=== PATIENT | male | born 1940 | race Caucasian/White ===

== ENCOUNTER → 2019-10-11 10:20 | Outpatient (BNVA) | payer MEDICARE, MEDICAID, SELFPAY | PROVIDERS: Family Provider Nurse Practitioner Family; PCP Nurse Practitioner Family; Visit Provider Nurse Practitioner Family | DX: J01.10 Acute frontal sinusitis, unspecified (principal); E11.8 Type 2 diabetes mellitus with unspecified complications; E78.2 Mixed hyperlipidemia | CPT/HCPCS: 80061; 82044; 83036; 84460 ==

== ENCOUNTER 2019-10-26 10:52 | Outpatient (CLI) | payer MEDICARE, MEDICAID, SELFPAY ==
--- NOTE | 2019-10-26 11:01 | XRR_ITS ---
PROCEDURE INFORMATION: Exam: XR Chest, 2 Views Exam date and time: 10/26/2019 11:32 AM Age: 79 years old Clinical indication: Cough; Prior surgery; Surgery type: Cardiac TECHNIQUE: Imaging protocol: XR of the chest Views: 2 views. COMPARISON: [place] Chest 1 [place] [id number] 04/27/2018 4:15 PM FINDINGS: Lungs: Hyperinflation compatible with COPD. No CHF or focal consolidation. Pleural space: Unremarkable. No pleural effusion. No pneumothorax. Heart/Mediastinum: CABG. No cardiomegaly. Bones/joints: Sternotomy. XR/XR chest 2V* [id number] IMPRESSION: No acute findings.
== END 2019-10-26 10:53 | disposition home or self-care (01) ==
LOC: RAD 10:59
PROVIDERS: Family Provider Nurse Practitioner Family; PCP Nurse Practitioner Family; Visit Provider Nurse Practitioner Family
DX: J06.9 Acute upper respiratory infection, unspecified (principal); R05 Cough
CPT/HCPCS: 71046; 87804

== ENCOUNTER 2019-11-16 11:18 | Outpatient (CLI) | payer MEDICARE, MEDICAID, SELFPAY ==
--- NOTE | 2019-11-16 11:23 | XR_ITS ---
WS: [id number] XR chest 2V* [id number] REASON FOR EXAM: pneumonia follow up FINDINGS: Hyper aerated lungs are seen with flattening's of the hemidiaphragm and increase in retrost ernal clear space consistent with advanced chronic obstructive pulmonary disease. There is previous sternotomy changes noted. The heart is small there is arteriosclerotic changes seen. The overall appearance of the chest is similar to October 26, 2019. XR/XR chest 2V* [id number] IMPRESSION: Chronic obstructive pulmonary disease advanced.
== END 2019-11-16 11:19 | disposition home or self-care (01) ==
LOC: RAD 11:21
PROVIDERS: Family Provider Nurse Practitioner Family; PCP Nurse Practitioner Family; Visit Provider Nurse Practitioner Family
DX: J44.9 Chronic obstructive pulmonary disease, unspecified (principal); J18.9 Pneumonia, unspecified organism
CPT/HCPCS: 71046

== ENCOUNTER 2019-12-14 12:45 | Outpatient (CLI) | payer MEDICARE, MEDICAID, SELFPAY ==
--- NOTE | 2019-12-14 14:15 | USR_ITS ---
PROCEDURE INFORMATION: Exam: US Bilateral Noninvasive Physiologic Study of the Lower Extremity Arteries, Limited Exam date and time: 12/14/2019 12:52 PM Age: 79 years old Clinical indication: Pain; Leg, lower and foot; Left; Additional info: Deminished pedal pulse TECHNIQUE: Imaging protocol: Left Limited noninvasive physiologic studies of lower extremity arteries. Images were documented and archived. Exam is limited. COMPARISON: No relevant prior studies available. FINDINGS: Left femoral arteries: Waveforms are unremarkable. Left infrapopliteal arteries: Waveforms are unremarkable. Left Ankle-Brachial Index: 0.51 this finding is consistent with moderate disease [facility] [id number] IMPRESSION: Left side ZEB 0.51 consistent with moderate disease
== END 2019-12-14 12:46 | disposition home or self-care (01) ==
LOC: US 12:51
PROVIDERS: Family Provider Nurse Practitioner Family; PCP Nurse Practitioner Family; Visit Provider Podiatrist Foot & Ankle Surgery
DX: R09.89 Other specified symptoms and signs involving the circulatory and respiratory systems (principal)
CPT/HCPCS: 93923

== ENCOUNTER 2020-02-07 07:57 | Outpatient (CLI) | payer MEDICARE, MEDICAID, SELFPAY ==
[2020-02-07 08:44] LABS: Blood Urea Nitrogen 12 mg/dL (8-23)
[2020-02-07] MEDS: iodixanol 320 mg/mL 100mL Btl IV (08:59)
--- NOTE | 2020-02-07 09:00 | CT_ITS ---
WS: [id number] CTA ABDOMINAL AORTA WITH RUNOFF TECHNIQUE: Contrast enhanced CTA of the abdominal aorta with bilateral lower extremity runoff. Multip lanar reformatted images were obtained. MIP reformats were also reviewed. CLINICAL INFORMATION: Lifestyle limiting claudication with severely depressed ZEB COMPARISON: None. DLP: 1550.[address] [facility] at [facility] use at least one of these dose optimization techniques: automat ed exposure control; mA and/or kV adjustment per patient size (includes targeted exams where dose is matched to clinical indication); or iterative reconstruction. FINDINGS: RIGHT: Right common iliac artery is patent. Moderate calcified atheromatous disease. Internal and ext ernal iliac arteries are patent. Right external iliac stent is patent. Mid and distal external iliac artery stents are patent with mild segmental narrowing. Right common femoral artery is patent. SUPERF ICIAL FEMORAL ARTERY IS OCCLUDED AT THE ORIGIN WITH OCCLUDED BYPASS GRAFT. Deep femoral artery is pat ent. Superficial femoral artery remains occluded to the to the popliteal fossa. Popliteal artery is o ccluded. Trifurcation is occluded. No significant runoff. Right BKA. LEFT: Left common iliac artery is patent. External iliac artery stent is patent. Internal iliac arter y is patent. Moderate calcified atheromatous disease. External iliac artery stents distally are paten t. Deep femoral artery is patent. SUPERFICIAL FEMORAL ARTERY IS OCCLUDED AT THE ORIGIN. SFA remains o ccluded to the popliteal fossa. POPLITEAL ARTERY IS OCCLUDED. Some reconstitution at the trifurcation with segmental three-vessel runoff to the ankle. Anterior tibial runoff is dominant. Sternotomy. Subsegmental atelectasis the lung bases. Emphysematous changes in the lung bases. Several spiculated nodules in the right middle lobe and right lower lobe laterally measuring 7 to 8 mm. Rony tional similar-appearing fibrotic spiculated nodule in the lingula measuring 7 mm. Normal liver. Cholelithiasis. Normal spleen. Small esophageal hiatal hernia. Normal pancreas. IVC [address]. Thickening of the left adrenal gland likely due to adrenal hyperplasia. Adrenal glands normal. Normal renal parenchymal enhancement. No hydronephrosis. Mild renal cortical a trophy. Normal caliber abdominal aorta. Celiac and SMA are patent at the origin with moderate calcifi ed atheromatous disease. Moderate calcification of the renal artery origins bilaterally. Markedly enlarged calcified prostate measuring 6.6 x 4.8 cm. Recommend correlation PSA. Bladder outle t obstruction with diffuse bladder wall thickening. Sigmoid diverticulosis. No evidence of acute dive rticulitis. Disc space narrowing worse L4-5. Lumbar scoliosis. CT/CT angio abd aorta runof [id number] IMPRESSION: 1. Enlarged calcified prostate with bladder outlet obstruction. Correlation PS A. 2. No evidence of abdominal aortic aneurysm. 3. Cholelithiasis. 4. IVC filter. 5. 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 Popliteal artery is occluded. No significant runoff. 6. Left superficial femoral artery is occluded at the origin. This remains occ luded to the popliteal. Popliteal artery is occluded to the trifurcation with d iminutive poor three-vessel runoff to the ankle. 7. Several lobulated nodules in the lung bases measuring 78 mm. Recommend furt her evaluation with chest CT.
== END 2020-02-07 07:58 | disposition home or self-care (01) ==
LOC: RADWPI 08:02
PROVIDERS: Family Provider Nurse Practitioner Family; PCP Nurse Practitioner Family; Visit Provider Internal Medicine Cardiovascular Disease
DX: I73.9 Peripheral vascular disease, unspecified (principal); N40.0 Benign prostatic hyperplasia without lower urinary tract symptoms; K80.20 Calculus of gallbladder without cholecystitis without obstruction; R91.8 Other nonspecific abnormal finding of lung field
CPT/HCPCS: 75635; 82565; 84520; Q9967

== ENCOUNTER → 2020-02-28 11:14 | Outpatient (BNVA) | payer MEDICARE, MEDICAID, SELFPAY | PROVIDERS: Family Provider Nurse Practitioner Family; PCP Nurse Practitioner Family; Visit Provider Internal Medicine Cardiovascular Disease | DX: I73.9 Peripheral vascular disease, unspecified (principal) | CPT/HCPCS: 80048; 85025; 87635 ==

== ENCOUNTER 2020-03-04 13:09 | Observation (INO) | payer MEDICARE, MEDICAID, SELFPAY ==
--- NOTE | 2020-03-04 07:30 | XACV_ITS ---
Wt: 70 kg BSA: 1.87 m2 Any Known Allergies: No known allergies Gender: Male : 1940 Exam Type: Invasive Peripheral Vascular Procedure(s): Procedure Description: Peripheral Cath Diagnostic Procedure Procedure Description: Lower extremities' angiography Procedure Description: Peripheral vascular Intervention Procedure Description: PV Balloon Procedure Description: Lower Extremity Graft Angiography Exam Priority: Routine Conclusions Peripheral Procedure Description: Critical limb ischemia of the left leg and foot , Pitkin grade V :Lelia stage IV. Procedure #1 Abdominal aorta: Luminal irregularities#2 Right renal artery has luminal irregularities. Left renal artery has renal irregularity#3 Right common iliac artery has luminal irregularity with patent previously placed stent#4 Left common iliac artery has luminal irregularity #5 Left internal artery has luminal irregularity#7 Right internal artery is chronically occluded#8 Left common femoral artery is 100% chronically occluded#9 Left profunda femoral artery has luminal irregularity#10 Right SFA has 100% chronically occluded #11 Right profundofemoral artery is chronically occluded#12 left popliteal, tibioperoneal and below the knee arteries appear to be occluded however fills with faint collaterals Intervention: Through right common femoral approach and with the help of seeker and Glidewire we were able to cross the left SFA into the tibioperoneal trunk despite of multiple balloon angioplasties we were not able to restore the flow. Selective injections in the tibioperoneal trunk showed faint collaterals supplying anterior tibial at the end of the procedure. Overall procedure remain unsuccessful without any complication. Recommendations Usual post-cath care, referred to vascular surgery for possible bypass. Hemodynamic Data Phase:Rest AO : / ( 0.0 mmHg ) @ 4:38:00 AM / ( 0.0 mmHg ) @ 4:58:00 AM / ( 0.0 mmHg ) @ 5:00:00 AM 69.0 mmHg / 69.0 mmHg ( 56.0 mmHg ) @ 5:17:00 AM 119.0 mmHg / 41.0 mmHg ( 73.0 mmHg ) @ 7:27:00 AM Access Site Site: Left Popliteal Sheath Size: 4 Fr Hemost... Method: TR Band Hemost... Success: Successful Site: Left Popliteal Sheath Size: 6 Fr Hemost... Method: TR Band Hemost... Success: Successful Site: Right Femoral artery Sheath Size: 6 Fr Hemost... Method: Mechanical Compression Hemost... Success: Successful Procedure Details Findings Procedure Consent Obtained. Pre-Procedure Time Out. Identified patient by full name and date of as verbalized by the patient/guarantor. Does the consent match the physician's order: Yes. Accurate & Complete Informed Consent: Yes. Inpatient/Outpatient History & Physical on Chart: Yes. If H&P is completed, is and addenduem needed: N/A; If yes, is the addendum complete: N/A. Visualize and Verify Site with Patient/Guarantor: N/A. Relevant Radiology Images available: Yes. Pre-op teaching completed and patient verbalized understanding. The risks, benefits, and alternatives of sedation and/or procedure were discussed by physician. The patient agrees to continue. Procedure started. PERRLA. Strong, equal hand lute packer or applier bilaterally. Lungs clear x 5 lobes. IV Site on Arrival: 20 gauge in the right forearm. IV Fluids: 0.9% NaCl at KVO. 0 mL infused prior to label maker. Pre Procedural Pulses: left dorsalis pedis was Doppled. Pre Procedural Pulses: left posterior tibial was Doppled. Pre Procedural Pulses: bilateral radial was 2+. Right BKA. Oxygen started at 2liters/min via nasal canula. bilateral groins was prepped with chloroprep then draped in the usual sterile fashion. Physician notified. Equipment: 6F - Femoral. Cardiac Cath Pack. ACIST Manifold Kit Model BT 2000. Heparinized Saline (2 units/mL), 1000 mL bag. Kit, Micropuncture. Baseline sample Acquired. HR: 65 BPM. Family () updated by Juana Rebolledo. left popliteal and posterior tibial, DP and bitalerial groins was prepped with chloroprep then draped in the usual sterile fashion. Physician arrived. Physician scrubbed in. Time out performed with cath team. Immediate Pre-Procedure Time Out. Correct Patient: Yes; Correct Procedure: Yes; Correct Site: Yes; Correct Patient Position: Yes; Correct Supplies: Yes; Dried Flammable Prep: Yes; Blood Products Available: No;. Precious (ultrasound) to assist. updated. Lidocaine 1% infiltrated to the left posterior tibial. Arterial access obtained. Wire inserted and removed. sheath out. Lidocaine 1% infiltrated to the left DP. Wire inserted. seeker inserted over glide wire. wire out. hand injection. wire inserted. glide wire removed. seeker removed. Ped sheath KVO. Lidocaine 1% infiltrated to the right groin. Arterial access obtained with micropuncture set. venous access. wire and needle out. pressure held. Ultrasound called. Garcia from us arrived. Glidewire inserted into DP sheath. wire and catheter out. glidewire and seeker inserted. Glidewire and seeker out. DP sheath KVO. Garcia from US helping with access. A 5FrFr UF catheter in over wire. Side port of DP sheath attached to Normal Saline flush at KVO to maintain patency. Abdominal aortogram performed in AP @ 10 mL/sec for a total of 30 mL. glidewire inserted. catheter out. 6 fr short sheath exchanged for a 6fr long sheath. Brenda breaking out Mat for lunch. Left leg runoff performed 10ml for total of 30ml. [place] wire inserted and Seeker inserted over the glide. Attempting to advance Seeker and wire down left SFA. wire out hand injection performed. wire reinserted and attempted to advance down left SFA. wire out hand injection performed x 2. glidewire and seeker out. glidewire inserted into anterior tibial sheath. seeker inserted over glidewire. Side port of femoral sheath attached to Normal Saline flush at KVO to maintain patency. Glu check 95. Inflation number : 1 A AB ARMADA 35 OTW [id number] was prepped and advanced across the Superficial Femoral, Left , then inflated to 3 CORNELIO for 0:38 seconds. Inflation number: 2 The AB ARMADA 35 OTW [id number] was reinflated across the Superficial Femoral, Left, to 4 CORNELIO for 0:50 seconds. Inflation number: 3 The AB ARMADA 35 OTW [id number] was reinflated across the Superficial Femoral, Left, to 8 CORNELIO for 1:02 seconds. Inflation number: 4 The AB ARMADA 35 OTW [id number] was reinflated across the Superficial Femoral, Left, to 8 CORNELIO for 0:44 seconds. Inflation number: 5 The AB ARMADA 35 OTW [id number] was reinflated across the Superficial Femoral, Left, to 8 CORNELIO for 1:04 seconds. Inflation number: 6 The AB ARMADA 35 OTW [id number] was reinflated across the Superficial Femoral, Left, to 8 CORNELIO for 0:30 seconds. Inflation number: 7 The AB ARMADA 35 OTW [id number] was reinflated across the Superficial Femoral, Left, to 8 CORNELIO for 0:18 seconds. balloon out. hand injection (through upper sheath)10ml/sec for a total of 30ml. 6 fr long sheath exchanged for a 6fr short sheath. A TR Band was successful obtaining hemostatsis at the Left Popliteal insertion site. hand injection through femoral sheath. A Mechanical Compression was successful obtaining hemostatsis at the Right Femoral artery insertion site. TR band placed. Hemostasis obtained. Sheath(s) removed and manual pressure held until hemostasis was achieved. Sterile 4x4 and Op-site applied to the puncture site. No oozing or hematoma noted. Post sheath removal instructions were given and the patient verbalized understanding. Post Procedure: Pulses reassessed and unchanged. PERRLA. Strong, equal hand lute packer or applier bilaterally. No VTE prophylaxis required. Medication's Wasted: Lidocaine 1% = 4 mL. Medication's Wasted: Heparin = 2000 units. Total IV fluids: 250 mL. Fluoro: 70:07. Contrast type used: Visipaque 320 mgI/mL, 500 mL bottle. [id number]. Complications: none. Estimated blood loss: 5mL-10mL. Procedure completed. Patient transferred by bed to 1st floor. Post-op diagnosis: severe PAD. Occluded Left SFA. TR band removed. Vital chart was stopped. Procedure Medications Start: 9:28 AM Stop: 9:28 AM Medication: Versed Amount: 1 mg Route: I.V. Start: 9:28 AM Stop: 9:28 AM Medication: Fentanyl Amount: 50 mcg Route: I.V. Start: 10:19 AM Stop: 10:19 AM Medication: Versed Amount: 1 mg Route: I.V. Start: 10:19 AM Stop: 10:19 AM Medication: Fentanyl Amount: 50 mcg Route: I.V. Start: 11:13 AM Stop: 11:13 AM Medication: Versed Amount: 1 mg Route: I.V. Start: 11:13 AM Stop: 11:13 AM Medication: Fentanyl Amount: 50 mcg Route: I.V. Start: 12:06 PM Stop: 12:06 PM Medication: Versed Amount: 1 mg Route: I.V. Start: 12:21 PM Stop: 12:21 PM Medication: Fentanyl Amount: 50 mcg Route: I.V. I, the attending physician, have reviewed and verified all procedure medications. Yes, all medications given per verbal order History/Risk Factors Hypertension: Yes Dyslipidemia: Yes Diabetic Therapy: Oral Peripheral Arterial Disease (PAD): Yes Myocardial Infarction (WA): No Obesity: No Renal Disease: No Tobacco Use: Former Prior Interventions PCI: No CABG: Yes Valve Surgery: No Report Signatures Finalized by:Chasidy Hall MD on 03/17/2020 3:46:32 PM
[2020-03-04 08:12] VITALS: BP 134/83; PULSE 58; RESP 16; TEMP 37.1; O2SAT 97; BMI 21.6
--- NOTE | 2020-03-04 08:17 | USCV_ITS ---
Mauro Espino Age: 79 Gender: M : 1940 Exam Date: 03/04/2020 09:35 Ordering Phys: Chasidy Hall MD ([email or web address]) Technologist: Tahmina Mock Exam Location: [facility] [place] Indication: Findings Guidance provided in construction craft laborer for left DPA access. The dorsalis pedis artery appears to be patent. Only B-mode imaging is available. Conclusions Dorsalis pedis artery is identified and appears to be patent Dr Jeffery Wilkes MD FAC (Electronically Signed) Final Date: 05 March 2020 08:14 S
--- NOTE | 2020-03-04 09:06 | P.HP_ITS ---
Providers/Chief Complaint Admitting Physician: Chasidy Hall MD Primary Care Provider: ANNE MARIE Beverly Chief Complaint: life style limiting claudication of left leg History of Present Illness Details: Reason for : Lifestyle limiting claudication with severely depressed ZEB history of PAD history of vascular surgery and amputation of the right leg. 79-year-old male past medical history significant for severe PAD, continuous tobacco abuse hypertension hyperlipidemia diabetes mellitus who has been referred to us from Dr. Nascimento for worsening of lifestyle limiting claudication of left leg. Patient has ruborous foot. He has to sit down after few feet for few minutes to get over his cramping pain in the leg and claudication. He denies of pain at rest at this moment. He has history of vascular surgery with bypass graft and stents. 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 CTA was performed which showed severe left SFA proximal to distal occlusion, popli teal arterial disease extend into trifurcation and a monophasic flow. Today patient is here for peripheral angiogram and percutaneous intervention if indicated. Patient has been explained all risk benefit and alternative for the procedure. Patient has been explained warning regarding drug-coated balloon release by FDA as it increase mortality and subset. Patient would like to proceed with it and has given me permission to use drug-coated balloon if needed. Review of Systems Skin/Breast: Denies: surgical incision Medications/Allergies Home Medications Medication Instructions Recorded Confirmed Last Taken Type aspirin 81 mg tablet,delayed 81 mg PO DAILY tab 09/08/19 03/04/20 03/04/20 05:00 History release gabapentin 300 mg capsule 300 mg PO TID 09/08/19 03/04/20 03/04/20 05:00 History ramipril 2.5 mg capsule 2.5 mg PO DAILY cap 09/08/19 03/04/20 03/04/20 05:00 History lancets 30 gauge #25 each 09/27/19 02/14/20 Unknown Rx Diabetic Shoes #1 ea 11/21/19 02/14/20 Unknown Rx glipizide 5 mg tablet 2.5 mg PO DAILY #45 tab 12/26/19 02/14/20 03/03/20 05:00 Rx alendronate 70 mg tablet 70 mg PO .Q 7 DAYS #12 tab 01/29/20 03/04/20 03/03/20 06:00 Rx simvastatin 40 mg tablet 40 mg PO DAILY #90 tab 02/12/20 03/04/20 03/03/20 17:00 Rx tamsulosin 0.4 mg capsule 0.4 mg PO DAILY #90 cap 02/16/20 03/04/20 03/04/20 05:00 Rx omeprazole 20 mg PO BID 03/04/20 03/04/20 03/04/20 05:00 History Allergies Allergy/AdvReac Type Severity Reaction Status Date / Time No Known Allergies Allergy Verified 02/13/20 10:17 PFSH Acute PFSH: Medical History Amputation below knee Enrolled in chronic care management GERD (gastroesophageal reflux disease) Hx pulmonary embolism Hyperlipemia, mixed Type 2 diabetes mellitus with complication, without long-term current use of insulin Surgical History H/O cataract extraction RIGHT Hx of CABG Family History Mother Diabetes Hypertension Other CAD (coronary artery disease) Myocardial infarction Social History Smoking and tobacco status: former smoker Second hand smoke exposure: No Smoking risk assessment/counseling performed?: No Alcohol intake: never Desire information about alcohol rehabilitation?: No Counseling given: No Desire information about substance/drug rehabilitation?: No Counseling given: No Lives independently: Yes Household members: spouse Marital status: Current occupational status: retired History of recent travel: No Current gender identity: Male Vitals/I&O/Wt Last Vital Signs Temp 98.7 F 03/04/20 08:12 Pulse 58 L 03/04/20 08:12 Resp 16 03/04/20 08:12 BP 134/83 03/04/20 08:12 Pulse Ox 97 03/04/20 08:12 Weight last 48 hrs Weight 155 lb Physical Exam Narrative: EXAM NARRATIVE: GENERAL: Patient is alert, awake and oriented x3. NECK: No jugular vein distension. HEENT: No cyanosis. No icterus. No pallor. HEART: Regular S1 and S2. No murmur, rub or gallop. LUNGS: Clear to auscultate bilaterally. ABDOMEN: Soft, nontender and nondistended. Positive bowel sounds. No guarding, rebound or tenderness. CENTRAL NERVOUS SYSTEM: Grossly nonfocal. EXTREMITIES: Lower extremities with right below the knee amputation, no anterior and posterior tibial pulse on the left foot which appear to be ruborous Data Other Labs: CTA 1. Enlarged calcified prostate with bladder outlet obstruction. Correlation PSA. 2. No evidence of abdominal aortic aneurysm. 3. Cholelithiasis. 4. IVC filter. 5. 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 Popliteal artery is occluded. No significant runoff. 6. Left superficial femoral artery is occluded at the origin. This remains occluded to the popliteal. Popliteal artery is occluded to the trifurcation with diminutive poor three-vessel runoff to the ankle. 7. Several lobulated nodules in the lung bases measuring 78 mm. Recommend further evaluation with chest CT. Dictated By:Ricardo Duarte MD Signed By:Ricardo Duarteigned Date/Time:02/07/20 0931 A&P Assessment and plan (1) Peripheral arterial disease: Patient has lifestyle limiting claudication. Patient has severe peripheral vascular disease with chronic occlusion of left SFA all the way to popliteal artery. Today he is here for peripheral angiogram and percutaneous angioplasty/CSI atherectomy/balloon angioplasty if indicated. We will proceed with the procedure. Further plan will be advised after that Status: Acute (2) Type 2 diabetes mellitus with complication, without long-term current use of insulin: We will monitor with sliding scale Status: Acute Attestations Medical Necessity Statement*: I am not expecting his stay to cross more than 1 midnight Coding Level of Care Code New Pt Acute Treasury Specialist for Chg Fwd Patient Type New Medical Decision Making Moderate Complexity Diagnoses Peripheral arterial disease I73.9 Type 2 diabetes mellitus with complication, without long-term current use of insulin E11.8
--- NOTE | 2020-03-04 13:05 | PC.NURSE ---
Patient in room 112-2 at this time received from paint laboratory technician PCI; patient is alert and oriented; all monitoring equipment placed and patient educated on o2 safety as well as oriented to room. Patient verbalizes understanding.
[2020-03-04 13:06] LABS: Glucose Point of Care 95 mg/dL (70-110)
[2020-03-04] MEDS: nitroglycerin 1 gm/inch oint Pkt 1 INCH TOPICAL ×2 (13:51→19:21)
--- NOTE | 2020-03-04 14:10 | PC.NURSE ---
Called Dr stringer to clarify instructions for nitro paste and Kpab placement. Instructions to apply Nitro to LLE q6h as well as k pad.
[2020-03-04] MEDS: gabapentin 300 mg Capsule PO ×2 (15:38→20:47)
[2020-03-04] MEDS: pantoprazole DR 40 mg Tablet PO (18:22)
--- NOTE | 2020-03-04 19:15 | PC.NURSE ---
spoke with Dr stringer about patient being diabetic with no check or coverage instructions for accu checks and a low dose SS novolog given
[2020-03-04 19:21] VITALS: BP 127/71; PULSE 65; RESP 18; O2SAT 93
--- NOTE | 2020-03-04 19:30 | PC.NURSE ---
Received report from CHUY Catalan. Pt appears to be resting comfortably in bed with no needs at this time.
[2020-03-04 20:09] LABS: Glucose Point of Care 214 mg/dL (70-110)
[2020-03-04 23:21] VITALS: BP 118/62; PULSE 62; RESP 14; TEMP 36.7; O2SAT 90
[2020-03-05] MEDS: nitroglycerin 1 gm/inch oint Pkt 1 INCH TOPICAL ×2 (01:36→08:07)
[2020-03-05 03:00] VITALS: BP 119/57; PULSE 72; RESP 22; TEMP 37.2; O2SAT 91
[2020-03-05 06:04] LABS: Glucose Point of Care 112 mg/dL (70-110)
[2020-03-05 07:47] VITALS: BP 123/78; PULSE 76; RESP 21
[2020-03-05] MEDS: tamsulosin 0.4 mg Capsule PO (08:07)
[2020-03-05] MEDS: gabapentin 300 mg Capsule PO (08:07)
[2020-03-05] MEDS: aspirin 81 mg EC Tablet PO (08:07)
[2020-03-05] MEDS: atorvastatin 40 mg Tablet 20 MG PO (08:08)
[2020-03-05] MEDS: pantoprazole DR 40 mg Tablet PO (08:08)
[2020-03-05] MEDS: lisinopril 10 mg Tablet PO (08:08)
--- NOTE | 2020-03-05 08:50 | PM.DCS ---
Discharge Providers Date of Admission: 03/04/20 13:09 Date of Discharge: March 05, 2020 Attending Provider at Admission: Chasidy Hall MD Attending Provider at Discharge: Chasidy Hall MD Primary Care Provider: ANNE MARIE Beverly Diagnoses at Discharge Discharge Diagnosis (1) Peripheral arterial disease: Status: Acute (2) Type 2 diabetes mellitus with complication, without long-term current use of insulin: Status: Acute Reason for Visit Reason for Visit: life style limiting claudication of left leg Hospital Course Discharge Summary: 79-year-old male past medical history significant for severe PAD, continuous tobacco abuse hypertension hyperlipidemia diabetes mellitus who has been referred to us from Dr. Nascimento for worsening of lifestyle limiting claudication of left leg. Patient has ruborous foot. He has to sit down after few feet for few minutes to get over his cramping pain in the leg and claudication. He denies of pain at rest at this moment. He has history of vascular surgery with bypass graft and stents. 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 Patient underwent peripheral angiogram which showed severe left SFA proximal to distal occlusion, popliteal arterial disease extend into trifurcation and a monophasic flow. Despite of crossing the lesion and multiple balloon angioplasty were not able to establish flow. He will be referred to vascular surgery for possible bypass. There was no overnight event currently stable his foot is warm and he is not in pain at rest. I will refer him to Dr. Malcom Hernandez as an outpatient in [facility]. Patient agrees to it. Physical Exam Narrative: EXAM NARRATIVE: GENERAL: Patient is alert, awake and oriented x3. NECK: No jugular vein distension. HEENT: No cyanosis. No icterus. No pallor. HEART: Regular S1 and S2. No murmur, rub or gallop. LUNGS: Clear to auscultate bilaterally. ABDOMEN: Soft, nontender and nondistended. Positive bowel sounds. No guarding, rebound or tenderness. CENTRAL NERVOUS SYSTEM: Grossly nonfocal. EXTREMITIES: Lower extremities with right below the knee amputation, no anterior and posterior tibial pulse on the left foot which appear to be ruborous Discharge Data Data Completed and Pending: Completed Studies During Hospitalization Category Date Time Status CV guide vascular access [id number] Rout ine Ultrasound 03/04/20 08:17 Completed Pending at discharge Category Date Time Status DEVELOPMENT WRITER request for service Routin e Exams 03/04/20 07:30 Taken CV guide vascular access [id number] Rout ine Ultrasound 03/04/20 10:50 Taken Labs from last 24 hours 03/05/20 03/04/20 03/04/20 06:00 20:00 12:02 POC Glucose 112 214 95 Vitals: Last Vital Signs Temp 98.9 F 03/05/20 03:00 Pulse 76 03/05/20 07:47 Resp 21 H 03/05/20 07:47 BP 123/78 03/05/20 07:47 Pulse Ox 91 03/05/20 03:00 Discharge Plan Discharge Patient Disposition: Home, Self-Care Condition: Stable Prescriptions: Continued ramipril 2.5 mg capsule 2.5 mg PO DAILY RF: 0 aspirin 81 mg tablet,delayed release (DR/EC) 81 mg PO DAILY RF: 0 gabapentin 300 mg capsule 300 mg PO TID RF: 0 (DME) Diabetic Shoes Qty: 1 RF: 0 alendronate [Fosamax] 70 mg tablet 70 mg PO .Q 7 DAYS Qty: 12 RF: 1 simvastatin 40 mg tablet 40 mg PO DAILY Qty: 90 RF: 0 tamsulosin [Flomax] 0.4 mg capsule 0.4 mg PO DAILY Qty: 90 RF: 0 omeprazole 20 mg capsule,delayed release(DR/EC) 20 mg PO BID RF: 0 No Action glipizide 5 mg tablet See Rx Instructions .ROUTE .COMPLEX Qty: 45 RF: 0 lancets [OneTouch Delica Plus Lancet] 30 gauge misc See Rx Instructions .ROUTE .COMPLEX Qty: 100 RF: 0 Discharge Orders: Discharge Order (Routine); Ordered 03/05/20 Ordered By: Chasidy Hall Referrals: Chasidy Hall MD [Physician] - (You will be referred to Dr. Malcom Hernandez at [facility] for possible bypass of the left leg. Dr. Hernandez's office will contact you. If you do not hear from Dr. Hernandez's office over next [address] Liu office. He noticed any bleeding from the right groin please call Dr. Hall's office.) Discharge Diet: Cardiac Discharge Activity: Increase activity as tolerated Patient Instructions: Peripheral Artery Disease (DC), Peripheral Vascular Angioplasty (DC), Post Angiogram Home Care Instructions Activity Restrictions/Additional Instructions: You will be referred to Dr. Malcom Hernandez at [facility] for possible bypass of the left leg. Dr. Hernandez's office will contact you. If you do not hear from Dr. Hernandez's office over next [address] Liu office. He noticed any bleeding from the right groin please call Dr. Hall's office. Discharge Date/Time: 03/05/20 10:57 Discharge Attestations Time Spent in Discharge Care*: less than 30 min Quality Metrics Clinical Quality Measures During this hospital stay, did patient experience: None Coding Level of Care Code Established Pt Acute Supervisor Policy Change Clerks for Chg Fwd Patient Type Established History Expanded Problem Focused Exam Expanded Problem Focused Medical Decision Making Moderate Complexity Diagnoses Peripheral arterial disease I73.9 Type 2 diabetes mellitus with complication, without long-term current use of insulin E11.8
[2020-03-05 10:25] VITALS: PULSE 77
[2020-03-05 10:40] VITALS: BP 123/78; PULSE 77; RESP 19; O2SAT 96
== END 2020-03-05 10:57 | disposition home or self-care (01) ==
LOC: CSU 13:10
PROVIDERS: Admitting Provider Internal Medicine Cardiovascular Disease; PCP Nurse Practitioner Family; Visit Provider Internal Medicine Cardiovascular Disease
DX: I70.92 Chronic total occlusion of artery of the extremities (principal); I73.9 Peripheral vascular disease, unspecified; Z95.1 Presence of aortocoronary bypass graft; Z87.891 Personal history of nicotine dependence; I10 Essential (primary) hypertension; E78.5 Hyperlipidemia, unspecified; E11.8 Type 2 diabetes mellitus with unspecified complications; Z79.82 Long term (current) use of aspirin
CPT/HCPCS: 12345; 36415; 36416; 37224; 75625; 75710; 76937; 82962; 96372; A4216; C1725; C1769; C1887; C1894; G0378; J1644; J1815; J2001; J2250; J3010; J7030; Q0163; Q9967

== ENCOUNTER → 2020-03-07 11:06 | Outpatient (BNVA) | payer MEDICARE, MEDICAID, SELFPAY | PROVIDERS: PCP Nurse Practitioner Family; Visit Provider Nurse Practitioner Family | DX: N40.0 Benign prostatic hyperplasia without lower urinary tract symptoms (principal); R93.89 Abnormal findings on diagnostic imaging of other specified body structures; R91.1 Solitary pulmonary nodule | CPT/HCPCS: 84153 ==

== ENCOUNTER → 2020-05-10 11:29 | Outpatient (BNVA) | payer MEDICARE, MEDICAID, SELFPAY | PROVIDERS: PCP Nurse Practitioner Family; Visit Provider Nurse Practitioner Family | DX: E11.8 Type 2 diabetes mellitus with unspecified complications (principal); E78.2 Mixed hyperlipidemia; Z79.899 Other long term (current) drug therapy | CPT/HCPCS: 80053; 80061; 82043; 83036 ==

== ENCOUNTER → 2020-06-06 11:29 | Outpatient (BNVA) | payer MEDICARE, MEDICAID, SELFPAY | PROVIDERS: PCP Nurse Practitioner Family; Visit Provider Nurse Practitioner Family | DX: R05 Cough (principal); Z20.828 Contact with and (suspected) exposure to other viral communicable diseases | CPT/HCPCS: 87635 ==

== ENCOUNTER 2020-06-07 17:44 | Emergency (ER) | payer MEDICARE, MEDICAID, SELFPAY ==
[2020-06-07 18:00] VITALS: BP 135/71; PULSE 81; RESP 30; TEMP 37.5; O2SAT 96; BMI 22.4
--- NOTE | 2020-06-07 18:39 | XRR_ITS ---
PROCEDURE INFORMATION: Exam: XR Chest, 1 View Exam date and time: 06/07/2020 6:50 PM Age: 80 years old Clinical indication: Shortness of breath; Patient HX: Cough, SOB TECHNIQUE: Imaging protocol: XR of the chest Views: 1 view. COMPARISON: CR XR chest 2V* [id number] 11/16/2019 11:30 AM FINDINGS: Lungs: Linear atelectasis or scarring in the lung bases. Changes of emphysema. No focal consolidation. Pleural space: Unremarkable. No pleural effusion. No pneumothorax. Heart/Mediastinum: Unremarkable. No cardiomegaly. Bones/joints: Sternotomy wires. Right rotator cuff arthropathy. XR/XR chest 1V [id number] IMPRESSION: No acute findings.
[2020-06-07 18:49] VITALS: BP 135/71; PULSE 78; RESP 18; O2SAT 95
[2020-06-07 18:58] VITALS: O2SAT 93
[2020-06-07 19:04] VITALS: O2SAT 97
[2020-06-07] MEDS: dexamethasone 4 mg/mL INJ 6 MG IVP (19:39)
[2020-06-07 19:41] VITALS: BP 134/70; PULSE 88; RESP 20; O2SAT 94
[2020-06-07 19:55] VITALS: BP 134/70; PULSE 88; RESP 20; O2SAT 94
--- NOTE | 2020-06-07 19:55 | PC.NURSE ---
PATIENT GIVEN ALBUTEROL NEB PRIOR TO DC
--- NOTE | 2020-06-08 18:20 | ED_ITS ---
HPI - SOB/Dyspnea General: Chief Complaint: Shortness of Breath/Dyspnea Stated Complaint: SOB/ COVID POSITIVE Time Seen by Provider: 06/07/20 18:38 History of Present Illness: HPI Narrative: 80-year-old male presents after testing positive for COVID-19, and being told by office staff at his primary care physician's office to come to the hospital. He essentially has no complaints at this point. I am told he had a couple of loose stools earlier. He had tested positive a couple of days ago. He had a fever then, not now. He says that he was short of breath, but currently is not. He is breathing room air. MD elicited complaint: shortness of breath Onset (ago): day(s) Context: recent illness Timing: intermittent Severity: moderate Exacerbating factors: nothing Relieving factors: nothing Associated symptoms: Reports cough and fever(s); Deny chest pain, nausea, palpitations or vomiting Review of Systems Const: Reports: fever(s) Eyes: Denies: change in vision or blurry vision ENMT: Denies: change in hearing, post nasal drip or sinus pain Card: Denies: chest pain, palpitations or irregular heart rhythm Resp: Reports: dyspnea and non-productive cough; Denies: productive cough or wheezing GI: Reports: diarrhea; Denies: nausea or vomiting : Denies: difficulty urinating or hematuria Musc: Denies: neck pain or joint redness Skin/Breast: Denies: rash or erythema Neuro: Denies: headache(s) or seizure-like activity Psych: Denies: anxiety PFS ED PFSH: Medical History (Updated 06/07/20 @ 19:14 by Papo Falk DO) Amputation below knee Enrolled in chronic care management GERD (gastroesophageal reflux disease) Hx pulmonary embolism Hyperlipemia, mixed Type 2 diabetes mellitus with complication, without long-term current use of insulin Surgical History H/O cataract extraction RIGHT Hx of CABG Family History Mother Diabetes Hypertension Other CAD (coronary artery disease) Myocardial infarction Social History Smoking and tobacco status: former smoker Second hand smoke exposure: No Smoking risk assessment/counseling performed?: No Alcohol intake: never Desire information about alcohol rehabilitation?: No Counseling given: No Desire information about substance/drug rehabilitation?: No Counseling given: No Lives independently: Yes Household members: spouse Marital status: Current occupational status: retired History of recent travel: No Current gender identity: Male Physical Exam Const: GENERAL APPEARANCE: well developed ORIENTATION/CONSCIOUSNESS: Yes oriented to person and Yes oriented to place; not oriented to time HENMT: COMMON NORMALS: normocephalic HEAD & SCALP: normocephalic; no scalp tenderness FACE & SINUS: normal facial exam NOSE: No nasal discharge present Eye: COMMON NORMALS: Equal, round and reactive pupils present, EOMs intact bilaterally and conjunctivae normal EYELID: eyelids normal CONJUNCTIVA: Yes conjunctivae normal PUPIL: Yes Equal, round and reactive pupils present Neck/C-Spine: GENERAL: No tracheal deviation Chest: COMMONS NORMALS: normal inspection of the chest CHEST: No tenderness Resp: COMMON NORMALS: clear to auscultation bilaterally EFFORT & INSPECTION: No tachypneic, No respiratory distress, No retractions, No uses accessory muscles and No tracheal deviation AUSCULTATION: clear to auscultation bilaterally, no rhonchi, no wheezes and lung sounds not diminished Cardio: COMMON NORMALS: regular rate and regular rhythm RATE: regular rate RHYTHM: regular rhythm HEART SOUNDS: no murmurs PERIPHERAL PULSES: radial pulses present GI: INSPECTION: No abdominal distension AUSCULTATION: No Hyperactive bowel sounds present and No Hypoactive bowel sounds present PALPATION: No Guarding due to palpation present (GI) and No Rigid due to palpation PERCUSSION: no dullness to percussion and no tympanic to percussion Neuro: SENSORIUM/ORIENTATION: Yes oriented to person, Yes oriented to place and No oriented to time Skin: COMMON NORMALS: no rashes or lesions noted GENERAL SKIN EXAM: no rashes or lesions noted Course Vital Signs: Vital signs: Vital Signs Temperature 99.5 F 06/07/20 18:00 Pulse Rate 88 06/07/20 19:55 Respiratory Rate 20 H 06/07/20 19:55 Blood Pressure 134/70 06/07/20 19:55 Pulse Oximetry 94 06/07/20 19:55 MDM - SOB/Dyspnea MDM Narrative: Medical decision making narrative: 80-year-old male who is COVID positive. He is not requiring oxygen at this point. His x-ray does show some peripheral infiltrates suggestive of COVID-19 pneumonia. His vitals however are good. He is awake and talking. In this case, hospitalization is not likely required. He will be discharged Discharge Plan Discharge Patient Disposition: Home Clinical Impression: COVID-19, Pneumonia due to COVID-19 virus Condition: Stable Prescriptions: New dexamethasone 6 mg tablet 6 mg PO DAILY Qty: 5 RF: 0 No Action ramipril 2.5 mg capsule 2.5 mg PO DAILY RF: 0 aspirin 81 mg tablet,delayed release (DR/EC) 81 mg PO DAILY RF: 0 (DME) Diabetic Shoes Qty: 1 RF: 0 alendronate [Fosamax] 70 mg tablet 70 mg PO .Q 7 DAYS Qty: 12 RF: 1 tamsulosin [Flomax] 0.4 mg capsule 0.4 mg PO DAILY Qty: 90 RF: 0 glipizide 5 mg tablet See Rx Instructions .ROUTE .COMPLEX Qty: 45 RF: 0 lancets [OneTouch Delica Plus Lancet] 30 gauge misc See Rx Instructions .ROUTE .COMPLEX Qty: 100 RF: 0 (DME) Blood Glucose Test Strip See Rx Instructions .ROUTE .MEDSUPPLY Qty: 10 RF: 0 omeprazole 20 mg capsule,delayed release(DR/EC) See Rx Instructions .ROUTE .COMPLEX Qty: 60 RF: 0 gabapentin 300 mg capsule 300 mg PO TID Qty: 270 RF: 0 simvastatin 40 mg tablet See Rx Instructions .ROUTE .COMPLEX Qty: 90 RF: 0 Discharge Orders: Discharge Order (Routine); Ordered 06/07/20 Ordered By: Papo Falk Referrals: Dulce Maria Alonzo FNP [Primary Care Provider] - 4-7 days Discharge Diet: Advance as tolerated Discharge Activity: Limit activity as instructed Patient Instructions: Viral Pneumonia (ED) Activity Restrictions/Additional Instructions: Medications as directed. Use your inhaler given to you in the ER, 2 puffs every 4 hours for the next 48 hours, then as needed. Watch your blood sugars closely, as they may increase on the dexamethasone. Return for worsening shortness of breath despite treatment, mental status changes, worsening diarrhea, other concerning symptoms. You should isolate your self from other [id number] positive people for at least 2 weeks. Discharge Date/Time: 06/07/20 19:56 Coding Level of Care Code ED [employer] for [employer]
== END 2020-06-07 19:56 | disposition home or self-care (01) ==
PROVIDERS: Emergency Provider Emergency Medicine; PCP Nurse Practitioner Family
DX: U07.1 COVID-19 (principal); J12.89 Other viral pneumonia; Z79.82 Long term (current) use of aspirin; Z89.519 Acquired absence of unspecified leg below knee; E78.2 Mixed hyperlipidemia; E11.9 Type 2 diabetes mellitus without complications; Z95.1 Presence of aortocoronary bypass graft; Z87.891 Personal history of nicotine dependence
CPT/HCPCS: 12345; 71045; 99283; J1100; J3535

== ENCOUNTER 2020-06-14 12:05 | Inpatient (IN) | payer MEDICARE, MEDICAID, SELFPAY ==
[2020-06-14] VITALS (28 sets, daily range): BP systolic 90–122; BP diastolic 44–84; PULSE 51–108; RESP 11–34; TEMP 36.8; O2SAT 91–99; BMI 24.4
--- NOTE | 2020-06-14 12:08 | XR_ITS ---
WS: [id number] Portable AP upright chest, 06/14/2020 Clinical Data: sob Comparison: Portable chest, 06/07/2020. Findings: There are patchy bilateral opacities which could represent minimal pneumonia. No nodules, m asses or effusions are seen. The heart is normal. The pulmonary vascularity is not increased. No pneu mothorax is seen. The diaphragms are flattened. Midline sternotomy sutures are present. The aortic ar ch and descending aorta show tortuosity and calcification. XR/XR chest 1V portable [id number] Impression: 1. Patchy bilateral opacities which could represent pneumonia recommend repeat chest x-ray in one to 2 days. 2. Atherosclerosis and hyperinflation.
--- NOTE | 2020-06-14 12:08 | ECG_ITS ---
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 Measurements Intervals [place] Rate: 74 P: 140 MD: 153 QRS: -16 QRSD: 120 T: 152 QT: 370 QTc: 412 Interpretive Statements ELECTRONIC VENTRICULAR PACEMAKER ABNORMAL RHYTHM ECG Compared to ECG 04/27/2018 20:05:44 Sinus rhythm no longer present Ventricular premature complex(es) no longer present Left-axis deviation no longer present Myocardial infarct finding no longer present Electronically Signed On 06-14-2020 20:37:51 CDT by Chasidy Hall M.D. [id number]
[2020-06-14 12:21] LABS: ABG PCO2 26.7 mmHg (35-45); ABG PH Result 7.48 (7.35-7.45); Arterial Blood Gas Hematocrit 50.1 % (42-52); Blood Gas Allen Test Pos; Blood Gas Operator Identificat MONRO; Blood Gas Sample Site Radial, left; Blood Gas Sample Type Arterial; HCO3 ABG 19.8 mmol/L (22-26); Oxygen Device ROOM AIR; PO2 ABG 50.1 mmHg (80.0-100.0)
[2020-06-14 12:50] LABS: Basophils % 0.2 %; Hematocrit 47.4 % (42.0-52.0); Hemoglobin 15.9 g/dL (11.7-16.6); Lymphocytes # 0.5 10^3/uL (0.8-4.8); Lymphocytes % 8.3 %; Mean Corpuscular HGB Conc 33.5 g/dL (30.0-36.0); Mean Corpuscular Hemoglobin 29.4 pg (28.0-34.0); Mean Corpuscular Volume 87.6 fL (80-94); Mean Platelet Volume 9.7 fL (7.4-10.4); Monocytes # 0.6 10^3/uL (0.2-0.9); Monocytes % 8.9 %; Neutrophils # 5.18 10^3/uL (1.8-7.7); Neutrophils % 82.1 %; Nucleated Red Blood Cells % 0 %; Platelet Count 243 10^3/cmm (130-400); Red Blood Count 5.41 10^6/uL (4.1-5.3); Red Cell Distribution Width 14.3 % (12.1-15.1); White Blood Count 6.3 10^3/uL (4.0-10.0)
[2020-06-14 13:07] LABS: Lactic Sepsis W/Reflex 1.8 mmol/L (0.5-2.2)
[2020-06-14 13:08] LABS: Alanine Aminotransferase 16 U/L (0-41); Albumin Level 3.8 g/dL (3.5-5.2); Alkaline Phosphatase 64 IU/L (40-130); Anion Gap 17.2 (5-19); Aspartate Amino Transferase 26 U/L (0-40); Blood Urea Nitrogen 24 mg/dL (8-23); C Reactive Protein 43.9 mg/L (0.0-4.9); Calcium 8.5 mg/dL (8.5-10.5); Carbon Dioxide 23 mmol/L (22-29); Chloride 92 mmol/L (98-107); Ferritin 671 ng/mL (30-400); Globulin 3.3 g/dL (1.3-4.6); Glucose 157 mg/dL (65-115); Lactate Dehydrogenase 282 U/L (135-225); Osmolality Calculated 273 mOsm/kg (285-295); Potassium 4.2 mmol/L (3.5-5.1); Sodium 128 mmol/L (136-145); Total Bilirubin 0.6 mg/dL (0.15-1.2); Total Protein 7.1 g/dL (6.6-8.7)
[2020-06-14 13:12] LABS: Fibrinogen 489 mg/dL (174-498)
[2020-06-14 13:13] LABS: D Dimer 0.92 ug/mIFEU (0-0.59)
--- NOTE | 2020-06-14 13:23 | ED_ITS ---
Documented by User: Jany Quinonesmino 06/14/20 16:42 HPI - SOB/Dyspnea General: Chief Complaint: Shortness of Breath/Dyspnea Stated Complaint: COVID POSITIVE, SOB, COUGH,TEMP Time Seen by Provider: 06/14/20 12:08 Source: patient Mode of arrival: ambulatory Limitations: no limitations History of Present Illness: HPI Narrative: 80 yo male patient presents to ER stating he tested positive for covid and over the last few days has progressively become more SOB and weakness. Pt denies chest pain, abd pain, n/v/d. Pt states he is unsure if he has been running a fever. Pt states he has not eaten or drank much last few days. Pt has PMH CABG, COPD MD elicited complaint: shortness of breath, cough and pain with inspiration Pertinent past history: COPD Onset (ago): day(s) (3) Context: other (Covid-19) Timing: progressively worsening Severity: moderate Exacerbating factors: exertion Relieving factors: nothing Known history of: COPD Associated symptoms: Reports chest congestion and cough; Deny abdominal pain, chest pain, dizziness, fever(s), lightheadedness, nausea, palpitations, syncope or vomiting Treatment prior to arrival: none Related Data: Home oxygen amount: none Review of Systems General: Reports: 10 or more systems reviewed and unremarkable except in HPI and below Const: Reports: body aches, change in appetite, fatigue and malaise; Denies: fever(s) or chills Eyes: Denies: change in vision ENMT: Denies: throat pain, odynophagia, mouth pain or dental pain Card: Reports: dyspnea on exertion; Denies: chest pain, palpitations, irregular heart rhythm, swelling of feet/ankles, lightheadedness or syncope Resp: Reports: dyspnea, productive cough, wheezing and chest congestion GI: Denies: abdominal pain, nausea, vomiting or diarrhea : Denies: flank pain, difficulty urinating, dysuria, urinary frequency or urinary urgency Musc: Denies: neck pain or back pain Neuro: Denies: headache(s), numbness in extremities, weakness in extremities, sensory changes, lack of coordination, difficulty walking, frequent falls, dizziness, vertigo, confusion or behavioral changes Psych: Denies: suicidal ideation or homicidal ideation PFS ED PFSH: Medical History Amputation below knee Enrolled in chronic care management GERD (gastroesophageal reflux disease) History of GI bleed Hx pulmonary embolism Hyperlipemia, mixed Type 2 diabetes mellitus with complication, without long-term current use of insulin Surgical History H/O cataract extraction RIGHT Hx of CABG Family History Mother Diabetes Hypertension Other CAD (coronary artery disease) Myocardial infarction Social History Smoking and tobacco status: former smoker Second hand smoke exposure: No Smoking risk assessment/counseling performed?: No Alcohol intake: never Desire information about alcohol rehabilitation?: No Counseling given: No Desire information about substance/drug rehabilitation?: No Counseling given: No Lives independently: Yes Household members: spouse Marital status: Current occupational status: retired History of recent travel: No Current gender identity: Male Course ED course: CT PE protool is negative for PE There are no Covid beds here at [facility], I ramez try [facility] for COVID transfer Vital Signs: Vital signs: Vital Signs Temperature 98.2 F 06/14/20 12:19 Pulse Rate 58 L 06/14/20 20:57 Respiratory Rate 18 06/14/20 20:57 Blood Pressure 104/47 06/14/20 20:30 Pulse Oximetry 93 06/14/20 20:57 MDM - SOB/Dyspnea Lab Data: Labs: Lab Results 06/14/20 06/14/20 06/14/20 Range/Units 12:08 12:43 12:43 WBC (4.0-10.0) 10^3/ uL RBC (4.1-5.3) 10^6/u L Hgb (11.7-16.6) g/dL Hct (42.0-52.0) % MCV (80-94) fL MCH (28.0-34.0) pg MCHC (30.0-36.0) g/dL RDW (12.1-15.1) % Plt Count (130-400) 10^3/c mm MPV (7.4-10.4) fL Neut % (Auto) % Lymph % (Auto) % [place] % (Auto) % Eos % (Auto) % Baso % (Auto) % Neut # (Auto) (1.8-7.7) 10^3/u L Lymph # (Auto) (0.8-4.8) 10^3/u L [place] # (Auto) (0.2-0.9) 10^3/u L Eos # (Auto) (0.0-0.8) 10^3/u L Baso # (Auto) (0.0-0.1) 10^3/u L Nucleated RBC % (a uto) % Nucleated RBCs # /100WBC Fibrinogen 489 (174-498) mg/dL D-Dimer 0.92 H (0-0.59) ug/mIFE U Specimen Type Arterial Sample Site Radial, left ABG pH 7.48 H (7.35-7.45) ABG pCO2 26.7 L (35-45) mmHg ABG pO2 50.1 L (80.0-100.0) mmH g ABG HCO3 19.8 L (22-26) mmol/L ABG Base Excess -2.0 (-2.0-2.0) mmol/ L Erlin Test Pos Hematocrit 50.1 (42-52) % O2 Delivery Device Room air FiO2 21.0 % Research Professional ID Monro Sodium 128 L (136-145) mmol/L Potassium 4.2 (3.5-5.1) mmol/L Chloride 92 L (98-107) mmol/L Carbon Dioxide 23 (22-29) mmol/L Anion Gap 17.2 (5-19) BUN 24 H (8-23) mg/dL Creatinine 0.9 (0.7-1.2) mg/dL GFR Calculation Not Reportable Glucose 157 H (65-115) mg/dL Calculated Osmolal ity 273 L (285-295) mOsm/k g Lactic Acid (0.5-2.2) mmol/L Calcium 8.5 (8.5-10.5) mg/dL Iron (59-158) ug/dL TIBC mcg/dl % Saturation (20-50) % Unsat Iron Binding (112-347) ug/dL Ferritin 671 H (30-400) ng/mL Total Bilirubin 0.6 (0.15-1.2) mg/dL AST 26 (0-40) U/L ALT 16 (0-41) U/L Alkaline Phosphata se 64 (40-130) IU/L Lactate Dehydrogen ase 282 H (135-225) U/L C-Reactive Protein 43.9 H (0.0-4.9) mg/L NT-Pro-B Natriuret Pep (0-450) pg/mL Total Protein 7.1 (6.6-8.7) g/dL Albumin 3.8 (3.5-5.2) g/dL Globulin 3.3 (1.3-4.6) g/dL Procalcitonin (0-0.5) ng/mL TSH (0.27-4.20) uIU/ mL 06/14/20 06/14/20 06/14/20 Range/Units 12:43 12:43 12:45 WBC 6.3 (4.0-10.0) 10^3/ uL RBC 5.41 H (4.1-5.3) 10^6/u L Hgb 15.9 (11.7-16.6) g/dL Hct 47.4 (42.0-52.0) % MCV 87.6 (80-94) fL MCH 29.4 (28.0-34.0) pg MCHC 33.5 (30.0-36.0) g/dL RDW 14.3 (12.1-15.1) % Plt Count 243 (130-400) 10^3/c mm MPV 9.7 (7.4-10.4) fL Neut % (Auto) 82.1 % Lymph % (Auto) 8.3 % [place] % (Auto) 8.9 % Eos % (Auto) 0.0 % Baso % (Auto) 0.2 % Neut # (Auto) 5.18 (1.8-7.7) 10^3/u L Lymph # (Auto) 0.5 L (0.8-4.8) 10^3/u L [place] # (Auto) 0.6 (0.2-0.9) 10^3/u L Eos # (Auto) 0.0 (0.0-0.8) 10^3/u L Baso # (Auto) 0.0 (0.0-0.1) 10^3/u L Nucleated RBC % (a uto) 0 % Nucleated RBCs # 0.0 /100WBC Fibrinogen (174-498) mg/dL D-Dimer (0-0.59) ug/mIFE U Specimen Type Sample Site ABG pH (7.35-7.45) ABG pCO2 (35-45) mmHg ABG pO2 (80.0-100.0) mmH g ABG HCO3 (22-26) mmol/L ABG Base Excess (-2.0-2.0) mmol/ L Erlin Test Hematocrit (42-52) % O2 Delivery Device FiO2 % Research Professional ID Sodium (136-145) mmol/L Potassium (3.5-5.1) mmol/L Chloride (98-107) mmol/L Carbon Dioxide (22-29) mmol/L Anion Gap (5-19) BUN (8-23) mg/dL Creatinine (0.7-1.2) mg/dL GFR Calculation Glucose (65-115) mg/dL Calculated Osmolal ity (285-295) mOsm/k g Lactic Acid 1.8 (0.5-2.2) mmol/L Calcium (8.5-10.5) mg/dL Iron 19 L (59-158) ug/dL TIBC 238 mcg/dl % Saturation 7.9 L (20-50) % Unsat Iron Binding 219 (112-347) ug/dL Ferritin (30-400) ng/mL Total Bilirubin (0.15-1.2) mg/dL AST (0-40) U/L ALT (0-41) U/L Alkaline Phosphata se (40-130) IU/L Lactate Dehydrogen ase (135-225) U/L C-Reactive Protein (0.0-4.9) mg/L NT-Pro-B Natriuret Pep 1717 H (0-450) pg/mL Total Protein (6.6-8.7) g/dL Albumin (3.5-5.2) g/dL Globulin (1.3-4.6) g/dL Procalcitonin 0.09 (0-0.5) ng/mL TSH (0.27-4.20) uIU/ mL 06/14/20 Range/Units 12:45 WBC (4.0-10.0) 10^3/ uL RBC (4.1-5.3) 10^6/u L Hgb (11.7-16.6) g/dL Hct (42.0-52.0) % MCV (80-94) fL MCH (28.0-34.0) pg MCHC (30.0-36.0) g/dL RDW (12.1-15.1) % Plt Count (130-400) 10^3/c mm MPV (7.4-10.4) fL Neut % (Auto) % Lymph % (Auto) % [place] % (Auto) % Eos % (Auto) % Baso % (Auto) % Neut # (Auto) (1.8-7.7) 10^3/u L Lymph # (Auto) (0.8-4.8) 10^3/u L [place] # (Auto) (0.2-0.9) 10^3/u L Eos # (Auto) (0.0-0.8) 10^3/u L Baso # (Auto) (0.0-0.1) 10^3/u L Nucleated RBC % (a uto) % Nucleated RBCs # /100WBC Fibrinogen (174-498) mg/dL D-Dimer (0-0.59) ug/mIFE U Specimen Type Sample Site ABG pH (7.35-7.45) ABG pCO2 (35-45) mmHg ABG pO2 (80.0-100.0) mmH g ABG HCO3 (22-26) mmol/L ABG Base Excess (-2.0-2.0) mmol/ L Erlin Test Hematocrit (42-52) % O2 Delivery Device FiO2 % Research Professional ID Sodium (136-145) mmol/L Potassium (3.5-5.1) mmol/L Chloride (98-107) mmol/L Carbon Dioxide (22-29) mmol/L Anion Gap (5-19) BUN (8-23) mg/dL Creatinine (0.7-1.2) mg/dL GFR Calculation Glucose (65-115) mg/dL Calculated Osmolal ity (285-295) mOsm/k g Lactic Acid (0.5-2.2) mmol/L Calcium (8.5-10.5) mg/dL Iron (59-158) ug/dL TIBC mcg/dl % Saturation (20-50) % Unsat Iron Binding (112-347) ug/dL Ferritin (30-400) ng/mL Total Bilirubin (0.15-1.2) mg/dL AST (0-40) U/L ALT (0-41) U/L Alkaline Phosphata se (40-130) IU/L Lactate Dehydrogen ase (135-225) U/L C-Reactive Protein (0.0-4.9) mg/L NT-Pro-B Natriuret Pep (0-450) pg/mL Total Protein (6.6-8.7) g/dL Albumin (3.5-5.2) g/dL Globulin (1.3-4.6) g/dL Procalcitonin (0-0.5) ng/mL TSH 10.79 H (0.27-4.20) uIU/ mL Discharge Plan Discharge Patient Disposition: Admitted As Inpatient Admit Provider: John Joya Condition: Stable Referrals: Dulce Maria Alonzo FNP [Primary Care Provider] - Discharge Date/Time: 06/14/20 18:26 Sign Out Sign Out Data: Patient Sign Out occurred on 06/14/20 at 17:18. Patient's care was discussed, and care was transferred from to YENIFER Woods. Coding Level of Care Code ED [facility] for Abdulazizg Laith Documented by User: YENIFER Woods 06/14/20 23:16 HPI - SOB/Dyspnea General: Chief Complaint: Shortness of Breath/Dyspnea Stated Complaint: COVID POSITIVE, SOB, COUGH,TEMP Time Seen by Provider: 06/14/20 12:08 [facility] ED 2 PFSH: Medical History Amputation below knee Enrolled in chronic care management GERD (gastroesophageal reflux disease) History of GI bleed Hx pulmonary embolism Hyperlipemia, mixed Type 2 diabetes mellitus with complication, without long-term current use of insulin Surgical History H/O cataract extraction RIGHT Hx of CABG Family History Mother Diabetes Hypertension Other CAD (coronary artery disease) Myocardial infarction Social History Smoking and tobacco status: former smoker Second hand smoke exposure: No Smoking risk assessment/counseling performed?: No Alcohol intake: never Desire information about alcohol rehabilitation?: No Counseling given: No Desire information about substance/drug rehabilitation?: No Counseling given: No Lives independently: Yes Household members: spouse Marital status: Current occupational status: retired History of recent travel: No Current gender identity: Male Course Vital Signs: Vital signs: Vital Signs Temperature 98.2 F 06/14/20 12:19 Pulse Rate 58 L 06/14/20 20:57 Respiratory Rate 18 06/14/20 20:57 Blood Pressure 104/47 06/14/20 20:30 Pulse Oximetry 93 06/14/20 20:57 MDM - SOB/Dyspnea MDM Narrative: Medical decision making narrative: Patient care was signed out to me, but patient was admitted and Jany Nguyễn contacted hospitalist and talked to them about patient case. Patient was admitted into the hospital right as I came on shift. I had no involvement in patient care or plan of care. Lab Data: Attestation: I reviewed the patient's lab results. Labs: Lab Results 06/14/20 06/14/20 06/14/20 Range/Units 12:08 12:43 12:43 WBC (4.0-10.0) 10^3/ uL RBC (4.1-5.3) 10^6/u L Hgb (11.7-16.6) g/dL Hct (42.0-52.0) % MCV (80-94) fL MCH (28.0-34.0) pg MCHC (30.0-36.0) g/dL RDW (12.1-15.1) % Plt Count (130-400) 10^3/c mm MPV (7.4-10.4) fL Neut % (Auto) % Lymph % (Auto) % [place] % (Auto) % Eos % (Auto) % Baso % (Auto) % Neut # (Auto) (1.8-7.7) 10^3/u L Lymph # (Auto) (0.8-4.8) 10^3/u L [place] # (Auto) (0.2-0.9) 10^3/u L Eos # (Auto) (0.0-0.8) 10^3/u L Baso # (Auto) (0.0-0.1) 10^3/u L Nucleated RBC % (a uto) % Nucleated RBCs # /100WBC Fibrinogen 489 (174-498) mg/dL D-Dimer 0.92 H (0-0.59) ug/mIFE U Specimen Type Arterial Sample Site Radial, left ABG pH 7.48 H (7.35-7.45) ABG pCO2 26.7 L (35-45) mmHg ABG pO2 50.1 L (80.0-100.0) mmH g ABG HCO3 19.8 L (22-26) mmol/L ABG Base Excess -2.0 (-2.0-2.0) mmol/ L Erlin Test Pos Hematocrit 50.1 (42-52) % O2 Delivery Device Room air FiO2 21.0 % Research Professional ID Monro Sodium 128 L (136-145) mmol/L Potassium 4.2 (3.5-5.1) mmol/L Chloride 92 L (98-107) mmol/L Carbon Dioxide 23 (22-29) mmol/L Anion Gap 17.2 (5-19) BUN 24 H (8-23) mg/dL Creatinine 0.9 (0.7-1.2) mg/dL GFR Calculation Not Reportable Glucose 157 H (65-115) mg/dL Calculated Osmolal ity 273 L (285-295) mOsm/k g Lactic Acid (0.5-2.2) mmol/L Calcium 8.5 (8.5-10.5) mg/dL Iron (59-158) ug/dL TIBC mcg/dl % Saturation (20-50) % Unsat Iron Binding (112-347) ug/dL Ferritin 671 H (30-400) ng/mL Total Bilirubin 0.6 (0.15-1.2) mg/dL AST 26 (0-40) U/L ALT 16 (0-41) U/L Alkaline Phosphata se 64 (40-130) IU/L Lactate Dehydrogen ase 282 H (135-225) U/L C-Reactive Protein 43.9 H (0.0-4.9) mg/L NT-Pro-B Natriuret Pep (0-450) pg/mL Total Protein 7.1 (6.6-8.7) g/dL Albumin 3.8 (3.5-5.2) g/dL Globulin 3.3 (1.3-4.6) g/dL Procalcitonin (0-0.5) ng/mL TSH (0.27-4.20) uIU/ mL 06/14/20 06/14/20 06/14/20 Range/Units 12:43 12:43 12:45 WBC 6.3 (4.0-10.0) 10^3/ uL RBC 5.41 H (4.1-5.3) 10^6/u L Hgb 15.9 (11.7-16.6) g/dL Hct 47.4 (42.0-52.0) % MCV 87.6 (80-94) fL MCH 29.4 (28.0-34.0) pg MCHC 33.5 (30.0-36.0) g/dL RDW 14.3 (12.1-15.1) % Plt Count 243 (130-400) 10^3/c mm MPV 9.7 (7.4-10.4) fL Neut % (Auto) 82.1 % Lymph % (Auto) 8.3 % [place] % (Auto) 8.9 % Eos % (Auto) 0.0 % Baso % (Auto) 0.2 % Neut # (Auto) 5.18 (1.8-7.7) 10^3/u L Lymph # (Auto) 0.5 L (0.8-4.8) 10^3/u L [place] # (Auto) 0.6 (0.2-0.9) 10^3/u L Eos # (Auto) 0.0 (0.0-0.8) 10^3/u L Baso # (Auto) 0.0 (0.0-0.1) 10^3/u L Nucleated RBC % (a uto) 0 % Nucleated RBCs # 0.0 /100WBC Fibrinogen (174-498) mg/dL D-Dimer (0-0.59) ug/mIFE U Specimen Type Sample Site ABG pH (7.35-7.45) ABG pCO2 (35-45) mmHg ABG pO2 (80.0-100.0) mmH g ABG HCO3 (22-26) mmol/L ABG Base Excess (-2.0-2.0) mmol/ L Erlin Test Hematocrit (42-52) % O2 Delivery Device FiO2 % Research Professional ID Sodium (136-145) mmol/L Potassium (3.5-5.1) mmol/L Chloride (98-107) mmol/L Carbon Dioxide (22-29) mmol/L Anion Gap (5-19) BUN (8-23) mg/dL Creatinine (0.7-1.2) mg/dL GFR Calculation Glucose (65-115) mg/dL Calculated Osmolal ity (285-295) mOsm/k g Lactic Acid 1.8 (0.5-2.2) mmol/L Calcium (8.5-10.5) mg/dL Iron 19 L (59-158) ug/dL TIBC 238 mcg/dl % Saturation 7.9 L (20-50) % Unsat Iron Binding 219 (112-347) ug/dL Ferritin (30-400) ng/mL Total Bilirubin (0.15-1.2) mg/dL AST (0-40) U/L ALT (0-41) U/L Alkaline Phosphata se (40-130) IU/L Lactate Dehydrogen ase (135-225) U/L C-Reactive Protein (0.0-4.9) mg/L NT-Pro-B Natriuret Pep 1717 H (0-450) pg/mL Total Protein (6.6-8.7) g/dL Albumin (3.5-5.2) g/dL Globulin (1.3-4.6) g/dL Procalcitonin 0.09 (0-0.5) ng/mL TSH (0.27-4.20) uIU/ mL 06/14/20 Range/Units 12:45 WBC (4.0-10.0) 10^3/ uL RBC (4.1-5.3) 10^6/u L Hgb (11.7-16.6) g/dL Hct (42.0-52.0) % MCV (80-94) fL MCH (28.0-34.0) pg MCHC (30.0-36.0) g/dL RDW (12.1-15.1) % Plt Count (130-400) 10^3/c mm MPV (7.4-10.4) fL Neut % (Auto) % Lymph % (Auto) % [place] % (Auto) % Eos % (Auto) % Baso % (Auto) % Neut # (Auto) (1.8-7.7) 10^3/u L Lymph # (Auto) (0.8-4.8) 10^3/u L [place] # (Auto) (0.2-0.9) 10^3/u L Eos # (Auto) (0.0-0.8) 10^3/u L Baso # (Auto) (0.0-0.1) 10^3/u L Nucleated RBC % (a uto) % Nucleated RBCs # /100WBC Fibrinogen (174-498) mg/dL D-Dimer (0-0.59) ug/mIFE U Specimen Type Sample Site ABG pH (7.35-7.45) ABG pCO2 (35-45) mmHg ABG pO2 (80.0-100.0) mmH g ABG HCO3 (22-26) mmol/L ABG Base Excess (-2.0-2.0) mmol/ L Erlin Test Hematocrit (42-52) % O2 Delivery Device FiO2 % Research Professional ID Sodium (136-145) mmol/L Potassium (3.5-5.1) mmol/L Chloride (98-107) mmol/L Carbon Dioxide (22-29) mmol/L Anion Gap (5-19) BUN (8-23) mg/dL Creatinine (0.7-1.2) mg/dL GFR Calculation Glucose (65-115) mg/dL Calculated Osmolal ity (285-295) mOsm/k g Lactic Acid (0.5-2.2) mmol/L Calcium (8.5-10.5) mg/dL Iron (59-158) ug/dL TIBC mcg/dl % Saturation (20-50) % Unsat Iron Binding (112-347) ug/dL Ferritin (30-400) ng/mL Total Bilirubin (0.15-1.2) mg/dL AST (0-40) U/L ALT (0-41) U/L Alkaline Phosphata se (40-130) IU/L Lactate Dehydrogen ase (135-225) U/L C-Reactive Protein (0.0-4.9) mg/L NT-Pro-B Natriuret Pep (0-450) pg/mL Total Protein (6.6-8.7) g/dL Albumin (3.5-5.2) g/dL Globulin (1.3-4.6) g/dL Procalcitonin (0-0.5) ng/mL TSH 10.79 H (0.27-4.20) uIU/ mL Discharge Plan Discharge Patient Disposition: Admitted As Inpatient Admit Provider: John Joya Condition: Stable Referrals: Dulce Maria Alonzo FNP [Primary Care Provider] - Discharge Date/Time: 06/14/20 18:26 Sign Out Sign Out Data: Patient Sign Out occurred on 06/14/20 at 17:18. Patient's care was discussed, and care was transferred from to YENIFER Woods. Coding Level of Care Code ED [facility] Guide for Oniel Ozuna
--- NOTE | 2020-06-14 13:27 | CTR_ITS ---
PROCEDURE INFORMATION: Exam: CT Angiography Chest With Contrast Exam date and time: 06/14/2020 3:18 PM Age: 80 years old Clinical indication: Other: Covid; Prior surgery; Surgery date: 6+ months; Surgery type: Heart; Additional info: Elevated d dimer HX pe SOB covid + TECHNIQUE: Imaging protocol: Computed tomographic angiography of the chest with intravenous contrast. 3D rendering (Not supervised by radiologist): MIP and/or 3D reconstructed images were created by the technologist. Radiation optimization: All CT scans at this facility use at least one of these dose optimization techniques: automated exposure control; mA and/or kV adjustment per patient size (includes targeted exams where dose is matched to clinical indication); or iterative reconstruction. Contrast material: OMNI 350; Contrast volume: 90 ml; Contrast route: INTRAVENOUS (IV); COMPARISON: CTA Chest-Pulmonary Emb [id number] 04/27/2018 6:14 PM RADIATION DOSE METRICS: Total DLP (mGy-cm): 596.1 FINDINGS: Pulmonary arteries: Normal. No pulmonary emboli. Aorta: Calcification of the abdominal aorta and/or iliac arteries consistent with atherosclerotic vessel disease. Great vessels off aortic arch: Calcification of the thoracic aorta and/or great vessels consistent with atherosclerotic vessel disease. Lungs: Stable moderate COPD . Continued moderate bibasilar pulmonary opacities suggesting residual or recurrent pneumonia versus pulmonary fibrosis. Pleural space: Unremarkable. No pneumothorax. No pleural effusion. Heart: Stable CABG procedure. Lymph nodes: Unremarkable. No enlarged lymph nodes. Gallbladder and bile ducts: Stable multiple tiny calcified gallstones. Adrenals: Stable left adrenal hyperplasia. Bones/joints: Mild thoracic spondylosis. Soft tissues: Unremarkable. Other findings: Examination is limited secondary to motion artifact. CT/CT angio chest PE protcl [id number] IMPRESSION: 1. Stable CABG procedure. 2. Stable moderate COPD . 3. Continued moderate bibasilar pulmonary opacities suggesting residual or recurrent pneumonia versus pulmonary fibrosis. 4. No pulmonary embolus or aortic dissection. Radiation Dose CTDIVOL = (mGy): DLP = 596.1 (mGy-cm)
[2020-06-14] MEDS: acetaminophen 500 mg Tablet 1000 MG PO (13:40)
[2020-06-14] MEDS: sodium chloride 0.9% 500 ML IV (14:55)
--- NOTE | 2020-06-14 15:22 | PC.NURSE ---
pt resting in bed. pt began to desaturate on RA to 88%. pt is asleep. pt repositioned in bed and placed on 3L O2 NC with SpO2 improving to 95%. Provider notified.
[2020-06-14] MEDS: iohexol 350 mg/mL 100 mL Btl IV (15:52)
[2020-06-14] MEDS: cefTRIAXone 1,000 MG in sodium chloride 0.9% (plus) 50 ML 100 MG IV (17:33)
--- NOTE | 2020-06-14 17:48 | PC.NURSE ---
pt report called to Kashmir RN in SBAR format.
--- NOTE | 2020-06-14 18:04 | PM.HP ---
Providers/Chief Complaint Admitting Physician: John Joya MD Primary Care Provider: ANNE MARIE Beverly Chief Complaint: COVID POSITIVE, SOB, COUGH,TEMP History of Present Illness Mauro Espino is a 80 year old male with past medical history of hypertension, hyperlipidemia, type 2 diabetes mellitus, right below-knee amputation, COPD not on home oxygen, chronic smoker, severe peripheral arterial disease, chronic tobacco abuse with recurrent claudication with recent peripheral angiogram showing severe left SFA occlusion proximal to distal, popliteal artery disease for which he was recently referred to [place] vascular surgeon for possible bypass surgery, history of CABG, valve replacement. Unfortunately no medical records available regarding the details of valve replacement. As per patient's and patient he was exposed to COVID-19 around 11 to 12 days ago and was tested positive a week ago. He has been eating more more tired with occasional episodes of diarrhea, more and more difficulty in breathing with cough and expectoration bringing up yellowish colored phlegm becoming more more unsteady on his feet because of which he was brought to the ER. X-ray in the ER was found to have a saturation down to mid 80s on room air for which he required 3 L nasal cannula to bring a saturation of 92%. Blood work in the ER showed a white, 6.3, hemoglobin of 15.9, d-dimer of 0.92, ABG showing PO2 of 50.7 on room air, sodium of 128, chloride of 92, creatinine of 0.9, lactic acid of 1.8, ferritin of 671, LDH of 282, CRP of 43.9. CTA chest was done which showed stable CABG, moderate COPD, moderate bibasilar pulmonary opacities. Review of Systems General: Reports: 10 or more systems reviewed and unremarkable except in HPI and below Const: Denies: fever(s), chills, body aches, change in appetite, change in weight, malaise, night sweats, diaphoresis, change in sleep pattern, daytime sleepiness or snoring Eyes: Denies: change in vision, blurry vision, photophobia, eye discomfort or eye discharge ENMT: Denies: throat pain, enlarged tonsils, hoarseness, mouth pain, oral sores, dry mouth, tinnitus, nasal congestion or post nasal drip Card: Denies: chest pain, palpitations, irregular heart rhythm, edema, swelling of feet/ankles, lightheadedness, syncope, pre-syncope, dyspnea on exertion, orthopnea, leg pain with exertion or acrocyanosis Resp: Denies: dyspnea, productive cough, non-productive cough, wheezing, stridor, pain on inspiration, change in phlegm color, hemoptysis or chest congestion GI: Denies: abdominal pain, nausea, vomiting, hematemesis, coffee ground emesis, dysphagia, heartburn, diarrhea, constipation, bloating, GI cramping, change in bowel habits, pain on defecation, hematochezia or melena : Denies: flank pain, difficulty urinating, dysuria, urinary frequency, urinary urgency, urinary hesitancy, urinary dribbling, difficulty starting urination, change in urine stream, nocturia or hematuria Musc: Denies: neck pain, back pain, extremity pain, joint pain, joint swelling, joint redness, joint stiffness or limited range of motion Neuro: Denies: headache(s), numbness in extremities, weakness in extremities, sensory changes, lack of coordination, difficulty walking, frequent falls, dizziness, vertigo, confusion, Slurred speech present, difficulty communicating thoughts or seizure-like activity Psych: Denies: anxiety, depression, mood swings, panic attacks, hopelessness or irritability Endo: Denies: polyuria, polydipsia, tired all the time, cold intolerance, excessive sweating, flushing or heat intolerance Jeff/Lymph: Denies: easy bruising or easy bleeding All/Imm: Denies: tongue swelling, facial swelling or acute wheezing Medications/Allergies Home Medications Medication Instructions Recorded Confirmed Last Taken Type aspirin 81 mg tablet,delayed 81 mg PO DAILY tab 09/08/19 06/14/20 06/14/20 History release ramipril 2.5 mg capsule 2.5 mg PO DAILY cap 09/08/19 06/14/20 06/14/20 History Diabetic Shoes #1 ea 11/21/19 06/14/20 Unknown Rx alendronate 70 mg tablet 70 mg PO .Q 7 DAYS #12 tab 01/29/20 06/14/20 03/03/20 06:00 Rx tamsulosin 0.4 mg capsule 0.4 mg PO DAILY #90 cap 02/16/20 06/14/20 06/14/20 Rx glipizide 5 mg tablet See Rx Instructions .ROUTE 03/21/20 06/14/20 06/14/20 Rx .COMPLEX #45 tab lancets 30 gauge See Rx Instructions .ROUTE 03/21/20 06/14/20 Unknown Rx .COMPLEX #100 each blood sugar diagnostic #10 each 03/25/20 06/14/20 Unknown History gabapentin 300 mg capsule 300 mg PO TID #270 cap 04/01/20 06/14/20 06/14/20 Rx dexamethasone 6 mg PO DAILY #5 tab 06/07/20 06/14/20 06/14/20 Rx omeprazole 20 mg PO BID 06/14/20 06/14/20 06/14/20 History simvastatin 40 mg PO DAILY 06/14/20 06/14/20 06/14/20 History Allergies Allergy/AdvReac Type Severity Reaction Status Date / Time No Known Allergies Allergy Verified 06/14/20 13:46 PFSH Acute PFSH: Medical History (Updated 06/14/20 @ 18:14 by John Joya MD) Amputation below knee Enrolled in chronic care management GERD (gastroesophageal reflux disease) History of GI bleed Hx pulmonary embolism Hyperlipemia, mixed Type 2 diabetes mellitus with complication, without long-term current use of insulin Surgical History (Updated 06/14/20 @ 18:09 by John Joya MD) H/O cataract extraction RIGHT Hx of CABG Family History Mother Diabetes Hypertension Other CAD (coronary artery disease) Myocardial infarction Social History Smoking and tobacco status: former smoker Second hand smoke exposure: No Smoking risk assessment/counseling performed?: No Alcohol intake: never Desire information about alcohol rehabilitation?: No Counseling given: No Desire information about substance/drug rehabilitation?: No Counseling given: No Lives independently: Yes Household members: spouse Marital status: Current occupational status: retired History of recent travel: No Current gender identity: Male Vitals/I&O/Wt Last Vital Signs Temp 98.2 F 06/14/20 12:19 Pulse 68 06/14/20 17:40 Resp 18 06/14/20 17:40 BP 117/68 06/14/20 17:40 Pulse Ox 93 06/14/20 17:40 Weight last 48 hrs Weight 81.647 kg Physical Exam Narrative: EXAM NARRATIVE: General: No acute distress, AO x3, dehydrated, on 3 L nasal cannula HEENT: PERRLA, pupils bilaterally equal and reactive Chest: Bilateral bronchial breath sounds, rhonchi all over the lung bassett, coarse crackles in right middle zone CVS: S1-S2 regular, no murmurs, no tachycardia, no gallops, no rubs Abdomen: Soft, nontender, no organomegaly, bowel sounds present Neuro: No focal deficits, no facial deformity, AO x3, power 5/5 in all limbs Extremities: Below the knee right amputation Data : 06/14/20 12:43 06/14/20 12:43 A&P Assessment and plan (1) Hypoxia: Status: Acute (2) Pneumonia due to COVID-19 virus: Status: Acute (3) Peripheral arterial disease: Status: Acute (4) Type 2 diabetes mellitus with complication, without long-term current use of insulin: Status: Acute (5) Hx pulmonary embolism: Status: Acute (6) Hx of CABG: Status: Acute (7) History of GI bleed: Status: Acute Additional A&P Information Hypoxia due to COVID-19 pneumonia: At least moderate disease at requiring 3 L of oxygen supplementation to keep saturation over 90%. Start patient on antiviral treatment withremdesevir. 5-day course. Dexamethasone 6 mg IV daily. Advair, Spiriva. Vitamin C, zinc, Tessalon Perles. Oxygen supplementation keeping saturation over 90%. Patient's d-dimer is elevated but CTA negative for pulmonary embolism. Patient has a history of GI bleed for which he is not on anticoagulation at present even though he has a history of pulmonary embolism. For now we will continue to monitor d-dimer. If patient's d-dimer is getting elevated and patient is requiring more oxygen supplementation will start him on anticoagulation at that time. Check procalcitonin, proBNP, bacterial antigen, urine Legionella, sputum culture, blood culture, MRSA swab. For now start patient on azithromycin 500 mg oral daily. History of CABG/history of pulmonary embolism/history of peripheral arterial disease: Check echocardiogram Continue home dose of aspirin, statin. Check A1c, lipid panel. Hyponatremia: Could be the cause of weakness as well along with viral prodrome. Patient looking dehydrated for now. We will check urine lites. Normal saline at 75 cc/h. History of GI bleed: Hemoglobin stable for now. We will check iron panel. Protonix for PUD prophylaxis. Continue to monitor hemoglobin daily. Hypertension: Goal blood pressure less than 140/90 mmhg. C/w home dose of ramipril. We will continue to monitor blood pressures. Type 2 diabetes mellitus: Insulin sliding scale at moderate dose. Carb consistent cardiac diet. We will continue to monitor. Full code. Protonix for PUD prophylaxis. Lovenox for DVT prophylaxis. Attestations Medical Necessity Statement*: More than 2 midnights for hypoxia due to COVID-19 pneumonia, hyponatremia, history of pulmonary embolism, type 2 diabetes mellitus. Admit to viral ICU. Time Spent in Patient Care: Greater than 35 minutes (>than 50% of time spent in counselling and/or direct pt care on unit). Coding Level of Care Code Acute [employer] [facility] Diagnoses Hypoxia R09.02 Pneumonia due to COVID-19 virus U07.1; J12.89 Peripheral arterial disease I73.9 Type 2 diabetes mellitus with complication, without long-term current use of insulin E11.8 Hx pulmonary embolism Z86.711 Hx of CABG Z95.1 History of GI bleed Z87.19
[2020-06-14 18:35] LABS: Add Urine Culture? No; Bacteria Urine TRACE /hpf; Bilirubin Urine Neg (Negative); Blood Urine Neg (Negative); Glucose Urine UA Norm (Normal); Ketones Urine Negative (Negative); Leukocyte Esterase Urine Negative (Negative); Nitrate Urine Negative (Negative); Protein Urine 2+ (Negative); Renal Epithelial Cells Urine N /hpf; Specific Gravity, Urine 1.005 (1.005-1.030); Urine Appearance Clear (CLEAR); Urine Color Yellow (Yellow); Urobilinogen Urine 4 mg/dL (Negative); pH Urine 5 (5-7)
[2020-06-14 18:55] LABS: NT Pro B Type Natriuretic Pept 1717 pg/mL (0-450); Procalcitonin 0.09 ng/mL (0-0.5)
[2020-06-14 18:56] LABS: Thyroid Stimulating Hormone 10.79 uIU/mL (0.27-4.20)
[2020-06-14 19:06] LABS: Glucose Point of Care 81 mg/dL (70-110)
[2020-06-14 19:06] LABS: Iron 19 ug/dL (59-158); Percent Saturation 7.9 % (20-50); Total Iron Binding Capacity 238 mcg/dl; Unsaturated Iron Binding 219 ug/dL (112-347)
--- NOTE | 2020-06-14 19:14 | PC.NURSE ---
RECEIVED FROM ER. PUT IN BED, LABS DRAWN. ORIENTED TO UNIT
[2020-06-14 19:17] LABS: Potassium, Radom Urine 28 mmol/L; Urine Random Chloride 24 mmol/L; Urine Random Sodium 43 mmol/L
[2020-06-14] MEDS: sodium chloride 0.9% 1,000 ML 75 ML IV (20:05)
[2020-06-14 20:19] LABS: Influenza A by IFA Negative (Negative); Influenza B by IFA Negative (Negative)
[2020-06-14] MEDS: azithromycin 500 MG in sodium chloride 0.9% 250 ML 250 MG IV (21:02)
[2020-06-14] MEDS: dexamethasone 10 mg/mL INJ IVP (21:02)
[2020-06-14 21:37] LABS: Glucose Point of Care 118 mg/dL (70-110)
[2020-06-14] MEDS: gabapentin 300 mg Capsule PO (21:58)
[2020-06-14] MEDS: benzonatate 100 mg Capsule PO (21:58)
[2020-06-15] VITALS (49 sets, daily range): BP systolic 94–152; BP diastolic 43–70; PULSE 55–81; RESP 12–32; TEMP 36.7–36.8; O2SAT 89–98
[2020-06-15 04:27] LABS: Hematocrit 43.8 % (42.0-52.0); Hemoglobin 14.5 g/dL (11.7-16.6); Lymphocytes # 0.4 10^3/uL (0.8-4.8); Mean Corpuscular HGB Conc 33.1 g/dL (30.0-36.0); Mean Corpuscular Hemoglobin 29.9 pg (28.0-34.0); Mean Corpuscular Volume 90.3 fL (80-94); Mean Platelet Volume 9.6 fL (7.4-10.4); Monocytes # 0.4 10^3/uL (0.2-0.9); Neutrophils # 3.58 10^3/uL (1.8-7.7); Neutrophils % 81.3 %; Nucleated Red Blood Cells % 0 %; Platelet Count 220 10^3/cmm (130-400); Red Blood Count 4.85 10^6/uL (4.1-5.3); Red Cell Distribution Width 14.5 % (12.1-15.1); White Blood Count 4.4 10^3/uL (4.0-10.0)
[2020-06-15 04:57] LABS: Alanine Aminotransferase 12 U/L (0-41); Albumin Level 3.4 g/dL (3.5-5.2); Alkaline Phosphatase 61 IU/L (40-130); Blood Urea Nitrogen 21 mg/dL (8-23); Calcium 7.7 mg/dL (8.5-10.5); Carbon Dioxide 19 mmol/L (22-29); Chloride 99 mmol/L (98-107); Creatinine Clr Calc Pharmacy 85.2702; Globulin 2.4 g/dL (1.3-4.6); Glucose 111 mg/dL (65-115); Osmolality Calculated 272 mOsm/kg (285-295); Sodium 129 mmol/L (136-145); Total Bilirubin 0.5 mg/dL (0.15-1.2); Total Protein 5.8 g/dL (6.6-8.7)
[2020-06-15 04:58] LABS: Anion Gap 15.9 (5-19); Aspartate Amino Transferase 25 U/L (0-40); Potassium 4.9 mmol/L (3.5-5.1)
[2020-06-15 05:13] LABS: D Dimer 0.82 ug/mIFEU (0-0.59)
[2020-06-15 05:20] LABS: Fibrinogen 420 mg/dL (174-498)
[2020-06-15 05:28] LABS: Estmated Average Glucose 131; Hemoglobin A1C 6.2 % (4.0-6.0)
[2020-06-15 05:51] LABS: Magnesium 2.3 mg/dL (1.7-2.3); Phosphorus 3.4 mg/dL (2.5-4.5)
[2020-06-15 05:58] LABS: C Reactive Protein 75.3 mg/L (0.0-4.9); Chol HDL Ratio 3.54 mg/dL (1.0-5.00); Cholesterol 138 mg/dL (0-200); Creatine Phosphokinase 69 U/L (39-308); Ferritin 621 ng/mL (30-400); HDL Cholesterol 39 mg/dL (60-100); LDL Cholesterol Calculated 81 mg/dL (50-129); Lactate Dehydrogenase 282 U/L (135-225); NT Pro B Type Natriuretic Pept 1426 pg/mL (0-450); Triglycerides 88 mg/dL (0-150); VLDL Cholestrol Calculation 18 mg/dL (0-30)
--- NOTE | 2020-06-15 06:00 | XRR_ITS ---
PROCEDURE INFORMATION: Exam: XR Chest, 1 View Exam date and time: 06/15/2020 6:37 AM Age: 80 years old Clinical indication: Shortness of breath; Additional info: Covid TECHNIQUE: Imaging protocol: XR of the chest Views: 1 view. COMPARISON: CTA chest June 14, 2020. CR XR chest 1V portable [id number] 06/14/2020 12:39 PM FINDINGS: Lungs: Hyperinflated emphysematous lungs. No significant change increased interstitial markings with ground-glass opacity left along the left diaphragm and lower thorax. No lobar consolidation. Pleural space: Unremarkable. No evidence of pleural effusion or pneumothorax. Heart/Mediastinum: No cardiomegaly. Evidence of CABG. Bones/joints: Median sternotomy wires. XR/XR chest 1V portable [id number] IMPRESSION: No significant interval change. Advanced emphysema with unchanged nonspecific interstitial thickening and mild ground-glass opacities left lung base. No lobar consolidation.
[2020-06-15 07:33] LABS: Glucose Point of Care 91 mg/dL (70-110)
--- NOTE | 2020-06-15 07:49 | PC.NURSE ---
Report given to CHUY Leung in SBAR format
[2020-06-15] MEDS: zinc gluconate 50 mg Tablet PO (09:20)
[2020-06-15] MEDS: sodium chloride 0.9% 1,000 ML 75 ML IV (09:20)
[2020-06-15] MEDS: gabapentin 300 mg Capsule PO ×3 (09:20→21:00)
[2020-06-15] MEDS: benzonatate 100 mg Capsule PO ×3 (09:20→21:00)
[2020-06-15] MEDS: aspirin 81 mg EC Tablet PO (09:21)
[2020-06-15] MEDS: ascorbic acid 500 mg Tablet PO (09:21)
[2020-06-15] MEDS: lisinopril 10 mg Tablet PO (09:21)
[2020-06-15] MEDS: pantoprazole DR 40 mg Tablet PO (09:21)
[2020-06-15] MEDS: atorvastatin 40 mg Tablet 20 MG PO (09:21)
[2020-06-15] MEDS: ferrous gluconate 324 mg Tablet PO ×2 (09:21→15:57)
[2020-06-15] MEDS: tamsulosin 0.4 mg Capsule PO (09:21)
[2020-06-15] MEDS: dexamethasone 4 mg/mL INJ 6 MG IVP (09:21)
--- NOTE | 2020-06-15 09:41 | ECG_ITS ---
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 Measurements Intervals [place] Rate: 57 P: 57 RI: 157 QRS: -60 QRSD: 124 T: -48 QT: 386 QTc: 376 Interpretive Statements SINUS BRADYCARDIA MARKED LEFT AXIS DEVIATION [QRS AXIS < -30] POSSIBLE RIGHT VENTRICULAR CONDUCTION DELAY [RSR (QR) IN V1/V2] SEPTAL MYOCARDIAL INFARCTION [40+ ms Q WAVE IN V1/V2], PROBABLY OLD Compared to ECG 06/14/2020 12:30:22 Left-axis deviation now present Myocardial infarct finding now present Ventricular-paced complex(es) or rhythm no longer present Electronically Signed On 06-22-2020 18:13:04 CDT by Yareli Pollard M.D. [email or web address]
--- NOTE | 2020-06-15 09:54 | PC.NURSE ---
, Pat, called and updated on patient's condition (doing better). No further questions.
[2020-06-15 10:38] LABS: Free T4 Free Thyroxine 0.91 ng/dL (0.82-1.77); T3 Free 1.5 PG/ML (2.0-4.4)
--- NOTE | 2020-06-15 11:20 | PC.NURSE ---
Report and handoff to CHUY Garcia.
[2020-06-15 11:48] LABS: Glucose Point of Care 233 mg/dL (70-110)
--- NOTE | 2020-06-15 14:31 | PM.PN ---
Subjective Subjective: Interval history: No acute events overnight. He has remained stable. On examination lying comfortably in bed. Saturating more than 90% on 2 to 3 L oxygen supplementation. Hemodynamically has remained stable. Has had an episode with heart rate going into high 50s overnight on telemetry. Afebrile. He continues to work well with incentive spirometry and flutter valve. Discussed in detail regarding prone and semiprone positioning today. Vitals/I&O/Wt Last Vital Signs Temp 98.0 F 06/15/20 09:45 Pulse 64 06/15/20 11:50 Resp 17 06/15/20 11:50 BP 112/60 06/15/20 11:50 Pulse Ox 93 06/15/20 11:50 06/14/20 06/15/20 06/15/20 22:59 06:59 14:59 Intake Total 300 / 300 250 / 550 993.75 / 993.75 Output Total 620 / 620 Balance 300 / 300 -370 / -70 993.75 / 993.75 Weight last 48 hrs Weight 62.369 kg Weight 81.647 kg Physical Exam Narrative: EXAM NARRATIVE: General: No acute distress, AO x3, dehydrated, on 3 L nasal cannula HEENT: PERRLA, pupils bilaterally equal and reactive Chest: Bilateral bronchial breath sounds, rhonchi all over the lung bassett, coarse crackles in right middle zone CVS: S1-S2 regular, soft ejection systolic murmur present at the aortic area, no tachycardia, no gallops, no rubs Abdomen: Soft, nontender, no organomegaly, bowel sounds present Neuro: No focal deficits, no facial deformity, AO x3, power 5/5 in all limbs Extremities: Below the knee right amputation Data : 06/15/20 04:00 06/15/20 04:00 Micro: Microbiology 06/14/20 18:50 MRSA Culture - Final Nose 06/14/20 18:50 Blood Culture - Preliminary Blood SPECIMEN COLLECTED 06/14/20 18:50 Blood Culture - Preliminary Blood SPECIMEN COLLECTED 06/14/20 17:45 Bacterial Antigens - Final Urine Kidney 06/14/20 17:45 Legionella Urinary Antigen - Final Urine,Voided A&P Assessment and plan (1) Hypoxia: Status: Acute (2) Pneumonia due to COVID-19 virus: Status: Acute (3) Peripheral arterial disease: Status: Acute (4) Type 2 diabetes mellitus with complication, without long-term current use of insulin: Status: Acute (5) Hx pulmonary embolism: Status: Acute (6) Hx of CABG: Status: Acute (7) History of GI bleed: Status: Acute (8) Hypothyroidism: Status: Acute Additional A&P Information Hypoxia due to COVID-19 pneumonia: At least moderate disease at requiring 3 L of oxygen supplementation to keep saturation over 90%. Continue antiviral treatment with remdesevir. Day 2/5 Dexamethasone 6 mg IV daily. Advair, Spiriva. Vitamin C, zinc, Tessalon Perles. Will get EKG to monitor QTC because of bradycardia. Oxygen supplementation keeping saturation over 90%. Patient's d-dimer is elevated but CTA negative for pulmonary embolism. Patient has a history of GI bleed for which he is not on anticoagulation at present even though he has a history of pulmonary embolism. D-dimer mildly elevated today. Patient is not requiring more oxygen than yesterday so for now we will continue to monitor. Chances of bacterial pneumonia are low. Procalcitonin negative, MRSA and Legionella negative along with bacterial antigen. For now continue with azithromycin 500 mg daily. Day 2 today. History of CABG/history of pulmonary embolism/history of peripheral arterial disease: Echocardiogram results appreciated with EF of 35 to 40% with global LV hypokinesia, mild pulmonary hypertension with RVSP of 25 mmHg. Continue home dose of aspirin, statin. A1c 6.2, lipid panel results appreciated. Hypothyroidism: New diagnosis. TSH more than 10. We will check free T3, free T4. As patient has cardiac history we will start him on levothyroxine 25 mcg for now. We will change the dosage as per Free T3-T4's evaluations. Hyponatremia: Could be the cause of weakness as well along with viral prodrome. Urine sodium 43. Stop IV fluids because of low EF. Start patient on oral salt tablets. We will continue to monitor. History of GI bleed: Hemoglobin stable for now. We will check iron panel. Protonix for PUD prophylaxis. Continue to monitor hemoglobin daily. Hypertension: Goal blood pressure less than 140/90 mmhg. C/w home dose of ramipril. We will continue to monitor blood pressures. Type 2 diabetes mellitus: Insulin sliding scale at moderate dose. Carb consistent cardiac diet. We will continue to monitor. Full code. Protonix for PUD prophylaxis. Lovenox for DVT prophylaxis. Attestations Medical Necessity Statement*: Acute hypoxia because of COVID-19 pneumonia Time Spent in Patient Care: Greater than 35 minutes (>than 50% of time spent in counselling and/or direct pt care on unit). Coding Level of Care Code Acute [employer] Fwd Diagnoses Hypoxia R09.02 Pneumonia due to COVID-19 virus U07.1; J12.89 Peripheral arterial disease I73.9 Type 2 diabetes mellitus with complication, without long-term current use of insulin E11.8 Hx pulmonary embolism Z86.711 Hx of CABG Z95.1 History of GI bleed Z87.19 Hypothyroidism E03.9
[2020-06-15] MEDS: sodium chloride 1 gm Tablet PO ×2 (15:58→17:52)
[2020-06-15 16:52] LABS: Glucose Point of Care 91 mg/dL (70-110)
--- NOTE | 2020-06-15 17:35 | USCV_ITS ---
Mauro Espino Age: 80 Gender: M : 1940 Exam Date: 06/15/2020 10:36 Ordering Phys: John Joya MD Technologist: Coni Beard Exam Location: [facility] [place] Indication: History of pulmonary hypertension and diastolic dysfunction BP: 115 / 70 HR: 64 Rhythm: Atrial fibrillation Technical Quality: Technically difficult study MEASUREMENTS (Male / Female) Normal Values 2D ECHO LV Diastolic Diameter PLAX 5.4 cm 4.2 - 5.9 / 3.9 - 5.3 cm LV Systolic Diameter PLAX 4.3 cm LV Chamber Size 3.9 cm IVS Diastolic Thickness 0.7 cm 0.6 - 1.0 / 0.6 - 0.9 cm IVS Systolic Thickness 0.9 cm LVPW Diastolic Thickness 0.6 cm 0.6 - 1.0 / 0.6 - 0.9 cm LVPW Systolic Thickness 0.9 cm RV Chamber Size 3.8 cm LVOT Diameter 2.2 cm LV Ejection Fraction 2D Teich 42.1 % LV Ejection Fraction MOD 2C 64.8 % LV Ejection Fraction 2C AL 65.4 % LA Diameter 2.9 cm LA Width 3.3 cm LA Height 4.4 cm RA Width 3.3 cm RA Height 4.0 cm Aorta at Sinotubular Diameter 3.0 cm M-MODE LV Diastolic Diameter MM 6.7 cm 4.2 - 5.9 / 3.9 - 5.3 cm LV Systolic Diameter MM 5.1 cm LV Ejection Fraction MM Teich 46.3 % IVS Diastolic Thickness MM 1.0 cm 0.6 - 1.0 / 0.6 - 0.9 cm IVS Systolic Thickness MM 1.1 cm LVPW Diastolic Thickness MM 1.1 cm 0.6 - 1.0 / 0.6 - 0.9 cm LVPW Systolic Thickness MM 1.2 cm RV Diastolic Diameter MM 1.3 cm Aortic Annulus Diameter 3.9 cm LA Ao Ratio MM 0.8 MV E Point Septal Separation 3.2 cm DOPPLER AV Peak Velocity 136.0 cm/s LVOT Peak Velocity 86.0 cm/s AV Area Cont Eq vti 2.3 cm squared AV Area Cont Eq pk 2.4 cm squared MV Area PHT 4.8 cm squared MV E' Velocity 29.5 cm/s Mitral E to MV E' Ratio 6.5 Mitral E to LV E' Lateral Ratio 5.1 Mitral E to LV E' Septal Ratio 9.0 TR Peak Velocity 196.0 cm/s TR Peak Gradient 15.4 mmHg TV Peak E Velocity 36.0 cm/s Right Atrial Pressure 3.0 mmHg Pulmonary Artery Systolic Pressu 18.4 mmHg PV Peak Velocity 75.0 cm/s RV Acceleration Time 0.1 s RV Ejection Time 0.3 s RV AcT/ET 0.4 FINDINGS Left Ventricle Normal left ventricular size and wall thickness. LV systolic function is moderately reduced with EF of 35 to 40%. Moderate global hypokinesis is present. Septal motion is consistent with prior cardiac surgery. Diastolic function is abnormal. Right Ventricle The right ventricle is normal in size and function. Right Atrium The right atrium is normal in size. Left Atrium The left atrium is normal in size. Mitral Valve Structurally normal mitral valve without significant stenosis or prolapse. There is trace mitral regurgitation. Aortic Valve Not well visualized however no significant stenosis. There is no aortic regurgitation. Tricuspid Valve Structurally normal tricuspid valve without significant stenosis. Trace tricuspid regurgitation.. RVSP is 20 to 25 mmHg. No pulmonary hypertension is noted. Pulmonic Valve Structurally normal pulmonic valve without significant stenosis. There is no pulmonic regurgitation. Pericardium Normal pericardium without effusion. Aorta Normal ascending aorta dimension. CONCLUSIONS LV systolic function is moderately reduced with EF of 35 to 40%. Diastolic function is abnormal. No pulmonary hypertension is noted. No comparison studies available. Lyle Lovell MD (Electronically Signed) Final Date: 15 June 2020 12:47 S
[2020-06-15 20:30] LABS: Glucose Point of Care 106 mg/dL (70-110)
[2020-06-16] VITALS (12 sets, daily range): BP systolic 89–122; BP diastolic 30–65; PULSE 63–78; RESP 16–28; O2SAT 91–99
[2020-06-16 06:22] LABS: Eosinophils % 0.4 %; Hematocrit 44.4 % (42.0-52.0); Hemoglobin 14.6 g/dL (11.7-16.6); Lymphocytes # 0.6 10^3/uL (0.8-4.8); Lymphocytes % 12.2 %; Mean Corpuscular HGB Conc 32.9 g/dL (30.0-36.0); Mean Corpuscular Hemoglobin 29.6 pg (28.0-34.0); Mean Corpuscular Volume 90.1 fL (80-94); Mean Platelet Volume 10.4 fL (7.4-10.4); Monocytes # 0.5 10^3/uL (0.2-0.9); Monocytes % 9.5 %; Neutrophils # 4.07 10^3/uL (1.8-7.7); Neutrophils % 77.3 %; Nucleated Red Blood Cells % 0 %; Platelet Count 226 10^3/cmm (130-400); Red Blood Count 4.93 10^6/uL (4.1-5.3); Red Cell Distribution Width 14.5 % (12.1-15.1); White Blood Count 5.3 10^3/uL (4.0-10.0)
[2020-06-16 07:01] LABS: Fibrinogen 500 mg/dL (174-498)
[2020-06-16 07:04] LABS: D Dimer 0.88 ug/mIFEU (0-0.59)
[2020-06-16 07:09] LABS: Alanine Aminotransferase 13 U/L (0-41); Albumin Level 3.5 g/dL (3.5-5.2); Alkaline Phosphatase 62 IU/L (40-130); Aspartate Amino Transferase 25 U/L (0-40); Blood Urea Nitrogen 21 mg/dL (8-23); Calcium 7.9 mg/dL (8.5-10.5); Carbon Dioxide 21 mmol/L (22-29); Chloride 98 mmol/L (98-107); Globulin 2.2 g/dL (1.3-4.6); Glucose 80 mg/dL (65-115); Osmolality Calculated 276 mOsm/kg (285-295); Sodium 132 mmol/L (136-145); Total Bilirubin 0.4 mg/dL (0.15-1.2); Total Protein 5.7 g/dL (6.6-8.7)
[2020-06-16 07:10] LABS: C Reactive Protein 63.3 mg/L (0.0-4.9); Creatine Phosphokinase 56 U/L (39-308); Ferritin 697 ng/mL (30-400); Lactate Dehydrogenase 317 U/L (135-225); NT Pro B Type Natriuretic Pept 1484 pg/mL (0-450)
[2020-06-16 07:15] LABS: Anion Gap 17.4 (5-19); Potassium 4.4 mmol/L (3.5-5.1)
[2020-06-16 08:06] LABS: Glucose Point of Care 92 mg/dL (70-110)
[2020-06-16] MEDS: sodium chloride 1 gm Tablet PO ×2 (09:23→17:50)
[2020-06-16] MEDS: levothyroxine 50 mcg Tablet PO (09:23)
[2020-06-16] MEDS: ascorbic acid 500 mg Tablet PO (09:26)
[2020-06-16] MEDS: atorvastatin 40 mg Tablet 20 MG PO (09:26)
[2020-06-16] MEDS: aspirin 81 mg EC Tablet PO (09:27)
[2020-06-16] MEDS: pantoprazole DR 40 mg Tablet PO (09:27)
[2020-06-16] MEDS: ferrous gluconate 324 mg Tablet PO ×2 (09:27→17:52)
[2020-06-16] MEDS: lisinopril 10 mg Tablet PO (09:27)
[2020-06-16] MEDS: zinc gluconate 50 mg Tablet PO (09:27)
[2020-06-16] MEDS: dexamethasone 4 mg/mL INJ 6 MG IVP (09:27)
[2020-06-16] MEDS: tamsulosin 0.4 mg Capsule PO (09:27)
[2020-06-16] MEDS: benzonatate 100 mg Capsule PO ×3 (09:27→21:06)
[2020-06-16] MEDS: gabapentin 300 mg Capsule PO ×3 (09:27→21:06)
[2020-06-16 11:51] LABS: Glucose Point of Care 198 mg/dL (70-110)
[2020-06-16 12:30] LABS: Alanine Aminotransferase 11 U/L (0-41); Albumin Level 3.4 g/dL (3.5-5.2); Alkaline Phosphatase 63 IU/L (40-130); Aspartate Amino Transferase 21 U/L (0-40); Blood Urea Nitrogen 21 mg/dL (8-23); Calcium 8.1 mg/dL (8.5-10.5); Carbon Dioxide 22 mmol/L (22-29); Chloride 97 mmol/L (98-107); Globulin 2.8 g/dL (1.3-4.6); Glucose 173 mg/dL (65-115); Osmolality Calculated 277 mOsm/kg (285-295); Sodium 130 mmol/L (136-145); Total Bilirubin 0.4 mg/dL (0.15-1.2); Total Protein 6.2 g/dL (6.6-8.7)
--- NOTE | 2020-06-16 13:06 | P.PN_ITS ---
Subjective Subjective: Interval history: No acute events overnight. On examination lying comfortably in bed. Saturating more than 90% on 4 L oxygen supplementation. Hemodynamically has remained stable. Hemodynamic stable. Afebrile. He continues to work well with incentive spirometry and flutter valve. Discussed in detail regarding prone and semiprone positioning today. Vitals/I&O/Wt Last Vital Signs Temp 98.3 F 06/15/20 19:53 Pulse 78 06/16/20 10:02 Resp 20 H 06/16/20 10:02 BP 91/30 06/16/20 10:02 Pulse Ox 94 06/16/20 10:02 06/15/20 06/16/20 06/16/20 22:59 06:59 14:59 Intake Total 540 / 1773.75 360 / 360 Output Total 650 / 650 200 / 200 Balance 540 / 1773.75 -650 / 1123.75 160 / 160 Weight last 48 hrs Weight 66.82 kg Weight 62.369 kg Physical Exam Narrative: EXAM NARRATIVE: General: No acute distress, AO x3, dehydrated, on 3 L nasal cannula HEENT: PERRLA, pupils bilaterally equal and reactive Chest: Bilateral bronchial breath sounds, rhonchi all over the lung bassett, coarse crackles in right middle zone CVS: S1-S2 regular, soft ejection systolic murmur present at the aortic area, no tachycardia, no gallops, no rubs Abdomen: Soft, nontender, no organomegaly, bowel sounds present Neuro: No focal deficits, no facial deformity, AO x3, power 5/5 in all limbs Extremities: Below the knee right amputation Data : 06/16/20 03:20 06/16/20 10:50 Micro: Microbiology 06/14/20 18:50 Blood Culture - Preliminary Blood NEGATIVE TO DATE 06/14/20 18:50 Blood Culture - Preliminary Blood NEGATIVE TO DATE 06/14/20 18:50 MRSA Culture - Final Nose A&P Assessment and plan (1) Hypoxia: Status: Acute (2) Pneumonia due to COVID-19 virus: Status: Acute (3) Peripheral arterial disease: Status: Acute (4) Type 2 diabetes mellitus with complication, without long-term current use of insulin: Status: Acute (5) Hx pulmonary embolism: Status: Acute (6) Hx of CABG: Status: Acute (7) History of GI bleed: Status: Acute (8) Hypothyroidism: Status: Acute Additional A&P Information Hypoxia due to COVID-19 pneumonia: At least moderate disease at requiring 3 L of oxygen supplementation to keep saturation over 90%. Continue antiviral treatment with remdesevir. Day 3/5. Will most likely finish a 5-day course and monitor for day afterwards. Dexamethasone 6 mg IV daily. Advair, Spiriva. Vitamin C, zinc, Tessalon Perles. QTC within normal limits. No more bradycardia. Patient is not on any rate limiting drug at home. Oxygen supplementation keeping saturation over 90%. Patient's d-dimer is elevated but CTA negative for pulmonary embolism. Patient has a history of GI bleed for which he is not on anticoagulation at present even though he has a history of pulmonary embolism. D-dimer trending down. Patient is not requiring more oxygen than yesterday so for now we will continue to monitor. Chances of bacterial pneumonia are low. Procalcitonin negative, MRSA and Legionella negative along with bacterial antigen. For now continue with azithromycin 500 mg daily. Day 3 today. History of CABG/history of pulmonary embolism/history of peripheral arterial disease: Echocardiogram results appreciated with EF of 35 to 40% with global LV hypokinesia, mild pulmonary hypertension with RVSP of 25 mmHg. Continue home dose of aspirin, statin. A1c 6.2, lipid panel results appreciated. Patient is euvolemic at present. Hypothyroidism: New diagnosis. TSH more than 10. Continue levothyroxine 50 mcg daily. Hyponatremia: Improving. Could be the cause of weakness as well along with viral prodrome. Urine sodium 43. Continue oral salt tablets. Continue to monitor BMP daily. History of GI bleed: Hemoglobin stable for now. We will check iron panel. Protonix for PUD prophylaxis. Continue to monitor hemoglobin daily. Hypertension: Goal blood pressure less than 140/90 mmhg. We will decrease the dose of lisinopril to 5 mg daily. Blood pressures mildly soft today. We will continue to monitor blood pressures. Type 2 diabetes mellitus: Insulin sliding scale at moderate dose. Carb consistent cardiac diet. We will continue to monitor. Full code. Protonix for PUD prophylaxis. Lovenox for DVT prophylaxis. Discharge planning: Most likely patient will require 5-day full course of antiviral treatment. Will monitor for 1 day afterwards on oral steroid and then can plan to discharge home. Will need home O2 evaluation prior to discharge. Attestations Medical Necessity Statement*: Acute hypoxia because of COVID-19 pneumonia, hyponatremia Time Spent in Patient Care: Greater than 35 minutes (>than 50% of time spent in counselling and/or direct pt care on unit) . Coding Level of Care Code Acute Installer Interior [employer]semblies for g Fwd Diagnoses Hypoxia R09.02 Pneumonia due to COVID-19 virus U07.1; J12.89 Peripheral arterial disease I73.9 Type 2 diabetes mellitus with complication, without long-term current use of insulin E11.8 Hx pulmonary embolism Z86.711 Hx of CABG Z95.1 History of GI bleed Z87.19 Hypothyroidism E03.9
[2020-06-16 17:09] LABS: Glucose Point of Care 251 mg/dL (70-110)
[2020-06-16 21:22] LABS: Glucose Point of Care 179 mg/dL (70-110)
[2020-06-16 21:22] LABS: Glucose Point of Care 211 mg/dL (70-110)
[2020-06-17] VITALS (20 sets, daily range): BP systolic 90–135; BP diastolic 42–75; PULSE 53–84; RESP 16–32; TEMP 36.5–36.9; O2SAT 86–97
[2020-06-17 05:15] LABS: Hematocrit 40.1 % (42.0-52.0); Hemoglobin 13.5 g/dL (11.7-16.6); Lymphocytes # 0.4 10^3/uL (0.8-4.8); Lymphocytes % 9.6 %; Mean Corpuscular HGB Conc 33.7 g/dL (30.0-36.0); Mean Corpuscular Hemoglobin 29.6 pg (28.0-34.0); Mean Corpuscular Volume 87.9 fL (80-94); Monocytes # 0.4 10^3/uL (0.2-0.9); Monocytes % 9.6 %; Neutrophils # 3.17 10^3/uL (1.8-7.7); Neutrophils % 80.5 %; Nucleated Red Blood Cells % 0 %; Platelet Count 262 10^3/cmm (130-400); Red Blood Count 4.56 10^6/uL (4.1-5.3); Red Cell Distribution Width 14.3 % (12.1-15.1); White Blood Count 3.9 10^3/uL (4.0-10.0)
[2020-06-17 05:41] LABS: D Dimer 0.77 ug/mIFEU (0-0.59)
[2020-06-17 05:48] LABS: Alanine Aminotransferase 14 U/L (0-41); Albumin Level 3.4 g/dL (3.5-5.2); Alkaline Phosphatase 66 IU/L (40-130); Anion Gap 15.5 (5-19); Aspartate Amino Transferase 25 U/L (0-40); Blood Urea Nitrogen 22 mg/dL (8-23); Calcium 8.4 mg/dL (8.5-10.5); Carbon Dioxide 21 mmol/L (22-29); Chloride 98 mmol/L (98-107); Globulin 2.2 g/dL (1.3-4.6); Glucose 139 mg/dL (65-115); Osmolality Calculated 276 mOsm/kg (285-295); Potassium 4.5 mmol/L (3.5-5.1); Sodium 130 mmol/L (136-145); Total Bilirubin 0.4 mg/dL (0.15-1.2); Total Protein 5.6 g/dL (6.6-8.7)
[2020-06-17 05:53] LABS: C Reactive Protein 61.1 mg/L (0.0-4.9); Creatine Phosphokinase 34 U/L (39-308); Ferritin 570 ng/mL (30-400); Lactate Dehydrogenase 227 U/L (135-225); NT Pro B Type Natriuretic Pept 787 pg/mL (0-450)
--- NOTE | 2020-06-17 06:00 | XR_ITS ---
WS: [id number] XR chest 1V portable [id number] REASON FOR EXAM: covid FINDINGS: Comparison examination 06/15/2020 Again are noted the poststernotomy and coronary artery bypass steph and wire suture. The lungs are hyperexpanded with increased interstitial bronchovascular markings centrally in the mid lungs and in the lower lung bassett. These findings were noted on the previous examination and are un changed. XR/XR chest 1V portable [id number] IMPRESSION: Stable postsurgical, emphysematous chest. No acute abnormality.
[2020-06-17 07:29] LABS: Fibrinogen 524 mg/dL (174-498)
[2020-06-17 07:44] LABS: Glucose Point of Care 140 mg/dL (70-110)
--- NOTE | 2020-06-17 08:19 | PC.RESP ---
PULMONARY REHAB INFORMATION SENT TO PATIENT.
[2020-06-17] MEDS: atorvastatin 40 mg Tablet 20 MG PO (08:37)
[2020-06-17] MEDS: dexamethasone 4 mg/mL INJ 6 MG IVP (08:38)
[2020-06-17] MEDS: tamsulosin 0.4 mg Capsule PO (08:38)
[2020-06-17] MEDS: sodium chloride 1 gm Tablet PO ×2 (08:38→17:29)
[2020-06-17] MEDS: lisinopril 5 mg Tablet PO (08:38)
[2020-06-17] MEDS: ascorbic acid 500 mg Tablet PO (08:38)
[2020-06-17] MEDS: levothyroxine 50 mcg Tablet PO (08:38)
[2020-06-17] MEDS: benzonatate 100 mg Capsule PO ×3 (08:38→21:17)
[2020-06-17] MEDS: aspirin 81 mg EC Tablet PO (08:38)
[2020-06-17] MEDS: gabapentin 300 mg Capsule PO ×3 (08:38→21:17)
[2020-06-17] MEDS: pantoprazole DR 40 mg Tablet PO (08:38)
[2020-06-17] MEDS: zinc gluconate 50 mg Tablet PO (08:38)
[2020-06-17] MEDS: ferrous gluconate 324 mg Tablet PO ×2 (08:38→17:27)
[2020-06-17 12:01] LABS: Glucose Point of Care 226 mg/dL (70-110)
--- NOTE | 2020-06-17 15:05 | PM.PN ---
Subjective Subjective: Interval history: Continued increased oxygen requirement, now requiring 7 L high flow nasal cannula, intermittent bradycardia, otherwise hemodynamically stable, afebrile. Noted overall downward trend in inflammatory markers. On day 4 of Remdesevir. Resting quietly in bed, seems quite flat and withdrawn during my encounter, reports persistent dry cough. Declines offer to contact family. Medications: Reviewed: Yes Medication Review Details: Active Medications Generic Name Dose Route Start Last Admin Trade Name Freq PRN Reason Stop Dose Admin Acetaminophen 650 mg 06/14/20 18:35 Tylenol PO Q6H PRN Mild/Mod Pain Or Temp >/= 101 Albuterol Sulfate 2 puff 06/15/20 07:05 Ventolin INHALATION Q4H.RESPIRATORY P RN SHORTNESS OF MAN TH Ascorbic Acid 500 mg 06/15/20 09:00 06/17/20 08:38 Vitamin C PO 500 mg DAILY DINA Administration Aspirin 81 mg 06/15/20 09:00 06/17/20 08:38 Aspirin Ec PO 81 mg DAILY DINA Administration Atorvastatin Calci um 20 mg 06/15/20 09:00 06/17/20 08:37 Lipitor PO 20 mg DAILY DINA Administration Benzonatate 100 mg 06/14/20 21:00 06/17/20 15:03 Tessalon Pearls PO 100 mg TID DINA Administration Bisacodyl 10 mg 06/14/20 18:35 Dulcolax PO DAILY PRN CONSTIPATION Dexamethasone 6 mg 06/15/20 09:00 06/17/20 08:38 Decadron IVP 6 mg Q24H DINA Administration Dextrose 25 ml 06/14/20 17:44 D50w IVP ONCE PRN hypoglycemia prot ocol Protocol Dextrose 50 ml 06/14/20 17:44 D50w IVP PRN PRN hypoglycemia prot ocol Protocol Ferrous Gluconate 324 mg 06/14/20 18:00 06/17/20 08:38 Ferrous Gluconat e PO 324 mg BIDWM DINA Administration Gabapentin 300 mg 06/14/20 21:00 06/17/20 15:03 Neurontin PO 300 mg TID DINA Administration Glucagon 1 mg 06/14/20 17:44 Glucagen IM ONCE PRN Adult Acute Hypog lycemia Prot. Protocol remdesivir (EUA) 1 00 mg/ 100 mls @ 100 mls /hr 06/15/20 17:30 06/17/20 15:00 Sodium Chloride IV 06/18/20 18:29 Infused Q24H DINA Infusion Dextrose 500 mls @ 100 mls /hr 06/14/20 17:44 D5w IV ONCE PRN Adult Acute Hypog lycemia Prot Protocol Insulin Aspart 0 unit 06/14/20 18:00 06/17/20 12:50 Novolog SUBCUT 8 unit WM&BEDTIME DINA Administration Protocol Lactulose 10 gm 06/14/20 18:35 Constulose PO DAILY PRN CONSTIPA Levothyroxine Sodi um 50 mcg 06/16/20 09:00 06/17/20 08:38 Synthroid PO 50 mcg DAILY DINA Administration Lisinopril 5 mg 06/17/20 09:00 06/17/20 08:38 Prinivil PO 5 mg DAILY DINA Administration Ondansetron HCl 4 mg 06/14/20 18:35 Zofran IVP Q8H PRN vomiting, or N/V if npo Pantoprazole Sodiu m 40 mg 06/15/20 09:00 06/17/20 08:38 Protonix PO 40 mg DAILY DINA Administration Fluticasone/Salmet cherry 1 puff 06/14/20 20:00 06/17/20 08:45 Advair Diskus 25 0-50 INHALATION 1 puff BID.RESPIRATORY S CH Administration Sodium Chloride 1 gm 06/15/20 14:40 06/17/20 08:38 Salt Tab PO 1 gm BID DINA Administration Tamsulosin HCl 0.4 mg 06/15/20 09:00 06/17/20 08:38 Flomax PO 0.4 mg DAILY DINA Administration Tiotropium [place] 18 mcg 06/15/20 08:00 06/17/20 08:45 Spiriva INHALATION 1 puff DAILY.RESPIRATORY DINA Administration Zinc Gluconate 50 mg 06/15/20 09:00 06/17/20 08:38 Zinc Gluconate PO 50 mg DAILY DINA Administration No Known Allergies Allergy (Verified 06/14/20 13:46) Vitals/I&O/Wt Last Vital Signs Temp 98.0 F 06/17/20 08:00 Pulse 84 06/17/20 15:01 Resp 16 06/17/20 15:01 BP 119/67 06/17/20 12:00 Pulse Ox 93 06/17/20 15:01 06/17/20 06/17/2006/17/20 06:59 14:59 22:59 Intake Total 660 / 660 100 / 760 Output Total 475 / 1075 850 / 850 Balance -475 / -40 -190 / -190 100 / -90 Weight last 48 hrs Weight 66.82 kg Weight 66.82 kg Physical Exam Const: COMMON NORMALS: no acute distress, patient oriented x3 and alert GENERAL APPEARANCE: cooperative, comfortable and appears older than stated age NUTRITIONAL APPEARANCE: thin ORIENTATION/CONSCIOUSNESS: Yes awake HENMT: COMMON NORMALS: normocephalic, atraumatic, hearing grossly normal bilaterally and moist oral mucous membranes HEAD & SCALP: normocephalic and atraumatic Eye: COMMON NORMALS: Equal, round and reactive pupils present, EOMs intact bilaterally and conjunctivae normal CONJUNCTIVA: Yes conjunctivae normal PUPIL: Yes Equal, round and reactive pupils present Neck/C-Spine: COMMON NORMALS: full ROM GENERAL: Yes normal visual inspection and Yes trachea midline Resp: COMMON NORMALS: normal respiratory effort, No retractions and No use of accessory muscles EFFORT & INSPECTION: Yes able to speak in complete sentences, Yes symmetric chest movement and Yes tachypneic AUSCULTATION: rales and diminished lung sounds OTHER: -on 7 L high flow NC Cardio: COMMON NORMALS: regular rate, regular rhythm, S1 normal heart sound present, S2 normal heart sound present and No murmurs present (Cardio) RATE: regular rate RHYTHM: regular rhythm HEART SOUNDS: S1 normal heart sound present and S2 normal heart sound present GI: COMMON NORMALS: Normal to inspection, nondistended, normoactive bowel sounds present, Soft to palpation and non-tender PALPATION: Yes Soft to palpation Extremity: COMMON NORMALS: normal to inspection, full ROM and no clubbing, cyanosis or edema; negative for no pedal edema Neuro: COMMON NORMALS: patient oriented x3, moves all extremities, no focal motor deficits, no sensory deficits noted and gait normal SENSORIUM/ORIENTATION: Yes alert Psych: COMMON NORMALS: mental status grossly normal, Normal thought process present, cooperative and speech normal SPEECH: Yes normal speech MOOD & AFFECT: Yes Flat affect present THOUGHT PROCESS: Normal thought process present Skin: COMMON NORMALS: no rashes or lesions noted, no jaundice, no petechiae and no mottling GENERAL SKIN EXAM: no rashes or lesions noted Data : 06/17/20 04:00 06/17/20 04:00 A&P Assessment and plan (1) COVID-19: -Noted to be COVID-19 positive, associated hypoxia with noted increased oxygen requirement, now up to 7 L high flow nasal cannula -On day 4/5 of Remdesevir -Continue supportive treatment with zinc, vitamin C, dexamethasone, inhaler treatments, antitussives -Close monitoring of respiratory status -Wean oxygen requirement as tolerated, home oxygen evaluation prior to discharge if appropriate -Telemetry monitoring -Noted overall downward trend in inflammatory markers, continue to monitor -Imaging noted -Negative MRSA, Legionella, bacterial antigens -blood cx: prelim negative -Received 3 days of azithromycin -Pulmonary toilet, incentive spirometry Status: Acute (2) Hypoxia: -Secondary to acute COVID-19 infection as noted above Status: Acute (3) Pneumonia due to COVID-19 virus: -As noted above Status: Acute (4) Hyponatremia: -Continue to trend sodium levels -Continue supplementation p.o. Status: Acute (5) PVD (peripheral vascular disease): Status: Chronic (6) Hyperlipemia, mixed: -on statin Status: Chronic (7) Type 2 diabetes mellitus with complication, without long-term current use of insulin: -A1c at goal-6.2 -Accuchecks, ISS, hypoglycemia precautions -consistent carb diet as tolerated Status: Chronic (8) GERD (gastroesophageal reflux disease): -on PPI Status: Chronic Qualifiers: Esophagitis presence: without esophagitis Qualified Code(s): K21.9 - Gastro-esophageal reflux disease without esophagitis (9) Hypothyroidism: -Noted elevated TSH, normal free T4 -Continue levothyroxine Status: Acute Qualifiers: Hypothyroidism type: unspecified Qualified Code(s): E03.9 - Hypothyroidism, unspecified Additional A&P Information -hx of CAD s/p CABG: Echo-EF=35-40%, moderate global hypokinesis, trace MR, no evidence of pulmonary HTN. Continue ASA, statin -hx of PE; no AC due to hx of GI bleed -hx of cardiomyopathy, systolic CHF; no acute exacerbation -hx of HTN; continue to monitor vital signs, continue oral antihypertensives -BPH; on tamsulosin -GI ppx with PPI -DVT ppx with lovenox -Dispo: home -Code status: FULL code -declined offer to contact family for updates Attestations Medical Necessity Statement*: Patient requires hospitalization for continued management of COVID-19 infection with increasing oxygen requirement, remains on antiviral treatment and supportive care, needs continued close monitoring of respiratory status. Time Spent in Patient Care: Greater than 35 minutes (>than 50% of time spent in counselling and/or direct pt care on unit). Coding Level of Care Code Acute Advertising Account Manager for g Fwd Exam Comprehensive Diagnoses COVID-19 U07.1 Hypoxia R09.02 Pneumonia due to COVID-19 virus U07.1; J12.89 Hyponatremia E87.1 PVD (peripheral vascular disease) I73.9 Hyperlipemia, mixed E78.2 Type 2 diabetes mellitus with complication, without long-term current use of insulin E11.8 GERD (gastroesophageal reflux disease) K21.9 Esophagitis presence: without esophagitis Hypothyroidism E03.9 Hypothyroidism type: unspecified
--- NOTE | 2020-06-17 15:22 | DCPLANNER ---
Pg 2 of IM explained to ; Samreen Espino [phone]. No questions, she appreciates the call.
[2020-06-17 16:54] LABS: Glucose Point of Care 204 mg/dL (70-110)
[2020-06-17 19:42] LABS: Glucose Point of Care 182 mg/dL (70-110)
[2020-06-17 19:42] LABS: Glucose Point of Care 201 mg/dL (70-110)
[2020-06-17 21:32] LABS: Glucose Point of Care 175 mg/dL (70-110)
[2020-06-18] VITALS (15 sets, daily range): BP systolic 88–119; BP diastolic 40–68; PULSE 60–97; RESP 16–38; TEMP 36.6–38.3; O2SAT 79–97
[2020-06-18 06:05] LABS: Basophils % 0.1 %; Eosinophils % 0.1 %; Hematocrit 41.7 % (42.0-52.0); Hemoglobin 13.8 g/dL (11.7-16.6); Lymphocytes # 0.5 10^3/uL (0.8-4.8); Lymphocytes % 6.3 %; Mean Corpuscular HGB Conc 33.1 g/dL (30.0-36.0); Mean Corpuscular Hemoglobin 29.6 pg (28.0-34.0); Mean Corpuscular Volume 89.3 fL (80-94); Monocytes # 0.6 10^3/uL (0.2-0.9); Monocytes % 6.5 %; Neutrophils # 7.45 10^3/uL (1.8-7.7); Neutrophils % 86.2 %; Nucleated Red Blood Cells % 0 %; Platelet Count 259 10^3/cmm (130-400); Red Blood Count 4.67 10^6/uL (4.1-5.3); Red Cell Distribution Width 14.4 % (12.1-15.1); White Blood Count 8.6 10^3/uL (4.0-10.0)
[2020-06-18 06:29] LABS: Ferritin 534 ng/mL (30-400)
[2020-06-18 06:33] LABS: Alanine Aminotransferase 39 U/L (0-41); Albumin Level 3.3 g/dL (3.5-5.2); Alkaline Phosphatase 66 IU/L (40-130); Anion Gap 14.3 (5-19); Aspartate Amino Transferase 54 U/L (0-40); Blood Urea Nitrogen 21 mg/dL (8-23); C Reactive Protein 34.1 mg/L (0.0-4.9); Calcium 8.6 mg/dL (8.5-10.5); Carbon Dioxide 23 mmol/L (22-29); Chloride 97 mmol/L (98-107); Globulin 2.8 g/dL (1.3-4.6); Glucose 117 mg/dL (65-115); Osmolality Calculated 274 mOsm/kg (285-295); Potassium 4.3 mmol/L (3.5-5.1); Sodium 130 mmol/L (136-145); Total Bilirubin 0.3 mg/dL (0.15-1.2); Total Protein 6.1 g/dL (6.6-8.7)
[2020-06-18 06:37] LABS: Fibrinogen 329 mg/dL (174-498)
[2020-06-18 06:40] LABS: D Dimer 0.63 ug/mIFEU (0-0.59)
[2020-06-18 07:54] LABS: Glucose Point of Care 97 mg/dL (70-110)
[2020-06-18] MEDS: pantoprazole DR 40 mg Tablet PO (08:24)
[2020-06-18] MEDS: ascorbic acid 500 mg Tablet PO (08:24)
[2020-06-18] MEDS: levothyroxine 50 mcg Tablet PO (08:24)
[2020-06-18] MEDS: aspirin 81 mg EC Tablet PO (08:24)
[2020-06-18] MEDS: atorvastatin 40 mg Tablet 20 MG PO (08:24)
[2020-06-18] MEDS: dexamethasone 4 mg/mL INJ 6 MG IVP (08:24)
[2020-06-18] MEDS: benzonatate 100 mg Capsule PO ×3 (08:24→20:22)
[2020-06-18] MEDS: lisinopril 5 mg Tablet PO (08:25)
[2020-06-18] MEDS: gabapentin 300 mg Capsule PO ×3 (08:25→20:22)
[2020-06-18] MEDS: tamsulosin 0.4 mg Capsule PO (08:25)
[2020-06-18] MEDS: zinc gluconate 50 mg Tablet PO (08:25)
[2020-06-18] MEDS: ferrous gluconate 324 mg Tablet PO ×2 (08:25→17:35)
[2020-06-18] MEDS: sodium chloride 1 gm Tablet PO ×3 (08:25→20:22)
--- NOTE | 2020-06-18 10:48 | PC.NURSE ---
attempted to assist pt with a bath, pt agreed. returned from getting supplies, and pt denied saying I am tired and want to rest. repositioned pt and placed call light within reach.
[2020-06-18 11:28] LABS: Glucose Point of Care 252 mg/dL (70-110)
--- NOTE | 2020-06-18 12:06 | PM.PN ---
Subjective Subjective: Interval history: Had 1200 mL urine output overnight, hemodynamically stable, afebrile. On day 5 of Remdesevir. Inflammatory markers continue to trend down. On 6 L nasal cannula. Appears to be quite fatigued, minimal appetite today. Medications: Reviewed: Yes Medication Review Details: Active Medications Generic Name Dose Route Start Last Admin Trade Name Freq PRN Reason Stop Dose Admin Acetaminophen 650 mg 06/14/20 18:35 Tylenol PO Q6H PRN Mild/Mod Pain Or Temp >/= 101 Albuterol Sulfate 2 puff 06/15/20 07:05 Ventolin INHALATION Q4H.RESPIRATORY P RN SHORTNESS OF MAN TH Ascorbic Acid 500 mg 06/15/20 09:00 06/18/20 08:24 Vitamin C PO 500 mg DAILY DINA Administration Aspirin 81 mg 06/15/20 09:00 06/18/20 08:24 Aspirin Ec PO 81 mg DAILY DINA Administration Atorvastatin Calci um 20 mg 06/15/20 09:00 06/18/20 08:24 Lipitor PO 20 mg DAILY DINA Administration Benzonatate 100 mg 06/14/20 21:00 06/18/20 08:24 Tessalon Pearls PO 100 mg TID DINA Administration Bisacodyl 10 mg 06/14/20 18:35 Dulcolax PO DAILY PRN CONSTIPATION Dexamethasone 6 mg 06/15/20 09:00 06/18/20 08:24 Decadron IVP 6 mg Q24H DINA Administration Dextrose 25 ml 06/14/20 17:44 D50w IVP ONCE PRN hypoglycemia prot ocol Protocol Dextrose 50 ml 06/14/20 17:44 D50w IVP PRN PRN hypoglycemia prot ocol Protocol Ferrous Gluconate 324 mg 06/14/20 18:00 06/18/20 08:25 Ferrous Gluconat e PO 324 mg BIDWM DINA Administration Gabapentin 300 mg 06/14/20 21:00 06/18/20 08:25 Neurontin PO 300 mg TID DNIA Administration Glucagon 1 mg 06/14/20 17:44 Glucagen IM ONCE PRN Adult Acute Hypog lycemia Prot. Protocol remdesivir (EUA) 1 00 mg/ 100 mls @ 100 mls /hr 06/15/20 17:30 06/18/20 07:40 Sodium Chloride IV 06/18/20 18:29 Infused Q24H DINA Infusion Dextrose 500 mls @ 100 mls /hr 06/14/20 17:44 D5w IV ONCE PRN Adult Acute Hypog lycemia Prot Protocol Insulin Aspart 0 unit 06/14/20 18:00 06/18/20 11:39 Novolog SUBCUT 8 unit WM&BEDTIME DINA Administration Protocol Lactulose 10 gm 06/14/20 18:35 Constulose PO DAILY PRN CONSTIPA Levothyroxine Sodi um 50 mcg 06/16/20 09:00 06/18/20 08:24 Synthroid PO 50 mcg DAILY DINA Administration Lisinopril 5 mg 06/17/20 09:00 06/18/20 08:25 Prinivil PO 5 mg DAILY DINA Administration Ondansetron HCl 4 mg 06/14/20 18:35 Zofran IVP Q8H PRN vomiting, or N/V if npo Pantoprazole Sodiu m 40 mg 06/15/20 09:00 06/18/20 08:24 Protonix PO 40 mg DAILY DINA Administration Fluticasone/Salmet cherry 1 puff 06/14/20 20:00 06/18/20 10:16 Advair Diskus 25 0-50 INHALATION 1 puff BID.RESPIRATORY S CH Administration Sodium Chloride 1 gm 06/15/20 14:40 06/18/20 08:25 Salt Tab PO 1 gm BID DINA Administration Tamsulosin HCl 0.4 mg 06/15/20 09:00 06/18/20 08:25 Flomax PO 0.4 mg DAILY DINA Administration Tiotropium [place] 18 mcg 06/15/20 08:00 06/18/20 10:16 Spiriva INHALATION 1 puff DAILY.RESPIRATORY DINA Administration Zinc Gluconate 50 mg 06/15/20 09:00 06/18/20 08:25 Zinc Gluconate PO 50 mg DAILY DINA Administration No Known Allergies Allergy (Verified 06/14/20 13:46) Vitals/I&O/Wt Last Vital Signs Temp 98.0 F 06/18/20 08:00 Pulse 86 06/18/20 09:30 Resp 16 06/18/20 09:30 BP 116/63 06/18/20 08:00 Pulse Ox 92 06/18/20 09:30 06/17/20 06/18/20 06/18/20 22:59 06:59 14:59 Intake Total 350 / 1010 350 / 350 Output Total 200 / 1050 1200 / 2250 Balance 150 / -40 -1200 / -1240 350 / 350 Weight last 48 hrs Weight 66.82 kg Weight 66.82 kg Physical Exam Const: COMMON NORMALS: no acute distress, patient oriented x3 and alert GENERAL APPEARANCE: cooperative, comfortable and appears older than stated age NUTRITIONAL APPEARANCE: thin ORIENTATION/CONSCIOUSNESS: Yes awake OTHER: -appears fatigued HENMT: COMMON NORMALS: normocephalic, atraumatic, hearing grossly normal bilaterally and moist oral mucous membranes HEAD & SCALP: normocephalic and atraumatic Eye: COMMON NORMALS: Equal, round and reactive pupils present, EOMs intact bilaterally and conjunctivae normal CONJUNCTIVA: Yes conjunctivae normal PUPIL: Yes Equal, round and reactive pupils present Neck/C-Spine: COMMON NORMALS: full ROM GENERAL: Yes normal visual inspection and Yes trachea midline Resp: COMMON NORMALS: normal respiratory effort, No retractions and No use of accessory muscles EFFORT & INSPECTION: Yes able to speak in complete sentences, Yes symmetric chest movement and Yes tachypneic AUSCULTATION: rales and diminished lung sounds OTHER: -on 7 L high flow NC Cardio: COMMON NORMALS: regular rate, regular rhythm, S1 normal heart sound present, S2 normal heart sound present and No murmurs present (Cardio) RATE: regular rate RHYTHM: regular rhythm HEART SOUNDS: S1 normal heart sound present and S2 normal heart sound present GI: COMMON NORMALS: Normal to inspection, nondistended, normoactive bowel sounds present, Soft to palpation and non-tender PALPATION: Yes Soft to palpation Extremity: COMMON NORMALS: no clubbing, cyanosis or edema and no pedal edema GENERAL: Yes amputation (s/p R BKA) Neuro: COMMON NORMALS: patient oriented x3, moves all extremities, no focal motor deficits and no sensory deficits noted SENSORIUM/ORIENTATION: Yes alert Psych: COMMON NORMALS: mental status grossly normal, Normal thought process present, cooperative and speech normal SPEECH: Yes normal speech MOOD & AFFECT: Yes Flat affect present THOUGHT PROCESS: Normal thought process present Skin: COMMON NORMALS: no rashes or lesions noted, no jaundice, no petechiae and no mottling GENERAL SKIN EXAM: no rashes or lesions noted Data : 06/18/20 04:00 06/18/20 04:00 A&P Assessment and plan (1) COVID-19: -Noted to be COVID-19 positive, associated hypoxia with noted increased oxygen requirement, now up to 7 L high flow nasal cannula -On day 5/5 of Remdesevir -Continue supportive treatment with zinc, vitamin C, dexamethasone, inhaler treatments, antitussives -Close monitoring of respiratory status -Wean oxygen requirement as tolerated, home oxygen evaluation prior to discharge if appropriate -Telemetry monitoring -Noted overall downward trend in inflammatory markers, continue to monitor -Imaging noted -Negative MRSA, Legionella, bacterial antigens -blood cx: prelim negative -Received 3 days of azithromycin -Pulmonary toilet, incentive spirometry Status: Acute (2) Hypoxia: -Secondary to acute COVID-19 infection as noted above Status: Acute (3) Pneumonia due to COVID-19 virus: -As noted above Status: Acute (4) Hyponatremia: -Continue to trend sodium levels -Continue supplementation p.o. Status: Acute (5) PVD (peripheral vascular disease): Status: Chronic (6) Hyperlipemia, mixed: -on statin Status: Chronic (7) Type 2 diabetes mellitus with complication, without long-term current use of insulin: -A1c at goal-6.2 -Accuchecks, ISS, hypoglycemia precautions -consistent carb diet as tolerated Status: Chronic (8) GERD (gastroesophageal reflux disease): -on PPI Status: Chronic Qualifiers: Esophagitis presence: without esophagitis Qualified Code(s): K21.9 - Gastro-esophageal reflux disease without esophagitis (9) Hypothyroidism: -Noted elevated TSH, normal free T4 -Continue levothyroxine Status: Acute Qualifiers: Hypothyroidism type: unspecified Qualified Code(s): E03.9 - Hypothyroidism, unspecified Additional A&P Information -hx of CAD s/p CABG: Echo-EF=35-40%, moderate global hypokinesis, trace MR, no evidence of pulmonary HTN. Continue ASA, statin -hx of PE; no AC due to hx of GI bleed -hx of cardiomyopathy, systolic CHF; no acute exacerbation -hx of HTN; continue to monitor vital signs, continue oral antihypertensives -BPH; on tamsulosin -GI ppx with PPI -DVT ppx with lovenox -Dispo: home -Code status: FULL code -declined offer to contact family for updates Attestations Medical Necessity Statement*: Patient requires hospitalization for continued treatment of COVID-19 infection, completing antiviral treatment today, continues to have high oxygen requirement. Time Spent in Patient Care: 16 - 35 minutes (>than 50% of time spent in counselling and/or direct pt care on unit). Coding Level of Care Code Acute Pack Out Operator for g Fwd Exam Comprehensive Diagnoses COVID-19 U07.1 Hypoxia R09.02 Pneumonia due to COVID-19 virus U07.1; J12.89 Hyponatremia E87.1 PVD (peripheral vascular disease) I73.9 Hyperlipemia, mixed E78.2 Type 2 diabetes mellitus with complication, without long-term current use of insulin E11.8 GERD (gastroesophageal reflux disease) K21.9 Esophagitis presence: without esophagitis Hypothyroidism E03.9 Hypothyroidism type: unspecified
[2020-06-18 17:18] LABS: Glucose Point of Care 87 mg/dL (70-110)
--- NOTE | 2020-06-18 18:32 | PC.NURSE ---
END OF SHIFT SUMMARY pt is very pleasant. pt A/Ox4. pt has had good urine output. pt able to take morning and evening po meds well. pt has been able to rest well today. iv patent. pt currently resting in bed. pt stated no other concerns at this time. call light within reach.
[2020-06-18 20:20] LABS: Glucose Point of Care 107 mg/dL (70-110)
[2020-06-18] MEDS: acetaminophen 325 mg Tablet 650 MG PO (20:21)
[2020-06-19] VITALS (25 sets, daily range): BP systolic 71–129; BP diastolic 42–82; PULSE 57–110; RESP 15–31; TEMP 36.4–37.2; O2SAT 86–99
--- NOTE | 2020-06-19 06:00 | XR_ITS ---
WS: [id number] XR chest 1V portable [id number] REASON FOR EXAM: covid FINDINGS: Compared to a previous chest x-ray of 06/17/2020 the patient appears to be developing infiltrative den sity in the axillary aspect of the left mid lung field. There does not appear to be significant inter rodney change in the right lung field. No other interval change. XR/XR chest 1V portable [id number] IMPRESSION: There appears to be a developing infiltrative process in the axillary aspect of the left mid lung field.
[2020-06-19 06:57] LABS: Ferritin 463 ng/mL (30-400); Lactate Dehydrogenase 286 U/L (135-225)
[2020-06-19 06:58] LABS: Alanine Aminotransferase 37 U/L (0-41); Albumin Level 3.3 g/dL (3.5-5.2); Alkaline Phosphatase 67 IU/L (40-130); Anion Gap 15.8 (5-19); Aspartate Amino Transferase 36 U/L (0-40); Blood Urea Nitrogen 19 mg/dL (8-23); C Reactive Protein 60.3 mg/L (0.0-4.9); Calcium 8.6 mg/dL (8.5-10.5); Carbon Dioxide 24 mmol/L (22-29); Chloride 96 mmol/L (98-107); Globulin 2.9 g/dL (1.3-4.6); Glucose 87 mg/dL (65-115); Osmolality Calculated 274 mOsm/kg (285-295); Potassium 4.8 mmol/L (3.5-5.1); Sodium 131 mmol/L (136-145); Total Bilirubin 0.6 mg/dL (0.15-1.2); Total Protein 6.2 g/dL (6.6-8.7)
--- NOTE | 2020-06-19 07:08 | PC.NURSE ---
Shift Events: Patient rested quietly throughout night. Patient did have increased oxygen demands and is currently on high flow nasal cannula on 8 liters. No c/o pain. Good urine output. All other VSS.
[2020-06-19 07:30] LABS: Glucose Point of Care 95 mg/dL (70-110)
[2020-06-19 09:03] LABS: Fibrinogen 375 mg/dL (174-498)
[2020-06-19] MEDS: sodium chloride 1 gm Tablet PO ×3 (09:08→20:11)
[2020-06-19] MEDS: levothyroxine 50 mcg Tablet PO (09:08)
[2020-06-19] MEDS: lisinopril 5 mg Tablet PO (09:08)
[2020-06-19] MEDS: pantoprazole DR 40 mg Tablet PO (09:13)
[2020-06-19] MEDS: ferrous gluconate 324 mg Tablet PO ×2 (09:13→17:06)
[2020-06-19] MEDS: zinc gluconate 50 mg Tablet PO (09:13)
[2020-06-19] MEDS: aspirin 81 mg EC Tablet PO (09:13)
[2020-06-19] MEDS: gabapentin 300 mg Capsule PO ×3 (09:13→20:10)
[2020-06-19] MEDS: ascorbic acid 500 mg Tablet PO (09:13)
[2020-06-19] MEDS: tamsulosin 0.4 mg Capsule PO (09:13)
[2020-06-19] MEDS: dexamethasone 4 mg/mL INJ 6 MG IVP (09:14)
[2020-06-19] MEDS: atorvastatin 40 mg Tablet 20 MG PO (09:14)
[2020-06-19] MEDS: benzonatate 100 mg Capsule PO ×3 (09:17→20:10)
[2020-06-19 11:03] LABS: Glucose Point of Care 165 mg/dL (70-110)
[2020-06-19 16:23] LABS: Glucose Point of Care 236 mg/dL (70-110)
--- NOTE | 2020-06-19 17:11 | PM.PN ---
Subjective Subjective: Interval history: Has now completed 5-day course of remdesevir, on 8 L HFNC. Intermittent hypotension, had a temperature of 100.9 F yesterday evening, afebrile since. Noted repeat CXR findings. Stable inflammatory markers. Medications: Reviewed: Yes Medication Review Details: Active Medications Generic Name Dose Route Start Last Admin Trade Name Freq PRN Reason Stop Dose Admin Acetaminophen 650 mg 06/14/20 18:35 06/18/20 20:21 Tylenol PO 650 mg Q6H PRN Administration Mild/Mod Pain Or Temp >/= 101 Albuterol Sulfate 2 puff 06/15/20 07:05 Ventolin INHALATION Q4H.RESPIRATORY P RN SHORTNESS OF MAN TH Ascorbic Acid 500 mg 06/15/20 09:00 06/19/20 09:13 Vitamin C PO 500 mg DAILY DINA Administration Aspirin 81 mg 06/15/20 09:00 06/19/20 09:13 Aspirin Ec PO 81 mg DAILY DINA Administration Atorvastatin Calci um 20 mg 06/15/20 09:00 06/19/20 09:14 Lipitor PO 20 mg DAILY DINA Administration Azithromycin 500 mg 06/19/20 17:15 Zithromax PO DAILY DINA Protocol Benzonatate 100 mg 06/14/20 21:00 06/19/20 15:07 Tessalon Pearls PO 100 mg TID DINA Administration Bisacodyl 10 mg 06/14/20 18:35 Dulcolax PO DAILY PRN CONSTIPATION Dexamethasone 6 mg 06/15/20 09:00 06/19/20 09:14 Decadron IVP 6 mg Q24H DINA Administration Dextrose 25 ml 06/14/20 17:44 D50w IVP ONCE PRN hypoglycemia prot ocol Protocol Dextrose 50 ml 06/14/20 17:44 D50w IVP PRN PRN hypoglycemia prot ocol Protocol Ferrous Gluconate 324 mg 06/14/20 18:00 06/19/20 17:06 Ferrous Gluconat e PO 324 mg BIDWM DINA Administration Gabapentin 300 mg 06/14/20 21:00 06/19/20 15:07 Neurontin PO 300 mg TID DINA Administration Glucagon 1 mg 06/14/20 17:44 Glucagen IM ONCE PRN Adult Acute Hypog lycemia Prot. Protocol Dextrose 500 mls @ 100 mls /hr 06/14/20 17:44 D5w IV ONCE PRN Adult Acute Hypog lycemia Prot Protocol Insulin Aspart 0 unit 06/14/20 18:00 06/19/20 16:28 Novolog SUBCUT 8 unit WM&BEDTIME DINA Administration Protocol Lactulose 10 gm 06/14/20 18:35 Constulose PO DAILY PRN CONSTIPA Levothyroxine Sodi um 50 mcg 06/16/20 09:00 06/19/20 09:08 Synthroid PO 50 mcg DAILY DINA Administration Lisinopril 5 mg 06/17/20 09:00 06/19/20 09:08 Prinivil PO 5 mg DAILY DINA Administration Ondansetron HCl 4 mg 06/14/20 18:35 Zofran IVP Q8H PRN vomiting, or N/V if npo Pantoprazole Sodiu m 40 mg 06/15/20 09:00 06/19/20 09:13 Protonix PO 40 mg DAILY DINA Administration Fluticasone/Salmet cherry 1 puff 06/14/20 20:00 06/19/20 11:05 Advair Diskus 25 0-50 INHALATION 1 puff BID.RESPIRATORY S CH Administration Sodium Chloride 1 gm 06/18/20 15:00 06/19/20 15:05 Salt Tab PO 1 gm TID DINA Administration Tamsulosin HCl 0.4 mg 06/15/20 09:00 06/19/20 09:13 Flomax PO 0.4 mg DAILY DINA Administration Tiotropium [place] 18 mcg 06/15/20 08:00 06/19/20 11:06 Spiriva INHALATION 1 puff DAILY.RESPIRATORY DINA Administration Zinc Gluconate 50 mg 06/15/20 09:00 06/19/20 09:13 Zinc Gluconate PO 50 mg DAILY DINA Administration No Known Allergies Allergy (Verified 06/14/20 13:46) Vitals/I&O/Wt Last Vital Signs Temp 98.5 F 06/19/20 16:00 Pulse 64 06/19/20 16:00 Resp 18 06/19/20 16:00 BP 112/69 06/19/20 16:00 Pulse Ox 93 06/19/20 16:00 06/19/20 06/19/20 06/19/20 06:59 14:59 22:59 Intake Total 400 / 1386 940 / 940 480 / 1420 Output Total 200 / 1520 500 / 500 500 / 1000 Balance 200 / -134 440 / 440 -20 / 420 Weight last 48 hrs Weight 66.814 kg Weight 66.82 kg Physical Exam Const: COMMON NORMALS: no acute distress, patient oriented x3 and alert GENERAL APPEARANCE: cooperative, comfortable and appears older than stated age NUTRITIONAL APPEARANCE: thin ORIENTATION/CONSCIOUSNESS: Yes awake OTHER: -appears fatigued though less so today HENMT: COMMON NORMALS: normocephalic, atraumatic, hearing grossly normal bilaterally and moist oral mucous membranes HEAD & SCALP: normocephalic and atraumatic Eye: COMMON NORMALS: Equal, round and reactive pupils present, EOMs intact bilaterally and conjunctivae normal CONJUNCTIVA: Yes conjunctivae normal PUPIL: Yes Equal, round and reactive pupils present Neck/C-Spine: COMMON NORMALS: full ROM GENERAL: Yes normal visual inspection and Yes trachea midline Resp: COMMON NORMALS: normal respiratory effort, No retractions and No use of accessory muscles EFFORT & INSPECTION: Yes able to speak in complete sentences, Yes symmetric chest movement and Yes tachypneic AUSCULTATION: rales and diminished lung sounds OTHER: -on 8 L high flow NC Cardio: COMMON NORMALS: regular rate, regular rhythm, S1 normal heart sound present, S2 normal heart sound present and No murmurs present (Cardio) RATE: regular rate RHYTHM: regular rhythm HEART SOUNDS: S1 normal heart sound present and S2 normal heart sound present GI: COMMON NORMALS: Normal to inspection, nondistended, normoactive bowel sounds present, Soft to palpation and non-tender PALPATION: Yes Soft to palpation Extremity: COMMON NORMALS: no clubbing, cyanosis or edema and no pedal edema GENERAL: Yes amputation (s/p R BKA) Neuro: COMMON NORMALS: patient oriented x3, moves all extremities, no focal motor deficits and no sensory deficits noted SENSORIUM/ORIENTATION: Yes alert Psych: COMMON NORMALS: mental status grossly normal, Normal thought process present, cooperative and speech normal SPEECH: Yes normal speech MOOD & AFFECT: Yes Flat affect present THOUGHT PROCESS: Normal thought process present Skin: COMMON NORMALS: no rashes or lesions noted, no jaundice, no petechiae and no mottling GENERAL SKIN EXAM: no rashes or lesions noted Data : 06/18/20 04:00 06/19/20 04:20 A&P Assessment and plan (1) COVID-19: -Noted to be COVID-19 positive, associated hypoxia with noted increased oxygen requirement, now up to 8 L high flow nasal cannula -s/p 5-day course of Remdesevir -Continue supportive treatment with zinc, vitamin C, dexamethasone, inhaler treatments, antitussives -Close monitoring of respiratory status -Wean oxygen requirement as tolerated, home oxygen evaluation prior to discharge if appropriate -Telemetry monitoring -Noted overall downward trend in inflammatory markers, continue to monitor -Imaging noted -Negative MRSA, Legionella, bacterial antigens -blood cx: prelim negative -restart azithromycin in light of CXR findings, low grade temp, continued high oxygen requirement -Pulmonary toilet, incentive spirometry Status: Acute (2) Hypoxia: -Secondary to acute COVID-19 infection as noted above Status: Acute (3) Pneumonia due to COVID-19 virus: -As noted above Status: Acute (4) Hyponatremia: -Continue to trend sodium levels -Continue supplementation p.o. Status: Acute (5) PVD (peripheral vascular disease): Status: Chronic (6) Hyperlipemia, mixed: -on statin Status: Chronic (7) Type 2 diabetes mellitus with complication, without long-term current use of insulin: -A1c at goal-6.2 -Accuchecks, ISS, hypoglycemia precautions -consistent carb diet as tolerated Status: Chronic (8) GERD (gastroesophageal reflux disease): -on PPI Status: Chronic Qualifiers: Esophagitis presence: without esophagitis Qualified Code(s): K21.9 - Gastro-esophageal reflux disease without esophagitis (9) Hypothyroidism: -Noted elevated TSH, normal free T4 -Continue levothyroxine Status: Acute Qualifiers: Hypothyroidism type: unspecified Qualified Code(s): E03.9 - Hypothyroidism, unspecified Additional A&P Information -hx of CAD s/p CABG: Echo-EF=35-40%, moderate global hypokinesis, trace MR, no evidence of pulmonary HTN. Continue ASA, statin -hx of PE; no AC due to hx of GI bleed -hx of cardiomyopathy, systolic CHF; no acute exacerbation -hx of HTN; continue to monitor vital signs, hold ACEi due to intermittent hypotension -BPH; on tamsulosin -GI ppx with PPI -DVT ppx with lovenox -Dispo: home, lives with -Code status: FULL code Attestations Medical Necessity Statement*: Patient requires hospitalization for continued treatment of COVID-19 infection, pneumonia, with continued high oxygen requirement. Time Spent in Patient Care: 16 - 35 minutes (>than 50% of time spent in counselling and/or direct pt care on unit). Coding Level of Care Code Acute Manager Account Management for Chg Fwd Diagnoses COVID-19 U07.1 Hypoxia R09.02 Pneumonia due to COVID-19 virus U07.1; J12.89 Hyponatremia E87.1 PVD (peripheral vascular disease) I73.9 Hyperlipemia, mixed E78.2 Type 2 diabetes mellitus with complication, without long-term current use of insulin E11.8 GERD (gastroesophageal reflux disease) K21.9 Esophagitis presence: without esophagitis Hypothyroidism E03.9 Hypothyroidism type: unspecified
--- NOTE | 2020-06-19 17:18 | DCPLANNER ---
Pg 2 of IM updated and reviewed with Pt's Spouse; Pat via the phone. No questions. She appreciates the call.
[2020-06-19] MEDS: azithromycin 250 mg Tablet 500 MG PO (17:30)
[2020-06-19 20:37] LABS: Glucose Point of Care 116 mg/dL (70-110)
[2020-06-20] VITALS (26 sets, daily range): BP systolic 94–131; BP diastolic 48–75; PULSE 59–89; RESP 14–34; TEMP 36.5–37.2; O2SAT 88–99
[2020-06-20 05:21] LABS: Hematocrit 41.6 % (42.0-52.0); Hemoglobin 13.8 g/dL (11.7-16.6); Lymphocytes # 0.4 10^3/uL (0.8-4.8); Lymphocytes % 6.5 %; Mean Corpuscular HGB Conc 33.2 g/dL (30.0-36.0); Mean Corpuscular Hemoglobin 29.5 pg (28.0-34.0); Mean Corpuscular Volume 88.9 fL (80-94); Mean Platelet Volume 11.2 fL (7.4-10.4); Monocytes # 0.4 10^3/uL (0.2-0.9); Monocytes % 6.7 %; Neutrophils # 5.67 10^3/uL (1.8-7.7); Nucleated Red Blood Cells % 0 %; Platelet Count 263 10^3/cmm (130-400); Red Blood Count 4.68 10^6/uL (4.1-5.3); Red Cell Distribution Width 14.3 % (12.1-15.1); White Blood Count 6.6 10^3/uL (4.0-10.0)
[2020-06-20 05:50] LABS: Alanine Aminotransferase 30 U/L (0-41); Albumin Level 3.2 g/dL (3.5-5.2); Alkaline Phosphatase 66 IU/L (40-130); Anion Gap 15.3 (5-19); Aspartate Amino Transferase 24 U/L (0-40); Blood Urea Nitrogen 20 mg/dL (8-23); C Reactive Protein 81.7 mg/L (0.0-4.9); Calcium 8.3 mg/dL (8.5-10.5); Carbon Dioxide 22 mmol/L (22-29); Chloride 99 mmol/L (98-107); Ferritin 573 ng/mL (30-400); Globulin 2.9 g/dL (1.3-4.6); Glucose 146 mg/dL (65-115); Osmolality Calculated 279 mOsm/kg (285-295); Potassium 4.3 mmol/L (3.5-5.1); Sodium 132 mmol/L (136-145); Total Bilirubin 0.4 mg/dL (0.15-1.2); Total Protein 6.1 g/dL (6.6-8.7)
[2020-06-20 06:36] LABS: Lactate Dehydrogenase 222 U/L (135-225)
--- NOTE | 2020-06-20 07:06 | PC.NURSE ---
Shift Summary: Patient was able to rest well overnight. 900 u/o 8L NC No major events overnight. No needs at this time. Report given to Talib VERA.
[2020-06-20 07:35] LABS: Glucose Point of Care 128 mg/dL (70-110)
[2020-06-20] MEDS: sodium chloride 1 gm Tablet PO ×3 (07:54→21:36)
[2020-06-20] MEDS: levothyroxine 50 mcg Tablet PO (07:54)
[2020-06-20] MEDS: ferrous gluconate 324 mg Tablet PO ×2 (08:01→18:12)
[2020-06-20] MEDS: tamsulosin 0.4 mg Capsule PO (08:01)
[2020-06-20] MEDS: gabapentin 300 mg Capsule PO ×3 (08:01→21:36)
[2020-06-20] MEDS: zinc gluconate 50 mg Tablet PO (08:02)
[2020-06-20] MEDS: dexamethasone 4 mg/mL INJ 6 MG IVP (08:02)
[2020-06-20] MEDS: ascorbic acid 500 mg Tablet PO (08:02)
[2020-06-20] MEDS: benzonatate 100 mg Capsule PO ×3 (08:02→21:36)
[2020-06-20] MEDS: pantoprazole DR 40 mg Tablet PO (08:02)
[2020-06-20] MEDS: aspirin 81 mg EC Tablet PO (08:02)
[2020-06-20] MEDS: atorvastatin 40 mg Tablet 20 MG PO (08:02)
[2020-06-20 08:09] LABS: D Dimer 2.83 ug/mIFEU (0-0.59)
[2020-06-20 10:55] LABS: Fibrinogen 239 mg/dL (174-498)
[2020-06-20 11:23] LABS: Glucose Point of Care 301 mg/dL (70-110)
--- NOTE | 2020-06-20 14:14 | P.PN_ITS ---
Subjective Subjective: Interval history: Patient sitting in a chair by bedside, seems to be in good spirits, did well with physical therapy, oxygen requirement down to 3 L HFNC. Had 900 mL urine output overnight. Hoping he gets to go home tomorrow. Medications: Reviewed: Yes Medication Review Details: Active Medications Generic Name Dose Route Start Last Admin Trade Name Freq PRN Reason Stop Dose Admin Acetaminophen 650 mg 06/14/20 18:35 06/18/20 20:21 Tylenol PO 650 mg Q6H PRN Administration Mild/Mod Pain Or Temp >/= 101 Albuterol Sulfate 2 puff 06/15/20 07:05 Ventolin INHALATION Q4H.RESPIRATORY P RN SHORTNESS OF MAN TH Ascorbic Acid 500 mg 06/15/20 09:00 06/20/20 08:02 Vitamin C PO 500 mg DAILY DINA Administration Aspirin 81 mg 06/15/20 09:00 06/20/20 08:02 Aspirin Ec PO 81 mg DAILY DINA Administration Atorvastatin Calci um 20 mg 06/15/20 09:00 06/20/20 08:02 Lipitor PO 20 mg DAILY DINA Administration Azithromycin 500 mg 06/19/20 18:00 06/19/20 17:30 Zithromax PO 500 mg Q24H DINA Administration Protocol Benzonatate 100 mg 06/14/20 21:00 06/20/20 08:02 Tessalon Pearls PO 100 mg TID DINA Administration Bisacodyl 10 mg 06/14/20 18:35 Dulcolax PO DAILY PRN CONSTIPATION Dexamethasone 6 mg 06/15/20 09:00 06/20/20 08:02 Decadron IVP 6 mg Q24H DINA Administration Dextrose 25 ml 06/14/20 17:44 D50w IVP ONCE PRN hypoglycemia prot ocol Protocol Dextrose 50 ml 06/14/20 17:44 D50w IVP PRN PRN hypoglycemia prot ocol Protocol Ferrous Gluconate 324 mg 06/14/20 18:00 06/20/20 08:01 Ferrous Gluconat e PO 324 mg BIDWM DINA Administration Gabapentin 300 mg 06/14/20 21:00 06/20/20 08:01 Neurontin PO 300 mg TID DINA Administration Glucagon 1 mg 06/14/20 17:44 Glucagen IM ONCE PRN Adult Acute Hypog lycemia Prot. Protocol Dextrose 500 mls @ 100 mls /hr 06/14/20 17:44 D5w IV ONCE PRN Adult Acute Hypog lycemia Prot Protocol Insulin Aspart 0 unit 06/14/20 18:00 06/20/20 11:28 Novolog SUBCUT 12 unit WM&BEDTIME DINA Administration Protocol Lactulose 10 gm 06/14/20 18:35 Constulose PO DAILY PRN CONSTIPA Levothyroxine Sodi um 50 mcg 06/16/20 09:00 06/20/20 07:54 Synthroid PO 50 mcg DAILY DINA Administration Lisinopril 5 mg 06/17/20 09:00 06/19/20 09:08 Prinivil PO 5 mg DAILY DINA Administration Ondansetron HCl 4 mg 06/14/20 18:35 Zofran IVP Q8H PRN vomiting, or N/V if npo Pantoprazole Sodiu m 40 mg 06/15/20 09:00 06/20/20 08:02 Protonix PO 40 mg DAILY DINA Administration Fluticasone/Salmet cherry 1 puff 06/14/20 20:00 06/20/20 08:59 Advair Diskus 25 0-50 INHALATION 1 puff BID.RESPIRATORY S CH Administration Sodium Chloride 1 gm 06/18/20 15:00 06/20/20 07:54 Salt Tab PO 1 gm TID DINA Administration Tamsulosin HCl 0.4 mg 06/15/20 09:00 06/20/20 08:01 Flomax PO 0.4 mg DAILY DINA Administration Tiotropium [place] 18 mcg 06/15/20 08:00 06/20/20 08:59 Spiriva INHALATION 1 puff DAILY.RESPIRATORY DINA Administration Zinc Gluconate 50 mg 06/15/20 09:00 06/20/20 08:02 Zinc Gluconate PO 50 mg DAILY DINA Administration No Known Allergies Allergy (Verified 06/14/20 13:46) Vitals/I&O/Wt Last Vital Signs Temp 98.4 F 06/20/20 11:38 Pulse 79 06/20/20 12:57 Resp 20 H 06/20/20 12:57 BP 122/65 06/20/20 12:00 Pulse Ox 94 06/20/20 12:57 06/19/20 06/20/20 06/20/20 22:59 06:59 14:59 Intake Total 920 / 1860 500 / 2360 840 / 840 Output Total 1000 / 1500 575 / 2075 575 / 575 Balance -80 / 360 -75 / 285 265 / 265 Weight last 48 hrs Weight 66.735 kg Weight 66.814 kg Physical Exam Const: COMMON NORMALS: no acute distress, patient oriented x3 and alert GENERAL APPEARANCE: cooperative, comfortable and appears older than stated age NUTRITIONAL APPEARANCE: thin ORIENTATION/CONSCIOUSNESS: Yes awake OTHER: -in good spirits HENMT: COMMON NORMALS: normocephalic, atraumatic, hearing grossly normal bilaterally and moist oral mucous membranes HEAD & SCALP: normocephalic and atraumatic Eye: COMMON NORMALS: Equal, round and reactive pupils present, EOMs intact bilaterally and conjunctivae normal CONJUNCTIVA: Yes conjunctivae normal PUPIL: Yes Equal, round and reactive pupils present Neck/C-Spine: COMMON NORMALS: full ROM GENERAL: Yes normal visual inspection and Yes trachea midline Resp: COMMON NORMALS: normal respiratory effort, No retractions and No use of accessory muscles EFFORT & INSPECTION: Yes able to speak in complete sentences, Yes symmetric chest movement and Yes tachypneic AUSCULTATION: rales and diminished lung sounds OTHER: -on 3 L high flow NC Cardio: COMMON NORMALS: regular rate, regular rhythm, S1 normal heart sound present, S2 normal heart sound present and No murmurs present (Cardio) RATE: regular rate RHYTHM: regular rhythm HEART SOUNDS: S1 normal heart sound present and S2 normal heart sound present GI: COMMON NORMALS: Normal to inspection, nondistended, normoactive bowel sounds present, Soft to palpation and non-tender PALPATION: Yes Soft to palpation Extremity: COMMON NORMALS: no clubbing, cyanosis or edema and no pedal edema GENERAL: Yes amputation (s/p R BKA) Neuro: COMMON NORMALS: patient oriented x3, moves all extremities, no focal motor deficits and no sensory deficits noted SENSORIUM/ORIENTATION: Yes alert Psych: COMMON NORMALS: mental status grossly normal, Normal thought process present, cooperative and speech normal SPEECH: Yes normal speech MOOD & AFFECT: Yes Flat affect present THOUGHT PROCESS: Normal thought process present Skin: COMMON NORMALS: no rashes or lesions noted, no jaundice, no petechiae and no mottling GENERAL SKIN EXAM: no rashes or lesions noted Data : 06/20/20 04:30 06/20/20 04:30 Micro: Microbiology 06/14/20 18:50 Blood Culture - Final Blood NO GROWTH AFTER 5 DAYS 06/14/20 18:50 Blood Culture - Final Blood NO GROWTH AFTER 5 DAYS A&P Assessment and plan (1) COVID-19: -Noted to be COVID-19 positive, associated hypoxia with noted increased oxygen requirement, now down to 3L high flow nasal cannula -s/p 5-day course of Remdesevir -Continue supportive treatment with zinc, vitamin C, dexamethasone, inhaler treatments, antitussives -Close monitoring of respiratory status -Wean oxygen requirement as tolerated, home oxygen evaluation prior to discharge if appropriate -Telemetry monitoring -Noted overall downward trend in inflammatory markers, continue to monitor -Imaging noted -Negative MRSA, Legionella, bacterial antigens -blood cx: prelim negative -restarted azithromycin in light of CXR findings, low grade temp, high oxygen requirement -Pulmonary toilet, incentive spirometry Status: Acute (2) Hypoxia: -Secondary to acute COVID-19 infection as noted above Status: Acute (3) Pneumonia due to COVID-19 virus: -As noted above Status: Acute (4) Hyponatremia: -Continue to trend sodium levels -Continue supplementation p.o. Status: Acute (5) PVD (peripheral vascular disease): Status: Chronic (6) Hyperlipemia, mixed: -on statin Status: Chronic (7) Type 2 diabetes mellitus with complication, without long-term current use of insulin: -A1c at goal-6.2 -Accuchecks, ISS, hypoglycemia precautions -consistent carb diet as tolerated Status: Chronic (8) GERD (gastroesophageal reflux disease): -on PPI Status: Chronic Qualifiers: Esophagitis presence: without esophagitis Qualified Code(s): K21.9 - Gastro-esophageal reflux disease without esophagitis (9) Hypothyroidism: -Noted elevated TSH, normal free T4 -Continue levothyroxine Status: Acute Qualifiers: Hypothyroidism type: unspecified Qualified Code(s): E03.9 - Hypothyroidism, unspecified Additional A&P Information -hx of CAD s/p CABG: Echo-EF=35-40%, moderate global hypokinesis, trace MR, no evidence of pulmonary HTN. Continue ASA, statin -hx of PE; no AC due to hx of GI bleed -hx of cardiomyopathy, systolic CHF; no acute exacerbation -hx of HTN; continue to monitor vital signs, hold ACEi due to intermittent hypotension -BPH; on tamsulosin -GI ppx with PPI -DVT ppx with lovenox -PT evaluation appreciated -Dispo: home, lives with -Code status: FULL code -anticipate discharge tomorrow if continued improvement. Spoke with Milka Espino ([phone]) per patient's request and updated her on his progress, treatment plan and possibility of discharge home tomorrow. She ind icates her excitement at having him home. Attestations Medical Necessity Statement*: Patient requires hospitalization for continued management of COVID-19 infection, clinically improving with decreasing oxygen requirement. Time Spent in Patient Care: 16 - 35 minutes (>than 50% of time spent in counselling and/or direct pt care on unit) . Coding Level of Care Code Acute Process Owner for Chg Fwd Diagnoses COVID-19 U07.1 Hypoxia R09.02 Pneumonia due to COVID-19 virus U07.1; J12.89 Hyponatremia E87.1 PVD (peripheral vascular disease) I73.9 Hyperlipemia, mixed E78.2 Type 2 diabetes mellitus with complication, without long-term current use of insulin E11.8 GERD (gastroesophageal reflux disease) K21.9 Esophagitis presence: without esophagitis Hypothyroidism E03.9 Hypothyroidism type: unspecified
[2020-06-20 15:59] LABS: Glucose Point of Care 394 mg/dL (70-110)
[2020-06-20] MEDS: azithromycin 250 mg Tablet 500 MG PO (18:12)
[2020-06-20 20:48] LABS: Glucose Point of Care 206 mg/dL (70-110)
[2020-06-21] VITALS (15 sets, daily range): BP systolic 102–142; BP diastolic 43–71; PULSE 53–84; RESP 15–28; TEMP 36.6–37.4; O2SAT 83–95
[2020-06-21 07:36] LABS: Glucose Point of Care 97 mg/dL (70-110)
[2020-06-21] MEDS: sodium chloride 1 gm Tablet PO (08:55)
[2020-06-21] MEDS: levothyroxine 50 mcg Tablet PO (08:55)
[2020-06-21] MEDS: pantoprazole DR 40 mg Tablet PO (08:57)
[2020-06-21] MEDS: benzonatate 100 mg Capsule PO (08:57)
[2020-06-21] MEDS: aspirin 81 mg EC Tablet PO (08:57)
[2020-06-21] MEDS: atorvastatin 40 mg Tablet 20 MG PO (08:57)
[2020-06-21] MEDS: zinc gluconate 50 mg Tablet PO (08:57)
[2020-06-21] MEDS: tamsulosin 0.4 mg Capsule PO (08:57)
[2020-06-21] MEDS: ferrous gluconate 324 mg Tablet PO (08:57)
[2020-06-21] MEDS: gabapentin 300 mg Capsule PO (08:57)
[2020-06-21] MEDS: dexamethasone 4 mg/mL INJ 6 MG IVP (08:57)
[2020-06-21] MEDS: ascorbic acid 500 mg Tablet PO (08:57)
--- NOTE | 2020-06-21 10:17 | P.DS_ITS ---
Discharge Providers Date of Admission: 06/14/20 17:11 Date of Discharge: June 21, 2020 Attending Provider at Admission: John Joya MD Attending Provider at Discharge: Jennifer Kaur MD Consults: None Primary Care Provider: ANNE MARIE Beverly Diagnoses at Discharge Discharge Diagnosis (1) COVID-19: Status: Acute Problem details: -Noted to be COVID-19 positive, associated hypoxia with noted increased oxygen requirement, now down to 3L high flow nasal cannula -s/p 5-day course of Remdesevir -Continue supportive treatment with zinc, vitamin C, dexamethasone, inhaler treatments, antitussives -Close monitoring of respiratory status -Wean oxygen requirement as tolerated, home oxygen evaluation prior to discharge -Telemetry monitoring -Noted overall downward trend in inflammatory markers, continue to monitor -Imaging noted -Negative MRSA, Legionella, bacterial antigens -blood cx: prelim negative -restarted azithromycin in light of CXR findings, low grade temp, high oxygen requirement -Pulmonary toilet, incentive spirometry (2) Hypoxia: Status: Acute Problem details: -Secondary to acute COVID-19 infection as noted above (3) Pneumonia due to COVID-19 virus: Status: Acute (4) Hyponatremia: Status: Acute (5) PVD (peripheral vascular disease): Status: Chronic (6) Hyperlipemia, mixed: Status: Chronic (7) Type 2 diabetes mellitus with complication, without long-term current use of insulin: Status: Chronic Problem details: -A1c at goal-6.2 -Accuchecks, ISS, hypoglycemia precautions -consistent carb diet as tolerated (8) GERD (gastroesophageal reflux disease): Status: Chronic Qualifiers: Esophagitis presence: without esophagitis Qualified Code(s): K21.9 - Gastro-esophageal reflux disease without esophagitis (9) Hypothyroidism: Status: Acute Problem details: -Noted elevated TSH, normal free T4 -Continue levothyroxine Qualifiers: Hypothyroidism type: unspecified Qualified Code(s): E03.9 - Hypothyroidism, unspecified Other Information Additional DC diagnoses/information: -hx of CAD s/p CABG: Echo-EF=35-40%, moderate global hypokinesis, trace MR, no evidence of pulmonary HTN. Continue ASA, statin -hx of PE; no AC due to hx of GI bleed -hx of cardiomyopathy, systolic CHF; no acute exacerbation -hx of HTN; continue to monitor vital signs, hold ACEi due to intermittent hy potension -BPH; on tamsulosin Reason for Visit Reason for Visit: COVID POSITIVE, SOB, COUGH,TEMP Hospital Course Hospital Course: Patient was admitted to the viral ICU secondary to having been found positive for COVID-19 infection. Due to associated hypoxia and high oxygen requirement he was started on treatment with remdesevir of which he has completed a 5-day course; in addition to supportive care including IV steroids, zinc, vitamin C, breathing treatments as needed. Blood cultures have been negative, and inflammatory markers have gradually been trending down. He was noted to have findings associated with pneumonia and was covered empirically with azithromycin. With continued treatment oxygen requirement has decreased and he is currently stable on 2 to 3 L nasal cannula. He is not oxygen dependent at baseline so home oxygen evaluation has been done prior to discharge and appropriately arranged. Symptomatically he feels much better and feels ready to go home today. He will need follow-up with his primary care provider. We have discussed need to continue to monitor his symptoms particularly in terms of cough, shortness of breath in addition to oxygen levels, heart rate and blood pressure if possible. He is to continue frequent handwashing, social distancing and mask wearing, as well as continued self isolation precautions. I have reviewed all of this with his as well. He was quite weak on initial admission but has gradually become stronger and has worked well with physical therapy. Physical Exam Const: COMMON NORMALS: no acute distress, patient oriented x3 and alert GENERAL APPEARANCE: cooperative, comfortable and appears older than stated age NUTRITIONAL APPEARANCE: thin ORIENTATION/CONSCIOUSNESS: Yes awake OTHER: -in good spirits HENMT: COMMON NORMALS: normocephalic, atraumatic, hearing grossly normal bilaterally and moist oral mucous membranes HEAD & SCALP: normocephalic and atraumatic Eye: COMMON NORMALS: Equal, round and reactive pupils present, EOMs intact bilaterally and conjunctivae normal CONJUNCTIVA: Yes conjunctivae normal PUPIL: Yes Equal, round and reactive pupils present Neck/C-Spine: COMMON NORMALS: full ROM GENERAL: Yes normal visual inspection and Yes trachea midline Resp: COMMON NORMALS: normal respiratory effort, No retractions and No use of accessory muscles EFFORT & INSPECTION: Yes able to speak in complete sentences, Yes symmetric chest movement and Yes tachypneic AUSCULTATION: rales and diminished lung sounds OTHER: -on 3 L NC Cardio: COMMON NORMALS: regular rate, regular rhythm, S1 normal heart sound present, S2 normal heart sound present and No murmurs present (Cardio) RATE: regular rate RHYTHM: regular rhythm HEART SOUNDS: S1 normal heart sound present and S2 normal heart sound present GI: COMMON NORMALS: Normal to inspection, nondistended, normoactive bowel sounds present, Soft to palpation and non-tender PALPATION: Yes Soft to palpation Extremity: COMMON NORMALS: no clubbing, cyanosis or edema and no pedal edema GENERAL: Yes amputation (s/p R BKA) Neuro: COMMON NORMALS: patient oriented x3, moves all extremities, no focal motor deficits and no sensory deficits noted SENSORIUM/ORIENTATION: Yes alert Psych: COMMON NORMALS: mental status grossly normal, Normal thought process present, cooperative and speech normal SPEECH: Yes normal speech MOOD & AFFECT: Yes Flat affect present THOUGHT PROCESS: Normal thought process present Skin: COMMON NORMALS: no rashes or lesions noted, no jaundice, no petechiae and no mottling GENERAL SKIN EXAM: no rashes or lesions noted Discharge Data Data Completed and Pending: Completed Studies During Hospitalization Category Date Time Status CT angio chest PE protcl 29058 Urge nt Cat Scan 06/14/20 13:27 Completed XR chest 1V carolee ble 90717 Q48H Exams 06/15/20 06:00 Completed XR chest 1V carolee ble 12628 Q48H Exams 06/17/20 06:00 Completed XR chest 1V carolee ble 61110 Q48H Exams 06/19/20 06:00 Completed XR chest 1V carolee ble 81090 Stat Exams 06/14/20 12:08 Completed CV echo complete* 33413 Routine Ultrasound 06/15/20 17:35 Completed Labs from last 24 hours 06/21/20 06/20/20 06/20/20 07:24 20:28 15:44 Fibrinogen POC Glucose 97 206 394 06/20/20 06/20/20 11:13 04:30 Fibrinogen 239 POC Glucose 301 Vitals: Last Vital Signs Temp 97.8 F 06/21/20 08:00 Pulse 60 06/21/20 04:00 Resp 18 06/21/20 04:00 BP 142/67 06/21/20 04:00 Pulse Ox 94 06/21/20 04:00 Discharge Plan Discharge Patient Disposition: Home Condition: Stable Prescriptions: New Advair Diskus 250-50 mcg/dose Blister With Device 1 puff inhalation BID.RESPIRATORY Qty: 1 RF: 0 azithromycin 250 mg Tablet 500 mg PO Q24H 5 Days Qty: 10 RF: 0 sodium chloride 1 gram Tablet 1 g PO TID 30 Days Qty: 90 RF: 0 Vitamin C 500 mg Tablet 500 mg PO DAILY Qty: 30 RF: 0 levothyroxine 50 mcg Tablet 50 mcg PO DAILY 30 Days Qty: 30 RF: 0 zinc gluconate 50 mg Tablet 50 mg PO DAILY Qty: 30 RF: 0 Spiriva with HandiHaler 18 mcg Capsule, W/Inhalation Device 18 mcg inhalation DAILY.RESPIRATORY Qty: 1 RF: 0 ferrous gluconate 324 mg (37.5 mg iron) Tablet 324 mg PO BIDWM 30 Days Qty: 60 RF: 0 Ventolin HFA 90 mcg/actuation Hfa Aerosol Inhaler 2 puff inhalation Q4H.RESPIRATORY PRN (Reason: Shortness Of Breath) Qty: 18 RF: 0 prednisone 10 mg tablet See Rx Instructions .ROUTE .COMPLEX 12 Days Qty: 30 RF: 0 Continued ramipril 2.5 mg capsule 2.5 mg PO DAILY RF: 0 aspirin 81 mg tablet,delayed release (DR/EC) 81 mg PO DAILY RF: 0 (DME) Diabetic Shoes Qty: 1 RF: 0 alendronate [Fosamax] 70 mg tablet 70 mg PO .Q 7 DAYS Qty: 12 RF: 1 tamsulosin [Flomax] 0.4 mg capsule 0.4 mg PO DAILY Qty: 90 RF: 0 glipizide 5 mg tablet See Rx Instructions .ROUTE .COMPLEX Qty: 45 RF: 0 lancets [OneTouch Delica Plus Lancet] 30 gauge misc See Rx Instructions .ROUTE .COMPLEX Qty: 100 RF: 0 (DME) Blood Glucose Test Strip See Rx Instructions .ROUTE .MEDSUPPLY Qty: 10 RF: 0 gabapentin 300 mg capsule 300 mg PO TID Qty: 270 RF: 0 simvastatin 40 mg tablet 40 mg PO DAILY RF: 0 omeprazole 20 mg capsule,delayed release(DR/EC) 20 mg PO BID RF: 0 Discontinued dexamethasone 6 mg tablet 6 mg PO DAILY Qty: 5 RF: 0 Discharge Orders: Discharge Order (Routine); Ordered 06/21/20 Ordered By: Jennifer Kaur Other Ambulatory Orders: DME: Oxygen (Order) Location: None Selected Ordered By: Jennifer Kaur DME: Oxygen (Order) Location: None Selected Ordered By: Jennifer Kaur Referrals: Dulce Maria Alonzo FNP [Primary Care Provider] - 4-7 days (Post-hospital discharge follow up. Treated for COVID-19 pneumonia. ) Discharge Diet: Cardiac Discharge Activity: Increase activity as tolerated and Oxygen as instructed Patient Instructions: Viral Pneumonia (DC) Activity Restrictions/Additional Instructions: -Due to being positive for COVID-19, you will need to continue self isolation precautions, frequent handwashing, maintaining social distancing and wearing a mask -Please continue to monitor your symptoms at home particularly in terms of s hortness of breath, cough, fever -Please continue to monitor your oxygen levels, temperature. Should you develop persistently low levels of oxygen, fever, or otherwise worsening symptoms; please seek medical attention immediately -Please note that you have been provided with additional material on continued care, treatment and information on donating convalescent plasma. Discharge Attestations Time Spent in Discharge Care*: greater than 30 min Specific Discharge Activities: Specific discharge activities: educating patient, educating and/or supporting family/caregiver, discussing with disease case manager rn/social workers/dc planners, documenting/other paperwork and evaluating patient/reviewing data Status at Discharge: Cognitive status at discharge: cognitively intact , Behavioral status at discharge: cooperative and independent in ADL's , Functional status at discharge: other assisted ambulation (has prosthetic secondary to R BKA) Overall status at discharge: patient is progressing back to baseline Quality Metrics Clinical Quality Measures During this hospital stay, did patient experience: None Coding Level of Care Code Acute Enterprise Cloud Architect for [facility] Fwd Exam Comprehensive Diagnoses COVID-19 U07.1 Hypoxia R09.02 Pneumonia due to COVID-19 virus U07.1; J12.89 Hyponatremia E87.1 PVD (peripheral vascular disease) I73.9 Hyperlipemia, mixed E78.2 Type 2 diabetes mellitus with complication, without long-term current use of insulin E11.8 GERD (gastroesophageal reflux disease) K21.9 Esophagitis presence: without esophagitis Hypothyroidism E03.9 Hypothyroidism type: unspecified
[2020-06-21 10:47] LABS: Glucose Point of Care 203 mg/dL (70-110)
--- NOTE | 2020-06-21 12:44 | PC.SOCIAL ---
IMM Update Pg. 2 of IMM updated and reviewed with patient's over the phone. Verbalized understanding.
--- NOTE | 2020-06-26 15:39 | PC.SOCIAL ---
Spoke with since she indicates patient would have difficulty hearing. indicates patient is overall doing well. He does get short of breath on occasion and wears O2 when that occurs. He did get all of the medications per wifes report and is taking them. We discussed rinsing mouth out after inhaler use. We dicussed good hand hygiene and disinfecting home regularly is important. We discussed to wear a mask if he does have to go out but advise to stay home as long as symptomatic. verbalized understanding. We discussed importance of obtaining flu vaccine yearly and do so this year once able to leave home and to get PNA vaccine every 5 years. agreed and they are current with PNA and he will get flu shot soon. Did have a follow up appt by phone with PCP indicates that went well. She understands he will be weaker than normal and could be for extended period of time. indicates PCP also verbalized this information. Was encouraged to reach out to PCP should symptoms worsen or with any concerns. We discussed to take all medications prescribed. We discussed plasma donation in detail but does not think patient would want to do so. All questions answered and no concerns voiced.
== END 2020-06-21 13:53 | disposition home or self-care (01) | DRG 177 ==
LOC: ER 17:18 → ICU 17:33
PROVIDERS: Emergency Medicine; Admitting Provider Student in an Organized Health Care Education/Training Program; PCP Nurse Practitioner Family; Visit Provider Family Medicine
DX: U07.1 COVID-19 (principal); J12.89 Other viral pneumonia; E87.1 Hypo-osmolality and hyponatremia; I50.22 Chronic systolic (congestive) heart failure; I42.9 Cardiomyopathy, unspecified; E11.51 Type 2 diabetes mellitus with diabetic peripheral angiopathy without gangrene; K21.9 Gastro-esophageal reflux disease without esophagitis; Z86.711 Personal history of pulmonary embolism; N40.0 Benign prostatic hyperplasia without lower urinary tract symptoms; I11.0 Hypertensive heart disease with heart failure; Z95.1 Presence of aortocoronary bypass graft; I25.10 Atherosclerotic heart disease of native coronary artery without angina pectoris; E03.9 Hypothyroidism, unspecified; R09.02 Hypoxemia; Z79.82 Long term (current) use of aspirin; I95.9 Hypotension, unspecified; Z89.511 Acquired absence of right leg below knee; J44.9 Chronic obstructive pulmonary disease, unspecified; Z99.81 Dependence on supplemental oxygen; Z95.3 Presence of xenogenic heart valve; E78.2 Mixed hyperlipidemia; Z87.891 Personal history of nicotine dependence
CPT/HCPCS: 12345; 36415; 36416; 36600; 71045; 71275; 80053; 80061; 81001; 82436; 82550; 82728; 82803; 82962; 83036; 83540; 83550; 83605; 83615; 83735; 83880; 84100; 84133; 84145; 84300; 84439; 84443; 84481; 85025; 85378; 85384; 86140; 86403; 87040; 87449; 87641; 87804; 93005; 93306; 94640; 94664; 96372; 96375; 97110; 97161; 99283; J0456; J0696; J1100; J1815; J7030; J7040; J7050; Q0144; Q9967

== ENCOUNTER 2020-07-04 13:21 | Outpatient (CLI) | payer MEDICARE, MEDICAID, SELFPAY | END 2020-07-04 13:22 | disposition home or self-care (01) | LOC: WOUND 13:25 | PROVIDERS: PCP Nurse Practitioner Family; Visit Provider Thoracic Surgery (Cardiothoracic Vascular Surgery) | DX: E11.621 Type 2 diabetes mellitus with foot ulcer (principal); L97.528 Non-pressure chronic ulcer of other part of left foot with other specified severity | CPT/HCPCS: G0463; L3260 ==

== ENCOUNTER 2020-07-18 13:31 | Outpatient (CLI) | payer MEDICARE, MEDICAID, SELFPAY | END 2020-07-18 13:32 | disposition home or self-care (01) | LOC: WOUND 13:31 | PROVIDERS: PCP Nurse Practitioner Family; Visit Provider Thoracic Surgery (Cardiothoracic Vascular Surgery) | DX: E11.621 Type 2 diabetes mellitus with foot ulcer (principal); L97.521 Non-pressure chronic ulcer of other part of left foot limited to breakdown of skin | CPT/HCPCS: 11042 ==

== ENCOUNTER 2020-07-25 13:43 | Outpatient (CLI) | payer MEDICARE, MEDICAID, SELFPAY | END 2020-07-25 13:44 | disposition home or self-care (01) | LOC: WOUND 13:44 | PROVIDERS: PCP Nurse Practitioner Family; Visit Provider Thoracic Surgery (Cardiothoracic Vascular Surgery) | DX: E11.621 Type 2 diabetes mellitus with foot ulcer (principal); L97.521 Non-pressure chronic ulcer of other part of left foot limited to breakdown of skin | CPT/HCPCS: 11042 ==

== ENCOUNTER 2020-07-31 14:13 | Outpatient (CLI) | payer MEDICARE, SELFPAY | END 2020-07-31 14:14 | disposition home or self-care (01) | LOC: WOUND 14:15 | PROVIDERS: PCP Nurse Practitioner Family; Visit Provider Nurse Practitioner Family | DX: E11.621 Type 2 diabetes mellitus with foot ulcer (principal); L97.521 Non-pressure chronic ulcer of other part of left foot limited to breakdown of skin | CPT/HCPCS: 11042 ==

== ENCOUNTER 2020-08-14 13:43 | Outpatient (CLI) | payer MEDICARE, MEDICAID, SELFPAY ==
--- NOTE | 2020-08-14 | XR_ITS ---
WS: [id number] Left foot, 3 views, 08/14/2020 Clinical Data: PAIN REDNESS NON HEALING ULCER Comparison: None. Findings: No fractures or dislocations are seen. No bone destruction or erosion is noted. The joint spaces and soft tissues are normal. There is no evidence of osteomyelitis. There are calcifications in the bentley of small arteries which can indicate diabetes. XR/XR foot LT min 3V* [id number] Impression: Negative left foot.
== END 2020-08-14 13:44 | disposition home or self-care (01) ==
PROVIDERS: PCP Nurse Practitioner Family; Visit Provider Thoracic Surgery (Cardiothoracic Vascular Surgery)
DX: E11.621 Type 2 diabetes mellitus with foot ulcer (principal); M79.672 Pain in left foot; L97.521 Non-pressure chronic ulcer of other part of left foot limited to breakdown of skin
CPT/HCPCS: 73630; G0463

== ENCOUNTER 2020-08-22 13:05 | Outpatient (CLI) | payer MEDICARE, MEDICAID, SELFPAY | END 2020-08-22 13:06 | disposition home or self-care (01) | LOC: WOUND 13:05 | PROVIDERS: PCP Nurse Practitioner Family; Visit Provider Nurse Practitioner Family | DX: E11.621 Type 2 diabetes mellitus with foot ulcer (principal); L97.521 Non-pressure chronic ulcer of other part of left foot limited to breakdown of skin; E11.622 Type 2 diabetes mellitus with other skin ulcer; L98.492 Non-pressure chronic ulcer of skin of other sites with fat layer exposed | CPT/HCPCS: G0463 ==

== ENCOUNTER 2020-08-29 12:59 | Outpatient (CLI) | payer MEDICARE, MEDICAID, SELFPAY ==
--- NOTE | 2020-08-29 15:05 | PM.HP ---
Providers/Chief Complaint Primary Care Provider: ANNE MARIE Beverly History of Present Illness 80 year old male with past medical history of hypertension, hyperlipidemia, type 2 diabetes mellitus, right below-knee amputation( 2007 ) ,recent COVID PNA, COPD not on home oxygen, chronic smoker, severe peripheral arterial disease, chronic tobacco abuse with recurrent claudication with recent peripheral angiogram showing severe left SFA occlusion proximal to distal, popliteal artery disease for which he was recently referred to [place] vascular surgeon for possible bypass surgery, history of CABG, valve replacement.came is as a direct admit from wound care clinic for worsening lt 2nd toe gangrene. He was recently following Dr. Malcom Hernandez as an outpatient in [facility] and likely received several failed interventions for his severe lt L/E PVD.Records of which is not presently available. Based on wound care clinic note patient likely had some type of femoral distal bypass below the trifurcation, though not certain whether it was in situ's saphenous venous or prosthetic graft. Recent Doppler studies reveal biphasic signal distal to his most inferior incision, biphasic at the dorsalis pediss, and likely biphasic at the posterior tibial. Patient was being managed at the wound care clinic conservatively with poly MeM Ag , dry gauge and betadine. Today upon his arrival to the wound care clinic his second left toe has worsened and remained necrotic. Patient was sent to the hospital for possible amputation. Relevant prior imaging studies: CV guide vascular access: ( 03/02) Dorsalis pedis artery is identified and appears to be patent. CT angio abd aorta runof: 02/06 : Right BKA with occluded SFA to popliteal bypass graft. Popliteal artery is occluded. No significant runoff. Left superficial femoral artery is occluded at the origin.This remains occluded to the popliteal. Popliteal artery is occluded to the trifurcation with diminutive poor three-vessel runoff to the ankle. Labs have been ordered. Vitals reviewed. Review of Systems Const: Denies: fever(s), chills, body aches, change in appetite or diaphoresis Card: Denies: palpitations Resp: Denies: productive cough, wheezing or pain on inspiration GI: Denies: abdominal pain, nausea, vomiting, diarrhea or constipation : Denies: flank pain or difficulty urinating Musc: Denies: back pain Neuro: Denies: headache(s) or confusion Medications/Allergies Home Medications Medication Instructions Recorded Confirmed Last Taken Type aspirin 81 mg tablet,delayed 81 mg PO DAILY tab 09/08/19 08/27/20 06/14/20 History release ramipril 2.5 mg capsule 2.5 mg PO DAILY cap 09/08/19 08/27/20 06/14/20 History Diabetic Shoes #1 ea 11/21/19 08/27/20 Unknown Rx blood sugar diagnostic #10 each 03/25/20 08/27/20 Unknown History gabapentin 300 mg capsule 300 mg PO TID #270 cap 04/01/20 08/27/20 06/14/20 Rx omeprazole 20 mg PO BID 06/14/20 08/27/20 06/14/20 History albuterol sulfate [Ventolin HFA] 2 puff INHALATION Q4H.RESPIRATORY 06/20/20 08/27/20 Unknown Rx PRN #18 g ascorbic acid (vitamin C) [Vitamin 500 mg PO DAILY #30 tab 06/20/20 08/27/20 Unknown Rx C] fluticasone propion-salmeterol 1 puff INHALATION BID.RESPIRATORY 06/20/20 08/27/20 Unknown Rx [Advair Diskus] #1 ea tiotropium bromide [Spiriva with 18 mcg INHALATION 06/20/20 08/27/20 Unknown Rx HandiHaler] DAILY.RESPIRATORY #1 unit zinc gluconate 50 mg PO DAILY #30 tab 06/20/20 08/27/20 Unknown Rx lancets 30 gauge See Rx Instructions .ROUTE 07/17/20 08/27/20 Unknown Rx .COMPLEX #100 each tamsulosin 0.4 mg capsule See Rx Instructions .ROUTE 07/25/20 08/27/20 Unknown Rx .COMPLEX #90 cap glipizide 5 mg tablet See Rx Instructions .ROUTE 08/06/20 08/27/20 Unknown Rx .COMPLEX #45 tab simvastatin 40 mg tablet 40 mg PO DAILY #90 tab 08/12/20 08/27/20 Unknown Rx alendronate 70 mg tablet See Rx Instructions .ROUTE 08/22/20 08/27/20 Unknown Rx .COMPLEX #12 tab clopidogrel 75 mg tablet 75 mg PO DAILY 08/27/20 08/27/20 Unknown History docusate sodium 100 mg capsule 100 mg PO DAILY 08/27/20 08/27/20 Unknown History ibuprofen 600 mg tablet 600 mg PO Q8H PRN 08/27/20 08/27/20 Unknown History rivaroxaban 2.5 mg tablet 2.5 mg PO DAILY tab 08/27/20 08/27/20 Unknown History Allergies Allergy/AdvReac Type Severity Reaction Status Date / Time No Known Allergies Allergy Verified 08/27/20 14:45 PFSH Acute PFSH: Medical History (Updated 08/29/20 @ 16:01 by Asa Dominguez MD) Amputation below knee Emphysema/COPD Enrolled in chronic care management GERD (gastroesophageal reflux disease) History of GI bleed Hx pulmonary embolism Hyperlipemia, mixed Hypothyroidism -Noted elevated TSH, normal free T4 -Continue levothyroxine Peripheral arterial disease PVD (peripheral vascular disease) Type 2 diabetes mellitus with complication, without long-term current use of insulin -A1c at goal-6.2 -Accuchecks, ISS, hypoglycemia precautions -consistent carb diet as tolerated Surgical History H/O cataract extraction RIGHT Hx of CABG Family History Mother Diabetes Hypertension Other CAD (coronary artery disease) Myocardial infarction Social History Smoking and tobacco status: former smoker Second hand smoke exposure: No Smoking risk assessment/counseling performed?: No Alcohol intake: never Desire information about alcohol rehabilitation?: No Counseling given: No Desire information about substance/drug rehabilitation?: No Counseling given: No Lives independently: Yes Household members: spouse Marital status: Current occupational status: retired History of recent travel: No Current gender identity: Male Physical Exam Const: COMMON NORMALS: patient oriented x3 HENMT: COMMON NORMALS: normocephalic and atraumatic HEAD & SCALP: normocephalic and atraumatic Eye: COMMON NORMALS: no scleral icterus Chest: COMMONS NORMALS: normal inspection of the chest CHEST: Yes Symmetrical chest wall rise Resp: COMMON NORMALS: normal respiratory effort and clear to auscultation bilaterally EFFORT & INSPECTION: Yes symmetric chest movement AUSCULTATION: clear to auscultation bilaterally Cardio: COMMON NORMALS: regular rate, regular rhythm, S1 normal heart sound present, S2 normal heart sound present, No gallops present (Cardio), No murmurs present (Cardio), No rub (Cardio) and Peripheral pulses 2+ throughout RATE: regular rate RHYTHM: regular rhythm HEART SOUNDS: S1 normal heart sound present and S2 normal heart sound present GI: COMMON NORMALS: Normal to inspection, nondistended, normoactive bowel sounds present, Soft to palpation and non-tender AUSCULTATION: Yes normoactive bowel sounds PALPATION: Yes Soft to palpation and Yes No hepatosplenomegaly present RECTAL EXAM: Yes deferred Extremity: OTHER: Rt BKA , LT 2nd toe significant necrosis. 2nd toe left foot noted dark in color. NO DPA Palpated, no ALUMNI RELATIONS OFFICER Plapated, Neuro: COMMON NORMALS: patient oriented x3 A&P Assessment and plan (1) Gangrene associated with type 2 diabetes mellitus: Will start him on Vancomycin and Zosyn. ESR , CRP, Consult Surgery for possible amputation. Status: Acute (2) Claudication of left lower extremity: 2/2 TO Severe PAD Status: Acute (3) History of below-knee amputation of right lower extremity: Status: Acute (4) Diabetes: LDSSI FSG Status: Acute (5) COPD (chronic obstructive pulmonary disease): Currently saturating well on R.A.No whezzing, ronchii. Continue with home inhalers ( Spirivia, adavair,ventolin ) Status: Acute (6) COVID-19: Status: Acute (7) Pulmonary embolism: On Xaralto 2.5 mg oral daily. Will continue o hold for now. Status: Acute Additional A&P Information DVT PPX: Lovenox Code Status : Full code Disposition :Home Attestations Medical Necessity Statement*: Patient needs be in hospital for the management lt 2 nd toe gangrene and possible amputation. Anticipated length of stay greater then 2 midnights. Coding Level of Care Code Acute Mental Health Practitioner for g Fwd Diagnoses Gangrene associated with type 2 diabetes mellitus E11.52 Claudication of left lower extremity I73.9 History of below-knee amputation of right lower extremity Z89.511 Diabetes E11.9 COPD (chronic obstructive pulmonary disease) J44.9 COVID-19 U07.1 Pulmonary embolism I26.99
[2020-08-30 05:42] LABS: Basophils % 0.4 %; Eosinophils # 0.2 10^3/uL (0.0-0.8); Eosinophils % 1.9 %; Hematocrit 35.5 % (42.0-52.0); Hemoglobin 10.7 g/dL (11.7-16.6); Lymphocytes # 0.7 10^3/uL (0.8-4.8); Lymphocytes % 7.6 %; Mean Corpuscular HGB Conc 30.1 g/dL (30.0-36.0); Mean Corpuscular Hemoglobin 29.7 pg (28.0-34.0); Mean Corpuscular Volume 98.6 fL (80-94); Monocytes # 0.8 10^3/uL (0.2-0.9); Monocytes % 7.7 %; Neutrophils # 8.01 10^3/uL (1.8-7.7); Neutrophils % 81.8 %; Nucleated Red Blood Cells % 0 %; Platelet Count 364 10^3/cmm (130-400); Red Cell Distribution Width 15.2 % (12.1-15.1); White Blood Count 9.8 10^3/uL (4.0-10.0)
[2020-08-30 06:05] LABS: Alanine Aminotransferase 8 U/L (0-41); Albumin Level 3.3 g/dL (3.5-5.2); Alkaline Phosphatase 74 IU/L (40-130); Anion Gap 16.3 (5-19); Aspartate Amino Transferase 12 U/L (0-40); Blood Urea Nitrogen 8 mg/dL (8-23); Calcium 8.3 mg/dL (8.5-10.5); Carbon Dioxide 20 mmol/L (22-29); Chloride 102 mmol/L (98-107); Globulin 2.7 g/dL (1.3-4.6); Glucose 102 mg/dL (65-115); Osmolality Calculated 277 mOsm/kg (285-295); Potassium 4.3 mmol/L (3.5-5.1); Sodium 134 mmol/L (136-145)
[2020-08-30 08:49] LABS: INR 1.14 (0.8-1.2)
[2020-08-30 09:40] LABS: Erythrocyte Sedimentation Rate 47 mm/hr (0-10)
[2020-08-31 05:36] LABS: Basophils % 0.4 %; Eosinophils # 0.2 10^3/uL (0.0-0.8); Eosinophils % 1.8 %; Hematocrit 32.3 % (42.0-52.0); Hemoglobin 10.4 g/dL (11.7-16.6); Lymphocytes % 8.5 %; Mean Corpuscular HGB Conc 32.2 g/dL (30.0-36.0); Mean Corpuscular Hemoglobin 29.5 pg (28.0-34.0); Mean Corpuscular Volume 91.8 fL (80-94); Mean Platelet Volume 9.4 fL (7.4-10.4); Monocytes # 0.9 10^3/uL (0.2-0.9); Monocytes % 7.7 %; Neutrophils # 9.22 10^3/uL (1.8-7.7); Neutrophils % 81.2 %; Nucleated Red Blood Cells % 0 %; Platelet Count 376 10^3/cmm (130-400); Red Blood Count 3.52 10^6/uL (4.1-5.3); Red Cell Distribution Width 14.9 % (12.1-15.1); White Blood Count 11.4 10^3/uL (4.0-10.0)
[2020-08-31 06:02] LABS: Alanine Aminotransferase 7 U/L (0-41); Albumin Level 3.4 g/dL (3.5-5.2); Alkaline Phosphatase 72 IU/L (40-130); Anion Gap 15.1 (5-19); Aspartate Amino Transferase 10 U/L (0-40); Blood Urea Nitrogen 12 mg/dL (8-23); Calcium 8.5 mg/dL (8.5-10.5); Carbon Dioxide 20 mmol/L (22-29); Chloride 101 mmol/L (98-107); Globulin 2.5 g/dL (1.3-4.6); Glucose 109 mg/dL (65-115); Osmolality Calculated 274 mOsm/kg (285-295); Potassium 4.1 mmol/L (3.5-5.1); Sodium 132 mmol/L (136-145); Total Bilirubin 0.9 mg/dL (0.15-1.2); Total Protein 5.9 g/dL (6.6-8.7)
[2020-09-01 05:34] LABS: Alanine Aminotransferase 7 U/L (0-41); Albumin Level 3.6 g/dL (3.5-5.2); Alkaline Phosphatase 69 IU/L (40-130); Anion Gap 14.2 (5-19); Aspartate Amino Transferase 10 U/L (0-40); Blood Urea Nitrogen 11 mg/dL (8-23); Calcium 8.9 mg/dL (8.5-10.5); Carbon Dioxide 23 mmol/L (22-29); Chloride 99 mmol/L (98-107); Globulin 2.8 g/dL (1.3-4.6); Glucose 118 mg/dL (65-115); Osmolality Calculated 274 mOsm/kg (285-295); Potassium 4.2 mmol/L (3.5-5.1); Sodium 132 mmol/L (136-145); Total Bilirubin 0.8 mg/dL (0.15-1.2); Total Protein 6.4 g/dL (6.6-8.7)
== END 2020-08-29 13:00 | disposition home or self-care (01) ==
LOC: WOUND 13:00
PROVIDERS: Internal Medicine; PCP Nurse Practitioner Family; Visit Provider Thoracic Surgery (Cardiothoracic Vascular Surgery)
DX: E11.621 Type 2 diabetes mellitus with foot ulcer (principal); L97.529 Non-pressure chronic ulcer of other part of left foot with unspecified severity
CPT/HCPCS: 12345; 99212

== ENCOUNTER 2020-08-29 14:55 | Inpatient (IN) | payer MEDICARE, MEDICAID, SELFPAY ==
[2020-08-29 15:01] VITALS: BMI 21.4
[2020-08-29 15:26] VITALS: BP 102/50; PULSE 82; RESP 16; TEMP 36.7; O2SAT 96
[2020-08-29] MEDS: piperacillin-tazobactam 3.375 GM in sodium chloride 0.9% (plus) 50 ML IV ×2 (16:50→23:29)
[2020-08-29 17:30] VITALS: RESP 16; O2SAT 96
[2020-08-29] MEDS: oxyCODONE-APAP 5-325 mg Tablet 1 TAB PO (17:30)
[2020-08-29 19:26] VITALS: BP 108/55; PULSE 94; RESP 18; TEMP 37.1; O2SAT 94
[2020-08-29 19:49] VITALS: PULSE 71; RESP 18; O2SAT 95
[2020-08-29 20:24] VITALS: BP 103/51; PULSE 54; RESP 22; TEMP 36.6; O2SAT 93
[2020-08-29] MEDS: vancomycin 1,500 MG/300 ML PIGGYBACK 200 MG IV (20:34)
[2020-08-29] MEDS: gabapentin 300 mg Capsule PO (20:39)
[2020-08-29 21:05] LABS: Anion Gap 14.2 (5-19); Blood Urea Nitrogen 10 mg/dL (8-23); Calcium 8.2 mg/dL (8.5-10.5); Carbon Dioxide 20 mmol/L (22-29); Chloride 102 mmol/L (98-107); Glucose 116 mg/dL (65-115); Osmolality Calculated 274 mOsm/kg (285-295); Potassium 4.2 mmol/L (3.5-5.1); Sodium 132 mmol/L (136-145)
--- NOTE | 2020-08-29 22:58 | PC.PHAR ---
Pharmacokinetic dosing service Date: 08/29/20 Time: 2199 Objective: Patient: Mauro Espino Floor: 250-1 Age: 80 yo Serum creatinine: 0.7 mg/dL Height: 72.0 Inches Weight (kg): 71.809 Diagnosis: Relevant medical/social history: Cultures and sensitivities: Other labs: Assessment: IBW (kg): 77.60 Dosing wt(kg): 71.809 Estimated Creatinine clearance (ml/min): 88.3 CRCL method: Cockcroft and Gault using ibw(default). Drug selected: Vancomycin Loading dose (mg): 0 Vd (liters): 64.6 (factor used: 0.9 L/kg) Dionicio (hr-1): 0.078 Half life (hrs): 8.89 Recommended dose: 1500 mg Interval: 12 hrs Infusion time (hrs): 1.5 Predicted peak (mcg/mL): 36.1 Predicted trough (mcg/mL): 15.92 Total body weight is being used for vancomycin dosing. Renal function is stable [ ] /unstable [ ] Recommendations: Give Vancomycin 1500 mg q 12 hrs with an expected Cpeak of 36.1 mcg/ml and an expected Ctrough of 15.92 mcg/ml Renal dosing of other antibiotics (review renal dosing of other medications and list guidelines here): Thank you for the consult, will continue to follow. Signature: Renae Minaya [facility]
[2020-08-30] VITALS (10 sets, daily range): BP systolic 90–134; BP diastolic 43–79; PULSE 42–77; RESP 15–18; TEMP 36.6–37.2; O2SAT 94–98
--- NOTE | 2020-08-30 08:30 | CT_ITS ---
WS: [id number] CT LEFT FOOT, NONCONTRAST. HISTORY: Rule out osteomyelitis. Technique: All CT scans at [facility] use at least one of these dose optimization techniq ues: automated exposure control; mA and/or kV adjustment per patient size (includes targeted exams wh ere dose is matched to clinical indication); or iterative reconstruction. DLP: 126.39 mGy.cm COMPARISON: 08/14/2020 LEFT foot radiograph. LEFT foot CT examination was performed without IV contrast. No acute fractures or dislocations. Hammertoe deformities are present. There is a small amount of air in the middle phalanx of the second toe. There may be a small break in the cortex at the PIP joint. No additional areas of thinning of the cortex or bone destruction. There is a moderate amount of soft tissue edema along the plantar surface of the first and second metatarsal heads and toes. Greatest a round the first toe. No foreign bodies are present. CT/CT foot LT wo con* [id number] IMPRESSION: 1. No definite osteomyelitis is identified. The study is limited without IV co ntrast. 2. There is air within the medial phalanx of the second toe which could repres ent infectious process. 3. Moderate soft tissue edema at the first and second metatarsal heads and pro ximal phalanges.
[2020-08-30] MEDS: vancomycin 1,500 MG/300 ML PIGGYBACK 200 MG IV ×2 (08:45→21:24)
[2020-08-30] MEDS: ascorbic acid 500 mg Tablet PO (09:35)
[2020-08-30] MEDS: tamsulosin 0.4 mg Capsule PO (09:35)
[2020-08-30] MEDS: docusate sodium 100 mg Capsule PO (09:35)
[2020-08-30] MEDS: atorvastatin 40 mg Tablet 20 MG PO (09:35)
[2020-08-30] MEDS: aspirin 81 mg EC Tablet PO (09:35)
[2020-08-30] MEDS: gabapentin 300 mg Capsule PO ×3 (09:35→20:47)
[2020-08-30] MEDS: pantoprazole DR 40 mg Tablet PO (09:35)
[2020-08-30] MEDS: lisinopril 10 mg Tablet PO (09:35)
--- NOTE | 2020-08-30 09:39 | P.PN_ITS ---
Subjective Subjective: Interval history: No acute events overnight. patient is afebrile.Other vitals and labs have been reviewed. Patient was seen by Dr. Nascimento, and had an extensive discussion with him, he wants to proceed with left BKA. Medications: Reviewed: Yes Vitals/I&O/Wt Last Vital Signs Temp 98.1 F 08/30/20 07:18 Pulse 70 08/30/20 09:06 Resp 16 08/30/20 08:58 BP 134/79 08/30/20 07:18 Pulse Ox 98 08/30/20 08:58 08/29/20 08/30/20 08/30/20 22:59 06:59 14:59 Intake Total 50 / 50 Output Total 100 / 100 700 / 800 Balance -50 / -50 -700 / -750 Weight last 48 hrs Weight 71.894 kg Weight 71.809 kg Physical Exam Const: COMMON NORMALS: patient oriented x3 Chest: COMMONS NORMALS: normal inspection of the chest CHEST: Yes Symmetrical chest wall rise Resp: COMMON NORMALS: normal respiratory effort, No use of accessory muscles and clear to auscultation bilaterally EFFORT & INSPECTION: Yes symmetric chest movement AUSCULTATION: clear to auscultation bilaterally Cardio: COMMON NORMALS: regular rate, regular rhythm, S1 normal heart sound present and S2 normal heart sound present RATE: regular rate RHYTHM: regular rhythm HEART SOUNDS: S1 normal heart sound present and S2 normal heart sound present GI: COMMON NORMALS: Normal to inspection, nondistended, normoactive bowel sounds present, Soft to palpation, non-tender, No hepatosplenomegaly present and no masses AUSCULTATION: Yes normoactive bowel sounds PALPATION: Yes Soft to palpation and Yes No hepatosplenomegaly present RECTAL EXAM: Yes deferred Extremity: NARRATIVE EXTREMITY EXAM: Gangrenous changes to the entire left second toe has eschar Without purulent drainage or malodor, no wound that extends down to bone or tendon exposed. There is erythema localized to the left forefoot without proximal lymphangitic streaking. Toenails 1 through 5 left foot are, thickened and discolored with subungual debris. Toenails are normal length. Thin atrophic skin with decreased texture and turgor and shiny appearance to the left lower extremity. Neuro: COMMON NORMALS: patient oriented x3 Data : 08/29/20 20:08/29/20 20:07 A&P Assessment and plan (1) Gangrene associated with type 2 diabetes mellitus: Continue Vanco and Zosyn for now. CT of the left foot without contrast: Has failed to show any definitive osteomyelitis changes. Moderate soft tissue edema at the first and second metatarsal heads and proximal phalanges. Patient was evaluated by Dr. Nascimento. Patient expressed his desire to proceed with left BKA, after hearing all the options. Currently we do not have any in-house, facility available for BKA, we will have to refer the patient to the appropriate center. Status: Acute (2) Peripheral arterial disease: Status: Acute (3) COPD (chronic obstructive pulmonary disease): Status: Acute (4) COVID-19: Status: Acute (5) History of below-knee amputation of right lower extremity: Status: Acute Additional A&P Information CODE STATUS: Full code DVT prophylaxis: Lovenox 40 subcu daily Attestations Medical Necessity Statement*: Patient needs to be in hospital for the management of gangrene of left second toe, as well as the need for IV antibiotics. Coding Level of Care Code Acute Registered Phlebotomist Part Time for [facility] Fwd Exam Detailed Diagnoses Gangrene associated with type 2 diabetes mellitus E11.52 Peripheral arterial disease I73.9 COPD (chronic obstructive pulmonary disease) J44.9 COVID-19 U07.1 History of below-knee amputation of right lower extremity Z89.511
--- NOTE | 2020-08-30 09:39 | PC.CHAP ---
Pastoral Care Encounter/Spiritual Assessment Type of Contact [] Declined stock worker and deliverer visit [] Patient/Family/Request visit [] Outpatient visit [] Follow-up visit [] Physician referral [] Code/Alert [] Routine visit [] Staff referral [] Actively dying [] Patient sleeping [] Family support [] [] Out of room [] Palliative care [] [] Receiving care in room [] Pre-surgical visit [] Trauma [] Long length of stay [] ICU visit [] Other: Relational/Emotional Strength [x] Patient feels connected with others/family/visitors/staff [] Distress [] Loneliness/isolation [] Abandonment Spirituality of Patient [x] Person of Daksha [] Attends Uatsdin of their Daksha [] Believes in Prayer [] Reads Bible or Denominational materials [] There are Spiritual issues to be addressed Data Integration Developer Interventions [x] Prayer [x] Active listening [] Non-anxious presence [] Spiritual/emotional support [] Crisis/trauma care [] Spiritual counseling [] Bereavement support [] Provided bereavement packet [] Provided Bible/devotional materials [] Provided toy/stuffed animal, coloring book to patient or family member [] Provided Communion [] Anointing/[place] [] Salvation [] Completed spiritual assessment [] Other: Impact on Illness or Injury [] Angry [] Fearful [] Anxious [] Often cries [] Exhaustion [] Unable to work [] Unable to attend tenriism [] Unable to walk/stand [] Unable to read [] Unable to drive [] Unable to eat/drink [] Unable to sleep [] Unable to be with family [] Patient intubated [] Other: Summaryfeeling better Time spent with patient 10 min
[2020-08-30] MEDS: piperacillin-tazobactam 3.375 GM in sodium chloride 0.9% (plus) 50 ML IV ×2 (10:28→17:32)
--- NOTE | 2020-08-30 14:18 | PC.RESP ---
Pulmonary Rehab information sent to patient.
[2020-08-30 17:11] LABS: Glucose Point of Care 122 mg/dL (70-110)
--- NOTE | 2020-08-30 18:07 | P.CONIM_ITS ---
Providers/Reason For Consult Consulting Physican/Specialty*: Podiatry Reason for Consult*: Gangrene left second toe Attending Physician: Asa Dominguez MD Primary Care Provider: ANNE MARIE Beverly History of Present Illness History of Present Illness Mauro Espino is a 80 year old male diabetic male with extensive peripheral arterial disease with history of interventions. I was consulted for evaluation of gangrene to the left second toe with worsening cellulitis to the left fore foot. Of note patient has a history of below-knee amputation to the right lower extremity performed in 2007. I had last seen Mr. Espino in podiatry clinic February 13, 2020 this was for a routine diabetic foot examination, toenails and calluses were debrided/pared at this visit, no wounds present at that time due to patient's complaint of claudication, clinical findings of nonpalpable pulses and dependent rubor to the left lower extremity as well as history of below-knee amputation had made a referral for possible vascular intervention with Dr. Rafael LÓPEZ, endovascular procedure was performed with multiple balloon angioplasties, no flow established and referral was sent to Dr. Malcom Hernandez in [facility]. Of note patient had had previous histories of revascularization to the lower extremities prior to this event, he has at this time underwent revascularization by Dr. Hernandez at [facility] on July 10 with possible distal femoral bypass. Patient continues to have lower extremity arterial compromise and diminished pedal pulses. I was consulted to evaluate patient's left second toe which has had progressive devitalization at this point is gangrenous. Patient has been receiving empiric IV antibiotics and states that there has been some improvement in the amount of redness at the top of his left forefoot. Patient denies any subjective nausea, vomiting, fever, chills, shortness of breath or chest pain. Review of Systems General: Reports: 10 or more systems reviewed and unremarkable except in HPI and below Const: Denies: fever(s) or chills Card: Denies: chest pain or palpitations Resp: Denies: productive cough GI: Denies: abdominal pain, nausea or vomiting : Denies: flank pain Musc: Reports: extremity swelling, joint pain, joint stiffness, limited range of motion and deformity Skin/Breast: Reports: erythema, sores, nail changes and change in hair Neuro: Reports: numbness in extremities, sensory changes and difficulty walking Psych: Denies: suicidal ideation Jeff/Lymph: Denies: easy bruising Meds/Allergies Home Medications and Allergies Home Medications Medication Instructions Recorded Confirmed Last Taken Type aspirin 81 mg tablet,delayed 81 mg PO DAILY tab 09/08/19 08/30/20 06/14/20 History release ramipril 2.5 mg capsule 2.5 mg PO DAILY cap 09/08/19 08/30/20 06/14/20 History gabapentin 300 mg capsule 300 mg PO TID #270 cap 04/01/20 08/30/20 06/14/20 Rx omeprazole 20 mg PO BID 06/14/20 08/30/20 06/14/20 History albuterol sulfate [Ventolin HFA] 2 puff INHALATION Q4H.RESPIRATORY 06/20/20 08/30/20 Unknown Rx PRN #18 g fluticasone propion-salmeterol 1 puff INHALATION BID.RESPIRATORY 06/20/20 08/30/20 Unknown Rx [Advair Diskus] #1 ea tiotropium bromide [Spiriva with 18 mcg INHALATION 06/20/20 08/30/20 Unknown Rx HandiHaler] DAILY.RESPIRATORY #1 unit tamsulosin 0.4 mg capsule See Rx Instructions .ROUTE 07/25/20 08/30/20 Unknown Rx .COMPLEX #90 cap glipizide 5 mg tablet See Rx Instructions .ROUTE 08/06/20 08/30/20 Unknown Rx .COMPLEX #45 tab simvastatin 40 mg tablet 40 mg PO DAILY #90 tab 08/12/20 08/30/20 Unknown Rx alendronate 70 mg tablet See Rx Instructions .ROUTE 08/22/20 08/30/20 08/25/20 Rx .COMPLEX #12 tab clopidogrel 75 mg tablet 75 mg PO DAILY 08/27/20 08/30/20 Unknown History docusate sodium 100 mg capsule 100 mg PO BID 08/27/20 08/30/20 Unknown History ibuprofen 600 mg tablet 600 mg PO Q8H PRN 08/27/20 08/30/20 Unknown History rivaroxaban 2.5 mg tablet 2.5 mg PO DAILY tab 08/27/20 08/30/20 Unknown History Allergies Allergy/AdvReac Type Severity Reaction Status Date / Time No Known Allergies Allergy Verified 08/27/20 14:45 Current Medications Current Medications Generic Name Dose Route Start Last Admin Trade Name Jared PRN Reason Stop Dose Admin Ascorbic Acid 500 mg 08/30/20 09:00 08/30/20 09:35 Ascorbic Acid 500 Mg Tablet PO 500 mg DAILY DINA Administration Aspirin 81 mg 08/30/20 09:00 08/30/20 09:35 Aspirin 81 Mg Ec Tablet PO 81 mg DAILY DINA Administration Atorvastatin Calcium 20 mg 08/30/20 09:00 08/30/20 09:35 Atorvastatin 40 Mg Tablet PO 20 mg DAILY DINA Administration Docusate Sodium 100 mg 08/30/20 09:00 08/30/20 09:35 Docusate Sodium 100 Mg Capsule PO 100 mg DAILY DINA Administration Gabapentin 300 mg 08/29/20 21:00 08/30/20 14:07 Gabapentin 300 Mg Capsule PO 300 mg TID DINA Administration Piperacillin Sod/Tazobactam 50 mls @ 12.5 mls/hr 08/29/20 16:15 08/30/20 17:32 Sod 3.375 gm/ Sodium Chloride IV 12.5 mls/hr Q8H DINA Administration Protocol Vancomycin/PEG/NADA/Lysine/Water 1,500 mg in 300 mls @ 200 mls/hr 08/30/20 08:30 08/30/20 08:45 Vancocin IV 200 mls/hr Q12H DINA Administration Lisinopril 10 mg 08/30/20 09:00 08/30/20 09:35 Lisinopril 10 Mg Tablet PO 10 mg DAILY DINA Administration Oxycodone/Acetaminophen 1 tab 08/29/20 16:53 08/29/20 17:30 Oxycodone-Apap 5-325 Mg Tablet PO 1 tab Q4H PRN Administration SEVERE PAIN Pantoprazole Sodium 40 mg 08/30/20 09:00 08/30/20 09:[address] 40 Mg Tablet PO 40 mg DAILY DINA Administration Fluticasone/Salmeterol 1 puff 08/29/20 20:00 08/30/20 09:00 Fluticasone-Salmeterol 250-50 Diskus INHALATION 1 puff BID.RESPIRATORY DINA Administration Tamsulosin HCl 0.4 mg 08/30/20 09:00 08/30/20 09:35 Tamsulosin 0.4 Mg Capsule PO 0.4 mg DAILY DINA Administration Tiotropium [place] 18 mcg 08/30/20 08:00 08/30/20 08:59 Tiotropium 18 Mcg Mdi INHALATION 1 puff DAILY.RESPIRATORY DINA Administration PFSH Acute PFSH: Medical History (Updated 08/30/20 @ 18:20 by Juan Jose Nascimento DPM) Amputation below knee Emphysema/COPD Enrolled in chronic care management GERD (gastroesophageal reflux disease) History of GI bleed Hx pulmonary embolism Hyperlipemia, mixed Hypothyroidism -Noted elevated TSH, normal free T4 -Continue levothyroxine Peripheral arterial disease PVD (peripheral vascular disease) Type 2 diabetes mellitus with complication, without long-term current use of insulin -A1c at goal-6.2 -Accuchecks, ISS, hypoglycemia precautions -consistent carb diet as tolerated Surgical History H/O cataract extraction RIGHT Hx of CABG Family History Mother Diabetes Hypertension Other CAD (coronary artery disease) Myocardial infarction Social History Smoking and tobacco status: former smoker Second hand smoke exposure: No Smoking risk assessment/counseling performed?: No Alcohol intake: never Desire information about alcohol rehabilitation?: No Counseling given: No Desire information about substance/drug rehabilitation?: No Counseling given: No Lives independently: Yes Household members: spouse Marital status: Current occupational status: retired History of recent travel: No Current gender identity: Male Vitals/I&O/Wt Last Vital Signs Temp 97.8 F 08/30/20 15:39 Pulse 55 L 08/30/20 15:39 Resp 18 08/30/20 15:39 BP 96/43 08/30/20 15:39 Pulse Ox 95 08/30/20 15:39 08/30/20 08/30/20 08/30/20 06:59 14:59 22:59 Intake Total 50 / 100 170 / 170 Output Total 700 / 800 600 / 600 Balance -650 / -700 -430 / -430 Weight last 48 hrs Weight 158 lb 8 oz Weight 158 lb 5 oz Physical Exam Narrative: EXAM NARRATIVE: Patient is alert and oriented ?3 and in no acute distress. The following is a focused left lower extremity exam. VASCULAR: Dorsalis pedis and posterior tibial arteries nonpalpable left foot r efill time less than 5 seconds to the distal hallux. Calf is supple and nontender proximally and distally. Decreased hair growth to left lower extremity. Rubor to distal toes left foot. No significant edema to the left lower extremity. NEUROLOGICAL: Protective sensation intact 0/10 sites, tested with Diboll Gm monofilament to left foot. DERMATOLOGICAL: Gangrenous changes to the entire left second toe has eschar Without purulent drainage or malodor, no wound that extends down to bone or tendon exposed. There is erythema localized to the left forefoot without proximal lymphangitic streaking. Toenails 1 through 5 left foot are, thickened and discolored with subungual debris. Toenails are normal length. Thin atrophic skin with decreased texture and turgor and shiny appearance to the left lower extremity. MUSCULOSKELETAL: Reducible hammertoe deformities left foot digits 2 through 5. Prominent extensor tendons to the lesser digits left foot. Pes planus foot type left foot. Status post below-knee amputation of the right lower extremity. A&P Assessment and plan (1) Gangrene of toe of left foot: Status: Acute (2) Gangrene associated with type 2 diabetes mellitus: Status: Acute (3) Claudication of left lower extremity: Status: Acute (4) Decreased pedal pulses: Status: Acute (5) Peripheral arterial disease: Status: Acute Mr. Espino is a 80-year-old diabetic male with extensive peripheral arterial disease with multiple revascularizations as noted in the HPI. He has gangrenous changes to his left second toe, clinically stable at this time, x-rays negative for osteomyelitis. CT scan also negative for osteomyelitis, patient is afebrile, no leukocytosis. Improvement in soft tissue at the left forefoot responding well to empiric IV antibiotics. I discussed findings and treatment options with Mr. Espino, his ischemic and gangrenous changes at his left second toe though there is no underlying osteomyelitis at this time would necessitate surgical versus auto amputation at the bare minimum I discussed this to the patient I also discussed higher levels of amputation as a viable option given his lower extremity arterial disease and the likelihood poor healing due to inadequate vascular perfusion. Due to this I also discussed transmetatarsal amputation as well as below-knee amputation as options. Patient was very obed and states that he would like to proceed with below-knee amputation, I was somewhat surprised by this, states that he thought it through and he does not want multiple surgeries it would likely end at the same level of amputation. This is reasonable given his underlying arterial disease. I reiterated with the patient the options outlined above, he was able to articulate all 3 options back to me and once again affirmed his opinion on a below-knee amputation states that he is already planning on [facility] fitting him with a prosthesis on his left lower extremity. Below-knee amputation is out of my scope of practice, credentialing and training. Patient wishes to pursue below knee amputation, I will relate this to his medical team for appropriate referral. Consult Attestations Medical Necessity Statement: Gangrene left second toe Coding Level of Care Code Acute Pharmacy Picking Tech for telly [facility] Diagnoses Gangrene of toe of left foot I96 Gangrene associated with type 2 diabetes mellitus E11.52 Claudication of left lower extremity I73.9 Decreased pedal pulses R09.89 Peripheral arterial disease I73.9
[2020-08-30 19:52] LABS: Vancomycin Trough 16.1 ug/mL (10-15)
[2020-08-31] VITALS (9 sets, daily range): BP systolic 91–115; BP diastolic 52–67; PULSE 49–89; RESP 15–20; TEMP 36.4–37.2; O2SAT 90–98
[2020-08-31] MEDS: piperacillin-tazobactam 3.375 GM in sodium chloride 0.9% (plus) 50 ML IV ×3 (02:49→17:59)
[2020-08-31] MEDS: vancomycin 1,500 MG/300 ML PIGGYBACK 200 MG IV ×2 (08:51→20:24)
[2020-08-31] MEDS: atorvastatin 40 mg Tablet 20 MG PO (08:51)
[2020-08-31] MEDS: tamsulosin 0.4 mg Capsule PO (08:52)
[2020-08-31] MEDS: aspirin 81 mg EC Tablet PO (08:52)
[2020-08-31] MEDS: ascorbic acid 500 mg Tablet PO (08:52)
[2020-08-31] MEDS: gabapentin 300 mg Capsule PO ×3 (08:52→20:24)
[2020-08-31] MEDS: docusate sodium 100 mg Capsule PO (08:52)
[2020-08-31] MEDS: lisinopril 10 mg Tablet PO (08:52)
[2020-08-31] MEDS: pantoprazole DR 40 mg Tablet PO (08:53)
--- NOTE | 2020-08-31 10:38 | USR_ITS ---
PROCEDURE INFORMATION: Exam: US Duplex Left Lower Extremity Arteries Or Arterial Bypass Grafts Exam date and time: 08/31/2020 10:42 AM Age: 80 years old Clinical indication: Other: Gangrenous left toe; Patient HX: Surgical history not clear; Additional info: Pvd evaluation TECHNIQUE: Imaging protocol: Left Real-time duplex scan of the arteries or arterial bypass grafts of the left lower extremity with 2-D tang scale, color Doppler flow and spectral waveform analysis. Images documented and saved. COMPARISON: No relevant prior studies available. FINDINGS: Complete occlusion of the proximal superficial femoral artery extending to the popliteal artery. No definite arterial flow in the calf arteries. Monophasic flow in the common femoral artery. US/[place] [id number] IMPRESSION: Complete left superficial femoral artery occlusion.
[2020-08-31 11:47] LABS: Basophils # 0.1 10^3/uL (0.0-0.1); Basophils % 0.4 %; Eosinophils # 0.2 10^3/uL (0.0-0.8); Eosinophils % 1.3 %; Hematocrit 32.3 % (42.0-52.0); Hemoglobin 10.3 g/dL (11.7-16.6); Lymphocytes # 0.9 10^3/uL (0.8-4.8); Lymphocytes % 7.5 %; Mean Corpuscular HGB Conc 31.9 g/dL (30.0-36.0); Mean Corpuscular Volume 94.2 fL (80-94); Mean Platelet Volume 9.2 fL (7.4-10.4); Monocytes # 0.8 10^3/uL (0.2-0.9); Monocytes % 7.3 %; Neutrophils # 9.38 10^3/uL (1.8-7.7); Nucleated Red Blood Cells % 0 %; Platelet Count 355 10^3/cmm (130-400); Red Blood Count 3.43 10^6/uL (4.1-5.3); Red Cell Distribution Width 14.9 % (12.1-15.1); White Blood Count 11.3 10^3/uL (4.0-10.0)
--- NOTE | 2020-08-31 12:08 | P.PN_ITS ---
Subjective Subjective: Interval history: Mr. Wade is doing fine. Gangrene of the left second toe is progressively worsening. Rates his pain anywhere around 5-10. Vitals/I&O/Wt Last Vital Signs Temp 98.8 F 08/31/20 06:59 Pulse 80 08/31/20 07:44 Resp 17 08/31/20 07:40 BP 99/62 08/31/20 06:59 Pulse Ox 97 08/31/20 07:40 08/30/20 08/31/20 08/31/20 22:59 06:59 14:59 Intake Total 620 / 1090 50 / 1140 400 / 400 Output Total 300 / 900 675 / 1575 300 / 300 Balance 320 / 190 -625 / -435 100 / 100 Weight last 48 hrs Weight 71.894 kg Weight 71.809 kg Physical Exam Const: COMMON NORMALS: patient oriented x3 Chest: CHEST: Yes Symmetrical chest wall rise Resp: COMMON NORMALS: normal respiratory effort Cardio: COMMON NORMALS: regular rate, regular rhythm, S1 normal heart sound present, S2 normal heart sound present, No gallops present (Cardio), No murmurs present (Cardio) and No rub (Cardio) RATE: regular rate RHYTHM: regular rhythm HEART SOUNDS: S1 normal heart sound present and S2 normal heart sound present GI: COMMON NORMALS: Normal to inspection, nondistended, normoactive bowel sounds present, Soft to palpation, non-tender, No hepatosplenomegaly present and no masses AUSCULTATION: Yes normoactive bowel sounds PALPATION: Yes Soft to palpation and Yes No hepatosplenomegaly present RECTAL EXAM: Yes deferred Extremity: OTHER: Gangrenous changes to the entire left second toe has eschar Without purulent drainage or malodor, no wound that extends down to bone or tendon exposed. There is erythema localized to the left forefoot without proximal lymphangitic streaking. Toenails 1 through 5 left foot are, thickened and discolored with subungual debris. Toenails are normal length. Thin atrophic skin with decreased texture and turgor and shiny appearance to the left lower extremity. Neuro: COMMON NORMALS: patient oriented x3 Data : 08/31/20 11:15 08/31/20 11:15 A&P Assessment and plan (1) Gangrene associated with type 2 diabetes mellitus: Continue Vanco and Zosyn for now. CT of the left foot without contrast: Has failed to show any definitive osteomyelitis changes. Moderate soft tissue edema at the first and second metatarsal heads and proximal phalanges. US Duplex Left Lower Extremity Arteries: Complete occlusion of the proximal superficial femoral artery extending to the popliteal artery. No definite arterial flow in the calf arteries. Monophasic flow in the common femoral artery. Patient was evaluated by Dr. Nascimento. Patient expressed his desire to proceed with left BKA, after hearing all the options. Dr. Diggs from general surgery has agreed: To proceed with needed amputation. Status: Acute (2) Peripheral arterial disease: Status: Acute (3) COPD (chronic obstructive pulmonary disease): Status: Acute (4) COVID-19: Repeat RT-PCR: Has been sent: As per surgery requirement: Status: Acute (5) History of below-knee amputation of right lower extremity: Status: Acute Additional A&P Information CODE STATUS: Full code DVT prophylaxis: Lovenox 40 subcu daily Attestations Medical Necessity Statement*: Patient needs to be in hospital for the management of gangrene of left second toe, as well as the need for IV antibiotics. Coding Level of Care Code Acute Speech Therapy Assistant for [facility] Fwd Diagnoses Gangrene associated with type 2 diabetes mellitus E11.52 Peripheral arterial disease I73.9 COPD (chronic obstructive pulmonary disease) J44.9 COVID-19 U07.1 History of below-knee amputation of right lower extremity Z89.511
[2020-08-31 12:09] LABS: Lactic Sepsis W/Reflex 1.3 mmol/L (0.5-2.2)
[2020-08-31 12:11] LABS: Alanine Aminotransferase 7 U/L (0-41); Albumin Level 3.2 g/dL (3.5-5.2); Alkaline Phosphatase 68 IU/L (40-130); Aspartate Amino Transferase 12 U/L (0-40); Blood Urea Nitrogen 11 mg/dL (8-23); C Reactive Protein 79.1 mg/L (0.0-4.9); Calcium 8.3 mg/dL (8.5-10.5); Carbon Dioxide 21 mmol/L (22-29); Chloride 99 mmol/L (98-107); Globulin 2.6 g/dL (1.3-4.6); Glucose 144 mg/dL (65-115); Osmolality Calculated 270 mOsm/kg (285-295); Sodium 129 mmol/L (136-145); Total Bilirubin 0.8 mg/dL (0.15-1.2); Total Protein 5.8 g/dL (6.6-8.7)
[2020-08-31 12:55] LABS: Anion Gap 13.3 (5-19); Potassium 4.3 mmol/L (3.5-5.1)
[2020-09-01] VITALS (8 sets, daily range): BP systolic 92–119; BP diastolic 44–61; PULSE 40–82; RESP 16–20; TEMP 36.7–37.3; O2SAT 92–97
[2020-09-01] MEDS: piperacillin-tazobactam 3.375 GM in sodium chloride 0.9% (plus) 50 ML IV ×3 (02:43→17:08)
[2020-09-01 05:13] LABS: Basophils # 0.1 10^3/uL (0.0-0.1); Basophils % 0.6 %; Eosinophils # 0.2 10^3/uL (0.0-0.8); Eosinophils % 2.3 %; Hematocrit 35.5 % (42.0-52.0); Hemoglobin 11.3 g/dL (11.7-16.6); Lymphocytes # 0.9 10^3/uL (0.8-4.8); Lymphocytes % 10.1 %; Mean Corpuscular HGB Conc 31.8 g/dL (30.0-36.0); Mean Corpuscular Hemoglobin 29.4 pg (28.0-34.0); Mean Corpuscular Volume 92.2 fL (80-94); Monocytes # 0.8 10^3/uL (0.2-0.9); Monocytes % 8.7 %; Neutrophils # 7.27 10^3/uL (1.8-7.7); Nucleated Red Blood Cells % 0 %; Platelet Count 371 10^3/cmm (130-400); Red Blood Count 3.85 10^6/uL (4.1-5.3); Red Cell Distribution Width 14.9 % (12.1-15.1); White Blood Count 9.3 10^3/uL (4.0-10.0)
--- NOTE | 2020-09-01 06:20 | PC.NURSE ---
SHIFT SUMMARY Patient rested well through the night. No complaints of pain. Vitals WNL
[2020-09-01] MEDS: aspirin 81 mg EC Tablet PO (08:33)
[2020-09-01] MEDS: docusate sodium 100 mg Capsule PO (08:33)
[2020-09-01] MEDS: pantoprazole DR 40 mg Tablet PO (08:33)
[2020-09-01] MEDS: tamsulosin 0.4 mg Capsule PO (08:33)
[2020-09-01] MEDS: ascorbic acid 500 mg Tablet PO (08:34)
[2020-09-01] MEDS: atorvastatin 40 mg Tablet 20 MG PO (08:34)
[2020-09-01] MEDS: gabapentin 300 mg Capsule PO ×3 (08:34→21:49)
[2020-09-01] MEDS: lisinopril 10 mg Tablet PO (08:34)
--- NOTE | 2020-09-01 09:10 | PC.SOCIAL ---
IMM Page 2 of IMM explained to patient. Initialed, dated, and timed and placed in chart. Copy provided to patient's beside.
--- NOTE | 2020-09-01 13:05 | P.CONIM_ITS ---
Providers/Reason For Consult Consulting Physican/Specialty*: Asa Dominguez MD Reason for Consult*: Evaluation for amputation Attending Physician: Asa Dominguez MD Primary Care Provider: ANNE MARIE Beverly History of Present Illness History of Present Illness Mauro Espino is a 80 year old male with significant peripheral arterial disease status post left femoropopliteal bypass as well as percutaneous intervention which has been unsuccessful. Patient was admitted to the hospital with tightness and gangrene of his left second toe after he presented to the wound care for wound management. Patient would like to undergo amputation and I was therefore consulted. Patient has had any vascular studies since February 2020. Review of Systems General: Reports: 10 or more systems reviewed and unremarkable except in HPI and below Meds/Allergies Home Medications and Allergies Home Medications Medication Instructions Recorded Confirmed Last Taken Type aspirin 81 mg tablet,delayed 81 mg PO DAILY tab 09/08/19 08/30/20 06/14/20 History release ramipril 2.5 mg capsule 2.5 mg PO DAILY cap 09/08/19 08/30/20 06/14/20 History gabapentin 300 mg capsule 300 mg PO TID #270 cap 04/01/20 08/30/20 06/14/20 Rx omeprazole 20 mg PO BID 06/14/20 08/30/20 06/14/20 History albuterol sulfate [Ventolin HFA] 2 puff INHALATION Q4H.RESPIRATORY 06/20/20 08/30/20 Unknown Rx PRN #18 g fluticasone propion-salmeterol 1 puff INHALATION BID.RESPIRATORY 06/20/20 08/30/20 Unknown Rx [Advair Diskus] #1 ea tiotropium bromide [Spiriva with 18 mcg INHALATION 06/20/20 08/30/20 Unknown Rx HandiHaler] DAILY.RESPIRATORY #1 unit tamsulosin 0.4 mg capsule See Rx Instructions .ROUTE 07/25/20 08/30/20 Unknown Rx .COMPLEX #90 cap glipizide 5 mg tablet See Rx Instructions .ROUTE 08/06/20 08/30/20 Unknown Rx .COMPLEX #45 tab simvastatin 40 mg tablet 40 mg PO DAILY #90 tab 08/12/20 08/30/20 Unknown Rx alendronate 70 mg tablet See Rx Instructions .ROUTE 08/22/20 08/30/20 08/25/20 Rx .COMPLEX #12 tab clopidogrel 75 mg tablet 75 mg PO DAILY 08/27/20 08/30/20 Unknown History docusate sodium 100 mg capsule 100 mg PO BID 08/27/20 08/30/20 Unknown History ibuprofen 600 mg tablet 600 mg PO Q8H PRN 08/27/20 08/30/20 Unknown History rivaroxaban 2.5 mg tablet 2.5 mg PO DAILY tab 08/27/20 08/30/20 Unknown History Allergies Allergy/AdvReac Type Severity Reaction Status Date / Time No Known Allergies Allergy Verified 08/27/20 14:45 Current Medications Current Medications Generic Name Dose Route Start Last Admin Trade Name Freq PRN Reason Stop Dose Admin Ascorbic Acid 500 mg 08/30/20 09:00 09/01/20 08:34 Ascorbic Acid 500 Mg Tablet PO 500 mg DAILY DINA Administration Aspirin 81 mg 08/30/20 09:00 09/01/20 08:33 Aspirin 81 Mg Ec Tablet PO 81 mg DAILY DINA Administration Atorvastatin Calcium 20 mg 08/30/20 09:00 09/01/20 08:34 Atorvastatin 40 Mg Tablet PO 20 mg DAILY DINA Administration Docusate Sodium 100 mg 08/30/20 09:00 09/01/20 08:33 Docusate Sodium 100 Mg Capsule PO 100 mg DAILY DINA Administration Gabapentin 300 mg 08/29/20 21:00 09/01/20 08:34 Gabapentin 300 Mg Capsule PO 300 mg TID DINA Administration Piperacillin Sod/Tazobactam 50 mls @ 12.5 mls/hr 08/29/20 16:15 09/01/20 08:34 Sod 3.375 gm/ Sodium Chloride IV 12.5 mls/hr Q8H DINA Administration Protocol Lisinopril 10 mg 08/30/20 09:00 09/01/20 08:34 Lisinopril 10 Mg Tablet PO 10 mg DAILY DINA Administration Oxycodone/Acetaminophen 1 tab 08/29/20 16:53 08/29/20 17:30 Oxycodone-Apap 5-325 Mg Tablet PO 1 tab Q4H PRN Administration SEVERE PAIN Pantoprazole Sodium 40 mg 08/30/20 09:00 09/01/20 08:[address] 40 Mg Tablet PO 40 mg DAILY DINA Administration Fluticasone/Salmeterol 1 puff 08/29/20 20:00 12/20/20 08:06 Fluticasone-Salmeterol 250-50 Diskus INHALATION 1 puff BID.RESPIRATORY DINA Administration Tamsulosin HCl 0.4 mg 08/30/20 09:00 09/01/20 08:33 Tamsulosin 0.4 Mg Capsule PO 0.4 mg DAILY DINA Administration Tiotropium [place]og[place] 18 mcg 08/30/20 08:00 09/01/20 08:06 Tiotropium 18 Mcg Mdi INHALATION 1 puff DAILY.RESPIRATORY DINA Administration PFSH Acute PFSH: Medical History Amputation below knee Emphysema/COPD Enrolled in chronic care management GERD (gastroesophageal reflux disease) History of GI bleed Hx pulmonary embolism Hyperlipemia, mixed Hypothyroidism -Noted elevated TSH, normal free T4 -Continue levothyroxine Peripheral arterial disease PVD (peripheral vascular disease) Type 2 diabetes mellitus with complication, without long-term current use of insulin -A1c at goal-6.2 -Accuchecks, ISS, hypoglycemia precautions -consistent carb diet as tolerated Surgical History H/O cataract extraction RIGHT Hx of CABG Family History Mother Diabetes Hypertension Other CAD (coronary artery disease) Myocardial infarction Social History Smoking and tobacco status: former smoker Second hand smoke exposure: No Smoking risk assessment/counseling performed?: No Alcohol intake: never Desire information about alcohol rehabilitation?: No Counseling given: No Desire information about substance/drug rehabilitation?: No Counseling given: No Lives independently: Yes Household members: spouse Marital status: Current occupational status: retired History of recent travel: No Current gender identity: Male Vitals/I&O/Wt Last Vital Signs Temp 98.0 F 09/01/20 11:45 Pulse 40 L 09/01/20 11:45 Resp 20 H 09/01/20 11:45 BP 115/61 09/01/20 11:45 Pulse Ox 95 09/01/20 11:45 08/31/20 09/01/20 09/01/20 22:59 06:59 14:59 Intake Total 520 / 1690 50 / 1690 Output Total 200 / 2000 1200 / 2000 450 / 450 Balance 320 / -310 -1150 / -310 -450 / -450 Physical Exam Narrative: EXAM NARRATIVE: HEENT: Normocephalic Eye: Sclera /conjunctiva normal Respiratory and chest: Bilateral clear breath sounds on auscultation Cardiovascular: Normal S1 and S2 heart sounds Abdomen: Soft to palpation Neurological: Oriented to place person and time Skin: Intact, right AKA, dry gangrene left foot with associated cellulitis, popliteal, dorsalis pedis and PT pulse nonpalpable, femoral faintly palpable A&P Assessment and plan (1) Gangrene associated with type 2 diabetes mellitus: 80-year-old male who presents significant peripheral vascular disease status post percutaneous intervention as well as femoropopliteal bypass in February 2020 which subsequently has failed. He has now developed critical ischemia with dry gangrene and associated cellulitis of his left foot and patient would like to proceed with amputation. He has had a prior right BKA. Arterial duplex shows occluded SFA, popliteal and no significant flow below the knee with faint flow in the common femoral artery. Discussed ultrasound findings with the patient and will proceed with left above-knee amputation Procedure, risks, benefits and alternatives have been discussed with the patient who wishes to proceed with surgery. 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
[2020-09-01] MEDS: vancomycin 1,250 MG/250 ML PIGGYBACK 250 MG IV (14:24)
--- NOTE | 2020-09-01 17:49 | PC.NURSE ---
SHIFT SUMMARY PATIENT HAS RESTED MOST OF THE DAY. NO COMPLAINTS OF PAIN. NPO AFTER MIDNIGHT FOR SURGERY TOMORROW. VITALS STABLE. GOOD URINE OUTPUT. CONTINUE TO MONITOR.
--- NOTE | 2020-09-01 20:36 | PM.PN ---
Subjective Subjective: Interval history: No acute event overnight.Patient is doing fine.Vitals and labs have been reviewed. Medications: Reviewed: Yes Vitals/I&O/Wt Last Vital Signs Temp 99.2 F 09/01/20 20:23 Pulse 82 09/01/20 20:23 Resp 18 09/01/20 20:23 BP 92/44 09/01/20 20:23 Pulse Ox 97 09/01/20 20:23 09/01/20 09/01/20 09/01/20 06:59 14:59 22:59 Intake Total 50 / 1690 50 / 50 240 / 290 Output Total 1200 / 2000 650 / 650 350 / 1000 Balance -1150 / -310 -600 / -600 -110 / -710 Physical Exam Const: COMMON NORMALS: patient oriented x3 HENMT: COMMON NORMALS: normocephalic and atraumatic HEAD & SCALP: normocephalic and atraumatic Chest: COMMONS NORMALS: normal inspection of the chest CHEST: Yes Symmetrical chest wall rise Resp: COMMON NORMALS: normal respiratory effort and clear to auscultation bilaterally EFFORT & INSPECTION: Yes symmetric chest movement AUSCULTATION: clear to auscultation bilaterally Cardio: COMMON NORMALS: regular rate, regular rhythm, S1 normal heart sound present, S2 normal heart sound present, No gallops present (Cardio) and No murmurs present (Cardio) RATE: regular rate RHYTHM: regular rhythm HEART SOUNDS: S1 normal heart sound present and S2 normal heart sound present GI: COMMON NORMALS: Normal to inspection, nondistended, normoactive bowel sounds present, Soft to palpation, non-tender, No hepatosplenomegaly present and no masses AUSCULTATION: Yes normoactive bowel sounds PALPATION: Yes Soft to palpation and Yes No hepatosplenomegaly present RECTAL EXAM: Yes deferred Extremity: OTHER: Gangrenous changes to the entire left second toe has eschar Without purulent drainage or malodor, no wound that extends down to bone or tendon exposed. There is erythema localized to the left forefoot without proximal lymphangitic streaking. Toenails 1 through 5 left foot are, thickened and discolored with subungual debris. Toenails are normal length. Thin atrophic skin with decreased texture and turgor and shiny appearance to the left lower extremity. Neuro: COMMON NORMALS: patient oriented x3 Data : 09/01/20 04:54 12/19/20 11:15 A&P Assessment and plan (1) Gangrene associated with type 2 diabetes mellitus: Continue Vanco and Zosyn for now. CT of the left foot without contrast: Has failed to show any definitive osteomyelitis changes. Moderate soft tissue edema at the first and second metatarsal heads and proximal phalanges. US Duplex Left Lower Extremity Arteries: Complete occlusion of the proximal superficial femoral artery extending to the popliteal artery. No definite arterial flow in the calf arteries. Monophasic flow in the common femoral artery. Patient was evaluated by Dr. Nascimento. Patient expressed his desire to proceed with left BKA, after hearing all the options. Dr. Diggs from general surgery has agreed: To proceed with needed amputation.Due for 09/02.NPO after midnight Status: Acute (2) Peripheral arterial disease: Status: Acute (3) COPD (chronic obstructive pulmonary disease): Status: Acute (4) COVID-19: Repeat RT-PCR: Has been sent: As per surgery requirement: Status: Acute (5) History of below-knee amputation of right lower extremity: Status: Acute Additional A&P Information CODE STATUS: Full code DVT prophylaxis: Lovenox 40 subcu daily Attestations Medical Necessity Statement*: Needs to be in hospital for management of gangrene of left second toe, IV antibiotic, and possible AKA or BKA Coding Level of Care Code 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
[2020-09-02] VITALS (21 sets, daily range): BP systolic 88–133; BP diastolic 38–72; PULSE 47–83; RESP 14–20; TEMP 36.4–37.3; O2SAT 90–98
[2020-09-02] MEDS: vancomycin 1,250 MG/250 ML PIGGYBACK 250 MG IV ×2 (02:40→14:59)
[2020-09-02] MEDS: piperacillin-tazobactam 3.375 GM in sodium chloride 0.9% (plus) 50 ML IV ×2 (04:05→20:33)
[2020-09-02 05:55] LABS: Blood Urea Nitrogen 13 mg/dL (8-23); Calcium 8.7 mg/dL (8.5-10.5); Carbon Dioxide 20 mmol/L (22-29); Chloride 105 mmol/L (98-107); Glucose 136 mg/dL (65-115); Osmolality Calculated 282 mOsm/kg (285-295); Sodium 135 mmol/L (136-145)
[2020-09-02 05:56] LABS: Anion Gap 14.5 (5-19); Potassium 4.5 mmol/L (3.5-5.1)
[2020-09-02 06:43] LABS: Basophils # 0.1 10^3/uL (0.0-0.1); Basophils % 0.6 %; Eosinophils # 0.2 10^3/uL (0.0-0.8); Eosinophils % 2.3 %; Hematocrit 34.8 % (42.0-52.0); Lymphocytes # 0.9 10^3/uL (0.8-4.8); Lymphocytes % 8.9 %; Mean Corpuscular HGB Conc 31.6 g/dL (30.0-36.0); Mean Corpuscular Hemoglobin 29.4 pg (28.0-34.0); Mean Platelet Volume 9.3 fL (7.4-10.4); Monocytes # 0.9 10^3/uL (0.2-0.9); Monocytes % 8.5 %; Neutrophils # 7.99 10^3/uL (1.8-7.7); Neutrophils % 79.4 %; Nucleated Red Blood Cells % 0 %; Platelet Count 382 10^3/cmm (130-400); Red Blood Count 3.74 10^6/uL (4.1-5.3); Red Cell Distribution Width 14.8 % (12.1-15.1); White Blood Count 10.1 10^3/uL (4.0-10.0)
[2020-09-02] MEDS: tamsulosin 0.4 mg Capsule PO (07:25)
[2020-09-02] MEDS: lisinopril 10 mg Tablet PO (07:25)
[2020-09-02] MEDS: aspirin 81 mg EC Tablet PO (07:25)
[2020-09-02] MEDS: gabapentin 300 mg Capsule PO ×3 (07:25→20:33)
[2020-09-02] MEDS: atorvastatin 40 mg Tablet 20 MG PO (07:26)
--- NOTE | 2020-09-02 09:05 | PM.PN ---
Subjective Subjective: Interval history: No issues overnight, on IV antibiotics Vitals/I&O/Wt Last Vital Signs Temp 97.5 F L 09/02/20 08:00 Pulse 61 09/02/20 08:00 Resp 15 09/02/20 08:00 BP 125/54 09/02/20 08:00 Pulse Ox 95 09/02/20 08:00 09/01/20 09/02/20 09/02/20 22:59 06:59 14:59 Intake Total 540 / 590 Output Total 350 / 1700 700 / 1700 350 / 350 Balance 190 / -1110 -700 / -1110 -350 / -350 Physical Exam Narrative: EXAM NARRATIVE: Left foot: Cellulitis with gangrene Data : 09/02/20 06:29 09/02/20 05:14 A&P Assessment and plan (1) Gangrene of toe of left foot: 80-year-old male with significant peripheral vascular disease with no significant flow below the common femoral artery based on arterial duplex performed yesterday. 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
--- NOTE | 2020-09-02 10:29 | P.ANESASSM_ITS ---
Pre-Anesthetic Assessment Pre-Anesthetic Assessment: Height/Weight: Height 1.83 m Weight 71.894 kg Temp Pulse Resp BP Pulse Ox 99.2 F 77 18 124/59 97 09/02/20 09:58 09/02/20 09:58 09/02/20 09:58 09/02/20 09:58 09/02/20 09:58 Preop Diagnosis: limb ischemia Proposed Procedure: Operation Date: 09/02/20 10:45 Proposed Procedures p AKA (Above Knee Amputation)(Left) - Jcarlos Diggs MD Was Beta Gabriella taken within 24 hours: N/A Last intake: Intake Last Liquid Date 09/01/20 Last Liquid Time 18:00 Last Solid Date 09/01/20 Last Solid Time 18:00 Social: Social History: Tobacco and No alcohol Exam: Pre-Anes Outpt Exam: alert, oriented x 3 and regular rate & rhythm Additional Exam Findings (including area of procedure): Decreased BBS, rhonchi Airway: Submandibular: WNL Cervical ROM: WNL MP: 2 Dentition: False Pulmonary: Pulmonary: COPD CV/HEM: CV/HEM: CAD and PVD Comments: h/o CABG : : None reported Hepatic: Hepatic: None reported GI: GI: None reported Metabolic: Metabolic: DM Musc/skel: Musc/skel: None reported Neuropsych: Neuropsych: None reported Anesthetic Plan: ASA status: 3 Anesthesia: General Risk of > 500 ml blood loss (7ml/kg in children): No Meds/Allergies Current Medications: Current Medications Generic Name Dose Route Start Last Admin Trade Name Jared PRN Reason Stop Dose Admin Ascorbic Acid 500 mg 08/30/20 09:00 09/02/20 07:37 Ascorbic Acid 50 0 Mg Tablet PO Not Given DAILY DINA Aspirin 81 mg 08/30/20 09:00 09/02/20 07:25 Aspirin 81 Mg Ec Tablet PO 81 mg DAILY DINA Administration Atorvastatin Calci um 20 mg 08/30/20 09:00 09/02/20 07:26 Atorvastatin 40 Mg Tablet PO 20 mg DAILY DINA Administration Docusate Sodium 100 mg 08/30/20 09:00 09/02/20 07:37 Docusate Sodium 100 Mg Capsule PO Not Given DAILY DINA Gabapentin 300 mg 08/29/20 21:00 09/02/20 07:25 Gabapentin 300 M g Capsule PO 300 mg TID DINA Administration Piperacillin Sod/T azobactam 50 mls @ 12.5 mls /hr 08/29/20 16:15 09/02/20 04:05 Sod 3.375 gm/ So dium Chloride IV 12.5 mls/hr Q8H DINA Administration Protocol Vancomycin/PEG/NAD A/Lysine/Water 1,250 mg in 250 m ls @ 250 mls/hr 09/01/20 14:00 09/02/20 02:40 Vancocin IV 250 mls/hr Q12H DINA Administration Lisinopril 10 mg 08/30/20 09:00 09/02/20 07:25 Lisinopril 10 Mg Tablet PO 10 mg DAILY DINA Administration Oxycodone/Acetamin ophen 1 tab 08/29/20 16:53 08/29/20 17:30 Oxycodone-Apap 5 -325 Mg Tablet PO 1 tab Q4H PRN Administration SEVERE PAIN Pantoprazole [place] m 40 mg 08/30/20 09:00 09/02/20 07:[address] 40 Mg Tablet PO Not Given DAILY DINA Fluticasone/Salmet cherry 1 puff 08/29/20 20:00 09/02/20 09:11 Fluticasone-Salm eterol 250-50 Disk us INHALATION 1 puff BID.RESPIRATORY S CH Administration Tamsulosin HCl 0.4 mg 08/30/20 09:00 09/02/20 07:25 Tamsulosin 0.4 M g Capsule PO 0.4 mg DAILY DINA Administration Tiotropium [place] 18 mcg 08/30/20 08:00 09/02/20 09:10 Tiotropium 18 Mc g Mdi INHALATION 1 puff DAILY.RESPIRATORY DINA Administration PFSH Anesthesia PFSH: Medical History Amputation below knee Emphysema/COPD Enrolled in chronic care management GERD (gastroesophageal reflux disease) History of GI bleed Hx pulmonary embolism Hyperlipemia, mixed Hypothyroidism -Noted elevated TSH, normal free T4 -Continue levothyroxine Peripheral arterial disease PVD (peripheral vascular disease) Type 2 diabetes mellitus with complication, without long-term current use of insulin -A1c at goal-6.2 -Accuchecks, ISS, hypoglycemia precautions -consistent carb diet as tolerated Surgical History H/O cataract extraction RIGHT Hx of CABG Family History Mother Diabetes Hypertension Other CAD (coronary artery disease) Myocardial infarction Social History Smoking and tobacco status: former smoker Second hand smoke exposure: No Smoking risk assessment/counseling performed?: No Alcohol intake: never Desire information about alcohol rehabilitation?: No Counseling given: No Desire information about substance/drug rehabilitation?: No Counseling given: No Lives independently: Yes Household members: spouse Marital status: Current occupational status: retired History of recent travel: No Current gender identity: Male Data Anesthesia CBC & Chem 7: 09/02/20 06:29 09/02/20 05:14 Other Labs: Laboratory Results - last 48 hr 08/31/20 08/31/20 08/31/20 11:15 11:15 11:15 WBC 11.3 H Corrected WBC RBC 3.43 L Hgb 10.3 L Hct 32.3 L MCV 94.2 H MCH 30.0 MCHC 31.9 RDW 14.9 Plt Count 355 MPV 9.2 Gran % Neut % (Auto) 83.0 Lymph % (Auto) 7.5 [place] % (Auto) 7.3 Eos % (Auto) 1.3 Baso % (Auto) 0.4 Neut # (Auto) 9.38 H Lymph # (Auto) 0.9 [place] # (Auto) 0.8 Eos # (Auto) 0.2 Baso # (Auto) 0.1 Absolute Gran (auto) Nucleated RBC % (auto) 0 Nucleated RBCs # 0.0 Sodium 129 L Potassium 4.3 Chloride 99 Carbon Dioxide 21 L Anion Gap 13.3 BUN 11 Creatinine 0.7 GFR Calculation Not Reportable Glucose 144 H Calculated Osmolality 270 L Lactic Acid 1.3 Calcium 8.3 L Total Bilirubin 0.8 AST 12 ALT 7 Alkaline Phosphatase 68 C-Reactive Protein 79.1 H Total Protein 5.8 L Albumin 3.2 L Globulin 2.6 Vancomycin Trough 09/01/20 09/01/20 09/02/20 04:54 07:29 05:14 WBC 9.3 Cancelled Corrected WBC Cancelled RBC 3.85 L Cancelled Hgb 11.3 L Cancelled Hct 35.5 L Cancelled MCV 92.2 Cancelled MCH 29.4 Cancelled MCHC 31.8 Cancelled RDW 14.9 Cancelled Plt Count 371 Cancelled MPV 9.0 Cancelled Gran % Cancelled Neut % (Auto) 78.0 Cancelled Lymph % (Auto) 10.1 Cancelled [place] % (Auto) 8.7 Cancelled Eos % (Auto) 2.3 Cancelled Baso % (Auto) 0.6 Cancelled Neut # (Auto) 7.27 Cancelled Lymph # (Auto) 0.9 Cancelled [place] # (Auto) 0.8 Cancelled Eos # (Auto) 0.2 Cancelled Baso # (Auto) 0.1 Cancelled Absolute Gran (auto) Cancelled Nucleated RBC % (auto) 0 Cancelled Nucleated RBCs # 0.0 Cancelled Sodium Potassium Chloride Carbon Dioxide Anion Gap BUN Creatinine GFR Calculation Glucose Calculated Osmolality Lactic Acid Calcium Total Bilirubin AST ALT Alkaline Phosphatase C-Reactive Protein Total Protein Albumin Globulin Vancomycin Trough 21.0 H 09/02/20 09/02/20 05:14 06:29 WBC 10.1 H Corrected WBC RBC 3.74 L Hgb 11.0 L Hct 34.8 L MCV 93.0 MCH 29.4 MCHC 31.6 RDW 14.8 Plt Count 382 MPV 9.3 Gran % Neut % (Auto) 79.4 Lymph % (Auto) 8.9 [place] % (Auto) 8.5 Eos % (Auto) 2.3 Baso % (Auto) 0.6 Neut # (Auto) 7.99 H Lymph # (Auto) 0.9 [place] # (Auto) 0.9 Eos # (Auto) 0.2 Baso # (Auto) 0.1 Absolute Gran (auto) Nucleated RBC % (auto) 0 Nucleated RBCs # 0.0 Sodium 135 L Potassium 4.5 Chloride 105 Carbon Dioxide 20 L Anion Gap 14.5 BUN 13 Creatinine 0.7 GFR Calculation Not Reportable Glucose 136 H Calculated Osmolality 282 L Lactic Acid Calcium 8.7 Total Bilirubin AST ALT Alkaline Phosphatase C-Reactive Protein Total Protein Albumin Globulin Vancomycin Trough Cardiac Studies: 2 No Data to Display
[2020-09-02] MEDS: sodium chloride 0.9% 1,000 ML 30 ML IV (10:30)
[2020-09-02] MEDS: neomycin-poly-bacitracin oint 28 gm 1 APPLIC TOPICAL (12:01)
--- NOTE | 2020-09-02 12:37 | P.OP_ITS ---
Operative Report Date of procedure: September 02, 2020 Pre-op Diagnosis: Critical limb ischemia with no significant flow below common femoral artery Post-op diagnosis: same Procedure Done: Left above-knee amputation Specimens removed/disposition: left Aka stump Surgeon: Jcarlos Diggs Anesthesia: General Estimated blood loss (mL): 20 Tourniquet time (min): 18 Condition: stable Disposition: PACU Procedure: The patient was taken to the operating room and intubated under general anesthesia. The leg leg was prepped and draped in a sterile manner. A tourniquet was placed and Esmarch bandage was applied and tourniquet inflated to 250 mmHg. A fishmouth incision was made about 4 cm superior to the patella with the extension superiorly at the junction between anterior and posterior compartment. Using a 15 blade the skin and subcutaneous tissue was divided anteriorly posteriorly and the muscles of the anterior compartment were divided using electrocautery down to the femur. Periosteal elevator was used to elevate the muscular attachments of the femur for about 3 cm. Using electric saw the femur was divided and the amputation knife was used to divide the muscles of the posterior compartment. The sciatic nerve as well as the superficial femoral artery was clamped suture ligated with 2-0 Vicryl suture and divided. Hemostasis was achieved with electrocautery and subsequently tourniquet was released and there was no further significant bleeding noted. The wound was irrigated and the deep fascia was approximated with interrupted 2-0 Vicryl suture and the subcutaneous tissues approximated using interrupted 2- 0 Vicryl suture and skin was closed with steph. The incision was covered with Adaptic gauze, ABDs, 4 x 4's, Kerlix and Terence wraps. The patient was extubated and transferred to recovery room in stable condition
--- NOTE | 2020-09-02 12:54 | ANE.PACU2 ---
Inpatient post-anesthesia follow up: Airway intact: Yes Vital signs: Temperature 98.9 F Pulse Rate 71 Respiratory Rate 20 Blood Pressure 88/46 Pulse Oximetry 97 Oxygen Delivery Me thod Room Air Oxygen Flow Rate 6 Fraction of Inspir ed Oxygen Hydration adequate: Yes Nausea and vomiting: No Pain level: 2 Additional Comments: Sedated
--- NOTE | 2020-09-02 12:58 | P.PN_ITS ---
Subjective Subjective: Interval history: Mauro reports he is doing okay today. Ready to have surgery. No new complaints. History and physical, daily progress notes reviewed. Medications: Reviewed: Yes Vitals/I&O/Wt Last Vital Signs Temp 98.8 F 09/02/20 12:50 Pulse 83 09/02/20 12:50 Resp 17 09/02/20 12:50 BP 102/38 09/02/20 12:50 Pulse Ox 94 09/02/20 12:50 09/01/20 09/02/20 09/02/20 22:59 06:59 14:59 Intake Total 540 / 590 950 / 950 Output Total 350 / 1000 700 / 1700 350 / 350 Balance 190 / -410 -700 / -1110 600 / 600 Physical Exam Narrative: EXAM NARRATIVE: General exam is no apparent distress Cardiovascular regular rate and rhythm without murmur Lungs clear Abdomen is soft with positive bowel sounds Left groin with steph, no evidence of wound infection Extremities right with amputation, left with no cyanosis clubbing. Dry gangrene noted left lower extremity Data : 09/02/20 06:29 09/02/20 05:14 A&P Assessment and plan (1) Gangrene associated with type 2 diabetes mellitus: Continue Vanco and Zosyn for now. Complete occlusion proximal superficial femoral artery extending to popliteal artery and monophasic flow in common femoral artery noted Surgery is consulted and amputation planned today by Dr. Diggs, left [facility] Status: Acute (2) Peripheral arterial disease: see above Status: Acute (3) COPD (chronic obstructive pulmonary disease): Stable Status: Acute (4) COVID-19: Repeat PCR was sent, but patient was positive for Covid on June 06 for testing.: Status: Acute (5) History of below-knee amputation of right lower extremity: Status: Acute Additional A&P Information CODE STATUS: Full code DVT prophylaxis: Lovenox 40 subcu daily Attestations Medical Necessity Statement*: Needs continued hospitalization for definitive management of gangrene left lower extremity with amputation. 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
[2020-09-02] MEDS: oxyCODONE-APAP 5-325 mg Tablet 1 TAB PO (14:59)
[2020-09-02 15:05] LABS: Coronavirus Test Green County DETECTED
[2020-09-02] MEDS: sennosides-docusate Tablet 1 TAB PO (17:23)
[2020-09-02] MEDS: oxyCODONE-APAP 5-325 mg Tablet PO (17:23)
[2020-09-03] VITALS (13 sets, daily range): BP systolic 117–141; BP diastolic 56–71; PULSE 56–79; RESP 14–24; TEMP 36.4–37.2; O2SAT 91–97
[2020-09-03] MEDS: vancomycin 1,250 MG/250 ML PIGGYBACK 250 MG IV ×2 (03:00→14:00)
[2020-09-03] MEDS: oxyCODONE-APAP 5-325 mg Tablet PO ×3 (03:09→17:46)
[2020-09-03] MEDS: piperacillin-tazobactam 3.375 GM in sodium chloride 0.9% (plus) 50 ML IV ×3 (04:25→20:40)
[2020-09-03 06:56] LABS: Basophils % 0.3 %; Eosinophils # 0.1 10^3/uL (0.0-0.8); Eosinophils % 0.8 %; Hematocrit 33.5 % (42.0-52.0); Hemoglobin 10.6 g/dL (11.7-16.6); Lymphocytes # 0.9 10^3/uL (0.8-4.8); Lymphocytes % 7.6 %; Mean Corpuscular HGB Conc 31.6 g/dL (30.0-36.0); Mean Corpuscular Hemoglobin 29.4 pg (28.0-34.0); Mean Corpuscular Volume 92.8 fL (80-94); Mean Platelet Volume 9.3 fL (7.4-10.4); Monocytes # 1.1 10^3/uL (0.2-0.9); Monocytes % 9.4 %; Neutrophils # 9.48 10^3/uL (1.8-7.7); Neutrophils % 81.3 %; Nucleated Red Blood Cells % 0 %; Platelet Count 375 10^3/cmm (130-400); Red Blood Count 3.61 10^6/uL (4.1-5.3); Red Cell Distribution Width 14.6 % (12.1-15.1); White Blood Count 11.7 10^3/uL (4.0-10.0)
[2020-09-03 07:14] LABS: Anion Gap 14.3 (5-19); Blood Urea Nitrogen 13 mg/dL (8-23); Calcium 8.7 mg/dL (8.5-10.5); Carbon Dioxide 20 mmol/L (22-29); Chloride 99 mmol/L (98-107); Glucose 119 mg/dL (65-115); Osmolality Calculated 269 mOsm/kg (285-295); Potassium 4.3 mmol/L (3.5-5.1); Sodium 129 mmol/L (136-145)
[2020-09-03] MEDS: tamsulosin 0.4 mg Capsule PO (07:31)
[2020-09-03] MEDS: sennosides-docusate Tablet 1 TAB PO ×2 (07:31→17:46)
[2020-09-03] MEDS: docusate sodium 100 mg Capsule PO (07:31)
[2020-09-03] MEDS: ascorbic acid 500 mg Tablet PO (07:31)
[2020-09-03] MEDS: lisinopril 10 mg Tablet PO (07:31)
[2020-09-03] MEDS: gabapentin 300 mg Capsule PO ×3 (07:31→20:40)
[2020-09-03] MEDS: aspirin 81 mg EC Tablet PO (07:31)
[2020-09-03] MEDS: atorvastatin 40 mg Tablet 20 MG PO (07:31)
[2020-09-03] MEDS: pantoprazole DR 40 mg Tablet PO (07:31)
--- NOTE | 2020-09-03 10:51 | PC.SOCIAL ---
IMM Update Pg.2 of IMM updated and reviewed with patient, who verbalized understanding. Copy provided.
--- NOTE | 2020-09-03 10:58 | PM.PN ---
Subjective Subjective: Interval history: Mauro reports he is doing okay. Pain is under control. No new concerns. Medications: Reviewed: Yes Vitals/I&O/Wt Last Vital Signs Temp 97.5 F L 09/03/20 07:56 Pulse 56 L 09/03/20 07:56 Resp 16 09/03/20 07:56 BP 141/56 09/03/20 07:56 Pulse Ox 96 09/03/20 07:56 09/02/20 09/03/20 09/03/20 22:59 06:59 14:59 Intake Total 250 / 1250 50 / 1300 360 / 360 Output Total 350 / 700 0 / 700 Balance -100 / 550 50 / 600 360 / 360 Physical Exam Narrative: EXAM NARRATIVE: General exam is no apparent distress Cardiovascular regular rate and rhythm without murmur Lungs clear Abdomen is soft with positive bowel sounds Left groin with steph, no evidence of wound infection Extremities right with amputation, left with amputation and dressing which is clean and dry Urinary Catheter Management^: Collins: Cath Placed During This Visit: yes Reason for Continuing Indwelling Catheter: Acute Urinary Retention or Obstruction Urinary Catheter Date of Insertion: 09/02/20 Urinary Catheter Time of Insertion: 17:08 Data : 09/03/20 06:16 09/03/20 06:16 A&P Assessment and plan (1) Gangrene associated with type 2 diabetes mellitus: Continue Vanco and Zosyn for now. Will not need IV antibiotics on discharge Complete occlusion proximal superficial femoral artery extending to popliteal artery and monophasic flow in common femoral artery noted Postoperative day #1 status post left BKA Status: Acute (2) Peripheral arterial disease: see above Status: Acute (3) COPD (chronic obstructive pulmonary disease): Stable Status: Acute (4) COVID-19: Repeat PCR was sent, but patient was positive for Covid on June 06 for testing.: Status: Acute (5) History of below-knee amputation of right lower extremity: Status: Acute Additional A&P Information Hyponatremia. Repeat laboratory tomorrow. Not severe currently. CODE STATUS: Full code DVT prophylaxis: Lovenox 40 subcu daily Attestations Medical Necessity Statement*: Needs continued hospitalization for close monitoring status post amputation left lower extremity Coding Level of Care Code Acute Cherry Cutter for telly Ozuna Diagnoses Gangrene associated with type 2 diabetes mellitus E11.52 Peripheral arterial disease I73.9 COPD (chronic obstructive pulmonary disease) J44.9 COVID-19 U07.1 History of below-knee amputation of right lower extremity Z89.511
--- NOTE | 2020-09-03 14:14 | PM.PN ---
Subjective Subjective: Interval history: Patient had a Collins catheter placed yesterday, pain is controlled, tolerating a regular diet Vitals/I&O/Wt Last Vital Signs Temp 99.0 F 09/03/20 11:53 Pulse 76 09/03/20 11:53 Resp 14 09/03/20 11:53 BP 120/64 09/03/20 11:53 Pulse Ox 94 09/03/20 11:53 09/02/20 09/03/20 09/03/20 22:59 06:59 14:59 Intake Total 250 / 1550 300 / 1550 650 / 650 Output Total 350 / 700 0 / 700 900 / 900 Balance -100 / 850 300 / 850 -250 / -250 Physical Exam Narrative: EXAM NARRATIVE: Abdomen: Soft left lower extremity: Morrow removed from the groin, dressings dry and intact Urinary Catheter Management^: Collins: Cath Placed During This Visit: yes Reason for Continuing Indwelling Catheter: Acute Urinary Retention or Obstruction Urinary Catheter Date of Insertion: 09/02/20 Urinary Catheter Time of Insertion: 17:08 Data : 09/03/20 06:16 09/03/20 06:16 A&P Assessment and plan (1) Above knee amputation of left lower extremity: 80-year-old male status post above-knee amputation for critical ischemia of left lower extremity DC Collins today Continue IV antibiotics for 24 hours Patient should be able to go to a penitentiary in the next 24 hours Status: Acute Attestations Medical Necessity Statement*: Status post left AKA Coding Level of Care Code Acute Tobacco Checkout Clerk for Oniel Fwanahy Diagnoses Above knee amputation of left lower extremity S78.112A
--- NOTE | 2020-09-03 18:26 | PC.NURSE ---
SHIFT SUMMARY PATIENT'S PAIN HAS BEEN WELL CONTROLLED TODAY. EXCELLENT URINE OUTPUT. GOOD PO INTAKE. DR. BERRY REMOVED SUMA FROM A PREVIOUS INCISION ON PATIENT'S LEFT LOWER GROIN. NO CONCERNS AT THIS TIME.
[2020-09-04] VITALS (7 sets, daily range): BP systolic 110–143; BP diastolic 66–89; PULSE 51–78; RESP 16–18; TEMP 36.6–36.9; O2SAT 92–95
[2020-09-04] MEDS: vancomycin 1,250 MG/250 ML PIGGYBACK 250 MG IV ×2 (02:11→16:20)
[2020-09-04] MEDS: piperacillin-tazobactam 3.375 GM in sodium chloride 0.9% (plus) 50 ML IV ×2 (04:33→11:37)
--- NOTE | 2020-09-04 05:18 | PC.NURSE ---
SHIFT SUMMARY Has rested well tonight. Has been offered pain med several times but has declined each time. Wants to go home. Says Dr wants him to go to the [facility] for awhile but he does not want to do this. Says has help at home and can't afford SNF. Receiving IV antibiotics. Dressing/harpreet wrap to Left AKA is clean & dry. Collins draining without difficulty.
[2020-09-04 07:44] LABS: Anion Gap 16.3 (5-19); Blood Urea Nitrogen 10 mg/dL (8-23); Carbon Dioxide 19 mmol/L (22-29); Chloride 99 mmol/L (98-107); Glucose 120 mg/dL (65-115); Osmolality Calculated 270 mOsm/kg (285-295); Potassium 4.3 mmol/L (3.5-5.1); Sodium 130 mmol/L (136-145)
[2020-09-04] MEDS: pantoprazole DR 40 mg Tablet PO (08:34)
[2020-09-04] MEDS: ascorbic acid 500 mg Tablet PO (08:34)
[2020-09-04] MEDS: sennosides-docusate Tablet 1 TAB PO ×2 (08:34→19:18)
[2020-09-04] MEDS: docusate sodium 100 mg Capsule PO (08:34)
[2020-09-04] MEDS: gabapentin 300 mg Capsule PO ×2 (08:34→16:20)
[2020-09-04] MEDS: atorvastatin 40 mg Tablet 20 MG PO (08:34)
[2020-09-04] MEDS: lisinopril 10 mg Tablet PO (08:34)
[2020-09-04] MEDS: aspirin 81 mg EC Tablet PO (08:34)
[2020-09-04] MEDS: tamsulosin 0.4 mg Capsule PO (08:35)
--- NOTE | 2020-09-04 09:38 | PM.PN ---
Subjective Subjective: Interval history: Mauro reports he is doing okay. Pain is under control. Awaiting placement. Medications: Reviewed: Yes Vitals/I&O/Wt Last Vital Signs Temp 98.4 F 09/04/20 07:44 Pulse 70 09/04/20 07:55 Resp 16 09/04/20 07:55 BP 134/89 09/04/20 07:44 Pulse Ox 94 09/04/20 07:55 09/03/20 09/04/20 09/04/20 22:59 06:59 14:59 Intake Total 300 / 950 500 / 1450 360 / 360 Output Total 1500 / 2400 400 / 2800 Balance -1200 / -1450 100 / -1350 360 / 360 Physical Exam Narrative: EXAM NARRATIVE: General exam is no apparent distress Cardiovascular regular rate and rhythm without murmur Lungs clear Abdomen is soft with positive bowel sounds Left groin with steph, no evidence of wound infection Extremities right with amputation, left with amputation and dressing Urinary Catheter Management^: Collins: Cath Placed During This Visit: yes Reason for Continuing Indwelling Catheter: Acute Urinary Retention or Obstruction Urinary Catheter Date of Insertion: 09/02/20 Urinary Catheter Time of Insertion: 17:08 Data : 09/03/20 06:16 09/04/20 06:45 A&P Assessment and plan (1) Gangrene associated with type 2 diabetes mellitus: Continue Vanco and Zosyn for now. Will not need IV antibiotics on discharge Complete occlusion proximal superficial femoral artery extending to popliteal artery and monophasic flow in common femoral artery noted Postoperative day #2 status post left BKA Status: Resolved (2) Peripheral arterial disease: see above Status: Resolved (3) COPD (chronic obstructive pulmonary disease): Stable Status: Acute (4) COVID-19: Repeat PCR was sent, but patient was positive for Covid on June 06 for testing.: Status: Acute (5) History of below-knee amputation of right lower extremity: Status: Acute Additional A&P Information Hyponatremia. Slightly better. Continue to follow CODE STATUS: Full code DVT prophylaxis: Lovenox 40 subcu daily Attestations Medical Necessity Statement*: Needs continued hospitalization pending placement Coding Level of Care Code Acute Cigarette Packing Machine Operator for [facility] Diagnoses Gangrene associated with type 2 diabetes mellitus E11.52 Peripheral arterial disease I73.9 COPD (chronic obstructive pulmonary disease) J44.9 COVID-19 U07.1 History of below-knee amputation of right lower extremity Z89.511
[2020-09-04 10:00] LABS: Basophils # 0.1 10^3/uL (0.0-0.1); Basophils % 0.6 %; Eosinophils # 0.1 10^3/uL (0.0-0.8); Eosinophils % 0.6 %; Hemoglobin 10.7 g/dL (11.7-16.6); Lymphocytes # 0.5 10^3/uL (0.8-4.8); Lymphocytes % 5.2 %; Mean Corpuscular HGB Conc 32.4 g/dL (30.0-36.0); Mean Corpuscular Hemoglobin 29.3 pg (28.0-34.0); Mean Corpuscular Volume 90.4 fL (80-94); Mean Platelet Volume 9.1 fL (7.4-10.4); Monocytes # 0.8 10^3/uL (0.2-0.9); Monocytes % 8.1 %; Neutrophils # 8.36 10^3/uL (1.8-7.7); Neutrophils % 85.2 %; Nucleated Red Blood Cells % 0 %; Platelet Count 382 10^3/cmm (130-400); Red Blood Count 3.65 10^6/uL (4.1-5.3); Red Cell Distribution Width 14.5 % (12.1-15.1); White Blood Count 9.8 10^3/uL (4.0-10.0)
[2020-09-04] MEDS: oxyCODONE-APAP 5-325 mg Tablet PO (11:39)
--- NOTE | 2020-09-04 14:39 | P.DS_ITS ---
Discharge Providers Date of Admission: 08/29/20 14:55 Date of Discharge: September 04, 2020 Attending Provider at Admission: Asa Dominguez MD Attending Provider at Discharge: Rico Elliott MD Primary Care Provider: ANNE MARIE Beverly Diagnoses at Discharge Discharge Diagnosis (1) Gangrene associated with type 2 diabetes mellitus: Status: Resolved (2) Peripheral arterial disease: Status: Resolved (3) COPD (chronic obstructive pulmonary disease): Status: Acute (4) COVID-19: Status: Acute (5) History of below-knee amputation of right lower extremity: Status: Acute Reason for Visit Reason for Visit: Left Lower Extremity cellulitis with gangrene Hospital Course Hospital Course Mauro is a 80-year-old white male who presented to the hospital on August 29 with gangrene of the left lower extremity. Podiatry was consulted, and ultimately general surgery. He had well-known severe peripheral vascular disease that had failed peripheral interventions. He was placed on broad- spectrum antibiotics. It was recommended that he have a left below the knee amputation. He underwent surgery on September 02, and had no complications following the procedure. He continued to recover and by September 04 he was appropriate for discharge from the hospital to skilled care. This was arranged. Note that the patient also was positive for Covid infection June 06 and recovered from this. He has no symptoms of Covid currently. Physical Exam Narrative: EXAM NARRATIVE: See exam done earlier today Urinary Catheter Management^: Collins: Cath Placed During This Visit: yes Reason for Continuing Indwelling Catheter: Acute Urinary Retention or Obstruction Urinary Catheter Date of Insertion: 09/02/20 Urinary Catheter Time of Insertion: 17:08 Discharge Data Data Completed and Pending: Completed Studies During Hospitalization Category Date Time Status CT foot LT wo con * [id number] Routine Cat Scan 08/30/20 08:30 Completed Pathology: Surgic al [PTH] Routine Pth 09/02/20 12:35 [place] [id number] Rout ine Ultrasound 08/31/20 10:38 Completed Pending at discharge Category Date Time Status Basic Metabolic P mp AM LABS Lab 09/05/20 04:00 Ordered Labs from last 24 hours 09/04/20 09/04/20 09/04/20 09:47 06:45 06:45 WBC 9.8 Cancelled Corrected WBC Cancelled RBC 3.65 L Cancelled Hgb 10.7 L Cancelled Hct 33.0 L Cancelled MCV 90.4 Cancelled MCH 29.3 Cancelled MCHC 32.4 Cancelled RDW 14.5 Cancelled Plt Count 382 Cancelled MPV 9.1 Cancelled Gran % Cancelled Neut % (Auto) 85.2 Cancelled Lymph % (Auto) 5.2 Cancelled Ford % (Auto) 8.1 Cancelled Eos % (Auto) 0.6 Cancelled Baso % (Auto) 0.6 Cancelled Neut # (Auto) 8.36 H Cancelled Lymph # (Auto) 0.5 L Cancelled Ford # (Auto) 0.8 Cancelled Eos # (Auto) 0.1 Cancelled Baso # (Auto) 0.1 Cancelled Absolute Gran (aut o) Cancelled Nucleated RBC % (a uto) 0 Cancelled Nucleated RBCs # 0.0 Cancelled Sodium 130 L Potassium 4.3 Chloride 99 Carbon Dioxide 19 L Anion Gap 16.3 BUN 10 Creatinine 0.5 L GFR Calculation Not Reportable Glucose 120 H Calculated Osmolal ity 270 L Calcium 8.0 L Vitals: Last Vital Signs Temp 98.5 F 09/04/20 11:30 Pulse 78 09/04/20 11:30 Resp 17 09/04/20 11:39 BP 143/68 09/04/20 11:30 Pulse Ox 94 09/04/20 11:39 Discharge Plan Discharge Patient Disposition: Xfer SNF Condition: Stable Prescriptions: New oxycodone-acetaminophen 5-325 mg Tablet 1 tab PO Q4H PRN (Reason: Severe Pain) Qty: 20 RF: 0 Continued ramipril 2.5 mg capsule 2.5 mg PO DAILY RF: 0 aspirin 81 mg tablet,delayed release (DR/EC) 81 mg PO DAILY RF: 0 Xarelto 2.5 mg tablet 2.5 mg PO DAILY RF: 0 clopidogrel [Plavix] 75 mg tablet 75 mg PO DAILY RF: 0 docusate sodium [Colace] 100 mg capsule 100 mg PO BID RF: 0 ibuprofen 600 mg tablet 600 mg PO Q8H PRN (Reason: Pain) RF: 0 gabapentin 300 mg capsule 300 mg PO TID Qty: 270 RF: 0 tamsulosin 0.4 mg capsule See Rx Instructions .ROUTE .COMPLEX Qty: 90 RF: 0 glipizide 5 mg tablet See Rx Instructions .ROUTE .COMPLEX Qty: 45 RF: 0 simvastatin 40 mg tablet 40 mg PO DAILY Qty: 90 RF: 0 alendronate 70 mg tablet See Rx Instructions .ROUTE .COMPLEX Qty: 12 RF: 0 omeprazole 20 mg capsule,delayed release(DR/EC) 20 mg PO BID RF: 0 fluticasone propion-salmeterol [Advair Diskus] 250-50 mcg/dose Blister With Device 1 puff inhalation BID.RESPIRATORY Qty: 1 RF: 0 Spiriva with HandiHaler 18 mcg Capsule, W/Inhalation Device 18 mcg inhalation DAILY.RESPIRATORY Qty: 1 RF: 0 albuterol sulfate [Ventolin HFA] 90 mcg/actuation Hfa Aerosol Inhaler 2 puff inhalation Q4H.RESPIRATORY PRN (Reason: Shortness Of Breath) Qty: 18 RF: 0 Discharge Orders: Discharge Order (Routine); Ordered 09/04/20 Ordered By: Rico Elliott Referrals: [facility] [Outside] - 1-3 days (Follow-up with primary care provider at nursing home facility) Jcarlos Dgigs MD [Physician] - 7-10 days Discharge Diet: Diabetic Discharge Activity: Increase activity as tolerated Activity Restrictions/Additional Instructions: Weightbearing instructions, and wound care per surgery. Discharge Attestations Time Spent in Discharge Care*: greater than 30 min Status at Discharge: Cognitive status at discharge: cognitively intact , Behavioral status at discharge: cooperative and independent in ADL's , Quality Metrics Clinical Quality Measures During this hospital stay, did patient experience: None Coding Level of Care Code Acute Police Sergeant for [facility] Diagnoses Gangrene associated with type 2 diabetes mellitus E11.52 Peripheral arterial disease I73.9 COPD (chronic obstructive pulmonary disease) J44.9 COVID-19 U07.1 History of below-knee amputation of right lower extremity Z89.511
--- NOTE | 2020-09-04 14:55 | P.PN_ITS ---
Subjective Subjective: Interval history: Patient doing well denies significant pain, tolerating regular diet Vitals/I&O/Wt Last Vital Signs Temp 98.5 F 09/04/20 11:30 Pulse 78 09/04/20 11:30 Resp 17 09/04/20 11:39 BP 143/68 09/04/20 11:30 Pulse Ox 94 09/04/20 11:39 09/03/20 09/04/20 09/04/20 22:59 06:59 14:59 Intake Total 300 / 1450 500 / 1450 650 / 650 Output Total 1500 / 2800 400 / 2800 Balance -1200 / -1350 100 / -1350 650 / 650 Physical Exam Narrative: EXAM NARRATIVE: Left AKA stump: Incision clean dry and intact, small ecchymosis on the inferior aspect of the incision Urinary Catheter Management^: Collins: Cath Placed During This Visit: yes Reason for Continuing Indwelling Catheter: Acute Urinary Retention or Obstruction Urinary Catheter Date of Insertion: 09/02/20 Urinary Catheter Time of Insertion: 17:08 Data : 09/04/20 09:47 09/04/20 06:45 A&P Assessment and plan (1) Above knee amputation of left lower extremity: 80-year-old male status post above-knee amputation for critical ischemia of left lower extremity [facility] Status: Acute Attestations Medical Necessity Statement*: s/p aka d/c to [facility] today Coding Level of Care Code Acute Reservations Sales Supervisor for Oniel Ozuna Diagnoses Above knee amputation of left lower extremity S78.112A
[2020-09-04] MEDS: neomycin-poly-bacitracin oint 28 gm 1 APPLIC TOPICAL (19:18)
--- NOTE | 2020-09-04 20:15 | PC.NURSE ---
Discharge Pt. taken by wheelchair to transport van for transfer to [facility]. Pt. alert and oriented, IV removed by this nurse. All personal belongings and discharge packet taken with patient.
== END 2020-09-04 20:15 | disposition skilled nursing facility (03) | DRG 240 ==
PROVIDERS: Surgery; Admitting Provider Internal Medicine; PCP Nurse Practitioner Family; Visit Provider Internal Medicine
PROC: 0Y6G0ZZ Detachment at Left Knee Region, Open Approach (ICD-10-PCS; CPT 27590; principal; 2020-09-02 10:45)
DX: E11.52 Type 2 diabetes mellitus with diabetic peripheral angiopathy with gangrene (principal); I27.82 Chronic pulmonary embolism; I96 Gangrene, not elsewhere classified; Z89.511 Acquired absence of right leg below knee; E11.51 Type 2 diabetes mellitus with diabetic peripheral angiopathy without gangrene; Z79.82 Long term (current) use of aspirin; Z79.01 Long term (current) use of anticoagulants; Z79.02 Long term (current) use of antithrombotics/antiplatelets; I10 Essential (primary) hypertension; I25.10 Atherosclerotic heart disease of native coronary artery without angina pectoris; Z95.1 Presence of aortocoronary bypass graft; J43.9 Emphysema, unspecified; K21.9 Gastro-esophageal reflux disease without esophagitis; E03.9 Hypothyroidism, unspecified; E78.2 Mixed hyperlipidemia; Z86.711 Personal history of pulmonary embolism; Z87.891 Personal history of nicotine dependence
CPT/HCPCS: 12345; 36415; 36416; 51702; 51798; 73700; 80048; 80053; 80202; 82962; 83605; 85025; 85610; 85651; 86140; 86141; 87635; 88307; 93926; 94640; 97161; 97165; 97530; 99212; J0330; J0690; J1100; J2250; J2370; J2405; J2543; J2704; J2710; J3010; J3370; J3490; J7030

== ENCOUNTER 2020-09-18 09:26 | Emergency (ER) | payer MEDICARE, MEDICAID, SELFPAY ==
[2020-09-18] VITALS (7 sets, daily range): BP systolic 98–124; BP diastolic 51–67; PULSE 83–89; RESP 16–28; TEMP 36.8; O2SAT 95–100; BMI 24.1
--- NOTE | 2020-09-18 09:57 | PC.NURSE ---
Left forearm IV present on arrival to the ER, but infiltrated. New one IV on right forearm
--- NOTE | 2020-09-18 10:12 | XR_ITS ---
WS: [id number] Portable AP upright chest, 09/18/2020 Clinical Data: Respiratory distress / Tachypnea Comparison: Portable chest, 06/19/2020. Findings: No nodules or masses are seen. There is a small left effusion. The heart is normal. The pul monary vascularity is not increased. No pneumonia or pneumothorax is seen. Minimal patchy opacities a re present throughout both lungs but have diminished compared to the prior x-ray. Midline sternotomy sutures are present. The aortic arch shows calcification and tortuosity. There are monitor leads on t he chest wall. XR/XR chest 1V portable [id number] Impression: 1.Atherosclerosis and hyperinflation. 2.Small left effusion.
[2020-09-18 10:42] LABS: Basophils # 0.1 10^3/uL (0.0-0.1); Basophils % 0.3 %; Eosinophils % 0.2 %; Hematocrit 35.1 % (42.0-52.0); Hemoglobin 11.2 g/dL (11.7-16.6); Lymphocytes # 0.6 10^3/uL (0.8-4.8); Lymphocytes % 3.1 %; Mean Corpuscular HGB Conc 31.9 g/dL (30.0-36.0); Mean Corpuscular Hemoglobin 29.3 pg (28.0-34.0); Mean Corpuscular Volume 91.9 fL (80-94); Mean Platelet Volume 9.7 fL (7.4-10.4); Monocytes # 0.9 10^3/uL (0.2-0.9); Monocytes % 4.5 %; Neutrophils # 17.94 10^3/uL (1.8-7.7); Neutrophils % 91.1 %; Nucleated Red Blood Cells % 0 %; Platelet Count 290 10^3/cmm (130-400); Red Blood Count 3.82 10^6/uL (4.1-5.3); Red Cell Distribution Width 14.7 % (12.1-15.1); White Blood Count 19.7 10^3/uL (4.0-10.0)
[2020-09-18 10:50] LABS: Add Urine Microscopic? YES; Bilirubin Urine Neg (Negative); Blood Urine 3+ (Negative); Glucose Urine UA Norm (Normal); Ketones Urine Negative (Negative); Leukocyte Esterase Urine 2+ (Negative); Nitrate Urine Negative (Negative); Protein Urine 1+ (Negative); Urine Appearance Cloudy (CLEAR); Urine Color Yellow (Yellow); Urobilinogen Urine 4 mg/dL (Negative); pH Urine 6 (5-7)
[2020-09-18 10:50] LABS: D Dimer 3.19 ug/mIFEU (0-0.59)
[2020-09-18 10:52] LABS: Add Urine Culture? Yes; Bacteria Urine 4+ /hpf; WBC Urine TOO NUMEROUS TO CNT /hpf (0-5)
[2020-09-18 10:54] LABS: Lactate (Lactic Acid level) 1.7 mmol/L (0.5-2.2)
[2020-09-18 10:55] LABS: Alanine Aminotransferase 9 U/L (0-41); Albumin Level 3.3 g/dL (3.5-5.2); Alkaline Phosphatase 94 IU/L (40-130); Blood Urea Nitrogen 18 mg/dL (8-23); C Reactive Protein 204.9 mg/L (0.0-4.9); Calcium 8.2 mg/dL (8.5-10.5); Carbon Dioxide 22 mmol/L (22-29); Chloride 94 mmol/L (98-107); Globulin 2.2 g/dL (1.3-4.6); Glucose 171 mg/dL (65-115); Osmolality Calculated 272 mOsm/kg (285-295); Sodium 128 mmol/L (136-145); Total Bilirubin 0.5 mg/dL (0.15-1.2); Total Protein 5.5 g/dL (6.6-8.7)
[2020-09-18 11:00] LABS: Anion Gap 16.4 (5-19); Aspartate Amino Transferase 16 U/L (0-40); Potassium 4.4 mmol/L (3.5-5.1)
--- NOTE | 2020-09-18 11:01 | CT_ITS ---
WS: [id number] CT CHEST ANGIOGRAPHY WITH REFORMATS HISTORY: Recent surgery, tachypnea, marked elevation Dimer TECHNIQUE: Contiguous axial images are obtained through the chest during arterial injection of intrav enous contrast. Images are reconstructed to evaluate the pulmonary arteries. MIP imaging also reviewe d. All CT scans at [facility] use at least one of these dose optimization techniques: aut omated exposure control; mA and/or kV adjustment per patient size (includes targeted exams where dose is matched to clinical indication); or iterative reconstruction. CONTRAST: Omnipaque 350; 95 mL IV. DLP: 574.84 mGy.cm COMPARISON: 06/14/2020 Very good opacification of the pulmonary arteries. There are no filling defects or pulmonary emboli. Normal size pulmonary artery. Moderate atherosclerosis aorta with no aneurysm. Heart size is normal. No pericardial or pleural effusions. Emphysema. Interstitial thickening bilaterally has moderately improved since 06/14/2020. Mild dependen t changes at the LEFT lung base. No adenopathy. Largest lymph node at the RIGHT hilum measures 10 mm. Prior CABG. Moderate size hiatal hernia. Tricuspid regurgitation into hepatic veins. Mild hyperplasia of the adrenal glands, LEFT greater than RIGHT. Gallbladder is contracted and there is cholelithiasis. Bilateral healed rib fractures. CT/CT angio chest PE protcl [id number] IMPRESSION: 1. No pulmonary embolism. 2. Severe emphysema. Overall improvement in the aeration of both lungs since . 3. Cholelithiasis within a contracted gallbladder.
--- NOTE | 2020-09-18 11:05 | ED_ITS ---
HPI - General Adult General: Chief complaint: General Medical Stated complaint: UTI Time Seen by Provider: 09/18/20 09:33 History of Present Illness: HPI narrative: 80-year-old male into the emergency department over concerns of an infection. The long term sent him in after there was concerns of possible urinary tract infection or pneumonia. Patient is a very poor historian unable to fill in much of the details. He had a recent amputation of the lower extremity about 1 month earlier. Patient's had some difficulty with urinary retention and urinary tract infections in the past. Patient had blood pressure on the lower side at the long term. He denies any fever chills. 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 Enrolled in chronic care management GERD (gastroesophageal reflux disease) History of GI bleed Hx pulmonary embolism Hyperlipemia, mixed Hypothyroidism -Noted elevated TSH, normal free T4 -Continue levothyroxine Peripheral arterial disease PVD (peripheral vascular disease) Type 2 diabetes mellitus with complication, without long-term current use of insulin -A1c at goal-6.2 -Accuchecks, ISS, hypoglycemia precautions -consistent carb diet as tolerated Surgical History H/O cataract extraction RIGHT Hx of CABG Family History Mother Diabetes Hypertension Other CAD (coronary artery disease) Myocardial infarction Social History Smoking and tobacco status: former smoker Second hand smoke exposure: No Smoking risk assessment/counseling performed?: No Alcohol intake: never Desire information about alcohol rehabilitation?: No Counseling given: No Desire information about substance/drug rehabilitation?: No Counseling given: No Lives independently: Yes Household members: spouse Marital status: Current occupational status: retired History of recent travel: No Current gender identity: Male Physical Exam Const: COMMON NORMALS: no acute distress and alert HENMT: COMMON NORMALS: normocephalic HEAD & SCALP: normal to inspection and normocephalic Neck/C-Spine: COMMON NORMALS: no JVD Resp: COMMON NORMALS: clear to auscultation bilaterally EFFORT & INSPECTION: Yes able to speak in complete sentences AUSCULTATION: clear to auscultation bilaterally Cardio: COMMON NORMALS: no JVD, S1 normal heart sound present and S2 normal heart sound present HEART SOUNDS: S1 normal heart sound present and S2 normal heart sound present GI: COMMON NORMALS: Normal to inspection, nondistended, normoactive bowel sounds present INSPECTION: Yes normal to inspection : COMMON NORMALS: Yes no CVA tenderness BLADDER/KIDNEY EXAM: Yes no CVA tenderness Back/Pelvis: COMMON NORMALS: no CVA tenderness Neuro: COMMON NORMALS: CN's II-XII intact bilaterally, moves all extremities and no focal motor deficits SENSORIUM/ORIENTATION: Yes alert Skin: COMMON NORMALS: no rashes or lesions noted GENERAL SKIN EXAM: no rashes or lesions noted Course Vital Signs: Vital signs: Vital Signs Temperature 98.2 F 09/18/20 09:27 Pulse Rate 88 09/18/20 12:02 Respiratory Rate 28 H 09/18/20 12:02 Blood Pressure 98/51 09/18/20 12:02 Pulse Oximetry 98 09/18/20 12:02 MDM - General Adult MDM Narrative: Medical decision making narrative: 80-year-old male sent in by the long term over concerns of possible infection. Information is very limited at this point. We will start with routine labs and evaluation and expand as indicated. His blood pressure is a little on the low side will give fluid bolus and reassess. Patient's blood pressure came up nicely we are concerned over urinary retention so I placed indwelling Collins catheter and treated him with antibiotics for concerns of a urinary tract infection. He desired to go back to the long term and I think his vital signs are stable to do so now. He will need ongoing treatment for his urinary tract infection and follow-up on the culture. Lab Data: Labs: Lab Results 09/18/20 09/18/20 09/18/20 Range/Units 09:47 09:47 09:47 WBC 19.7 H (4.0-10.0) 10^3/ uL RBC 3.82 L (4.1-5.3) 10^6/u L Hgb 11.2 L (11.7-16.6) g/dL Hct 35.1 L (42.0-52.0) % MCV 91.9 (80-94) fL MCH 29.3 (28.0-34.0) pg MCHC 31.9 (30.0-36.0) g/dL RDW 14.7 (12.1-15.1) % Plt Count 290 (130-400) 10^3/c mm MPV 9.7 (7.4-10.4) fL Neut % (Auto) 91.1 % Lymph % (Auto) 3.1 % [place] % (Auto) 4.5 % Eos % (Auto) 0.2 % Baso % (Auto) 0.3 % Neut # (Auto) 17.94 H (1.8-7.7) 10^3/u L Lymph # (Auto) 0.6 L (0.8-4.8) 10^3/u L [place] # (Auto) 0.9 (0.2-0.9) 10^3/u L Eos # (Auto) 0.0 (0.0-0.8) 10^3/u L Baso # (Auto) 0.1 (0.0-0.1) 10^3/u L Nucleated RBC % (a uto) 0 % Nucleated RBCs # 0.0 /100WBC D-Dimer 3.19 H (0-0.59) ug/mIFE U Sodium 128 L (136-145) mmol/L Potassium 4.4 (3.5-5.1) mmol/L Chloride 94 L (98-107) mmol/L Carbon Dioxide 22 (22-29) mmol/L Anion Gap 16.4 (5-19) BUN 18 (8-23) mg/dL Creatinine 0.6 L (0.7-1.2) mg/dL GFR Calculation Not Reportable Glucose 171 H (65-115) mg/dL Calculated Osmolal ity 272 L (285-295) mOsm/k g Lactate (0.5-2.2) mmol/L Calcium 8.2 L (8.5-10.5) mg/dL Total Bilirubin 0.5 (0.15-1.2) mg/dL AST 16 (0-40) U/L ALT 9 (0-41) U/L Alkaline Phosphata se 94 (40-130) IU/L C-Reactive Protein 204.9 H (0.0-4.9) mg/L Total Protein 5.5 L (6.6-8.7) g/dL Albumin 3.3 L (3.5-5.2) g/dL Globulin 2.2 (1.3-4.6) g/dL Urine Color (Yellow) Urine Appearance (CLEAR) Urine pH (5-7) Ur Specific Gravit y (1.005-1.030) Urine Protein (Negative) Urine Glucose (UA) (Normal) Urine Ketones (Negative) Urine Blood (Negative) Urine Nitrate (Negative) Urine Bilirubin (Negative) Urine Urobilinogen (Negative) mg/dL Ur Leukocyte Paula ase (Negative) Urine RBC (0-2) /hpf Urine WBC (0-5) /hpf Ur Squamous Epith Cells (0-5) /hpf Amorphous Sediment Urine Bacteria (NONE) /hpf 09/18/20 09/18/20 Range/Units 09:47 09:54 WBC (4.0-10.0) 10^3/ uL RBC (4.1-5.3) 10^6/u L Hgb (11.7-16.6) g/dL Hct (42.0-52.0) % MCV (80-94) fL MCH (28.0-34.0) pg MCHC (30.0-36.0) g/dL RDW (12.1-15.1) % Plt Count (130-400) 10^3/c mm MPV (7.4-10.4) fL Neut % (Auto) % Lymph % (Auto) % [place] % (Auto) % Eos % (Auto) % Baso % (Auto) % Neut # (Auto) (1.8-7.7) 10^3/u L Lymph # (Auto) (0.8-4.8) 10^3/u L [place] # (Auto) (0.2-0.9) 10^3/u L Eos # (Auto) (0.0-0.8) 10^3/u L Baso # (Auto) (0.0-0.1) 10^3/u L Nucleated RBC % (a uto) % Nucleated RBCs # /100WBC D-Dimer (0-0.59) ug/mIFE U Sodium (136-145) mmol/L Potassium (3.5-5.1) mmol/L Chloride (98-107) mmol/L Carbon Dioxide (22-29) mmol/L Anion Gap (5-19) BUN (8-23) mg/dL Creatinine (0.7-1.2) mg/dL GFR Calculation Glucose (65-115) mg/dL Calculated Osmolal ity (285-295) mOsm/k g Lactate 1.7 (0.5-2.2) mmol/L Calcium (8.5-10.5) mg/dL Total Bilirubin (0.15-1.2) mg/dL AST (0-40) U/L ALT (0-41) U/L Alkaline Phosphata se (40-130) IU/L C-Reactive Protein (0.0-4.9) mg/L Total Protein (6.6-8.7) g/dL Albumin (3.5-5.2) g/dL Globulin (1.3-4.6) g/dL Urine Color Yellow (Yellow) Urine Appearance Cloudy (CLEAR) Urine pH 6 (5-7) Ur Specific Gravit y 1.020 (1.005-1.030) Urine Protein 1+ H (Negative) Urine Glucose (UA) Norm (Normal) Urine Ketones Negative (Negative) Urine Blood 3+ H (Negative) Urine Nitrate Negative (Negative) Urine Bilirubin Neg (Negative) Urine Urobilinogen 4 H (Negative) mg/dL Ur Leukocyte Paula ase 2+ H (Negative) Urine RBC 10-15 H (0-2) /hpf Urine WBC Too numerous to c nt H (0-5) /hpf Ur Squamous Epith Cells None (0-5) /hpf Amorphous Sediment Not Reportable Urine Bacteria 4+ H (NONE) /hpf Discharge Plan Discharge Prescriptions: No Action ramipril 2.5 mg capsule 2.5 mg PO DAILY@0800 RF: 0 aspirin 81 mg tablet,delayed release (DR/EC) 81 mg PO DAILY@0800 RF: 0 Xarelto 2.5 mg tablet 2.5 mg PO DAILY@0800 RF: 0 clopidogrel [Plavix] 75 mg tablet 75 mg PO DAILY@0800 RF: 0 docusate sodium [Colace] 100 mg capsule 100 mg PO BID@0800,1999 RF: 0 ibuprofen 600 mg tablet 600 mg PO Q8H PRN (Reason: Pain) RF: 0 oxycodone-acetaminophen 5-325 mg Tablet 1 tab PO Q4H PRN (Reason: Severe Pain) Qty: 20 RF: 0 Miralax 17 gram Powder In Packet 17 g PO DAILY PRN (Reason: Constipation) RF: 0 Senna-S 8.6-50 mg Tablet 1 tab-cap PO DAILY PRN (Reason: Constipation) RF: 0 Milk of Magnesia 400 mg/5 mL Suspension 400 mg PO DAILY PRN (Reason: Constipation) RF: 0 bisacodyl 10 mg Suppository 10 mg LA DAILY PRN (Reason: Constipation) RF: 0 Enema Disposable 19-7 gram/118 mL Enema 118 ml LA DAILY PRN (Reason: Constipation) RF: 0 Novolog Flexpen U-100 Insulin 100 unit/mL (3 mL) Insulin Pen 100 unit SUBCUT QID RF: 0 Advair Diskus 250-50 mcg/dose blister with device 1 puff inhalation BID@ RF: 0 alendronate 70 mg tablet 70 mg PO Q7D RF: 0 simvastatin 40 mg tablet 40 mg PO DAILY@1999 RF: 0 tamsulosin 0.4 mg capsule 0.4 mg PO DAILY@1999 RF: 0 gabapentin 300 mg capsule 300 mg PO TID@08,, RF: 0 Ventolin HFA 90 mcg/actuation HFA aerosol inhaler 2 puff inhalation Q4H PRN (Reason: Shortness Of Breath) RF: 0 Spiriva with HandiHaler 18 mcg capsule, w/inhalation device 18 mcg inhalation DAILY@799 RF: 0 omeprazole 20 mg capsule,delayed release(DR/EC) 20 mg PO BID@ RF: 0 Coding Level of Care Code ED Food Safety Specialist for Chg Fwd Exam Comprehensive
[2020-09-18] MEDS: sodium chloride 0.9% 1,000 ML 999 ML IV (11:22)
[2020-09-18] MEDS: cefTRIAXone 2,000 MG in sodium chloride 0.9% (plus) 50 ML 100 MG IV (11:22)
[2020-09-18] MEDS: iohexol 350 mg/mL 100 mL Btl IV (12:42)
--- NOTE | 2020-09-18 17:04 | PC.NURSE ---
Resting in bed No acute distress. Waiting for a Ride
== END 2020-09-18 18:10 ==
PROVIDERS: Emergency Provider Family Medicine; PCP Nurse Practitioner Family
DX: N39.0 Urinary tract infection, site not specified (principal); Z79.82 Long term (current) use of aspirin; Z79.02 Long term (current) use of antithrombotics/antiplatelets; Z79.4 Long term (current) use of insulin; Z89.612 Acquired absence of left leg above knee; J43.9 Emphysema, unspecified; E78.2 Mixed hyperlipidemia; E11.9 Type 2 diabetes mellitus without complications; Z95.1 Presence of aortocoronary bypass graft; Z87.891 Personal history of nicotine dependence
CPT/HCPCS: 12345; 51702; 71045; 71275; 80053; 81001; 83605; 85025; 85378; 86140; 87077; 87086; 87186; 96365; 99283; 99284; J0696; J7030; Q9967

== ENCOUNTER → 2020-10-02 15:13 | Outpatient (BNVA) | payer MEDICARE, MEDICAID, SELFPAY | PROVIDERS: PCP Nurse Practitioner Family; Visit Provider Nurse Practitioner Family | DX: R31.9 Hematuria, unspecified (principal); S78.112A Complete traumatic amputation at level between left hip and knee, initial encounter | CPT/HCPCS: 87077; 87086; 87184 ==

== ENCOUNTER → 2020-11-14 08:43 | Outpatient (BNVA) | payer MEDICARE, MEDICAID, SELFPAY | PROVIDERS: PCP Nurse Practitioner Family; Visit Provider Urology | DX: N39.0 Urinary tract infection, site not specified (principal); R33.9 Retention of urine, unspecified; R82.81 Pyuria | CPT/HCPCS: 81003; 87077; 87086; 87184 ==

== ENCOUNTER 2020-12-16 06:25 | Outpatient (CLI) | payer MEDICARE, MEDICAID, SELFPAY ==
--- NOTE | 2020-12-16 07:28 | ECG_ITS ---
[facility] Test Date: 2020-12-16 Pat Name: Mauro Espino Department: Room: Gender: Male Publicity Writer: : 1940 Requested By: Sarah Hernández Order Number: [id number] Alexys MD: Jeffery Wilkes M.D. Interpretive Statements NAME OF STUDY: LEXISCAN SESTAMIBI STRESS TEST INDICATION: Atypical Chest Pain, PROCEDURE: At the baseline, the EKG revealed normal sinus rhythm with frequent PVCs. Poor R wave progression. Features of old anteroseptal myocardial infarction. Some nonspecific IVCD. The baseline blood pressure was 126/76 mm Hg with a heart rate of 72 beats/min. Lexiscan was infused over a period of 20 seconds. A total of 0.4 milligrams of Lexiscan was infused. The stress phase was continued for a total of 5 minutes. Heart rate at the end of the stress phase was 74 with a blood pressure of 126/66. The EKG at the peak infusion revealed no significant changes but more PVCs were noted during the recovery phase. Sestamibi was injected 20 seconds after the Lexiscan infusion. Blood pressure at the end of the recovery phase was 131/69 with a heart rate of 76 per minute. CONCLUSION: 1. No significant EKG changes with the LexiScan infusion 2. No LexiScan induced chest pain. More frequent PVCs are noted with the Lexiscan infusion. 3. Normal blood pressure and heart rate response 4. Sestamibi/sestamibi perfusion scan pending; see separate report. Electronically Signed On 12-19-2020 8:21:05 CDT by Jeffery Wilkes M.D. [id number]
[2020-12-16 07:29] VITALS: BMI 21.9
--- NOTE | 2020-12-16 07:29 | NMCV_ITS ---
NM steve perf SPECT r/s* [id number] Mauro Espino Age: 80 Gender: M : 1940 Exam Date: 12/16/2020 08:29 Ordering Phys: Sarah Hernández Technologist: ROXANNE Garcia Exam Location: [facility] [address] Indications: CHEST PAIN STRESS TEST Please see separate stress test report in [facility] for full findings IMAGE PROTOCOL Rest/Stress 1 Lexiscan Day Radiopharmaceutical Dose (mCi) Administration Site Administered by Rest: Tc-99m 11.0 IV Angelica Courtney, BOARD OF EDUCATION SECRETARY Sestamibi Stress:Tc-99m 32.4 IV Angelica Corutney, BOARD OF EDUCATION SECRETARY Sestamibi Rest: 16-Dec-2020 60 Discovery 630 Stress: 16-Dec-2020 30 Discovery 630 0.4mg Lexiscan. Images obtained in supine and prone position. SPECT RESULTS Technical Quality: Excellent Raw Data Analysis: Normal Image Corrections: No attenuation or motion correction applied Summed Stress Score: 6 Summed Rest Score: 4 Summed Difference Score: 3 PERFUSION FINDINGS Patchy areas of decreased aseptic was noted in the anterior wall, inferior wall and apical regions with subtle areas of reversibility in the apical region, with the supine imaging. However with the prone imaging, no significant reversibility was noted FUNCTIONAL RESULTS (calculated via Gated SPECT) Stress Image LV EF (%): 40 Stress EDV (mL):139 TID: 1.21 Stress ESV (mL):84 FUNCTIONAL FINDINGS: Segmental wall motion analysis revealed diffuse hypokinesia of the LV apex and septum IMPRESSIONS 1. Myocardial perfusion imaging revealing patchy areas of persistent decreased tracer uptake in the anterior wall, inferior wall and apical regions, with subtle areas of reversibility around the apex, suggestive of myocardial scarring mostly the distribution of the left descending artery and the right coronary artery with a subtle areas of possible hetal-infarction ischemia. 2. Diminished LV ejection fraction of 40%. 3. LV wall motion analysis revealing multiple wall motion normalities as mentioned above. 4. Dilated LV cavity with an end-systolic volume of 84 mL. 5. Elevated transischemic dilatation ratio( TID), may suggest endocardial ischemia. Clinical correlation is recommended. No similar previous studies are available for comparison Dr Jeffery Wilkes MD [facility] (Electronically Signed) Final Date: 16 December 2020 15:13 S
[2020-12-16] MEDS: regadenoson 0.4 Mg/5 ml Syringe IVP (09:37)
[2020-12-16 09:51] VITALS: BP 121/64; PULSE 69
== END 2020-12-16 06:26 | disposition home or self-care (01) ==
LOC: RAD 06:26 → CDL 06:54
PROVIDERS: PCP Nurse Practitioner Family; Visit Provider Nurse Practitioner Family
DX: R07.9 Chest pain, unspecified (principal); I49.8 Other specified cardiac arrhythmias; I73.9 Peripheral vascular disease, unspecified; E11.9 Type 2 diabetes mellitus without complications
CPT/HCPCS: 78452; 93017; A9500; J2785

== ENCOUNTER → 2020-12-24 00:01 | Outpatient (BNVA) | payer MEDICARE, MEDICAID, SELFPAY | PROVIDERS: PCP Nurse Practitioner Family; Visit Provider Nurse Practitioner Family | DX: E11.9 Type 2 diabetes mellitus without complications (principal); I10 Essential (primary) hypertension; E78.5 Hyperlipidemia, unspecified | CPT/HCPCS: 80053; 80061; 82043; 83036 ==

== ENCOUNTER 2021-02-07 10:53 | Emergency (ER) | payer MEDICARE, MEDICAID, SELFPAY ==
[2021-02-07 11:07] VITALS: BP 130/91; PULSE 77; RESP 16; TEMP 36.8; O2SAT 97; BMI 23.3
--- NOTE | 2021-02-07 11:09 | W.ED.GENADLT ---
HPI - General Adult General: Chief complaint: General Medical Stated complaint: BP problems, pulse reading prob. sent by Rafael Time Seen by Provider: 02/07/21 10:55 History of Present Illness: Associated symptoms: Deny chest pain, confusion, cough, diaphoresis, decreased appetite, dyspnea, fevers/chills, headache(s), malaise, nausea, rash, palpitations, seizures, short of breath, syncope, vomiting or weakness Treatments prior to arrival: none Review of Systems Const: Denies: malaise or diaphoresis ENMT: Denies: throat pain, ear or mastoid pain, nasal discharge or nasal congestion Card: Denies: chest pain, palpitations or syncope Resp: Denies: dyspnea GI: Denies: nausea or vomiting : Denies: flank pain, dysuria, urinary frequency or urinary urgency Skin/Breast: Denies: rash Neuro: Denies: headache(s) or confusion PFS ED PFSH: Medical History Emphysema/COPD GERD (gastroesophageal reflux disease) History of GI bleed Hx pulmonary embolism Hyperlipemia, mixed Hypothyroidism -Noted elevated TSH, normal free T4 -Continue levothyroxine Peripheral arterial disease Protracted bacterial bronchitis Type 2 diabetes mellitus with complication, without long-term current use of insulin -A1c at goal-6.2 -Accuchecks, ISS, hypoglycemia precautions -consistent carb diet as tolerated Urinary retention Surgical History H/O cataract extraction RIGHT 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 Family History Mother Diabetes Hypertension Other CAD (coronary artery disease) Myocardial infarction Social History Smoking and tobacco status: former smoker Second hand smoke exposure: No Smoking risk assessment/counseling performed?: No Alcohol intake: never Desire information about alcohol rehabilitation?: No Counseling given: No Desire information about substance/drug rehabilitation?: No Counseling given: No Lives independently: Yes Household members: spouse Marital status: Current occupational status: retired History of recent travel: No Current gender identity: Male Physical Exam Const: COMMON NORMALS: no acute distress GENERAL APPEARANCE: cooperative and comfortable ORIENTATION/CONSCIOUSNESS: Yes awake, Yes oriented to person, Yes oriented to place and Yes oriented to time HENMT: COMMON NORMALS: normocephalic, atraumatic and hearing grossly normal bilaterally HEAD & SCALP: normocephalic and atraumatic Neck/C-Spine: COMMON NORMALS: no JVD Resp: COMMON NORMALS: normal respiratory effort, No retractions, No use of accessory muscles and clear to auscultation bilaterally AUSCULTATION: clear to auscultation bilaterally Cardio: COMMON NORMALS: no JVD, regular rate, regular rhythm and No murmurs present (Cardio) RATE: regular rate RHYTHM: regular rhythm GI: COMMON NORMALS: Soft to palpation and No hepatosplenomegaly present AUSCULTATION: Yes normoactive bowel sounds PALPATION: Yes Soft to palpation, No Tenderness to palpation present (GI), No Guarding due to palpation present (GI) and Yes No hepatosplenomegaly present Extremity: NARRATIVE EXTREMITY EXAM: Bilateral lower extremity amputations. Neuro: SENSORIUM/ORIENTATION: Yes oriented to person, Yes oriented to place and Yes oriented to time Skin: COMMON NORMALS: no rashes or lesions noted GENERAL SKIN EXAM: no rashes or lesions noted Course Vital Signs: Vital signs: Vital Signs Temperature 98.2 F 02/07/21 11:07 Pulse Rate 67 02/07/21 11:34 Respiratory Rate 18 02/07/21 11:34 Blood Pressure 138/53 02/07/21 11:34 Pulse Oximetry 95 02/07/21 11:34 MDM - General Adult MDM Narrative: Medical decision making narrative: Patient is doing well no specific complaints or problems at this time he is continuing to deny chest pain laboratory tests are unremarkable he is mildly hyponatremic but that is been a baseline for him he is asymptomatic at this time. We will go ahead and discharge him home heart rate and blood pressure are normal he can follow-up with his primary care doctor as needed. Lab Data: Labs: Lab Results 02/07/21 02/07/21 02/07/21 Range/Units 11:32 11:32 11:32 WBC 6.7 (4.0-10.0) 10^3/ uL RBC 5.31 H (4.1-5.3) 10^6/u L Hgb 15.0 (11.7-16.6) g/dL Hct 46.9 (42.0-52.0) % MCV 88.3 (80-94) fL MCH 28.2 (28.0-34.0) pg MCHC 32.0 (30.0-36.0) g/dL RDW 14.1 (12.1-15.1) % Plt Count 219 (130-400) 10^3/c mm MPV 9.7 (7.4-10.4) fL Neut % (Auto) 68.2 % Lymph % (Auto) 19.2 % [place] % (Auto) 7.5 % Eos % (Auto) 3.6 % Baso % (Auto) 1.2 % Neut # (Auto) 4.56 (1.8-7.7) 10^3/u L Lymph # (Auto) 1.3 (0.8-4.8) 10^3/u L [place] # (Auto) 0.5 (0.2-0.9) 10^3/u L Eos # (Auto) 0.2 (0.0-0.8) 10^3/u L Baso # (Auto) 0.1 (0.0-0.1) 10^3/u L Nucleated RBC % (a uto) 0 % Nucleated RBCs # 0.0 /100WBC Sodium Cancelled Potassium Cancelled Chloride Cancelled Carbon Dioxide Cancelled Anion Gap Cancelled BUN Cancelled Creatinine Cancelled GFR Calculation Cancelled Glucose Cancelled Calculated Osmolal ity Cancelled Calcium Cancelled Total Bilirubin Cancelled AST Cancelled ALT Cancelled Alkaline Phosphata se Cancelled Troponin T Baselin e Cancelled Total Protein Cancelled Albumin Cancelled Globulin Cancelled 02/07/21 02/07/21 Range/Units 12:05 12:05 WBC (4.0-10.0) 10^3/ uL RBC (4.1-5.3) 10^6/u L Hgb (11.7-16.6) g/dL Hct (42.0-52.0) % MCV (80-94) fL MCH (28.0-34.0) pg MCHC (30.0-36.0) g/dL RDW (12.1-15.1) % Plt Count (130-400) 10^3/c mm MPV (7.4-10.4) fL Neut % (Auto) % Lymph % (Auto) % [place] % (Auto) % Eos % (Auto) % Baso % (Auto) % Neut # (Auto) (1.8-7.7) 10^3/u L Lymph # (Auto) (0.8-4.8) 10^3/u L [place] # (Auto) (0.2-0.9) 10^3/u L Eos # (Auto) (0.0-0.8) 10^3/u L Baso # (Auto) (0.0-0.1) 10^3/u L Nucleated RBC % (a uto) % Nucleated RBCs # /100WBC Sodium 130 L Potassium 3.8 Chloride 93 L Carbon Dioxide 25 Anion Gap 15.8 BUN 11 Creatinine 0.8 GFR Calculation Not Reportable Glucose 169 H Calculated Osmolal ity 273 L Calcium 8.7 Total Bilirubin 0.3 AST 14 ALT 7 Alkaline Phosphata se 84 Troponin T Baselin e 19 H Total Protein 6.4 L Albumin 4.2 Globulin 2.2 Discharge Plan Discharge Patient Disposition: Home Clinical Impression: Benign essential HTN, Diabetes Condition: Stable Prescriptions: No Action aspirin 81 mg tablet,delayed release (DR/EC) 81 mg PO DAILY@0800 RF: 0 docusate sodium [Colace] 100 mg capsule 100 mg PO BID@799,1999 RF: 0 gabapentin 300 mg capsule 300 mg PO TID@08,,20 Qty: 90 RF: 2 isosorbide mononitrate 30 mg tablet extended release 24 hr 15 mg PO BID Qty: 30 RF: 0 ramipril 10 mg capsule 10 mg PO DAILY@0800 Qty: 30 RF: 6 sennosides-docusate sodium [Senna-S] 8.6-50 mg Tablet 1 tab-cap PO DAILY PRN (Reason: Constipation) RF: 0 alendronate 70 mg tablet 70 mg PO Q7D RF: 0 simvastatin 40 mg tablet 40 mg PO DAILY@1999 RF: 0 tamsulosin 0.4 mg capsule 0.4 mg PO DAILY@0800 RF: 0 omeprazole 20 mg capsule,delayed release(DR/EC) 20 mg PO BID@, RF: 0 glipizide 5 mg tablet 2.5 mg PO DAILY@0800 RF: 0 Discharge Orders: Discharge ED (Routine); Ordered 02/07/21 Ordered By: Ravindra Mitchell Referrals: Dulce Maria Alonzo FNP [Primary Care Provider] - Discharge Diet: Usual diet Discharge Activity: Resume usual activity Patient Instructions: Opioid Safety Coding Level of Care Code ED Target Protection Specialist for Chg Fwd Exam Detailed
--- NOTE | 2021-02-07 11:20 | ECG_ITS ---
[facility] Test Date: 2021-02-07 Pat Name: Mauro Espino Department: Room: Gender: Male Insurance Claims Supervisor: : 1940 Requested By: Ravindra Jiang Order Number: [id number] Alexys MD: Yareli Pollard M.D. Measurements Intervals [place] Rate: 71 P: 59 MT: 159 QRS: -21 QRSD: 133 T: 68 QT: 427 QTc: 464 Interpretive Statements SINUS RHYTHM WITH FREQUENT VENTRICULAR PREMATURE COMPLEXES IN A BIGEMINAL PATTERN INTRAVENTRICULAR CONDUCTION DELAY [130+ ms QRS DURATION] ANTEROSEPTAL MYOCARDIAL INFARCTION , OF INDETERMINATE AGE [40+ ms Q WAVE IN V1-V4] Compared to ECG 06/15/2020 10:38:49 Ventricular premature complex(es) now present Intraventricular conduction delay now present Sinus bradycardia no longer present Left-axis deviation no longer present Myocardial infarct finding still present Electronically Signed On 02-08-2021 9:47:38 CDT by Yareli Pollard M.D. [id number]
[2021-02-07 11:34] VITALS: BP 138/53; PULSE 67; RESP 18; O2SAT 95
[2021-02-07 11:44] LABS: Basophils # 0.1 10^3/uL (0.0-0.1); Basophils % 1.2 %; Eosinophils # 0.2 10^3/uL (0.0-0.8); Eosinophils % 3.6 %; Hematocrit 46.9 % (42.0-52.0); Lymphocytes # 1.3 10^3/uL (0.8-4.8); Lymphocytes % 19.2 %; Mean Corpuscular Hemoglobin 28.2 pg (28.0-34.0); Mean Corpuscular Volume 88.3 fL (80-94); Mean Platelet Volume 9.7 fL (7.4-10.4); Monocytes # 0.5 10^3/uL (0.2-0.9); Monocytes % 7.5 %; Neutrophils # 4.56 10^3/uL (1.8-7.7); Neutrophils % 68.2 %; Nucleated Red Blood Cells % 0 %; Platelet Count 219 10^3/cmm (130-400); Red Blood Count 5.31 10^6/uL (4.1-5.3); Red Cell Distribution Width 14.1 % (12.1-15.1); White Blood Count 6.7 10^3/uL (4.0-10.0)
[2021-02-07 12:40] LABS: Alanine Aminotransferase 7 U/L (0-41); Albumin Level 4.2 g/dL (3.5-5.2); Alkaline Phosphatase 84 IU/L (40-130); Anion Gap 15.8 (5-19); Aspartate Amino Transferase 14 U/L (0-40); Blood Urea Nitrogen 11 mg/dL (8-23); Calcium 8.7 mg/dL (8.5-10.5); Carbon Dioxide 25 mmol/L (22-29); Chloride 93 mmol/L (98-107); Globulin 2.2 g/dL (1.3-4.6); Glucose 169 mg/dL (65-115); Osmolality Calculated 273 mOsm/kg (285-295); Potassium 3.8 mmol/L (3.5-5.1); Sodium 130 mmol/L (136-145); Total Bilirubin 0.3 mg/dL (0.15-1.2); Total Protein 6.4 g/dL (6.6-8.7)
[2021-02-07 12:41] LABS: Troponin(5th) Baseline 19 ng/L (0-15)
[2021-02-07 13:05] VITALS: BP 137/64; PULSE 71; RESP 18; O2SAT 95
== END 2021-02-07 13:06 | disposition home or self-care (01) ==
PROVIDERS: Emergency Provider Family Medicine; PCP Nurse Practitioner Family
DX: I10 Essential (primary) hypertension (principal); E11.9 Type 2 diabetes mellitus without complications; Z79.82 Long term (current) use of aspirin; Z79.84 Long term (current) use of oral hypoglycemic drugs; J44.9 Chronic obstructive pulmonary disease, unspecified; E78.2 Mixed hyperlipidemia; Z95.1 Presence of aortocoronary bypass graft; Z89.612 Acquired absence of left leg above knee; Z87.891 Personal history of nicotine dependence
CPT/HCPCS: 80053; 84484; 85025; 93005; 99283

== ENCOUNTER → 2021-02-14 08:31 | Outpatient (BNVA) | payer MEDICARE, MEDICAID, SELFPAY | PROVIDERS: PCP Nurse Practitioner Family; Visit Provider Internal Medicine Cardiovascular Disease | DX: Z51.81 Encounter for therapeutic drug level monitoring (principal); E03.9 Hypothyroidism, unspecified; E11.9 Type 2 diabetes mellitus without complications | CPT/HCPCS: 80053; 83036; 84443; 87635 ==

== ENCOUNTER 2021-02-20 07:20 | Day surgery (SDC) | payer MEDICARE, MEDICAID, SELFPAY ==
[2021-02-20] VITALS (18 sets, daily range): BP systolic 131–175; BP diastolic 63–108; PULSE 51–79; RESP 14; TEMP 36.4; O2SAT 85–99; BMI 21.7
--- NOTE | 2021-02-20 07:30 | XACV_ITS ---
Ht: 183 cm Wt: 73 kg BSA: 1.92 m2 Gender: Male : 1940 Any Known Allergies: No known allergies Exam Priority: Routine Procedure(s): Procedure Description: Diagnostic procedure Procedure Description: Left Heart Catheterization Procedure Description: Coronary angiogram Diagnostic Cath Status: Elective Diagnostic Findings * Mid Left Anterior Descending: total occlusion, FERNANDO: 0 flow. * SVG to OM: patent SVG to PDA is occluded. * Proximal Right Coronary Artery: critical 95% stenosis, FERNANDO: 3 flow. This is heavily calcified vessel. * Left Main has no disease. * Left Internal Mammary Artery to Mid Left Anterior Descending graft: patent. * Proximal Circumflex: total occlusion, FERNANDO: 0 flow. * Two grafts visualized. * Coronary angiography shows right dominance. Conclusions 1. Severe multivessel coronary artery disease. 2. POZO to LAD and SVG to OM patent. SVG to RCA is occluded. 3. Severe heavily calcified proximal RCA stenosis. 4. Patient has prior CABG. Recommendations * Patient has severe proximal RCA stenosis which is heavily calcified and will require arthrectomy prior to PCI. * We will stage the PCI of RCA for next week for planned orbital arthrectomy with PCI. * Start Plavix. Interventional RX Recommendation: PCI w/o planned CABG Diagnostic RX Recommendation: PCI w/o planned CABG Clinical Evaluation EBL: 5mL-10mL Procedural Details Procedure Consent Obtained. Admit Source: Out Patient. Pre-Procedure Time Out. Identified patient by full name and date of as verbalized by the patient/guarantor. Does the consent match the physician's order: Yes. Accurate & Complete Informed Consent: Yes. Inpatient/Outpatient History & Physical on Chart: Yes. If H&P is completed, is and addenduem needed: Yes; If yes, is the addendum complete: N/A. Visualize and Verify Site with Patient/Guarantor: N/A. Relevant Radiology Images available: N/A. Pre-op teaching completed and patient verbalized understanding. The risks, benefits, and alternatives of sedation and/or procedure were discussed by physician. The patient agrees to continue. Procedure started. [facility] Clinical Fraility Score: 4: Vulnerable. Sweeper Operator Highways Indications: Worsening Angina/abnormal stress test. Chest Pain Symptom Assessment: Typical Angina Symptoms. Cardiovascular Instability: No,. Correct patient, site and procedure confirmed by cath team. PERRLA. Strong, equal hand workers compensation claims adjuster bilaterally. Lungs clear x 5 lobes. IV Site on Arrival: 20 gauge in the left anticubital. Pre Procedural Pulses: bilateral radial was 3+. Oxygen started at 2liters/min via nasal canula. bilateral groins was prepped with chloroprep then draped in the usual sterile fashion. Physician notified. Baseline sample Acquired. HR: 63 BPM. Physician arrived. Physician scrubbed in. Immediate Pre-Procedure Time Out. Correct Patient: Yes; Correct Procedure: Yes; Correct Site: Yes; Correct Patient Position: Yes; Correct Supplies: Yes; Dried Flammable Prep: Yes; Blood Products Available: N/A;. Lidocaine 1% infiltrated to the left groin. Ultra sound used to help gain access. Arterial access obtained with micropuncture set. A 5 belarusian JL4 catheter in over wire. Multiple views taken of left coronary artery. Catheter out. A 5 belarusian JR4 catheter in over wire. POZO to LAD visualized. Catheter redirected to the RCA. SVG to RCA occluded. SVG's to OM visualized and patent. Catheter out. Sheath(s) sutured into position with 2-0 silk and sterile 4x4's and Op-site applied over the site. No oozing or signs and symptoms of hematoma noted. Arterial sheath flushed and connected to tranducer and pressure bag with heparinized saline. PERRLA. Strong, equal hand workers compensation claims adjuster bilaterally. No VTE prophylaxis required. A Suture was successful obtaining hemostatsis at the Left Femoral artery insertion site. Contrast type used: Visipaque 320 mgI/mL, 500 mL bottle. Contrast Material : Visipaque 145 ml. Medication's Wasted: Lidocaine 1% = 10 mL. Medication's Wasted: Other = fentanyl 50 mg. Medication's Wasted: Other = versed 1 mg. Medication's Wasted: Heparin = 1000 units. Total IV fluids: 50 mL. Post-op diagnosis: severe prox RCA stenosis, patent SVG to OM, remarkable LAD. Complications: none. Estimated blood loss: 5mL-10mL. Procedure completed. Patient transferred by bed to 1st floor. Vital chart was stopped. Access Site Site: Left Femoral artery Sheath Size: 5 Fr Hemostasis Method: Suture Hemostasis Success: Successful Procedure Medications Start: 8:55 AM Stop: 8:55 AM Medication: Versed Amount: 1 mg Route: I.V. Start: 8:55 AM Stop: 8:55 AM Medication: Fentanyl Amount: 50 mcg Route: I.V. I, the attending physician, have reviewed and verified all procedure medications. Yes, all medications given per verbal order History/Risk Factors Hypertension: No Dyslipidemia: Yes Peripheral Arterial Disease (PAD): Yes Myocardial Infarction ([place]): No Obesity: No Renal Disease: No Tobacco Use: Former Prior Interventions PCI: No CABG: Yes Valve Surgery: No Report Signatures Finalized by Lyle Lovell MD on 03/01/2021 07:06 PM
[2021-02-20] MEDS: diphenhydrAMINE 50 mg Capsule PO (07:37)
--- NOTE | 2021-02-20 08:00 | SUR.PREOP ---
PREOP NOTE: PATIENT IS A BILATERAL AMPUTEE. HE HAS A PROSTHESIS ON THE RIGHT LOWER EXTREMITY BUT NOT THE RIGHT AT THIS TIME. IT WAS TAKEN OFF AND PLACED WITH HIS BELONGINGS THAT WILL TRAVEL WITH HIM FROM CPRU TO THE STORE STOCK HELP TO U.
--- NOTE | 2021-02-20 08:46 | W.PM.OPSUD ---
Surgery/Procedure H&P Update DATE OF PROCEDURE: February 20, 2021 DATE H&P PERFORMED: 02/16/21 H&P UPDATE INFORMATION: I have reviewed H&P completed within last 30 days, I have examined patient prior to procedure and No changes to prior documentation PREOP DIAGNOSIS: Worsening angina PRIMARY INDICATION FOR PROCEDURE: Worsening angina PLANNED PROCEDURE: Operation Date: 02/20/21 08:30 Proposed Procedures p Cardiac Catheterization 03749 R94.39(Left) - Lyle Lovell M.D Possible percutaenous coronary intervention PATIENT REASSESSED PRIOR TO SEDATION, WITH NO CHANGE NOTED: Yes PHYSICAL EXAM: alert, oriented x 3, clear to auscultation bilaterally and regular rate & rhythm AIRWAY EVAL/ANESTHESIA PLAN: ASA III, Monitored Anesthesia, Local Anesthesia, Risks, benefits & alternatives of sedation and/or procedure discussed and Patient agrees to continue as planned
--- NOTE | 2021-02-20 12:24 | PC.NURSE ---
received from cardiac labor operator at 0930 via bed.report received.pt is awake and alert and oriented x 4.denies pain.sr with freq pvc's on monitor.right groin with arterial sheath intact to pressurized system.right groin drsg is dry and intact.no hematoma noted.right leg is warm to touch and with brisk capillary refill.instructed in activity restrictions post femoral artery procedure..and instructed to notify staff for any pain,bleeding,numbness...or for any concerns at all.pt verb understanding of instructions
--- NOTE | 2021-02-20 12:40 | PC.NURSE ---
at approx 1000,pt's spouse was seated at bedside. she began c/o feeling dizzy,and weak.stated i just dont feel right . she then began twitching-first hands..then arms,then and became unresponsive ( yet eyes were still open). rapid response called...and pt taken to er via bed.
--- NOTE | 2021-02-20 12:57 | PC.NURSE ---
sheath pull: left femoral arterial sheath pulled at 1030.manual pressure applied x 20 min.vss through-out procedure.no hematoma formation noted.pt tolerated procedure well.site dressed with 2x2 gauze and secured with biocclusive drsg.instructed pt in activity restrictions s/p femoral artery sheath pull...and instructed to notify staff for any bleeding,pain,numbness..or for any concerns at all.pt verb understanding of instructions
--- NOTE | 2021-02-20 17:36 | PC.NURSE ---
discharge instructions given and explained.pt verb understanding of instructions.plavix prescription provided by [facility] via meds to beds program.discharged via w/c to exit.spouse to drive pt home.
== END 2021-02-20 17:36 | disposition home or self-care (01) ==
LOC: CCL 07:23 → CSU 12:38
PROVIDERS: Internal Medicine; PCP Nurse Practitioner Family; Visit Provider Internal Medicine Cardiovascular Disease
DX: R94.39 Abnormal result of other cardiovascular function study (principal); I25.10 Atherosclerotic heart disease of native coronary artery without angina pectoris; I25.84 Coronary atherosclerosis due to calcified coronary lesion; Z95.1 Presence of aortocoronary bypass graft
CPT/HCPCS: 36415; 93455; C1769; C1887; C1894; J1644; J2250; J3010; J7030; Q0163; Q9967

== ENCOUNTER 2021-02-25 07:16 | Day surgery (SDC) | payer MEDICARE, MEDICAID, SELFPAY ==
[2021-02-25] VITALS (54 sets, daily range): BP systolic 93–188; BP diastolic 54–125; PULSE 54–85; RESP 3–32; TEMP 36.3; O2SAT 73–99
--- NOTE | 2021-02-25 07:27 | XACV_ITS ---
Exam Room: [facility] Ht: 183 cm Wt: 73 kg BSA: 1.92 m2 Gender: Male : 1940 Any Known Allergies: No known allergies Exam Priority: Routine Procedure(s): Procedure Description: Diagnostic procedure Procedure Description: PCI procedure Procedure Description: Drug Eluting Coronary Stent Procedure Description: PTCA Procedure Description: Coronary Atherectomy Procedure Description: Miscellaneous Procedure Description: ACT Procedure Description: Coronary Angiography Diagnostic Cath Status: Elective Diagnostic Findings * This is a staged procedure for PCI of proximal RCA. For complete diagnostic report, please see cath report from 02/20/2021. * Proximal RCA: Has severely calcified, severe 90% stenosis. PCI Status: Elective PCI Indication: New Onset Angina <= 2 months Interventional Findings * INDICATION: STAGED PROCEDURE FOR PCI OF PROXIMAL RCA. * Procedure details: We engaged RCA with a JR4 guide catheter. IV heparin was administered to maintain an ACT above 250 seconds. A 0.014 run-through guidewire was used to cross the stenosis and was placed in PLV branch. We switched the runthrough guidewire to Colovoreer arthrectomy wire and attepmted performing orbital arthrecomy however because of lack of support, could not be performed. We switched guide catheter to AL 1 guide. Orbital arthrectomy was performed with several runs. We then serially dilated the lesion with a 2.0x12mm semicompliant balloon followed by 2.5x8mm semicompliant balloon. We then used a 3.0x12mm NC balloon. This was followed by placement of a 3.0x18mm Resolute gail RADHA.Some hazimess was seen at the distal edge of the stent and was covered with a 2.73l08we RADHA. At this time final angiogram was performed that showed excellent stent expansion, FERNANDO-3 flow and no residual stenosis. Guidewire and guide catheter were removed. Patient left the Tier In in a stable condition. * Proximal Right Coronary Artery to Proximal Right Coronary Artery: 90% stenosis treated with a AB MINI TREK 2.00X12 RX BALLOON, MDT NC EUPHORA RX 2.68G61BW BALLOON, MDT NC EUPHORA RX 3.10G19OD BALLOON, MDT R GAIL 3.0X18 RADHA, and MDT R GAIL 2.75X12 RADHA. 0% residual stenosis, FERNANDO: 3 flow. Conclusions 1. Patient has prior CABG.Patient had recent coronary angiogram performed on 02/20/2021, that showed patent POZO to LAD and SVG to OM. SVG to RCA was occluded with severe proximal RCA stenosis that underwent successful revascularization with orbital arthrectomy and RADHA x 2. 2. There is severe coronary artery disease with one vessel disease. 3. Proximal Right Coronary Artery to Proximal Right Coronary Artery was treated with a Balloon, Balloon, Balloon, Drug Eluting Stent, and Drug Eluting Stent. Recommendations * Transfer to CSU. * Aspirin and Plavix for atleast 1 year. * High intensity statin therapy. * Outpatient follow up with cardiology in 4 weeks. Interventional RX Recommendation: PCI w/o planned CABG Diagnostic RX Recommendation: PCI w/o planned CABG Anticoagulation: Heparin Pressures Phase:Rest AO : 94 / 50 ( 65 ) @ 8:14:00 AM 94 / 54 ( 69 ) @ 8:21:00 AM 135 / 103 ( 101 ) @ 8:52:00 AM 112 / 66 ( 85 ) @ 9:49:00 AM Clinical Evaluation EBL: 5mL-10mL Procedural Details Procedure Consent Obtained. Pre-Procedure Time Out. Identified patient by full name and date of as verbalized by the patient/guarantor. Does the consent match the physician's order: Yes. Accurate & Complete Informed Consent: Yes. Inpatient/Outpatient History & Physical on Chart: Yes. If H&P is completed, is and addenduem needed: No; If yes, is the addendum complete: N/A. Visualize and Verify Site with Patient/Guarantor: N/A. Relevant Radiology Images available: N/A. Pre-op teaching completed and patient verbalized understanding. The risks, benefits, and alternatives of sedation and/or procedure were discussed by physician. The patient agrees to continue. Procedure started. [facility] Clinical Fraility Score: 4: Vulnerable. Tier In Indications: Worsening Angina, abnormal stress test. Chest Pain Symptom Assessment: Typical Angina Symptoms. Cardiovascular Instability: No. Correct patient, site and procedure confirmed by cath team. PERRLA. Strong, equal hand linux engineer bilaterally. Lungs clear x 5 lobes. IV Site on Arrival: 20 gauge in the left anticubital. IV Fluids: 0.9% NaCl at KVO. 0 mL infused prior to shellfish processing laborer. Pre Procedural Pulses: bilateral radial was 2+. Pt is bilateral amputee. Oxygen started at 2liters/min via nasal canula. bilateral groins was prepped with chloroprep then draped in the usual sterile fashion. right radial was prepped with chloroprep then draped in the usual sterile fashion. Physician arrived. Equipment: 6F - Radial. Cardiac Cath Pack. ACIST Manifold Kit Model BT 2000. Heparinized Saline (2 units/mL), 1000 mL bag. Baseline sample Acquired. HR: 75 BPM. Physician scrubbed in. Immediate Pre-Procedure Time Out. Correct Patient: Yes; Correct Procedure: Yes; Correct Site: Yes; Correct Patient Position: Yes; Correct Supplies: Yes; Dried Flammable Prep: Yes; Blood Products Available: N/A;. Lidocaine 1% infiltrated to the right groin. Dr Lovell using Ultrasound to obtain venous access in right groin. Venous access obtained with a micropuncture set. Pt has IVC filter in place. Wire and needle out. Manual pressure held at access site. AP pads applied to patient. Physician using Ultrasound to obtain venous access in right IJ. Lidocaine 1% infiltrated to the right neck. Venous access obtained with a micropuncture set. Lidocaine 1% infiltrated to the right radial. Arterial access obtained. 6 gambian JR 4 guide catheter was inserted over the wire. Multiple views taken of right coronary artery. Runthrough 300 cm guidewire was advanced through the guide catheter to lesion in the prox RCA. Inventory is TR Runthrough NS Guidewire .014 300cm. Inventory is CRD 6FR JR 4 GUIDE 100cm. ACT drawn. Results 444 seconds. Therapeutic limits - pre-heparin administration 90-150 seconds and monitoring heparin during a vascular procedure >250 seconds. Teleport Microcatheter inserted over wire. Runthrough Wire out. VIPER wire inserted. Teleport catheter removed. 1.25 mm Diamondback Coronary orbital atherectomy device inserted over VIPER wire. Coronary orbital atherectomy performed to Prox RCA. Coronary orbital atherectomy performed to Prox RCA. Coronary orbital atherectomy performed to Prox RCA. Coronary orbital atherectomy performed to Prox RCA. Atherectomy device removed over VIPER wire. AB MINI TREK 2.0x12 RX BALLOON inserted over wire. Unable to cross lesion. Balloon out. Runthrough 300 cm guidewire was advanced through the guide catheter to lesion in the prox RCA. VIPER wire out. Guide catheter out. Inventory is CRD 6FR AL .75 GUIDE. 6 gambian AL 0.75 guide catheter was inserted over the wire. Wire out. Runthrough guidewire was advanced through the guide catheter to lesion in the prox RCA. VIPER wire inserted. Runthrough wire out. 1.25 mm Diamondback Coronary orbital atherectomy device inserted over VIPER wire. Coronary orbital atherectomy performed to Prox RCA. Coronary orbital atherectomy performed to Prox RCA. Coronary orbital atherectomy performed to Prox RCA. Atherectomy device removed over VIPER wire. Runthrough guidewire was advanced through the guide catheter to lesion in the prox RCA. VIPER wire out. Inflation number : 1 A AB MINI TREK 2.00X12 RX BALLOON was prepped and advanced across the Prox RCA , then inflated to 12 CORNELIO for 0:16 seconds. Inflation number: 2 The AB MINI TREK 2.00X12 RX BALLOON was reinflated across the Prox RCA, to 14 CORNELIO for 0:25 seconds. Balloon out. VIPER wire inserted. Runthrough wire out. 1.25 mm Diamondback Coronary orbital atherectomy device inserted over VIPER wire. Coronary orbital atherectomy performed to Prox RCA. Atherectomy device removed over VIPER wire. Viper wire out. Inventory is TR 180cm Runthrough NS extra floppy 0.014 wire. Runthrough guidewire was advanced through the guide catheter to lesion in the prox RCA. ACT drawn. Results 371 seconds. Therapeutic limits - pre-heparin administration 90-150 seconds and monitoring heparin during a vascular procedure >250 seconds. Inflation number : 3 A MDT NC EUPHORA RX 2.57A28LK BALLOON was prepped and advanced across the Prox RCA , then inflated to 12 CORNELIO for 0:13 seconds. Inflation number: 4 The MDT NC EUPHORA RX 2.46R47MV BALLOON was reinflated across the Prox RCA, to 12 CORNELIO for 0:13 seconds. Balloon out. Family updated. MDT R GAIL 3.0x18 RADHA inserted over wire. Unable to cross lesion. Intact stent removed. Guideliner inserted. Inflation number : 5 A MDT NC EUPHORA RX 3.94O47WO BALLOON was prepped and advanced across the Prox RCA , then inflated to 12 CORNELIO for 0:24 seconds. Balloon out. Inflation Number : 6 A MDT R GAIL 3.0X18 RADHA -Lot Number# [id number] exp date 11/29/2022 was prepped and advanced across the Prox RCA. The stent was deployed at 12 CORNELIO for 0:28 seconds. Stent balloon out over wire. Guideliner out. Results checked. Shocked at 120 joules. Inflation Number : 7 A MDT R GAIL 2.75X12 RADHA -Lot Number# [id number] exp date 11/19/2022 was prepped and advanced across the Prox RCA. The stent was deployed at 12 CORNELIO for 0:24 seconds. Results checked. Stent balloon out over wire. Wire out. Guide catheter out. Physician scrubbed out. A Suture was successful obtaining hemostatsis at the Right Jugular vein insertion site. A TR Band was successful obtaining hemostatsis at the Right Radial artery insertion site. TR band placed. Hemostasis obtained. Post Procedure: Pulses reassessed and unchanged. PERRLA. Strong, equal hand linux engineer bilaterally. No VTE prophylaxis required. Medication's Wasted: Nitro = 49.7 mg. Medication's Wasted: Heparin = 2000 units. Medication's Wasted: Other = versed 1 mg. Total IV fluids: 125 mL. Contrast type used: Visipaque 320 mgI/mL, 500 mL bottle. Complications: none. Post-op diagnosis: severe stenosis of RCA. Estimated blood loss: 5mL-10mL. Procedure completed. Patient transferred by bed to CPRU. Vital chart was stopped. Access Site Site: Right Jugular vein Sheath Size: 5 Fr Hemostasis Method: Suture Hemostasis Success: Successful Site: Right Radial artery Sheath Size: 6 Fr Hemostasis Method: TR Band Hemostasis Success: Successful Procedure Medications Start: 8:39 AM Stop: 8:39 AM Medication: Versed Amount: 1 mg Route: I.V. Start: 8:39 AM Stop: 8:39 AM Medication: Fentanyl Amount: 25 mcg Route: I.V. Start: 8:46 AM Stop: 8:46 AM Medication: Fentanyl Amount: 25 mcg Route: I.V. Start: 9:10 AM Stop: 9:10 AM Medication: Versed Amount: 0.5 mg Route: I.V. Start: 9:12 AM Stop: 9:12 AM Medication: Nitrogylcerin Amount: 200 mcg Route: I.A. Start: 9:15 AM Stop: 9:15 AM Medication: Heparin Amount: 7000 units Route: I.V. Start: 9:21 AM Stop: 9:21 AM Medication: Versed Amount: 0.5 mg Route: I.V. Start: 9:48 AM Stop: 9:48 AM Medication: Heparin Amount: 1000 units Route: I.V. Start: 9:50 AM Stop: 9:50 AM Medication: Fentanyl Amount: 25 mcg Route: I.V. Start: 10:15 AM Stop: 10:15 AM Medication: Fentanyl Amount: 25 mcg Route: I.V. Start: 10:17 AM Stop: 10:17 AM Medication: Heparin Amount: 1000 units Route: I.V. Start: 10:37 AM Stop: 10:37 AM Medication: Versed Amount: 1 mg Route: I.V. Start: 10:47 AM Stop: 10:47 AM Medication: Nitrogylcerin Amount: 100 mcg Route: I.C. Start: 11:05 AM Stop: 11:05 AM Medication: Plavix Amount: 300 mg Route: P.O. I, the attending physician, have reviewed and verified all procedure medications. Yes, all medications given per verbal order History/Risk Factors Hypertension: No Dyslipidemia: Yes Peripheral Arterial Disease (PAD): Yes Myocardial Infarction ([place]): No Obesity: No Renal Disease: No Tobacco Use: Former Prior Interventions PCI: No CABG: Yes Valve Surgery: No Report Signatures Finalized by Lyle Lovell MD on 03/11/2021 08:29 PM
[2021-02-25] MEDS: diphenhydrAMINE 50 mg Capsule PO (08:00)
[2021-02-25 08:25] LABS: Anion Gap 15.2 (5-19); Blood Urea Nitrogen 14 mg/dL (8-23); Calcium 8.9 mg/dL (8.5-10.5); Carbon Dioxide 24 mmol/L (22-29); Chloride 98 mmol/L (98-107); Glucose 113 mg/dL (65-115); Osmolality Calculated 277 mOsm/kg (285-295); Potassium 4.2 mmol/L (3.5-5.1); Sodium 133 mmol/L (136-145)
--- NOTE | 2021-02-25 08:30 | P.HPUD_ITS ---
Surgery/Procedure H&P Update DATE OF PROCEDURE: February 25, 2021 DATE H&P PERFORMED: 02/14/21 H&P UPDATE INFORMATION: I have reviewed H&P completed within last 30 days, I have examined patient prior to procedure, No changes to prior documentation and Changes to prior documentation as noted here CHANGES TO PREVIOUS DOCUMENTATION: Patient underwent left heart cath last week that showed that SVG to RCA was occluded and proximal RCA has severe, calcified 95% stenosis. Staged procedure for revascularization with possible arthrectomy. Risks (including increased risk of dissection and perforation if arthrectomy is needed) and benefits of the procedure have been described to the patient. Patient and family understands the risk and wants to proceed with the procedure. PREOP DIAGNOSIS: Worsening angina/ abnormal stress test PRIMARY INDICATION FOR PROCEDURE: Worsening angina/abnormal stress test PLANNED PROCEDURE: Operation Date: 02/25/21 08:30 Proposed Procedures p left Cardiac Catheterization 35525 R94.39(Left) - Lyle Lovell M.D Possible percutaneous coronary intervention PATIENT REASSESSED PRIOR TO SEDATION, WITH NO CHANGE NOTED: Yes PHYSICAL EXAM: alert, oriented x 3, clear to auscultation bilaterally and regular rate & rhythm AIRWAY EVAL/ANESTHESIA PLAN: ASA IV, Monitored Anesthesia, Local Anesthesia, Risks, benefits & alternatives of sedation and/or procedure discussed and P atient agrees to continue as planned
--- NOTE | 2021-02-25 09:46 | PC.CHAP ---
Pastoral Care Encounter/Spiritual Assessment Type of Contact [] Declined handling tech visit [] Patient/Family/Request visit [] Outpatient visit [] Follow-up visit [] Physician referral [] Code/Alert [x] Routine visit [] Staff referral [] Actively dying [] Patient sleeping [] Family support [] [x] Out of room [] Palliative care [] [] Receiving care in room [] Pre-surgical visit [] Trauma [] Long length of stay [] ICU visit [x] Other: testing CL Relational/Emotional Strength [] Patient feels connected with others/family/visitors/staff [] Distress [] Loneliness/isolation [] Abandonment Spirituality of Patient [] Person of Daksha [] Attends Taoism of their Daksha [] Believes in Prayer [] Reads Bible or Roman Catholic materials [] There are Spiritual issues to be addressed Warehouse Order Picker Interventions [x] Prayer [] Active listening [] Non-anxious presence [] Spiritual/emotional support [] Crisis/trauma care [] Spiritual counseling [] Bereavement support [] Provided bereavement packet [] Provided Bible/devotional materials [] Provided toy/stuffed animal, coloring book to patient or family member [] Provided Communion [] Anointing/Hilmar [] Salvation [x] Completed spiritual assessment [] Other: Impact on Illness or Injury [] Angry [] Fearful [] Anxious [] Often cries [] Exhaustion [] Unable to work [] Unable to attend methodist [] Unable to walk/stand [] Unable to read [] Unable to drive [] Unable to eat/drink [] Unable to sleep [] Unable to be with family [] Patient intubated [] Other: Summary Time spent with patient
--- NOTE | 2021-02-25 15:00 | PC.NURSE ---
Patient was brought to unit by laboratory scientist staff at [address] pads in [address]. It was reported to this nurse that patient had a run of vtach while in laboratory scientist, was shocked once and returned to previous rhythm. On unit patient had frequent PVC's. TR band was in place on right wrist and radial pulse was palpated. Patient was no room air and had no complaints of pain. Belongings are at bedside and include shirt, pants and prosthetic leg with shoe.
--- NOTE | 2021-02-25 18:27 | PC.NURSE ---
TR band removed at 1800. Dressing in [address]. No hematoma noted.
[2021-02-25] MEDS: atorvastatin 40 mg Tablet 20 MG PO (19:26)
[2021-02-25] MEDS: sodium chloride 0.9% 1,000 ML 100 ML IV (19:27)
[2021-02-25] MEDS: docusate sodium 100 mg Capsule PO (19:27)
--- NOTE | 2021-02-25 20:45 | PC.NURSE ---
Dr. Lovell given permission to move patient to CSU.
--- NOTE | 2021-02-25 23:00 | PC.NURSE ---
Remove Right Neck IJ Dr. Lovell gave permission at bedside to remove the right neck IJ. This nurse discontinued the right neck IJ, the catheter was intact. Applied Tegaderm dressing over the insertion site.
[2021-02-26] VITALS (9 sets, daily range): BP systolic 123–145; BP diastolic 68–77; PULSE 59–72; RESP 6–31; TEMP 36.6–37.2; O2SAT 92–95
--- NOTE | 2021-02-26 01:11 | PC.NURSE ---
Transfer Patient to CSU Transferred patient by bed to CSU and placed in room 107. All patient belongings (clothes and prosthetic leg) were transferred with patient and left at bedside. No complaints of pain all evening. Patient had 320 mls of bright yellow urine out all evening. Left AC IV has NS infusing at 100 mls/hr.
[2021-02-26 05:25] LABS: Basophils # 0.1 10^3/uL (0.0-0.1); Basophils % 0.9 %; Eosinophils # 0.2 10^3/uL (0.0-0.8); Hematocrit 41.9 % (42.0-52.0); Hemoglobin 14.1 g/dL (11.7-16.6); Lymphocytes # 0.9 10^3/uL (0.8-4.8); Lymphocytes % 11.1 %; Mean Corpuscular HGB Conc 33.7 g/dL (30.0-36.0); Mean Corpuscular Hemoglobin 28.7 pg (28.0-34.0); Mean Corpuscular Volume 85.3 fL (80-94); Mean Platelet Volume 9.7 fL (7.4-10.4); Monocytes # 0.8 10^3/uL (0.2-0.9); Monocytes % 10.2 %; Neutrophils # 6.01 10^3/uL (1.8-7.7); Neutrophils % 75.5 %; Nucleated Red Blood Cells % 0 %; Platelet Count 205 10^3/cmm (130-400); Red Blood Count 4.91 10^6/uL (4.1-5.3); Red Cell Distribution Width 13.9 % (12.1-15.1)
[2021-02-26 05:45] LABS: Anion Gap 18.1 (5-19); Blood Urea Nitrogen 13 mg/dL (8-23); Calcium 8.8 mg/dL (8.5-10.5); Carbon Dioxide 20 mmol/L (22-29); Chloride 102 mmol/L (98-107); Glucose 99 mg/dL (65-115); Osmolality Calculated 282 mOsm/kg (285-295); Potassium 4.1 mmol/L (3.5-5.1); Sodium 136 mmol/L (136-145)
[2021-02-26] MEDS: sodium chloride 0.9% 1,000 ML 100 ML IV (06:23)
[2021-02-26] MEDS: lisinopril 20 mg Tablet 40 MG PO (08:03)
[2021-02-26] MEDS: levothyroxine 25 mcg Tablet PO (08:03)
[2021-02-26] MEDS: aspirin 81 mg EC Tablet PO (08:03)
[2021-02-26] MEDS: clopidogrel 75 mg Tablet PO (08:04)
[2021-02-26] MEDS: tamsulosin 0.4 mg Capsule PO (08:04)
[2021-02-26] MEDS: docusate sodium 100 mg Capsule PO (08:05)
--- NOTE | 2021-02-26 09:59 | PC.CHAP ---
Pastoral Care Encounter/Spiritual Assessment Type of Contact [] Declined banking teacher visit [] Patient/Family/Request visit [] Outpatient visit [] Follow-up visit [] Physician referral [] Code/Alert [x] Routine visit [] Staff referral [] Actively dying [] Patient sleeping [] Family support [] [] Out of room [] Palliative care [] [] Receiving care in room [] Pre-surgical visit [] Trauma [] Long length of stay [] ICU visit [] Other: Relational/Emotional Strength [] Patient feels connected with others/family/visitors/staff [] Distress [] Loneliness/isolation [] Abandonment Spirituality of Patient [] Person of Daksha [] Attends Roman Catholic of their [place] [] Believes in Prayer [] Reads Bible or Gnosticist materials [] There are Spiritual issues to be addressed Production Specialist Interventions [x] Prayer [] Active listening [] Non-anxious presence [] Spiritual/emotional support [] Crisis/trauma care [] Spiritual counseling [] Bereavement support [] Provided bereavement packet [] Provided Bible/devotional materials [] Provided toy/stuffed animal, coloring book to patient or family member [] Provided Communion [] Anointing/[place] [] Salvation [x] Completed spiritual assessment [] Other: Impact on Illness or Injury [] Angry [] Fearful [] Anxious [] Often cries [] Exhaustion [] Unable to work [] Unable to attend confucianism [] Unable to walk/stand [] Unable to read [] Unable to drive [] Unable to eat/drink [] Unable to sleep [] Unable to be with family [] Patient intubated [] Other: Summary patient resting well... desiring prayer Time spent with patient 5 min
--- NOTE | 2021-02-26 10:04 | PM.SDS ---
Short Stay Summary Providers Date of Admit/Discharge: 02/26/21 Attending Provider: Lyle Lovell M.D Primary Care Provider: ANNE MARIE Beverly Chief Complaint: [facility] HPI History of Present Illness Mauro Espino is a 80 year old male with past medical history significant for severe PAD, continuous tobacco abuse hypertension hyperlipidemia diabetes mellitus was seen in cardiology office for abnormal stress test and significant chest pain and shortness of breath. Patient's diagnostic cath was performed on 02/20 that showed patent POZO to LAD and SVG to OM however SVG to RCA was occluded. [place] prox RCA had severe CAD. His intervention was staged as patient had severe calcification of the proximal RCA stenosis requiring arthrecomy. Review of Systems Const: Reports: fatigue; Denies: fever(s), chills, change in weight or diaphoresis Eyes: Denies: change in vision or eye redness ENMT: Denies: throat pain, odynophagia, mouth pain or epistaxis Card: Reports: irregular heart rhythm and dyspnea on exertion; Denies: chest pain, palpitations, edema, syncope, pre-syncope, orthopnea or leg pain with exertion Resp: Denies: dyspnea, productive cough or wheezing GI: Denies: nausea, vomiting, hematemesis, hematochezia or melena : Denies: hematuria Musc: Denies: extremity swelling or joint pain Skin/Breast: Denies: rash, pruritus, erythema or new lesions Neuro: Denies: numbness in extremities, weakness in extremities, sensory changes, frequent falls, Slurred speech present or difficulty communicating thoughts Psych: Denies: anxiety, depression, irritability, suicidal ideation or homicidal ideation Endo: Denies: polyuria, polydipsia or excessive sweating Jeff/Lymph: Denies: easy bruising or easy bleeding Home Meds/Allergies Home Medications and Allergies Home Medications Medication Instructions Recorded Confirmed Type aspirin 81 mg tablet,delayed 81 mg PO DAILY@0800 tab 09/08/19 03/05/21 History release docusate sodium 100 mg capsule 100 mg PO BID@0800,199908/27/20 03/05/21 History alendronate 70 mg PO Q7D 09/18/20 03/05/21 History glipizide 2.5 mg PO DAILY@0802/07/21 03/05/21 History tamsulosin 0.4 mg PO DAILY@0800 02/07/21 03/05/21 History acetaminophen-codeine 30 mg PO PRN PRN 02/19/21 03/05/21 History Allergies Allergy/AdvReac Type Severity Reaction Status Date / Time No Known Allergies Allergy Verified 03/05/21 10:32 PFSH Acute PFSH: Medical History Emphysema/COPD GERD (gastroesophageal reflux disease) History of GI bleed Hx pulmonary embolism Hyperlipemia, mixed Hypothyroidism -Noted elevated TSH, normal free T4 -Continue levothyroxine Peripheral arterial disease Protracted bacterial bronchitis Type 2 diabetes mellitus with complication, without long-term current use of insulin -A1c at goal-6.2 -Accuchecks, ISS, hypoglycemia precautions -consistent carb diet as tolerated Urinary retention Surgical History H/O cataract extraction RIGHT 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 Family History Mother Diabetes Hypertension Other CAD (coronary artery disease) Myocardial infarction Social History Smoking and tobacco status: former smoker Second hand smoke exposure: No Smoking risk assessment/counseling performed?: No Alcohol intake: never Desire information about alcohol rehabilitation?: No Counseling given: No Desire information about substance/drug rehabilitation?: No Counseling given: No Lives independently: Yes Household members: spouse Marital status: Current occupational status: retired History of recent travel: No Current gender identity: Male Vitals/I&O/Wt Last Vital Signs Temp 97.8 F 02/26/21 08:00 Pulse 72 02/26/21 08:27 Resp 23 H 02/26/21 08:00 BP 145/77 02/26/21 08:00 Pulse Ox 94 02/26/21 08:27 02/25/21 02/26/21 02/26/21 22:59 06:59 14:59 Intake Total 1100 / 1100 360 / 360 Output Total 600 / 875 820 / 1695 150 / 150 Balance -600 / -875 280 / -595 210 / 210 Physical Exam Narrative: EXAM NARRATIVE: GENERAL: Patient is alert, awake and oriented x3. NECK: No jugular vein distension. HEENT: No cyanosis. No icterus. No pallor. HEART: Regular S1 and S2. No murmur, rub or gallop. LUNGS: Clear to auscultate bilaterally. ABDOMEN: Soft, nontender and nondistended. Positive bowel sounds. No guarding, rebound or tenderness. CENTRAL NERVOUS SYSTEM: Grossly nonfocal. EXTREMITIES: Lower extremities with lower extremity amputation Hospital Course Hospital Course 79-year-old male past medical history significant for severe PAD, continuous tobacco abuse. hypertension hyperlipidemia diabetes mellitus who had come for staged PCI of prox RCA. He undwent successful revascularization with RADHA x 2 post orbital arthrectomy. Patient did well overnight and is ready to be discharged. 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 Routin e Exams 02/25/21 07:27 Taken Discharge Plan Discharge Patient Disposition: Home Condition: Stable Prescriptions: Continued aspirin 81 mg tablet,delayed release (DR/EC) 81 mg PO DAILY@0800 RF: 0 docusate sodium [Colace] 100 mg capsule 100 mg PO BID@0800,1999 RF: 0 levothyroxine 25 mcg capsule 25 mcg PO DAILY Qty: 90 RF: 0 ramipril 10 mg capsule 10 mg PO DAILY@0800 Qty: 30 RF: 6 simvastatin 40 mg tablet 40 mg PO DAILY@1999 Qty: 90 RF: 0 alendronate 70 mg tablet 70 mg PO Q7D RF: 0 tamsulosin 0.4 mg capsule 0.4 mg PO DAILY@0800 RF: 0 glipizide 5 mg tablet 2.5 mg PO DAILY@0800 RF: 0 acetaminophen-codeine 30 mg tablet 30 mg PO PRN PRN (Reason: Pain) RF: 0 clopidogrel [Plavix] 75 mg tablet 75 mg PO DAILY Qty: 90 RF: 3 Discontinued omeprazole 20 mg capsule,delayed release(DR/EC) 20 mg PO BID@, RF: 0 No Action gabapentin 300 mg capsule 300 mg PO TID@08,14,20 Qty: 90 RF: 2 Discharge Orders: Discharge Order (Routine); Ordered 02/26/21 Ordered By: Lyle Lovell Referrals: Chasidy Hall MD [Physician] - 1 month (Please follow-up with Dr. Hall on WednesdayApril 02 at 1:30P.M. If you have any questions. or need reschedule. Please call ) Sarah Hernández FNP [Nurse Practitioner] - 7-10 days (Please follow-up with Sarah Hernández on March 05 at 10:30A.M. If you have any questions or need to reschedule. Please call ) Discharge Diet: Cardiac Discharge Activity: Increase activity as tolerated Patient Instructions: Coronary Artery Disease (DC), Coronary Angioplasty (DC), Post Angiogram Home Care Instructions Activity Restrictions/Additional Instructions: Please do not lift more than 5 pounds of weight for the next 5 days Attestations Medical Necessity Statement*: Care expected to cross 2 midnights Time Spent in Patient Care*: less than 30 min Status at Discharge: Cognitive status at discharge: cognitively intact, Behavioral status at discharge: cooperative and independent in ADL's, Quality Metrics Clinical Quality Measures: During this hospital stay, did patient experience: None Coding Level of Care Code Acute Ammonia Refrigeration Technician for Oniel Ozuna
--- NOTE | 2021-02-26 14:34 | PC.NURSE ---
Patient escorted out via wheelchair for discharge at approx 1430. No complaints from patient at this time.
== END 2021-02-26 14:30 | disposition home or self-care (01) ==
LOC: CCL 07:17 → CSU 08:10 → CCL 12:03 → ICU 12:04 → CSU 02-26 01:36
PROVIDERS: PCP Nurse Practitioner Family; Visit Provider Internal Medicine
DX: I65.21 Occlusion and stenosis of right carotid artery (principal); F17.210 Nicotine dependence, cigarettes, uncomplicated; I10 Essential (primary) hypertension; E78.5 Hyperlipidemia, unspecified; E11.9 Type 2 diabetes mellitus without complications; I25.10 Atherosclerotic heart disease of native coronary artery without angina pectoris; Z79.82 Long term (current) use of aspirin; J43.9 Emphysema, unspecified; K21.9 Gastro-esophageal reflux disease without esophagitis; Z86.711 Personal history of pulmonary embolism; E78.2 Mixed hyperlipidemia; E03.9 Hypothyroidism, unspecified; Z82.49 Family history of ischemic heart disease and other diseases of the circulatory system; Z83.3 Family history of diabetes mellitus
CPT/HCPCS: 36415; 80048; 85025; 85347; C1724; C1725; C1769; C1874; C1887; C1894; C9602; J0280; J1644; J2250; J3010; J3490; J7030; Q0163; Q9967

== ENCOUNTER → 2021-03-05 11:01 | Outpatient (BNVA) | payer MEDICARE, MEDICAID, SELFPAY | PROVIDERS: PCP Nurse Practitioner Family; Visit Provider Nurse Practitioner Family | DX: I25.10 Atherosclerotic heart disease of native coronary artery without angina pectoris (principal); Z09 Encounter for follow-up examination after completed treatment for conditions other than malignant neoplasm; I25.719 Atherosclerosis of autologous vein coronary artery bypass graft(s) with unspecified angina pectoris | CPT/HCPCS: 80048 ==

== ENCOUNTER → 2021-04-07 00:01 | Outpatient (BNVA) | payer MEDICARE, MEDICAID, SELFPAY | PROVIDERS: PCP Nurse Practitioner Family; Visit Provider Nurse Practitioner Family | DX: E05.90 Thyrotoxicosis, unspecified without thyrotoxic crisis or storm (principal); E03.9 Hypothyroidism, unspecified | CPT/HCPCS: 84443 ==

== ENCOUNTER 2021-04-08 12:06 | Outpatient (CLI) | payer MEDICARE, MEDICAID, SELFPAY ==
--- NOTE | 2021-04-08 12:45 | US_ITS ---
WS: [id number] ULTRASOUND THYROID TECHNIQUE: Ultrasound of the thyroid. CLINICAL INFORMATION: E04.9 - Nontoxic goiter, unspecified COMPARISON: None. FINDINGS: Thyroid: Right and left thyroid lobes are small in size with normal echotexture. No thyroid nodules a re present. Right thyroid lobe: 1.4 cm x 0.7 cm x 0.7 cm Left thyroid lobe: 1.8 cm x 0.6 cm x 0.7 cm. Isthmus: 0.2 mm. Cervical lymphadenopathy: None. US/US thyroid [id number] IMPRESSION: 1. Small atrophic thyroid gland with the right and left thyroid lobes approxim ately 0.4 cc. 2. No visualized thyroid nodules.
== END 2021-04-08 12:07 | disposition home or self-care (01) ==
LOC: RAD 12:11
PROVIDERS: PCP Nurse Practitioner Family; Visit Provider Nurse Practitioner Family
DX: E04.9 Nontoxic goiter, unspecified (principal)
CPT/HCPCS: 76536

== ENCOUNTER → 2021-06-09 00:01 | Outpatient (BNVA) | payer MEDICARE, MEDICAID, SELFPAY | PROVIDERS: PCP Nurse Practitioner Family; Visit Provider Nurse Practitioner Family | DX: Z79.899 Other long term (current) drug therapy (principal); I10 Essential (primary) hypertension; E03.9 Hypothyroidism, unspecified; E11.9 Type 2 diabetes mellitus without complications; E78.5 Hyperlipidemia, unspecified; Z79.01 Long term (current) use of anticoagulants | CPT/HCPCS: 80053; 80061; 83036; 84443; 85025 ==

== ENCOUNTER 2021-07-07 08:51 | Outpatient (RCR) | payer MEDICARE, MEDICAID, SELFPAY | END 2021-07-13 23:59 | disposition home or self-care (01) | LOC: SPT 08:51 | PROVIDERS: PCP Nurse Practitioner Family; Visit Provider Nurse Practitioner Family | DX: R26.9 Unspecified abnormalities of gait and mobility (principal); Z89.511 Acquired absence of right leg below knee | CPT/HCPCS: 97110; 97116; 97161 ==

== ENCOUNTER 2021-07-10 11:38 | Inpatient (IN) | payer MEDICARE, MEDICAID, SELFPAY ==
[2021-07-10] VITALS (7 sets, daily range): BP systolic 121–158; BP diastolic 62–86; PULSE 58–100; RESP 16–18; TEMP 36.7–37.2; O2SAT 90–95; BMI 21.7; BMI 19.5
--- NOTE | 2021-07-10 11:41 | XR_ITS ---
WS: [id number] Exam: XR hip LT 2-3V wo/w pel* [id number] Date/Time of Exam: 07/10/2021 11:41 AM Reason For Exam: pain/fall There is a fracture through the midportion of the femoral neck with minimal coxa vera deformity, no d islocation. Moderate DJD of the joint compartment. Vascular stent in the left common femoral artery. XR/XR hip LT 2-3V wo/w pel* [id number] IMPRESSION: 1. Subcapital fracture of the left hip with minimal coxa vera deformity..
[2021-07-10 11:53] LABS: Basophils # 0.1 10^3/uL (0.0-0.1); Basophils % 0.4 %; Eosinophils # 0.3 10^3/uL (0.0-0.8); Hematocrit 45.4 % (42.0-52.0); Hemoglobin 15.4 g/dL (11.7-16.6); Lymphocytes # 0.7 10^3/uL (0.8-4.8); Lymphocytes % 6.5 %; Mean Corpuscular HGB Conc 33.9 g/dL (30.0-36.0); Mean Corpuscular Volume 88.3 fl (80-94); Mean Platelet Volume 9.1 fL (7.4-10.4); Monocytes # 0.7 10^3/uL (0.2-0.9); Monocytes % 5.8 %; Neutrophils # 9.47 10^3/uL (1.8-7.7); Neutrophils % 83.9 %; Nucleated Red Blood Cells % 0 %; Platelet Count 276 10^3/cmm (130-400); Red Blood Count 5.14 10^6/uL (4.1-5.3); White Blood Count 11.3 10^3/uL (4.0-10.0)
[2021-07-10 12:12] LABS: Alanine Aminotransferase 9 U/L (0-41); Albumin Level 4.1 g/dL (3.5-5.2); Alkaline Phosphatase 94 IU/L (40-130); Aspartate Amino Transferase 13 U/L (0-40); Blood Urea Nitrogen 9 mg/dL (8-23); Calcium 9.1 mg/dL (8.5-10.5); Carbon Dioxide 23 mmol/L (22-29); Chloride 93 mmol/L (98-107); Creatine Phosphokinase 63 U/L (39-308); Globulin 3.1 g/dL (1.3-4.6); Glucose 166 mg/dL (65-115); Osmolality Calculated 270 mOsm/kg (285-295); Sodium 129 mmol/L (136-145); Total Bilirubin 0.8 mg/dL (0.15-1.2); Total Protein 7.2 g/dL (6.6-8.7)
[2021-07-10 12:26] LABS: Add Urine Microscopic? YES; Bilirubin Urine Neg (Negative); Blood Urine 2+ (Negative); Glucose Urine UA Trace (Normal); Ketones Urine Negative (Negative); Leukocyte Esterase Urine 2+ (Negative); Nitrate Urine Negative (Negative); Protein Urine Neg (Negative); Specific Gravity, Urine 1.015 (1.005-1.030); Urine Appearance Cloudy (CLEAR); Urine Color Yellow (Yellow); Urobilinogen Urine 4 mg/dL (Negative); pH Urine 5 (5-7)
[2021-07-10 12:27] LABS: Add Urine Culture? Yes; Bacteria Urine 4+ /hpf; RBC Urine 0-4 /hpf (0-2); Squamous Epithelial Cell Urine 0-4 /hpf (0-5); WBC Urine 55-80 /hpf (0-5)
--- NOTE | 2021-07-10 12:29 | ECG_ITS ---
[facility] Test Date: 2021-07-10 Pat Name: Mauro Espino Department: Room: Gender: Male Film Cleaner: : 1940 Requested By: Ravindra Jiang Order Number: [id number] Alexys MD: Jeffery Wilkes M.D. Measurements Intervals [place] Rate: 78 P: 66 SD: 165 QRS: -56 QRSD: 126 T: 60 QT: 387 QTc: 443 Interpretive Statements SINUS RHYTHM WITH OCCASIONAL VENTRICULAR PREMATURE COMPLEXES LEFT AXIS DEVIATION [QRS AXIS < -30] MODERATE INTRAVENTRICULAR CONDUCTION DELAY [110+ ms QRS DURATION] Compared to ECG 02/07/2021 11:17:50 Left-axis deviation now present Myocardial infarct finding no longer present Electronically Signed On 07-10-2021 23:56:39 CDT by Jeffery Wilkes M.D. [id number]
--- NOTE | 2021-07-10 12:29 | XR_ITS ---
WS: [id number] Exam: XR chest 1V portable [id number] Date/Time of Exam: 07/10/2021 12:31 PM Reason For Exam: dyspnea/cough Comparison 09/18/2020. The lungs are hyperinflated and clear. Heart size is normal. The mediastinum is not widened. Signs of previous CABG surgery and median sternotomy. No pleural effusions. Several old left rib fractures. XR/XR chest 1V portable [id number] IMPRESSION: 1. Pulmonary hyperinflation which may indicate COPD. Mild chronic plaque atelec tasis in the left base. 2. No acute process.
[2021-07-10] MEDS: cefTRIAXone 1,000 MG in sodium chloride 0.9% (plus) 50 ML 100 MG IV (12:42)
--- NOTE | 2021-07-10 12:48 | W.ED.FALL ---
HPI - Fall General: Chief Complaint: Fall Stated Complaint: FALL YESTERDAY, L HIP PAIN Time Seen by Provider: 07/10/21 11:40 History of Present Illness: HPI Narrative: 81-year-old male who has previous bilateral lower extremity amputations. [id number] amputation of the left low the knee amputation on the right patient has a prosthesis for the right leg. He fell yesterday while using his walker and trying to go up a step. He now has severe left hip pain. Unable to move without significant discomfort. EMS was called yesterday and he refused care on scene. Patient has a history of diabetes mellitus as well. He is on aspirin and Plavix. Patient also has a known history of COPD and coronary artery disease with previous bypass. MD complaint: fall Onset (ago): day(s) (1) Fall from: standing Place fall occurred: home Loss of consciousness: None Prolonged down time: no Context: tripped/slipped Associated symptoms-after fall: Denies abdominal pain, chest pain, confusion, difficulty walking, headache(s), hematuria, lightheadedness, neck pain, numbness, short of breath, vertigo or weakness Review of Systems Const: Denies: fever(s), chills, body aches, change in appetite, fatigue or malaise ENMT: Denies: throat pain, ear or mastoid pain, nasal discharge or nasal congestion Card: Denies: chest pain or lightheadedness Resp: Denies: dyspnea, productive cough or non-productive cough GI: Denies: abdominal pain : Denies: hematuria Musc: Denies: neck pain Skin/Breast: Denies: rash or pruritus Neuro: Denies: headache(s), difficulty walking, vertigo or confusion PFSH ED PFSH: Medical History Emphysema/COPD GERD (gastroesophageal reflux disease) History of GI bleed Hx pulmonary embolism Hyperlipemia, mixed Hypothyroidism -Noted elevated TSH, normal free T4 -Continue levothyroxine Peripheral arterial disease Protracted bacterial bronchitis Type 2 diabetes mellitus with complication, without long-term current use of insulin -A1c at goal-6.2 -Accuchecks, ISS, hypoglycemia precautions -consistent carb diet as tolerated Urinary retention Surgical History H/O cataract extraction RIGHT 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 Family History Mother Diabetes Hypertension Other CAD (coronary artery disease) Myocardial infarction Social History Smoking and tobacco status: former smoker Second hand smoke exposure: No Smoking risk assessment/counseling performed?: No Alcohol intake: never Desire information about alcohol rehabilitation?: No Counseling given: No Desire information about substance/drug rehabilitation?: No Counseling given: No Lives independently: Yes Household members: spouse Marital status: Current occupational status: retired History of recent travel: No Current gender identity: Male Physical Exam Const: COMMON NORMALS: no acute distress GENERAL APPEARANCE: cooperative and comfortable ORIENTATION/CONSCIOUSNESS: Yes awake, Yes oriented to person, Yes oriented to place and Yes oriented to time HENMT: COMMON NORMALS: normocephalic, atraumatic and hearing grossly normal bilaterally HEAD & SCALP: normocephalic and atraumatic Neck/C-Spine: COMMON NORMALS: no JVD Resp: COMMON NORMALS: normal respiratory effort, No retractions, No use of accessory muscles and clear to auscultation bilaterally AUSCULTATION: clear to auscultation bilaterally Cardio: COMMON NORMALS: no JVD, regular rate, regular rhythm and No murmurs present (Cardio) RATE: regular rate RHYTHM: regular rhythm GI: COMMON NORMALS: Soft to palpation and No hepatosplenomegaly present AUSCULTATION: Yes normoactive bowel sounds PALPATION: Yes Soft to palpation, No Tenderness to palpation present (GI), No Guarding due to palpation present (GI) and Yes No hepatosplenomegaly present Extremity: OTHER: Bilateral amputations. Below the knee amputation on the right [id number] amputation on the left Neuro: SENSORIUM/ORIENTATION: Yes oriented to person, Yes oriented to place and Yes oriented to time Skin: COMMON NORMALS: no rashes or lesions noted GENERAL SKIN EXAM: no rashes or lesions noted Course Vital Signs: Vital signs: Vital Signs Temperature 98.7 F 07/10/21 11:39 Pulse Rate 80 07/10/21 11:48 Respiratory Rate 18 07/10/21 11:48 Blood Pressure 121/66 07/10/21 11:48 Pulse Oximetry 91 07/10/21 11:48 MDM - Fall MDM Narrative: Medical decision making narrative: Discussed with Dr. Gtz as well as Dr. Dominguez for the hospitalist service. Orders written admit to [facility] consulted to Tresa. Lab Data: Labs: Lab Results 07/10/21 07/10/21 07/10/21 11:45 11:45 11:55 WBC 11.3 10^3/uL H 10 ^3/uL (4.0-10.0) RBC 5.14 10^6/uL 10^6 /uL (4.1-5.3) Hgb 15.4 g/dL g/dL (11.7-16.6) Hct 45.4 % % (42.0-52.0) MCV 88.3 fl fl (80-94) MCH 30.0 pg pg (28.0-34.0) MCHC 33.9 g/dL g/dL (30.0-36.0) RDW 13.0 % % (12.1-15.1) Plt Count 276 10^3/cmm 10^3 /cmm (130-400) MPV 9.1 fL fL (7.4-10.4) Neut % (Auto) 83.9 % % Lymph % (Auto) 6.5 % % [place] % (Auto) 5.8 % % Eos % (Auto) 3.0 % % Baso % (Auto) 0.4 % % Neut # (Auto) 9.47 10^3/uL H 10 ^3/uL (1.8-7.7) Lymph # (Auto) 0.7 10^3/uL L 10^ 3/uL (0.8-4.8) [place] # (Auto) 0.7 10^3/uL 10^3/ uL (0.2-0.9) Eos # (Auto) 0.3 10^3/uL 10^3/ uL (0.0-0.8) Baso # (Auto) 0.1 10^3/uL 10^3/ uL (0.0-0.1) Nucleated RBC % (a uto) 0 % % Nucleated RBCs # 0.0 /100WBC /100W BC Sodium 129 mmol/L L mmol /L (136-145) Potassium 4.0 mmol/L mmol/L (3.5-5.1) Chloride 93 mmol/L L mmol/ L (98-107) Carbon Dioxide 23 mmol/L mmol/L (22-29) Anion Gap 17.0 (5-19) BUN 9 mg/dL mg/dL (8-23) Creatinine 0.7 mg/dL mg/dL (0.7-1.2) GFR Calculation Not Reportable Glucose 166 mg/dL H mg/dL (65-115) Calculated Osmolal ity 270 mOsm/kg L mOs m/kg (285-295) Calcium 9.1 mg/dL mg/dL (8.5-10.5) Total Bilirubin 0.8 mg/dL mg/dL (0.15-1.2) AST 13 U/L U/L (0-40) ALT 9 U/L U/L (0-41) Alkaline Phosphata se 94 IU/L IU/L (40-130) Creatine Kinase 63 U/L U/L (39-308) Total Protein 7.2 g/dL g/dL (6.6-8.7) Albumin 4.1 g/dL g/dL (3.5-5.2) Globulin 3.1 g/dL g/dL (1.3-4.6) Urine Color Yellow (Yellow) Urine Appearance Cloudy (CLEAR) Urine pH 5 (5-7) Ur Specific Gravit y 1.015 (1.005-1.030) Urine Protein Neg (Negative) Urine Glucose (UA) Trace H (Normal) Urine Ketones Negative (Negative) Urine Blood 2+ H (Negative) Urine Nitrate Negative (Negative) Urine Bilirubin Neg (Negative) Urine Urobilinogen 4 mg/dL H mg/dL (Negative) Ur Leukocyte Paula ase 2+ H (Negative) Urine RBC 0-4 /hpf H /hpf (0-2) Urine WBC 55-80 /hpf H /hpf (0-5) Ur Squamous Epith Cells 0-4 /hpf H /hpf (0-5) Amorphous Sediment Not Reportable Urine Bacteria 4+ /hpf H /hpf (NONE) Discharge Plan Discharge Patient Disposition: Admitted As Inpatient Clinical Impression: Subcapital fracture of left hip, PVD (peripheral vascular disease), Diabetes, COPD (chronic obstructive pulmonary disease), Above knee amputation of left lower extremity, CAD (coronary artery disease), History of below-knee amputation of right lower extremity, Cystitis Condition: Stable Coding Level of Care Code ED Advertising Director for Chg Fwd Exam Detailed
[2021-07-10 13:04] LABS: INR 1.01 (0.8-1.2); Partial Thromboplastin Time 29.8 SECONDS (23.9-36.7)
--- NOTE | 2021-07-10 13:06 | PM.HP ---
Providers/Chief Complaint Primary Care Provider: ANNE MARIE Beverly Chief Complaint: FALL YESTERDAY, L HIP PAIN History of Present Illness Mauro Espino is a 81 year old male with past medical history of diabetes, coronary artery disease s/p CABG, s/p recent intervention to RCA with 2 RADHA 02/2021 ( patent POZO to LAD and SVG to OM however SVG to RCA was occluded. [place] prox RCA had severe CAD.S/P RADHA x 2 post orbital arthrectomy.) Peripheral arterial disease s/p bilateral lower extremity amputations. 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 Came to the ER for further work-up. Upon arrival in the ER pertinent imaging studies: XR hip LT 2-3V wo/w pel:Subcapital fracture of the left hip with minimal coxa vera deformity. X-ray chest: No acute changes. EKG: Sinus rhythm with occasional PVCs. Review of Systems Const: Denies: fever(s), chills, body aches, change in appetite or diaphoresis Card: Denies: palpitations Resp: Denies: dyspnea, productive cough, wheezing or pain on inspiration GI: Denies: abdominal pain, nausea, vomiting, diarrhea or constipation : Denies: flank pain or difficulty urinating Musc: Denies: back pain Neuro: Denies: headache(s) or confusion Medications/Allergies Home Medications Medication Instructions Recorded Confirmed Last Taken Type aspirin 81 mg tablet,delayed 81 mg PO DAILY@0800 tab 09/08/19 07/10/21 07/09/21 History release docusate sodium 100 mg capsule 100 mg PO BID@080008/27/20 07/10/21 07/09/21 History ramipril 10 mg capsule 10 mg PO DAILY@0800 #30 cap 01/31/21 07/10/21 07/09/21 Rx simvastatin 40 mg tablet 40 mg PO DAILY@1999 #90 tab 02/11/21 07/10/21 07/09/21 Rx clopidogrel [Plavix] 75 mg PO DAILY #90 tab 0607/10/21 07/09/21 Rx alendronate 70 mg tablet 70 mg PO Q7D #12 tab 04/17/21 07/10/21 07/06/21 Rx levothyroxine 50 mcg capsule 50 mcg PO DAILY #90 cap 06/13/21 07/10/21 07/09/21 Rx gabapentin 300 mg PO TID 07/10/21 07/10/21 07/09/21 History omeprazole 20 mg PO BID 07/10/21 07/10/21 07/09/21 History tamsulosin 0.4 mg PO DAILY 07/10/21 07/10/21 07/09/21 History Allergies Allergy/AdvReac Type Severity Reaction Status Date / Time No Known Allergies Allergy Verified 06/13/21 08:57 PFSH Acute PFSH: Medical History Emphysema/COPD GERD (gastroesophageal reflux disease) History of GI bleed Hx pulmonary embolism Hyperlipemia, mixed Hypothyroidism -Noted elevated TSH, normal free T4 -Continue levothyroxine Peripheral arterial disease Protracted bacterial bronchitis Type 2 diabetes mellitus with complication, without long-term current use of insulin -A1c at goal-6.2 -Accuchecks, ISS, hypoglycemia precautions -consistent carb diet as tolerated Urinary retention Surgical History H/O cataract extraction RIGHT 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 Family History Mother Diabetes Hypertension Other CAD (coronary artery disease) Myocardial infarction Social History Smoking and tobacco status: former smoker Second hand smoke exposure: No Smoking risk assessment/counseling performed?: No Alcohol intake: never Desire information about alcohol rehabilitation?: No Counseling given: No Desire information about substance/drug rehabilitation?: No Counseling given: No Lives independently: Yes Household members: spouse Marital status: Current occupational status: retired History of recent travel: No Current gender identity: Male Vitals/I&O/Wt Last Vital Signs Temp 98.7 F 07/10/21 11:39 Pulse 80 07/10/21 11:48 Resp 18 07/10/21 11:48 BP 121/66 07/10/21 11:48 Pulse Ox 91 07/10/21 11:48 Weight last 48 hrs Weight 72.575 kg Physical Exam Const: COMMON NORMALS: patient oriented x3 HENMT: COMMON NORMALS: normocephalic and atraumatic HEAD & SCALP: normocephalic and atraumatic Resp: COMMON NORMALS: clear to auscultation bilaterally AUSCULTATION: clear to auscultation bilaterally Cardio: COMMON NORMALS: regular rate, regular rhythm, S1 normal heart sound present, S2 normal heart sound present, No gallops present (Cardio), No murmurs present (Cardio), No rub (Cardio) and Peripheral pulses 2+ throughout RATE: regular rate RHYTHM: regular rhythm HEART SOUNDS: S1 normal heart sound present and S2 normal heart sound present PERIPHERAL PULSES: Peripheral pulses 2+ throughout GI: COMMON NORMALS: Normal to inspection, nondistended, normoactive bowel sounds present, Soft to palpation, non-tender, No hepatosplenomegaly present and no masses AUSCULTATION: Yes normoactive bowel sounds RECTAL EXAM: Yes deferred Extremity: OTHER: Left hip tenderness present Neuro: COMMON NORMALS: patient oriented x3 Data : 07/10/21 11:45 07/10/21 11:45 A&P Assessment and plan (1) Subcapital fracture of left hip: Appreciate orthopedic recommendations. Pain control Bowel regimen. Lovenox for anticoagulation Status: Acute (2) CAD (coronary artery disease): Continue aspirin and Plavix Status: Acute (3) Hypothyroidism: levothyroxine 50 mcg p.o. daily Status: Acute Qualifiers: Hypothyroidism type: unspecified Qualified Code(s): E03.9 - Hypothyroidism, unspecified (4) PVD (peripheral vascular disease): Status: Acute Attestations Medical Necessity Statement*: Patient is to be in hospital for management of left hip fracture. Anticipated length of stay greater than 2 midnights. Coding Level of Care Code Acute Food Technology Teacher for [facility] Fwd Diagnoses Subcapital fracture of left hip S72.012A CAD (coronary artery disease) I25.10 Hypothyroidism E03.9 Hypothyroidism type: unspecified PVD (peripheral vascular disease) I73.9
[2021-07-10 16:56] LABS: Glucose Point of Care 121 mg/dL (70-110)
[2021-07-10] MEDS: sodium chloride 0.9% 1,000 ML 100 ML IV (16:59)
[2021-07-10] MEDS: enoxaparin 40 mg/0.4 mL Syringe SUBCUT (16:59)
[2021-07-10] MEDS: clopidogrel 75 mg Tablet PO (16:59)
--- NOTE | 2021-07-10 18:09 | P.CONIM_ITS ---
Providers/Reason For Consult Consulting Physician/Specialty*: Orthopedics Reason for Consult*: Left Hip Pain Attending Physician: Asa Dominguez MD Primary Care Provider: ANNE MARIE Beverly History of Present Illness History of Present Illness Mauro Espino is a 81 year old male who fell at his residence while walking up stairs on 07/09/21. He was evaluated at the [facility] ER on 07/10/21 where xrays confirmed a Left Hip Fracture. Orthopedics were consulted for his injuries. He was seen on still complaining of Left Hip Pain. He describes the pain as sharp, stabbing, constant pain and localized to Left Hip. Any movement increases his pain. His pain is 5/10. rest has reduced his pain. he denied any LOC in the fall, Denies any other pain. He has had a BKA on the RLE in and a AKA . He has Prosthetic limbs for each Lower extremity. Review of Systems Const: Denies: fever(s), chills, body aches, change in appetite, fatigue, malaise or diaphoresis Eyes: Denies: photophobia ENMT: Denies: throat pain, enlarged tonsils, ear or mastoid pain, nasal discharge or nasal congestion Card: Denies: chest pain, palpitations or lightheadedness Resp: Denies: dyspnea, productive cough, non-productive cough, wheezing or pain on inspiration GI: Denies: abdominal pain, nausea, vomiting, diarrhea or constipation : Denies: flank pain, difficulty urinating or hematuria Musc: Denies: neck pain or back pain Skin/Breast: Denies: rash, pruritus or surgical incision Neuro: Denies: headache(s), difficulty walking, vertigo or confusion All/Imm: Denies: acute wheezing Meds/Allergies Home Medications and Allergies Home Medications Medication Instructions Recorded Confirmed Last Taken Type aspirin 81 mg tablet,delayed 81 mg PO DAILY@0800 tab 09/08/19 07/10/21 07/09/21 History release docusate sodium 100 mg capsule 100 mg PO BID@0800,199908/27/20 07/10/21 07/09/21 History ramipril 10 mg capsule 10 mg PO DAILY@0800 #30 cap 01/31/21 07/10/21 07/09/21 Rx simvastatin 40 mg tablet 40 mg PO DAILY@1999 #90 tab 02/11/21 07/10/21 07/09/21 Rx clopidogrel [Plavix] 75 mg PO DAILY #90 tab 02/20/21 07/10/21 07/09/21 Rx alendronate 70 mg tablet 70 mg PO Q7D #12 tab 04/17/21 07/10/21 07/06/21 Rx levothyroxine 50 mcg capsule 50 mcg PO DAILY #90 cap 06/13/21 07/10/21 07/09/21 Rx gabapentin 300 mg PO TID 07/10/21 07/10/21 07/09/21 History omeprazole 20 mg PO BID 07/10/21 07/10/21 07/09/21 History tamsulosin 0.4 mg PO DAILY 07/10/21 07/10/21 07/09/21 History Allergies Allergy/AdvReac Type Severity Reaction Status Date / Time No Known Allergies Allergy Verified 06/13/21 08:57 Current Medications Current Medications Generic Name Dose Route Start Last Admin Trade Name Freq PRN Reason Stop Dose Admin Clopidogrel Bisulfate 75 mg 07/10/21 13:55 07/10/21 16:59 Clopidogrel 75 Mg Tablet PO 75 mg DAILY DINA Administration Enoxaparin Sodium 40 mg 07/10/21 13:00 07/10/21 16:59 Enoxaparin 40 Mg/0.4 Ml Syringe SUBCUT 40 mg Q24H DINA Administration Sodium Chloride 1,000 mls @ 100 mls/hr 07/10/21 14:42 07/10/21 16:59 Sodium Chloride 0.9% IV 100 mls/hr .Q10H DINA Administration Insulin Human Lispro 0 unit 07/10/21 18:00 07/10/21 17:00 Insulin Lispro 100 Unit/1 Ml SUBCUT Not Given WM&BEDTIME DINA Protocol PFSH Acute PFSH: Medical History Emphysema/COPD GERD (gastroesophageal reflux disease) History of GI bleed Hx pulmonary embolism Hyperlipemia, mixed Hypothyroidism -Noted elevated TSH, normal free T4 -Continue levothyroxine Peripheral arterial disease Protracted bacterial bronchitis Type 2 diabetes mellitus with complication, without long-term current use of ins ulin -A1c at goal-6.2 -Accuchecks, ISS, hypoglycemia precautions -consistent carb diet as tolerated Urinary retention Surgical History H/O cataract extraction RIGHT 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 Family History Mother Diabetes Hypertension Other CAD (coronary artery disease) Myocardial infarction Social History Smoking and tobacco status: former smoker Second hand smoke exposure: No Smoking risk assessment/counseling performed?: No Alcohol intake: never Desire information about alcohol rehabilitation?: No Counseling given: No Desire information about substance/drug rehabilitation?: No Counseling given: No Lives independently: Yes Household members: spouse Marital status: Current occupational status: retired History of recent travel: No Current gender identity: Male Dietary Habits: Current diet type/program: regular Caffeine: Yes Exercise: What type of physical activity do you participate in?: none Safety: Seatbelt use: always Home Safety: Water heater temperature set < 120 degrees: No Working smoke detector in home: Yes Fire extinguisher in home: Yes Carbon monoxide detector in home: Yes Firearms in home: No Vitals/I&O/Wt Last Vital Signs Temp 98.9 F 07/10/21 14:49 Pulse 77 07/10/21 15:27 Resp 16 07/10/21 14:49 BP 158/83 07/10/21 14:49 Pulse Ox 91 07/10/21 15:27 07/10/21 07/10/21 07/10/21 06:59 14:59 22:59 Intake Total 50 / 50 Balance 50 / 50 Weight last 48 hrs Weight 144 lb Weight 160 lb Physical Exam Narrative: EXAM NARRATIVE: RLE: BKE stump, warm to touch, neg Log roll on the RLE LLE: AKA stump with sock, warm to touch, positive log roll LLE. NT with palpation in Lumbar/Thoracic region. Const: COMMON NORMALS: no acute distress and patient oriented x3 HENMT: COMMON NORMALS: normocephalic and atraumatic HEAD & SCALP: normocephalic and atraumatic Neck/C-Spine: COMMON NORMALS: full ROM Resp: COMMON NORMALS: normal respiratory effort Cardio: COMMON NORMALS: regular rate and regular rhythm RATE: regular rate RHYTHM: regular rhythm GI: COMMON NORMALS: Soft to palpation PALPATION: Yes Soft to palpation : COMMON NORMALS: Yes no CVA tenderness BLADDER/KIDNEY EXAM: Yes no CVA tenderness Back/Pelvis: COMMON NORMALS: no CVA tenderness Neuro: COMMON NORMALS: patient oriented x3 A&P Assessment and plan (1) Fracture of femoral neck, left: ORIF Left hip tomorrow with Perc pinning. Npo after Midnight. Status: Acute (2) S/P AKA (above knee amputation): Status: Acute Coding Level of Care Code Acute Jewel Sawyer for [facility] Fwd Diagnoses Fracture of femoral neck, left S72.002A S/P AKA (above knee amputation) Z89.619
[2021-07-10] MEDS: atorvastatin 40 mg Tablet 20 MG PO (20:41)
[2021-07-10 20:59] LABS: Glucose Point of Care 135 mg/dL (70-110)
[2021-07-11] VITALS (15 sets, daily range): BP systolic 110–155; BP diastolic 63–85; PULSE 56–86; RESP 12–24; TEMP 36.4–38.4; O2SAT 90–98
--- NOTE | 2021-07-11 | XR_ITS ---
WS: [id number] C-ARM RADIOGRAPHS LEFT HIP; 3 IMAGES HISTORY: hip screws. COMPARISON: 07/10/2021 3 screws have been placed through the LEFT femoral neck fracture. Femoral neck fracture in good posit ion and alignment. XR/XR hip LT 2-3V wo/w pel* [id number] IMPRESSION: Intraoperative screw fixation LEFT femoral neck fracture.
--- NOTE | 2021-07-11 | SCC_ITS ---
Procedure Done: 1. closed reduction percutaneous screw of left femoral neck 98.2 seconds of fluoroscopic guidance, for a cumulative dose of 9.48 mGy, was provided to Dr. Lawler by the radiology department. C-arm images of the LEFT hip were saved for the patient's permanent record. [facility]
[2021-07-11] MEDS: sodium chloride 0.9% 1,000 ML 100 ML IV (02:06)
[2021-07-11 03:00] LABS: Basophils # 0.1 10^3/uL (0.0-0.1); Basophils % 0.7 %; Eosinophils # 0.5 10^3/uL (0.0-0.8); Eosinophils % 5.5 %; Hemoglobin 13.5 g/dL (11.7-16.6); Lymphocytes # 0.8 10^3/uL (0.8-4.8); Lymphocytes % 8.4 %; Mean Corpuscular HGB Conc 32.9 g/dL (30.0-36.0); Mean Corpuscular Hemoglobin 29.2 pg (28.0-34.0); Mean Corpuscular Volume 88.6 fl (80-94); Mean Platelet Volume 9.1 fL (7.4-10.4); Monocytes # 0.6 10^3/uL (0.2-0.9); Monocytes % 6.3 %; Neutrophils # 7.17 10^3/uL (1.8-7.7); Neutrophils % 78.7 %; Nucleated Red Blood Cells % 0 %; Platelet Count 224 10^3/cmm (130-400); Red Blood Count 4.63 10^6/uL (4.1-5.3); White Blood Count 9.1 10^3/uL (4.0-10.0)
[2021-07-11 03:21] LABS: Alanine Aminotransferase 6 U/L (0-41); Albumin Level 3.2 g/dL (3.5-5.2); Alkaline Phosphatase 69 IU/L (40-130); Anion Gap 15.1 (5-19); Aspartate Amino Transferase 9 U/L (0-40); Blood Urea Nitrogen 10 mg/dL (8-23); Calcium 8.3 mg/dL (8.5-10.5); Carbon Dioxide 21 mmol/L (22-29); Chloride 100 mmol/L (98-107); Globulin 2.6 g/dL (1.3-4.6); Glucose 113 mg/dL (65-115); Osmolality Calculated 274 mOsm/kg (285-295); Potassium 4.1 mmol/L (3.5-5.1); Sodium 132 mmol/L (136-145); Total Bilirubin 0.6 mg/dL (0.15-1.2); Total Protein 5.8 g/dL (6.6-8.7)
[2021-07-11 07:04] LABS: Glucose Point of Care 121 mg/dL (70-110)
--- NOTE | 2021-07-11 07:09 | ANES.PREANE2 ---
Pre-Anesthetic Assessment Pre-Anesthetic Assessment: Height/Weight: Height 1.83 m Weight 65.317 kg Temp Pulse Resp BP Pulse Ox 101.2 F H 76 18 155/80 92 07/11/21 06:45 07/11/21 06:45 07/11/21 06:45 07/11/21 06:45 07/11/21 06:45 Preop Diagnosis: Hip dislocation/fracture Proposed Procedure: Operation Date: 07/11/21 13:15 Proposed Procedures p Hip Screw(Left) - Ryan H Nuris, DO Was Beta Gabriella taken within 24 hours: N/A Was Clonidine taken within 24 hours: N/A Social: Comment: Quit years ago Exam: Pre-Anes Outpt Exam: alert, oriented x 3, clear to auscultation bilaterally and regular rate & rhythm Airway: Submandibular: WNL Cervical ROM: WNL MP: 2 History/ROS: No significant complaints Pulmonary: Pulmonary: COPD CV/HEM: CV/HEM: CAD, HTN and NM Comments: s/p CABG GI: GI: GERD Metabolic: Metabolic: DM, Hyperlipidemia and Thyroid Musc/skel: Comments: s/p amputations of BLE - AKA on left and BKA on right Anesthetic Plan: ASA status: 3 Anesthesia: Anesthesia Evaluation and General Risk of > 500 ml blood loss (7ml/kg in children): No Meds/Allergies Current Medications: Current Medications Generic Name Dose Route Start Last Admin Trade Name Freq PRN Reason Stop Dose Admin Atorvastatin Calci um 20 mg 07/10/21 20:00 07/10/21 20:41 Atorvastatin 40 Mg Tablet PO 20 mg DAILY@2000 DINA Administration Clopidogrel Bisulf ate 75 mg 07/10/21 13:55 07/10/21 16:59 Clopidogrel 75 M g Tablet PO 75 mg DAILY DINA Administration Enoxaparin Sodium 40 mg 07/10/21 13:00 07/10/21 16:59 Enoxaparin 40 Mg /0.4 Ml Syringe SUBCUT 40 mg Q24H DINA Administration Sodium Chloride 1,000 mls @ 100 m ls/hr 07/10/21 14:42 07/11/21 02:06 Sodium Chloride 0.9% IV 100 mls/hr .Q10H DINA Administration Insulin Human Lisp ro 0 unit 07/10/21 18:00 07/10/21 20:49 Insulin Lispro 1 00 Unit/1 Ml SUBCUT Not Given WM&BEDTIME DINA Protocol PFSH Anesthesia PFSH: Medical History Emphysema/COPD GERD (gastroesophageal reflux disease) History of GI bleed Hx pulmonary embolism Hyperlipemia, mixed Hypothyroidism -Noted elevated TSH, normal free T4 -Continue levothyroxine Peripheral arterial disease Protracted bacterial bronchitis Type 2 diabetes mellitus with complication, without long-term current use of insulin -A1c at goal-6.2 -Accuchecks, ISS, hypoglycemia precautions -consistent carb diet as tolerated Urinary retention Surgical History H/O cataract extraction RIGHT 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 Family History Mother Diabetes Hypertension Other CAD (coronary artery disease) Myocardial infarction Social History Smoking and tobacco status: former smoker Second hand smoke exposure: No Smoking risk assessment/counseling performed?: No Alcohol intake: never Desire information about alcohol rehabilitation?: No Counseling given: No Desire information about substance/drug rehabilitation?: No Counseling given: No Lives independently: Yes Household members: spouse Marital status: Current occupational status: retired History of recent travel: No Current gender identity: Male Data Anesthesia CBC & Chem 7: 07/11/21 02:13 07/11/21 02:13 Other Labs: Laboratory Results - last 48 hr 07/10/21 07/10/21 07/10/21 11:45 11:45 11:55 WBC 11.3 H RBC 5.14 Hgb 15.4 Hct 45.4 MCV 88.3 MCH 30.0 MCHC 33.9 RDW 13.0 Plt Count 276 MPV 9.1 Neut % (Auto) 83.9 Lymph % (Auto) 6.5 [place] % (Auto) 5.8 Eos % (Auto) 3.0 Baso % (Auto) 0.4 Neut # (Auto) 9.47 H Lymph # (Auto) 0.7 L [place] # (Auto) 0.7 Eos # (Auto) 0.3 Baso # (Auto) 0.1 Nucleated RBC % (auto) 0 Nucleated RBCs # 0.0 PT INR APTT Sodium 129 L Potassium 4.0 Chloride 93 L Carbon Dioxide 23 Anion Gap 17.0 BUN 9 Creatinine 0.7 GFR Calculation Not Reportable Glucose 166 H POC Glucose Calculated Osmolality 270 L Calcium 9.1 Total Bilirubin 0.8 AST 13 ALT 9 Alkaline Phosphatase 94 Creatine Kinase 63 Total Protein 7.2 Albumin 4.1 Globulin 3.1 Urine Color Yellow Urine Appearance Cloudy Urine pH 5 Ur Specific [place] 1.015 Urine Protein Neg Urine Glucose (UA) Trace H Urine Ketones Negative Urine Blood 2+ H Urine Nitrate Negative Urine Bilirubin Neg Urine Urobilinogen 4 H Ur Leukocyte Esterase 2+ H Urine RBC 0-4 H Urine WBC 55-80 H Ur Squamous Epith Cells 0-4 H Amorphous Sediment Not Reportable Urine Bacteria 4+ H 07/10/21 07/10/21 07/10/21 12:44 16:52 20:46 WBC RBC Hgb Hct MCV MCH MCHC RDW Plt Count MPV Neut % (Auto) Lymph % (Auto) [place] % (Auto) Eos % (Auto) Baso % (Auto) Neut # (Auto) Lymph # (Auto) [place] # (Auto) Eos # (Auto) Baso # (Auto) Nucleated RBC % (auto) Nucleated RBCs # PT 13.60 INR 1.01 APTT 29.8 Sodium Potassium Chloride Carbon Dioxide Anion Gap BUN Creatinine GFR Calculation Glucose POC Glucose 121 H 135 H Calculated Osmolality Calcium Total Bilirubin AST ALT Alkaline Phosphatase Creatine Kinase Total Protein Albumin Globulin Urine Color Urine Appearance Urine pH Ur Specific [place] Urine Protein Urine Glucose (UA) Urine Ketones Urine Blood Urine Nitrate Urine Bilirubin Urine Urobilinogen Ur Leukocyte Esterase Urine RBC Urine WBC Ur Squamous Epith Cells Amorphous Sediment Urine Bacteria 07/11/21 07/11/21 07/11/21 02:13 02:13 06:23 WBC 9.1 RBC 4.63 Hgb 13.5 Hct 41.0 L MCV 88.6 MCH 29.2 MCHC 32.9 RDW 13.0 Plt Count 224 MPV 9.1 Neut % (Auto) 78.7 Lymph % (Auto) 8.4 [place] % (Auto) 6.3 Eos % (Auto) 5.5 Baso % (Auto) 0.7 Neut # (Auto) 7.17 Lymph # (Auto) 0.8 [place] # (Auto) 0.6 Eos # (Auto) 0.5 Baso # (Auto) 0.1 Nucleated RBC % (auto) 0 Nucleated RBCs # 0.0 PT INR APTT Sodium 132 L Potassium 4.1 Chloride 100 Carbon Dioxide 21 L Anion Gap 15.1 BUN 10 Creatinine 0.7 GFR Calculation Not Reportable Glucose 113 POC Glucose 121 H Calculated Osmolality 274 L Calcium 8.3 L Total Bilirubin 0.6 AST 9 ALT 6 Alkaline Phosphatase 69 Creatine Kinase Total Protein 5.8 L Albumin 3.2 L Globulin 2.6 Urine Color Urine Appearance Urine pH Ur Specific [place] Urine Protein Urine Glucose (UA) Urine Ketones Urine Blood Urine Nitrate Urine Bilirubin Urine Urobilinogen Ur Leukocyte Esterase Urine RBC Urine WBC Ur Squamous Epith Cells Amorphous Sediment Urine Bacteria Cardiac Studies: No Data to Display
[2021-07-11] MEDS: acetaminophen 1,000 MG/100 ML PIGGYBACK 400 MG IV (07:15)
[2021-07-11] MEDS: sodium chloride 0.9% 1,000 ML 30 ML (07:16)
--- NOTE | 2021-07-11 10:00 | P.PCN_ITS ---
PACU note PACU note: VSS, Good respiratory effort, report to SCHOOL PHOTOGRAPH EDITOR Post-Anesthesia Exam: awake
--- NOTE | 2021-07-11 10:00 | PM.PACU ---
PACU note PACU note: VSS, Good respiratory effort, report to WATERWORKS SUPERVISOR Post-Anesthesia Exam: awake
--- NOTE | 2021-07-11 10:32 | PC.CHAP ---
Pastoral Care Encounter/Spiritual Assessment Type of Contact [] Declined electrode turner and finisher visit [] Patient/Family/Request visit [] Outpatient visit [] Follow-up visit [] Physician referral [] Code/Alert x] Routine visit [] Staff referral [] Actively dying [] Patient sleeping [] Family support [] [] Out of room [] Palliative care [] [] Receiving care in room [] Pre-surgical visit [] Trauma [] Long length of stay [] ICU visit [] Other: Relational/Emotional Strength [x] Patient feels connected with others/family/visitors/staff [] Distress [] Loneliness/isolation [] Abandonment Spirituality of Patient [x] Person of Daksha [x Attends Baptism of their Daksha [xx] Believes in Prayer [] Reads Bible or Yazidi materials [] There are Spiritual issues to be addressed Natural Gas Technician Interventions [x]x Prayer [] Active listening [] Non-anxious presence [] Spiritual/emotional support [] Crisis/trauma care [] Spiritual counseling [] Bereavement support [] Provided bereavement packet [] Provided Bible/devotional materials [] Provided toy/stuffed animal, coloring book to patient or family member [] Provided Communion [] Anointing/[place] [] Salvation x[] Completed spiritual assessment [] Other: Impact on Illness or Injury [] Angry [] Fearful [] Anxious [] Often cries [] Exhaustion [] Unable to work [] Unable to attend synagogue [] Unable to walk/stand [] Unable to read [] Unable to drive [] Unable to eat/drink [] Unable to sleep [] Unable to be with family [] Patient intubated [] Other: Summary Time spent with patient 15 min
[2021-07-11] MEDS: cefTRIAXone 1,000 MG in sodium chloride 0.9% (plus) 50 ML 100 MG IV (10:54)
--- NOTE | 2021-07-11 10:55 | W.PM.OPSUD ---
Surgery/Procedure H&P Update DATE OF PROCEDURE: July 11, 2021 DATE H&P PERFORMED: 07/11/21 H&P UPDATE INFORMATION: I have reviewed H&P completed within last 30 days, I have examined patient prior to procedure and No changes to prior documentation PREOP DIAGNOSIS: Hip dislocation/fracture PLANNED PROCEDURE: Operation Date: 07/11/21 08:45 Proposed Procedures p Hip Screw(Left) - Ryan Lawler DO
--- NOTE | 2021-07-11 10:56 | PM.OP ---
Operative Report Date of procedure: July 11, 2021 Pre-op Diagnosis: left femoral neck fracture Post-op diagnosis: same Procedure Done: 1. closed reduction percutaneous screw of left femoral neck Surgeon: Ryan Lawler Market Research Coordinator: Parvez Farah Market Research Coordinator: Parvez STREET was required because this patient had an [id number] amputation on the side of the fracture. As well as a below the knee amputation on the opposite side. Kriag was required because he had to hold the leg through the traction and internal rotation the entire time and while I placed the screws. No one else could have done this. Parvez also helped with positioning the patient Estimated blood loss (mL): 5 Condition: stable Disposition: PACU Procedure: 1. closed reduction percutaneous screw of left femoral neck Patient was brought to the operative suite after undergoing anesthesia was brought onto the [address] table. Parvez STREET held the leg in position. Leg was then prepped and draped in normal sterile fashion. All areas impingement were well-padded. Skin screws made over the lateral aspect of the hip and then 3 K wires were placed 3 cannulated screws were placed and these wires were placed along the borders of the cortex. And then the screws were placed felt to be in acquisition and AP lateral fluoroscopy ensured that this was in the prone position. Wounds irrigated closed with Vicryl steph. Sterile dressings applied patient transferred to the PACU in stable conditions.
[2021-07-11 10:58] LABS: Glucose Point of Care 107 mg/dL (70-110)
--- NOTE | 2021-07-11 12:32 | ANE.PACU2 ---
Inpatient post-anesthesia follow up: Airway intact: Yes Vital signs: Temperature 97.9 F Pulse Rate [Monito r] 100 Pulse Rate 66 Respiratory Rate 18 Blood Pressure [Ri ght Arm] 129/67 Blood Pressure 138/70 Pulse Oximetry 98 Oxygen Delivery Me thod [ Nasal Cannula Current Rate & Del ирина] Oxygen Delivery Me thod Nasal Cannula Oxygen Flow Rate [ Current Rate 2.5 & Delivery] Oxygen Flow Rate 4 Fraction of Inspir ed Oxygen Hydration adequate: Yes Nausea and vomiting: No Pain level: 2 Mental status: Baseline
[2021-07-11] MEDS: enoxaparin 40 mg/0.4 mL Syringe SUBCUT (13:48)
--- NOTE | 2021-07-11 14:55 | PM.PN ---
Subjective Subjective: Interval history: Patient was seen and examined this morning. S/p: closed reduction percutaneous screw of left femoral neck. Overnight T-max:101.2, denies any cough, abdominal pain nausea vomiting difficulty passing urine, headache. Lt hip Pain is well controlled his other vitals and labs have been reviewed Medications: Reviewed: Yes Vitals/I&O/Wt Last Vital Signs Temp 97.9 F 07/11/21 11:00 Pulse 66 07/11/21 11:00 Resp 18 07/11/21 11:00 BP 138/70 07/11/21 11:00 Pulse Ox 98 07/11/21 11:00 07/10/21 07/11/21 07/11/21 22:59 06:59 14:59 Intake Total 170 / 170 911.667 / 9242.165 0758 / 1235 Output Total 300 / 300 600 / 900 110 / 110 Balance -130 / -130 311.667 / 061.015 8708 / 1125 Weight last 48 hrs Weight 65.317 kg Weight 72.575 kg Physical Exam Const: COMMON NORMALS: patient oriented x3 HENMT: COMMON NORMALS: normocephalic and atraumatic HEAD & SCALP: normocephalic and atraumatic Resp: COMMON NORMALS: clear to auscultation bilaterally AUSCULTATION: clear to auscultation bilaterally Cardio: COMMON NORMALS: regular rate, regular rhythm, S1 normal heart sound present, S2 normal heart sound present, No gallops present (Cardio), No murmurs present (Cardio), No rub (Cardio) and Peripheral pulses 2+ throughout RATE: regular rate RHYTHM: regular rhythm HEART SOUNDS: S1 normal heart sound present and S2 normal heart sound present PERIPHERAL PULSES: Peripheral pulses 2+ throughout GI: COMMON NORMALS: Normal to inspection, nondistended, normoactive bowel sounds present, Soft to palpation, non-tender, No hepatosplenomegaly present and no masses AUSCULTATION: Yes normoactive bowel sounds PALPATION: Yes Soft to palpation and Yes No hepatosplenomegaly present RECTAL EXAM: Yes deferred Extremity: OTHER: Left hip tenderness present Neuro: COMMON NORMALS: patient oriented x3 Data : 07/11/21 02:13 07/11/21 02:13 Micro: Microbiology 07/11/21 10:42 Blood Culture - Preliminary Blood SPECIMEN COLLECTED 07/11/21 10:37 Blood Culture - Preliminary Blood SPECIMEN COLLECTED 07/10/21 11:55 Urine Culture - Preliminary Urine,Clean Catch Gram Negative Rods A&P Assessment and plan (1) Subcapital fracture of left hip: S/p: closed reduction percutaneous screw of left femoral neck. Appreciate orthopedic recommendations. Pain control Bowel regimen. Lovenox for anticoagulation Status: Acute (2) Fever: Follow blood culture Urine culture:GNR Lactic acid: Procalcitonin: levofloxacin 750 MG IV daily Status: Acute (3) UTI (urinary tract infection): Status: Acute (4) CAD (coronary artery disease): Continue aspirin and Plavix Status: Acute (5) Hypothyroidism: levothyroxine 50 mcg p.o. 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
[2021-07-11 17:13] LABS: Glucose Point of Care 119 mg/dL (70-110)
--- NOTE | 2021-07-11 17:53 | PC.PT ---
Patient declines physical therapy today, states he will participate in the morning
--- NOTE | 2021-07-11 17:54 | PC.PT ---
Patient declines physical therapy today, states he will participate in the morning
[2021-07-11] MEDS: atorvastatin 40 mg Tablet 20 MG PO (20:49)
[2021-07-11 22:17] LABS: Glucose Point of Care 101 mg/dL (70-110)
[2021-07-12] VITALS (8 sets, daily range): BP systolic 108–150; BP diastolic 67–76; PULSE 58–92; RESP 19–24; TEMP 36.4–36.9; O2SAT 91–97
[2021-07-12] MEDS: levofloxacin-dextrose 5 % 750 MG/150 ML PREMIX 100 MG IV (05:59)
[2021-07-12 06:18] LABS: Basophils % 0.4 %; Eosinophils # 0.5 10^3/uL (0.0-0.8); Eosinophils % 5.1 %; Hematocrit 41.1 % (42.0-52.0); Hemoglobin 13.7 g/dL (11.7-16.6); Lymphocytes # 0.8 10^3/uL (0.8-4.8); Lymphocytes % 7.7 %; Mean Corpuscular HGB Conc 33.3 g/dL (30.0-36.0); Mean Corpuscular Hemoglobin 29.8 pg (28.0-34.0); Mean Corpuscular Volume 89.3 fl (80-94); Mean Platelet Volume 9.1 fL (7.4-10.4); Monocytes # 0.7 10^3/uL (0.2-0.9); Monocytes % 7.5 %; Neutrophils # 7.73 10^3/uL (1.8-7.7); Nucleated Red Blood Cells % 0 %; Platelet Count 226 10^3/cmm (130-400); White Blood Count 9.8 10^3/uL (4.0-10.0)
[2021-07-12 06:32] LABS: Lactate (Lactic Acid level) 0.9 mmol/L (0.5-2.2)
[2021-07-12 06:33] LABS: Anion Gap 19.2 (5-19); Blood Urea Nitrogen 12 mg/dL (8-23); Calcium 8.4 mg/dL (8.5-10.5); Carbon Dioxide 19 mmol/L (22-29); Chloride 100 mmol/L (98-107); Glucose 91 mg/dL (65-115); Osmolality Calculated 277 mOsm/kg (285-295); Potassium 4.2 mmol/L (3.5-5.1); Sodium 134 mmol/L (136-145)
[2021-07-12 06:37] LABS: Procalcitonin 0.11 ng/mL (0-0.5)
[2021-07-12 06:39] LABS: Glucose Point of Care 98 mg/dL (70-110)
--- NOTE | 2021-07-12 07:02 | P.PN_ITS ---
Documented by User: YENIFER Dutta 07/12/21 07:06 Subjective Subjective: Interval history: POD 1 from Left Hip Pinning Patient is awake wondering when he can go home. He denies any shortness of breath or chest pain. Vitals/I&O/Wt Last Vital Signs Temp 97.8 F 07/12/21 04:00 Pulse 58 L 07/12/21 04:00 Resp 20 H 07/12/21 04:00 BP 150/76 07/12/21 04:00 Pulse Ox 91 07/12/21 04:00 07/11/21 07/12/21 07/12/21 22:59 06:59 14:59 Intake Total 60 / 1295 180 / 1475 Output Total 600 / 710 450 / 1160 Balance -540 / 585 -270 / 315 Weight last 48 hrs Weight 144 lb Weight 160 lb Physical Exam Narrative: EXAM NARRATIVE: Dressings over the left hip are clean and dry. The stump is warm with good sensation to light touch over the left [id number] amputation site. He has no pain in the right BKA limb. Data : 07/12/21 05:49 07/12/21 05:49 Micro: Microbiology 07/11/21 10:42 Blood Culture - Preliminary Blood SPECIMEN COLLECTED 07/11/21 10:37 Blood Culture - Preliminary Blood SPECIMEN COLLECTED 07/10/21 11:55 Urine Culture - Preliminary Urine,Clean Catch Gram Negative Rods A&P Assessment and plan (1) Subcapital fracture of left hip: With his prosthetic device on the right and with assistance of a walker he can begin mobilizing. Discussed with him to not use a prosthetic limb on the left until we evaluate him in the office. We will see him back in 1 week's time for wound check we will remove the steph in 12 to 14 days. Encouraged him to keep it clean and dry. Okay from an orthopedic standpoint for discharge when medically stable. 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
[2021-07-12] MEDS: clopidogrel 75 mg Tablet PO (08:14)
[2021-07-12] MEDS: levothyroxine 50 mcg Tablet PO (08:14)
[2021-07-12] MEDS: acetaminophen 325 mg Tablet 650 MG PO (08:14)
[2021-07-12] MEDS: aspirin 81 mg Chew Tablet PO (08:14)
[2021-07-12] MEDS: lisinopril 20 mg Tablet 40 MG PO (08:14)
[2021-07-12 12:13] LABS: Glucose Point of Care 172 mg/dL (70-110)
[2021-07-12] MEDS: insulin lispro 100 unit/1 mL SUBCUT (13:10)
[2021-07-12] MEDS: enoxaparin 40 mg/0.4 mL Syringe SUBCUT (13:11)
[2021-07-12 17:05] LABS: Glucose Point of Care 89 mg/dL (70-110)
--- NOTE | 2021-07-12 19:55 | P.PN_ITS ---
Subjective Subjective: Interval history: Patient was seen and examined this morning. No acute events overnight.Has remained afebrile.Other vitals and labs have been reviewed. Medications: Reviewed: Yes Vitals/I&O/Wt Last Vital Signs Temp 98.4 F 07/12/21 15:38 Pulse 80 07/12/21 16:03 Resp 20 H 07/12/21 15:38 BP 136/72 07/12/21 15:38 Pulse Ox 96 07/12/21 16:03 07/12/21 07/12/21 07/12/21 06:59 14:59 22:59 Intake Total 180 / 1475 1210 / 1210 120 / 1330 Output Total 450 / 1160 400 / 400 Balance -270 / 315 810 / 810 120 / 930 Physical Exam Const: COMMON NORMALS: patient oriented x3 HENMT: COMMON NORMALS: normocephalic and atraumatic HEAD & SCALP: normocephalic and atraumatic Resp: COMMON NORMALS: clear to auscultation bilaterally AUSCULTATION: clear to auscultation bilaterally Cardio: COMMON NORMALS: regular rate, regular rhythm, S1 normal heart sound present, S2 normal heart sound present, No gallops present (Cardio), No murmurs present (Cardio), No rub (Cardio) and Peripheral pulses 2+ throughout RATE: regular rate RHYTHM: regular rhythm HEART SOUNDS: S1 normal heart sound present and S2 normal heart sound present PERIPHERAL PULSES: Peripheral pulses 2+ throughout GI: COMMON NORMALS: Normal to inspection, nondistended, normoactive bowel sounds present, Soft to palpation, non-tender, No hepatosplenomegaly present and no masses AUSCULTATION: Yes normoactive bowel sounds PALPATION: Yes Soft t o palpation and Yes No hepatosplenomegaly present RECTAL EXAM: Yes deferred Extremity: OTHER: Left hip tenderness present Neuro: COMMON NORMALS: patient oriented x3 Data : 07/12/21 05:49 07/12/21 05:49 Micro: Microbiology 07/10/21 11:55 Urine Culture - Final Urine,Clean Catch Pseudomonas aeruginosa 07/11/21 10:42 Blood Culture - Preliminary Blood NEGATIVE TO DATE 07/11/21 10:37 Blood Culture - Preliminary Blood NEGATIVE TO DATE A&P Assessment and plan (1) Subcapital fracture of left hip: S/p: closed reduction percutaneous screw of left femoral neck. Appreciate orthopedic recommendations. Pain control Bowel regimen. Lovenox for anticoagulation Status: Acute (2) Fever: Blood culture:NTD Urine culture:GNR: Pseudomas.A : Lactic acid:0.9 Procalcitonin:0.11 levofloxacin 750 MG IV daily for additional 3 days. Status: Acute (3) UTI (urinary tract infection): Urine culture:GNR: Pseudomas.A : levofloxacin 750 MG IV daily. Status: Acute (4) CAD (coronary artery disease): Continue aspirin and Plavix Status: Acute (5) Hypothyroidism: levothyroxine 50 mcg p.o. 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
[2021-07-12] MEDS: atorvastatin 40 mg Tablet 20 MG PO (20:23)
[2021-07-12 21:29] LABS: Glucose Point of Care 110 mg/dL (70-110)
[2021-07-13] VITALS: BP 144/70; PULSE 48; RESP 19; TEMP 36.7; O2SAT 92
[2021-07-13 02:46] VITALS: PULSE 72; O2SAT 92
[2021-07-13 04:00] VITALS: BP 131/74; PULSE 76; RESP 19; TEMP 36.6; O2SAT 94
[2021-07-13] MEDS: levofloxacin-dextrose 5 % 750 MG/150 ML PREMIX 100 MG IV (06:15)
[2021-07-13 06:56] LABS: Basophils # 0.1 10^3/uL (0.0-0.1); Basophils % 0.7 %; Eosinophils # 0.6 10^3/uL (0.0-0.8); Eosinophils % 7.9 %; Hematocrit 39.8 % (42.0-52.0); Hemoglobin 13.2 g/dL (11.7-16.6); Lymphocytes # 0.9 10^3/uL (0.8-4.8); Lymphocytes % 11.3 %; Mean Corpuscular HGB Conc 33.2 g/dL (30.0-36.0); Mean Corpuscular Hemoglobin 29.1 pg (28.0-34.0); Mean Corpuscular Volume 87.9 fl (80-94); Mean Platelet Volume 9.4 fL (7.4-10.4); Monocytes # 0.9 10^3/uL (0.2-0.9); Monocytes % 11.7 %; Neutrophils # 5.22 10^3/uL (1.8-7.7); Neutrophils % 67.9 %; Nucleated Red Blood Cells % 0 %; Platelet Count 249 10^3/cmm (130-400); Red Blood Count 4.53 10^6/uL (4.1-5.3); White Blood Count 7.7 10^3/uL (4.0-10.0)
[2021-07-13 07:03] LABS: Glucose Point of Care 97 mg/dL (70-110)
[2021-07-13 07:13] LABS: Blood Urea Nitrogen 15 mg/dL (8-23); Calcium 8.4 mg/dL (8.5-10.5); Carbon Dioxide 22 mmol/L (22-29); Chloride 99 mmol/L (98-107); Glucose 96 mg/dL (65-115); Osmolality Calculated 277 mOsm/kg (285-295); Sodium 133 mmol/L (136-145)
--- NOTE | 2021-07-13 07:22 | P.PN_ITS ---
Subjective Subjective: Interval history: POD 2 Patient doing well resting comfortably. He is inquiring about being discharged home. He was up with physical therapy yesterday with no problems. Vitals/I&O/Wt Last Vital Signs Temp 97.9 F 07/13/21 04:00 Pulse 76 07/13/21 04:00 Resp 19 H 07/13/21 04:00 BP 131/74 07/13/21 04:00 Pulse Ox 94 07/13/21 04:00 07/12/21 07/13/21 07/13/21 22:59 06:59 14:59 Intake Total 120 / 1330 1090 / 2420 Output Total 1100 / 1500 Balance 120 / 930 -0 Physical Exam Narrative: EXAM NARRATIVE: Dressing is clean and dry in the left lower extremity stump is warm to the touch. He is able to lift the the stump. Data : 07/13/21 06:05 07/13/21 06:05 Micro: Microbiology 07/10/21 11:55 Urine Culture - Final Urine,Clean Catch Pseudomonas aeruginosa 07/11/21 10:42 Blood Culture - Preliminary Blood NEGATIVE TO DATE 07/11/21 10:37 Blood Culture - Preliminary Blood NEGATIVE TO DATE A&P Assessment and plan (1) Fracture of femoral neck, left: Okay from orthopedic standpoint to discharge home when medically stable. Remain nonweightbearing to the left lower extremity no use of prosthetic devices. Have his dressing change prior to discharge. We will see him back in 2 weeks time for staple removal. We will continue with Plavix for anticoagulant. 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
--- NOTE | 2021-07-13 07:23 | PC.SOCIAL ---
IMM Update Pg. 2 of IMM updated and reviewed with patient, who verbalized understanding. Copy provided.
[2021-07-13 08:00] VITALS: BP 117/78; PULSE 81; RESP 16; TEMP 36.7; O2SAT 93
--- NOTE | 2021-07-13 08:16 | PM.DCS ---
Discharge Providers Date of Admission: 07/10/21 18:19 Date of Discharge: July 13, 2021 Attending Provider at Admission: Asa Dominguez MD Attending Provider at Discharge: Asa Dominguez MD Primary Care Provider: ANNE MARIE Beverly Diagnoses at Discharge Discharge Diagnosis (1) Fracture of femoral neck, left: Status: Acute (2) Fever: Status: Resolved (3) UTI (urinary tract infection): Status: Acute Reason for Visit Reason for Visit: FALL YESTERDAY, L HIP PAIN Hospital Course Hospital Course Mauro Espino is a 81 year old male with past medical history of diabetes, coronary artery disease s/p CABG, s/p recent intervention to RCA with 2 RDAHA 02/2021 ( patent POZO to LAD and SVG to OM however SVG to RCA was occluded. [place] prox RCA had severe CAD.S/P RADHA x 2 post orbital arthrectomy.) Peripheral arterial disease s/p bilateral lower extremity amputations. Owiug-[id number]-cpdz amputation of the left low the knee amputation on the right patient has a prosthesis for the right leg, hypothyroidism, came in with chief complaint of after experiencing a fall at home while using his walker and trying to go up a step.Post fall he denied any loss of consciousness, any injury to head, he started experiencing left hip pain. Came to the ER for further work-up. Upon arrival in the ER pertinent imaging studies: XR hip LT 2-3V wo/w pel:Subcapital fracture of the left hip with minimal coxa vera deformity. X-ray chest: No acute changes. EKG: Sinus rhythm with occasional PVCs. He was admitted for the management of Subcapital fracture of left hip : S/p: closed reduction percutaneous screw of left femoral neck. During this hospital stay he was also managed for UTI: Urine culture grew Pseudomonas.A, sensitive to levofloxacin, being discharged on p.o. levofloxacin for 5 additional days, he also had fever during this hospital stay, blood cultures were negative, lactic acid and pro-Cristopher was normal, no clinical suspicion for sepsis. Patient was continued to be managed for his other comorbid conditions for his history of coronary artery status post PCI: He was continued on aspirin and Plavix, for his hypothyroidism was continued on levothyroxine.Patient responded well to the above medical management and is being discharged in stable condition to home. Patient will continue to follow cardiology as well as orthopedic as an outpatient. Physical Exam Const: COMMON NORMALS: patient oriented x3 HENMT: COMMON NORMALS: normocephalic and atraumatic HEAD & SCALP: normocephalic and atraumatic Resp: COMMON NORMALS: clear to auscultation bilaterally AUSCULTATION: clear to auscultation bilaterally Cardio: COMMON NORMALS: regular rate, regular rhythm, S1 normal heart sound present, S2 normal heart sound present, No gallops present (Cardio), No murmurs present (Cardio), No rub (Cardio) and Peripheral pulses 2+ throughout RATE: regular rate RHYTHM: regular rhythm HEART SOUNDS: S1 normal heart sound present and S2 normal heart sound present PERIPHERAL PULSES: Peripheral pulses 2+ throughout GI: COMMON NORMALS: Normal to inspection, nondistended, normoactive bowel sounds present, Soft to palpation, non-tender, No hepatosplenomegaly present and no masses AUSCULTATION: Yes normoactive bowel sounds PALPATION: Yes Soft to palpation and Yes No hepatosplenomegaly present RECTAL EXAM: Yes deferred Extremity: OTHER: lt hip dressing dry and clean Neuro: COMMON NORMALS: patient oriented x3 Discharge Data Data Completed and Pending: Completed Studies During Hospitalization Category Date Time Status XR chest 1V carolee ble [id number] Stat Exams 07/10/21 12:29 Completed XR hip LT 2-3V wo /w pel* [id number] Rout ine Exams 07/11/21 Completed XR hip LT 2-3V wo /w pel* [id number] Stat Exams 07/10/21 11:41 Completed Pending at discharge Category Date Time Status C-arm Fluoroscopy [id number] Routine Exams 07/11/21 08:42 Taken Blood Culture Rou el Lab 07/11/21 10:42 Results Labs from last 24 hours 07/13/21 07/13/21 07/13/21 06:31 06:05 06:05 WBC 7.7 RBC 4.53 Hgb 13.2 Hct 39.8 L MCV 87.9 MCH 29.1 MCHC 33.2 RDW 13.0 Plt Count 249 MPV 9.4 Neut % (Auto) 67.9 Lymph % (Auto) 11.3 Meagher % (Auto) 11.7 Eos % (Auto) 7.9 Baso % (Auto) 0.7 Neut # (Auto) 5.22 Lymph # (Auto) 0.9 Meagher # (Auto) 0.9 Eos # (Auto) 0.6 Baso # (Auto) 0.1 Nucleated RBC % (a uto) 0 Nucleated RBCs # 0.0 Sodium 133 L Potassium 4.0 Chloride 99 Carbon Dioxide 22 Anion Gap 16.0 BUN 15 Creatinine 0.6 L GFR Calculation Not Reportable Glucose 96 POC Glucose 97 Calculated Osmolal ity 277 L Calcium 8.4 L 07/12/21 07/12/21 07/12/21 20:19 17:01 11:52 WBC RBC Hgb Hct MCV MCH MCHC RDW Plt Count MPV Neut % (Auto) Lymph % (Auto) Meagher % (Auto) Eos % (Auto) Baso % (Auto) Neut # (Auto) Lymph # (Auto) Meagher # (Auto) Eos # (Auto) Baso # (Auto) Nucleated RBC % (a uto) Nucleated RBCs # Sodium Potassium Chloride Carbon Dioxide Anion Gap BUN Creatinine GFR Calculation Glucose POC Glucose 110 89 172 H Calculated Osmolal ity Calcium Vitals: Last Vital Signs Temp 97.9 F 07/13/21 04:00 Pulse 76 07/13/21 04:00 Resp 19 H 07/13/21 04:00 BP 131/74 07/13/21 04:00 Pulse Ox 94 07/13/21 04:00 Discharge Plan Discharge Patient Disposition: Home Condition: Stable Prescriptions: New levofloxacin 500 mg tablet 500 mg PO DAILY 5 Days Qty: 5 RF: 0 Percocet 5-325 mg tablet 1 tab PO Q8H PRN (Reason: pain) 7 Days Qty: 14 RF: 0 Continued aspirin 81 mg tablet,delayed release (DR/EC) 81 mg PO DAILY@0800 RF: 0 docusate sodium [Colace] 100 mg capsule 100 mg PO BID@0800,1999 RF: 0 alendronate 70 mg tablet 70 mg PO Q7D Qty: 12 RF: 1 levothyroxine 50 mcg capsule 50 mcg PO DAILY Qty: 90 RF: 0 ramipril 10 mg capsule 10 mg PO DAILY@0800 Qty: 30 RF: 6 simvastatin 40 mg tablet 40 mg PO DAILY@1999 Qty: 90 RF: 0 clopidogrel [Plavix] 75 mg tablet 75 mg PO DAILY Qty: 90 RF: 3 tamsulosin 0.4 mg capsule 0.4 mg PO DAILY RF: 0 gabapentin 300 mg capsule 300 mg PO TID RF: 0 omeprazole 20 mg capsule,delayed release(DR/EC) 20 mg PO BID RF: 0 Discharge Orders: Discharge Order (Routine); Ordered 07/13/21 Ordered By: Asa Dominguez Other Ambulatory Orders: DME: Commode (Order) Location: None Selected Ordered By: Asa Dominguez DME: Wheelchair (Order) Location: None Selected Ordered By: Asa Dominguez Referrals: [facility] [place] [Outside] [facility] [place] Home Care ([facility]) [Outside] Dulce Maria Alonzo FNP [Primary Care Provider] - (Please call Dulce Maria Alonzo's offie on Wednesday and schedule an appointment to be seen within the next week if possible. ) Discharge Diet: Regular Discharge Activity: Increase activity as tolerated Patient Instructions: Oxycodone/Acetaminophen (By mouth), Levofloxacin (By mouth), Urinary Tract Infection in Men (DC), COPD Stoplight, Opioid Safety Activity Restrictions/Additional Instructions: You are being discharged from the hospital today during which time you have been under the care of Dr Lawler. You had a left femoral neck fracture. You were treated for this injury with CRPP left femoral neck. You may resume you normal diet (including any special diets as directed by your primary doctor) as well as your home medications. You should follow up with you primary doctor if you have any questions regarding medication you took prior to your stay in the hospital. You may take your pain medication as prescribed. After the first few days, take your pain medication as needed. Do not drive or drink alcohol while taking your pain medication. Your injury may increase your risk of developing a blood clot,or DVT, in your arm or leg. This could potentially dislodge and travel to your lungs and become a life threatening condition called apulmonary embolus,or PE. You have been prescribed (already on Plavix) to be taken to prevent this. Frequent movement of the legs will also help prevent this from occurring. If you develop any new or worsening cough, chestpain, bloody sputum or shortness of breath, call 911 or go to the EmergencyRoom. Always keep your surgical incision/dressing clean and dry. If you experience increasing pain at your incision site, redness, swelling, increasing discharge, foul odors, or fevers (greater than 100.4), night sweats or chills you should call the office at the above number. If you feel this is an emergency you should be evaluated in the Emergency Department of a nearby hospital. Orthopedic Patient Instructions Summary: Weight Bearing: NWB LLE Activity: as tolerated. Diet: regular. Wound Care: Keep dressing clean and dry. change as needed Anticoagulation: plavix Pain Medication: Take only as needed. Ice, rest and elevation will be of great benefit. Please plan to follow-up wlth Dr Lawler in 2 weeks. You will need to call the clinic [phone] to schedule this visit. Thank you far allowing me to participate in your care. Do not hesitate to call the office with any questions or concerns. Discharge Attestations Time Spent in Discharge Care*: less than 30 min Specific Discharge Activities: educating patient, educating and/or supporting family/caregiver, discussing with pcp/other providers, discussing with nurse case manager/social workers/dc planners, documenting/other paperwork and evaluating patient/reviewing data Status at Discharge: Cognitive status at discharge: cognitively intact, Behavioral status at discharge: cooperative and independent in ADL's, Quality Metrics Clinical Quality Measures During this hospital stay, did patient experience: None Coding Level of Care Code Acute g DC note Diagnoses Fracture of femoral neck, left S72.002A Fever R50.9 UTI (urinary tract infection) N39.0
[2021-07-13] MEDS: clopidogrel 75 mg Tablet PO (08:24)
[2021-07-13] MEDS: aspirin 81 mg Chew Tablet PO (08:24)
[2021-07-13] MEDS: lisinopril 20 mg Tablet 40 MG PO (08:24)
[2021-07-13] MEDS: levothyroxine 50 mcg Tablet PO (08:24)
[2021-07-13 10:39] VITALS: O2SAT 90; O2SAT 93
[2021-07-13 12:00] VITALS: BP 130/70; PULSE 77; RESP 17; TEMP 36.3; O2SAT 92
[2021-07-13 12:53] LABS: Glucose Point of Care 89 mg/dL (70-110)
--- NOTE | 2021-07-14 14:16 | PC.RESP ---
PULMONARY REHAB INFORMATION SENT TO PATIENT.
--- NOTE | 2021-07-15 10:46 | PC.SOCIAL ---
spoke with CARYN MITTAL, due to patient having blood in his sputum. They had planned to see patient tomorrow but will make a visit today.
== END 2021-07-13 15:00 | disposition home health service (06) | DRG 481 ==
LOC: ER 14:06 → MEDSURG 07-11 06:23
PROVIDERS: Orthopaedic Surgery; Admitting Provider Internal Medicine; Emergency Provider Family Medicine; PCP Nurse Practitioner Family; Visit Provider Internal Medicine
PROC: 0QS734Z Reposition Left Upper Femur with Internal Fixation Device, Percutaneous Approach (ICD-10-PCS; CPT 27236; principal; 2021-07-11 08:35)
DX: S72.012A Unspecified intracapsular fracture of left femur, initial encounter for closed fracture (principal); N39.0 Urinary tract infection, site not specified; W01.0XXA Fall on same level from slipping, tripping and stumbling without subsequent striking against object, initial encounter; Z89.612 Acquired absence of left leg above knee; Z89.511 Acquired absence of right leg below knee; J43.9 Emphysema, unspecified; I25.10 Atherosclerotic heart disease of native coronary artery without angina pectoris; Z95.1 Presence of aortocoronary bypass graft; Z95.5 Presence of coronary angioplasty implant and graft; K21.9 Gastro-esophageal reflux disease without esophagitis; Z86.711 Personal history of pulmonary embolism; E78.2 Mixed hyperlipidemia; E03.9 Hypothyroidism, unspecified; E11.51 Type 2 diabetes mellitus with diabetic peripheral angiopathy without gangrene; Z87.891 Personal history of nicotine dependence; B96.5 Pseudomonas (aeruginosa) (mallei) (pseudomallei) as the cause of diseases classified elsewhere; Z79.02 Long term (current) use of antithrombotics/antiplatelets; Z79.82 Long term (current) use of aspirin
CPT/HCPCS: 36415; 36416; 71045; 73502; 76000; 80048; 80053; 81001; 82550; 82962; 83605; 84145; 85025; 85610; 85730; 87040; 87077; 87086; 87186; 93005; 96365; 96372; 97110; 97116; 97161; 97165; 97530; 97535; 99285; C1713; J0690; J0696; J1650; J1815; J1956; J2704; J3010; J7030

== ENCOUNTER → 2021-08-26 09:35 | Outpatient (BNVA) | payer MEDICARE, MEDICAID, SELFPAY | PROVIDERS: PCP Nurse Practitioner Family; Visit Provider Orthopaedic Surgery | DX: Z48.89 Encounter for other specified surgical aftercare (principal); S72.002A Fracture of unspecified part of neck of left femur, initial encounter for closed fracture; X58.XXXA Exposure to other specified factors, initial encounter | CPT/HCPCS: 73502 ==

== ENCOUNTER → 2021-09-19 09:49 | Outpatient (BNVA) | payer MEDICARE, MEDICAID, SELFPAY | PROVIDERS: PCP Nurse Practitioner Family; Visit Provider Nurse Practitioner Family | DX: E11.9 Type 2 diabetes mellitus without complications (principal); I10 Essential (primary) hypertension; T87.89 Other complications of amputation stump; L89.899 Pressure ulcer of other site, unspecified stage | CPT/HCPCS: 80053; 83036 ==

== ENCOUNTER → 2021-10-07 09:22 | Outpatient (BNVA) | payer MEDICARE, MEDICAID, SELFPAY | PROVIDERS: PCP Nurse Practitioner Family; Visit Provider Orthopaedic Surgery | DX: Z48.89 Encounter for other specified surgical aftercare (principal) | CPT/HCPCS: 73502 ==

== ENCOUNTER 2021-10-10 11:11 | Emergency (ER) | payer MEDICARE, MEDICAID, SELFPAY ==
--- NOTE | 2021-10-10 11:14 | XR_ITS ---
WS: [id number] PORTABLE CHEST HISTORY: cough COMPARISON: 07/10/2021 Status post median sternotomy and CABG. Moderate pulmonary hyperinflation. No focal mass or nodule. No pneumonia. No pleural effusion or pneu mothorax. Cardiac size: Normal. Mediastinum/Aorta: Moderate calcification within the thoracic aorta. No osseous abnormality seen. XR/XR chest 1V portable [id number] IMPRESSION: 1. Chronic emphysema. No pneumonia. 2. Prior CABG.
[2021-10-10 11:40] VITALS: BP 137/73; PULSE 101; RESP 18; TEMP 36.8; O2SAT 94
--- NOTE | 2021-10-10 12:17 | PC.PHAR ---
PTS PAT VERIFIED PTS MEDICATIONS
[2021-10-10 12:22] LABS: Basophils # 0.1 10^3/uL (0.0-0.1); Basophils % 0.7 %; Eosinophils # 0.1 10^3/uL (0.0-0.8); Eosinophils % 0.7 %; Hematocrit 41.6 % (42.0-52.0); Hemoglobin 13.8 g/dL (11.7-16.6); Lymphocytes # 0.4 10^3/uL (0.8-4.8); Lymphocytes % 5.5 %; Mean Corpuscular HGB Conc 33.2 g/dL (30.0-36.0); Mean Corpuscular Hemoglobin 29.7 pg (28.0-34.0); Mean Corpuscular Volume 89.7 fl (80-94); Mean Platelet Volume 9.1 fL (7.4-10.4); Monocytes # 0.8 10^3/uL (0.2-0.9); Monocytes % 10.4 %; Neutrophils # 6.09 10^3/uL (1.8-7.7); Neutrophils % 82.4 %; Nucleated Red Blood Cells % 0 %; Platelet Count 214 10^3/cmm (130-400); Red Blood Count 4.64 10^6/uL (4.1-5.3); Red Cell Distribution Width 13.8 % (12.1-15.1); White Blood Count 7.4 10^3/uL (4.0-10.0)
--- NOTE | 2021-10-10 12:27 | W.ED.COVID ---
HPI - COVID General: Chief Complaint: COVID symptoms Stated Complaint: Fevor, weakness, coughing, aching Time Seen by Provider: 10/10/21 11:50 Triage information: Has fever, cough or shortness of breath. Exposure to COVID + person last 14 days History of Present Illness: 73-year-old male presents emergency room with complaints of low-grade fever cough congestion. Generally feeling weak. He denies any chest pain. No vomiting or diarrhea. Patient did previously tested positive for Covid in August 2020 he has not been vaccinated. No abdominal discomfort. Patient does states a little worsening of his phantom pain from his left [id number] amputation. He said bilateral lower extremity amputations due to peripheral artery disease. He has not been vaccinated for COVID. MD complaint: known COVID positive COVID 19 common symptoms: positive fever(s), chills, cough, non-productive cough, dyspnea, fatigue and body aches Onset (ago): day(s) Severity: mild Pertinent comorbid conditions: COPD/respiratory disease and other (Peripheral artery disease) COVID Results: SARS-CoV-2 RNA (RT-PCR) Detected (NOT DETECTED) A 10/10/21 12:10 10/10/21 Nasal/Oral Coronavirus 2019 PCR Detected H 08/31/20 12:54 08/31/20 Review of Systems Const: Reports: fever(s), chills, body aches and fatigue Resp: Reports: dyspnea and non-productive cough [facility] ED PFSH: Medical History Above knee amputation of left lower extremity CAD (coronary artery disease) COPD (chronic obstructive pulmonary disease) Cystitis Diabetes Emphysema/COPD Fever Fracture of femoral neck, left GERD (gastroesophageal reflux disease) History of GI bleed Hx pulmonary embolism Hyperlipemia, mixed Hypothyroidism -Noted elevated TSH, normal free T4 -Continue levothyroxine Peripheral arterial disease Protracted bacterial bronchitis PVD (peripheral vascular disease) Subcapital fracture of left hip Type 2 diabetes mellitus with complication, without long-term current use of insulin -A1c at goal-6.2 -Accuchecks, ISS, hypoglycemia precautions -consistent carb diet as tolerated Urinary retention UTI (urinary tract infection) Surgical History H/O cataract extraction RIGHT History of below-knee amputation of right lower extremity History 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 Family History Mother Diabetes Hypertension Other CAD (coronary artery disease) Myocardial infarction Social History Smoking and tobacco status: former smoker Second hand smoke exposure: No Smoking risk assessment/counseling performed?: No Alcohol intake: never Desire information about alcohol rehabilitation?: No Counseling given: No Desire information about substance/drug rehabilitation?: No Counseling given: No Lives independently: Yes Household members: spouse Marital status: Current occupational status: retired History of recent travel: No Current gender identity: Male Physical Exam Const: COMMON NORMALS: no acute distress GENERAL APPEARANCE: cooperative and comfortable ORIENTATION/CONSCIOUSNESS: Yes awake, Yes oriented to person, Yes oriented to place and Yes oriented to time HENMT: COMMON NORMALS: normocephalic, atraumatic and hearing grossly normal bilaterally HEAD & SCALP: normocephalic and atraumatic Neck/C-Spine: COMMON NORMALS: no JVD Resp: AUSCULTATION: crackles and wheezes Cardio: COMMON NORMALS: no JVD, regular rate, regular rhythm and No murmurs present (Cardio) RATE: regular rate RHYTHM: regular rhythm GI: COMMON NORMALS: Soft to palpation and No hepatosplenomegaly present AUSCULTATION: Yes normoactive bowel sounds PALPATION: Yes Soft to palpation, No Tenderness to palpation present (GI), No Guarding due to palpation present (GI) and Yes No hepatosplenomegaly present Extremity: COMMON NORMALS: normal to inspection, capillary refill normal, no clubbing, cyanosis or edema, no calf tenderness and no pedal edema Neuro: SENSORIUM/ORIENTATION: Yes oriented to person, Yes oriented to place and Yes oriented to time Skin: COMMON NORMALS: no rashes or lesions noted GENERAL SKIN EXAM: no rashes or lesions noted Course Vital Signs: Vital signs: Vital Signs Temperature 98.3 F 10/10/21 11:40 Pulse Rate 88 10/10/21 15:53 Respiratory Rate 19 H 10/10/21 15:53 Blood Pressure 168/86 10/10/21 15:53 Pulse Oximetry 94 10/10/21 15:53 MDM - COVID Medical Decision Making Clinically highly suspicious for COVID. Maintaining oxygen sats on room air will discharge home she has any worsening or change symptoms return monitor home oxygen with pulse oximeter. Depending on available resources patient may be a candidate for monoclonal antibodies. Medical Records I reviewed the patient's medical records. Lab Data I reviewed the patient's lab results. : 10/10/21 12:15 10/10/21 12:15 Radiology Impressions Chest X-Ray 10/10/21 11:14 IMPRESSION: 1. Chronic emphysema. No pneumonia. 2. Prior CABG. Laboratory Results WBC 7.4 10^3/uL (4.0-10.0) 10/10/21 12:15 RBC 4.64 10^6/uL (4.1-5.3) 10/10/21 12:15 Hgb 13.8 g/dL (11.7-16.6) 10/10/21 12:15 Hct 41.6 % (42.0-52.0) L 10/10/21 12:15 MCV 89.7 fl (80-94) 10/10/21 12:15 MCH 29.7 pg (28.0-34.0) 10/10/21 12:15 MCHC 33.2 g/dL (30.0-36.0) 10/10/21 12:15 RDW 13.8 % (12.1-15.1) 10/10/21 12:15 Plt Count 214 10^3/cmm (130-400) 10/10/21 12:15 MPV 9.1 fL (7.4-10.4) 10/10/21 12:15 Neut % (Auto) 82.4 % 10/10/21 12:15 Lymph % (Auto) 5.5 % 10/10/21 12:15 [place] % (Auto) 10.4 % 10/10/21 12:15 Eos % (Auto) 0.7 % 10/10/21 12:15 Baso % (Auto) 0.7 % 10/10/21 12:15 Neut # (Auto) 6.09 10^3/uL (1.8-7.7) 10/10/21 12:15 Lymph # (Auto) 0.4 10^3/uL (0.8-4.8) L 10/10/21 12:15 [place] # (Auto) 0.8 10^3/uL (0.2-0.9) 10/10/21 12:15 Eos # (Auto) 0.1 10^3/uL (0.0-0.8) 10/10/21 12:15 Baso # (Auto) 0.1 10^3/uL (0.0-0.1) 10/10/21 12:15 Nucleated RBC % (auto) 0 % 10/10/21 12:15 Nucleated RBCs # 0.0 /100WBC 10/10/21 12:15 Sodium 131 mmol/L (136-145) L 10/10/21 12:15 Potassium 3.4 mmol/L (3.5-5.1) L 10/10/21 12:15 Chloride 97 mmol/L (98-107) L 10/10/21 12:15 Carbon Dioxide 21 mmol/L (22-29) L 10/10/21 12:15 Anion Gap 16.4 (5-19) 10/10/21 12:15 BUN 11 mg/dL (8-23) 10/10/21 12:15 Creatinine 0.8 mg/dL (0.7-1.2) 10/10/21 12:15 GFR Calculation Not Reportable 10/10/21 12:15 Glucose 96 mg/dL (65-115) 10/10/21 12:15 Calculated Osmolality 271 mOsm/kg (285-295) L 10/10/21 12:15 Calcium 8.3 mg/dL (8.5-10.5) L 10/10/21 12:15 SARS-CoV-2 RNA (RT-PCR) Detected (NOT DETECTED) A 10/10/21 12:10 SARS-CoV-2 RNA (RT-PCR) Detected (NOT DETECTED) A 10/10/21 12:10 10/10/21 Nasal/Oral Coronavirus 2019 PCR Detected H 08/31/20 12:54 08/31/20 Discharge Plan Discharge Patient Disposition: Home Clinical Impression: Clinical diagnosis of COVID-19 Condition: Stable Prescriptions: No Action aspirin 81 mg tablet,delayed release (DR/EC) 81 mg PO QAM 0RF docusate sodium [Colace] 100 mg capsule 100 mg PO DAILY PRN (Reason: Constipation) 0RF mupirocin 2 % ointment 1 applic topical BID Qty: 15 0RF simvastatin 40 mg tablet 40 mg PO DAILY@2000 Qty: 90 0RF ramipril 10 mg capsule 10 mg PO DAILY@0800 Qty: 100 1RF Euthyrox 50 mcg tablet 50 mcg PO QAM 0RF ProAir HFA 90 mcg/actuation Hfa Aerosol Inhaler 2 puff INHALATION QID PRN (Reason: Shortness Of Breath) 0RF alendronate 70 mg tablet 70 mg PO Q7D 0RF Rx Instructions: ON WEDNESDAY Plavix 75 mg tablet 75 mg PO QAM 0RF tamsulosin 0.4 mg capsule 0.4 mg PO QAM 0RF gabapentin 300 mg capsule 300 mg PO TID@08,14,20 0RF glipizide 5 mg tablet 2.5 mg PO QAM 0RF Discharge Orders: Discharge ED (Routine); Ordered 10/10/21 Ordered By: Ravindra Mitchell Referrals: Dulce Maria Alonzo FNP [Primary Care Provider] - Patient Instructions: COVID-19 (Coronavirus Disease 2019) (ED), Opioid Safety Coding Level of Care Code ED Director Of Cardiac Cath Lab for Oniel Ozuna
[2021-10-10 13:02] LABS: Anion Gap 16.4 (5-19); Blood Urea Nitrogen 11 mg/dL (8-23); Calcium 8.3 mg/dL (8.5-10.5); Carbon Dioxide 21 mmol/L (22-29); Chloride 97 mmol/L (98-107); Glucose 96 mg/dL (65-115); Osmolality Calculated 271 mOsm/kg (285-295); Potassium 3.4 mmol/L (3.5-5.1); Sodium 131 mmol/L (136-145)
[2021-10-10 13:23] VITALS: O2SAT 94; O2SAT 96
[2021-10-10 15:18] VITALS: O2SAT 92
[2021-10-10 15:53] VITALS: BP 168/86; PULSE 88; RESP 19; O2SAT 94
[2021-10-11 18:28] LABS: Quest SARS-CoV-2 RNA DETECTED (NOT DETECTED)
--- NOTE | 2021-10-13 18:42 | PC.NURSE ---
Notified pt of COVID (+)
== END 2021-10-10 15:43 | disposition home or self-care (01) ==
PROVIDERS: Emergency Medicine; Emergency Provider Family Medicine; PCP Nurse Practitioner Family
DX: U07.1 COVID-19 (principal); Z79.82 Long term (current) use of aspirin; Z79.84 Long term (current) use of oral hypoglycemic drugs; I25.10 Atherosclerotic heart disease of native coronary artery without angina pectoris; J44.9 Chronic obstructive pulmonary disease, unspecified; E11.9 Type 2 diabetes mellitus without complications; Z86.711 Personal history of pulmonary embolism; E78.2 Mixed hyperlipidemia; Z87.891 Personal history of nicotine dependence
CPT/HCPCS: 36415; 71045; 80048; 85025; 87635; 99283

== ENCOUNTER → 2021-11-14 10:01 | Outpatient (BNVA) | payer MEDICARE, MEDICAID, SELFPAY | PROVIDERS: PCP Nurse Practitioner Family; Visit Provider Internal Medicine Cardiovascular Disease | DX: I25.10 Atherosclerotic heart disease of native coronary artery without angina pectoris (principal); Z87.891 Personal history of nicotine dependence; Z95.1 Presence of aortocoronary bypass graft; Z79.82 Long term (current) use of aspirin; Z79.02 Long term (current) use of antithrombotics/antiplatelets | CPT/HCPCS: 99214 ==

== ENCOUNTER → 2021-11-20 08:04 | Outpatient (BNVA) | payer MEDICARE, MEDICAID, SELFPAY | PROVIDERS: PCP Nurse Practitioner Family; Visit Provider Orthopaedic Surgery | DX: Z48.89 Encounter for other specified surgical aftercare (principal) | CPT/HCPCS: 73502 ==

== ENCOUNTER 2021-11-25 13:15 | Outpatient (CLI) | payer MEDICARE, MEDICAID, SELFPAY | END 2021-11-25 13:16 | disposition home or self-care (01) | LOC: WOUND 13:24 | PROVIDERS: PCP Nurse Practitioner Family; Visit Provider Emergency Medicine | DX: E11.622 Type 2 diabetes mellitus with other skin ulcer (principal); Z87.891 Personal history of nicotine dependence; L97.811 Non-pressure chronic ulcer of other part of right lower leg limited to breakdown of skin; I96 Gangrene, not elsewhere classified; Z89.511 Acquired absence of right leg below knee | CPT/HCPCS: 97597; 11042; 99202; 99212; 99213 ==

== ENCOUNTER → 2021-11-28 08:26 | Outpatient (BNVA) | payer MEDICARE, MEDICAID, SELFPAY | PROVIDERS: PCP Nurse Practitioner Family; Visit Provider Orthopaedic Surgery | DX: Z01.812 Encounter for preprocedural laboratory examination (principal); Z20.822 Contact with and (suspected) exposure to COVID-19 | CPT/HCPCS: 87635 ==

== ENCOUNTER 2021-12-03 12:08 | Day surgery (SDC) | payer MEDICARE, MEDICAID, SELFPAY ==
[2021-11-27 10:46] VITALS: BMI 22.2
[2021-12-03] VITALS (10 sets, daily range): BP systolic 151–168; BP diastolic 75–100; PULSE 56–66; RESP 14–18; TEMP 36.1–36.9; O2SAT 95–100
--- NOTE | 2021-12-03 | SCC_ITS ---
Procedure done: 1. Hardware removal left hip 7.9 seconds of fluoroscopic guidance, for a cumulative dose of 0.97 mGy, was provided to Dr. Lawler by the radiology department. C-arm images of the left hip were saved for the patient's permanent record. [facility]
--- NOTE | 2021-12-03 | XR_ITS ---
WS: [id number] Left hip, C-arm fluoroscopy, 12/03/2021 Clinical Data: HARDWARE REMOVAL/FAILED HARDWARE Comparison: None. Findings: The 3 orthopedic screws reducing a left femoral neck fracture have been removed by Dr. Lawler. XR/XR hip LT 1V wo/w pel [id number] Impression: Removal left femoral neck screws.
--- NOTE | 2021-12-03 13:10 | ANES.PREANE2 ---
Pre-Anesthetic Assessment Height/Weight: Height 1.83 m Weight 74.389 kg Temp Pulse Resp BP Pulse Ox 98.4 F 66 14 153/91 96 12/03/21 13:00 12/03/21 13:00 12/03/21 13:00 12/03/21 13:00 12/03/21 13:00 Preop Diagnosis: Faailed Hardware Left Hip Operation Date: 12/03/21 13:50 Proposed Procedures p Hardware Removal Hip Screw(Left) - Ryan H Nuris, DO Familial anesthetic complications: None Was Beta Gabriella taken within 24 hours: N/A Was Clonidine taken within 24 hours: N/A Social No alcohol and No tobacco (h/o smoking) Exam alert, oriented x 3 and regular rate & rhythm Airway Submandibular: within normal limits Cervical ROM: within normal limits Mallampati: Class II Dentition: false Pulmonary Chronic Obstructive Pulmonary Disease PE CV/HEM Hypertension and Peripheral Vascular Disease GI Gastroesophageal Reflux Disease Metabolic Hyperlipidemia and Thyroid Disease Anesthetic Plan ASA status: 3 Anesthesia: General Medications/Allergies Home Medications Medication Instructions Recorded Confirmed Last Taken Type aspirin 81 mg tablet,delayed 81 mg PO QAM tab 09/08/19 11/27/21 10/10/21 06:00 History release docusate sodium 100 mg capsule 100 mg PO DAILY PRN 08/27/20 11/27/21 07/09/21 History (Colace) ramipril 10 mg capsule 10 mg PO DAILY@0800 #100 cap 10/09/21 11/27/21 10/10/21 06:00 Rx albuterol sulfate 90 mcg/actuation 2 puff INHALATION QID PRN 10/10/21 11/27/21 Unknown History aerosol inhaler (ProAir HFA) alendronate 70 mg tablet 70 mg PO Q7D 10/10/21 11/27/21 10/05/21 History clopidogrel 75 mg tablet (Plavix) 75 mg PO QAM 10/10/21 11/27/21 10/10/21 06:00 History levothyroxine 50 mcg tablet 50 mcg PO QAM 10/10/21 11/27/21 10/10/21 06:00 History (Euthyrox) gabapentin 300 mg capsule See Rx Instructions .ROUTE 10/13/21 11/27/21 Unknown Rx .COMPLEX #90 capsule glipizide 5 mg tablet See Rx Instructions .ROUTE 11/14/21 11/27/21 Unknown Rx .COMPLEX #30 tab simvastatin 40 mg tablet See Rx Instructions .ROUTE 11/14/21 11/27/21 Unknown Rx .COMPLEX #90 tab tamsulosin 0.4 mg capsule See Rx Instructions .ROUTE 11/14/21 11/27/21 Unknown Rx .COMPLEX #90 capsule Allergies Allergy/AdvReac Type Severity Reaction Status Date / Time No Known Allergies Allergy Verified 11/27/21 10:38 [facility] Anesthesia Medical History Above knee amputation of left lower extremity CAD (coronary artery disease) COPD (chronic obstructive pulmonary disease) Cystitis Diabetes Emphysema/COPD Fever Fracture of femoral neck, left GERD (gastroesophageal reflux disease) History of GI bleed Hx pulmonary embolism Hyperlipemia, mixed Hypothyroidism -Noted elevated TSH, normal free T4 -Continue levothyroxine Peripheral arterial disease Protracted bacterial bronchitis PVD (peripheral vascular disease) Subcapital fracture of left hip Type 2 diabetes mellitus with complication, without long-term current use of insulin -A1c at goal-6.2 -Accuchecks, ISS, hypoglycemia precautions -consistent carb diet as tolerated Urinary retention UTI (urinary tract infection) Surgical History H/O cataract extraction RIGHT History of below-knee amputation of right lower extremity History 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 Family History Mother Diabetes Hypertension Other CAD (coronary artery disease) Myocardial infarction Social History Smoking and tobacco status: former smoker Second hand smoke exposure: No Smoking risk assessment/counseling performed?: No Alcohol intake: never Desire information about alcohol rehabilitation?: No Counseling given: No Desire information about substance/drug rehabilitation?: No Counseling given: No Lives independently: Yes Household members: spouse Marital status: Current occupational status: retired History of recent travel: No Current gender identity: Male Data Anesthesia Cardiac Studies: Echocardiogram Ultrasound 06/15/20 Sestamibi Stress Test (Cardiology) 12/16/20
[2021-12-03 13:32] LABS: Glucose Point of Care 96 mg/dL (70-110)
--- NOTE | 2021-12-03 13:39 | ECG_ITS ---
[facility] Test Date: 2021-12-03 Pat Name: Mauro Espino Department: Room: Gender: Male Data Recovery Planner: : 1940 Requested By: Armando Nieves Order Number: [id number] Alexys MD: Jeffery Wilkes M.D. Measurements Intervals [place] Rate: 63 P: 68 ND: 166 QRS: -58 QRSD: 132 T: 0 QT: 412 QTc: 424 Interpretive Statements SINUS RHYTHM WITH FREQUENT VENTRICULAR PREMATURE COMPLEXES LEFT AXIS DEVIATION [QRS AXIS < -30] INTRAVENTRICULAR CONDUCTION DELAY [130+ ms QRS DURATION] Compared to ECG 07/10/2021 13:57:11 No significant changes Electronically Signed On 12-03-2021 19:30:56 CDT by Jeffery Wilkes M.D. [email or web address]
[2021-12-03] MEDS: sodium chloride 0.9% 1,000 ML 30 ML IV (13:40)
--- NOTE | 2021-12-03 15:48 | PM.HP ---
Documented by User: Parvez Farah PA-C 12/03/21 15:51 Providers/Chief Complaint Admitting Physician: Dr Lawler Primary Care Provider: ANNE MARIE Beverly Chief Complaint: painful hardware t84.84xa History of Present Illness Mauro Espino is a 81 year old male patient who had a closed reduction percutaneous screw of left femoral neck.? DOS 07/11/21.? Patient is 18 weeks post operative. he developed Left hip pain and wanted the hardware removed. Review of Systems Skin/Breast: Reports: sores (right stump) Medications/Allergies Home Medications Medication Instructions Recorded Confirmed Last Taken Type aspirin 81 mg tablet,delayed 81 mg PO QAM tab 09/08/19 12/03/21 12/02/21 History release docusate sodium 100 mg capsule 100 mg PO DAILY PRN 08/27/20 11/27/21 07/09/21 History (Colace) albuterol sulfate 90 mcg/actuation 2 puff INHALATION QID PRN 10/10/21 11/27/21 Unknown History aerosol inhaler (ProAir HFA) alendronate 70 mg tablet (Fosamax) 70 mg PO Q7D 10/10/21 12/03/21 12/02/21 History clopidogrel 75 mg tablet (Plavix) 75 mg PO QAM 10/10/21 12/03/21 12/02/21 History levothyroxine 50 mcg tablet 50 mcg PO QAM 10/10/21 12/03/21 11/30/21 History (Euthyrox) gabapentin 300 mg capsule See Rx Instructions .ROUTE 10/13/21 12/03/21 12/02/21 Rx .COMPLEX #90 capsule glipizide 5 mg tablet See Rx Instructions .ROUTE 11/14/21 12/03/21 12/02/21 08:00 Rx .COMPLEX #30 tab simvastatin 40 mg tablet See Rx Instructions .ROUTE 11/14/21 12/03/21 12/02/21 07:00 Rx .COMPLEX #90 tab tamsulosin 0.4 mg capsule See Rx Instructions .ROUTE 11/14/21 12/03/21 12/02/21 07:00 Rx .COMPLEX #90 capsule hydrocodone 5 mg-acetaminophen 325 1 - 2 tab PO .Q4-6H #40 tab 12/03/21 Unknown Rx mg tablet ramipril 10 mg capsule (Altace) 10 mg PO DAILY@0800 12/03/21 12/03/21 12/02/21 07:00 History Allergies Allergy/AdvReac Type Severity Reaction Status Date / Time No Known Allergies Allergy Verified 11/27/21 10:38 PFSH Acute PFSH: Medical History Above knee amputation of left lower extremity CAD (coronary artery disease) COPD (chronic obstructive pulmonary disease) Cystitis Diabetes Emphysema/COPD Fever Fracture of femoral neck, left GERD (gastroesophageal reflux disease) History of GI bleed Hx pulmonary embolism Hyperlipemia, mixed Hypothyroidism -Noted elevated TSH, normal free T4 -Continue levothyroxine Peripheral arterial disease Protracted bacterial bronchitis PVD (peripheral vascular disease) Subcapital fracture of left hip Type 2 diabetes mellitus with complication, without long-term current use of insulin -A1c at goal-6.2 -Accuchecks, ISS, hypoglycemia precautions -consistent carb diet as tolerated Urinary retention UTI (urinary tract infection) Surgical History H/O cataract extraction RIGHT History of below-knee amputation of right lower extremity History 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 Family History Mother Diabetes Hypertension Other CAD (coronary artery disease) Myocardial infarction Social History Smoking and tobacco status: former smoker Second hand smoke exposure: No Smoking risk assessment/counseling performed?: No Alcohol intake: never Desire information about alcohol rehabilitation?: No Counseling given: No Desire information about substance/drug rehabilitation?: No Counseling given: No Lives independently: Yes Household members: spouse Marital status: Current occupational status: retired History of recent travel: No Current gender identity: Male Vitals/I&O/Wt Last Vital Signs Temp 98.4 F 12/03/21 13:00 Pulse 66 12/03/21 13:00 Resp 14 12/03/21 13:00 BP 153/91 12/03/21 13:00 Pulse Ox 96 12/03/21 13:00 Physical Exam HENMT: COMMON NORMALS: normocephalic Resp: COMMON NORMALS: normal respiratory effort Cardio: COMMON NORMALS: regular rate and regular rhythm Psych: COMMON NORMALS: cooperative A&P Assessment and plan (1) Painful orthopaedic hardware: Proceed with Hardware removal Left hip. Status: Acute Attestations Medical Necessity Statement*: home Coding Level of Care Code Acute Gold And Silver Assayer for Abdulazizg Fwd Exam Expanded Problem Focused Diagnoses Painful orthopaedic hardware T84.84XA
--- NOTE | 2021-12-03 16:42 | PM.OP ---
Operative Report Date of procedure: December 03, 2021 Pre-op diagnosis: Preop Diagnosis Faailed Hardware Left Hip Post-op diagnosis: same Procedure done: 1. Hardware removal left hip Surgeon: Ryan Lawler Certified Fraud Examiner: Parvez Farah Estimated blood loss (mL): 5 Procedure: Patient was brought to the operative suite after undergoing anesthesia all areas impingement well-padded. Patient was placed in the lateral decubitus position with the left side up. Patient was then prepped and draped normal sterile fashion. Skin incision made over the previous incision. Dissection was made down the IT band was split and the screw heads were identified and backed out with a screwdriver. The screws removed. The C-arm was brought in and the fracture did not appear to be 100% stable however did move his unit. Wounds were then irrigated and closed with Vicryl and steph. Sterile dressings applied patient was transferred to the PACU in stable addition.
--- NOTE | 2021-12-03 16:45 | SUR.PHASEI ---
16:34 RECIEVED PATIENT FROM OR STAFF. VENTILATING WELL. NSR ON MONITOR. AIRWAY PATENT WITHLMA IN PLACE AND O2.
--- NOTE | 2021-12-03 16:47 | SUR.PHASEI ---
16:40. RESPONDS TO VERBAL. LMA DC ED. ON FACE MASK. AIRWAY PATENT. VENTILATING WELL.
--- NOTE | 2021-12-03 16:48 | ANE.PACU2 ---
Inpatient post-anesthesia follow up: Airway intact: Yes Vital signs: Temperature 97.8 F Pulse Rate 60 Respiratory Rate 14 Blood Pressure 151/75 Pulse Oximetry 98 Oxygen Delivery Me thod Simple Mask Oxygen Flow Rate 8 Fraction of Inspir ed Oxygen Hydration adequate: Yes Nausea and vomiting: No Pain level: 2 Mental status: Baseline
[2021-12-03 17:21] LABS: Glucose Point of Care 109 mg/dL (70-110)
== END 2021-12-03 17:38 | disposition home or self-care (01) ==
PROVIDERS: PCP Nurse Practitioner Family; Visit Provider Orthopaedic Surgery
PROC: (CPT 20680; principal; 2021-12-03 13:40)
DX: T84.84XA Pain due to internal orthopedic prosthetic devices, implants and grafts, initial encounter (principal); Z86.711 Personal history of pulmonary embolism; K21.9 Gastro-esophageal reflux disease without esophagitis; E78.5 Hyperlipidemia, unspecified; Z79.82 Long term (current) use of aspirin; I25.10 Atherosclerotic heart disease of native coronary artery without angina pectoris; E11.9 Type 2 diabetes mellitus without complications; J43.9 Emphysema, unspecified; E78.2 Mixed hyperlipidemia; E03.9 Hypothyroidism, unspecified; Z82.49 Family history of ischemic heart disease and other diseases of the circulatory system; Z83.3 Family history of diabetes mellitus; Z87.891 Personal history of nicotine dependence; Z95.1 Presence of aortocoronary bypass graft
CPT/HCPCS: 20680; 36416; 73501; 76000; 82962; 93005; J0690; J1100; J2370; J2405; J2704; J3010; J7030

== ENCOUNTER → 2021-12-09 13:07 | Outpatient (BNVA) | payer MEDICARE, MEDICAID, SELFPAY | PROVIDERS: PCP Nurse Practitioner Family; Visit Provider Emergency Medicine | DX: E11.622 Type 2 diabetes mellitus with other skin ulcer (principal); L89.891 Pressure ulcer of other site, stage 1; I96 Gangrene, not elsewhere classified; L97.811 Non-pressure chronic ulcer of other part of right lower leg limited to breakdown of skin | CPT/HCPCS: 11042; 99212 ==

== ENCOUNTER 2021-12-10 10:01 | Outpatient (CLI) | payer MEDICARE, MEDICAID, SELFPAY ==
--- NOTE | 2021-12-10 10:49 | USCV_ITS ---
Mauro Espino Age: 81 Gender: M : 1940 Exam Date: 12/10/2021 11:08 Ordering Phys: Lesley Kan DO Technologist: MIGUEL [place]am [place] [facility] [place]: s/p RIGHT BKA 2007. c/o non-healing ulcers on the anterior surface of the RIGHT knee and the RIGHT proximal, anterior wright. Quit smoking 2007. DM2. Risk Factors: s/p RIGHT BKA 2007. c/o non-healing ulcers on the anterior surface of the RIGHT knee and the RIGHT proximal, anterior wright. Quit smoking 2007. DM2. Previous Vascular Surgery: Patient is a poor historian. Upon questioning, he states that he has had several vascular, surgical, interventions . There is a LEFT AKA and a RIGHT BKA, which patient states was done in 2007. He has had intermittent ulcerations on the anterior RIGHT knee and proximal RIGHT wright ever since. These come and go. Upon further questioning, patient states that, yes, he has had some kind of a bypass graft in his RIGHT leg, but cannot say what was performed. RIGHT LEFT Waveform Velocity (cm/s) Velocity (cm/s) Waveform Triphasic 217.7 Iliac Prox Triphasic Iliac Mid 172.7 Triphasic 179.9 Iliac Distal Triphasic 181.7 BARREL ENDSHAKE ADJUSTER N/A 0.0 SFA Prox N/A 0.0 SFA Mid N/A 0.0 SFA Dist N/A POP 0.0 N/A SOURCING CONSULTANT N/A DPA FINDINGS Biphasic with Doppler waveform in the iliofemoral bypass graft on the right side No Doppler signals in the femoropopliteal bypass graft CONCLUSIONS 1. Patent iliofemoral bypass graft on the right side with no significant stenosis, based on the Doppler velocities. 2. No flow was detected in the femoral-popliteal bypass graft on the right side. 3. No Doppler flow signals in the popliteal artery on the right side Dr Jeffery Wilkes MD [facility] (Electronically Signed) Final Date: 12 December 2021 10:08 S
== END 2021-12-10 10:02 | disposition home or self-care (01) ==
LOC: RAD 10:06
PROVIDERS: PCP Nurse Practitioner Family; Visit Provider Emergency Medicine
DX: E11.621 Type 2 diabetes mellitus with foot ulcer (principal)
CPT/HCPCS: 93926

== ENCOUNTER → 2021-12-16 13:17 | Outpatient (BNVA) | payer MEDICARE, MEDICAID, SELFPAY | PROVIDERS: PCP Nurse Practitioner Family; Visit Provider Emergency Medicine | DX: T87.81 Dehiscence of amputation stump (principal); I96 Gangrene, not elsewhere classified; E11.622 Type 2 diabetes mellitus with other skin ulcer; L89.891 Pressure ulcer of other site, stage 1 | CPT/HCPCS: 11042 ==

== ENCOUNTER → 2021-12-18 09:53 | Outpatient (BNVA) | payer MEDICARE, MEDICAID, SELFPAY | PROVIDERS: PCP Nurse Practitioner Family; Visit Provider Orthopaedic Surgery | DX: Z47.89 Encounter for other orthopedic aftercare (principal); Z98.890 Other specified postprocedural states; Z98.1 Arthrodesis status | CPT/HCPCS: 99024 ==

== ENCOUNTER → 2021-12-23 13:12 | Outpatient (BNVA) | payer MEDICARE, MEDICAID, SELFPAY | PROVIDERS: PCP Nurse Practitioner Family; Visit Provider Emergency Medicine | DX: T87.81 Dehiscence of amputation stump (principal); I96 Gangrene, not elsewhere classified; E11.622 Type 2 diabetes mellitus with other skin ulcer; L97.811 Non-pressure chronic ulcer of other part of right lower leg limited to breakdown of skin; Z87.891 Personal history of nicotine dependence | CPT/HCPCS: 11042 ==

== ENCOUNTER → 2021-12-24 11:06 | Outpatient (BNVA) | payer MEDICARE, MEDICAID, SELFPAY | PROVIDERS: PCP Nurse Practitioner Family; Visit Provider Nurse Practitioner Family | DX: I10 Essential (primary) hypertension (principal); E11.9 Type 2 diabetes mellitus without complications; E03.9 Hypothyroidism, unspecified | CPT/HCPCS: 80053; 83036; 84443 ==

== ENCOUNTER → 2021-12-25 12:23 | Outpatient (BNVA) | payer MEDICARE, MEDICAID, SELFPAY | PROVIDERS: PCP Nurse Practitioner Family; Visit Provider Thoracic Surgery (Cardiothoracic Vascular Surgery) | DX: I73.9 Peripheral vascular disease, unspecified (principal); Z89.511 Acquired absence of right leg below knee; Z87.891 Personal history of nicotine dependence | CPT/HCPCS: 99203 ==

== ENCOUNTER → 2021-12-30 10:21 | Outpatient (BNVA) | payer MEDICARE, MEDICAID, SELFPAY | PROVIDERS: PCP Nurse Practitioner Family; Visit Provider Emergency Medicine | DX: E11.622 Type 2 diabetes mellitus with other skin ulcer (principal); I96 Gangrene, not elsewhere classified; T87.81 Dehiscence of amputation stump; L97.811 Non-pressure chronic ulcer of other part of right lower leg limited to breakdown of skin | CPT/HCPCS: 11042 ==

== ENCOUNTER → 2022-01-06 10:29 | Outpatient (BNVA) | payer MEDICARE, MEDICAID, SELFPAY | PROVIDERS: PCP Nurse Practitioner Family; Visit Provider Emergency Medicine | DX: E11.622 Type 2 diabetes mellitus with other skin ulcer (principal); L98.491 Non-pressure chronic ulcer of skin of other sites limited to breakdown of skin; Z09 Encounter for follow-up examination after completed treatment for conditions other than malignant neoplasm; I96 Gangrene, not elsewhere classified; Z87.891 Personal history of nicotine dependence | CPT/HCPCS: 99212; 99213 ==

== ENCOUNTER → 2022-01-13 09:01 | Outpatient (BNVA) | payer MEDICARE, MEDICAID, SELFPAY | PROVIDERS: PCP Nurse Practitioner Family; Visit Provider Emergency Medicine | DX: Z09 Encounter for follow-up examination after completed treatment for conditions other than malignant neoplasm (principal); Z87.891 Personal history of nicotine dependence | CPT/HCPCS: 99212; A6212 ==

== ENCOUNTER → 2022-01-15 08:53 | Outpatient (BNVA) | payer MEDICARE, MEDICAID, SELFPAY | PROVIDERS: PCP Nurse Practitioner Family; Visit Provider Orthopaedic Surgery | DX: Z47.89 Encounter for other orthopedic aftercare (principal); Z98.890 Other specified postprocedural states | CPT/HCPCS: 73502; 99024 ==

== ENCOUNTER 2022-01-20 11:45 | Outpatient (CLI) | payer MEDICARE, MEDICAID, SELFPAY ==
--- NOTE | 2022-01-20 12:30 | CT_ITS ---
WS: [id number] CTA ABDOMINAL AORTA WITH RUNOFF TECHNIQUE: Contrast enhanced CTA of the abdominal aorta with bilateral lower extremity runoff. Multip lanar reformatted images were obtained. MIP reformats were also reviewed. CLINICAL INFORMATION: PVD COMPARISON: February 07, 2020 DLP: 752.[address] scans at [facility] use at least one of these dose optimization techniques: automated e xposure control; mA and/or kV adjustment per patient size (includes targeted exams where dose is matc hed to clinical indication); or iterative reconstruction. FINDINGS: Prior postoperative changes RIGHT below the knee amputation and new LEFT [id number] amp utation. Mild soft tissue edema distal stump. RIGHT: Right common iliac artery is patent. Moderate calcified atheromatous disease. Internal and ext ernal iliac arteries are patent. Right external iliac stent is patent. Mid and distal external iliac artery stents are patent with mild segmental narrowing. Right common femoral artery is patent. SUPERF ICIAL FEMORAL ARTERY IS OCCLUDED AT THE ORIGIN WITH OCCLUDED BYPASS GRAFT. This is unchanged from . Deep femoral artery is patent. Superficial femoral artery remains occluded to popliteal fossa. Pop liteal artery is occluded. Trifurcation is occluded. No significant runoff. LEFT: Left common iliac artery is patent. External iliac artery stent is patent. Internal iliac arter y is patent. Moderate calcified atheromatous disease. External iliac artery stents distally are paten t. MODERATE STENOSIS AT THE EXTERNAL ILIAC/ COMMON FEMORAL ARTERY JUNCTION PROGRESSED COMPARED TO PRE VIOUS. Deep femoral artery is patent. NEW COMMON FEMORAL TO POPLITEAL BYPASS GRAFT IS COMPLETELY OCCL UDED. 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 No aneurysm. Moderate calcified atheromatous disease. Celiac and SMA are patent. Mild stenosis at the celiac origin. Chronic appearing interstitial thickening in the lung bases. Moderate calcification at the renal artery ostia bilaterally. Normal renal parenchymal enhanc ement. IVC filter. Small esophageal hiatal hernia. Distended stomach with air-fluid levels. Contracted gallbladder with cholelithiasis. Normal portal vein and splenic vein. Normal spleen. Normal pancreatic parenchymal enh ancement. Mild thickening of the LEFT adrenal gland. RIGHT adrenal gland is normal. Normal renal parenchymal en hancement. No hydronephrosis. A few small bilateral renal cysts. Enlarged heterogeneous calcified pro state with evidence of bladder outlet obstruction. Diffuse bladder wall thickening. Prostate measures 4.8 x 6.0 CM. Recommend correlation PSA. Chronic posttraumatic deformity LEFT femoral neck with evidence of incomplete healing. Prior screw tr acts fixation. Visualized residual fracture line in the subcapital femoral neck. Sigmoid diverticulos is. No evidence of acute diverticulitis CT/CT angio abd aorta runof [id number] IMPRESSION: 1. 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 Popliteal artery is occluded. No significant runoff. This is unchanged from previous. 2. New LEFT phstd-hka-[id number] amputation. New common femoral to popliteal bypass graft is completely occluded with no flow. 3. Moderate stenosis at the LEFT external iliac/ common femoral junction above the occluded bypass graft appears progressed compared to previous. 4. No abdominal aortic aneurysm. 5. Celiac and SMA are patent. Mild stenosis at the celiac origin. 6. Markedly enlarged calcified prostate with bladder outlet obstruction. Corre lation PSA. 7. Gallbladder is contracted with cholelithiasis. 8. IVC filter. 9. Posttraumatic deformity with incomplete healing LEFT femoral neck with inco mpletely healed fracture subcapital femoral neck.
[2022-01-20] MEDS: iohexol 350 mg/mL 100 mL Btl IV (13:05)
== END 2022-01-20 11:46 | disposition home or self-care (01) ==
LOC: RAD 11:49
PROVIDERS: PCP Nurse Practitioner Family; Visit Provider Thoracic Surgery (Cardiothoracic Vascular Surgery)
DX: I73.9 Peripheral vascular disease, unspecified (principal); Z89.511 Acquired absence of right leg below knee; Z89.612 Acquired absence of left leg above knee; I70.8 Atherosclerosis of other arteries; N40.0 Benign prostatic hyperplasia without lower urinary tract symptoms; K80.20 Calculus of gallbladder without cholecystitis without obstruction
CPT/HCPCS: 75635

== ENCOUNTER 2022-02-18 09:28 | Outpatient (CLI) | payer MEDICARE, MEDICAID, SELFPAY ==
--- NOTE | 2022-02-18 10:15 | US_ITS ---
WS: [id number] Exam: US scrotum [id number] Date/Time of Exam: 02/18/2022 10:25 AM Reason For Exam: N50.89 - Other specified disorders of the male genital or... The testicles demonstrate normal echotexture without evidence of mass or nodule. Both testicles demon strate normal vascularity with color-flow Doppler. Enlarged hyperemic left epididymis noted suggestin g epididymitis. Normal right epididymis. Moderate bilateral hydroceles are noted. The left testicle m easures 3.9 x 2.53 x 2.6 cm. The right testicle measures 3.96 x 2.3 x 3 cm. No significant scrotal wa ll abnormality was demonstrated. US/US scrotum [id number] IMPRESSION: 1. Left-sided epididymitis. 2. Moderate bilateral hydroceles. 3. No indication of testicular mass, torsion or other significant finding.
== END 2022-02-18 09:29 | disposition home or self-care (01) ==
LOC: RAD 09:35
PROVIDERS: PCP Nurse Practitioner Family; Visit Provider Nurse Practitioner Family
DX: N50.89 Other specified disorders of the male genital organs (principal)
CPT/HCPCS: 76870

== ENCOUNTER → 2022-04-02 11:32 | Outpatient (BNVA) | payer MEDICARE, MEDICAID, SELFPAY | PROVIDERS: PCP Nurse Practitioner Family; Visit Provider Nurse Practitioner Family | DX: E03.9 Hypothyroidism, unspecified (principal); E11.9 Type 2 diabetes mellitus without complications | CPT/HCPCS: 83036; 84443 ==

== ENCOUNTER → 2022-06-12 11:13 | Outpatient (BNVA) | payer MEDICARE, MEDICAID, SELFPAY | PROVIDERS: PCP Nurse Practitioner Family; Visit Provider Nurse Practitioner Family | DX: Z20.822 Contact with and (suspected) exposure to COVID-19 (principal); R05.9 Cough, unspecified; R50.9 Fever, unspecified; R69 Illness, unspecified; J06.9 Acute upper respiratory infection, unspecified | CPT/HCPCS: 87400; 87426 ==

== ENCOUNTER 2022-08-22 09:13 | Inpatient (IN) | payer MEDICARE, MEDICAID, SELFPAY ==
[2022-08-22] VITALS (11 sets, daily range): BP systolic 81–128; BP diastolic 42–73; PULSE 55–105; RESP 16–20; TEMP 36.9–37.9; O2SAT 88–94; BMI 19.1
--- NOTE | 2022-08-22 09:33 | XRR_ITS ---
PROCEDURE INFORMATION: Exam: XR Chest Exam date and time: 08/22/2022 10:16 AM Age: 82 years old Clinical indication: Cough; Additional info: Cough, fevers TECHNIQUE: Imaging protocol: Radiologic exam of the chest. Views: 1 view. COMPARISON: CR XR chest 1V portable [id number] 10/10/2021 11:49 AM FINDINGS: Lungs: Interstitial lung prominence similar to prior exam may be related to emphysematous disease. No significant airspace consolidation concerning for pneumonia. Pleural spaces: No pneumothorax. No pleural effusion. Heart/Mediastinum: The cardiomediastinal silhouette is within normal limits. Bones/joints: Median sternotomy wires and postsurgical changes in the mediastinum identified. XR/XR chest 1V portable [id number] IMPRESSION: No significant airspace consolidation concerning for pneumonia.
--- NOTE | 2022-08-22 09:44 | ED_ITS ---
HPI - URI/Sore Throat General: Chief Complaint: Upper Respiratory Infection Stated Complaint: cough, flu like symptoms Time Seen by Provider: 08/22/22 09:22 Source: patient and family Mode of arrival: ambulatory Limitations: no limitations History of Present Illness: Patient is an 82-year-old male with an extensive medical history here along with family for concerns of a cough, fevers, and body aches beginning yesterday evening. Family states fever was as high as 103 yesterday evening. He is complaining of productive cough, mild shortness of breath, diffuse myalgias. He has no other URI-like symptoms. He does not complain of any pain in his chest. No sick contacts. He is unvaccinated for C OVID. Patient received an influenza vaccine approximately 2 months ago. Family state that patient has been weak and confused because of the fever. MD elicited complaint: fever, cough and other (body aches) Onset (ago): day(s) (yesterday) Able to tolerate fluids by mouth: Yes Associated symptoms: Reports chills and fever(s); Deny abdominal pain, chest pain, diarrhea, ear or mastoid pain, headache(s), nasal congestion, nausea, sinus pain or vomiting Review of Systems Const: Reports: fever(s), chills and body aches Eyes: Denies: change in vision, blurry vision or photophobia ENMT: Denies: throat pain, odynophagia, ear or mastoid pain, nasal discharge, nasal congestion, post nasal drip or sinus pain Card: Reports: dyspnea on exertion (chronic from COPD); Denies: chest pain, palpitations, irregular heart rhythm, edema, swelling of feet/ankles, lightheadedness, syncope or pre-syncope Resp: Reports: dyspnea, productive cough and chest congestion; Denies: wheezing, stridor, pain on inspiration or hemoptysis GI: Denies: abdominal pain, nausea, vomiting or diarrhea : Denies: flank pain or dysuria Musc: Denies: neck pain, back pain, extremity pain or joint pain Skin/Breast: Denies: rash Neuro: Denies: headache(s) or dizziness PFSH ED PFSH: Medical History Above knee amputation of left lower extremity CAD (coronary artery disease) COPD (chronic obstructive pulmonary disease) Cystitis Diabetes Emphysema/COPD Fever Fracture of femoral neck, left GERD (gastroesophageal reflux disease) History of GI bleed Hx pulmonary embolism Hyperlipemia, mixed Hypothyroidism -Noted elevated TSH, normal free T4 -Continue levothyroxine Peripheral arterial disease Protracted bacterial bronchitis PVD (peripheral vascular disease) Subcapital fracture of left hip Type 2 diabetes mellitus with complication, without long-term current use of insulin -A1c at goal-6.2 -Accuchecks, ISS, hypoglycemia precautions -consistent carb diet as tolerated Urinary retention UTI (urinary tract infection) Surgical History H/O cataract extraction RIGHT History of below-knee amputation of right lower extremity History 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 Family History Mother Diabetes Hypertension Other CAD (coronary artery disease) Myocardial infarction Social History Smoking and tobacco status: former smoker Second hand smoke exposure: No Smoking risk assessment/counseling performed?: No Alcohol intake: never Desire information about alcohol rehabilitation?: No Counseling given: No Desire information about substance/drug rehabilitation?: No Counseling given: No Lives independently: Yes Household members: spouse Marital status: Current occupational status: retired History of recent travel: No Current gender identity: Male Physical Exam Const: COMMON NORMALS: patient oriented x3, no limitations and alert GENERAL APPEARANCE: cooperative and in distress (respiratory distress with hypoxia ) ORIENTATION/CONSCIOUSNESS: Yes awake, Yes oriented to person, Yes oriented to place and Yes oriented to time HENMT: COMMON NORMALS: normocephalic and atraumatic HEAD & SCALP: normal to inspection, normocephalic and atraumatic FACE & SINUS: normal facial exam MOUTH: Normal oral and palatal mucosa present, lip normal and tongue normal THROAT: posterior oropharynx normal and tonsils normal Eye: GENERAL EYE: appearance normal, both eyes and all related structures Neck/C-Spine: COMMON NORMALS: full ROM and no lymphadenopathy GENERAL: Yes normal visual inspection Chest: COMMONS NORMALS: normal inspection of the chest and normal palpation of entire chest wall Resp: COMMON NORMALS: No retractions EFFORT & INSPECTION: Yes tachypneic, No labored, No grunting, No stridor, No retractions, No uses accessory muscles and No audible wheezes AUSCULTATION: rhonchi (semi improved with coughing) Cardio: COMMON NORMALS: regular rhythm RATE: tachycardic (mild-103 to 105; patient with low grade fever present) RHYTHM: regular rhythm GI: COMMON NORMALS: Normal to inspection, nondistended, normoactive bowel sounds present, Soft to palpation and non-tender PALPATION: Yes Soft to palpation : COMMON NORMALS: Yes no CVA tenderness BLADDER/KIDNEY EXAM: Yes no CVA tenderness Back/Pelvis: COMMON NORMALS: no CVA tenderness Extremity: NARRATIVE EXTREMITY EXAM: bilateral LE amputations Neuro: PIERRE COMA SCALE: document GCS findings Pierre coma scale eye opening: Spontaneous Pierre coma scale verbal response: Orientated Evarts coma scale motor response: Obey commands Pierre coma scale total score: 15 COMMON NORMALS: patient oriented x3 SENSORIUM/ORIENTATION: Yes alert, Yes oriented to person, Yes oriented to place and Yes oriented to time Skin: COMMON NORMALS: no rashes or lesions noted GENERAL SKIN EXAM: no rashes or lesions noted Course Consultations: Consultation #1: Dr. Prieto-accepts admission, recommends fluids, IV Levaquin for UTI, and oral Tamiflu Vital Signs: Vital signs: Vital Signs Temperature 100.3 F H 08/22/22 09:34 Pulse Rate 87 08/22/22 11:09 Respiratory Rate 18 08/22/22 11:09 Blood Pressure 101/55 08/22/22 11:09 Pulse Oximetry 88 L 08/22/22 11:49 Oxygen Delivery Me thod 08/22/22 09:34 Oxygen Flow Rate 3 08/22/22 11:49 MDM - URI/Sore Throat Medical Decision Making Patient is an 82-year-old male with an extensive medical history here for complaints of shortness of breath, cough, and fevers. He is influenza positive. He is satting 88% on room air. He is 92% currently on 3L. Lab work overall is fairly unremarkable. He does have a UTI. He does have a history of this previously growing pseudomonas aeruginosa. Family state that patient has been weak and confused. Confusion could be secondary to fever and/or UTI. They feel they will have a hard time caring for him at home thus are requesting admission. I think this is reasonable. I spoke to Dr. Prieto who accepts admit. I spoke to Dr. Maria who agrees with plan for patient. Lab Data 08/22/22 10:00 08/22/22 10:21 Radiology Impressions Chest X-Ray 08/22/22 09:33 IMPRESSION: No significant airspace consolidation concerning for pneumonia. Laboratory Results WBC 7.0 10^3/uL (4.0-10.0) 08/22/22 10:00 RBC 5.38 10^6/uL (4.1-5.3) H 08/22/22 10:00 Hgb 15.8 g/dL (11.7-16.6) 08/22/22 10:00 Hct 49.0 % (42.0-52.0) 08/22/22 10:00 MCV 91.1 fl (80-94) 08/22/22 10:00 MCH 29.4 pg (28.0-34.0) 08/22/22 10:00 MCHC 32.2 g/dL (30.0-36.0) 08/22/22 10:00 RDW 13.7 % (12.1-15.1) 08/22/22 10:00 Plt Count 171 10^3/cmm (130-400) 08/22/22 10:00 MPV 9.6 fL (7.4-10.4) 08/22/22 10:00 Neut % (Auto) 80.1 % 08/22/22 10:00 Lymph % (Auto) 8.2 % 08/22/22 10:00 Bacon % (Auto) 10.1 % 08/22/22 10:00 Eos % (Auto) 0.3 % 08/22/22 10:00 Baso % (Auto) 0.7 % 08/22/22 10:00 Neut # (Auto) 5.64 10^3/uL (1.8-7.7) 08/22/22 10:00 Lymph # (Auto) 0.6 10^3/uL (0.8-4.8) L 08/22/22 10:00 Bacon # (Auto) 0.7 10^3/uL (0.2-0.9) 08/22/22 10:00 Eos # (Auto) 0.0 10^3/uL (0.0-0.8) 08/22/22 10:00 Baso # (Auto) 0.1 10^3/uL (0.0-0.1) 08/22/22 10:00 Nucleated RBC % (auto) 0 % 08/22/22 10:00 Nucleated RBCs # 0.0 /100WBC 08/22/22 10:00 Sodium 132 mmol/L (136-145) L 08/22/22 10:21 Potassium 4.2 mmol/L (3.5-5.1) 08/22/22 10:21 Chloride 94 mmol/L (98-107) L 08/22/22 10:21 Carbon Dioxide 23 mmol/L (22-29) 08/22/22 10:21 Anion Gap 19.2 (5-19) H 08/22/22 10:21 BUN 10 mg/dL (8-23) 08/22/22 10:21 Creatinine 1.0 mg/dL (0.7-1.2) 08/22/22 10:21 GFR Calculation Not Reportable 08/22/22 10:21 Glucose 81 mg/dL (65-115) 08/22/22 10:21 Calculated Osmolality 272 mOsm/kg (285-295) L 08/22/22 10:21 Lactic Acid 1.7 mmol/L (0.5-2.2) 08/22/22 10:21 Calcium 9.3 mg/dL (8.5-10.5) 08/22/22 10:21 Total Bilirubin 0.5 mg/dL (0.15-1.2) 08/22/22 10:21 AST 20 U/L (0-40) 08/22/22 10:21 ALT 8 U/L (0-41) 08/22/22 10:21 Alkaline Phosphatase 74 U/L (40-130) 08/22/22 10:21 Total Protein 7.6 g/dL (6.6-8.7) 08/22/22 10:21 Albumin 4.2 g/dL (3.5-5.2) 08/22/22 10:21 Globulin 3.4 g/dL (1.3-4.6) 08/22/22 10:21 Procalcitonin 0.06 ng/mL (0-0.5) 08/22/22 10:21 Urine Color Yellow (Yellow) 08/22/22 10:32 Urine Appearance Sl hazy (CLEAR) A 08/22/22 10:32 Urine pH 6 (5-7) 08/22/22 10:32 Ur Specific Warne 1.015 (1.005-1.030) 08/22/22 10:32 Urine Protein Trace (Negative) 08/22/22 10:32 Urine Glucose (UA) Norm (Normal) 08/22/22 10:32 Urine Ketones 1+ (Negative) H 08/22/22 10:32 Urine Blood 3+ (Negative) H 08/22/22 10:32 Urine Nitrate Negative (Negative) 08/22/22 10:32 Urine Bilirubin Neg (Negative) 08/22/22 10:32 Urine Urobilinogen Norm mg/dL (Negative) 08/22/22 10:32 Ur Leukocyte Esterase 2+ (Negative) H 08/22/22 10:32 Urine RBC 15-25 /hpf (0-2) H 08/22/22 10:32 Urine WBC 40-55 /hpf (0-5) H 08/22/22 10:32 Ur Squamous Epith Cells Rare /hpf (0-5) 08/22/22 10:32 Amorphous Sediment Not Reportable 08/22/22 10:32 Urine Bacteria 2+ /hpf (NONE) H 08/22/22 10:32 Urine Mucus Trace /hpf 08/22/22 10:32 Nasal Influ A H1 2008 PCR Detected (NOT DETECT) A 08/22/22 09:57 Adenovirus (PCR) Not detected (NOT DETECT) 08/22/22 09:57 C. pneumoniae DNA (PCR) Not detected (NOT DETECT) 08/22/22 09:57 Coronavirus 229E (PCR) Not detected (NOT DETECT) 08/22/22 09:57 Human Metapneumovir PCR Not detected (NOT DETECT) 08/22/22 09:57 Influenza A (H1) PCR Not detected (NOT DETECT) 08/22/22 09:57 Influenza A (H3) PCR Not detected (NOT DETECT) 08/22/22 09:57 Influenza Type A (PCR) Detected (NOT DETECT) A 08/22/22 09:57 Influenza Type B (PCR) Not detected (NOT DETECT) 08/22/22 09:57 M. pneumoniae (PCR) Not detected (NOT DETECT) 08/22/22 09:57 Parainfluenza 1 (PCR) Not detected (NOT DETECT) 12 09:57 Parainfluenza 2 (PCR) Not detected (NOT DETECT) 12 09:57 Parainfluenza 3 (PCR) Not detected (NOT DETECT) 12 09:57 Parainfluenza 4 (PCR) Not detected (NOT DETECT) 12 09:57 RSV Type A (PCR) Not detected (NOT DETECT) 12 09:57 RSV Type B (PCR) Not detected (NOT DETECT) 12 09:57 Entero/Rhino (PCR) Not detected (NOT DETECT) 12 09:57 SARS-CoV-2 (PCR) Not detected (NOT DETECT) 12 09:57 Discharge Plan Discharge Patient Disposition: Admitted As Inpatient Clinical Impression: Influenza A, Hypoxia, Acute UTI, COPD (chronic obstructive pulmonary disease) Condition: Stable Prescriptions: No Action aspirin 81 mg tablet,delayed release (DR/EC) 81 mg PO QAM docusate sodium [Colace] 100 mg capsule 100 mg PO DAILY PRN (Reason: Constipation) glipizide 5 mg tablet See Rx Instructions .ROUTE .COMPLEX Qty: 45 1RF Dose Instruction: TAKE 1/2 (ONE-HALF) TABLET BY MOUTH ONCE DAILY AT 0800 Rx Instructions: TAKE 1/2 (ONE-HALF) TABLET BY MOUTH ONCE DAILY AT 0800 tamsulosin 0.4 mg capsule See Rx Instructions .ROUTE .COMPLEX Qty: 90 1RF Dose Instruction: Take 1 capsule by mouth once daily Rx Instructions: Take 1 capsule by mouth once daily (DME) blood-glucose meter [Blood Glucose Monitoring] Kit See Rx Instructions .ROUTE .MEDSUPPLY Qty: 1 0RF Rx Instructions: As directed (DME) Blood Glucose Test Strip See Rx Instructions .Route Qty: 50 2RF Rx Instructions: As directed (DME) lancets [Fingerstix Lancets] Misc See Rx Instructions .Route Qty: 100 0RF Rx Instructions: As directed Altace 10 mg capsule 10 mg PO DAILY@0800 Qty: 90 3RF levothyroxine 50 mcg tablet See Rx Instructions .ROUTE .COMPLEX Qty: 90 0RF Dose Instruction: TAKE 1 TABLET BY MOUTH ONCE DAILY IN THE MORNING Rx Instructions: TAKE 1 TABLET BY MOUTH ONCE DAILY IN THE MORNING simvastatin 40 mg tablet See Rx Instructions .ROUTE .COMPLEX Qty: 90 0RF Dose Instruction: TAKE 1 TABLET BY MOUTH ONCE DAILY AT 1999 Rx Instructions: TAKE 1 TABLET BY MOUTH ONCE DAILY AT 1999 alendronate [Fosamax] 70 mg tablet 70 mg PO Q7D Qty: 13 1RF Rx Instructions: ON WEDNESDAY gabapentin 300 mg capsule See Rx Instructions .ROUTE .COMPLEX Qty: 90 1RF Dose Instruction: TAKE 1 CAPSULE BY MOUTH THREE TIMES DAILY AT 0800,1400,1999 Rx Instructions: TAKE 1 CAPSULE BY MOUTH THREE TIMES DAILY AT 0800,1400,1999 clopidogrel 75 mg tablet See Rx Instructions .ROUTE .COMPLEX Qty: 90 0RF Dose Instruction: Take 1 tablet by mouth once daily Rx Instructions: Take 1 tablet by mouth once daily omeprazole 20 mg capsule,delayed release(DR/EC) See Rx Instructions .ROUTE .COMPLEX Qty: 60 0RF Dose Instruction: Take 1 capsule by mouth twice daily Rx Instructions: Take 1 capsule by mouth twice daily hydrocodone-acetaminophen 5-325 mg tablet 1 - 2 tab PO .Q4-6H Qty: 40 0RF Referrals: Dulce Maria Alonzo FNP [Primary Care Provider] - Coding Level of Care Code ED Environmental Construction Engineer for Chg Fwd Exam Comprehensive
[2022-08-22] MEDS: acetaminophen 500 mg Tablet 1000 MG PO (10:07)
[2022-08-22 10:15] LABS: Basophils # 0.1 10^3/uL (0.0-0.1); Basophils % 0.7 %; Eosinophils % 0.3 %; Hemoglobin 15.8 g/dL (11.7-16.6); Lymphocytes # 0.6 10^3/uL (0.8-4.8); Lymphocytes % 8.2 %; Mean Corpuscular HGB Conc 32.2 g/dL (30.0-36.0); Mean Corpuscular Hemoglobin 29.4 pg (28.0-34.0); Mean Corpuscular Volume 91.1 fl (80-94); Mean Platelet Volume 9.6 fL (7.4-10.4); Monocytes # 0.7 10^3/uL (0.2-0.9); Monocytes % 10.1 %; Neutrophils # 5.64 10^3/uL (1.8-7.7); Neutrophils % 80.1 %; Nucleated Red Blood Cells % 0 %; Platelet Count 171 10^3/cmm (130-400); Red Blood Count 5.38 10^6/uL (4.1-5.3); Red Cell Distribution Width 13.7 % (12.1-15.1)
[2022-08-22 10:41] LABS: Glucose Urine UA Norm (Normal); Protein Urine Trace (Negative); Specific Gravity, Urine 1.015 (1.005-1.030); Urine Appearance SL Hazy (CLEAR); Urine Color Yellow (Yellow); pH Urine 6 (5-7)
[2022-08-22 10:42] LABS: Add Urine Microscopic? YES; Bilirubin Urine Neg (Negative); Blood Urine 3+ (Negative); Ketones Urine 1+ (Negative); Leukocyte Esterase Urine 2+ (Negative); Nitrate Urine Negative (Negative); Urobilinogen Urine Norm (Negative)
[2022-08-22 10:43] LABS: Lactic Sepsis W/Reflex 1.7 mmol/L (0.5-2.2)
[2022-08-22 10:44] LABS: Alanine Aminotransferase 8 U/L (0-41); Albumin Level 4.2 g/dL (3.5-5.2); Alkaline Phosphatase 74 U/L (40-130); Anion Gap 19.2 (5-19); Aspartate Amino Transferase 20 U/L (0-40); Blood Urea Nitrogen 10 mg/dL (8-23); Calcium 9.3 mg/dL (8.5-10.5); Carbon Dioxide 23 mmol/L (22-29); Chloride 94 mmol/L (98-107); Globulin 3.4 g/dL (1.3-4.6); Glucose 81 mg/dL (65-115); Osmolality Calculated 272 mOsm/kg (285-295); Potassium 4.2 mmol/L (3.5-5.1); Sodium 132 mmol/L (136-145); Total Bilirubin 0.5 mg/dL (0.15-1.2); Total Protein 7.6 g/dL (6.6-8.7)
[2022-08-22 10:48] LABS: Add Urine Culture? Yes; Bacteria Urine 2+ /hpf; Mucus Urine TRACE /hpf; RBC Urine 15-25 /hpf (0-2); Squamous Epithelial Cell Urine RARE /hpf (0-5); WBC Urine 40-55 /hpf (0-5)
[2022-08-22 10:51] LABS: Procalcitonin 0.06 ng/mL (0-0.5)
[2022-08-22 11:56] LABS: Adenovirus Not Detected (NOT DETECT); Chlamydia Pneumoniae Not Detected (NOT DETECT); Coronavirus 229E,HKU1,NL63,OC4 Not Detected (NOT DETECT); Human Metapneumovirus Not Detected (NOT DETECT); Human Rhinovirus/Enterovirus Not Detected (NOT DETECT); Influenza A Detected (NOT DETECT); Influenza A H1 Not Detected (NOT DETECT); Influenza A H1-2009 Detected (NOT DETECT); Influenza A H3 Not Detected (NOT DETECT); Influenza B Not Detected (NOT DETECT); Mycoplasma Pneumoniae Not Detected (NOT DETECT); Parainfluenza Virus Type 1 Not Detected (NOT DETECT); Parainfluenza Virus Type 2 Not Detected (NOT DETECT); Parainfluenza Virus Type 3 Not Detected (NOT DETECT); Parainfluenza Virus Type 4 Not Detected (NOT DETECT); Respiratory Syncytial Virus A Not Detected (NOT DETECT); Respiratory Syncytial Virus B Not Detected (NOT DETECT); SARS-COV-2 Not Detected (NOT DETECT)
[2022-08-22] MEDS: levofloxacin-dextrose 5 % 500 MG/100 ML PREMIX 100 MG IV (13:23)
[2022-08-22] MEDS: oseltamivir phosphate 75 mg Capsule PO (13:24)
[2022-08-22] MEDS: sodium chloride 0.9% 500 ML IV (13:24)
[2022-08-22] MEDS: HYDROcodone-acetaminophen 5-325 mg Tablet 1 TAB PO ×3 (15:12→21:07)
[2022-08-22] MEDS: gabapentin 300 mg Capsule PO ×2 (15:12→21:07)
[2022-08-22] MEDS: ipratropium-albuterol 3 mL Neb INHALATION ×2 (16:18→21:44)
--- NOTE | 2022-08-22 16:30 | PM.HP ---
Providers/Chief Complaint Admitting Physician: Prasanth Prieto MD Primary Care Provider: ANNE MARIE Beverly Chief Complaint: cough, flu like symptoms History of Present Illness Mauro Espino is a 82 year old male with a past medical history significant for coronary artery disease, COPD, diabetes mellitus, emphysema, GERD, GI bleed, pulmonary embolism, hypothyroidism, peripheral arterial disease, and prior urinary tract infections who presents with cough, fevers, and body aches x2 days. They reports fever as high as 103 yesterday evening. He describes the cough is productive. He also endorses associated shortness of breath, generalized malaise, confusion and fatigue. He denies any chest pain. He denies any recent sick contacts. In the emergency department, he was found to be positive for influenza. He reports a flu shot about 2 months ago. Per the ED provider he was found to have hypoxia. He typically does not wear oxygen at home. Family reportedly unable to take care of him in his current condition. Denies any other alleviating or aggravating factors. Review of Systems Narrative: A complete review of systems was obtained and is negative except as stated in HPI. Medications/Allergies Home Medications Medication Instructions Recorded Confirmed Last Taken Type aspirin 81 mg tablet,delayed 81 mg PO QAM 09/08/19 08/22/22 08/22/22 History release docusate sodium 100 mg capsule 100 mg PO DAILY PRN Constipation 08/27/20 08/22/22 07/09/21 History (Colace) hydrocodone 5 mg-acetaminophen 325 1 - 2 tab PO .Q4-6H #40 tabs 12/03/21 08/22/22 08/21/22 Rx mg tablet glipizide 5 mg tablet See Rx Instructions .Route 12/26/21 08/22/22 08/22/22 Rx .COMPLEX #45 tabs tamsulosin 0.4 mg capsule See Rx Instructions .Route 12/26/21 08/22/22 08/22/22 Rx .COMPLEX #90 caps ramipril 10 mg capsule (Altace) 10 mg PO DAILY@0800 #90 caps 03/23/22 08/22/22 08/22/22 Rx blood sugar diagnostic (Blood #50 ea 04/02/22 08/22/22 Unknown Rx Glucose Test strips) blood-glucose meter (Blood Glucose #1 ea 04/02/22 08/22/22 Unknown Rx Monitoring kit) lancets (Fingerstix Lancets) #100 ea 04/02/22 08/22/22 Unknown Rx levothyroxine 50 mcg tablet See Rx Instructions .Route 04/17/22 08/22/22 08/22/22 Rx .COMPLEX #90 tabs alendronate 70 mg tablet (Fosamax) 70 mg PO Q7D #13 tabs 07/01/22 08/22/22 Unknown Rx simvastatin 40 mg tablet See Rx Instructions .Route 07/01/22 08/22/22 08/21/22 Rx .COMPLEX #90 tabs gabapentin 300 mg capsule See Rx Instructions .Route 07/20/22 08/22/22 08/22/22 Rx .COMPLEX #90 caps clopidogrel 75 mg tablet See Rx Instructions .Route 07/27/22 08/22/22 08/22/22 Rx .COMPLEX #90 tabs omeprazole 20 mg capsule,delayed See Rx Instructions .Route 08/19/22 08/22/22 08/22/22 Rx release .COMPLEX #60 caps Allergies Allergy/AdvReac Type Severity Reaction Status Date / Time No Known Allergies Allergy Verified 06/25/22 10:46 PFSH Acute PFSH: Medical History (Updated 08/22/22 @ 16:55 by Prasanth Prieto MD) Abnormal stress test Above knee amputation of left lower extremity CAD (coronary artery disease) Chest pain Clinical diagnosis of COVID-19 COPD (chronic obstructive pulmonary disease) COVID-19 Cystitis Diabetes Emphysema/COPD Encounter for postoperative care Encounter for postoperative care Encounter for postoperative care Epididymitis Fever Fracture of femoral neck, left GERD (gastroesophageal reflux disease) GERD (gastroesophageal reflux disease) History of GI bleed Hx pulmonary embolism Hyperlipemia, mixed Hypothyroidism -Noted elevated TSH, normal free T4 -Continue levothyroxine Influenza vaccine needed Inguinal nodule On anticoagulant therapy Onychodystrophy Painful orthopaedic hardware Peripheral arterial disease Pneumonia due to COVID-19 virus Pressure ulcer of BKA stump, stage 2 Protracted bacterial bronchitis PVD (peripheral vascular disease) Pyuria Subcapital fracture of left hip Testicular swelling, left Type 2 diabetes mellitus with complication, without long-term current use of insulin -A1c at goal-6.2 -Accuchecks, ISS, hypoglycemia precautions -consistent carb diet as tolerated URI with cough and congestion Urinary retention UTI (urinary tract infection) Surgical History H/O cataract extraction RIGHT History of below-knee amputation of right lower extremity History 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 Family History Mother Diabetes Hypertension Other CAD (coronary artery disease) Myocardial infarction Social History Smoking and tobacco status: former smoker Second hand smoke exposure: No Smoking risk assessment/counseling performed?: No Alcohol intake: never Desire information about alcohol rehabilitation?: No Counseling given: No Desire information about substance/drug rehabilitation?: No Counseling given: No Lives independently: Yes Household members: spouse Marital status: Current occupational status: retired History of recent travel: No Current gender identity: Male Vitals/I&O/Wt Last Vital Signs Temp 99.8 F H 08/22/22 16:19 Pulse 67 08/22/22 16:23 Resp 20 H 08/22/22 16:19 BP 106/73 08/22/22 16:19 Pulse Ox 92 08/22/22 16:19 O2 Del Method 08/22/22 16:18 O2 Flow Rate 2 08/22/22 16:18 Physical Exam Narrative: General: Patient is awake. Frail appearing. Head: Normocephalic. Atraumatic. EOM intact. Neck: No JVD. Cardiovascular: RRR. No gallops. No murmurs. Lungs: Breath sounds are diminished bilateral bases. Mildly coarse with very faint end expiratory wheeze. Cough present. On nasal cannula. Skin: No jaundice. No rashes. Abdomen: Normal bowel sounds, abdomen soft and nontender. Genito Urinary: Genital exam not performed since complaints not related. Rectal: Rectal exam not performed since no symptoms indicated blood loss. Extremities: No cyanosis or clubbing. Bilateral lower extremity amputations. Musculoskeletal: No joint deformity in upper extremities. Neurological: Awake.. No myoclonus. Data 08/22/22 10:00 08/22/22 10:21 A&P Assessment and plan (1) COPD (chronic obstructive pulmonary disease): Acute COPD exacerbation secondary to influenza A Acute hypoxia secondary to above Start Solu-Medrol Scheduled duo nebs Continuous pulse oximetry Supplemental oxygen support (2) Influenza A: Droplet precautions Tamiflu (3) Hypoxia: Management as above (4) Acute UTI: Start Levaquin Follow-up urine culture (5) Diabetes: Sliding-scale insulin correction Avoid hypoglycemia (6) Hyperlipemia, mixed: Continue statin (7) GERD (gastroesophageal reflux disease): Continue pantoprazole Qualifiers: Esophagitis presence: without esophagitis Qualified Code(s): K21.9 - Gastro-esophageal reflux disease without esophagitis (8) Hypothyroidism: Continue levothyroxine Qualifiers: Hypothyroidism type: unspecified Qualified Code(s): E03.9 - Hypothyroidism, unspecified (9) PVD (peripheral vascular disease): History of bilateral lower extremity amputations Continue aspirin and Plavix Continue statin Fall precautions (10) Urinary retention: Continue home Flomax Plan DVT prophylaxis: Lovenox CODE STATUS: DNR?discussed with patient. Had medical decision-making capacity at that time. Attestations Medical Necessity Statement*: Patient with multiple comorbidities presents with multiple complaints, found to have acute hypoxia with acute COPD exacerbation secondary to influenza A as well as urinary tract infection with expected hospitalization to cross 2 midnights. Coding Level of Care Code Acute Relationship Management Lead for [facility] Fwd Diagnoses COPD (chronic obstructive pulmonary disease) J44.9 Influenza A J10.1 Hypoxia R09.02 Acute UTI N39.0 Diabetes E11.9 Hyperlipemia, mixed E78.2 GERD (gastroesophageal reflux disease) K21.9 Esophagitis presence: without esophagitis Hypothyroidism E03.9 Hypothyroidism type: unspecified PVD (peripheral vascular disease) I73.9 Urinary retention R33.9
[2022-08-22] MEDS: enoxaparin 30 mg/0.3 mL Syringe SUBCUT (18:22)
--- NOTE | 2022-08-22 22:41 | PC.NURSE ---
Pt referred to Dr. Hyman for review of hx of DM w/o current order for CBG or s/s insulin at this time. H&P from ER and hospitalist Dr. Prieto states that patient should have CBGs and s/s, however there is no current order. Will await orders/instructions from Dr. Hyman.
[2022-08-23] VITALS (16 sets, daily range): BP systolic 81–102; BP diastolic 49–60; PULSE 50–71; RESP 16–18; TEMP 36.3–36.8; O2SAT 88–92
[2022-08-23] MEDS: ipratropium-albuterol 3 mL Neb INHALATION ×6 (01:06→23:15)
[2022-08-23] MEDS: HYDROcodone-acetaminophen 5-325 mg Tablet 1 TAB PO ×6 (01:07→21:05)
--- NOTE | 2022-08-23 01:12 | PC.NURSE ---
While performing medication administration, RT arrived to complete MMTX for pt. Pt is currently hypoxic @ 83%, RT administered MMTX and titrated O2 to 4 l/m via n/c.
[2022-08-23] MEDS: aspirin 81 mg EC Tablet PO (05:29)
[2022-08-23 06:05] LABS: Basophils % 0.1 %; Eosinophils % 0.1 %; Hematocrit 41.1 % (42.0-52.0); Hemoglobin 13.4 g/dL (11.7-16.6); Lymphocytes # 0.5 10^3/uL (0.8-4.8); Lymphocytes % 5.9 %; Mean Corpuscular HGB Conc 32.6 g/dL (30.0-36.0); Mean Corpuscular Hemoglobin 29.4 pg (28.0-34.0); Mean Corpuscular Volume 90.1 fl (80-94); Mean Platelet Volume 9.1 fL (7.4-10.4); Monocytes # 0.2 10^3/uL (0.2-0.9); Monocytes % 2.8 %; Neutrophils # 7.85 10^3/uL (1.8-7.7); Neutrophils % 90.5 %; Nucleated Red Blood Cells % 0 %; Platelet Count 198 10^3/cmm (130-400); Red Blood Count 4.56 10^6/uL (4.1-5.3); Red Cell Distribution Width 13.6 % (12.1-15.1); White Blood Count 8.7 10^3/uL (4.0-10.0)
[2022-08-23 06:28] LABS: Albumin Level 3.7 g/dL (3.5-5.2); Anion Gap 21.6 (5-19); Blood Urea Nitrogen 25 mg/dL (8-23); Calcium 8.5 mg/dL (8.5-10.5); Carbon Dioxide 20 mmol/L (22-29); Chloride 93 mmol/L (98-107); Glucose 178 mg/dL (65-115); Magnesium 2.1 mg/dL (1.7-2.3); Phosphorus 4.3 mg/dL (2.5-4.5); Potassium 3.6 mmol/L (3.5-5.1); Sodium 131 mmol/L (136-145)
[2022-08-23] MEDS: lisinopril 20 mg Tablet PO (09:19)
[2022-08-23] MEDS: clopidogrel 75 mg Tablet PO (09:19)
[2022-08-23] MEDS: gabapentin 300 mg Capsule PO ×3 (09:19→21:05)
[2022-08-23] MEDS: atorvastatin 40 mg Tablet PO (09:19)
[2022-08-23] MEDS: tamsulosin 0.4 mg Capsule PO (09:20)
[2022-08-23] MEDS: levofloxacin-dextrose 5 % 500 MG/100 ML PREMIX 100 MG IV (09:20)
[2022-08-23] MEDS: pantoprazole DR 40 mg Tablet PO (09:20)
[2022-08-23] MEDS: levothyroxine 50 mcg Tablet PO (09:21)
[2022-08-23] MEDS: oseltamivir phosphate 75 mg Capsule PO ×2 (09:47→18:26)
--- NOTE | 2022-08-23 10:55 | P.PN_ITS ---
Subjective Subjective: Patient endorses cough and shortness of breath. Endorses generalized malaise and fatigue. Denies chest pain, nauea, or emesis. Medications: Reviewed: Yes Vitals/I&O/Wt Last Vital Signs Temp 97.9 F 08/23/22 07:57 Pulse 54 L 08/23/22 09:10 Resp 18 08/23/22 09:08 BP 90/52 08/23/22 07:57 Pulse Ox 92 08/23/22 09:08 O2 Del Method 08/23/22 09:08 O2 Flow Rate 4.5 08/23/22 09:08 08/22/22 08/23/22 08/23/22 22:59 06:59 14:59 Intake Total 600 / 1200 460 / 460 Output Total 200 / 200 Balance 600 / 1200 -200 / 1000 460 / 460 Weight last 48 hrs Weight 63.866 kg Physical Exam Narrative: General: Patient is awake. Frail appearing. Head: Normocephalic. Atraumatic. EOM intact. Neck: No JVD. Cardiovascular: RRR. No gallops. No murmurs. Lungs: Breath sounds are diminished bilateral bases. Very faint end expiratory wheeze. Cough present. On nasal cannula. Skin: No jaundice. No rashes. Abdomen: Normal bowel sounds, abdomen soft and nontender. Genito Urinary: Genital exam not performed since complaints not related. Rectal: Rectal exam not performed since no symptoms indicated blood loss. Extremities: No cyanosis or clubbing. Bilateral lower extremity amputations. Musculoskeletal: No joint deformity in upper extremities. Neurological: Awake.. No myoclonus. Data 08/23/22 05:55 08/23/22 05:55 Micro: Microbiology 08/22/22 10:32 Urine Culture - Preliminary Urine,Clean Catch Gram Negative Rods A&P Assessment and plan (1) COPD (chronic obstructive pulmonary disease): Acute COPD exacerbation secondary to influenza A Acute hypoxia secondary to above Continue Solu-Medrol Scheduled duo nebs Continuous pulse oximetry Supplemental oxygen support (2) Influenza A: Droplet precautions Continue Tamiflu (3) Hypoxia: Management as above (4) Acute UTI: Urine culture prelim with gram negative rods History of Pseudomonal UTI Continue Levaquin Follow-up urine culture (5) Metabolic acidosis: Likely secondary to infection (6) Diabetes: Sliding-scale insulin correction Avoid hypoglycemia (7) Hyperlipemia, mixed: Continue statin (8) GERD (gastroesophageal reflux disease): Continue pantoprazole Qualifiers: Esophagitis presence: without esophagitis Qualified Code(s): K21.9 - Gastro-esophageal reflux disease without esophagitis (9) Hypothyroidism: Continue levothyroxine Qualifiers: Hypothyroidism type: unspecified Qualified Code(s): E03.9 - Hypothyroidism, unspecified (10) PVD (peripheral vascular disease): History of bilateral lower extremity amputations Continue aspirin and Plavix Continue statin Fall precautions (11) Urinary retention: Continue home Flomax Plan DVT prophylaxis: Lovenox CODE STATUS: DNR Attestations Medical Necessity Statement*: Patient with multiple comorbidities presents with multiple complaints, found to have acute hypoxia with acute COPD exacerbation secondary to influenza A as well as urinary tract infection with expected hospitalization to cross 2 midnights. Coding Level of Care Code Acute Assembly Machine Tender for g Fwd Diagnoses COPD (chronic obstructive pulmonary disease) J44.9 Influenza A J10.1 Hypoxia R09.02 Acute UTI N39.0 Metabolic acidosis E87.20 Diabetes E11.9 Hyperlipemia, mixed E78.2 GERD (gastroesophageal reflux disease) K21.9 Esophagitis presence: without esophagitis Hypothyroidism E03.9 Hypothyroidism type: unspecified PVD (peripheral vascular disease) I73.9 Urinary retention R33.9
[2022-08-23 11:29] LABS: Glucose Point of Care 238 mg/dL (70-110)
[2022-08-23] MEDS: insulin lispro 100 unit/1 mL SUBCUT ×3 (12:42→21:17)
[2022-08-23] MEDS: enoxaparin 30 mg/0.3 mL Syringe SUBCUT (18:00)
[2022-08-23 18:09] LABS: Glucose Point of Care 157 mg/dL (70-110)
[2022-08-23 21:07] LABS: Glucose Point of Care 200 mg/dL (70-110)
[2022-08-24] VITALS (54 sets, daily range): BP systolic 81–119; BP diastolic 43–68; PULSE 40–132; RESP 15–24; TEMP 36.5–37; O2SAT 78–94
--- NOTE | 2022-08-24 00:36 | PC.NURSE ---
Upon assessing pt it was noted that con't pulse ox reading 85-86% on 5 l/m via n/c. O2 titrated to 6 l/m via n/c, O2 sat 90-91% at this time. Pt is awake watching t.v., and denies pain.
[2022-08-24] MEDS: HYDROcodone-acetaminophen 5-325 mg Tablet 1 TAB PO ×5 (01:37→17:25)
[2022-08-24 05:45] LABS: Basophils % 0.1 %; Hematocrit 39.4 % (42.0-52.0); Hemoglobin 13.1 g/dL (11.7-16.6); Lymphocytes # 0.6 10^3/uL (0.8-4.8); Lymphocytes % 2.8 %; Mean Corpuscular HGB Conc 33.2 g/dL (30.0-36.0); Mean Corpuscular Hemoglobin 29.2 pg (28.0-34.0); Mean Corpuscular Volume 87.9 fl (80-94); Mean Platelet Volume 9.7 fL (7.4-10.4); Monocytes # 0.9 10^3/uL (0.2-0.9); Neutrophils # 19.65 10^3/uL (1.8-7.7); Neutrophils % 91.8 %; Nucleated Red Blood Cells % 0 %; Platelet Count 220 10^3/cmm (130-400); Red Blood Count 4.48 10^6/uL (4.1-5.3); Red Cell Distribution Width 13.7 % (12.1-15.1); White Blood Count 21.4 10^3/uL (4.0-10.0)
[2022-08-24] MEDS: aspirin 81 mg EC Tablet PO (05:52)
[2022-08-24 06:18] LABS: Albumin Level 3.4 g/dL (3.5-5.2); Anion Gap 17.9 (5-19); Blood Urea Nitrogen 53 mg/dL (8-23); Calcium 8.5 mg/dL (8.5-10.5); Carbon Dioxide 19 mmol/L (22-29); Chloride 94 mmol/L (98-107); Glucose 164 mg/dL (65-115); Magnesium 2.1 mg/dL (1.7-2.3); Phosphorus 5.5 mg/dL (2.5-4.5); Potassium 3.9 mmol/L (3.5-5.1); Sodium 127 mmol/L (136-145)
[2022-08-24 06:21] LABS: Glucose Point of Care 183 mg/dL (70-110)
--- NOTE | 2022-08-24 06:28 | PC.NURSE ---
Referred pt to Dr. Hyman for review of BMP result w/NA level of 127. Awaiting orders.
--- NOTE | 2022-08-24 06:41 | PC.NURSE ---
NNO received from physician at this time.
[2022-08-24] MEDS: ipratropium-albuterol 3 mL Neb INHALATION ×5 (08:25→23:36)
[2022-08-24] MEDS: insulin lispro 100 unit/1 mL SUBCUT ×4 (08:28→21:36)
[2022-08-24] MEDS: pantoprazole DR 40 mg Tablet PO (08:29)
[2022-08-24] MEDS: atorvastatin 40 mg Tablet PO (08:29)
[2022-08-24] MEDS: gabapentin 300 mg Capsule PO ×3 (08:29→21:36)
[2022-08-24] MEDS: clopidogrel 75 mg Tablet PO (08:29)
[2022-08-24] MEDS: tamsulosin 0.4 mg Capsule PO (08:29)
[2022-08-24] MEDS: oseltamivir phosphate 75 mg Capsule PO (08:29)
[2022-08-24] MEDS: levothyroxine 50 mcg Tablet PO (08:29)
[2022-08-24] MEDS: levofloxacin-dextrose 5 % 500 MG/100 ML PREMIX 100 MG IV (08:30)
--- NOTE | 2022-08-24 09:59 | US_ITS ---
WS: [id number] RENAL ULTRASOUND HISTORY: acute renal injury COMPARISON: None available. TECHNIQUE: 2-D and color Doppler imaging of the kidney submitted. Right kidney: 10.1 cm x 4.0 cm x 3.5 cm. Normal echogenicity with no hydronephrosis or mass. Left kidney: 10.5 cm x 3.9 cm x 4.3 cm. Normal echogenicity with no hydronephrosis or mass. Aorta: Normal. Urinary Bladder: Mildly distended urinary bladder. Prostate gland is enlarged and heterogeneous measu ring 6.1 x 6.8 x 4.6 cm. US/US renal BI* [id number] IMPRESSION: 1. No renal obstruction or mass. 2. Markedly enlarged prostate.
--- NOTE | 2022-08-24 09:59 | CTR_ITS ---
PROCEDURE INFORMATION: Exam: CT Chest Without Contrast; Diagnostic Exam date and time: 08/24/2022 2:30 PM Age: 82 years old Clinical indication: Dyspnea; Prior surgery; Surgery date: 6+ months; Surgery type: Open heart; Additional info: Pna TECHNIQUE: Imaging protocol: Diagnostic computed tomography of the chest without contrast. Radiation optimization: All CT scans at this facility use at least one of these dose optimization techniques: automated exposure control; mA and/or kV adjustment per patient size (includes targeted exams where dose is matched to clinical indication); or iterative reconstruction. COMPARISON: CT angio chest PE protcl [id number] 09/18/2020 12:25 PM RADIATION DOSE METRICS: Total DLP (mGy-cm): 426.69 FINDINGS: Lungs: Moderate pulmonary emphysema similar to previous exam. Mild central peribronchial thickening , increased versus prior exam. Ill-defined patchy opacity and mucoid impaction in the left lower lobe, new since prior exam suggesting developing bronchitis/pneumonia. Linear scarring-atelectasis posterior right lung base is noted. No ground-glass opacity. Pleural spaces: Unremarkable. No pneumothorax. No pleural effusion. Heart: See Coronary arteries finding. Coronary arteries: CABG changes and coronary calcification. Normal heart size. Lymph nodes: No enlarged lymph nodes. Vasculature: Unremarkable. No aortic aneurysm. Diaphragm: Probable small hiatal hernia. Small amount of fluid in the thoracic esophagus suggesting gastroesophageal reflux. Gallbladder and bile ducts: Cholelithiasis. Bones/joints: Old healed left rib fractures Soft tissues: No acute findings. CT/CT chest [facility] [id number] IMPRESSION: 1. Comparison CT 08/24/2022. Interval development of mucoid impaction/peribronchial thickening and ill-defined patchy opacities in the left lung base suggesting developing bronchitis/pneumonia. 2. Moderate pulmonary similar to previous exam. 3. Coronary calcification and esophageal findings as above. 4. Cholelithiasis.
--- NOTE | 2022-08-24 10:27 | ECG_ITS ---
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 Measurements Intervals [place] Rate: 75 P: 76 NE: 161 QRS: -53 QRSD: 134 T: 92 QT: 402 QTc: 451 Interpretive Statements SINUS RHYTHM WITH FREQUENT VENTRICULAR PREMATURE COMPLEXES LEFT AXIS DEVIATION [QRS AXIS < -30] INTRAVENTRICULAR CONDUCTION DELAY [130+ ms QRS DURATION] SEPTAL MYOCARDIAL INFARCTION , PROBABLY OLD [40+ ms Q WAVE IN V1/V2] Compared to ECG 12/03/2021 12:47:00 Myocardial infarct finding now present Electronically Signed On 08-24-2022 14:59:41 LOFT WORKER HEAD by Anmol Spicer M.D. [id number]
[2022-08-24 10:32] LABS: ABG PCO2 32.8 mmHg (35-45); ABG PH Result 7.38 (7.35-7.45); Arterial Blood Gas Hematocrit 39.5 % (42-52); Base Excess ABG -4.8 mmol/L (-2.0-2.0); Blood Gas Allen Test Pos; Blood Gas Operator Identificat MONRO; Blood Gas Sample Site Brachial, right; Blood Gas Sample Type Arterial; HCO3 ABG 19.5 mmol/L (22-26); Oxygen Device NC; PO2 ABG 53.5 mmHg (80.0-100.0)
[2022-08-24] MEDS: sodium chloride 0.9% 1,000 ML 50 ML IV (10:51)
[2022-08-24] MEDS: cefepime 2,000 MG in sodium chloride 0.9% (plus) 50 ML 100 MG IV ×2 (10:51→23:56)
[2022-08-24 11:39] LABS: Glucose Point of Care 192 mg/dL (70-110)
[2022-08-24] MEDS: vancomycin 1,000 MG in sodium chloride 0.9% 250 ML 250 MG IV (11:42)
--- NOTE | 2022-08-24 11:59 | ECG_ITS ---
[facility] Test Date: 2022-08-24 Pat Name: Mauro Espino Department: Room: 262 Gender: Male Energy Professional: : 1940 Requested By: Jose R Hackett Order Number: [id number] Alexys MD: Anmol Spicer M.D. Measurements Intervals [place] Rate: 91 P: 65 MD: 152 QRS: -48 QRSD: 137 T: 78 QT: 380 QTc: 468 Interpretive Statements SINUS RHYTHM WITH FREQUENT VENTRICULAR PREMATURE COMPLEXES LEFT AXIS DEVIATION [QRS AXIS < -30] INTRAVENTRICULAR CONDUCTION DELAY [130+ ms QRS DURATION] ANTEROSEPTAL MYOCARDIAL INFARCTION , OF INDETERMINATE AGE [40+ ms Q WAVE IN V1-V4] Compared to ECG 08/24/2022 10:27:46 No significant changes Electronically Signed On 08-24-2022 15:03:00 COLLECTION TELLER by Anmol Spicer M.D. [email or web address] [email or web address] issaquena community hospitalIntercytex Groupselect medical [facility] shaw.SymbioCellTech/store/OM/[id number]
[2022-08-24 12:18] LABS: Troponin(5th) Baseline 20 ng/L (0-15)
[2022-08-24 12:23] LABS: NT Pro B Type Natriuretic Pept 1595 pg/mL (0-450); Procalcitonin 0.41 ng/mL (0-0.5)
[2022-08-24 13:02] LABS: Adenovirus Not Detected (NOT DETECT); Chlamydia Pneumoniae Not Detected (NOT DETECT); Coronavirus 229E,HKU1,NL63,OC4 Not Detected (NOT DETECT); Human Metapneumovirus Not Detected (NOT DETECT); Human Rhinovirus/Enterovirus Not Detected (NOT DETECT); Influenza A Detected (NOT DETECT); Influenza A H1 Not Detected (NOT DETECT); Influenza A H1-2009 Detected (NOT DETECT); Influenza A H3 Not Detected (NOT DETECT); Influenza B Not Detected (NOT DETECT); Mycoplasma Pneumoniae Not Detected (NOT DETECT); Parainfluenza Virus Type 1 Not Detected (NOT DETECT); Parainfluenza Virus Type 2 Not Detected (NOT DETECT); Parainfluenza Virus Type 3 Not Detected (NOT DETECT); Parainfluenza Virus Type 4 Not Detected (NOT DETECT); Respiratory Syncytial Virus A Not Detected (NOT DETECT); Respiratory Syncytial Virus B Not Detected (NOT DETECT); SARS-COV-2 Not Detected (NOT DETECT)
[2022-08-24 13:13] LABS: Influenza A Detected (NOT DETECT); Influenza A H1 Not Detected (NOT DETECT); Influenza A H1-2009 Detected (NOT DETECT); Influenza A H3 Not Detected (NOT DETECT); Influenza B Not Detected (NOT DETECT); Results from GEN
[2022-08-24] MEDS: midodrine 5 mg TABLET 10 MG PO ×2 (13:21→21:36)
[2022-08-24] MEDS: sodium chloride 0.9% 500 ML IV (13:22)
[2022-08-24 14:00] LABS: Troponin 5 2HR 19.21 ng/L (0-15)
[2022-08-24 14:07] LABS: Troponin 5 2HR Delta -0.79 ABS# (0-10)
--- NOTE | 2022-08-24 15:00 | PM.PN ---
Subjective Subjective: Patient was seen this morning, currently blood pressures are soft, he is resting comfortably in bed, on 6 L, he is wheezing in all lung [place], he denies any shortness of breath, no wheezing, he has a history of smoking, he continues to cough, no fevers, no chills, no respiratory distress Vitals/I&O/Wt Last Vital Signs Temp 97.7 F 08/24/22 11:43 Pulse 80 08/24/22 14:50 Resp 22 H 08/24/22 14:50 BP 111/58 08/24/22 14:50 Pulse Ox 89 L 08/24/22 14:50 O2 Del Method 08/24/22 13:47 O2 Flow Rate 7 08/24/22 13:47 08/24/22 08/24/22 08/24/22 06:59 14:59 22:59 Intake Total 1380 / 1380 Output Total 300 / 300 250 / 250 Balance -300 / 760 1130 / 1130 Weight last 48 hrs Weight 63.866 kg Physical Exam Const: COMMON NORMALS: no acute distress and patient oriented x3 Resp: COMMON NORMALS: normal respiratory effort, No retractions and No use of accessory muscles AUSCULTATION: crackles and wheezes Cardio: COMMON NORMALS: regular rate, regular rhythm, S1 normal heart sound present and S2 normal heart sound present RATE: regular rate RHYTHM: regular rhythm HEART SOUNDS: S1 normal heart sound present and S2 normal heart sound present GI: COMMON NORMALS: Normal to inspection, nondistended, normoactive bowel sounds present and non-tender Extremity: COMMON NORMALS: no pedal edema Neuro: COMMON NORMALS: patient oriented x3 Psych: COMMON NORMALS: mental status grossly normal Urinary Catheter Management: Collins: Cath Placed During This Visit: yes Urinary Catheter Date of Insertion: 08/24/22 Urinary Catheter Time of Insertion: 13:47 Data 08/24/22 05:23 08/24/22 05:36 Micro: Microbiology 08/24/22 11:30 Blood Culture - Preliminary Blood SPECIMEN COLLECTED 08/24/22 11:25 Blood Culture - Preliminary Blood SPECIMEN COLLECTED 08/22/22 10:32 Urine Culture - Final Urine,Clean Catch Pseudomonas aeruginosa A&P Assessment and plan (1) Secondary bacterial pneumonia: (2) Acute respiratory failure with hypoxia: (3) Influenza A: (4) PVD (peripheral vascular disease): (5) Hypertension: (6) Hypothyroidism: Qualifiers: Hypothyroidism type: unspecified Qualified Code(s): E03.9 - Hypothyroidism, unspecified (7) GERD (gastroesophageal reflux disease): Qualifiers: Esophagitis presence: without esophagitis Qualified Code(s): K21.9 - Gastro-esophageal reflux disease without esophagitis (8) Hyperlipemia, mixed: (9) COPD (chronic obstructive pulmonary disease): (10) Diabetes: (11) Sepsis: (12) Lactic acidosis: Plan Acute hypoxic respiratory failure -Secondary to influenza A -Secondary bacterial pneumonia -COPD exacerbation -Interval worsening of leukocytosis, increased oxygen requirements to 6 L, ABG showing hypoxic respiratory failure -1. Comparison CT 08/24/2022. Interval development of mucoid impaction/peribronchial thickening and ill-defined patchy opacities in the left lung base suggesting developing bronchitis/pneumonia. 2. Moderate pulmonary similar to previous exam. 3. Coronary calcification and esophageal findings as above. 4. Cholelithiasis. Plan -Moved to ICU -Fluid boluses, LR or normal saline maintain MAP around 65 -Midodrine 10 every 8 hours -Start Levophed if needed -Broaden antibiotic coverage to vancomycin, cefepime -MRSA nares PCR, follow blood cultures, sputum cultures, repeat COVID PCR -Given creatinine 1.7, adjust Tamiflu dose to 30 every 12 hours, will have to order through outpatient pharmacy -Monitor respiratory status closely -BiPAP if needed -Lovenox for DVT prophylaxis -DNR Lactic acidosis, sepsis secondary to pneumonia, influenza A, Acute kidney injury on CKD, likely secondary to sepsis, IV fluids, Place Collins catheter COPD exacerbation as above Peripheral vascular disease continue aspirin, Plavix Attestations Medical Necessity Statement*: Patient requires hospitalization, inpatient, greater than 2 midnights, for acute hypoxic respiratory failure, influenza A, secondary bacterial pneumonia, sepsis, lactic acidosis, COPD exacerbation Coding Level of Care Code Acute Manager Utilization for [facility] Fwd Exam Detailed Diagnoses Secondary bacterial pneumonia J15.9 Acute respiratory failure with hypoxia J96.01 Influenza A J10.1 PVD (peripheral vascular disease) I73.9 Hypertension I10 Hypothyroidism E03.9 Hypothyroidism type: unspecified GERD (gastroesophageal reflux disease) K21.9 Esophagitis presence: without esophagitis Hyperlipemia, mixed E78.2 COPD (chronic obstructive pulmonary disease) J44.9 Diabetes E11.9 Sepsis A41.9 Lactic acidosis E87.20
--- NOTE | 2022-08-24 15:59 | ECG_ITS ---
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 Measurements Intervals [place] Rate: 74 P: 78 TN: 166 QRS: -56 QRSD: 130 T: 75 QT: 394 QTc: 438 Interpretive Statements SINUS RHYTHM WITH FREQUENT VENTRICULAR PREMATURE COMPLEXES POSSIBLE RIGHT VENTRICULAR CONDUCTION DELAY [RSR (QR) IN V1/V2] LEFT ANTERIOR FASCICULAR BLOCK [QRS AXIS <= -45, QR IN I, RS IN II] ANTEROSEPTAL MYOCARDIAL INFARCTION , OF INDETERMINATE AGE [40+ ms Q WAVE IN V1-V4] Compared to ECG 08/24/2022 12:45:47 Left anterior fascicular block now present Left-axis deviation no longer present Intraventricular conduction delay no longer present Myocardial infarct finding still present Electronically Signed On 08-26-2022 0:08:55 BOOK SEWER by Jeffery Wilkes M.D. [email or web address], IP.OnTrak Softwaresil[facility].CallResto/store/[id number]
--- NOTE | 2022-08-24 17:02 | ECG_ITS ---
[facility] Test Date: 2022-08-24 Pat Name: Mauro Espino Department: Room: [facility] Gender: Male Conference Services Manager: : 1940 Requested By: Jose R Hackett Order Number: [id number] Alexys MD: Jeffery Wilkes M.D. Measurements Intervals [place] Rate: 79 P: 73 RI: 170 QRS: -55 QRSD: 120 T: 82 QT: 389 QTc: 447 Interpretive Statements SINUS RHYTHM WITH FREQUENT VENTRICULAR PREMATURE COMPLEXES LEFT AXIS DEVIATION [QRS AXIS < -30] MODERATE INTRAVENTRICULAR CONDUCTION DELAY [110+ ms QRS DURATION] Compared to ECG 08/24/2022 15:56:36 Left-axis deviation now present Intraventricular conduction delay now present Left anterior fascicular block no longer present Myocardial infarct finding no longer present Electronically Signed On 08-25-2022 23:55:22 FOUR CORNER FORMER MACHINE OPERATOR by Jeffery Wilkes M.D. [id number]
[2022-08-24 17:10] LABS: Glucose Point of Care 256 mg/dL (70-110)
[2022-08-24] MEDS: enoxaparin 30 mg/0.3 mL Syringe SUBCUT (17:25)
[2022-08-24 17:33] LABS: Troponin 5 6HR 15.86 ng/L (0-15)
[2022-08-24 17:35] LABS: Troponin 5 6HR Delta -4.14 ng/L (0-12)
[2022-08-24] MEDS: budesonide 0.5 mg/2 mL Neb INHALATION (20:07)
[2022-08-24 21:34] LABS: Glucose Point of Care 253 mg/dL (70-110)
[2022-08-25] VITALS (102 sets, daily range): BP systolic 86–144; BP diastolic 44–100; PULSE 52–96; RESP 11–35; TEMP 36.1–36.4; O2SAT 81–99
[2022-08-25] MEDS: sodium chloride 0.9% 1,000 ML 50 ML IV (00:51)
[2022-08-25] MEDS: ipratropium-albuterol 3 mL Neb INHALATION ×6 (03:15→23:19)
[2022-08-25 03:17] LABS: Basophils % 0.1 %; Hematocrit 39.1 % (42.0-52.0); Lymphocytes # 0.3 10^3/uL (0.8-4.8); Lymphocytes % 2.3 %; Mean Corpuscular HGB Conc 33.2 g/dL (30.0-36.0); Mean Corpuscular Hemoglobin 29.4 pg (28.0-34.0); Mean Corpuscular Volume 88.5 fl (80-94); Mean Platelet Volume 9.6 fL (7.4-10.4); Monocytes # 0.5 10^3/uL (0.2-0.9); Monocytes % 3.8 %; Neutrophils # 13.16 10^3/uL (1.8-7.7); Nucleated Red Blood Cells % 0 %; Platelet Count 208 10^3/cmm (130-400); Red Blood Count 4.42 10^6/uL (4.1-5.3); Red Cell Distribution Width 14.1 % (12.1-15.1); White Blood Count 14.2 10^3/uL (4.0-10.0)
[2022-08-25 03:31] LABS: Alanine Aminotransferase 9 U/L (0-41); Albumin Level 2.9 g/dL (3.5-5.2); Alkaline Phosphatase 65 U/L (40-130); Anion Gap 15.1 (5-19); Aspartate Amino Transferase 21 U/L (0-40); Blood Urea Nitrogen 42 mg/dL (8-23); C Reactive Protein 62.8 mg/L (0.0-4.9); Calcium 8.2 mg/dL (8.5-10.5); Carbon Dioxide 19 mmol/L (22-29); Chloride 103 mmol/L (98-107); Globulin 2.7 g/dL (1.3-4.6); Glucose 205 mg/dL (65-115); Magnesium 1.9 mg/dL (1.7-2.3); Osmolality Calculated 292 mOsm/kg (285-295); Phosphorus 2.6 mg/dL (2.5-4.5); Potassium 4.1 mmol/L (3.5-5.1); Sodium 133 mmol/L (136-145); Total Bilirubin 0.2 mg/dL (0.15-1.2); Total Protein 5.6 g/dL (6.6-8.7)
[2022-08-25 03:47] LABS: NT Pro B Type Natriuretic Pept 1448 pg/mL (0-450)
[2022-08-25] MEDS: aspirin 81 mg EC Tablet PO (05:47)
[2022-08-25] MEDS: midodrine 5 mg TABLET 10 MG PO ×3 (05:47→21:34)
--- NOTE | 2022-08-25 07:00 | XRR_ITS ---
PROCEDURE INFORMATION: Exam: XR Chest Exam date and time: 08/25/2022 7:04 AM Age: 82 years old Clinical indication: Shortness of breath; Prior surgery; Surgery type: Open heart; Patient HX: Pneumonia follow up; Additional info: SOB TECHNIQUE: Imaging protocol: Radiologic exam of the chest. Views: 1 view. COMPARISON: CT chest con [id number] 08/24/2022 2:30 PM FINDINGS: Lungs: There is bibasilar atelectasis more prominently on the left side. This has increased since the previous chest x-ray. Pleural spaces: Unremarkable. No pleural effusion. No pneumothorax. Heart/Mediastinum: Unremarkable. No cardiomegaly. Bones/joints: Unremarkable. XR/XR chest 1V portable [id number] IMPRESSION: Worsening basilar atelectasis especially on the left side.
[2022-08-25] MEDS: budesonide 0.5 mg/2 mL Neb INHALATION ×2 (08:15→19:33)
[2022-08-25 08:24] LABS: Glucose Point of Care 158 mg/dL (70-110)
[2022-08-25] MEDS: gabapentin 300 mg Capsule PO ×3 (08:25→21:34)
[2022-08-25] MEDS: pantoprazole DR 40 mg Tablet PO (08:25)
[2022-08-25] MEDS: atorvastatin 40 mg Tablet PO (08:25)
[2022-08-25] MEDS: tamsulosin 0.4 mg Capsule PO (08:25)
[2022-08-25] MEDS: clopidogrel 75 mg Tablet PO (08:25)
[2022-08-25] MEDS: insulin lispro 100 unit/1 mL SUBCUT ×4 (08:26→21:35)
[2022-08-25] MEDS: levothyroxine 50 mcg Tablet PO (08:26)
[2022-08-25 11:22] LABS: Glucose Point of Care 272 mg/dL (70-110)
[2022-08-25] MEDS: cefepime 2,000 MG in sodium chloride 0.9% (plus) 50 ML 100 MG IV ×2 (11:34→23:14)
[2022-08-25] MEDS: vancomycin 1,000 MG in sodium chloride 0.9% 250 ML 250 MG IV (11:34)
--- NOTE | 2022-08-25 12:56 | PC.SOCIAL ---
Pg 2 IMM Explained to pt Pg 2 IMM. No questions voiced. Provided pt a copy. Initialed, dated, & timed a copy & placed in chart.
--- NOTE | 2022-08-25 13:03 | P.PN_ITS ---
Subjective Subjective: Patient was seen this morning, he is resting comfortably, no evidence of respiratory stress he can speak full sentences he is on 8 L, he follows all commands, he tells me that he feels a bit better but he really wants to go home Vitals/I&O/Wt Last Vital Signs Temp 96.9 F L 08/25/22 08:30 Pulse 89 08/25/22 12:00 Resp 18 08/25/22 12:00 BP 130/66 08/25/22 12:00 Pulse Ox 92 08/25/22 12:00 O2 Del Method 08/25/22 12:00 O2 Flow Rate 4 08/25/22 12:00 08/24/22 08/25/22 08/25/22 22:59 06:59 14:59 Intake Total 640 / 2020 1850 / 3870 540 / 540 Output Total 925 / 1175 1700 / 2875 Balance -285 / 845 150 / 995 540 / 540 Physical Exam Const: COMMON NORMALS: no acute distress and patient oriented x3 Resp: COMMON NORMALS: normal respiratory effort, No retractions, No use of accessory muscles and clear to auscultation bilaterally AUSCULTATION: clear to auscultation bilaterally Cardio: COMMON NORMALS: regular rate, regular rhythm, S1 normal heart sound present and S2 normal heart sound present RATE: regular rate RHYTHM: regular rhythm HEART SOUNDS: S1 normal heart sound present and S2 normal heart sound present GI: COMMON NORMALS: Normal to inspection, nondistended, normoactive bowel sounds present and non-tender Extremity: COMMON NORMALS: no pedal edema Neuro: COMMON NORMALS: patient oriented x3 Psych: COMMON NORMALS: mental status grossly normal Urinary Catheter Management: Collins: Cath Placed During This Visit: yes Reason for Continuing Indwelling Catheter: Accurate Measurement of Urinary Output in Critically Ill Patients Urinary Catheter Date of Insertion: 08/24/22 Urinary Catheter Time of Insertion: 13:47 Data 08/25/22 02:35 08/25/22 02:35 Micro: Microbiology 08/24/22 11:30 Blood Culture - Preliminary Blood NEGATIVE TO DATE 08/24/22 11:25 Blood Culture - Preliminary Blood NEGATIVE TO DATE 08/24/22 21:50 Gram Stain - Final Sputum - Expectorated Sputum 08/22/22 10:32 Urine Culture - Final Urine,Clean Catch Pseudomonas aeruginosa A&P Assessment and plan (1) Secondary bacterial pneumonia: (2) Acute respiratory failure with hypoxia: (3) Influenza A: (4) PVD (peripheral vascular disease): (5) Hypertension: (6) Hypothyroidism: Qualifiers: Hypothyroidism type: unspecified Qualified Code(s): E03.9 - Hyp othyroidism, unspecified (7) GERD (gastroesophageal reflux disease): Qualifiers: Esophagitis presence: without esophagitis Qualified Code(s): K21.9 - Gastro-esophageal reflux disease without esophagitis (8) Hyperlipemia, mixed: (9) COPD (chronic obstructive pulmonary disease): (10) Diabetes: (11) Sepsis: (12) Lactic acidosis: Plan Acute hypoxic respiratory failure -Secondary to influenza A -Secondary bacterial pneumonia -COPD exacerbation -Interval worsening of leukocytosis, increased oxygen requirements to 6 L, ABG showing hypoxic respiratory failure -1. Comparison CT 08/24/2022. Interval development of mucoid impaction/peribronchial thickening and ill-defined patchy opacities in the left lung base suggesting developing bronchitis/pneumonia. 2. Moderate pulmonary similar to previous exam. 3. Coronary calcification and esophageal findings as above. 4. Cholelithiasis. Plan -Moved to ICU -Fluid boluses, LR or normal saline maintain MAP around 65 -Midodrine 10 every 8 hours -Broaden antibiotic coverage to vancomycin, cefepime -MRSA nares PCR, follow blood cultures, sputum cultures, repeat COVID PCR -Given creatinine 1.0, continue to monitor creatinine -Continue Tamiflu -Monitor respiratory status closely -BiPAP if needed -Lovenox for DVT prophylaxis -DNR Lactic acidosis, sepsis secondary to pneumonia, influenza A, continue to monitor Acute kidney injury on CKD, likely secondary to sepsis, Place Collins catheter, hold off on IV fluids COPD exacerbation as above Peripheral vascular disease continue aspirin, Plavix UTI, Pseudomonas aeruginosa, continue cefepime Plan for today continue antibiotics, continue Tamiflu, PT OT, decrease oxygen therapy, will consider Lasix Attestations Medical Necessity Statement*: Patient requires hospitalization for acute respiratory failure Coding Level of Care Code Acute Moisture Meter Operator for [facility] Fwd Diagnoses Secondary bacterial pneumonia J15.9 Acute respiratory failure with hypoxia J96.01 Influenza A J10.1 PVD (peripheral vascular disease) I73.9 Hypertension I10 Hypothyroidism E03.9 Hypothyroidism type: unspecified GERD (gastroesophageal reflux disease) K21.9 Esophagitis presence: without esophagitis Hyperlipemia, mixed E78.2 COPD (chronic obstructive pulmonary disease) J44.9 Diabetes E11.9 Sepsis A41.9 Lactic acidosis E87.20
[2022-08-25 17:29] LABS: Glucose Point of Care 186 mg/dL (70-110)
[2022-08-25] MEDS: FUROsemide 10 mg/mL SDV 2mL 20 MG IVP (17:30)
[2022-08-25] MEDS: enoxaparin 30 mg/0.3 mL Syringe SUBCUT (17:30)
[2022-08-25 21:30] LABS: Glucose Point of Care 231 mg/dL (70-110)
[2022-08-25] MEDS: insulin glargine 100 units/1 mL 5 UNIT SUBCUT (21:34)
[2022-08-26] VITALS (87 sets, daily range): BP systolic 102–149; BP diastolic 48–122; PULSE 59–129; RESP 12–40; TEMP 36.5–36.9; O2SAT 78–96
[2022-08-26 02:51] LABS: Basophils % 0.2 %; Hematocrit 36.7 % (42.0-52.0); Hemoglobin 12.6 g/dL (11.7-16.6); Lymphocytes # 0.4 10^3/uL (0.8-4.8); Lymphocytes % 3.5 %; Mean Corpuscular HGB Conc 34.3 g/dL (30.0-36.0); Mean Corpuscular Hemoglobin 29.5 pg (28.0-34.0); Mean Corpuscular Volume 85.9 fl (80-94); Mean Platelet Volume 9.7 fL (7.4-10.4); Monocytes # 0.6 10^3/uL (0.2-0.9); Monocytes % 4.5 %; Neutrophils # 11.25 10^3/uL (1.8-7.7); Neutrophils % 91.3 %; Nucleated Red Blood Cells % 0 %; Platelet Count 207 10^3/cmm (130-400); Red Blood Count 4.27 10^6/uL (4.1-5.3); Red Cell Distribution Width 14.2 % (12.1-15.1); White Blood Count 12.3 10^3/uL (4.0-10.0)
[2022-08-26] MEDS: ipratropium-albuterol 3 mL Neb INHALATION ×6 (03:06→23:21)
[2022-08-26 03:22] LABS: Anion Gap 13.2 (5-19); Blood Urea Nitrogen 20 mg/dL (8-23); Calcium 8.3 mg/dL (8.5-10.5); Carbon Dioxide 23 mmol/L (22-29); Chloride 103 mmol/L (98-107); Creatinine Clr Calc Pharmacy 66.5271; Glucose 177 mg/dL (65-115); NT Pro B Type Natriuretic Pept 2871 pg/mL (0-450); Osmolality Calculated 287 mOsm/kg (285-295); Potassium 4.2 mmol/L (3.5-5.1); Sodium 135 mmol/L (136-145)
--- NOTE | 2022-08-26 05:31 | PC.NURSE ---
Patient has rest comfortably through shift. No reports of pain and BP remains stable with MAP >65. Afebrile through this nurses shift. Patient has exhibited frequent PVCs at times with >25 per minute. Patient remains asymptomatic.
[2022-08-26] MEDS: midodrine 5 mg TABLET 10 MG PO ×2 (05:45→12:23)
[2022-08-26] MEDS: aspirin 81 mg EC Tablet PO (05:45)
[2022-08-26] MEDS: budesonide 0.5 mg/2 mL Neb INHALATION ×2 (08:26→19:30)
[2022-08-26 08:41] LABS: Glucose Point of Care 180 mg/dL (70-110)
[2022-08-26] MEDS: gabapentin 300 mg Capsule PO ×3 (09:08→20:52)
[2022-08-26] MEDS: insulin lispro 100 unit/1 mL SUBCUT ×4 (09:08→20:52)
[2022-08-26] MEDS: FUROsemide 10 mg/mL SDV 2mL 20 MG IVP (09:08)
[2022-08-26] MEDS: tamsulosin 0.4 mg Capsule PO (09:08)
[2022-08-26] MEDS: levothyroxine 50 mcg Tablet PO (09:09)
[2022-08-26] MEDS: atorvastatin 40 mg Tablet PO (09:09)
[2022-08-26] MEDS: pantoprazole DR 40 mg Tablet PO (09:09)
[2022-08-26] MEDS: clopidogrel 75 mg Tablet PO (09:09)
[2022-08-26] MEDS: insulin glargine 100 units/1 mL 5 UNIT SUBCUT ×2 (09:50→20:52)
[2022-08-26] MEDS: vancomycin 1,000 MG in sodium chloride 0.9% 250 ML 250 MG IV (11:13)
[2022-08-26] MEDS: cefepime 2,000 MG in sodium chloride 0.9% (plus) 50 ML 100 MG IV ×2 (11:14→22:21)
[2022-08-26 12:02] LABS: Glucose Point of Care 235 mg/dL (70-110)
--- NOTE | 2022-08-26 12:32 | P.PN_ITS ---
Vitals/I&O/Wt Last Vital Signs Temp 98.4 F 08/26/22 00:15 Pulse 68 08/26/22 12:16 Resp 18 08/26/22 12:16 BP 144/122 08/26/22 12:00 Pulse Ox 92 08/26/22 12:16 O2 Del Method 08/26/22 12:16 O2 Flow Rate 4 08/26/22 12:16 08/25/22 08/26/22 08/26/22 22:59 06:59 14:59 Intake Total 640 / 1660 400 / 2060 600 / 600 Output Total 3700 / 3700 725 / 4425 1050 / 1050 Balance -3060 / -2040 -325 / -2365 -450 / -450 Physical Exam Const: COMMON NORMALS: no acute distress Resp: COMMON NORMALS: normal respiratory effort, No retractions, No use of accessory muscles and clear to auscultation bilaterally AUSCULTATION: clear to auscultation bilaterally Cardio: COMMON NORMALS: regular rate, regular rhythm, S1 normal heart sound present and S2 normal heart sound present RATE: regular rate RHYTHM: regular rhythm HEART SOUNDS: S1 normal heart sound present and S2 normal heart sound present GI: COMMON NORMALS: Normal to inspection, nondistended, normoactive bowel sounds present and non-tender Extremity: COMMON NORMALS: no clubbing, cyanosis or edema, no calf tenderness and no pedal edema Urinary Catheter Management: Collins: Cath Placed During This Visit: yes Reason for Continuing Indwelling Catheter: Accurate Measurement of Urinary Output in Critically Ill Patients Urinary Catheter Date of Insertion: 08/24/22 Urinary Catheter Time of Insertion: 13:47 Data 08/26/22 02:07 08/26/22 02:07 Micro: Microbiology 08/24/22 21:50 Gram Stain - Final Sputum - Expectorated Sputum Sputum Culture - Preliminary 08/24/22 11:00 MRSA Culture - Final Nose 08/24/22 11:30 Blood Culture - Preliminary Blood NEGATIVE TO DATE 08/24/22 11:25 Blood Culture - Preliminary Blood NEGATIVE TO DATE A&P Assessment and plan (1) Secondary bacterial pneumonia: (2) Acute respiratory failure with hypoxia: (3) Influenza A: (4) PVD (peripheral vascular disease): (5) Hypertension: (6) Hypothyroidism: Qualifiers: Hypothyroidism type: unspecified Qualified Code(s): E03.9 - Hypothyroidism, unspecified (7) GERD (gastroesophageal reflux disease): Qualifiers: Esophagitis presence: without esophagitis Qualified Code(s): K21.9 - Gastro-esophageal reflux disease without esophagitis (8) Hyperlipemia, mixed: (9) COPD (chronic obstructive pulmonary disease): (10) Diabetes: (11) Sepsis: (12) Lactic acidosis: Plan Acute hypoxic respiratory failure -Secondary to influenza A -Secondary bacterial pneumonia -COPD exacerbation -Interval worsening of leukocytosis, increased oxygen requirements to 6 L, ABG showing hypoxic respiratory failure -1. Comparison CT 08/24/2022. Interval development of mucoid impaction/peribronchial thickening and ill-defined patchy opacities in the left lung base suggesting developing bronchitis/pneumonia. 2. Moderate pulmonary similar to previous exam. 3. Coronary calcification and esophageal findings as above. 4. Cholelithiasis. Plan -We will moved to general medical floors -Stop midodrine 10 every 8 hours -Continue vancomycin, cefepime -MRSA nares PCR, follow blood cultures, sputum cultures -1 dose of Lasix today -Continue Tamiflu -Monitor respiratory status closely -BiPAP if needed -Lovenox for DVT prophylaxis -DNR Lactic acidosis, sepsis secondary to pneumonia, influenza A, continue to monitor Acute kidney injury on CKD, likely secondary to sepsis, COPD exacerbation as above Peripheral vascular disease continue aspirin, Plavix UTI, Pseudomonas aeruginosa, continue cefepime Plan for today continue antibiotics, continue Tamiflu, 1 dose Lasix, moved to general medical floors potentially discharge in the next 24 hours start midodrine Attestations Medical Necessity Statement*: Patient requires hospitalization secondary to respiratory failure, pneumonia Coding Level of Care Code Acute Waste Water Treatment Plant Operator for g Fwd Diagnoses Secondary bacterial pneumonia J15.9 Acute respiratory failure with hypoxia J96.01 Influenza A J10.1 PVD (peripheral vascular disease) I73.9 Hypertension I10 Hypothyroidism E03.9 Hypothyroidism type: unspecified GERD (gastroesophageal reflux disease) K21.9 Esophagitis presence: without esophagitis Hyperlipemia, mixed E78.2 COPD (chronic obstructive pulmonary disease) J44.9 Diabetes E11.9 Sepsis A41.9 Lactic acidosis E87.20
[2022-08-26 16:42] LABS: Bacillus cereus group Not Detected (NOT DETECT); Bacillus subtillis group Not Detected (NOT DETECT); Corynebacterium Not Detected (NOT DETECT); Cutibacterium acnes (P.acnes) Not Detected (NOT DETECT); Enterococcus Not Detected (NOT DETECT); Enterococcus faecalis Not Detected (NOT DETECT); Enterococcus faecium Not Detected (NOT DETECT); Lactobacillus species Not Detected (NOT DETECT); Listeria Not Detected (NOT DETECT); Listeria monocytogenes Not Detected (NOT DETECT); Micrococcus Not Detected (NOT DETECT); Pan Candida Not Detected (NOT DETECT); Pan Gram-Negative Not Detected (NOT DETECT); Staphylococcus epidermidis Detected (NOT DETECT); Staphylococcus lugdunensis Not Detected (NOT DETECT); Staphylococcus species Detected (NOT DETECT); Streptococcus agalactiae Not Detected (NOT DETECT); Streptococcus anginosus group Not Detected (NOT DETECT); Streptococcus pneumoniae Not Detected (NOT DETECT); Streptococcus pyogenes Not Detected (NOT DETECT); Streptococcus species Not Detected (NOT DETECT); mecA Detected (NOT DETECT); mecC Not Detected (NOT DETECT)
[2022-08-26 17:15] LABS: Glucose Point of Care 152 mg/dL (70-110)
[2022-08-26] MEDS: enoxaparin 40 mg/0.4 mL Syringe SUBCUT (17:23)
[2022-08-26 20:38] LABS: Glucose Point of Care 180 mg/dL (70-110)
--- NOTE | 2022-08-26 22:11 | PC.NURSE ---
2143 report called to CHUY Leon 2157 patient transported to room 272 via bed; tolerated well 221 patient's (Milka) informed via phone of patient's new room number
[2022-08-27] VITALS (24 sets, daily range): BP systolic 104–165; BP diastolic 55–84; PULSE 52–100; RESP 16–32; TEMP 36.2–37.1; O2SAT 85–95
[2022-08-27] MEDS: vancomycin 1,000 MG in sodium chloride 0.9% 250 ML 250 MG IV (04:08)
[2022-08-27 04:21] LABS: Basophils % 0.1 %; Eosinophils % 0.2 %; Hematocrit 40.9 % (42.0-52.0); Hemoglobin 13.7 g/dL (11.7-16.6); Lymphocytes # 0.7 10^3/uL (0.8-4.8); Lymphocytes % 5.7 %; Mean Corpuscular HGB Conc 33.5 g/dL (30.0-36.0); Mean Corpuscular Volume 86.7 fl (80-94); Mean Platelet Volume 9.6 fL (7.4-10.4); Monocytes # 0.9 10^3/uL (0.2-0.9); Monocytes % 7.3 %; Neutrophils # 9.96 10^3/uL (1.8-7.7); Neutrophils % 85.7 %; Nucleated Red Blood Cells % 0 %; Platelet Count 221 10^3/cmm (130-400); Red Blood Count 4.72 10^6/uL (4.1-5.3); White Blood Count 11.6 10^3/uL (4.0-10.0)
[2022-08-27] MEDS: ipratropium-albuterol 3 mL Neb INHALATION ×5 (04:29→19:53)
--- NOTE | 2022-08-27 05:12 | PC.NURSE ---
After this nurse leaving another patient room, RT Magui informed me that patient pulled his oxygen off twice and was able to recover the first time, but is now requiring 10 liters oxygen (previously requiring three) and patient is having increased confusion. Dr. Cameron notified. ABG and Bipap ordered.
[2022-08-27 05:19] LABS: Anion Gap 15.2 (5-19); Blood Urea Nitrogen 20 mg/dL (8-23); Calcium 8.7 mg/dL (8.5-10.5); Carbon Dioxide 24 mmol/L (22-29); Chloride 97 mmol/L (98-107); Creatinine Clr Calc Pharmacy 66.5271; Glucose 124 mg/dL (65-115); NT Pro B Type Natriuretic Pept 4927 pg/mL (0-450); Osmolality Calculated 278 mOsm/kg (285-295); Potassium 4.2 mmol/L (3.5-5.1); Sodium 132 mmol/L (136-145)
[2022-08-27 05:42] LABS: ABG PCO2 33.6 mmHg (35-45); ABG PH Result 7.52 (7.35-7.45); Alveolar-Arterial Oxygen Gradi 5.1 mmHg (5-10); Arterial Blood Gas Hematocrit 41.9 % (42-52); Base Excess ABG 4.9 mmol/L (-2.0-2.0); Blood Gas Allen Test Pos; Blood Gas Sample Site Radial, right; Blood Gas Sample Type Arterial; HCO3 ABG 27.5 mmol/L (22-26); HGB O2 Sat 93.6 % (95-100); Ionized Calcium Level - ABG 1.2 mmol/L (1.1-1.4); Methemoglobin 0.7 % (0.4-1.5); Oxygen Saturation ABG 95.2; PO2 ABG 66.9 mmHg (80.0-100.0); Potassium Level - ABG 4.1 mmol/L (3.5-5.0); Total Hemoglobin 13.7 g/dL (14-18)
[2022-08-27 05:43] LABS: Oxygen Device OXY MASK
[2022-08-27] MEDS: HYDROcodone-acetaminophen 5-325 mg Tablet 1 TAB PO ×2 (06:01→21:48)
[2022-08-27] MEDS: aspirin 81 mg EC Tablet PO (06:01)
--- NOTE | 2022-08-27 08:07 | XRR_ITS ---
PROCEDURE INFORMATION: Exam: XR Chest Exam date and time: 08/27/2022 8:22 AM Age: 82 years old Clinical indication: Condition or disease; Lung condition and disease; Pneumonia; Shortness of breath; Prior surgery; Surgery type: Open heart; Additional info: SOB TECHNIQUE: Imaging protocol: Radiologic exam of the chest. Views: 1 view. Other technique: Frontal portable upright view of the chest. COMPARISON: CR XR chest 1V portable [id number] 08/25/2022 7:04 AM FINDINGS: Tubes, catheters and devices: The patient is status post median sternotomy with intact sternal cerclage wires. EKG leads are present overlying the chest. Lungs: Moderate pulmonary hyperexpansion. Improved left basilar pulmonary partial/subsegmental atelectasis. The pulmonary vasculature is normal. Pleural spaces: No pleural effusion. No pneumothorax. Heart/Mediastinum: The heart is normal in size and contour. Mediastinum: Stable. Vasculature: Moderate aortic arch atherosclerotic calcification without ectasia. Bones/joints: Stable. XR/XR chest 1V portable [id number] IMPRESSION: 1. Moderate pulmonary hyperexpansion, increased. 2. Improved left basilar pulmonary partial/subsegmental atelectasis. Superimposed pneumonitis is difficult to exclude. Clinical correlation is recommended.
[2022-08-27] MEDS: budesonide 0.5 mg/2 mL Neb INHALATION ×2 (08:28→19:53)
[2022-08-27] MEDS: atorvastatin 40 mg Tablet PO (09:17)
[2022-08-27] MEDS: clopidogrel 75 mg Tablet PO (09:17)
[2022-08-27] MEDS: levothyroxine 50 mcg Tablet PO (09:17)
[2022-08-27] MEDS: FUROsemide 10 mg/mL SDV 4mL 40 MG IVP (09:17)
[2022-08-27] MEDS: gabapentin 300 mg Capsule PO ×3 (09:18→21:48)
[2022-08-27] MEDS: pantoprazole DR 40 mg Tablet PO (09:18)
[2022-08-27] MEDS: tamsulosin 0.4 mg Capsule PO (09:18)
--- NOTE | 2022-08-27 09:33 | USCV_ITS ---
Mauro Espino Age: 82 Gender: M : 1940 Exam Date: 08/27/2022 11:46 Ordering Phys: Jose R Hackett MD Technologist: Garcia Black Exam Location: [facility] [place] Indication: Shortness of breath BP: 134 / 66 HR: Rhythm: Sinus Technical Quality: Very technically difficult study MEASUREMENTS (Male / Female) Normal Values 2D ECHO LV Ejection Fraction MOD 2C 74.3 % LV Ejection Fraction 2C AL 73.9 % DOPPLER AV Peak Velocity 137.0 cm/s LVOT Peak Velocity 82.0 cm/s MV Area PHT 5.1 cm squared Mitral E to A Ratio 0.6 MV E' Velocity 26.0 cm/s Mitral E to MV E' Ratio 6.0 Mitral E to LV E' Lateral Ratio 5.6 Mitral E to LV E' Septal Ratio 6.4 TR Peak Velocity 212.0 cm/s TR Peak Gradient 18.0 mmHg TV Peak E Velocity 102.0 cm/s Right Atrial Pressure 3.0 mmHg Pulmonary Artery Systolic Pressu 21.0 mmHg FINDINGS Left Ventricle Normal left ventricular cavity size. Moderately decreased left ventricular systolic function. Left ventricular ejection fraction is estimated at 35 %. Moderate global left ventricular hypokinesis. Right Ventricle Normal right ventricular size and systolic function. Right Atrium Right atrium not well visualized. Left Atrium Probably increased left atrial size. Mitral Valve Mitral valve not well visualized. Aortic Valve Aortic valve not well visualized. Tricuspid Valve Tricuspid valve not well visualized. Pulmonic Valve Pulmonic valve not well visualized. Pericardium No pericardial effusion. Aorta Aorta not well visualized. IVC Inferior vena cava not visualized. CONCLUSIONS 1. This is a technically very difficult study. 2. Normal left ventricular cavity size. Moderately decreased left ventricular systolic function. Left ventricular ejection fraction is estimated at 35 %. Moderate global left ventricular hypokinesis. 3. When compared to study report dated 06/15/2020, there may not have been any significant change. Yareli Pollard MD (Electronically Signed) Final Date: 01 September 2022 08:42 S
--- NOTE | 2022-08-27 09:47 | ECG_ITS ---
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 Measurements Intervals [place] Rate: 90 P: 83 NC: 139 QRS: 72 QRSD: 123 T: -59 QT: 366 QTc: 448 Interpretive Statements SINUS RHYTHM WITH OCCASIONAL VENTRICULAR PREMATURE COMPLEXES SEPTAL MYOCARDIAL INFARCTION , OF INDETERMINATE AGE [40+ ms Q WAVE IN V1/V2] MODERATE T-WAVE ABNORMALITY, CONSIDER INFERIOR ISCHEMIA [-0.1+ mV T-WAVE IN II/aVF] Compared to ECG 08/24/2022 17:13:09 Myocardial infarct finding now present T-wave abnormality now present Possible ischemia now present Left-axis deviation no longer present Intraventricular conduction delay no longer present Electronically Signed On 08-28-2022 13:49:53 [employer]IESEL MECHANIC by Lyle Lovell M.D. [email or web address]
[2022-08-27 09:53] LABS: ABG PCO2 33.7 mmHg (35-45); ABG PH Result 7.49 (7.35-7.45); Arterial Blood Gas Hematocrit 44.5 % (42-52); Base Excess ABG 2.6 mmol/L (-2.0-2.0); Blood Gas Operator Identificat AMH; Blood Gas Sample Site Brachial, right; Blood Gas Sample Type Arterial; HCO3 ABG 25.5 mmol/L (22-26); Oxygen Device BIPAP
[2022-08-27 10:16] LABS: Troponin(5th) Baseline 42 ng/L (0-15)
[2022-08-27] MEDS: insulin glargine 100 units/1 mL 5 UNIT SUBCUT (10:24)
[2022-08-27 11:06] LABS: D Dimer 3.08 ug/mIFEU (0-0.59)
[2022-08-27 11:12] LABS: Glucose Point of Care 228 mg/dL (70-110)
--- NOTE | 2022-08-27 11:38 | ECG_ITS ---
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 Measurements Intervals [place] Rate: 81 P: 82 AR: 135 QRS: 36 QRSD: 121 T: -48 QT: 386 QTc: 450 Interpretive Statements SINUS RHYTHM WITH OCCASIONAL VENTRICULAR PREMATURE COMPLEXES WITH OCCASIONAL SUPRAVENTRICULAR PREMATURE COMPLEXES MODERATE INTRAVENTRICULAR CONDUCTION DELAY [110+ ms QRS DURATION] MODERATE T-WAVE ABNORMALITY, CONSIDER INFERIOR ISCHEMIA [-0.1+ mV T-WAVE IN II/aVF] Compared to ECG 08/27/2022 09:47:21 Intraventricular conduction delay now present Myocardial infarct finding no longer present T-wave abnormality still present Possible ischemia still present Electronically Signed On 08-28-2022 13:53:33 EDGE BURNISHER UPPERS by Lyle Lovell M.D. [id number]
--- NOTE | 2022-08-27 11:56 | P.PN_ITS ---
Subjective Subjective: Overnight patient had episodes of hypoxia and confusion, requiring 100% BiPAP, this morning he was examined he is not in respiratory distress, able to speak a sentence without evidence of respiratory distress, no wheezing on exam, no retractions no nasal flaring he is in 100% BiPAP, saturating the mid 90s, following all commands, he really wants to go home, denies any chest pain, no palpitations, no fevers, Vitals/I&O/Wt Last Vital Signs Temp 98.5 F 08/27/22 11:29 Pulse 81 08/27/22 11:39 Resp 26 H 08/27/22 11:39 BP 116/74 08/27/22 11:29 Pulse Ox 91 08/27/22 11:39 O2 Del Method 08/27/22 11:39 O2 Flow Rate 6 08/27/22 04:25 FiO2 60 08/27/22 11:39 08/26/22 08/27/22 08/27/22 22:59 06:59 14:59 Intake Total 272 / 1316 250 / 1566 0 / 0 Output Total 1500 / 3300 Balance 272 / -484 -1250 / -1734 0 / 0 Physical Exam Const: COMMON NORMALS: no acute distress and patient oriented x3 HENMT: COMMON NORMALS: normocephalic HEAD & SCALP: normocephalic Resp: COMMON NORMALS: normal respiratory effort, No retractions, No use of accessory muscles and clear to auscultation bilaterally AUSCULTATION: clear to auscultation bilaterally Cardio: COMMON NORMALS: regular rate, regular rhythm, S1 normal heart sound present and S2 normal heart sound present RATE: regular rate RHYTHM: regular rhythm HEART SOUNDS: S1 normal heart sound present and S2 normal heart sound present GI: COMMON NORMALS: Normal to inspection, nondistended, normoactive bowel sounds present and non-tender Extremity: COMMON NORMALS: no pedal edema Neuro: COMMON NORMALS: patient oriented x3 Psych: COMMON NORMALS: mental status grossly normal Urinary Catheter Management: Collins: Cath Placed During This Visit: yes Reason for Continuing Indwelling Catheter: Accurate Measurement of Urinary Output in Critically Ill Patients Urinary Catheter Date of Insertion: 08/24/22 Urinary Catheter Time of Insertion: 13:47 Data 08/27/22 04:06 08/27/22 04:06 Micro: Microbiology 08/26/22 18:08 Blood Culture - Preliminary Blood SPECIMEN COLLECTED 08/26/22 18:08 Blood Culture - Preliminary Blood SPECIMEN COLLECTED 08/24/22 11:25 Blood Culture - Preliminary Blood Staphylococcus epidermidis 08/24/22 21:50 Gram Stain - Final Sputum - Expectorated Sputum Sputum Culture - Preliminary A&P Assessment and plan (1) Acute respiratory failure with hypoxia: (2) Secondary bacterial pneumonia: (3) Acute respiratory failure with hypoxia: (4) Influenza A: (5) PVD (peripheral vascular disease): (6) Hypertension: (7) Hypothyroidism: Qualifiers: Hypothyroidism type: unspecified Qualified Code(s): E03.9 - Hypothyroidism, unspecified (8) GERD (gastroesophageal reflux disease): Qualifiers: Esophagitis presence: without esophagitis Qualified Code(s): K21.9 - Gastro-esophageal reflux disease without esophagitis (9) Hyperlipemia, mixed: (10) COPD (chronic obstructive pulmonary disease): (11) Diabetes: (12) Sepsis: (13) Lactic acidosis: Plan Acute hypoxic respiratory failure -Secondary to influenza A -Secondary bacterial pneumonia -COPD exacerbation -Interval worsening of leukocytosis, increased oxygen requirements BiPAP, ABG showing hypoxic respiratory failure, moved to the ICU monitored for 48 hours to ICU, overall clinically improved to 4 L, moved back to general medical floors -However overnight developed worsening hypoxia requiring 100% BiPAP -This morning he does not have any clinical evidence of respiratory distress, no nasal flaring no intercostal retractions no wheezing, -Repeat ABG shows pH 7.49, PCO2 33.7, PO2 128, on 90% BiPAP, respiratory therapy has decreased him to 60% Prior CT shows -1. Comparison CT 08/24/2022. Interval development of mucoid impaction/peribronchial thickening and ill-defined patchy opacities in the left lung base suggesting developing bronchitis/pneumonia. 2. Moderate pulmonary similar to previous exam. 3. Coronary calcification and esophageal findings as above. 4. Cholelithiasis. -Repeat chest x-ray this morning does not really show any evidence of significant fluid overload, no new consolidation, no pneumothorax, BNP is elevated over 4000 but does not look fluid overloaded -D-dimer is elevated at 3 -Troponin is elevated 42 but no complaints of chest pain Plan -We will continue to monitor General medical floors for now, wean down FiO2 -Given his elevated D-dimer, and his sudden worsening respiratory status suspicious for pulm embolism started on heparin drip once he is medically stable I will perform a CT angiogram -Given elevated BNP, start Lasix 40 IV every 24 hours, monitor urine output -Continue cefepime, discontinue vancomycin -Cultures so far have been unremarkable but continue to follow -Continue Tamiflu -Monitor respiratory status closely -Continue BiPAP, wean as tolerated -Serial EKGs, serial troponins, telemetry monitoring, cardiac echo -Lovenox for DVT prophylaxis -DNR Lactic acidosis, sepsis secondary to pneumonia, influenza A, resolved Acute kidney injury on CKD, likely secondary to sepsis, resolved COPD exacerbation as above Peripheral vascular disease continue aspirin, Plavix UTI, Pseudomonas aeruginosa, continue cefepime Plan for today Lasix dosing, CT angio cardiac echo, heparin drip, wean oxygen therapy monitor respiratory status closely we will consider transfer to ICU based on clinical progress Attestations Medical Necessity Statement*: Patient requires hospitalization, for acute hypoxic respiratory failure requiring BiPAP therapy concerns for pulm embolism, fluid overload Coding Level of Care Code Acute Wet Process Technician for [facility] Fwd Diagnoses Acute respiratory failure with hypoxia J96.01 Secondary bacterial pneumonia J15.9 Acute respiratory failure with hypoxia J96.01 Influenza A J10.1 PVD (peripheral vascular disease) I73.9 Hypertension I10 Hypothyroidism E03.9 Hypothyroidism type: unspecified GERD (gastroesophageal reflux disease) K21.9 Esophagitis presence: without esophagitis Hyperlipemia, mixed E78.2 COPD (chronic obstructive pulmonary disease) J44.9 Diabetes E11.9 Sepsis A41.9 Lactic acidosis E87.20
--- NOTE | 2022-08-27 11:58 | CTR_ITS ---
PROCEDURE INFORMATION: Exam: CTA Chest With Contrast Exam date and time: 08/27/2022 10:42 PM Age: 82 years old Clinical indication: Abnormal findings; Abnormal diagnostic tests; Elevated d-dimer; Shortness of breath; Prior surgery; Surgery type: Cabg; Patient HX: SOB with elevated d dimer TECHNIQUE: Imaging protocol: Computed tomographic angiography of the chest with contrast. 3D rendering (Not supervised by radiologist): MIP and/or 3D reconstructed images were created by the technologist. Radiation optimization: All CT scans at this facility use at least one of these dose optimization techniques: automated exposure control; mA and/or kV adjustment per patient size (includes targeted exams where dose is matched to clinical indication); or iterative reconstruction. Contrast material: OMNI 350; Contrast volume: 92 ml; Contrast route: INTRAVENOUS (IV); COMPARISON: CT angio chest PE prot [id number] 09/18/2020 12:25 PM RADIATION DOSE METRICS: Total DLP (mGy-cm): 255.11 FINDINGS: Pulmonary arteries: Normal. No pulmonary emboli. Aorta: Unremarkable. No aortic aneurysm. No aortic dissection. Lungs: Bilateral dependent airspace infiltrates. Emphysematous changes. Mucosal plugging seen liver multiple bilateral lower lung field bronchi. Pleural spaces: Unremarkable. No pneumothorax. No pleural effusion. Heart: Unremarkable. No cardiomegaly. No pericardial effusion. Lymph nodes: Scattered prominent subcentimeter short axis mediastinal lymph nodes, nonspecific. Bones/joints: Unremarkable. No acute fracture. Soft tissues: Unremarkable. CT/CT angio chest PE protcl [id number] IMPRESSION: 1. Negative for pulmonary embolus. 2. Scattered prominent subcentimeter short axis mediastinal lymph nodes, nonspecific. 3. Bilateral dependent airspace infiltrates. 4. Emphysematous changes. 5. Mucosal plugging seen liver multiple bilateral lower lung field bronchi.
[2022-08-27] MEDS: perflutren protein-a microsphr 0.22 mg/mL SDV 3 mL IV (12:17)
[2022-08-27 12:31] LABS: Troponin 5 2HR 27.34 ng/L (0-15)
[2022-08-27] MEDS: cefepime 2,000 MG in sodium chloride 0.9% (plus) 50 ML 100 MG IV ×2 (12:42→21:49)
[2022-08-27] MEDS: insulin lispro 100 unit/1 mL SUBCUT (12:43)
[2022-08-27 16:12] LABS: Glucose Point of Care 130 mg/dL (70-110)
[2022-08-27] MEDS: enoxaparin 40 mg/0.4 mL Syringe SUBCUT (16:36)
[2022-08-27 22:00] LABS: Glucose Point of Care 107 mg/dL (70-110)
[2022-08-27] MEDS: iohexol 350 mg/mL 500 mL Btl (per mL) IV (22:45)
[2022-08-27] MEDS: heparin drip 25,000 UNIT/500 ML PREMIX 19 UNIT IV (23:38)
[2022-08-27] MEDS: heparin 5,000 unit/mL INJ 1 mL IV (23:56)
[2022-08-28] VITALS (17 sets, daily range): BP systolic 95–139; BP diastolic 36–74; PULSE 55–90; RESP 15–22; TEMP 35.9–36.8; O2SAT 88–100
[2022-08-28 00:47] LABS: Basophils % 0.2 %; Eosinophils % 0.2 %; Hematocrit 38.6 % (42.0-52.0); Lymphocytes # 1.4 10^3/uL (0.8-4.8); Lymphocytes % 11.6 %; Mean Corpuscular HGB Conc 33.7 g/dL (30.0-36.0); Mean Corpuscular Hemoglobin 29.1 pg (28.0-34.0); Mean Corpuscular Volume 86.5 fl (80-94); Mean Platelet Volume 9.5 fL (7.4-10.4); Monocytes # 1.1 10^3/uL (0.2-0.9); Neutrophils # 9.45 10^3/uL (1.8-7.7); Neutrophils % 77.3 %; Nucleated Red Blood Cells % 0 %; Platelet Count 203 10^3/cmm (130-400); Red Blood Count 4.46 10^6/uL (4.1-5.3); Red Cell Distribution Width 14.1 % (12.1-15.1); White Blood Count 12.2 10^3/uL (4.0-10.0)
[2022-08-28] MEDS: HYDROcodone-acetaminophen 5-325 mg Tablet 1 TAB PO ×3 (01:31→22:27)
[2022-08-28] MEDS: ipratropium-albuterol 3 mL Neb INHALATION ×6 (01:36→20:33)
[2022-08-28 01:37] LABS: Anion Gap 14.8 (5-19); Carbon Dioxide 26 mmol/L (22-29); Glucose 92 mg/dL (65-115); Potassium 3.8 mmol/L (3.5-5.1)
[2022-08-28 01:39] LABS: Partial Thromboplastin Time 195.8 SECONDS (23.9-36.7)
[2022-08-28 02:11] LABS: Blood Urea Nitrogen 26 mg/dL (8-23); Calcium 8.3 mg/dL (8.5-10.5); Chloride 97 mmol/L (98-107); NT Pro B Type Natriuretic Pept 3016 pg/mL (0-450); Osmolality Calculated 282 mOsm/kg (285-295); Sodium 134 mmol/L (136-145)
[2022-08-28 02:47] LABS: Partial Thromboplastin Time 106.5 SECONDS (23.9-36.7)
[2022-08-28] MEDS: aspirin 81 mg EC Tablet PO (05:49)
[2022-08-28 06:01] LABS: Partial Thromboplastin Time 78.1 SECONDS (23.9-36.7)
[2022-08-28 06:20] LABS: Glucose Point of Care 86 mg/dL (70-110)
[2022-08-28 07:04] LABS: Glucose Point of Care 105 mg/dL (70-110)
--- NOTE | 2022-08-28 07:04 | PC.NURSE ---
heparin drip stopped at 0655. Unable to acknowledge and document due to physician in chart
[2022-08-28] MEDS: budesonide 0.5 mg/2 mL Neb INHALATION ×2 (08:06→20:33)
[2022-08-28] MEDS: FUROsemide 10 mg/mL SDV 4mL 40 MG IVP ×2 (09:07→18:59)
[2022-08-28] MEDS: tamsulosin 0.4 mg Capsule PO (09:08)
[2022-08-28] MEDS: predniSONE 20 mg Tablet 40 MG PO (09:09)
[2022-08-28] MEDS: gabapentin 300 mg Capsule PO ×3 (09:12→22:27)
[2022-08-28] MEDS: potassium chloride ER 20 mEq Tablet PO ×2 (09:12→18:59)
[2022-08-28] MEDS: atorvastatin 40 mg Tablet PO (09:13)
[2022-08-28] MEDS: levothyroxine 50 mcg Tablet PO (09:13)
[2022-08-28] MEDS: clopidogrel 75 mg Tablet PO (09:13)
[2022-08-28] MEDS: pantoprazole DR 40 mg Tablet PO (09:13)
[2022-08-28] MEDS: insulin glargine 100 units/1 mL 5 UNIT SUBCUT ×2 (10:28→22:29)
[2022-08-28] MEDS: acetylcysteine 200 mg/mL SDV 4 mL 100 MG INHALATION ×3 (11:00→20:33)
[2022-08-28] MEDS: cefepime 2,000 MG in sodium chloride 0.9% (plus) 50 ML 100 MG IV ×2 (12:01→22:27)
--- NOTE | 2022-08-28 16:06 | P.PN_ITS ---
Subjective Subjective: Patient was seen this morning, he overall is doing better his is also at bedside, is on 10 L, his CT angiogram was negative for pulmonary embolism, heparin drip was stopped last night Vitals/I&O/Wt Last Vital Signs Temp 98.1 F 08/28/22 12:00 Pulse 86 08/28/22 15:18 Resp 20 H 08/28/22 15:11 BP 100/59 08/28/22 12:00 Pulse Ox 93 08/28/22 15:11 O2 Del Method 08/28/22 15:11 O2 Flow Rate 10 08/28/22 15:11 FiO2 75 08/28/22 08:06 08/28/22 08/28/22 08/28/22 06:59 14:59 22:59 Intake Total 736.617 / 736.617 Output Total 400 / 2800 Balance -400 / -2100 736.617 / 736.617 Weight last 48 hrs Weight 67.177 kg Physical Exam Const: COMMON NORMALS: no acute distress and patient oriented x3 Resp: COMMON NORMALS: normal respiratory effort, No retractions, No use of accessory muscles and clear to auscultation bilaterally AUSCULTATION: clear to auscultation bilaterally Cardio: COMMON NORMALS: regular rate, regular rhythm, S1 normal heart sound present and S2 normal heart sound present RATE: regular rate RHYTHM: regular rhythm HEART SOUNDS: S1 normal heart sound present and S2 normal heart sound present GI: COMMON NORMALS: Normal to inspection, nondistended, normoactive bowel s ounds present and non-tender Extremity: COMMON NORMALS: no clubbing, cyanosis or edema and no pedal edema Neuro: COMMON NORMALS: patient oriented x3 Psych: COMMON NORMALS: mental status grossly normal Urinary Catheter Management: Collins: Cath Placed During This Visit: yes Reason for Continuing Indwelling Catheter: Acute Urinary Retention or Obstruction Urinary Catheter Date of Insertion: 08/24/22 Urinary Catheter Time of Insertion: 13:47 Data 08/28/22 00:38 08/28/22 00:38 Micro: Microbiology 08/26/22 18:08 Blood Culture - Preliminary Blood NEGATIVE TO DATE 08/26/22 18:08 Blood Culture - Preliminary Blood NEGATIVE TO DATE 08/24/22 21:50 Gram Stain - Final Sputum - Expectorated Sputum Sputum Culture - Final A&P Assessment and plan (1) Acute respiratory failure with hypoxia: (2) Secondary bacterial pneumonia: (3) Acute respiratory failure with hypoxia: (4) Influenza A: (5) PVD (peripheral vascular disease): (6) Hypertension: (7) Hypothyroidism: Qualifiers: Hypothyroidism type: unspecified Qualified Code(s): E03.9 - Hypothyroidism, unspecified (8) GERD (gastroesophageal reflux disease): Qualifiers: Esophagitis presence: without esophagitis Qualified Code(s): K21.9 - Gastro-esophageal reflux disease without esophagitis (9) Hyperlipemia, mixed: (10) COPD (chronic obstructive pulmonary disease): (11) Diabetes: (12) Sepsis: (13) Lactic acidosis: Plan Acute hypoxic respiratory failure -Secondary to influenza A -Secondary bacterial pneumonia -COPD exacerbation -Now with fluid overload requiring diuresis -Interval worsening of leukocytosis, increased oxygen requirements BiPAP, ABG showing hypoxic respiratory failure, moved to the ICU monitored for 48 hours to ICU, overall clinically improved to 4 L, moved back to general medical floors -However overnight developed worsening hypoxia requiring 100% BiPAP -This morning he does not have any clinical evidence of respiratory distress, no nasal flaring no intercostal retractions no wheezing, -Repeat ABG shows pH 7.49, PCO2 33.7, PO2 128, on 90% BiPAP, respiratory therapy has decreased him to 60% Prior CT shows -1. Comparison CT 08/24/2022. Interval development of mucoid impaction/peribronchial thickening and ill-defined patchy opacities in the left lung base suggesting developing bronchitis/pneumonia. 2. Moderate pulmonary similar to previous exam. 3. Coronary calcification and esophageal findings as above. 4. Cholelithiasis. -Repeat chest x-ray this morning does not really show any evidence of significant fluid overload, no new consolidation, no pneumothorax, BNP is elevated over 4000, tolerated Lasix well, oxygen requirements have declined -D-dimer is elevated at 3, CT angiogram negative for pulm embolism, heparin drip stopped -Troponin is elevated 42 but no complaints of chest pain Plan -We will continue to monitor General medical floors for now, wean down FiO2 -Given elevated BNP, start Lasix 40 IV every 24 hours, monitor urine output -Continue cefepime, -Cultures so far have been unremarkable but continue to follow -Continue Tamiflu -Monitor respiratory status closely -Continue BiPAP, wean as tolerated -Serial EKGs, serial troponins, telemetry monitoring, cardiac echo -Lovenox for DVT prophylaxis -DNR Lactic acidosis, sepsis secondary to pneumonia, influenza A, resolved Acute kidney injury on CKD, likely secondary to sepsis, resolved COPD exacerbation as above Peripheral vascular disease continue aspirin, Plavix UTI, Pseudomonas aeruginosa, continue cefepime Plan for today Lasix dosing, decrease O2, monitor respiratory status, up to the side of the bed Attestations Medical Necessity Statement*: Patient requires hospitalization for acute hypoxic respiratory failure Coding Level of Care Code Acute National Accounts Recruiter for Chg Fwd Diagnoses Acute respiratory failure with hypoxia J96.01 Secondary bacterial pneumonia J15.9 Acute respiratory failure with hypoxia J96.01 Influenza A J10.1 PVD (peripheral vascular disease) I73.9 Hypertension I10 Hypothyroidism E03.9 Hypothyroidism type: unspecified GERD (gastroesophageal reflux disease) K21.9 Esophagitis presence: without esophagitis Hyperlipemia, mixed E78.2 COPD (chronic obstructive pulmonary disease) J44.9 Diabetes E11.9 Sepsis A41.9 Lactic acidosis E87.20
[2022-08-28] MEDS: enoxaparin 40 mg/0.4 mL Syringe SUBCUT (16:26)
[2022-08-28 17:03] LABS: Vancomycin Trough 6.4 ug/mL (10-15)
[2022-08-28 17:39] LABS: Glucose Point of Care 308 mg/dL (70-110)
[2022-08-28 18:01] LABS: Glucose Point of Care 122 mg/dL (70-110)
[2022-08-28] MEDS: insulin lispro 100 unit/1 mL SUBCUT ×2 (18:59→22:28)
[2022-08-28 20:15] LABS: Glucose Point of Care 379 mg/dL (70-110)
[2022-08-28] MEDS: sodium chloride 3.5% neb 4 mL Neb INHALATION (20:34)
[2022-08-29] VITALS (13 sets, daily range): BP systolic 99–125; BP diastolic 5–68; PULSE 61–81; RESP 16–75; TEMP 36.6–36.8; O2SAT 89–94
[2022-08-29] MEDS: acetylcysteine 200 mg/mL SDV 4 mL 100 MG INHALATION ×5 (00:13→20:47)
[2022-08-29] MEDS: ipratropium-albuterol 3 mL Neb INHALATION ×5 (00:13→20:48)
[2022-08-29 04:28] LABS: Basophils % 0.3 %; Eosinophils # 0.1 10^3/uL (0.0-0.8); Eosinophils % 0.5 %; Hematocrit 39.4 % (42.0-52.0); Hemoglobin 13.4 g/dL (11.7-16.6); Lymphocytes # 1.1 10^3/uL (0.8-4.8); Lymphocytes % 8.1 %; Mean Corpuscular Hemoglobin 29.5 pg (28.0-34.0); Mean Corpuscular Volume 86.6 fl (80-94); Mean Platelet Volume 9.6 fL (7.4-10.4); Monocytes # 1.3 10^3/uL (0.2-0.9); Monocytes % 9.4 %; Neutrophils # 11.05 10^3/uL (1.8-7.7); Neutrophils % 78.5 %; Nucleated Red Blood Cells % 0 %; Platelet Count 266 10^3/cmm (130-400); Red Blood Count 4.55 10^6/uL (4.1-5.3); Red Cell Distribution Width 13.7 % (12.1-15.1); White Blood Count 14.1 10^3/uL (4.0-10.0)
[2022-08-29 05:23] LABS: Blood Urea Nitrogen 35 mg/dL (8-23); Calcium 8.6 mg/dL (8.5-10.5); Carbon Dioxide 26 mmol/L (22-29); Chloride 94 mmol/L (98-107); Glucose 52 mg/dL (65-115); NT Pro B Type Natriuretic Pept 820 pg/mL (0-450); Osmolality Calculated 279 mOsm/kg (285-295); Sodium 132 mmol/L (136-145)
[2022-08-29] MEDS: aspirin 81 mg EC Tablet PO (05:57)
[2022-08-29 06:21] LABS: Glucose Point of Care 118 mg/dL (70-110)
[2022-08-29] MEDS: budesonide 0.5 mg/2 mL Neb INHALATION ×2 (07:30→20:48)
[2022-08-29] MEDS: sodium chloride 3.5% neb 4 mL Neb INHALATION ×2 (07:30→20:49)
[2022-08-29] MEDS: predniSONE 20 mg Tablet 40 MG PO (08:33)
[2022-08-29] MEDS: pantoprazole DR 40 mg Tablet PO (08:33)
[2022-08-29] MEDS: levothyroxine 50 mcg Tablet PO (08:33)
[2022-08-29] MEDS: clopidogrel 75 mg Tablet PO (08:33)
[2022-08-29] MEDS: atorvastatin 40 mg Tablet PO (08:33)
[2022-08-29] MEDS: gabapentin 300 mg Capsule PO ×3 (08:33→21:30)
[2022-08-29] MEDS: tamsulosin 0.4 mg Capsule PO (08:33)
[2022-08-29] MEDS: insulin glargine 100 units/1 mL 5 UNIT SUBCUT (08:34)
[2022-08-29] MEDS: potassium chloride ER 20 mEq Tablet PO ×2 (08:36→18:51)
[2022-08-29 11:19] LABS: Glucose Point of Care 210 mg/dL (70-110)
[2022-08-29] MEDS: FUROsemide 40 mg Tablet PO ×2 (12:02→18:52)
[2022-08-29] MEDS: cefepime 2,000 MG in sodium chloride 0.9% (plus) 50 ML 100 MG IV ×2 (12:02→23:19)
--- NOTE | 2022-08-29 12:34 | PC.SOCIAL ---
IMM update Imm updated with patient at bedside. Copy of page 2 provided. Patient verbalized understanding. Copy in chart initialed, dated and timed.
[2022-08-29] MEDS: insulin lispro 100 unit/1 mL SUBCUT ×3 (13:20→21:30)
--- NOTE | 2022-08-29 13:50 | P.PN_ITS ---
Subjective Subjective: Patient was seen this morning, he is on 10 L, he tells me he feels a lot better, no fevers, no chills, no nausea, vomiting, no chest pain Vitals/I&O/Wt Last Vital Signs Temp 98.0 F 08/29/22 11:50 Pulse 81 08/29/22 11:50 Resp 16 08/29/22 11:50 BP 123/61 08/29/22 11:50 Pulse Ox 92 08/29/22 11:50 O2 Del Method 08/29/22 11:50 O2 Flow Rate 8 08/29/22 11:36 FiO2 10 08/29/22 04:00 08/28/22 08/29/22 08/29/22 22:59 06:59 14:59 Intake Total 50 / 786.617 360 / 360 Output Total 2400 / 2400 1225 / 3625 Balance -2400 / -1663.383 -1175 / -2838.383 360 / 360 Weight last 48 hrs Weight 61.689 kg Weight 67.177 kg Physical Exam Const: COMMON NORMALS: no acute distress and patient oriented x3 Resp: COMMON NORMALS: normal respiratory effort, No retractions, No use of accessory muscles and clear to auscultation bilaterally AUSCULTATION: clear to auscultation bilaterally Cardio: COMMON NORMALS: regular rate, regular rhythm, S1 normal heart sound present and S2 normal heart sound present RATE: regular rate RHYTHM: regular rhythm HEART SOUNDS: S1 normal heart sound present and S2 normal heart sound present GI: COMMON NORMALS: Normal to inspection, nondistended, normoactive bowel sounds present and non-tender Extremity: COMMON NORMALS: no pedal edema Neuro: COMMON NORMALS: patient oriented x3 Psych: COMMON NORMALS: mental status grossly normal Urinary Catheter Management: Collins: Cath Placed During This Visit: yes Reason for Continuing Indwelling Catheter: Acute Urinary Retention or Obstruction Urinary Catheter Date of Insertion: 08/24/22 Urinary Catheter Time of Insertion: 13:47 Data 08/29/22 03:46 08/29/22 03:46 Micro: Microbiology 08/24/22 11:30 Blood Culture - Final Blood NO GROWTH AFTER 5 DAYS 08/24/22 11:25 Blood Culture - Preliminary Blood Staphylococcus epidermidis A&P Assessment and plan (1) Acute respiratory failure with hypoxia: (2) Secondary bacterial pneumonia: (3) Acute respiratory failure with hypoxia: (4) Influenza A: (5) PVD (peripheral vascular disease): (6) Hypertension: (7) Hypothyroidism: Qualifiers: Hypothyroidism type: unspecified Qualified Code(s): E03.9 - Hypothyroidism, unspecified (8) GERD (gastroesophageal reflux disease): Qualifiers: Esophagitis presence: without esophagitis Qualified Code(s): K21.9 - Gastro-esophageal reflux disease without esophagitis (9) Hyperlipemia, mixed: (10) COPD (chronic obstructive pulmonary disease): (11) Diabetes: (12) Sepsis: (13) Lactic acidosis: Plan Acute hypoxic respiratory failure -Secondary to influenza A -Secondary bacterial pneumonia -COPD exacerbation -Now with fluid overload requiring diuresis -Interval worsening of leukocytosis, increased oxygen requirements BiPAP, ABG showing hypoxic respiratory failure, moved to the ICU monitored for 48 hours to ICU, overall clinically improved to 4 L, moved back to general medical floors -However overnight developed worsening hypoxia requiring 100% BiPAP -This morning he does not have any clinical evidence of respiratory distress, no nasal flaring no intercostal retractions no wheezing, on [address] shows -1. Comparison CT 08/24/2022. Interval development of mucoid impaction/peribronchial thickening and ill-defined patchy opacities in the left lung base suggesting developing bronchitis/pneumonia. 2. Moderate pulmonary similar to previous exam. 3. Coronary calcification and esophageal findings as above. 4. Cholelithiasis. -BNP over 4000, now improving to 800 -D-dimer is elevated at 3, CT angiogram negative for pulm embolism, heparin drip stopped -Troponin is elevated 42 but no complaints of chest pain Plan -We will continue to monitor General medical floors for now, wean down FiO2 -Given elevated BNP, continue Lasix 40 twice daily -Continue cefepime, -Cultures so far have been unremarkable but continue to follow -Completed Tamiflu -Monitor respiratory status closely -Continue BiPAP, wean as tolerated -Serial EKGs, serial troponins, telemetry monitoring, cardiac echo pending -Lovenox for DVT prophylaxis -DNR Lactic acidosis, sepsis secondary to pneumonia, influenza A, resolved Acute kidney injury on CKD, likely secondary to sepsis, resolved COPD exacerbation as above Peripheral vascular disease continue aspirin, Plavix UTI, Pseudomonas aeruginosa, continue cefepime Plan for today L switch to p.o. Lasix, decrease oxygen requirements, continue antibiotic therapy, prepare for discharge hopefully tomorrow Attestations Medical Necessity Statement*: Patient requires hospital patient for acute respiratory failure secondary to pneumonia, fluid overload Coding Level of Care Code Acute Engine Lathe Set Up Operator Tool for g Fwd Diagnoses Acute respiratory failure with hypoxia J96.01 Secondary bacterial pneumonia J15.9 Acute respiratory failure with hypoxia J96.01 Influenza A J10.1 PVD (peripheral vascular disease) I73.9 Hypertension I10 Hypothyroidism E03.9 Hypothyroidism type: unspecified GERD (gastroesophageal reflux disease) K21.9 Esophagitis presence: without esophagitis Hyperlipemia, mixed E78.2 COPD (chronic obstructive pulmonary disease) J44.9 Diabetes E11.9 Sepsis A41.9 Lactic acidosis E87.20
[2022-08-29 16:59] LABS: Glucose Point of Care 265 mg/dL (70-110)
[2022-08-29] MEDS: enoxaparin 40 mg/0.4 mL Syringe SUBCUT (18:51)
[2022-08-29 20:42] LABS: Glucose Point of Care 208 mg/dL (70-110)
[2022-08-30] VITALS (18 sets, daily range): BP systolic 109–148; BP diastolic 62–78; PULSE 59–96; RESP 15–22; TEMP 36.3–36.8; O2SAT 88–93
[2022-08-30] MEDS: ipratropium-albuterol 3 mL Neb INHALATION ×6 (03:24→20:55)
[2022-08-30] MEDS: acetylcysteine 200 mg/mL SDV 4 mL 100 MG INHALATION ×6 (03:25→20:56)
[2022-08-30 04:06] LABS: Basophils % 0.2 %; Eosinophils # 0.1 10^3/uL (0.0-0.8); Eosinophils % 0.4 %; Hematocrit 42.2 % (42.0-52.0); Lymphocytes % 7.9 %; Mean Corpuscular HGB Conc 33.2 g/dL (30.0-36.0); Mean Corpuscular Hemoglobin 28.8 pg (28.0-34.0); Mean Corpuscular Volume 86.8 fl (80-94); Mean Platelet Volume 9.6 fL (7.4-10.4); Monocytes % 7.7 %; Neutrophils % 79.9 %; Nucleated Red Blood Cells % 0 %; Platelet Count 308 10^3/cmm (130-400); Red Blood Count 4.86 10^6/uL (4.1-5.3); Red Cell Distribution Width 13.6 % (12.1-15.1); White Blood Count 12.5 10^3/uL (4.0-10.0)
[2022-08-30 04:46] LABS: Anion Gap 15.4 (5-19); Blood Urea Nitrogen 26 mg/dL (8-23); Calcium 9.2 mg/dL (8.5-10.5); Carbon Dioxide 26 mmol/L (22-29); Chloride 92 mmol/L (98-107); Glucose 97 mg/dL (65-115); NT Pro B Type Natriuretic Pept 734 pg/mL (0-450); Osmolality Calculated 273 mOsm/kg (285-295); Potassium 4.4 mmol/L (3.5-5.1); Sodium 129 mmol/L (136-145)
[2022-08-30] MEDS: aspirin 81 mg EC Tablet PO (05:27)
[2022-08-30] MEDS: insulin glargine 100 units/1 mL 5 UNIT SUBCUT (05:45)
[2022-08-30 06:43] LABS: Glucose Point of Care 137 mg/dL (70-110)
[2022-08-30] MEDS: tamsulosin 0.4 mg Capsule PO (07:24)
[2022-08-30] MEDS: atorvastatin 40 mg Tablet PO (07:24)
[2022-08-30] MEDS: clopidogrel 75 mg Tablet PO (07:25)
[2022-08-30] MEDS: predniSONE 20 mg Tablet 40 MG PO (07:25)
[2022-08-30] MEDS: pantoprazole DR 40 mg Tablet PO (07:25)
[2022-08-30] MEDS: levothyroxine 50 mcg Tablet PO (07:25)
[2022-08-30] MEDS: potassium chloride ER 20 mEq Tablet PO (07:25)
[2022-08-30] MEDS: gabapentin 300 mg Capsule PO ×3 (07:31→21:16)
[2022-08-30] MEDS: sodium chloride 3.5% neb 4 mL Neb INHALATION ×2 (07:33→20:56)
[2022-08-30] MEDS: budesonide 0.5 mg/2 mL Neb INHALATION ×2 (07:33→20:56)
--- NOTE | 2022-08-30 10:23 | ECG_ITS ---
[facility] Test Date: 2022-08-30 Pat Name: Mauro Espino Department: Room: 272 Gender: Male Torpedo Specialist: : 1940 Requested By: Jose R Hackett Order Number: [id number] Reading MD: Guy Orta Measurements Intervals [place] Rate: 100 P: 78 GA: 145 QRS: -47 QRSD: 124 T: 78 QT: 340 QTc: 440 Interpretive Statements Sinus tachyardia with occasional PVC ABNORMAL RHYTHM ECG Compared to ECG 08/30/2022 09:10:47 No significant change Electronically Signed On 08-30-2022 15:35:55 MANUFACTURING COST ESTIMATOR by Guy Orta [id number]
[2022-08-30 10:24] LABS: Magnesium 2.1 mg/dL (1.7-2.3); Troponin(5th) Baseline 20 ng/L (0-15)
--- NOTE | 2022-08-30 10:56 | ECG_ITS ---
[facility] Test Date: 2022-08-30 Pat Name: Mauro Espino Department: Room: 272 Gender: Male Civil Lawyer: : 1940 Requested By: Jose R Hackett Order Number: [id number] Reading MD: Guy Orta Measurements Intervals [place] Rate: 93 P: 88 MS: 146 QRS: -49 QRSD: 124 T: 81 QT: 354 QTc: 440 Interpretive Statements SINUS RHYTHM WITH OCCASIONAL VENTRICULAR PREMATURE COMPLEXES POSSIBLE LEFT ATRIAL ENLARGEMENT [-0.1mV P-WAVE IN V1/V2] LEFT AXIS DEVIATION [QRS AXIS < -30] MODERATE INTRAVENTRICULAR CONDUCTION DELAY [110+ ms QRS DURATION] INTERPRETATION BASED ON A DEFAULT AGE OF 40 YEARS No significant change Electronically Signed On 08-30-2022 15:04:13 FIRMWARE DEVELOPER by Guy Orta [id number]
[2022-08-30 11:31] LABS: Glucose Point of Care 258 mg/dL (70-110)
[2022-08-30] MEDS: vancomycin 1,000 MG in sodium chloride 0.9% 250 ML 250 MG IV (11:47)
[2022-08-30] MEDS: cefepime 2,000 MG in sodium chloride 0.9% (plus) 50 ML 100 MG IV ×2 (11:48→23:34)
--- NOTE | 2022-08-30 12:37 | PM.PN ---
Subjective Subjective: Patient was seen this morning, currently on BiPAP he tells me he feels a lot better, no fevers, no chills Vitals/I&O/Wt Last Vital Signs Temp 97.6 F 08/30/22 11:33 Pulse 96 08/30/22 11:33 Resp 15 08/30/22 11:33 BP 116/70 08/30/22 11:33 Pulse Ox 91 08/30/22 11:33 O2 Del Method 08/30/22 11:33 O2 Flow Rate 10 08/30/22 07:44 FiO2 50 08/30/22 11:24 08/29/22 08/30/22 08/30/22 22:59 06:59 14:59 Intake Total 360 / 1010 50 / 1060 Output Total 1999 / 1999 Balance 360 / 1010 -1950 / -940 Weight last 48 hrs Weight 61.689 kg Physical Exam Const: COMMON NORMALS: no acute distress and patient oriented x3 Neck/C-Spine: COMMON NORMALS: no JVD Resp: COMMON NORMALS: normal respiratory effort, No retractions, No use of accessory muscles and clear to auscultation bilaterally AUSCULTATION: clear to auscultation bilaterally Cardio: COMMON NORMALS: no JVD, regular rate, regular rhythm, S1 normal heart sound present and S2 normal heart sound present RATE: regular rate RHYTHM: regular rhythm HEART SOUNDS: S1 normal heart sound present and S2 normal heart sound present GI: COMMON NORMALS: Normal to inspection, nondistended, normoactive bowel sounds present and non-tender Neuro: COMMON NORMALS: patient oriented x3 Psych: COMMON NORMALS: mental status grossly normal Urinary Catheter Management: Collins: Cath Placed During This Visit: yes Reason for Continuing Indwelling Catheter: Acute Urinary Retention or Obstruction Urinary Catheter Date of Insertion: 08/24/22 Urinary Catheter Time of Insertion: 13:47 Data 08/30/22 03:33 08/30/22 03:30 Micro: Microbiology 08/24/22 11:30 Blood Culture - Final Blood NO GROWTH AFTER 5 DAYS 08/24/22 11:25 Blood Culture - Preliminary Blood Staphylococcus epidermidis A&P Assessment and plan (1) Acute respiratory failure with hypoxia: (2) Secondary bacterial pneumonia: (3) Acute respiratory failure with hypoxia: (4) Influenza A: (5) PVD (peripheral vascular disease): (6) Hypertension: (7) Hypothyroidism: Qualifiers: Hypothyroidism type: unspecified Qualified Code(s): E03.9 - Hypothyroidism, unspecified (8) GERD (gastroesophageal reflux disease): Qualifiers: Esophagitis presence: without esophagitis Qualified Code(s): K21.9 - Gastro-esophageal reflux disease without esophagitis (9) Hyperlipemia, mixed: (10) COPD (chronic obstructive pulmonary disease): (11) Diabetes: (12) Sepsis: (13) Lactic acidosis: Plan Acute hypoxic respiratory failure -Secondary to influenza A -Secondary bacterial pneumonia -COPD exacerbation -Now with fluid overload requiring diuresis -Interval worsening of leukocytosis, increased oxygen requirements BiPAP, ABG showing hypoxic respiratory failure, moved to the ICU monitored for 48 hours to ICU, overall clinically improved to 4 L, moved back to general medical floors -However overnight developed worsening hypoxia requiring 100% BiPAP -This morning he does not have any clinical evidence of respiratory distress, no nasal flaring no intercostal retractions no wheezing, on [address] shows -1. Comparison CT 08/24/2022. Interval development of mucoid impaction/peribronchial thickening and ill-defined patchy opacities in the left lung base suggesting developing bronchitis/pneumonia. 2. Moderate pulmonary similar to previous exam. 3. Coronary calcification and esophageal findings as above. 4. Cholelithiasis. -BNP over 4000, now improving to 800 -D-dimer is elevated at 3, CT angiogram negative for pulm embolism, heparin drip stopped -Troponin is elevated 42 but no complaints of chest pain Plan -Currently on general medical floors, wean FiO2, currently on BiPAP, but was on 10 L - -7 L, hold Lasix for today given hyponatremia -Continue cefepime, -Cultures so far have been unremarkable but continue to follow -Completed Tamiflu -Monitor respiratory status closely -Continue BiPAP, wean as tolerated -Serial EKGs, serial troponins, telemetry monitoring, cardiac echo pending -Lovenox for DVT prophylaxis -DNR Lactic acidosis, sepsis secondary to pneumonia, influenza A, resolved Acute kidney injury on CKD, likely secondary to sepsis, resolved COPD exacerbation as above Peripheral vascular disease continue aspirin, Plavix UTI, Pseudomonas aeruginosa, continue cefepime Staph epidermis blood culture, 1 out of 4 blood cultures, likely contamination, for now will start vancomycin, given his respiratory status, follow-up echocardiogram, will discuss with cardiology, tomorrow, consider transesophageal echocardiogram based on results Serum sodium is 129, likely secondary to diuresis, continue to hold diuresis until tomorrow Plan for today hold diuresis, continue antibiotic therapy added vancomycin, will need to follow-up with cardiology tomorrow about echocardiogram results as its in one of the automobile insurance claim examiner box, will consider transesophageal echocardiogram based upon echo results, I think the staph epidermis blood cultures likely contamination, but if his oxygen status does not improve we will have to consider transesophageal echocardiogram Attestations Medical Necessity Statement*: Patient requires hospitalization for acute hypoxic respiratory failure, fluid overload, now with staph epidermis blood cultures Coding Level of Care Code Acute Can Filling Machine Operator for g Fwd Diagnoses Acute respiratory failure with hypoxia J96.01 Secondary bacterial pneumonia J15.9 Acute respiratory failure with hypoxia J96.01 Influenza A J10.1 PVD (peripheral vascular disease) I73.9 Hypertension I10 Hypothyroidism E03.9 Hypothyroidism type: unspecified GERD (gastroesophageal reflux disease) K21.9 Esophagitis presence: without esophagitis Hyperlipemia, mixed E78.2 COPD (chronic obstructive pulmonary disease) J44.9 Diabetes E11.9 Sepsis A41.9 Lactic acidosis E87.20
[2022-08-30] MEDS: insulin lispro 100 unit/1 mL SUBCUT ×3 (13:11→21:16)
--- NOTE | 2022-08-30 14:26 | ECG_ITS ---
[facility] Test Date: 2022-08-30 Pat Name: aMuro Espino Department: Room: 272 Gender: Male Gang Sawyer: : 1940 Requested By: Jose R Hackett Order Number: [id number] Reading MD: Guy Orta Measurements Intervals [place] Rate: 105 P: 71 [place]: 146 QRS: -52 QRSD: 118 T: 78 QT: 329 QTc: 436 Interpretive Statements SINUS TACHYCARDIA WITH FREQUENT VENTRICULAR PREMATURE COMPLEXES LEFT AXIS DEVIATION [QRS AXIS < -30] POSSIBLE ANTERIOR MYOCARDIAL INFARCTION , OF INDETERMINATE AGE [30 ms Q WAVE IN V3/V4, OR R < 0.2 mV IN V4] Compared to ECG 08/27/2022 11:38:04 Left-axis deviation now present Myocardial infarct finding now present Sinus rhythm no longer present Intraventricular conduction delay no longer present T-wave abnormality no longer present Possible ischemia no longer present Electronically Signed On 08-30-2022 15:39:26 ASSISTANT PRODUCER by Guy Orta [id number]
[2022-08-30 15:41] LABS: Troponin 5 6HR 20.43 ng/L (0-15)
[2022-08-30 15:58] LABS: Troponin 5 6HR Delta 0.43 ng/L (0-12)
[2022-08-30 17:04] LABS: Glucose Point of Care 176 mg/dL (70-110)
[2022-08-30] MEDS: enoxaparin 40 mg/0.4 mL Syringe SUBCUT (18:31)
[2022-08-30 20:56] LABS: Glucose Point of Care 273 mg/dL (70-110)
[2022-08-31] VITALS (16 sets, daily range): BP systolic 99–135; BP diastolic 52–76; PULSE 52–92; RESP 15–22; TEMP 36.3–36.8; O2SAT 87–93
[2022-08-31] MEDS: ipratropium-albuterol 3 mL Neb INHALATION ×6 (00:40→21:19)
[2022-08-31] MEDS: acetylcysteine 200 mg/mL SDV 4 mL 100 MG INHALATION (00:40)
[2022-08-31] MEDS: vancomycin 1,000 MG in sodium chloride 0.9% 250 ML 250 MG IV ×2 (03:45→21:27)
[2022-08-31 04:21] LABS: Basophils % 0.2 %; Eosinophils % 0.3 %; Hematocrit 38.6 % (42.0-52.0); Hemoglobin 12.9 g/dL (11.7-16.6); Lymphocytes # 1.4 10^3/uL (0.8-4.8); Lymphocytes % 9.6 %; Mean Corpuscular HGB Conc 33.4 g/dL (30.0-36.0); Mean Corpuscular Hemoglobin 29.6 pg (28.0-34.0); Mean Corpuscular Volume 88.5 fl (80-94); Mean Platelet Volume 9.4 fL (7.4-10.4); Monocytes # 1.3 10^3/uL (0.2-0.9); Monocytes % 8.4 %; Neutrophils # 11.44 10^3/uL (1.8-7.7); Neutrophils % 76.6 %; Nucleated Red Blood Cells % 0 %; Platelet Count 360 10^3/cmm (130-400); Red Blood Count 4.36 10^6/uL (4.1-5.3); Red Cell Distribution Width 13.6 % (12.1-15.1); White Blood Count 14.9 10^3/uL (4.0-10.0)
[2022-08-31 04:52] LABS: Anion Gap 14.5 (5-19); Blood Urea Nitrogen 28 mg/dL (8-23); Calcium 8.7 mg/dL (8.5-10.5); Carbon Dioxide 25 mmol/L (22-29); Chloride 96 mmol/L (98-107); Glucose 92 mg/dL (65-115); Osmolality Calculated 277 mOsm/kg (285-295); Potassium 4.5 mmol/L (3.5-5.1); Sodium 131 mmol/L (136-145)
[2022-08-31] MEDS: aspirin 81 mg EC Tablet PO (05:42)
[2022-08-31] MEDS: insulin glargine 100 units/1 mL 5 UNIT SUBCUT (05:42)
[2022-08-31 06:24] LABS: Glucose Point of Care 126 mg/dL (70-110)
[2022-08-31] MEDS: potassium chloride ER 20 mEq Tablet PO (06:42)
[2022-08-31] MEDS: gabapentin 300 mg Capsule PO ×3 (09:00→21:27)
[2022-08-31] MEDS: tamsulosin 0.4 mg Capsule PO (09:00)
[2022-08-31] MEDS: predniSONE 20 mg Tablet 40 MG PO (09:00)
[2022-08-31] MEDS: levothyroxine 50 mcg Tablet PO (09:00)
[2022-08-31] MEDS: clopidogrel 75 mg Tablet PO (09:01)
[2022-08-31] MEDS: atorvastatin 40 mg Tablet PO (09:01)
[2022-08-31] MEDS: FUROsemide 40 mg Tablet PO (09:01)
[2022-08-31] MEDS: pantoprazole DR 40 mg Tablet PO (09:01)
[2022-08-31] MEDS: budesonide 0.5 mg/2 mL Neb INHALATION ×2 (09:04→21:19)
[2022-08-31] MEDS: sodium chloride 3.5% neb 4 mL Neb INHALATION (09:04)
[2022-08-31 11:10] LABS: Glucose Point of Care 204 mg/dL (70-110)
--- NOTE | 2022-08-31 11:22 | XR_ITS ---
WS: [id number] Exam: XR chest 1V portable [id number] Date/Time of Exam: 08/31/2022 11:28 AM Reason For Exam: sob Comparison 08/27/2022. The lungs are hyperinflated and clear. Plaque atelectasis in the left base. Probable trace left pleur al effusion. Cardiomediastinal silhouette is unremarkable. Signs of previous CABG surgery. Regional b silvia elements are intact. XR/XR chest 1V portable [id number] IMPRESSION: 1. Pulmonary hyperinflation probably indicating COPD. 2. Chronic plaque atelectasis in the left base. Probable trace left basal pleur al effusion.
[2022-08-31] MEDS: cefepime 2,000 MG in sodium chloride 0.9% (plus) 50 ML 100 MG IV ×2 (12:07→23:39)
[2022-08-31] MEDS: insulin lispro 100 unit/1 mL SUBCUT ×3 (12:08→21:28)
[2022-08-31 16:59] LABS: Glucose Point of Care 199 mg/dL (70-110)
[2022-08-31] MEDS: enoxaparin 40 mg/0.4 mL Syringe SUBCUT (17:33)
--- NOTE | 2022-08-31 18:01 | PM.PN ---
Subjective Subjective: Patient was seen and examined this morning, currently is requiring 9 L oxygen through [facility], usually does not use oxygen at home, x-ray chest done this morning: Has not shown any pulmonary vascular congestion, possible trace left pleural effusion, so far 6.4 L negative, currently on p.o. Lasix, as well as vancomycin and cefepime. Will de-escalate IV antibiotics, shortly, as the blood cultures so far has remained negative, MRSA PCR is negative, Sputum gram stain and culture: Is showing Few GPC in pairs, rare gram-negative rods. Medications: Reviewed: Yes Medication Review Details: Generic Name Dose Route Start Last Admin Trade Name Freq PRN Reason Stop Dose Admin Hydrocodone Bitart /Acetaminophen 1 tab 08/22/22 14:00 08/31/22 17:35 Hydrocodone-Acet aminophen 5-325 Mg Tablet PO Not Given Q4H DINA Albuterol/Ipratrop ium 3 ml 08/23/22 08:00 08/31/22 16:19 Ipratropium-Albu terol 3 Ml Neb INHALATION 3 ml Q4H.RESPIRATORY S CH Administration Aspirin 81 mg 08/23/22 06:00 08/31/22 05:42 Aspirin 81 Mg Ec Tablet PO 81 mg QAM DINA Administration Atorvastatin Calci um 40 mg 08/23/22 09:00 08/31/22 09:01 Atorvastatin 40 Mg Tablet PO 40 mg DAILY DINA Administration Budesonide 0.5 mg 08/24/22 20:00 08/31/22 09:04 Budesonide 0.5 M g/2 Ml Neb INHALATION 0.5 mg BID.RESPIRATORY S CH Administration Clopidogrel Bisulf ate 75 mg 08/23/22 09:00 08/31/22 09:01 Clopidogrel 75 M g Tablet PO 75 mg DAILY DINA Administration Enoxaparin Sodium 40 mg 08/26/22 17:00 08/31/22 17:33 Enoxaparin 40 Mg /0.4 Ml Syringe SUBCUT 40 mg Q24H DINA Administration Furosemide 40 mg 08/31/22 08:00 08/31/22 09:01 Furosemide 40 Mg Tablet PO 40 mg Q24H DINA Administration Gabapentin 300 mg 08/22/22 15:00 08/31/22 14:20 Gabapentin 300 M g Capsule PO 300 mg TID DINA Administration Cefepime HCl 2,000 mg/ Sodium 50 mls @ 100 mls/ hr 08/24/22 11:00 08/31/22 12:34 Chloride IV Infused Q12H DINA Infusion Protocol Vancomycin HCl 1,0 00 mg/ 250 mls @ 250 mls /hr 08/30/22 10:00 08/31/22 04:47 Sodium Chloride IV Infused Q18H DINA Infusion Insulin Glargine 5 unit 08/30/22 06:00 08/31/22 05:42 Insulin Glargine 100 Units/1 Ml SUBCUT 5 unit QAM DINA Administration Insulin Human Lisp ro 0 unit 08/23/22 12:00 08/31/22 17:33 Insulin Lispro 1 00 Unit/1 Ml SUBCUT 4 unit WM&BEDTIME DINA Administration Protocol Levothyroxine Sodi um 50 mcg 08/23/22 09:00 08/31/22 09:00 Levothyroxine 50 Mcg Tablet PO 50 mcg DAILY DINA Administration Pantoprazole Sodiu m 40 mg 08/23/22 09:00 08/31/22 09:[address] 40 Mg Tablet PO 40 mg DAILY DINA Administration Potassium Chloride 20 meq 08/31/22 07:30 08/31/22 06:42 Potassium Chlori de Er 20 Meq Table t PO 20 meq Q24H DINA Administration Prednisone 40 mg 08/28/22 09:00 08/31/22 09:00 Prednisone 20 Mg Tablet PO 40 mg DAILY DINA Administration Sodium Chloride 4 ml 08/28/22 08:00 08/31/22 09:04 Sodium Chloride 3.5% Neb 4 Ml Neb INHALATION 4 ml BID.RESPIRATORY S CH Administration Tamsulosin HCl 0.4 mg 08/23/22 09:00 08/31/22 09:00 Tamsulosin 0.4 M g Capsule PO 0.4 mg DAILY DINA Administration Vitals/I&O/Wt Last Vital Signs Temp 97.4 F L 08/31/22 16:00 Pulse 90 08/31/22 16:26 Resp 16 08/31/22 16:26 BP 118/62 08/31/22 16:00 Pulse Ox 90 08/31/22 16:26 O2 Del Method 08/31/22 16:26 O2 Flow Rate 9 08/31/22 16:26 FiO2 50 08/31/22 00:41 08/31/22 08/31/22 08/31/22 06:59 14:59 22:59 Intake Total 300 / 1440 530 / 530 Output Total 1150 / 1150 Balance -850 / 290 530 / 530 Physical Exam Const: COMMON NORMALS: patient oriented x3 HENMT: COMMON NORMALS: normocephalic and atraumatic HEAD & SCALP: normocephalic and atraumatic Resp: COMMON NORMALS: clear to auscultation bilaterally AUSCULTATION: clear to auscultation bilaterally OTHER: Diminished air entry bilaterally Cardio: COMMON NORMALS: regular rate, regular rhythm, S1 normal heart sound present, S2 normal heart sound present, No gallops present (Cardio), No murmurs present (Cardio), No rub (Cardio) and Peripheral pulses 2+ throughout RATE: regular rate RHYTHM: regular rhythm HEART SOUNDS: S1 normal heart sound present and S2 normal heart sound present PERIPHERAL PULSES: Peripheral pulses 2+ throughout GI: COMMON NORMALS: Normal to inspection, nondistended, normoactive bowel sounds present, Soft to palpation, non-tender, No hepatosplenomegaly present and no masses AUSCULTATION: Yes normoactive bowel sounds PALPATION: Yes Soft to palpation and Yes No hepatosplenomegaly present RECTAL EXAM: Yes deferred Extremity: COMMON NORMALS: no clubbing, cyanosis or edema and no pedal edema Neuro: COMMON NORMALS: patient oriented x3 Urinary Catheter Management: Collins: Cath Placed During This Visit: yes Reason for Continuing Indwelling Catheter: Accurate Measurement of Urinary Output in Critically Ill Patients Urinary Catheter Date of Insertion: 08/24/22 Urinary Catheter Time of Insertion: 13:47 Data 08/31/22 04:03 08/31/22 04:03 Micro: Microbiology 08/24/22 11:25 Blood Culture - Final Blood Staphylococcus epidermidis A&P Assessment and plan (1) Acute respiratory failure with hypoxia: (2) Secondary bacterial pneumonia: (3) Influenza A: (4) PVD (peripheral vascular disease): (5) Hypertension: (6) Hypothyroidism: Qualifiers: Hypothyroidism type: unspecified Qualified Code(s): E03.9 - Hypothyroidism, unspecified (7) GERD (gastroesophageal reflux disease): Qualifiers: Esophagitis presence: without esophagitis Qualified Code(s): K21.9 - Gastro-esophageal reflux disease without esophagitis (8) Hyperlipemia, mixed: (9) COPD (chronic obstructive pulmonary disease): (10) Diabetes: (11) Sepsis: (12) Lactic acidosis: Plan Acute hypoxic respiratory failure -Secondary to influenza A -Secondary bacterial pneumonia -COPD exacerbation -Now with fluid overload requiring diuresis -Interval worsening of leukocytosis, increased oxygen requirements BiPAP, ABG showing hypoxic respiratory failure, moved to the ICU monitored for 48 hours to ICU, overall clinically improved to 4 L, moved back to general medical floors -However overnight developed worsening hypoxia requiring 100% BiPAP -This morning he does not have any clinical evidence of respiratory distress, no nasal flaring no intercostal retractions no wheezing, on [address] shows -1. Comparison CT 08/24/2022. Interval development of mucoid impaction/peribronchial thickening and ill-defined patchy opacities in the left lung base suggesting developing bronchitis/pneumonia. 2. Moderate pulmonary similar to previous exam. 3. Coronary calcification and esophageal findings as above. 4. Cholelithiasis. -BNP over 4000, now improving to 800 -D-dimer is elevated at 3, CT angiogram negative for pulm embolism, heparin drip stopped -Troponin is elevated 42 but no complaints of chest pain Plan -Currently on general medical floors, wean FiO2, currently on BiPAP, but was on 10 L - -7 L, hold Lasix for today given hyponatremia -Continue cefepime, -Cultures so far have been unremarkable but continue to follow -Completed Tamiflu -Monitor respiratory status closely -Continue BiPAP, wean as tolerated -Serial EKGs, serial troponins, telemetry monitoring, cardiac echo pending -Lovenox for DVT prophylaxis -DNR Lactic acidosis, sepsis secondary to pneumonia, influenza A, resolved Acute kidney injury on CKD, likely secondary to sepsis, resolved COPD exacerbation as above Peripheral vascular disease continue aspirin, Plavix UTI, Pseudomonas aeruginosa, continue cefepime Staph epidermis blood culture, 1 out of 4 blood cultures, likely contamination, for now will start vancomycin, given his respiratory status, follow-up echocardiogram, will discuss with cardiology, tomorrow, consider transesophageal echocardiogram based on results Serum sodium is 129, likely secondary to diuresis, continue to hold diuresis until tomorrow Plan for today hold diuresis, continue antibiotic therapy added vancomycin, will need to follow-up with cardiology tomorrow about echocardiogram results as its in one of the database analyst box, will consider transesophageal echocardiogram based upon echo results, I think the staph epidermis blood cultures likely contamination, but if his oxygen status does not improve we will have to consider transesophageal echocardiogram Attestations Medical Necessity Statement*: Patient needs to be in hospital for management of pneumonia. Coding Level of Care Code Acute Support Service Tech for [facility] Fwd Diagnoses Acute respiratory failure with hypoxia J96.01 Secondary bacterial pneumonia J15.9 Influenza A J10.1 PVD (peripheral vascular disease) I73.9 Hypertension I10 Hypothyroidism E03.9 Hypothyroidism type: unspecified GERD (gastroesophageal reflux disease) K21.9 Esophagitis presence: without esophagitis Hyperlipemia, mixed E78.2 COPD (chronic obstructive pulmonary disease) J44.9 Diabetes E11.9 Sepsis A41.9 Lactic acidosis E87.20
[2022-08-31 20:48] LABS: Glucose Point of Care 217 mg/dL (70-110)
[2022-09-01] VITALS (20 sets, daily range): BP systolic 105–142; BP diastolic 66–83; PULSE 53–95; RESP 16–20; TEMP 36.3–36.7; O2SAT 90–97
[2022-09-01] MEDS: ipratropium-albuterol 3 mL Neb INHALATION ×7 (00:32→23:32)
[2022-09-01 05:18] LABS: Basophils % 0.1 %; Eosinophils # 0.1 10^3/uL (0.0-0.8); Eosinophils % 0.4 %; Hematocrit 39.7 % (42.0-52.0); Hemoglobin 13.3 g/dL (11.7-16.6); Lymphocytes # 1.3 10^3/uL (0.8-4.8); Lymphocytes % 9.3 %; Mean Corpuscular HGB Conc 33.5 g/dL (30.0-36.0); Mean Corpuscular Hemoglobin 29.2 pg (28.0-34.0); Mean Corpuscular Volume 87.1 fl (80-94); Mean Platelet Volume 9.4 fL (7.4-10.4); Neutrophils # 11.25 10^3/uL (1.8-7.7); Nucleated Red Blood Cells % 0 %; Platelet Count 330 10^3/cmm (130-400); Red Blood Count 4.56 10^6/uL (4.1-5.3); Red Cell Distribution Width 13.7 % (12.1-15.1); White Blood Count 14.3 10^3/uL (4.0-10.0)
[2022-09-01 05:41] LABS: Anion Gap 14.9 (5-19); Blood Urea Nitrogen 23 mg/dL (8-23); Calcium 8.9 mg/dL (8.5-10.5); Carbon Dioxide 26 mmol/L (22-29); Chloride 96 mmol/L (98-107); Glucose 94 mg/dL (65-115); Osmolality Calculated 277 mOsm/kg (285-295); Potassium 4.9 mmol/L (3.5-5.1); Sodium 132 mmol/L (136-145)
[2022-09-01] MEDS: HYDROcodone-acetaminophen 5-325 mg Tablet 1 TAB PO ×2 (06:30→21:53)
[2022-09-01] MEDS: insulin glargine 100 units/1 mL 5 UNIT SUBCUT (06:30)
[2022-09-01] MEDS: aspirin 81 mg EC Tablet PO (06:31)
[2022-09-01] MEDS: potassium chloride ER 20 mEq Tablet PO (06:31)
[2022-09-01] MEDS: insulin lispro 100 unit/1 mL SUBCUT ×4 (07:14→21:58)
[2022-09-01] MEDS: pantoprazole DR 40 mg Tablet PO (07:15)
[2022-09-01] MEDS: levothyroxine 50 mcg Tablet PO (07:15)
[2022-09-01] MEDS: tamsulosin 0.4 mg Capsule PO (07:15)
[2022-09-01] MEDS: clopidogrel 75 mg Tablet PO (07:15)
[2022-09-01] MEDS: gabapentin 300 mg Capsule PO ×3 (07:15→21:57)
[2022-09-01] MEDS: atorvastatin 40 mg Tablet PO (07:15)
[2022-09-01] MEDS: predniSONE 20 mg Tablet 40 MG PO (07:15)
[2022-09-01] MEDS: FUROsemide 40 mg Tablet PO (07:16)
[2022-09-01 07:33] LABS: Glucose Point of Care 121 mg/dL (70-110)
[2022-09-01] MEDS: sodium chloride 3.5% neb 4 mL Neb INHALATION (07:40)
[2022-09-01] MEDS: budesonide 0.5 mg/2 mL Neb INHALATION ×2 (07:40→20:23)
[2022-09-01 10:42] LABS: Glucose Point of Care 273 mg/dL (70-110)
[2022-09-01] MEDS: cefepime 2,000 MG in sodium chloride 0.9% (plus) 50 ML 100 MG IV ×2 (12:02→22:56)
[2022-09-01] MEDS: vancomycin 1,000 MG in sodium chloride 0.9% 250 ML 250 MG IV (14:41)
--- NOTE | 2022-09-01 14:49 | P.PN_ITS ---
Subjective Subjective: Patient was seen and examined this morning, currently is requiring 9 L oxygen through [facility], continue to have good urine output. Medications: Reviewed: Yes Medication Review Details: Generic Name Dose Route Start Last Admin Trade Name Jared PRN Reason Stop Dose Admin Hydrocodone Bitart /Acetaminophen 1 tab 08/22/22 14:00 09/01/22 12:57 Hydrocodone-Acet aminophen 5-325 Mg Tablet PO Not Given Q4H DINA Albuterol/Ipratrop ium 3 ml 08/23/22 08:00 09/01/22 11:23 Ipratropium-Albu terol 3 Ml Neb INHALATION 3 ml Q4H.RESPIRATORY S CH Administration Aspirin 81 mg 08/23/22 06:00 09/01/22 06:31 Aspirin 81 Mg Ec Tablet PO 81 mg QAM DINA Administration Atorvastatin Calci um 40 mg 08/23/22 09:00 09/01/22 07:15 Atorvastatin 40 Mg Tablet PO 40 mg DAILY DINA Administration Budesonide 0.5 mg 08/24/22 20:00 09/01/22 07:40 Budesonide 0.5 M g/2 Ml Neb INHALATION 0.5 mg BID.RESPIRATORY S CH Administration Clopidogrel Bisulf ate 75 mg 08/23/22 09:00 09/01/22 07:15 Clopidogrel 75 M g Tablet PO 75 mg DAILY DINA Administration Enoxaparin Sodium 40 mg 08/26/22 17:00 08/31/22 17:33 Enoxaparin 40 Mg /0.4 Ml Syringe SUBCUT 40 mg Q24H DINA Administration Furosemide 40 mg 08/31/22 08:00 09/01/22 07:16 Furosemide 40 Mg Tablet PO 40 mg Q24H DINA Administration Gabapentin 300 mg 08/22/22 15:00 09/01/22 14:42 Gabapentin 300 M g Capsule PO 300 mg TID DINA Administration Cefepime HCl 2,000 mg/ Sodium 50 mls @ 100 mls/ hr 08/24/22 11:00 09/01/22 13:19 Chloride IV Infused Q12H DINA Infusion Protocol Insulin Glargine 5 unit 08/30/22 06:00 09/01/22 06:30 Insulin Glargine 100 Units/1 Ml SUBCUT 5 unit QAM DINA Administration Insulin Human Lisp ro 0 unit 08/23/22 12:00 09/01/22 12:57 Insulin Lispro 1 00 Unit/1 Ml SUBCUT 8 unit WM&BEDTIME DINA Administration Protocol Levothyroxine Sodi um 50 mcg 08/23/22 09:00 09/01/22 07:15 Levothyroxine 50 Mcg Tablet PO 50 mcg DAILY DINA Administration Methylprednisolone Sodium Succinate 40 mg 09/01/22 12:30 09/01/22 13:20 Methylprednisolo ne Sod Succ 40 Mg/ Ml Inj IVP 40 mg Q8H DINA Administration Pantoprazole Sodiu m 40 mg 08/23/22 09:00 09/01/22 07:[address] 40 Mg Tablet PO 40 mg DAILY DINA Administration Potassium Chloride 20 meq 08/31/22 07:30 09/01/22 06:31 Potassium Chlori de Er 20 Meq Table t PO 20 meq Q24H DINA Administration Sodium Chloride 4 ml 08/28/22 08:00 09/01/22 07:40 Sodium Chloride 3.5% Neb 4 Ml Neb INHALATION 4 ml BID.RESPIRATORY S CH Administration Tamsulosin HCl 0.4 mg 08/23/22 09:00 09/01/22 07:15 Tamsulosin 0.4 M g Capsule PO 0.4 mg DAILY DINA Administration Vitals/I&O/Wt Last Vital Signs Temp 97.5 F L 09/01/22 12:00 Pulse 79 09/01/22 12:00 Resp 16 09/01/22 12:00 BP 127/74 09/01/22 12:00 Pulse Ox 93 09/01/22 12:00 O2 Del Method 09/01/22 12:00 O2 Flow Rate 10 09/01/22 12:00 FiO2 50 09/01/22 07:40 08/31/22 09/01/22 09/01/22 22:59 06:59 14:59 Intake Total 730 / 1260 530 / 1790 290 / 290 Output Total 1999 Balance 730 / 1260 -1470 / -210 290 / 290 Weight last 48 hrs Weight 61.462 kg Physical Exam Const: COMMON NORMALS: patient oriented x3 HENMT: COMMON NORMALS: normocephalic and atraumatic HEAD & SCALP: normocephalic and atraumatic Resp: COMMON NORMALS: clear to auscultation bilaterally AUSCULTATION: clear to auscultation bilaterally OTHER: Diminished air entry bilaterally Cardio: COMMON NORMALS: regular rate, regular rhythm, S1 normal heart sound present, S2 normal heart sound present, No gallops present (Cardio), No murmurs present (Cardio), No rub (Cardio) and Peripheral pulses 2+ throughout RATE: regular rate RHYTHM: regular rhythm HEART SOUNDS: S1 normal heart sound present and S2 normal heart sound present PERIPHERAL PULSES: Peripheral pulses 2+ throughout GI: COMMON NORMALS: Normal to inspection, nondistended, normoactive bowel sounds present, Soft to palpation, non-tender, No hepatosplenomegaly present and no masses AUSCULTATION: Yes normoactive bowel sounds PALPATION: Yes Soft to palpation and Yes No hepatosplenomegaly present RECTAL EXAM: Yes deferred Extremity: COMMON NORMALS: no clubbing, cyanosis or edema and no pedal edema Neuro: COMMON NORMALS: patient oriented x3 Urinary Catheter Management: Collins: Cath Placed During This Visit: yes Reason for Continuing Indwelling Catheter: Acute Urinary Retention or Obst ruction Urinary Catheter Date of Insertion: 08/24/22 Urinary Catheter Time of Insertion: 13:47 Data 09/01/22 04:48 09/01/22 04:48 Micro: Microbiology 08/26/22 18:08 Blood Culture - Final Blood NO GROWTH AFTER 5 DAYS 08/26/22 18:08 Blood Culture - Final Blood NO GROWTH AFTER 5 DAYS A&P Assessment and plan (1) Acute respiratory failure with hypoxia: (2) Secondary bacterial pneumonia: (3) Influenza A: (4) PVD (peripheral vascular disease): (5) Hypertension: (6) Hypothyroidism: Qualifiers: Hypothyroidism type: unspecified Qualified Code(s): E03.9 - Hypothyroidism, unspecified (7) GERD (gastroesophageal reflux disease): Qualifiers: Esophagitis presence: without esophagitis Qualified Code(s): K21.9 - Gastro-esophageal reflux disease without esophagitis (8) Hyperlipemia, mixed: (9) COPD (chronic obstructive pulmonary disease): (10) Diabetes: (11) Sepsis: (12) Lactic acidosis: Plan Assessment: Sepsis secondary to influenza A with superimposed bacterial pneumonia Acute hypoxic respiratory failure secondary to influenza A, and superimposed bacterial pneumonia 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 Patient completed Tamiflu course, has been on broad-spectrum antibiotics namely vancomycin and cefepime, IV diuresis, DuoNebs, Solu-Medrol. CTA chest done during the hospital stay: Failed to show any pulmonary embolism, is showing, bilateral basal infiltrates, mucous plugging, emphysematous changes, blood culture has grown Staphylococcus epidermis 1 out of 4 bottle, Repeat blood culture has been negative so far, MRSA PCR negative, urine culture has grown Pseudomonas, Sputum gram stain and culture: Has grown few gram-positive cocci in pairs pending identification Renal ultrasound: ?No renal obstruction or mass. Markedly enlarged prostate. 2D echo done during the hospital stay: Has shown normal LV size, moderately decreased LV systolic function with LVEF of 35%, moderate global left ventricular hypokinesis, no significant change from prior study. Plan for today: Patient has continued to require high supplemental oxygen, possibly secondary to his recent episode of influenza with superimposed bacterial pneumonia, has worsened the pre-existing extensive COPD. Prior to coming to the hospital patient was not using any oxygen at home, he was not requiring any home inhaler. We will initiate him on IV steroid, continue with conservative respiratory sup port measures, will discontinue vancomycin today Try to titrate oxygen down, I am hoping that I will be able to discharge him in a day or 2 on home oxygen, he will need to follow-up with pulmonary as outpatient. Attestations Medical Necessity Statement*: Patient is in hospital for management of pneumonia. Coding Level of Care Code Acute Paint Roller Winder for [facility] Fwd Exam Detailed Diagnoses Acute respiratory failure with hypoxia J96.01 Secondary bacterial pneumonia J15.9 Influenza A J10.1 PVD (peripheral vascular disease) I73.9 Hypertension I10 Hypothyroidism E03.9 Hypothyroidism type: unspecified GERD (gastroesophageal reflux disease) K21.9 Esophagitis presence: without esophagitis Hyperlipemia, mixed E78.2 COPD (chronic obstructive pulmonary disease) J44.9 Diabetes E11.9 Sepsis A41.9 Lactic acidosis E87.20
[2022-09-01 15:49] LABS: Vancomycin Trough 32.8 ug/mL (10-15)
[2022-09-01 16:47] LABS: Glucose Point of Care 156 mg/dL (70-110)
--- NOTE | 2022-09-01 17:07 | PC.NURSE ---
Dr. Dominguez DC'd the Vancomycin IV just seven minutes (1448) after I had hung the medication. It appears that a Vanc trough was due as scheduled from the , as ordered by Dr. Hackett. Lab felicity the vanc trough at 1501, while the medication as infusing. Critical value (36) was called after 1540. I went to discontinue the medication and found that an estimated 75ml remained in the bag. Dr. Dominguez and the lab were notified.
[2022-09-01] MEDS: enoxaparin 40 mg/0.4 mL Syringe SUBCUT (17:14)
[2022-09-01 20:56] LABS: Glucose Point of Care 191 mg/dL (70-110)
[2022-09-02] VITALS (14 sets, daily range): BP systolic 113–133; BP diastolic 58–69; PULSE 57–86; RESP 17–20; TEMP 36.3–36.6; O2SAT 78–95
[2022-09-02] MEDS: HYDROcodone-acetaminophen 5-325 mg Tablet 1 TAB PO ×2 (02:06→06:41)
[2022-09-02] MEDS: ipratropium-albuterol 3 mL Neb INHALATION ×3 (04:16→11:22)
[2022-09-02] MEDS: potassium chloride ER 20 mEq Tablet PO (06:41)
[2022-09-02] MEDS: insulin glargine 100 units/1 mL 5 UNIT SUBCUT (06:41)
[2022-09-02] MEDS: aspirin 81 mg EC Tablet PO (06:41)
[2022-09-02 06:45] LABS: Glucose Point of Care 161 mg/dL (70-110)
[2022-09-02] MEDS: budesonide 0.5 mg/2 mL Neb INHALATION (07:23)
[2022-09-02] MEDS: sodium chloride 3.5% neb 4 mL Neb INHALATION (07:23)
[2022-09-02 09:44] LABS: Anion Gap 16.6 (5-19); Blood Urea Nitrogen 20 mg/dL (8-23); Calcium 8.8 mg/dL (8.5-10.5); Carbon Dioxide 24 mmol/L (22-29); Chloride 89 mmol/L (98-107); Glucose 165 mg/dL (65-115); Osmolality Calculated 266 mOsm/kg (285-295); Potassium 4.6 mmol/L (3.5-5.1); Sodium 125 mmol/L (136-145)
[2022-09-02] MEDS: gabapentin 300 mg Capsule PO (10:10)
[2022-09-02] MEDS: tamsulosin 0.4 mg Capsule PO (10:10)
[2022-09-02] MEDS: clopidogrel 75 mg Tablet PO (10:11)
[2022-09-02] MEDS: atorvastatin 40 mg Tablet PO (10:11)
[2022-09-02] MEDS: levothyroxine 50 mcg Tablet PO (10:11)
[2022-09-02] MEDS: pantoprazole DR 40 mg Tablet PO (10:11)
[2022-09-02] MEDS: FUROsemide 40 mg Tablet PO (10:11)
[2022-09-02] MEDS: insulin lispro 100 unit/1 mL SUBCUT ×2 (10:23→12:30)
[2022-09-02 11:05] LABS: Glucose Point of Care 244 mg/dL (70-110)
--- NOTE | 2022-09-02 11:12 | PC.SOCIAL ---
IMM Updated. Updated pt on IMM. No questions voiced. Provided pt a copy. Initialed, dated, & timed copy in chart.
[2022-09-02] MEDS: cefepime 2,000 MG in sodium chloride 0.9% (plus) 50 ML 100 MG IV (11:16)
[2022-09-02] MEDS: sodium chloride 0.9% 500 ML IV (11:17)
--- NOTE | 2022-09-02 15:55 | PM.DCS ---
Discharge Providers Date of Admission: 08/22/22 13:47 Date of Discharge: September 02, 2022 Attending Provider at Admission: Prasanth Prieto MD Attending Provider at Discharge: Asa Dominguez MD Primary Care Provider: ANNE MARIE Beverly Diagnoses at Discharge Discharge Diagnosis (1) Acute respiratory failure with hypoxia: Status: Acute (2) Secondary bacterial pneumonia: Status: Acute (3) Influenza A: Status: Acute (4) PVD (peripheral vascular disease): Status: Acute (5) Hypertension: Status: Acute (6) Hypothyroidism: Status: Acute Qualifiers: Hypothyroidism type: unspecified Qualified Code(s): E03.9 - Hypothyroidism, unspecified Permanent problem details: -Noted elevated TSH, normal free T4 -Continue levothyroxine (7) GERD (gastroesophageal reflux disease): Status: Acute Qualifiers: Esophagitis presence: without esophagitis Qualified Code(s): K21.9 - Gastro-esophageal reflux disease without esophagitis (8) Hyperlipemia, mixed: Status: Acute (9) COPD (chronic obstructive pulmonary disease): Status: Acute (10) Diabetes: Status: Acute (11) Sepsis: Status: Acute (12) Lactic acidosis: Status: Acute Reason for Visit Reason for Visit: cough, flu like symptoms Hospital Course Hospital Course 81 year old male with past medical history of diabetes, coronary artery disease s/p CABG, s/p recent intervention to RCA with 2 RADHA 02/2021 ( patent POZO to LAD and SVG to OM however SVG to RCA was occluded. 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 Patient completed Tamiflu course, has been on broad-spectrum antibiotics namely vancomycin and cefepime, IV diuresis, DuoNebs, Solu-Medrol. Completed Tamiflu course. CTA chest done during the hospital stay: Failed to show any pulmonary embolism, is showing, bilateral basal infiltrates, mucous plugging, emphysematous changes, blood culture has grown Staphylococcus epidermis 1 out of 4 bottle,Repeat blood culture was negative, MRSA PCR negative, urine culture has grown Pseudomonas,completed antibiotic course for UTI. Prior to discharge he was slightly over diuresed, as his serum sodium had decreased to 127, he received 500 cc normal saline bolus prior to discharge, had no significant signs of hyponatremia.No Lasix was continued on discharge.Sputum gram stain and culture: Has grown few gram-positive cocci in pairs pending identification,Renal ultrasound:??No renal obstruction or mass. Markedly enlarged prostate.? 2D echo done during the hospital stay: Has shown normal LV size, moderately decreased LV systolic function with LVEF of 35%, moderate global left ventricular hypokinesis, no significant change from prior study.Overall patient was responding well to above medical management, at the time of discharge unfortunately he qualified for 7 L oxygen through pendent nasal cannula, he was discharged home on Augmentin p.o. for additional 7 days as well as albuterol and Pulmicort inhaler.He has been asked to follow pulmonary as outpatient.Patient was discharged in stable condition to home.He will continue to follow PCP as outpatient. Physical Exam Const: COMMON NORMALS: patient oriented x3 HENMT: COMMON NORMALS: normocephalic and atraumatic HEAD & SCALP: normocephalic and atraumatic Resp: COMMON NORMALS: clear to auscultation bilaterally AUSCULTATION: clear to auscultation bilaterally OTHER: Diminished air entry bilaterally Cardio: COMMON NORMALS: regular rate, regular rhythm, S1 normal heart sound present, S2 normal heart sound present, No gallops present (Cardio), No murmurs present (Cardio), No rub (Cardio) and Peripheral pulses 2+ throughout RATE: regular rate RHYTHM: regular rhythm HEART SOUNDS: S1 normal heart sound present and S2 normal heart sound present PERIPHERAL PULSES: Peripheral pulses 2+ throughout GI: COMMON NORMALS: Normal to inspection, nondistended, normoactive bowel sounds present, Soft to palpation, non-tender, No hepatosplenomegaly present and no masses AUSCULTATION: Yes normoactive bowel sounds PALPATION: Yes Soft to palpation and Yes No hepatosplenomegaly present RECTAL EXAM: Yes deferred Extremity: COMMON NORMALS: no clubbing, cyanosis or edema and no pedal edema Neuro: COMMON NORMALS: patient oriented x3 Urinary Catheter Management: Collins: Cath Placed During This Visit: yes Reason for Continuing Indwelling Catheter: Acute Urinary Retention or Obstruction Urinary Catheter Date of Insertion: 08/24/22 Urinary Catheter Time of Insertion: 13:47 Discharge Data Studies Completed and Pending Completed Studies During Hospitalization Category Date Time Status CT angio chest PE protcl [id number] Stat Cat Scan 08/27/22 11:[address] chest wo con [id number] Routine Cat Scan 08/24/22 09:59 Completed XR chest 1V portable [id number] Routine Exams 08/25/22 07:00 Completed XR chest 1V portable [id number] Routine Exams 08/31/22 11:22 Completed XR chest 1V portable [id number] Stat Exams 08/27/22 08:07 Completed XR chest 1V portable [id number] Urgent Exams 08/22/22 09:33 Completed CV. echo wo/w contrast [id number] Stat Ultrasound 08/27/22 09:33 Completed US renal BI* [id number] Routine Ultrasound 08/24/22 09:59 Completed Radiology Impressions Chest CT 08/24/22 09:59 IMPRESSION: 1. Comparison CT 08/24/2022. Interval development of mucoid impaction/peribronchial thickening and ill-defined patchy opacities in the left lung base suggesting developing bronchitis/pneumonia. 2. Moderate pulmonary similar to previous exam. 3. Coronary calcification and esophageal findings as above. 4. Cholelithiasis. Renal Ultrasound 08/24/22 09:59 IMPRESSION: 1. No renal obstruction or mass. 2. Markedly enlarged prostate. Chest CTA 08/27/22 11:58 IMPRESSION: 1. Negative for pulmonary embolus. 2. Scattered prominent subcentimeter short axis mediastinal lymph nodes, nonspecific. 3. Bilateral dependent airspace infiltrates. 4. Emphysematous changes. 5. Mucosal plugging seen liver multiple bilateral lower lung field bronchi. Chest X-Ray 08/31/22 11:22 IMPRESSION: 1. Pulmonary hyperinflation probably indicating COPD. 2. Chronic plaque atelectasis in the left base. Probable trace left basal pleural effusion. Laboratory Results WBC 14.3 10^3/uL (4.0-10.0) H 09/01/22 04:48 RBC 4.56 10^6/uL (4.1-5.3) 09/01/22 04:48 Hgb 13.3 g/dL (11.7-16.6) 09/01/22 04:48 Hct 39.7 % (42.0-52.0) L 09/01/22 04:48 MCV 87.1 fl (80-94) 09/01/22 04:48 MCH 29.2 pg (28.0-34.0) 09/01/22 04:48 MCHC 33.5 g/dL (30.0-36.0) 09/01/22 04:48 RDW 13.7 % (12.1-15.1) 09/01/22 04:48 Plt Count 330 10^3/cmm (130-400) 09/01/22 04:48 MPV 9.4 fL (7.4-10.4) 09/01/22 04:48 Neut % (Auto) 79.0 % 09/01/22 04:48 Lymph % (Auto) 9.3 % 09/01/22 04:48 [place] % (Auto) 7.0 % 09/01/22 04:48 Eos % (Auto) 0.4 % 09/01/22 04:48 Baso % (Auto) 0.1 % 09/01/22 04:48 Neut # (Auto) 11.25 10^3/uL (1.8-7.7) H 09/01/22 04:48 Lymph # (Auto) 1.3 10^3/uL (0.8-4.8) 09/01/22 04:48 [place] # (Auto) 1.0 10^3/uL (0.2-0.9) H 09/01/22 04:48 Eos # (Auto) 0.1 10^3/uL (0.0-0.8) 09/01/22 04:48 Baso # (Auto) 0.0 10^3/uL (0.0-0.1) 09/01/22 04:48 Nucleated RBC % (auto) 0 % 09/01/22 04:48 Nucleated RBCs # 0.0 /100WBC 09/01/22 04:48 APTT 78.1 SECONDS (23.9-36.7) H 08/28/22 05:08 D-Dimer 3.08 ug/mIFEU (0-0.59) H 08/27/22 09:42 Specimen Type Arterial 08/27/22 09:41 Sample Site Brachial, right 08/27/22 09:41 ABG pH 7.49 (7.35-7.45) H 08/27/22 09:41 ABG pCO2 33.7 mmHg (35-45) L 08/27/22 09:41 ABG pO2 128.0 mmHg (80.0-100.0) H 08/27/22 09:41 ABG HCO3 25.5 mmol/L (22-26) 08/27/22 09:41 ABG O2 Saturation 95.2 08/27/22 05:28 ABG Base Excess 2.6 mmol/L (-2.0-2.0) H 08/27/22 09:41 Erlin Test N/a 08/27/22 09:41 A-a O2 Gradient 5.1 mmHg (5-10) 08/27/22 05:28 Hematocrit 44.5 % (42-52) 08/27/22 09:41 Hgb O2 Saturation 93.6 % (95-100) L 08/27/22 05:28 Carboxyhemoglobin 1.0 %THgb (0.4-20.1) 08/27/22 05:28 Methemoglobin 0.7 % (0.4-1.5) 08/27/22 05:28 Total Hemoglobin 13.7 g/dL (14-18) L 08/27/22 05:28 Sodium 132.0 mmol/L (131-143) 08/27/22 05:28 Potassium 4.1 mmol/L (3.5-5.0) 08/27/22 05:28 Glucose 131.0 mg/dL (70-115) H 08/27/22 05:28 Ionized Calcium 1.2 mmol/L (1.1-1.4) 08/27/22 05:28 O2 Delivery Device Bipap 08/27/22 09:41 O2 Liters/Min 12.0 % 08/27/22 05:28 FiO2 90.0 % 08/27/22 09:41 Computer Graphic Artist ID [id number] 08/27/22 09:41 Sodium 125 mmol/L (136-145) L 09/02/22 08:54 Potassium 4.6 mmol/L (3.5-5.1) 09/02/22 08:54 Chloride 89 mmol/L (98-107) L 09/02/22 08:54 Carbon Dioxide 24 mmol/L (22-29) 09/02/22 08:54 Anion Gap 16.6 (5-19) 09/02/22 08:54 BUN 20 mg/dL (8-23) 09/02/22 08:54 Creatinine 0.7 mg/dL (0.7-1.2) 09/02/22 08:54 GFR Calculation Not Reportable 09/02/22 08:54 Glucose 165 mg/dL (65-115) H 09/02/22 08:54 POC Glucose 244 mg/dL (70-110) H 09/02/22 11:02 Calculated Osmolality 266 mOsm/kg (285-295) L 09/02/22 08:54 Lactic Acid 1.7 mmol/L (0.5-2.2) 08/22/22 10:21 Lactate 3.0 mmol/L (0.5-2.2) H 08/25/22 02:35 Calcium 8.8 mg/dL (8.5-10.5) 09/02/22 08:54 Phosphorus 2.6 mg/dL (2.5-4.5) D 08/25/22 02:35 Magnesium 2.1 mg/dL (1.7-2.3) 08/30/22 08:50 Total Bilirubin 0.2 mg/dL (0.15-1.2) 08/25/22 02:35 AST 21 U/L (0-40) 08/25/22 02:35 ALT 9 U/L (0-41) 08/25/22 02:35 Alkaline Phosphatase 65 U/L (40-130) 08/25/22 02:35 Troponin T Baseline 20 ng/L (0-15) H 08/30/22 08:50 Troponin T 120 Minute 25.30 ng/L (0-15) H 08/30/22 10:37 Delta Troponin T 5.30 ABS# (0-10) 08/30/22 10:37 Troponin T Hi Sens 6Hr 20.43 ng/L (0-15) H 08/30/22 14:50 Troponin T Hi Sens 6Hr Delta 0.43 ng/L (0-12) 08/30/22 14:50 C-Reactive Protein 62.8 mg/L (0.0-4.9) H 08/25/22 02:35 NT-Pro-B Natriuret Pep 734 pg/mL (0-450) H 08/30/22 03:30 Total Protein 5.6 g/dL (6.6-8.7) L 08/25/22 02:35 Albumin 2.9 g/dL (3.5-5.2) L 08/25/22 02:35 Globulin 2.7 g/dL (1.3-4.6) 08/25/22 02:35 Procalcitonin 0.20 ng/mL (0-0.5) 08/25/22 02:35 Urine Color Yellow (Yellow) 08/22/22 10:32 Urine Appearance Sl hazy (CLEAR) A 08/22/22 10:32 Urine pH 6 (5-7) 08/22/22 10:32 Ur Specific [place] 1.015 (1.005-1.030) 08/22/22 10:32 Urine Protein Trace (Negative) 08/22/22 10:32 Urine Glucose (UA) Norm (Normal) 08/22/22 10:32 Urine Ketones 1+ (Negative) H 08/22/22 10:32 Urine Blood 3+ (Negative) H 08/22/22 10:32 Urine Nitrate Negative (Negative) 08/22/22 10:32 Urine Bilirubin Neg (Negative) 08/22/22 10:32 Urine Urobilinogen Norm mg/dL (Negative) 08/22/22 10:32 Ur Leukocyte Esterase 2+ (Negative) H 08/22/22 10:32 Urine RBC 15-25 /hpf (0-2) H 08/22/22 10:32 Urine WBC 40-55 /hpf (0-5) H 08/22/22 10:32 Ur Squamous Epith Cells Rare /hpf (0-5) 08/22/22 10:32 Amorphous Sediment Not Reportable 08/22/22 10:32 Urine Bacteria 2+ /hpf (NONE) H 08/22/22 10:32 Urine Mucus Trace /hpf 08/22/22 10:32 Nasal Influ A H1 2008 PCR Detected (NOT DETECT) A 08/24/22 13:13 Vancomycin Trough 32.8 ug/mL (10-15) H* 09/01/22 15:01 Adenovirus (PCR) Not detected (NOT DETECT) 08/22/22 09:57 C. pneumoniae DNA (PCR) Not detected (NOT DETECT) 08/22/22 09:57 Coronavirus 229E (PCR) Not detected (NOT DETECT) 08/24/22 11:00 Human Metapneumovir PCR Not detected (NOT DETECT) 08/22/22 09:57 Influenza A (H1) PCR Not detected (NOT DETECT) 08/24/22 13:13 Influenza A (H3) PCR Not detected (NOT DETECT) 08/24/22 13:13 Influenza Type A (PCR) Detected (NOT DETECT) A 08/24/22 13:13 Influenza Type B (PCR) Not detected (NOT DETECT) 08/24/22 13:13 M. pneumoniae (PCR) Not detected (NOT DETECT) 08/22/22 09:57 Parainfluenza 1 (PCR) Not detected (NOT DETECT) 08/22/22 09:57 Parainfluenza 2 (PCR) Not detected (NOT DETECT) 08/22/22 09:57 Parainfluenza 3 (PCR) Not detected (NOT DETECT) 08/22/22 09:57 Parainfluenza 4 (PCR) Not detected (NOT DETECT) 08/22/22 09:57 RSV Type A (PCR) Not detected (NOT DETECT) 08/22/22 09:57 RSV Type B (PCR) Not detected (NOT DETECT) 08/22/22 09:57 Entero/Rhino (PCR) Not detected (NOT DETECT) 08/22/22 09:57 SARS-CoV-2 (PCR) Not detected (NOT DETECT) 08/24/22 11:00 Vitals Last Vital Signs Temp 97.4 F L 09/02/22 11:31 Pulse 70 09/02/22 11:31 Resp 17 09/02/22 11:31 BP 133/69 09/02/22 11:31 Pulse Ox 91 09/02/22 11:31 O2 Del Method 09/02/22 11:30 O2 Flow Rate 7 09/02/22 11:30 FiO2 40 09/02/22 04:16 Discharge Plan Discharge Patient Disposition: Home Condition: Stable Prescriptions: New Pulmicort Flexhaler 180 mcg/actuation aerosol powdr breath activated 1 inh inhalation BID Qty: 1 0RF Ventolin HFA 90 mcg/actuation HFA aerosol inhaler 1 inh inhalation Q6H PRN (Reason: shortness of breath or wheezing) Qty: 8.5 0RF Augmentin 500-125 mg tablet 1 tab PO BID 7 Days Qty: 14 0RF Continued aspirin 81 mg tablet,delayed release (DR/EC) 81 mg PO QAM docusate sodium [Colace] 100 mg capsule 100 mg PO DAILY PRN (Reason: Constipation) glipizide 5 mg tablet See Rx Instructions .ROUTE .COMPLEX Qty: 45 1RF Dose Instruction: TAKE 1/2 (ONE-HALF) TABLET BY MOUTH ONCE DAILY AT 0800 Rx Instructions: TAKE 1/2 (ONE-HALF) TABLET BY MOUTH ONCE DAILY AT 0800 tamsulosin 0.4 mg capsule See Rx Instructions .ROUTE .COMPLEX Qty: 90 1RF Dose Instruction: Take 1 capsule by mouth once daily Rx Instructions: Take 1 capsule by mouth once daily (DME) blood-glucose meter [Blood Glucose Monitoring] Kit See Rx Instructions .ROUTE .MEDSUPPLY Qty: 1 0RF Rx Instructions: As directed (DME) Blood Glucose Test Strip See Rx Instructions .Route Qty: 50 2RF Rx Instructions: As directed (DME) lancets [Fingerstix Lancets] Misc See Rx Instructions .Route Qty: 100 0RF Rx Instructions: As directed Altace 10 mg capsule 10 mg PO DAILY@0800 Qty: 90 3RF levothyroxine 50 mcg tablet See Rx Instructions .ROUTE .COMPLEX Qty: 90 0RF Dose Instruction: TAKE 1 TABLET BY MOUTH ONCE DAILY IN THE MORNING Rx Instructions: TAKE 1 TABLET BY MOUTH ONCE DAILY IN THE MORNING simvastatin 40 mg tablet See Rx Instructions .ROUTE .COMPLEX Qty: 90 0RF Dose Instruction: TAKE 1 TABLET BY MOUTH ONCE DAILY AT 1999 Rx Instructions: TAKE 1 TABLET BY MOUTH ONCE DAILY AT 1999 alendronate [Fosamax] 70 mg tablet 70 mg PO Q7D Qty: 13 1RF Rx Instructions: ON WEDNESDAY gabapentin 300 mg capsule See Rx Instructions .ROUTE .COMPLEX Qty: 90 1RF Dose Instruction: TAKE 1 CAPSULE BY MOUTH THREE TIMES DAILY AT 0800,1400,2000 Rx Instructions: TAKE 1 CAPSULE BY MOUTH THREE TIMES DAILY AT 0800,1400,2000 clopidogrel 75 mg tablet See Rx Instructions .ROUTE .COMPLEX Qty: 90 0RF Dose Instruction: Take 1 tablet by mouth once daily Rx Instructions: Take 1 tablet by mouth once daily omeprazole 20 mg capsule,delayed release(DR/EC) See Rx Instructions .ROUTE .COMPLEX Qty: 60 0RF Dose Instruction: Take 1 capsule by mouth twice daily Rx Instructions: Take 1 capsule by mouth twice daily hydrocodone-acetaminophen 5-325 mg tablet 1 - 2 tab PO .Q4-6H Qty: 40 0RF Discharge Orders: Discharge Order (Routine); Ordered 09/02/22 Ordered By: Asa Dominguez Other Ambulatory Orders: DME: Oxygen (Order) Location: None Selected Ordered By: Asa Dominguez Referrals: [facility] [Outside] Datar,Wilman Miller MD [Physician] - 12/03/22 10:45 am Dulce Maria Alonzo FNP [Primary Care Provider] - 09/15/22 10:00 am Patient Instructions: Albuterol (By breathing), Amoxicillin/Clavulanate Potassium (By mouth), Budesonide (By breathing), Influenza (GEN), Using Oxygen at Home (GEN), Hypoxia (GEN), Opioid Safety Discharge Attestations Time Spent in Discharge Care*: greater than 30 min Status at Discharge: Cognitive status at discharge: cognitively intact, Behavioral status at discharge: cooperative and independent in ADL's, Quality Metrics Clinical Quality Measures [ No reported AMI, CVA or VTE this stay] Coding Level of Care Code Acute Chg [facility] note Diagnoses Acute respiratory failure with hypoxia J96.01 Secondary bacterial pneumonia J15.9 Influenza A J10.1 PVD (peripheral vascular disease) I73.9 Hypertension I10 Hypothyroidism E03.9 Hypothyroidism type: unspecified GERD (gastroesophageal reflux disease) K21.9 Esophagitis presence: without esophagitis Hyperlipemia, mixed E78.2 COPD (chronic obstructive pulmonary disease) J44.9 Diabetes E11.9 Sepsis A41.9 Lactic acidosis E87.20
== END 2022-09-02 16:15 | disposition home or self-care (01) | DRG 193 ==
LOC: ER 13:09 → MEDSURG 16:07 → ICU 08-24 14:37 → MEDSURG 08-26 22:12
PROVIDERS: Family Medicine; Internal Medicine; Admitting Provider Internal Medicine; Emergency Provider Physician Assistant; PCP Nurse Practitioner Family; Visit Provider Internal Medicine
DX: J10.00 Influenza due to other identified influenza virus with unspecified type of pneumonia (principal); A41.9 Sepsis, unspecified organism; J96.01 Acute respiratory failure with hypoxia; I50.23 Acute on chronic systolic (congestive) heart failure; N17.9 Acute kidney failure, unspecified; I13.0 Hypertensive heart and chronic kidney disease with heart failure and stage 1 through stage 4 chronic kidney disease, or unspecified chronic kidney disease; E87.20 Acidosis, unspecified; N39.0 Urinary tract infection, site not specified; J15.9 Unspecified bacterial pneumonia; J43.9 Emphysema, unspecified; E11.51 Type 2 diabetes mellitus with diabetic peripheral angiopathy without gangrene; N18.9 Chronic kidney disease, unspecified; E11.22 Type 2 diabetes mellitus with diabetic chronic kidney disease; E03.9 Hypothyroidism, unspecified; K21.9 Gastro-esophageal reflux disease without esophagitis; E78.2 Mixed hyperlipidemia; I25.10 Atherosclerotic heart disease of native coronary artery without angina pectoris; Z95.1 Presence of aortocoronary bypass graft; Z95.5 Presence of coronary angioplasty implant and graft; Z89.612 Acquired absence of left leg above knee; Z89.511 Acquired absence of right leg below knee; B96.5 Pseudomonas (aeruginosa) (mallei) (pseudomallei) as the cause of diseases classified elsewhere; Z66 Do not resuscitate; R33.9 Retention of urine, unspecified; Z87.891 Personal history of nicotine dependence; Z86.16 Personal history of COVID-19; Z86.711 Personal history of pulmonary embolism; Z79.891 Long term (current) use of opiate analgesic; Z79.02 Long term (current) use of antithrombotics/antiplatelets; Z79.84 Long term (current) use of oral hypoglycemic drugs; Z79.82 Long term (current) use of aspirin
CPT/HCPCS: 36415; 36416; 36600; 51702; 51798; 71045; 71250; 71275; 76770; 80048; 80051; 80053; 80069; 80202; 81001; 82330; 82803; 82805; 82962; 83605; 83735; 83880; 84100; 84145; 84484; 85025; 85378; 85730; 86140; 87040; 87070; 87077; 87086; 87150; 87186; 87205; 87486; 87581; 87631; 87633; 87635; 87641; 92523; 92610; 93005; 94640; 94660; 94668; 94669; 94760; 94762; 96365; 96372; 97110; 97162; 97530; 99285; C8929; J0692; J1644; J1650; J1815; J1940; J1956; J2920; J3370; J7030; J7040; J7050; J7512; J7608; J7626; Q9956; Q9967

== ENCOUNTER → 2022-09-15 13:17 | Outpatient (BNVA) | payer MEDICARE, MEDICAID, SELFPAY | PROVIDERS: PCP Nurse Practitioner Family; Visit Provider Internal Medicine Cardiovascular Disease | DX: I25.10 Atherosclerotic heart disease of native coronary artery without angina pectoris (principal); I73.9 Peripheral vascular disease, unspecified; J44.9 Chronic obstructive pulmonary disease, unspecified; Z87.891 Personal history of nicotine dependence; I10 Essential (primary) hypertension | CPT/HCPCS: 99214; Q3014 ==

== ENCOUNTER → 2022-10-26 13:08 | Outpatient (BNVA) | payer MEDICARE, MEDICAID, SELFPAY | PROVIDERS: PCP Nurse Practitioner Family; Visit Provider Thoracic Surgery (Cardiothoracic Vascular Surgery) | DX: I96 Gangrene, not elsewhere classified (principal); L89.892 Pressure ulcer of other site, stage 2 | CPT/HCPCS: 97597; 99213; A6021; A6210 ==

== ENCOUNTER → 2022-11-02 14:08 | Outpatient (BNVA) | payer MEDICARE, MEDICAID, SELFPAY | PROVIDERS: PCP Nurse Practitioner Family; Visit Provider Thoracic Surgery (Cardiothoracic Vascular Surgery) | DX: I96 Gangrene, not elsewhere classified (principal); L89.892 Pressure ulcer of other site, stage 2 | CPT/HCPCS: 99212; A6212 ==

== ENCOUNTER → 2022-12-03 10:32 | Outpatient (BNVA) | payer MEDICARE, MEDICAID, SELFPAY | PROVIDERS: PCP Nurse Practitioner Family; Visit Provider Internal Medicine Pulmonary Disease | DX: J43.9 Emphysema, unspecified (principal); Z87.891 Personal history of nicotine dependence | CPT/HCPCS: 99204 ==

== ENCOUNTER 2022-12-09 16:48 | Emergency (ER) | payer MEDICARE, MEDICAID, SELFPAY ==
[2022-12-09 16:50] VITALS: BP 120/65; PULSE 79; RESP 21; TEMP 37.2; O2SAT 95; BMI 21.7
--- NOTE | 2022-12-09 16:52 | ECG_ITS ---
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 Measurements Intervals [place] Rate: 76 P: 67 OK: 162 QRS: -47 QRSD: 126 T: 73 QT: 376 QTc: 425 Interpretive Statements SINUS RHYTHM WITH FREQUENT VENTRICULAR PREMATURE COMPLEXES LEFT AXIS DEVIATION [QRS AXIS < -30] POSSIBLE ANTERIOR MYOCARDIAL INFARCTION , OF INDETERMINATE AGE [30 ms Q WAVE IN V3/V4, OR R < 0.2 mV IN V4] Compared to ECG 08/30/2022 10:56:27 Myocardial infarct finding now present Intraventricular conduction delay no longer present Electronically Signed On 12-09-2022 23:55:36 CDT by Jeffery Wilkes M.D. [id number]
--- NOTE | 2022-12-09 17:04 | XRR_ITS ---
PROCEDURE INFORMATION: Exam: XR Chest Exam date and time: 12/09/2022 5:26 PM Age: 82 years old Clinical indication: Cough; Additional info: Dyspnea/cough TECHNIQUE: Imaging protocol: Radiologic exam of the chest. Views: 1 view. COMPARISON: CR XR chest 1V portable [id number] 08/31/2022 11:38 AM FINDINGS: Lungs: Left lower lobe atelectasis is seen. No consolidation. Pleural spaces: Unremarkable. No pleural effusion. No pneumothorax. Heart/Mediastinum: Unremarkable. No cardiomegaly. Bones/joints: Metallic sternotomy wires are present. XR/XR chest 1V portable [id number] IMPRESSION: 1. Left lower lobe atelectasis 2. Metallic sternotomy wires are present 3. Otherwise No acute findings.
--- NOTE | 2022-12-09 17:05 | W.ED.WEAKNES ---
Documented by User: Ravindra Mitchell DO 12/10/22 06:32 HPI - Weakness General: Chief complaint: Weakness Stated complaint: weakness Time Seen by Provider: 12/09/22 16:52 Source: patient Mode of arrival: EMS History of Present Illness: 82-year-old male presents emergency complaining of generally feeling weak. States it began yesterday/last night. He denies chest pain denies abdominal pain was given fluids in route to states he generally feels poorly. He is a bilateral lower extremity amputee due to peripheral vascular disease he has had continued phantom pains. He denies fever sweats or chills. No dysuria urgency or frequency vomiting or diarrhea. He tells me he is chronically on oxygen at 6 L/min however on room air he is 94 to 95%. MD Complaint: generalized weakness Onset (ago): day(s) (1) Location: generalized Severity: moderate Relieving factors: none Exacerbating factors: none Associated symptoms: Denies chest pain, chills, confusion, melena, decreased appetite, diaphoresis, dysuria, easy bruising, fever(s), headache(s), myalgias, nausea, rash, short of breath, syncope or vomiting Review of Systems Const: Reports: fatigue and malaise; Denies: fever(s), chills or diaphoresis ENMT: Denies: throat pain, ear or mastoid pain, nasal discharge or nasal congestion Card: Denies: chest pain, palpitations, irregular heart rhythm or syncope Resp: Denies: dyspnea, productive cough or non-productive cough GI: Denies: abdominal pain, nausea, vomiting or melena : Denies: dysuria, urinary frequency or urinary urgency Musc: Denies: neck pain or back pain Skin/Breast: Denies: rash or pruritus Neuro: Denies: headache(s) or confusion Jeff/Lymph: Denies: easy bruising PFSH ED PFSH: Medical History Abnormal stress test Above knee amputation of left lower extremity Acute respiratory failure with hypoxia Acute respiratory failure with hypoxia Acute UTI CAD (coronary artery disease) Chest pain Clinical diagnosis of COVID-19 COPD (chronic obstructive pulmonary disease) COVID-19 Cystitis Diabetes Emphysema/COPD Encounter for postoperative care Encounter for postoperative care Encounter for postoperative care Epididymitis Fever Fracture of femoral neck, left GERD (gastroesophageal reflux disease) GERD (gastroesophageal reflux disease) History of GI bleed Hx pulmonary embolism Hyperlipemia, mixed Hypertension Hypothyroidism -Noted elevated TSH, normal free T4 -Continue levothyroxine Hypoxia Influenza A Influenza vaccine needed Inguinal nodule Lactic acidosis Metabolic acidosis On anticoagulant therapy Onychodystrophy Painful orthopaedic hardware Peripheral arterial disease Pneumonia due to COVID-19 virus Pressure ulcer of BKA stump, stage 2 Protracted bacterial bronchitis PVD (peripheral vascular disease) Pyuria Secondary bacterial pneumonia Sepsis Subcapital fracture of left hip Testicular swelling, left Type 2 diabetes mellitus with complication, without long-term current use of insulin -A1c at goal-6.2 -Accuchecks, ISS, hypoglycemia precautions -consistent carb diet as tolerated URI with cough and congestion Urinary retention UTI (urinary tract infection) Surgical History H/O cataract extraction RIGHT History of below-knee amputation of right lower extremity History 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 Family History Mother Diabetes Hypertension Other CAD (coronary artery disease) Myocardial infarction Social History Smoking and tobacco status: former smoker Second hand smoke exposure: No Smoking risk assessment/counseling performed?: No Alcohol intake: never Desire information about alcohol rehabilitation?: No Counseling given: No Desire information about substance/drug rehabilitation?: No Counseling given: No Adopted: No Lives independently: Yes Household members: spouse Marital status: Current occupational status: retired Current gender identity: Male Physical Exam Const: GENERAL APPEARANCE: cooperative and comfortable ORIENTATION/CONSCIOUSNESS: Yes awake HENMT: COMMON NORMALS: normocephalic, atraumatic and hearing grossly normal bilaterally HEAD & SCALP: normocephalic and atraumatic Resp: COMMON NORMALS: normal respiratory effort, No retractions, No use of accessory muscles and clear to auscultation bilaterally AUSCULTATION: clear to auscultation bilaterally Cardio: COMMON NORMALS: regular rate, regular rhythm and No murmurs present (Cardio) RATE: regular rate RHYTHM: regular rhythm GI: COMMON NORMALS: Soft to palpation and No hepatosplenomegaly present AUSCULTATION: Yes normoactive bowel sounds PALPATION: Yes Soft to palpation, No Tenderness to palpation present (GI), No Guarding due to palpation present (GI) and Yes No hepatosplenomegaly present Extremity: COMMON NORMALS: normal to inspection and no clubbing, cyanosis or edema (Upper extremities) OTHER: Bilateral lower extremity amputations Skin: COMMON NORMALS: no rashes or lesions noted GENERAL SKIN EXAM: no rashes or lesions noted Course Vital Signs: Vital signs: Vital Signs Temperature 99.0 F 12/09/22 16:50 Pulse Rate 84 12/09/22 21:00 Respiratory Rate 27 H 12/09/22 21:00 Blood Pressure 117/60 12/09/22 21:00 Pulse Oximetry 92 12/09/22 21:00 Oxygen Delivery Me thod 12/09/22 16:50 MDM - Weakness Medical Decision Making White count is 13 6 UA is pending. Care signed out to Dr. Le at change of shift. See final notes for diagnosis and disposition. Patient presents here with weakness likely from a UTI I did offer him admission he states he feels improved and wants to go home I will treat him antibiotics at home he is to follow-up with his PCP and return if worsening he understands agrees to plan. Lab Data 12/09/22 16:46 12/09/22 16:46 Radiology Impressions Chest X-Ray 12/09/22 17:04 IMPRESSION: 1. Left lower lobe atelectasis 2. Metallic sternotomy wires are present 3. Otherwise No acute findings. Abdomen/Pelvis CT 12/09/22 19:17 IMPRESSION: 1. Fluid within the small bowel and colon without evidence of bowel wall thickening. This may reflect viral gastroenteritis in the appropriate clinical situation. 2. Findings suggesting a previous left femoral neck fracture repair with removal of the surgical hardware. 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 3. Cholelithiasis. 4. Small hiatal hernia. 5. Diffuse, moderate wall thickening of the bladder. In the correct clinical setting, this may suggest cystitis. Recommend correlation with laboratory findings. Alternatively, this may be secondary to chronic outlet obstruction. 6. Sigmoid diverticulosis. No evidence for diverticulitis. 7. The prostate gland is markedly enlarged. Nonspecific parenchymal calcifications in the prostate gland. Incidental/nonacute findings are listed in the report. 8. Incidental/nonacute findings are listed in the report. ADDENDUM: 12/09/222037 Please note the addendum to the original report: There is an inferior vena cava filter with the tip just below the level of the renal veins. Urgent results were discussed with AMANDA Duran on 12/09/2022 at 8:36 PM CDT. Laboratory Results WBC 13.6 10^3/uL (4.0-10.0) H 12/09/22 16:46 RBC 4.54 10^6/uL (4.1-5.3) 12/09/22 16:46 Hgb 13.3 g/dL (11.7-16.6) 12/09/22 16:46 Hct 39.6 % (42.0-52.0) L 12/09/22 16:46 MCV 87.2 fl (80-94) 12/09/22 16:46 MCH 29.3 pg (28.0-34.0) 12/09/22 16:46 MCHC 33.6 g/dL (30.0-36.0) 12/09/22 16:46 RDW 13.2 % (12.1-15.1) 12/09/22 16:46 Plt Count 261 10^3/cmm (130-400) 12/09/22 16:46 MPV 9.3 fL (7.4-10.4) 12/09/22 16:46 Neut % (Auto) 82.2 % 12/09/22 16:46 Lymph % (Auto) 7.1 % 12/09/22 16:46 [place] % (Auto) 9.5 % 12/09/22 16:46 Eos % (Auto) 0.3 % 12/09/22 16:46 Baso % (Auto) 0.4 % 12/09/22 16:46 Neut # (Auto) 11.18 10^3/uL (1.8-7.7) H 12/09/22 16:46 Lymph # (Auto) 1.0 10^3/uL (0.8-4.8) 12/09/22 16:46 [place] # (Auto) 1.3 10^3/uL (0.2-0.9) H 12/09/22 16:46 Eos # (Auto) 0.0 10^3/uL (0.0-0.8) 12/09/22 16:46 Baso # (Auto) 0.1 10^3/uL (0.0-0.1) 12/09/22 16:46 Nucleated RBC % (auto) 0 % 12/09/22 16:46 Nucleated RBCs # 0.0 /100WBC 12/09/22 16:46 Sodium 130 mmol/L (136-145) L 12/09/22 16:46 Potassium 3.9 mmol/L (3.5-5.1) 12/09/22 16:46 Chloride 94 mmol/L (98-107) L 12/09/22 16:46 Carbon Dioxide 24 mmol/L (22-29) 12/09/22 16:46 Anion Gap 15.9 (5-19) 12/09/22 16:46 BUN 12 mg/dL (8-23) 12/09/22 16:46 Creatinine 1.0 mg/dL (0.7-1.2) 12/09/22 16:46 GFR Calculation Not Reportable 12/09/22 16:46 Glucose 84 mg/dL (65-115) 12/09/22 16:46 Calculated Osmolality 269 mOsm/kg (285-295) L 12/09/22 16:46 Lactate 1.9 mmol/L (0.5-2.2) 12/09/22 20:12 Calcium 8.8 mg/dL (8.5-10.5) 12/09/22 16:46 Total Bilirubin 1.0 mg/dL (0.15-1.2) 12/09/22 16:46 AST 14 U/L (0-40) 12/09/22 16:46 ALT 9 U/L (0-41) 12/09/22 16:46 Alkaline Phosphatase 67 U/L (40-130) 12/09/22 16:46 Creatine Kinase 171 U/L (39-308) 12/09/22 16:46 Total Protein 7.2 g/dL (6.6-8.7) 12/09/22 16:46 Albumin 4.0 g/dL (3.5-5.2) 12/09/22 16:46 Globulin 3.2 g/dL (1.3-4.6) 12/09/22 16:46 Lipase 11 U/L (13-60) L 12/09/22 16:46 Urine Color Yellow (Yellow) 12/09/22 18:45 Urine Appearance Cloudy (CLEAR) A 12/09/22 18:45 Urine pH 6 (5-7) 12/09/22 18:45 Ur Specific [place] 1.010 (1.005-1.030) 12/09/22 18:45 Urine Protein Neg (Negative) 12/09/22 18:45 Urine Glucose (UA) Norm (Normal) 12/09/22 18:45 Urine Ketones Negative (Negative) 12/09/22 18:45 Urine Blood 3+ (Negative) H 12/09/22 18:45 Urine Nitrate Negative (Negative) 12/09/22 18:45 Urine Bilirubin Neg (Negative) 12/09/22 18:45 Urine Urobilinogen 1 mg/dL (Negative) H 12/09/22 18:45 Ur Leukocyte Esterase 2+ (Negative) H 12/09/22 18:45 Urine RBC 10-15 /hpf (0-2) H 12/09/22 18:45 Urine WBC >100 /hpf (0-5) H 12/09/22 18:45 Ur Squamous Epith Cells 0-4 /hpf (0-5) H 12/09/22 18:45 Amorphous Sediment 1+ /hpf 12/09/22 18:45 Urine Bacteria 2+ /hpf (NONE) H 12/09/22 18:45 Discharge Plan Discharge Patient Disposition: Home Clinical Impression: Acute cystitis Condition: Stable Prescriptions: New cephalexin 500 mg capsule 500 mg PO TID 7 Days Qty: 21 0RF No Action aspirin 81 mg tablet,delayed release (DR/EC) 81 mg PO QAM docusate sodium [Colace] 100 mg capsule 100 mg PO DAILY PRN (Reason: Constipation) (DME) blood-glucose meter [Blood Glucose Monitoring] Kit See Rx Instructions .ROUTE .MEDSUPPLY Qty: 1 0RF Rx Instructions: As directed (DME) Blood Glucose Test Strip See Rx Instructions .Route Qty: 50 2RF Rx Instructions: As directed (DME) lancets [Fingerstix Lancets] Misc See Rx Instructions .Route Qty: 100 0RF Rx Instructions: As directed Trelegy Ellipta 100-62.5-25 mcg blister with device 1 inh inhalation DAILY Qty: 60 3RF Ventolin HFA 90 mcg/actuation HFA aerosol inhaler 1 inh inhalation Q6H PRN (Reason: shortness of breath or wheezing) Qty: 8.5 3RF Altace 10 mg capsule 10 mg PO DAILY@0800 Qty: 90 3RF alendronate [Fosamax] 70 mg tablet 70 mg PO Q7D Qty: 13 1RF Rx Instructions: ON WEDNESDAY tamsulosin 0.4 mg capsule See Rx Instructions .ROUTE .COMPLEX Qty: 90 0RF Dose Instruction: Take 1 capsule by mouth once daily Rx Instructions: Take 1 capsule by mouth once daily levothyroxine 50 mcg tablet See Rx Instructions .ROUTE .COMPLEX Qty: 90 0RF Dose Instruction: TAKE 1 TABLET BY MOUTH ONCE DAILY IN THE MORNING Rx Instructions: TAKE 1 TABLET BY MOUTH ONCE DAILY IN THE MORNING simvastatin 40 mg tablet See Rx Instructions .ROUTE .COMPLEX Qty: 90 0RF Dose Instruction: TAKE 1 TABLET BY MOUTH ONCE DAILY AT 1999 Rx Instructions: TAKE 1 TABLET BY MOUTH ONCE DAILY AT 1999 clopidogrel 75 mg tablet See Rx Instructions .ROUTE .COMPLEX Qty: 90 0RF Dose Instruction: Take 1 tablet by mouth once daily Rx Instructions: Take 1 tablet by mouth once daily gabapentin 300 mg capsule See Rx Instructions .ROUTE .COMPLEX Qty: 90 0RF Dose Instruction: TAKE 1 CAPSULE BY MOUTH THREE TIMES DAILY AT 0800, 1400, 2000 Rx Instructions: TAKE 1 CAPSULE BY MOUTH THREE TIMES DAILY AT 0800, 1400, 2000 omeprazole 20 mg capsule,delayed release(DR/EC) See Rx Instructions .ROUTE .COMPLEX Qty: 60 0RF Dose Instruction: Take 1 capsule by mouth twice daily Rx Instructions: Take 1 capsule by mouth twice daily azithromycin [Zithromax Z-Vasu] 250 mg tablet See Rx Instructions PO .COMPLEX Qty: 6 0RF Rx Instructions: For 250 mg dose pack: take 500 mg today (day 1), then 250 mg for 4 days (days 2-5) PO glipizide 5 mg tablet See Rx Instructions .ROUTE .COMPLEX Qty: 50 0RF Dose Instruction: TAKE 1/2 (ONE-HALF) TABLET BY MOUTH ONCE DAILY IN THE MORNING Rx Instructions: TAKE 1/2 (ONE-HALF) TABLET BY MOUTH ONCE DAILY IN THE MORNING hydrocodone-acetaminophen 5-325 mg tablet 1 - 2 tab PO .Q4-6H Qty: 40 0RF Discharge Orders: Discharge ED (Routine); Ordered 12/09/22 Ordered By: Amanda Le Referrals: Dulce Maria Alonzo FNP [Primary Care Provider] - Discharge Diet: Advance as tolerated Discharge Activity: Resume usual activity Patient Instructions: Urinary Tract Infection in Men (ED) Coding Level of Care Code ED Academic Affairs Assistant for Chg Fwd Documented by User: Amanda Le MD 12/09/22 21:09 HPI - Weakness General: Chief complaint: Weakness Stated complaint: weakness Time Seen by Provider: 12/09/22 16:52 PFSH ED PFSH: Medical History Abnormal stress test Above knee amputation of left lower extremity Acute respiratory failure with hypoxia Acute respiratory failure with hypoxia Acute UTI CAD (coronary artery disease) Chest pain Clinical diagnosis of COVID-19 COPD (chronic obstructive pulmonary disease) COVID-19 Cystitis Diabetes Emphysema/COPD Encounter for postoperative care Encounter for postoperative care Encounter for postoperative care Epididymitis Fever Fracture of femoral neck, left GERD (gastroesophageal reflux disease) GERD (gastroesophageal reflux disease) History of GI bleed Hx pulmonary embolism Hyperlipemia, mixed Hypertension Hypothyroidism -Noted elevated TSH, normal free T4 -Continue levothyroxine Hypoxia Influenza A Influenza vaccine needed Inguinal nodule Lactic acidosis Metabolic acidosis On anticoagulant therapy Onychodystrophy Painful orthopaedic hardware Peripheral arterial disease Pneumonia due to COVID-19 virus Pressure ulcer of BKA stump, stage 2 Protracted bacterial bronchitis PVD (peripheral vascular disease) Pyuria Secondary bacterial pneumonia Sepsis Subcapital fracture of left hip Testicular swelling, left Type 2 diabetes mellitus with complication, without long-term current use of insulin -A1c at goal-6.2 -Accuchecks, ISS, hypoglycemia precautions -consistent carb diet as tolerated URI with cough and congestion Urinary retention UTI (urinary tract infection) Surgical History H/O cataract extraction RIGHT History of below-knee amputation of right lower extremity History 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 Family History Mother Diabetes Hypertension Other CAD (coronary artery disease) Myocardial infarction Social History Smoking and tobacco status: former smoker Second hand smoke exposure: No Smoking risk assessment/counseling performed?: No Alcohol intake: never Desire information about alcohol rehabilitation?: No Counseling given: No Desire information about substance/drug rehabilitation?: No Counseling given: No Adopted: No Lives independently: Yes Household members: spouse Marital status: Current occupational status: retired Current gender identity: Male Course Vital Signs: Vital signs: Vital Signs Temperature 99.0 F 12/09/22 16:50 Pulse Rate 84 12/09/22 21:00 Respiratory Rate 27 H 12/09/22 21:00 Blood Pressure 117/60 12/09/22 21:00 Pulse Oximetry 92 12/09/22 21:00 Oxygen Delivery Me thod 12/09/22 16:50 MDM - Weakness Medical Decision Making Patient presents here with weakness likely from a UTI I did offer him admission he states he feels improved and wants to go home I will treat him antibiotics at home he is to follow-up with his PCP and return if worsening he understands agrees to plan. Lab Data 12/09/22 16:46 12/09/22 16:46 Radiology Impressions Chest X-Ray 12/09/22 17:04 IMPRESSION: 1. Left lower lobe atelectasis 2. Metallic sternotomy wires are present 3. Otherwise No acute findings. Abdomen/Pelvis CT 12/09/22 19:17 IMPRESSION: 1. Fluid within the small bowel and colon without evidence of bowel wall thickening. This may reflect viral gastroenteritis in the appropriate clinical situation. 2. Findings suggesting a previous left femoral neck fracture repair with removal of the surgical hardware. 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 3. Cholelithiasis. 4. Small hiatal hernia. 5. Diffuse, moderate wall thickening of the bladder. In the correct clinical setting, this may suggest cystitis. Recommend correlation with laboratory findings. Alternatively, this may be secondary to chronic outlet obstruction. 6. Sigmoid diverticulosis. No evidence for diverticulitis. 7. The prostate gland is markedly enlarged. Nonspecific parenchymal calcifications in the prostate gland. Incidental/nonacute findings are listed in the report. 8. Incidental/nonacute findings are listed in the report. ADDENDUM: 12/09/222037 Please note the addendum to the original report: There is an inferior vena cava filter with the tip just below the level of the renal veins. Urgent results were discussed with AMANDA Duran on 12/09/2022 at 8:36 PM CDT. Laboratory Results WBC 13.6 10^3/uL (4.0-10.0) H 12/09/22 16:46 RBC 4.54 10^6/uL (4.1-5.3) 12/09/22 16:46 Hgb 13.3 g/dL (11.7-16.6) 12/09/22 16:46 Hct 39.6 % (42.0-52.0) L 12/09/22 16:46 MCV 87.2 fl (80-94) 12/09/22 16:46 MCH 29.3 pg (28.0-34.0) 12/09/22 16:46 MCHC 33.6 g/dL (30.0-36.0) 12/09/22 16:46 RDW 13.2 % (12.1-15.1) 12/09/22 16:46 Plt Count 261 10^3/cmm (130-400) 12/09/22 16:46 MPV 9.3 fL (7.4-10.4) 12/09/22 16:46 Neut % (Auto) 82.2 % 12/09/22 16:46 Lymph % (Auto) 7.1 % 12/09/22 16:46 [place] % (Auto) 9.5 % 12/09/22 16:46 Eos % (Auto) 0.3 % 12/09/22 16:46 Baso % (Auto) 0.4 % 12/09/22 16:46 Neut # (Auto) 11.18 10^3/uL (1.8-7.7) H 12/09/22 16:46 Lymph # (Auto) 1.0 10^3/uL (0.8-4.8) 12/09/22 16:46 [place] # (Auto) 1.3 10^3/uL (0.2-0.9) H 12/09/22 16:46 Eos # (Auto) 0.0 10^3/uL (0.0-0.8) 12/09/22 16:46 Baso # (Auto) 0.1 10^3/uL (0.0-0.1) 12/09/22 16:46 Nucleated RBC % (auto) 0 % 12/09/22 16:46 Nucleated RBCs # 0.0 /100WBC 12/09/22 16:46 Sodium 130 mmol/L (136-145) L 12/09/22 16:46 Potassium 3.9 mmol/L (3.5-5.1) 12/09/22 16:46 Chloride 94 mmol/L (98-107) L 12/09/22 16:46 Carbon Dioxide 24 mmol/L (22-29) 12/09/22 16:46 Anion Gap 15.9 (5-19) 12/09/22 16:46 BUN 12 mg/dL (8-23) 12/09/22 16:46 Creatinine 1.0 mg/dL (0.7-1.2) 12/09/22 16:46 GFR Calculation Not Reportable 12/09/22 16:46 Glucose 84 mg/dL (65-115) 12/09/22 16:46 Calculated Osmolality 269 mOsm/kg (285-295) L 12/09/22 16:46 Lactate 1.9 mmol/L (0.5-2.2) 12/09/22 20:12 Calcium 8.8 mg/dL (8.5-10.5) 12/09/22 16:46 Total Bilirubin 1.0 mg/dL (0.15-1.2) 12/09/22 16:46 AST 14 U/L (0-40) 12/09/22 16:46 ALT 9 U/L (0-41) 12/09/22 16:46 Alkaline Phosphatase 67 U/L (40-130) 12/09/22 16:46 Creatine Kinase 171 U/L (39-308) 12/09/22 16:46 Total Protein 7.2 g/dL (6.6-8.7) 12/09/22 16:46 Albumin 4.0 g/dL (3.5-5.2) 12/09/22 16:46 Globulin 3.2 g/dL (1.3-4.6) 12/09/22 16:46 Lipase 11 U/L (13-60) L 12/09/22 16:46 Urine Color Yellow (Yellow) 12/09/22 18:45 Urine Appearance Cloudy (CLEAR) A 12/09/22 18:45 Urine pH 6 (5-7) 12/09/22 18:45 Ur Specific [place] 1.010 (1.005-1.030) 12/09/22 18:45 Urine Protein Neg (Negative) 12/09/22 18:45 Urine Glucose (UA) Norm (Normal) 12/09/22 18:45 Urine Ketones Negative (Negative) 12/09/22 18:45 Urine Blood 3+ (Negative) H 12/09/22 18:45 Urine Nitrate Negative (Negative) 12/09/22 18:45 Urine Bilirubin Neg (Negative) 12/09/22 18:45 Urine Urobilinogen 1 mg/dL (Negative) H 12/09/22 18:45 Ur Leukocyte Esterase 2+ (Negative) H 12/09/22 18:45 Urine RBC 10-15 /hpf (0-2) H 12/09/22 18:45 Urine WBC >100 /hpf (0-5) H 12/09/22 18:45 Ur Squamous Epith Cells 0-4 /hpf (0-5) H 12/09/22 18:45 Amorphous Sediment 1+ /hpf 12/09/22 18:45 Urine Bacteria 2+ /hpf (NONE) H 12/09/22 18:45 Discharge Plan Discharge Patient Disposition: Home Clinical Impression: Acute cystitis Condition: Stable Prescriptions: New cephalexin 500 mg capsule 500 mg PO TID 7 Days Qty: 21 0RF No Action aspirin 81 mg tablet,delayed release (DR/EC) 81 mg PO QAM docusate sodium [Colace] 100 mg capsule 100 mg PO DAILY PRN (Reason: Constipation) (DME) blood-glucose meter [Blood Glucose Monitoring] Kit See Rx Instructions .ROUTE .MEDSUPPLY Qty: 1 0RF Rx Instructions: As directed (DME) Blood Glucose Test Strip See Rx Instructions .Route Qty: 50 2RF Rx Instructions: As directed (DME) lancets [Fingerstix Lancets] Misc See Rx Instructions .Route Qty: 100 0RF Rx Instructions: As directed Kenneth Torres 100-62.5-25 mcg blister with device 1 inh inhalation DAILY Qty: 60 3RF Ventolin HFA 90 mcg/actuation HFA aerosol inhaler 1 inh inhalation Q6H PRN (Reason: shortness of breath or wheezing) Qty: 8.5 3RF Altace 10 mg capsule 10 mg PO DAILY@0800 Qty: 90 3RF alendronate [Fosamax] 70 mg tablet 70 mg PO Q7D Qty: 13 1RF Rx Instructions: ON WEDNESDAY tamsulosin 0.4 mg capsule See Rx Instructions .ROUTE .COMPLEX Qty: 90 0RF Dose Instruction: Take 1 capsule by mouth once daily Rx Instructions: Take 1 capsule by mouth once daily levothyroxine 50 mcg tablet See Rx Instructions .ROUTE .COMPLEX Qty: 90 0RF Dose Instruction: TAKE 1 TABLET BY MOUTH ONCE DAILY IN THE MORNING Rx Instructions: TAKE 1 TABLET BY MOUTH ONCE DAILY IN THE MORNING simvastatin 40 mg tablet See Rx Instructions .ROUTE .COMPLEX Qty: 90 0RF Dose Instruction: TAKE 1 TABLET BY MOUTH ONCE DAILY AT 2000 Rx Instructions: TAKE 1 TABLET BY MOUTH ONCE DAILY AT 1999 clopidogrel 75 mg tablet See Rx Instructions .ROUTE .COMPLEX Qty: 90 0RF Dose Instruction: Take 1 tablet by mouth once daily Rx Instructions: Take 1 tablet by mouth once daily gabapentin 300 mg capsule See Rx Instructions .ROUTE .COMPLEX Qty: 90 0RF Dose Instruction: TAKE 1 CAPSULE BY MOUTH THREE TIMES DAILY AT 0800, 1400, 2000 Rx Instructions: TAKE 1 CAPSULE BY MOUTH THREE TIMES DAILY AT 0800, 1400, 2000 omeprazole 20 mg capsule,delayed release(DR/EC) See Rx Instructions .ROUTE .COMPLEX Qty: 60 0RF Dose Instruction: Take 1 capsule by mouth twice daily Rx Instructions: Take 1 capsule by mouth twice daily azithromycin [Zithromax Z-Vasu] 250 mg tablet See Rx Instructions PO .COMPLEX Qty: 6 0RF Rx Instructions: For 250 mg dose pack: take 500 mg today (day 1), then 250 mg for 4 days (days 2-5) PO glipizide 5 mg tablet See Rx Instructions .ROUTE .COMPLEX Qty: 50 0RF Dose Instruction: TAKE 1/2 (ONE-HALF) TABLET BY MOUTH ONCE DAILY IN THE MORNING Rx Instructions: TAKE 1/2 (ONE-HALF) TABLET BY MOUTH ONCE DAILY IN THE MORNING hydrocodone-acetaminophen 5-325 mg tablet 1 - 2 tab PO .Q4-6H Qty: 40 0RF Discharge Orders: Discharge ED (Routine); Ordered 12/09/22 Ordered By: Amanda Le Referrals: Dulce Maria Alonzo FNP [Primary Care Provider] - Discharge Diet: Advance as tolerated Discharge Activity: Resume usual activity Patient Instructions: Urinary Tract Infection in Men (ED) Coding Level of Care Code ED Academic Affairs Assistant for Oniel Ozuna
[2022-12-09 17:09] LABS: Basophils # 0.1 10^3/uL (0.0-0.1); Basophils % 0.4 %; Eosinophils % 0.3 %; Hematocrit 39.6 % (42.0-52.0); Hemoglobin 13.3 g/dL (11.7-16.6); Lymphocytes % 7.1 %; Mean Corpuscular HGB Conc 33.6 g/dL (30.0-36.0); Mean Corpuscular Hemoglobin 29.3 pg (28.0-34.0); Mean Corpuscular Volume 87.2 fl (80-94); Mean Platelet Volume 9.3 fL (7.4-10.4); Monocytes # 1.3 10^3/uL (0.2-0.9); Monocytes % 9.5 %; Neutrophils # 11.18 10^3/uL (1.8-7.7); Neutrophils % 82.2 %; Nucleated Red Blood Cells % 0 %; Platelet Count 261 10^3/cmm (130-400); Red Blood Count 4.54 10^6/uL (4.1-5.3); Red Cell Distribution Width 13.2 % (12.1-15.1); White Blood Count 13.6 10^3/uL (4.0-10.0)
[2022-12-09 17:33] LABS: Alanine Aminotransferase 9 U/L (0-41); Alkaline Phosphatase 67 U/L (40-130); Anion Gap 15.9 (5-19); Aspartate Amino Transferase 14 U/L (0-40); Blood Urea Nitrogen 12 mg/dL (8-23); Calcium 8.8 mg/dL (8.5-10.5); Carbon Dioxide 24 mmol/L (22-29); Chloride 94 mmol/L (98-107); Creatine Phosphokinase 171 U/L (39-308); Globulin 3.2 g/dL (1.3-4.6); Glucose 84 mg/dL (65-115); Lipase 11 U/L (13-60); Osmolality Calculated 269 mOsm/kg (285-295); Potassium 3.9 mmol/L (3.5-5.1); Sodium 130 mmol/L (136-145); Total Protein 7.2 g/dL (6.6-8.7)
[2022-12-09 17:37] VITALS: BP 117/63; PULSE 81; RESP 17; O2SAT 93
--- NOTE | 2022-12-09 18:53 | PC.NURSE ---
PT PLACED ON CONTINUOUS NIBP, SPO2, AND CM
[2022-12-09 19:11] LABS: Add Urine Microscopic? YES; Bilirubin Urine Neg (Negative); Blood Urine 3+ (Negative); Glucose Urine UA Norm (Normal); Ketones Urine Negative (Negative); Leukocyte Esterase Urine 2+ (Negative); Nitrate Urine Negative (Negative); Protein Urine Neg (Negative); Urine Appearance Cloudy (CLEAR); Urine Color Yellow (Yellow); Urobilinogen Urine 1 mg/dL (Negative); pH Urine 6 (5-7)
[2022-12-09 19:12] LABS: Add Urine Culture? Yes; Amorphous Sediment Urine 1+ /hpf; Bacteria Urine 2+ /hpf; Squamous Epithelial Cell Urine 0-4 /hpf (0-5); WBC Urine >100 /hpf (0-5)
--- NOTE | 2022-12-09 19:17 | CTR_ITS ---
PROCEDURE INFORMATION: Exam: CT Abdomen And Pelvis Without Contrast Exam date and time: 12/09/2022 7:57 PM Age: 82 years old Clinical indication: Other: General weakness/hematuria; Prior surgery; Surgery type: Cabg; Patient HX: General weakness with hematuria. TECHNIQUE: Imaging protocol: Computed tomography of the abdomen and pelvis without contrast. Sagittal and coronal reformatted images were created and reviewed. Radiation optimization: All CT scans at this facility use at least one of these dose optimization techniques: automated exposure control; mA and/or kV adjustment per patient size (includes targeted exams where dose is matched to clinical indication); or iterative reconstruction. REPORTING DATA: Count of CT and Cardiac NM exams in prior 12 months: This patient has received 3 known CTs and 0 known cardiac nuclear medicine studies in the 12 months prior to the current study. COMPARISON: CR XR hip LT 2-3V wo/w pel* [id number] 01/15/2022 10:00 AM RADIATION DOSE METRICS: Total DLP (mGy-cm): 501.23 FINDINGS: Lungs: Centrilobular emphysematous changes in the visualized lungs with bulla formation in the right lower lobe. There is linear scarring in the right and left lower lobes. There is linear scarring in the left lower lobe and left lingula. Pleural spaces: No pleural effusion. Heart: Visualized portions of the heart are mildly enlarged. Coronary arteries: Mild atherosclerotic calcification in the visualized coronary arteries. Liver: The liver is unremarkable. Gallbladder and bile ducts: Few stones in the gallbladder. No gallbladder wall thickening. No biliary ductal dilatation. Pancreas: The pancreas is unremarkable. No pancreatic ductal dilatation. Spleen: The spleen is unremarkable. Adrenal glands: Low-density nodules in the adrenal glands, consistent with adenomas. Right adrenal adenoma measures 1.2 x 1.5 cm (series 3, image 63). 2 left adrenal adenomas, the larger measures 1.5 x 1.2 cm (series 3, image 62). Kidneys and ureters: TheThe right and left kidneys are unremarkable. The right and left ureters are unremarkable. No hydroureteronephrosis. No calcified urolithiasis. Stomach and bowel: Small hiatal hernia. Numerous diverticula in the sigmoid colon. No evidence for diverticulitis. Fluid within the small bowel and colon without evidence of bowel wall thickening. Probable fecaliths in the cecum. Appendix: The appendix is visualized and is unremarkable. No findings to suggest acute appendicitis. Intraperitoneal space: No free intraperitoneal air. No ascites. No loculated fluid collections to suggest an abscess. Vasculature: Moderate atherosclerotic changes in the visualized arteries. No evidence for aortic aneurysm. Vascular stents in the right and left external iliac arteries. Findings suggesting bilateral femoral arterial bypass grafts. Lymph nodes: No lymphadenopathy. Urinary bladder: Diffuse, moderate wall thickening of the bladder. Reproductive: The prostate gland is markedly enlarged. Nonspecific parenchymal calcifications in the prostate gland. Bones/joints: Poststernotomy changes in the chest. Bones are diffusely osteopenic. Degenerative changes in the spine, sacroiliac joints, and hips. Findings suggesting a previous left femoral neck fracture repair with removal of the surgical hardware. 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 Mild spinal canal stenosis at L1-L2 through L5-S1. Multilevel foraminal stenosis of varying severity in the visualized spine. Soft tissues: No acute abnormality in the extra-abdominal soft tissues. CT/CT abdomen pelvis wo con [id number] IMPRESSION: 1. Fluid within the small bowel and colon without evidence of bowel wall thickening. This may reflect viral gastroenteritis in the appropriate clinical situation. 2. Findings suggesting a previous left femoral neck fracture repair with removal of the surgical hardware. 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 3. Cholelithiasis. 4. Small hiatal hernia. 5. Diffuse, moderate wall thickening of the bladder. In the correct clinical setting, this may suggest cystitis. Recommend correlation with laboratory findings. Alternatively, this may be secondary to chronic outlet obstruction. 6. Sigmoid diverticulosis. No evidence for diverticulitis. 7. The prostate gland is markedly enlarged. Nonspecific parenchymal calcifications in the prostate gland. Incidental/nonacute findings are listed in the report. 8. Incidental/nonacute findings are listed in the report.
[2022-12-09] MEDS: cefTRIAXone 1,000 MG in sodium chloride 0.9% (plus) 50 ML 100 MG IV (19:26)
[2022-12-09] MEDS: sodium chloride 0.9% 1,000 ML 999 ML IV (19:26)
[2022-12-09 20:30] VITALS: BP 125/62
[2022-12-09 20:33] LABS: Lactate (Lactic Acid level) 1.9 mmol/L (0.5-2.2)
[2022-12-09 21:00] VITALS: BP 117/60; PULSE 84; RESP 27; O2SAT 92
== END 2022-12-09 21:07 | disposition home or self-care (01) ==
PROVIDERS: Family Medicine; Emergency Provider Emergency Medicine; PCP Nurse Practitioner Family
DX: N30.00 Acute cystitis without hematuria (principal); Z79.82 Long term (current) use of aspirin; Z79.02 Long term (current) use of antithrombotics/antiplatelets; Z79.84 Long term (current) use of oral hypoglycemic drugs; K80.20 Calculus of gallbladder without cholecystitis without obstruction; K57.30 Diverticulosis of large intestine without perforation or abscess without bleeding; Z87.891 Personal history of nicotine dependence; Z89.511 Acquired absence of right leg below knee; Z95.1 Presence of aortocoronary bypass graft; I25.10 Atherosclerotic heart disease of native coronary artery without angina pectoris; J44.9 Chronic obstructive pulmonary disease, unspecified; E11.9 Type 2 diabetes mellitus without complications; E78.2 Mixed hyperlipidemia; I10 Essential (primary) hypertension; Z87.440 Personal history of urinary (tract) infections
CPT/HCPCS: 36415; 71045; 74176; 80053; 81001; 82550; 83605; 83690; 85025; 87077; 87086; 87186; 93005; 96365; 99285; J0696; J7030

== ENCOUNTER → 2022-12-21 11:26 | Outpatient (BNVA) | payer MEDICARE, MEDICAID, SELFPAY | PROVIDERS: PCP Nurse Practitioner Family; Visit Provider Nurse Practitioner Family | DX: N39.0 Urinary tract infection, site not specified (principal) | CPT/HCPCS: 87077; 87086; 87184 ==

== ENCOUNTER 2022-12-31 07:54 | Outpatient (CLI) | payer MEDICARE, MEDICAID, SELFPAY ==
[2022-12-31 08:17] VITALS: PULSE 54; RESP 18; O2SAT 94
[2022-12-31] MEDS: albuterol 2.5 mg/3 mL Neb INHALATION (08:17)
[2022-12-31 08:21] VITALS: PULSE 60
== END 2022-12-31 07:55 | disposition home or self-care (01) ==
PROVIDERS: PCP Nurse Practitioner Family; Visit Provider Internal Medicine Pulmonary Disease
DX: Z87.891 Personal history of nicotine dependence (principal); I26.99 Other pulmonary embolism without acute cor pulmonale
CPT/HCPCS: 94060; 94726; 94729; J7613

== ENCOUNTER → 2023-03-02 07:55 | Outpatient (BNVA) | payer MEDICARE, MEDICAID, SELFPAY | PROVIDERS: PCP Nurse Practitioner Family; Referring Provider Nurse Practitioner Family; Visit Provider Orthopaedic Surgery | DX: M25.559 Pain in unspecified hip (principal); M54.9 Dorsalgia, unspecified; W19.XXXA Unspecified fall, initial encounter | CPT/HCPCS: 36415; 72100; 73502; 80053; 81001; 85025; 87077; 87086; 87186; 99214 ==

== ENCOUNTER → 2023-03-04 12:36 | Outpatient (BNVA) | payer MEDICARE, MEDICAID, SELFPAY | PROVIDERS: PCP Nurse Practitioner Family; Visit Provider Family Medicine | DX: Z01.818 Encounter for other preprocedural examination (principal) | CPT/HCPCS: 83036 ==

== ENCOUNTER → 2023-03-18 11:10 | Outpatient (BNVA) | payer MEDICARE, MEDICAID, SELFPAY | PROVIDERS: PCP Nurse Practitioner Family; Visit Provider Nurse Practitioner Family | DX: N39.0 Urinary tract infection, site not specified (principal) | CPT/HCPCS: 81000 ==

== ENCOUNTER → 2023-03-22 13:33 | Outpatient (BNVA) | payer MEDICARE, MEDICAID, SELFPAY | PROVIDERS: PCP Nurse Practitioner Family; Visit Provider Internal Medicine Cardiovascular Disease | DX: I25.10 Atherosclerotic heart disease of native coronary artery without angina pectoris (principal); I73.9 Peripheral vascular disease, unspecified; Z87.891 Personal history of nicotine dependence; I10 Essential (primary) hypertension; Z95.1 Presence of aortocoronary bypass graft | CPT/HCPCS: 99214 ==

== ENCOUNTER 2023-03-24 09:48 | Day surgery (SDC) | payer MEDICARE, MEDICAID, SELFPAY ==
[2023-03-23 09:26] VITALS: BMI 21.2
[2023-03-24 10:10] VITALS: BP 134/82; PULSE 63; RESP 16; TEMP 36.8; O2SAT 95
[2023-03-24] MEDS: sodium chloride 0.9% 1,000 ML 30 ML IV (10:14)
[2023-03-24 10:17] LABS: Glucose Point of Care 100 mg/dL (70-110)
--- NOTE | 2023-03-24 10:19 | ANES.PREANE2 ---
Pre-Anesthetic Assessment Height/Weight: Height 1.83 m Weight 71.214 kg Temp Pulse Resp BP Pulse Ox O2 Del Method 98.3 F 63 16 134/82 95 Room Air 03/24/23 10:10 03/24/23 10:10 03/24/23 10:10 03/24/23 10:10 03/24/23 10:10 03/24/23 10:10 Preop Diagnosis: Left femoral neck nonunion Operation Date: 03/24/23 12:15 Proposed Procedures p left danisha arthroplasty:07047,S72.009A(Left) - Ryan Lawler, Familial anesthetic complications: None Was Beta Gabriella taken within 24 hours: N/A Was Clonidine taken within 24 hours: N/A Last intake: Intake Last Liquid Date 03/23/23 Last Liquid Time 18:30 Last Solid Date 03/23/23 Last Solid Time 12:00 Social No alcohol and No tobacco Exam alert, oriented x 3, clear to auscultation bilaterally and regular rate & rhythm Airway Mallampati: Class III Pulmonary Chronic Obstructive Pulmonary Disease CV/HEM Arrythmia, Coronary Artery Disease, Myocardial Infarction and Peripheral Vascular Disease GI Gastroesophageal Reflux Disease Metabolic Hyperlipidemia and Thyroid Disease Anesthetic Plan ASA status: 4 Anesthesia: Regional (specify below) Risk of > 500 ml blood loss (7ml/kg in children): No Medications/Allergies Home Medications Medication Instructions Recorded Confirmed Last Taken Type aspirin 81 mg tablet,delayed 81 mg PO QAM 09/08/19 03/23/23 03/20/23 History release ramipril 10 mg capsule (Altace) 10 mg PO DAILY@0800 #90 caps 03/23/22 03/24/23 03/23/23 Rx blood-glucose meter (Blood Glucose #1 ea 04/02/22 03/02/23 Unknown Rx Monitoring kit) lancets (Fingerstix Lancets) #100 ea 04/02/22 03/02/23 Unknown Rx albuterol sulfate 90 mcg/actuation 1 inh inhalation Q6H PRN shortness 12/03/22 03/23/23 03/21/23 Rx aerosol inhaler (Ventolin HFA) of breath or wheezing #8.5 grams alendronate 70 mg tablet See Rx Instructions .Route 12/14/22 03/24/23 03/21/23 Rx .COMPLEX #13 tabs lancets 30 gauge (OneTouch Delica #100 ea 04/21/23 06/20/23 Unknown Rx Plus Lancet) gabapentin 300 mg capsule See Rx Instructions .Route 01/12/23 03/24/23 03/24/23 Rx .COMPLEX #90 caps clopidogrel 75 mg tablet See Rx Instructions .Route 02/17/23 03/23/23 03/20/23 Rx .COMPLEX #90 tabs glipizide 5 mg tablet See Rx Instructions .Route .COMPLEX 03/23/23 03/23/23 03/21/23 History levothyroxine 50 mcg tablet 50 mcg PO DAILY 03/24/23 03/24/23 03/23/23 History omeprazole 20 mg capsule,delayed 20 mg PO DAILY 03/24/23 03/24/23 03/23/23 History release simvastatin 40 mg tablet 40 mg PO QPM 03/24/23 03/24/23 03/23/23 History tamsulosin 0.4 mg capsule 0.4 mg PO DAILY 03/24/23 03/24/23 03/24/23 History Allergies Allergy/AdvReac Type Severity Reaction Status Date / Time No Known Allergies Allergy Verified 03/23/23 09:19 Current Medications Generic Name Dose Route Start Last Admin Trade Name Freq PRN Reason Stop Dose Admin Sodium Chloride 1,000 mls @ 30 mls/hr 03/24/23 10:00 03/24/23 10:14 Sodium Chloride 0.9% IV 03/25/23 09:59 30 mls/hr .Q24H DINA Administration PFSH Anesthesia Medical History Abnormal stress test Above knee amputation of left lower extremity Acute respiratory failure with hypoxia Acute respiratory failure with hypoxia Acute UTI CAD (coronary artery disease) Chest pain Clinical diagnosis of COVID-19 COPD (chronic obstructive pulmonary disease) COVID-19 Cystitis Diabetes Emphysema/COPD Encounter for postoperative care Encounter for postoperative care Encounter for postoperative care Epididymitis Fever Fracture of femoral neck, left GERD (gastroesophageal reflux disease) GERD (gastroesophageal reflux disease) History of GI bleed Hx pulmonary embolism Hyperlipemia, mixed Hypertension Hypothyroidism -Noted elevated TSH, normal free T4 -Continue levothyroxine Hypoxia Influenza A Influenza vaccine needed Inguinal nodule Lactic acidosis Metabolic acidosis On anticoagulant therapy Onychodystrophy Painful orthopaedic hardware Peripheral arterial disease Pneumonia due to COVID-19 virus Pressure ulcer of BKA stump, stage 2 Protracted bacterial bronchitis PVD (peripheral vascular disease) Pyuria Secondary bacterial pneumonia Sepsis Subcapital fracture of left hip Testicular swelling, left Type 2 diabetes mellitus with complication, without long-term current use of insulin -A1c at goal-6.2 -Accuchecks, ISS, hypoglycemia precautions -consistent carb diet as tolerated URI with cough and congestion Urinary retention UTI (urinary tract infection) Surgical History H/O cataract extraction RIGHT History of below-knee amputation of right lower extremity History 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 Family History Mother Diabetes Hypertension Other CAD (coronary artery disease) Myocardial infarction Social History Smoking and tobacco status: former smoker Second hand smoke exposure: No Smoking risk assessment/counseling performed?: No Alcohol intake: never Desire information about alcohol rehabilitation?: No Counseling given: No Substance/Drug Use: never Desire information about substance/drug rehabilitation?: No Counseling given: No Adopted: No Lives independently: Yes Household members: spouse Marital status: Current occupational status: retired Current gender identity: Male Data Anesthesia Cardiac Studies: Echocardiogram 08/27/22 Echocardiogram Ultrasound 06/15/20 Sestamibi Stress Test (Cardiology) 12/16/20
--- NOTE | 2023-03-24 10:43 | PC.NURSE ---
pt arrived for surgery pt meds were covered in pre op according to information given by pt family pt had not taken clopidogrel since 03/20/23 in the anesthesia interview pt was asked about taking blood thinners he stated he did not take them but pt brought med list and the clopidogrel was on the list pt stated then that the medication was taken but then could not remember if it was taken or not in the interest of patient safety Dr. Lawler chose to cancel today and reschedule. pt and family were educated on stopping clopidogrel 7 days prior to rescheduled surgery day and being off of aspirin 2 days prior to surgery pt and family need reeducation on medications that are prescribed
== END 2023-03-24 10:49 | disposition home or self-care (01) ==
LOC: OR 09:49
PROVIDERS: PCP Nurse Practitioner Family; Visit Provider Orthopaedic Surgery
DX: Z53.8 Procedure and treatment not carried out for other reasons; S72.002K Fracture of unspecified part of neck of left femur, subsequent encounter for closed fracture with nonunion; E11.9 Type 2 diabetes mellitus without complications; Z79.84 Long term (current) use of oral hypoglycemic drugs; W19.XXXD Unspecified fall, subsequent encounter
CPT/HCPCS: 36416; 82962; J2704; J3490; J7030

== ENCOUNTER 2023-04-03 13:27 | Inpatient (IN) | payer MEDICARE, MEDICAID, SELFPAY ==
[2023-04-03] VITALS (9 sets, daily range): BP systolic 91–159; BP diastolic 50–80; PULSE 60–111; RESP 16–18; TEMP 36.5–37.8; O2SAT 92–97; BMI 20.9
--- NOTE | 2023-04-03 14:46 | XRR_ITS ---
PROCEDURE INFORMATION: Exam: XR Chest Exam date and time: 04/03/2023 3:05 PM Age: 82 years old Clinical indication: Cough and fever; Additional info: Fever, cough TECHNIQUE: Imaging protocol: Radiologic exam of the chest. Views: 1 view. COMPARISON: 1. CR XR chest 1V portable [id number] 12/09/2022 5:26 PM 2. CR XR chest 1V portable [id number] 08/31/2022 11:38 AM 3. CR XR chest 1V portable [id number] 08/27/2022 8:22 AM FINDINGS: Lungs: Mild left lower lung linear atelectasis and/or scarring. Minimal right basilar scarring versus atelectasis. No consolidation. Pleural spaces: Unremarkable. No pleural effusion. No pneumothorax. Heart/Mediastinum: Multiple mediastinal surgical clips. No cardiomegaly. Vasculature: Aortic arch calcification. Bones/joints: Multiple median sternotomy wires. Degenerative changes along the spine and both shoulders with uxybj-csapzea-bloe-left acromial humeral narrowing indicating rotator cuff tears. XR/XR chest 1V portable [id number] IMPRESSION: Mild vxvh-[id number]-right basilar scarring versus subsegmental atelectasis.
--- NOTE | 2023-04-03 14:46 | W.ED.NAVMDI ---
HPI - Nausea/Vomiting/Diarrhea General: Chief complaint: Nausea/Vomiting/Diarrhea Stated complaint: fever, abd pain, N/V Time Seen by Provider: 04/03/23 13:54 Limitations: altered mental status History of Present Illness: Mr. Espino is an 82-year-old gentleman with complex past medical history including CAD, COPD, diabetes, history of bilateral lower extremity amputation presenting the emergency department for generalized illness. Onset of symptoms yesterday with increased aches and pains specifically in his legs stumps. He has had fevers and chills as well as nausea and vomiting. He has intermittently been confused. He does require baseline oxygen however has had cough and increasing demand. Intensity symptoms moderate. Course has worsened. No other specific changes in health, exacerbating, or alleviating factors identified. Onset (ago): day(s) Pain consistency: constant Severity: moderate Associated symtoms: Reports cough, fatigue, fevers/chills, malaise and short of breath Review of Systems General: Reports: 10 or more systems reviewed and unremarkable except in HPI and below Const: Reports: fatigue and malaise PFSH ED PFSH: Medical History Abnormal stress test Above knee amputation of left lower extremity Acute respiratory failure with hypoxia Acute respiratory failure with hypoxia Acute UTI CAD (coronary artery disease) Chest pain Clinical diagnosis of COVID-19 COPD (chronic obstructive pulmonary disease) COVID-19 Cystitis Diabetes Emphysema/COPD Encounter for postoperative care Encounter for postoperative care Encounter for postoperative care Epididymitis Fever Fracture of femoral neck, left GERD (gastroesophageal reflux disease) GERD (gastroesophageal reflux disease) History of GI bleed Hx pulmonary embolism Hyperlipemia, mixed Hypertension Hypothyroidism -Noted elevated TSH, normal free T4 -Continue levothyroxine Hypoxia Influenza A Influenza vaccine needed Inguinal nodule Lactic acidosis Metabolic acidosis On anticoagulant therapy Onychodystrophy Painful orthopaedic hardware Peripheral arterial disease Pneumonia due to COVID-19 virus Pressure ulcer of BKA stump, stage 2 Protracted bacterial bronchitis PVD (peripheral vascular disease) Pyuria Secondary bacterial pneumonia Sepsis Subcapital fracture of left hip Testicular swelling, left Type 2 diabetes mellitus with complication, without long-term current use of insulin -A1c at goal-6.2 -Accuchecks, ISS, hypoglycemia precautions -consistent carb diet as tolerated URI with cough and congestion Urinary retention UTI (urinary tract infection) Surgical History H/O cataract extraction RIGHT History of below-knee amputation of right lower extremity History 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 Family History Mother Diabetes Hypertension Other CAD (coronary artery disease) Myocardial infarction Social History Smoking and tobacco status: former smoker Second hand smoke exposure: No Smoking risk assessment/counseling performed?: No Alcohol intake: never Desire information about alcohol rehabilitation?: No Counseling given: No Substance/Drug Use: never Desire information about substance/drug rehabilitation?: No Counseling given: No Adopted: No Lives independently: Yes Household members: spouse Marital status: Current occupational status: retired Current gender identity: Male Physical Exam Const: COMMON NORMALS: alert GENERAL APPEARANCE: cooperative and well developed HENMT: COMMON NORMALS: normocephalic and atraumatic HEAD & SCALP: normocephalic and atraumatic THROAT: posterior oropharynx normal Eye: COMMON NORMALS: conjunctivae normal CONJUNCTIVA: Yes conjunctivae normal SCLERA: sclerae normal Neck/C-Spine: COMMON NORMALS: supple GENERAL: Yes trachea midline Resp: COMMON NORMALS: normal respiratory effort EFFORT & INSPECTION: Yes able to speak in complete sentences Cardio: COMMON NORMALS: regular rate and regular rhythm RATE: regular rate RHYTHM: regular rhythm GI: COMMON NORMALS: Soft to palpation PALPATION: Yes Soft to palpation and No Tenderness to palpation present (GI) PERCUSSION: normal to percussion Extremity: NARRATIVE EXTREMITY EXAM: Prior left BKA, stump appears healthy without evidence of infection or acute abnormality. GENERAL: Yes normal exam except as noted and No edema Neuro: COMMON NORMALS: moves all extremities SENSORIUM/ORIENTATION: Yes alert and Yes Orientation impaired Course Vital Signs: Vital signs: Vital Signs Temperature 97.9 F 04/06/23 04:00 Pulse Rate 62 04/06/23 15:56 Respiratory Rate 18 04/06/23 15:56 Blood Pressure 116/58 04/06/23 15:56 Pulse Oximetry 95 04/06/23 15:56 Oxygen Delivery Me thod Nasal Cannula 04/06/23 11:42 Oxygen Flow Rate 4 04/06/23 11:42 MDM - Nausea/Vomiting/Diarrhea Medical Decision Making 82-year-old presenting with generalized illness. Appears mildly encephalopathic though nonfocal. No meningismus. Somewhat ill however nontoxic. EKG demonstrates sinus rhythm with PVCs, interventricular conduction delay with right axis deviation, no STEMI. Labs notable for leukocytosis and likely hemoconcentration kidney compared to prior. Metabolic panel with decreased bicarb and increased anion gap. Mid range 2-hour delta troponin. BNP is elevated. Procalcitonin and CRP elevated. Urinalysis with hematuria and concerning for UTI. Viral panel pending. Chest x-ray with similar appearance to prior, no definitive lobar consolidation or pneumothorax. Patient treated with IV fluids and antibiotics, he also was treated with antiemetic and analgesia. The results of ED evaluation were discussed with the patient and family including plan for admission due to requirement for level of care not available if discharged to prevent significant worsening/deterioration. Patient agreeable with plan. Discussed with hospitalist service who was agreeable to admit patient. Medical Records I reviewed the patient's medical records. Lab Data I reviewed the patient's lab results. 04/06/23 06:09 04/06/23 06:09 Radiology Impressions Chest X-Ray 04/03/23 14:46 IMPRESSION: Mild eznl-smgflpv-xwdf-right basilar scarring versus subsegmental atelectasis. Renal Ultrasound 04/05/23 17:37 IMPRESSION: 1. No hydronephrosis in either kidney. 2. Incomplete bladder emptying. 3. Bilateral ureteral jets visualized. 4. Enlarged prostate measures 5.2 x 3.7 x 6.4 CM. Recommend correlation PSA. Laboratory Results WBC 17.1 10^3/uL (4.0-10.0) H 04/03/23 14:20 RBC 4.99 10^6/uL (4.1-5.3) 04/03/23 14:20 Hgb 14.4 g/dL (11.7-16.6) 04/03/23 14:20 Hct 42.6 % (42.0-52.0) 04/03/23 14:20 MCV 85.4 fl (80-94) 04/03/23 14:20 MCH 28.9 pg (28.0-34.0) 04/03/23 14:20 MCHC 33.8 g/dL (30.0-36.0) 04/03/23 14:20 RDW 14.3 % (12.1-15.1) 04/03/23 14:20 Plt Count 237 10^3/cmm (130-400) 04/03/23 14:20 MPV 9.9 fL (7.4-10.4) 04/03/23 14:20 Neut % (Auto) 90.4 % 04/03/23 14:20 Lymph % (Auto) 2.7 % 04/03/23 14:20 [place] % (Auto) 6.0 % 04/03/23 14:20 Eos % (Auto) 0.0 % 04/03/23 14:20 Baso % (Auto) 0.4 % 04/03/23 14:20 Neut # (Auto) 15.51 10^3/uL (1.8-7.7) H 04/03/23 14:20 Lymph # (Auto) 0.5 10^3/uL (0.8-4.8) L 04/03/23 14:20 [place] # (Auto) 1.0 10^3/uL (0.2-0.9) H 04/03/23 14:20 Eos # (Auto) 0.0 10^3/uL (0.0-0.8) 04/03/23 14:20 Baso # (Auto) 0.1 10^3/uL (0.0-0.1) 04/03/23 14:20 Nucleated RBC % (auto) 0 % 04/03/23 14:20 Nucleated RBCs # 0.0 /100WBC 04/03/23 14:20 Sodium 134 mmol/L (136-145) L 04/03/23 14:20 Potassium 4.5 mmol/L (3.5-5.1) 04/03/23 14:20 Chloride 98 mmol/L (98-107) 04/03/23 14:20 Carbon Dioxide 18 mmol/L (22-29) L 04/03/23 14:20 Anion Gap 22.5 (5-19) H 04/03/23 14:20 BUN 15 mg/dL (8-23) 04/03/23 14:20 Creatinine 0.9 mg/dL (0.7-1.2) 04/03/23 14:20 GFR Calculation Not Reportable 04/03/23 14:20 Glucose 140 mg/dL (65-115) H 04/03/23 14:20 Calculated Osmolality 281 mOsm/kg (285-295) L 04/03/23 14:20 Lactic Acid 1.6 mmol/L (0.5-2.2) 04/03/23 14:20 Calcium 9.0 mg/dL (8.5-10.5) 04/03/23 14:20 Magnesium 1.8 mg/dL (1.7-2.3) 04/03/23 14:20 Total Bilirubin 0.9 mg/dL (0.15-1.2) 04/03/23 14:20 AST 21 U/L (0-40) 04/03/23 14:20 ALT 17 U/L (0-41) 04/03/23 14:20 Alkaline Phosphatase 87 U/L (40-130) 04/03/23 14:20 Troponin T Baseline 21 ng/L (0-15) H 04/03/23 14:20 Troponin T 120 Minute 25.61 ng/L (0-15) H 04/03/23 17:34 Delta Troponin T 4.61 ABS# (0-10) 04/03/23 17:34 C-Reactive Protein 192.8 mg/L (0.0-4.9) H 04/03/23 14:20 NT-Pro-B Natriuret Pep 2308 pg/mL (0-450) H 04/03/23 14:20 Total Protein 7.0 g/dL (6.6-8.7) 04/03/23 14:20 Albumin 4.4 g/dL (3.5-5.2) 04/03/23 14:20 Globulin 2.6 g/dL (1.3-4.6) 04/03/23 14:20 Procalcitonin 4.36 ng/mL (0-0.5) H 04/03/23 14:20 Urine Color Dark yellow (Yellow) 04/03/23 15:50 Urine Appearance Hazy (CLEAR) A 04/03/23 15:50 Urine pH 5 (5-7) 04/03/23 15:50 Ur Specific [place] 1.015 (1.005-1.030) 04/03/23 15:50 Urine Protein 2+ (Negative) H 04/03/23 15:50 Urine Glucose (UA) Norm (Normal) 04/03/23 15:50 Urine Ketones 1+ (Negative) H 04/03/23 15:50 Urine Blood 3+ (Negative) H 04/03/23 15:50 Urine Nitrate Positive (Negative) H 04/03/23 15:50 Urine Bilirubin Neg (Negative) 04/03/23 15:50 Urine Urobilinogen 1 mg/dL (Negative) H 04/03/23 15:50 Ur Leukocyte Esterase 2+ (Negative) H 04/03/23 15:50 Urine RBC >100 /hpf (0-2) H 04/03/23 15:50 Urine WBC 25-40 /hpf (0-5) H 04/03/23 15:50 Ur Squamous Epith Cells 0-4 /hpf (0-5) H 04/03/23 15:50 Amorphous Sediment Not Reportable 04/03/23 15:50 Urine Bacteria 2+ /hpf (NONE) H 04/03/23 15:50 Nasal Influ A H1 2009 PCR Not detected (NOT DETECT) 04/03/23 14:20 Adenovirus (PCR) Not detected (NOT DETECT) 04/03/23 14:20 C. pneumoniae DNA (PCR) Not detected (NOT DETECT) 04/03/23 14:20 Coronavirus 229E (PCR) Not detected (NOT DETECT) 04/03/23 14:20 Human Metapneumovir PCR Not detected (NOT DETECT) 04/03/23 14:20 Influenza A (H1) PCR Not detected (NOT DETECT) 04/03/23 14:20 Influenza A (H3) PCR Not detected (NOT DETECT) 04/03/23 14:20 Influenza Type A (PCR) Not detected (NOT DETECT) 04/03/23 14:20 Influenza Type B (PCR) Not detected (NOT DETECT) 04/03/23 14:20 M. pneumoniae (PCR) Not detected (NOT DETECT) 04/03/23 14:20 Parainfluenza 1 (PCR) Not detected (NOT DETECT) 04/03/23 14:20 Parainfluenza 2 (PCR) Not detected (NOT DETECT) 04/03/23 14:20 Parainfluenza 3 (PCR) Not detected (NOT DETECT) 04/03/23 14:20 Parainfluenza 4 (PCR) Not detected (NOT DETECT) 04/03/23 14:20 RSV Type A (PCR) Not detected (NOT DETECT) 04/03/23 14:20 RSV Type B (PCR) Not detected (NOT DETECT) 04/03/23 14:20 Entero/Rhino (PCR) Not detected (NOT DETECT) 04/03/23 14:20 SARS-CoV-2 (PCR) Not detected (NOT DETECT) 04/03/23 14:20 Discharge Plan Discharge Patient Disposition: Placed in Observation Admit Provider: Asa Dominguez Clinical Impression: Complicated UTI (urinary tract infection), Dehydration, Confusion, Nausea and vomiting Discharge Diet: Usual diet Discharge Activity: Resume usual activity Coding Level of Care Code ED Partnership Marketing Manager for Oniel Ozuna
--- NOTE | 2023-04-03 14:47 | ECG_ITS ---
[facility] Test Date: 2023-04-03 Pat Name: Mauro Espino Department: Room: Gender: Male Team Manager: : 1940 Requested By: Andrey Massey Order Number: [id number] Reardon MD: Yareli Pollard M.D. Measurements Intervals [place] Rate: 82 P: 85 [place]: 159 QRS: 130 QRSD: 137 T: 16 QT: 390 QTc: 458 Interpretive Statements SINUS RHYTHM WITH FREQUENT VENTRICULAR PREMATURE COMPLEXES RIGHT AXIS DEVIATION [QRS AXIS > 100] INTRAVENTRICULAR CONDUCTION DELAY [130+ ms QRS DURATION] Compared to ECG 12/09/2022 18:00:14 Right-axis deviation now present Intraventricular conduction delay now present Left-axis deviation no longer present Myocardial infarct finding no longer present Electronically Signed On 04-04-2023 11:24:34 CDT by Yareli Pollard M.D. [id number]
[2023-04-03] MEDS: sodium chloride 0.9% 500 ML IV (14:52)
[2023-04-03 15:50] LABS: Basophils # 0.1 10^3/uL (0.0-0.1); Basophils % 0.4 %; Hematocrit 42.6 % (42.0-52.0); Hemoglobin 14.4 g/dL (11.7-16.6); Lymphocytes # 0.5 10^3/uL (0.8-4.8); Lymphocytes % 2.7 %; Mean Corpuscular HGB Conc 33.8 g/dL (30.0-36.0); Mean Corpuscular Hemoglobin 28.9 pg (28.0-34.0); Mean Corpuscular Volume 85.4 fl (80-94); Mean Platelet Volume 9.9 fL (7.4-10.4); Neutrophils # 15.51 10^3/uL (1.8-7.7); Neutrophils % 90.4 %; Nucleated Red Blood Cells % 0 %; Platelet Count 237 10^3/cmm (130-400); Red Blood Count 4.99 10^6/uL (4.1-5.3); Red Cell Distribution Width 14.3 % (12.1-15.1); White Blood Count 17.1 10^3/uL (4.0-10.0)
[2023-04-03 16:06] LABS: Lactic Sepsis W/Reflex 1.6 mmol/L (0.5-2.2)
[2023-04-03] MEDS: morphine 4 mg/mL SDV 1 mL IVP (16:09)
[2023-04-03] MEDS: ondansetron 2 mg/ML SDV 2 mL 4 MG IVP (16:09)
[2023-04-03 16:11] LABS: Troponin(5th) Baseline 21 ng/L (0-15)
[2023-04-03 16:13] LABS: NT Pro B Type Natriuretic Pept 2308 pg/mL (0-450); Procalcitonin 4.36 ng/mL (0-0.5)
[2023-04-03 16:18] LABS: Add Urine Microscopic? YES; Bilirubin Urine Neg (Negative); Blood Urine 3+ (Negative); Glucose Urine UA Norm (Normal); Ketones Urine 1+ (Negative); Leukocyte Esterase Urine 2+ (Negative); Nitrate Urine Positive (Negative); Protein Urine 2+ (Negative); Specific Gravity, Urine 1.015 (1.005-1.030); Urine Appearance Hazy (CLEAR); Urine Color Dark Yellow (Yellow); Urobilinogen Urine 1 mg/dL (Negative); pH Urine 5 (5-7)
[2023-04-03 16:19] LABS: RBC Urine >100 /hpf (0-2); WBC Urine 25-40 /hpf (0-5)
[2023-04-03 16:20] LABS: Add Urine Culture? Yes; Bacteria Urine 2+ /hpf; Squamous Epithelial Cell Urine 0-4 /hpf (0-5)
[2023-04-03 16:25] LABS: Alanine Aminotransferase 17 U/L (0-41); Albumin Level 4.4 g/dL (3.5-5.2); Alkaline Phosphatase 87 U/L (40-130); Anion Gap 22.5 (5-19); Aspartate Amino Transferase 21 U/L (0-40); Blood Urea Nitrogen 15 mg/dL (8-23); C Reactive Protein 192.8 mg/L (0.0-4.9); Carbon Dioxide 18 mmol/L (22-29); Chloride 98 mmol/L (98-107); Creatinine Clr Calc Pharmacy 69.1507; Globulin 2.6 g/dL (1.3-4.6); Glucose 140 mg/dL (65-115); Magnesium 1.8 mg/dL (1.7-2.3); Osmolality Calculated 281 mOsm/kg (285-295); Potassium 4.5 mmol/L (3.5-5.1); Sodium 134 mmol/L (136-145); Total Bilirubin 0.9 mg/dL (0.15-1.2)
[2023-04-03] MEDS: levofloxacin-dextrose 5 % 750 MG/150 ML PREMIX 100 MG IV (16:40)
--- NOTE | 2023-04-03 17:13 | ECG_ITS ---
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 Measurements Intervals [place] Rate: 77 P: 70 [place]: 145 QRS: -78 QRSD: 129 T: 29 QT: 428 QTc: 487 Interpretive Statements SINUS RHYTHM WITH FREQUENT VENTRICULAR PREMATURE COMPLEXES INDETERMINATE AXIS POSSIBLE RIGHT VENTRICULAR CONDUCTION DELAY [RSR (QR) IN V1/V2] Compared to ECG 04/03/2023 14:55:56 Indeterminate axis now present Right-axis deviation no longer present Intraventricular conduction delay no longer present Electronically Signed On 04-04-2023 11:27:16 CDT by Yareli Pollard M.D. [id number]
[2023-04-03 17:35] LABS: Adenovirus Not Detected (NOT DETECT); Chlamydia Pneumoniae Not Detected (NOT DETECT); Coronavirus 229E,HKU1,NL63,OC4 Not Detected (NOT DETECT); Human Metapneumovirus Not Detected (NOT DETECT); Human Rhinovirus/Enterovirus Not Detected (NOT DETECT); Influenza A Not Detected (NOT DETECT); Influenza A H1 Not Detected (NOT DETECT); Influenza A H1-2009 Not Detected (NOT DETECT); Influenza A H3 Not Detected (NOT DETECT); Influenza B Not Detected (NOT DETECT); Mycoplasma Pneumoniae Not Detected (NOT DETECT); Parainfluenza Virus Type 1 Not Detected (NOT DETECT); Parainfluenza Virus Type 2 Not Detected (NOT DETECT); Parainfluenza Virus Type 3 Not Detected (NOT DETECT); Parainfluenza Virus Type 4 Not Detected (NOT DETECT); Respiratory Syncytial Virus A Not Detected (NOT DETECT); Respiratory Syncytial Virus B Not Detected (NOT DETECT); SARS-COV-2 Not Detected (NOT DETECT)
[2023-04-03 18:03] LABS: Troponin 5 2HR 25.61 ng/L (0-15)
[2023-04-03 18:23] LABS: Troponin 5 2HR Delta 4.61 ABS# (0-10)
--- NOTE | 2023-04-03 18:36 | P.HP_ITS ---
Providers/Chief Complaint Primary Care Provider: ANNE MARIE Beverly Chief Complaint: fever, abd pain, N/V History of Present Illness Mauro Espino is a 82 year old male with PMH of DM, CAD s/p CABG, s/p recent intervention to RCA with 2 RADHA 02/2021 ( patent POZO to LAD and SVG to OM however SVG to RCA was occluded. [place] prox RCA had severe CAD.S/P RADHA x 2 post orbital arthrectomy, PAD s/p bilateral lower extremity amputations. 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 His pertinent labs includes: WBC: 17.1 , H&H 14 and 42,PLT : 237 , serum sodium 134, serum potassium 4.5, BUN 15 serum creatinine 0.9, procalcitonin: 4.36 , lac tic acid 1.6. Patient received IV fluids as well as 1 dose of levofloxacin in the ER. ? Review of Systems General: Reports: 10 or more systems reviewed and unremarkable except in HPI and below Const: Reports: fever(s); Denies: chills, body aches, change in appetite or diaphoresis Card: Denies: palpitations, edema, swelling of feet/ankles, dyspnea on exerti on, orthopnea or leg pain with exertion Resp: Denies: dyspnea, productive cough, wheezing or pain on inspiration GI: Reports: abdominal pain, nausea, vomiting and diarrhea; Denies: constipation Musc: Denies: back pain, extremity pain or extremity swelling Neuro: Denies: headache(s) Medications/Allergies Home Medications Medication Instructions Recorded Confirmed Last Taken Type aspirin 81 mg tablet,delayed 81 mg PO QAM 09/08/19 04/03/23 04/03/23 History release blood-glucose meter (Blood Glucose #1 ea 04/02/22 04/03/23 Unknown Rx Monitoring kit) lancets (Fingerstix Lancets) #100 ea 04/02/22 04/03/23 Unknown Rx albuterol sulfate 90 mcg/actuation 1 inh inhalation Q6H PRN shortness 12/03/22 04/03/23 03/21/23 Rx aerosol inhaler (Ventolin HFA) of breath or wheezing #8.5 grams alendronate 70 mg tablet See Rx Instructions .Route 12/14/22 04/03/23 03/28/23 Rx .COMPLEX #13 tabs lancets 30 gauge (Bronwynuch Delica #100 ea 01/01/23 04/03/23 Unknown Rx Plus Lancet) glipizide 5 mg tablet 2.5 mg PO DAILY 03/23/23 04/03/23 04/03/23 History levothyroxine 50 mcg tablet 50 mcg PO DAILY 03/24/23 04/03/23 04/03/23 History omeprazole 20 mg capsule,delayed 20 mg PO BID 03/24/23 04/03/23 04/03/23 History release simvastatin 40 mg tablet 40 mg PO QPM 03/24/23 04/03/23 04/02/23 History tamsulosin 0.4 mg capsule 0.4 mg PO DAILY 03/24/23 04/03/23 04/03/23 History clopidogrel 75 mg tablet 75 mg PO DAILY 04/03/23 04/03/23 04/03/23 History fluticasone fur. 100 mcg-umeclid 1 inh inhalation DAILY 04/03/23 04/03/23 04/03/23 History 62.5 mcg-vilant 25 mcg inhalat.powder (Trelegy Ellipta) gabapentin 300 mg capsule 300 mg PO TID 04/03/23 04/03/23 04/03/23 History Allergies Allergy/AdvReac Type Severity Reaction Status Date / Time No Known Allergies Allergy Verified 03/31/23 10:19 PFSH Acute PFSH: Medical History Abnormal stress test Above knee amputation of left lower extremity Acute respiratory failure with hypoxia Acute respiratory failure with hypoxia Acute UTI CAD (coronary artery disease) Chest pain Clinical diagnosis of COVID-19 COPD (chronic obstructive pulmonary disease) COVID-19 Cystitis Diabetes Emphysema/COPD Encounter for postoperative care Encounter for postoperative care Encounter for postoperative care Epididymitis Fever Fracture of femoral neck, left GERD (gastroesophageal reflux disease) GERD (gastroesophageal reflux disease) History of GI bleed Hx pulmonary embolism Hyperlipemia, mixed Hypertension Hypothyroidism -Noted elevated TSH, normal free T4 -Continue levothyroxine Hypoxia Influenza A Influenza vaccine needed Inguinal nodule Lactic acidosis Metabolic acidosis On anticoagulant therapy Onychodystrophy Painful orthopaedic hardware Peripheral arterial disease Pneumonia due to COVID-19 virus Pressure ulcer of BKA stump, stage 2 Protracted bacterial bronchitis PVD (peripheral vascular disease) Pyuria Secondary bacterial pneumonia Sepsis Subcapital fracture of left hip Testicular swelling, left Type 2 diabetes mellitus with complication, without long-term current use of insulin -A1c at goal-6.2 -Accuchecks, ISS, hypoglycemia precautions -consistent carb diet as tolerated URI with cough and congestion Urinary retention UTI (urinary tract infection) Surgical History H/O cataract extraction RIGHT History of below-knee amputation of right lower extremity History 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 Family History Mother Diabetes Hypertension Other CAD (coronary artery disease) Myocardial infarction Social History Smoking and tobacco status: former smoker Second hand smoke exposure: No Smoking risk assessment/counseling performed?: No Alcohol intake: never Desire information about alcohol rehabilitation?: No Counseling given: No Substance/Drug Use: never Desire information about substance/drug rehabilitation?: No Counseling given: No Adopted: No Lives independently: Yes Household members: spouse Marital status: Current occupational status: retired Current gender identity: Male Vitals/I&O/Wt Last Vital Signs Temp 100.0 F H 04/03/23 13:35 Pulse 65 04/03/23 18:30 Resp 16 04/03/23 13:35 BP 93/50 04/03/23 18:30 Pulse Ox 93 04/03/23 18:30 O2 Del Method Nasal Cannula 04/03/23 16:45 O2 Flow Rate 4 04/03/23 16:45 04/03/23 04/03/23 04/03/23 06:59 14:59 22:59 Intake Total 650 / 650 Balance 650 / 650 Weight last 48 hrs Weight 70.307 kg Physical Exam HENMT: COMMON NORMALS: normocephalic and atraumatic HEAD & SCALP: normocephalic and atraumatic Resp: COMMON NORMALS: clear to auscultation bilaterally AUSCULTATION: clear to auscultation bilaterally Cardio: COMMON NORMALS: regular rate, regular rhythm, S1 normal heart sound present, S2 normal heart sound present, No gallops present (Cardio), No murmurs present (Cardio), No rub (Cardio) and Peripheral pulses 2+ throughout RATE: regular rate RHYTHM: regular rhythm HEART SOUNDS: S1 normal heart sound present and S2 normal heart sound present PERIPHERAL PULSES: Peripheral pulses 2+ throughout GI: COMMON NORMALS: Normal to inspection, nondistended, normoactive bowel sounds present, Soft to palpation, non-tender, No hepatosplenomegaly present and no masses AUSCULTATION: Yes normoactive bowel sounds PALPATION: Yes Soft to palpation and Yes No hepatosplenomegaly present RECTAL EXAM: Yes deferred Extremity: COMMON NORMALS: no clubbing, cyanosis or edema and no pedal edema Data 04/03/23 14:20 04/03/23 14:20 Micro: Microbiology 04/03/23 17:34 Blood Culture - Preliminary Blood SPECIMEN COLLECTED 04/03/23 17:34 Blood Culture - Preliminary Blood SPECIMEN COLLECTED A&P Assessment and plan (1) Complicated UTI (urinary tract infection): (2) Dehydration: (3) Confusion: (4) Nausea and vomiting: (5) Hypothyroidism: (6) Emphysema/COPD: Plan 82 year old male with PMH of DM, CAD s/p CABG, s/p recent intervention to RCA with 2 RADHA 02/2021 ( patent POZO to LAD and SVG to OM however SVG to RCA was occluded. [place] prox RCA had severe CAD.S/P RADHA x 2 post orbital arthrectomy, P AD s/p bilateral lower extremity amputations. 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 Assessment: UTI: Urinalysis is: Positive for nitrate leukocyte esterase 2+, urine RBC greater than 100, urine WBC 25-40, 2+ bacteria. Follow urine culture Has been started empirically on Zosyn Altered mental status secondary to UTI: Monitor mentation Currently appropriately covered with Zosyn Fever: Likely secondary to UTI Follow blood culture Urine culture Continue antibiotic as above Monitor for possible developing sepsis H/O HFrEF: Currently compensated Monitor and output charting Daily weight Dehydration: Continue gentle IV hydration Diabetes: SSI,FSG Hypothyroidism: Continue levothyroxine History of COPD: Continue DuoNebs budesonide CODE STATUS full code DVT prophylaxis on Lovenox Attestations Medical Necessity Statement*: Patient needs to be in hospital management of UTI. For IV antibiotic anticipated length of stay greater than 2 midnights. Coding Level of Care Code Acute Code for Chg Fwd Diagnoses Complicated UTI (urinary tract infection) N39.0 Dehydration E86.0 Confusion R41.0 Nausea and vomiting R11.2 Hypothyroidism E03.9 Emphysema/COPD J43.9
[2023-04-03] MEDS: gabapentin 300 mg Capsule PO (20:17)
[2023-04-03] MEDS: piperacillin-tazobactam 3.375 GM in sodium chloride 0.9% (plus) 50 ML IV (20:17)
[2023-04-03] MEDS: enoxaparin 40 mg/0.4 mL Syringe SUBCUT (20:17)
[2023-04-03] MEDS: sodium chloride 0.9% 1,000 ML 50 ML IV (20:18)
[2023-04-03 20:35] LABS: Glucose Point of Care 104 mg/dL (70-110)
--- NOTE | 2023-04-03 20:47 | ECG_ITS ---
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 Measurements Intervals [place] Rate: 79 P: 88 MO: 160 QRS: 191 QRSD: 126 T: 11 QT: 385 QTc: 443 Interpretive Statements SINUS RHYTHM POSSIBLE RIGHT VENTRICULAR HYPERTROPHY ANTEROSEPTAL MYOCARDIAL INFARCTION , OF INDETERMINATE AGE Compared to ECG 04/03/2023 17:13:26 Atrial abnormality now present Myocardial infarct finding now present Ventricular premature complex(es) no longer present Indeterminate axis no longer present Electronically Signed On 04-04-2023 11:27:08 CDT by Yareli Pollard M.D. [id number]
[2023-04-03 21:27] LABS: Troponin 5 6HR 25.18 ng/L (0-15); Troponin 5 6HR Delta 4.18 ng/L (0-12)
[2023-04-03] MEDS: ipratropium-albuterol 3 mL Neb INHALATION (21:44)
[2023-04-03] MEDS: budesonide 0.5 mg/2 mL Neb INHALATION (21:44)
[2023-04-04] VITALS (8 sets, daily range): BP systolic 101–124; BP diastolic 55–65; PULSE 47–80; RESP 16–18; TEMP 36.7–37.1; O2SAT 91–96
[2023-04-04] MEDS: piperacillin-tazobactam 3.375 GM in sodium chloride 0.9% (plus) 50 ML IV ×3 (03:27→18:44)
[2023-04-04 05:48] LABS: Basophils # 0.1 10^3/uL (0.0-0.1); Basophils % 0.5 %; Eosinophils # 0.1 10^3/uL (0.0-0.8); Eosinophils % 0.6 %; Hematocrit 35.2 % (42.0-52.0); Hemoglobin 11.7 g/dL (11.7-16.6); Lymphocytes # 0.9 10^3/uL (0.8-4.8); Lymphocytes % 9.6 %; Mean Corpuscular HGB Conc 33.2 g/dL (30.0-36.0); Mean Corpuscular Hemoglobin 28.7 pg (28.0-34.0); Mean Corpuscular Volume 86.5 fl (80-94); Mean Platelet Volume 9.1 fL (7.4-10.4); Monocytes % 10.1 %; Neutrophils # 7.59 10^3/uL (1.8-7.7); Neutrophils % 78.8 %; Nucleated Red Blood Cells % 0 %; Platelet Count 168 10^3/cmm (130-400); Red Blood Count 4.07 10^6/uL (4.1-5.3); Red Cell Distribution Width 14.3 % (12.1-15.1); White Blood Count 9.6 10^3/uL (4.0-10.0)
[2023-04-04 06:23] LABS: Alanine Aminotransferase 11 U/L (0-41); Albumin Level 3.7 g/dL (3.5-5.2); Alkaline Phosphatase 62 U/L (40-130); Aspartate Amino Transferase 19 U/L (0-40); Blood Urea Nitrogen 17 mg/dL (8-23); Carbon Dioxide 20 mmol/L (22-29); Chloride 100 mmol/L (98-107); Creatinine Clr Calc Pharmacy 69.1507; Globulin 1.9 g/dL (1.3-4.6); Glucose 85 mg/dL (65-115); Osmolality Calculated 277 mOsm/kg (285-295); Sodium 133 mmol/L (136-145); Total Bilirubin 0.7 mg/dL (0.15-1.2); Total Protein 5.6 g/dL (6.6-8.7)
[2023-04-04 06:24] LABS: Anion Gap 17.1 (5-19); Potassium 4.1 mmol/L (3.5-5.1)
[2023-04-04 06:27] LABS: Procalcitonin 4.44 ng/mL (0-0.5)
[2023-04-04] MEDS: aspirin 81 mg EC Tablet PO (06:30)
[2023-04-04 06:59] LABS: Glucose Point of Care 92 mg/dL (70-110)
[2023-04-04] MEDS: clopidogrel 75 mg Tablet PO (09:21)
[2023-04-04] MEDS: levothyroxine 50 mcg Tablet PO (09:22)
[2023-04-04] MEDS: tamsulosin 0.4 mg Capsule PO (09:22)
[2023-04-04] MEDS: pantoprazole DR 40 mg Tablet PO (09:22)
[2023-04-04] MEDS: gabapentin 300 mg Capsule PO ×3 (09:22→22:06)
[2023-04-04 12:02] LABS: Glucose Point of Care 118 mg/dL (70-110)
[2023-04-04] MEDS: ipratropium-albuterol 3 mL Neb INHALATION ×2 (12:38→19:59)
[2023-04-04] MEDS: sodium chloride 0.9% 1,000 ML 50 ML IV (15:23)
[2023-04-04 16:45] LABS: Glucose Point of Care 110 mg/dL (70-110)
--- NOTE | 2023-04-04 18:17 | P.PN_ITS ---
Subjective Subjective: Denied any significant complaint, currently holding good conversation, afebrile white cell count is going down. Medications: Medication Review Details: Generic Name Dose Route Start Last Admin Trade Name Jared STEPHEN Reason Stop Dose Admin Albuterol/Ipratrop ium 3 ml 04/03/23 20:00 04/04/23 17:18 Ipratropium-Albu terol 3 Ml Neb INHALATION Not Given QID.RESPIRATORY S CH Aspirin 81 mg 04/04/23 06:00 04/04/23 06:30 Aspirin 81 Mg Ec Tablet PO 81 mg QAM DINA Administration Budesonide 0.5 mg 04/03/23 20:00 04/04/23 10:00 Budesonide 0.5 M g/2 Ml Neb INHALATION Not Given BID.RESPIRATORY S CH Clopidogrel Bisulf ate 75 mg 04/04/23 09:00 04/04/23 09:21 Clopidogrel 75 M g Tablet PO 75 mg DAILY DINA Administration Enoxaparin Sodium 40 mg 04/03/23 18:30 04/03/23 20:17 Enoxaparin 40 Mg /0.4 Ml Syringe SUBCUT 40 mg Q24H DINA Administration Gabapentin 300 mg 04/03/23 21:00 04/04/23 15:23 Gabapentin 300 M g Capsule PO 300 mg TID DINA Administration Piperacillin Sod/T azobactam 50 mls @ 12.5 mls /hr 04/03/23 18:45 04/04/23 16:41 Sod 3.375 gm/ So dium Chloride IV Infused Q8H DINA Infusion Protocol Insulin Human Lisp ro 0 unit 04/03/23 21:00 04/04/23 11:53 Insulin Lispro 1 00 Unit/1 Ml SUBCUT Not Given WM&BEDTIME DINA Protocol Levothyroxine Sodi um 50 mcg 04/04/23 09:00 04/04/23 09:22 Levothyroxine 50 Mcg Tablet PO 50 mcg DAILY DINA Administration Pantoprazole Sodiu m 40 mg 04/04/23 09:00 04/04/23 09:[address] 40 Mg Tablet PO 40 mg DAILY DINA Administration Tamsulosin HCl 0.4 mg 04/04/23 09:00 04/04/23 09:22 Tamsulosin 0.4 M g Capsule PO 0.4 mg DAILY DINA Administration Vitals/I&O/Wt Last Vital Signs Temp 98.3 F 04/04/23 15:59 Pulse 65 04/04/23 15:59 Resp 16 04/04/23 15:59 BP 114/62 04/04/23 15:59 Pulse Ox 95 04/04/23 15:59 O2 Del Method Nasal Cannula 04/04/23 16:00 O2 Flow Rate 4 04/04/23 16:00 04/04/23 04/04/23 04/04/23 06:59 14:59 22:59 Intake Total 50 / 940 530 / 530 1004.167 / 1534.167 Output Total 450 / 450 700 / 700 350 / 1050 Balance -400 / 490 -170 / -170 654.167 / 484.167 Weight last 48 hrs Weight 70.307 kg Physical Exam 2 HENMT: COMMON NORMALS: normocephalic and atraumatic HEAD & SCALP: normocephalic and atraumatic Resp: COMMON NORMALS: clear to auscultation bilaterally AUSCULTATION: clear to auscultation bilaterally Cardio: COMMON NORMALS: regular rate, regular rhythm, S1 normal heart sound present, S2 normal heart sound present, No gallops present (Cardio), No murmurs present (Cardio), No rub (Cardio) and Peripheral pulses 2+ throughout RATE: regular rate RHYTHM: regular rhythm HEART SOUNDS: S1 normal heart sound p resent and S2 normal heart sound present PERIPHERAL PULSES: Peripheral pulses 2+ throughout GI: COMMON NORMALS: Normal to inspection, nondistended, normoactive bowel sounds present, Soft to palpation, non-tender, No hepatosplenomegaly present and no masses AUSCULTATION: Yes normoactive bowel sounds PALPATION: Yes Soft to palpation and Yes No hepatosplenomegaly present RECTAL EXAM: Yes deferred Extremity: COMMON NORMALS: no clubbing, cyanosis or edema and no pedal edema Data 04/04/23 05:35 04/04/23 05:35 Micro: Microbiology 04/03/23 17:34 Blood Culture - Preliminary Blood NEGATIVE TO DATE 04/03/23 17:34 Blood Culture - Preliminary Blood NEGATIVE TO DATE 04/03/23 15:50 Urine Culture - Preliminary Urine,Clean Catch Gram Negative Rods A&P Assessment and plan (1) Complicated UTI (urinary tract infection): (2) Dehydration: (3) Confusion: (4) Nausea and vomiting: (5) Hypothyroidism: (6) Emphysema/COPD: Plan 82 year old male with PMH of DM, CAD s/p CABG, s/p recent intervention to RCA with 2 RADHA 02/2021 ( patent POZO to LAD and SVG to OM however SVG to RCA was occluded. [place] prox RCA had severe CAD.S/P RADHA x 2 post orbital arthrectomy, PAD s/p bilateral lower extremity amputations. 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 Assessment: UTI: Urinalysis is: Positive for nitrate leukocyte esterase 2+, urine RBC greater than 100, urine WBC 25-40, 2+ bacteria. urine culture:GNR Has been started empirically on Zosyn Altered mental status secondary to UTI: Monitor mentation Currently appropriately covered with Zosyn Fever: Likely secondary to UTI Follow blood culture Urine culture Continue antibiotic as above Monitor for possible developing sepsis H/O HFrEF: Currently compensated Monitor and output charting Daily weight Dehydration: Was on gentle IV hydration Diabetes: SSI,FSG Hypothyroidism: Continue levothyroxine History of COPD: Continue DuoNebs budesonide CODE STATUS full code DVT prophylaxis on Lovenox Attestations Medical Necessity Statement*: Needs to be in hospital for IV antibiotics. Coding Level of Care Code Acute Code for Chg Fwd Diagnoses Complicated UTI (urinary tract infection) N39.0 Dehydration E86.0 Confusion R41.0 Nausea and vomiting R11.2 Hypothyroidism E03.9 Emphysema/COPD J43.9
[2023-04-04] MEDS: atorvastatin 40 mg Tablet PO (18:29)
[2023-04-04] MEDS: enoxaparin 40 mg/0.4 mL Syringe SUBCUT (18:30)
[2023-04-04] MEDS: budesonide 0.5 mg/2 mL Neb INHALATION (19:58)
[2023-04-04 20:57] LABS: Glucose Point of Care 118 mg/dL (70-110)
[2023-04-05] VITALS (12 sets, daily range): BP systolic 104–131; BP diastolic 58–84; PULSE 54–72; RESP 16–18; TEMP 36.2–37.1; O2SAT 94–98
[2023-04-05] MEDS: piperacillin-tazobactam 3.375 GM in sodium chloride 0.9% (plus) 50 ML IV ×3 (03:20→18:15)
[2023-04-05 05:42] LABS: Basophils % 0.5 %; Eosinophils # 0.2 10^3/uL (0.0-0.8); Eosinophils % 3.5 %; Hematocrit 36.5 % (42.0-52.0); Lymphocytes % 16.3 %; Mean Corpuscular HGB Conc 32.9 g/dL (30.0-36.0); Mean Corpuscular Hemoglobin 28.4 pg (28.0-34.0); Mean Corpuscular Volume 86.5 fl (80-94); Mean Platelet Volume 9.2 fL (7.4-10.4); Monocytes # 0.8 10^3/uL (0.2-0.9); Monocytes % 12.8 %; Neutrophils # 4.15 10^3/uL (1.8-7.7); Neutrophils % 66.6 %; Nucleated Red Blood Cells % 0 %; Platelet Count 162 10^3/cmm (130-400); Red Blood Count 4.22 10^6/uL (4.1-5.3); Red Cell Distribution Width 14.1 % (12.1-15.1); White Blood Count 6.2 10^3/uL (4.0-10.0)
[2023-04-05] MEDS: aspirin 81 mg EC Tablet PO (05:48)
[2023-04-05 06:01] LABS: Alanine Aminotransferase 9 U/L (0-41); Albumin Level 3.4 g/dL (3.5-5.2); Alkaline Phosphatase 56 U/L (40-130); Anion Gap 14.3 (5-19); Aspartate Amino Transferase 18 U/L (0-40); Blood Urea Nitrogen 13 mg/dL (8-23); Calcium 8.1 mg/dL (8.5-10.5); Carbon Dioxide 22 mmol/L (22-29); Chloride 100 mmol/L (98-107); Creatinine Clr Calc Pharmacy 69.1507; Globulin 2.1 g/dL (1.3-4.6); Glucose 102 mg/dL (65-115); Osmolality Calculated 274 mOsm/kg (285-295); Potassium 4.3 mmol/L (3.5-5.1); Sodium 132 mmol/L (136-145); Total Bilirubin 0.4 mg/dL (0.15-1.2); Total Protein 5.5 g/dL (6.6-8.7)
[2023-04-05 06:55] LABS: Glucose Point of Care 112 mg/dL (70-110)
[2023-04-05] MEDS: budesonide 0.5 mg/2 mL Neb INHALATION ×2 (08:10→19:55)
[2023-04-05] MEDS: ipratropium-albuterol 3 mL Neb INHALATION ×4 (08:10→19:55)
[2023-04-05] MEDS: pantoprazole DR 40 mg Tablet PO (09:59)
[2023-04-05] MEDS: tamsulosin 0.4 mg Capsule PO (09:59)
[2023-04-05] MEDS: clopidogrel 75 mg Tablet PO (09:59)
[2023-04-05] MEDS: gabapentin 300 mg Capsule PO ×3 (09:59→23:01)
[2023-04-05] MEDS: levothyroxine 50 mcg Tablet PO (10:00)
[2023-04-05 11:45] LABS: Glucose Point of Care 143 mg/dL (70-110)
[2023-04-05] MEDS: insulin lispro 100 unit/1 mL SUBCUT ×2 (11:56→23:01)
[2023-04-05 16:58] LABS: Glucose Point of Care 128 mg/dL (70-110)
--- NOTE | 2023-04-05 17:31 | PM.PN ---
Subjective Subjective: Urine culture revealing Pseudomonas. Patient denies any new complaints today. He is afebrile, hemodynamically stable. Medications: Reviewed: Yes Medication Review Details: Generic Name Dose Route Start Last Admin Trade Name Jared PRN Reason Stop Dose Admin Albuterol/Ipratrop ium 3 ml 04/03/23 20:00 04/04/23 17:18 Ipratropium-Albu terol 3 Ml Neb INHALATION Not Given QID.RESPIRATORY S CH Aspirin 81 mg 04/04/23 06:00 04/04/23 06:30 Aspirin 81 Mg Ec Tablet PO 81 mg QAM DINA Administration Budesonide 0.5 mg 04/03/23 20:00 04/04/23 10:00 Budesonide 0.5 M g/2 Ml Neb INHALATION Not Given BID.RESPIRATORY S CH Clopidogrel Bisulf ate 75 mg 04/04/23 09:00 04/04/23 09:21 Clopidogrel 75 M g Tablet PO 75 mg DAILY DINA Administration Enoxaparin Sodium 40 mg 04/03/23 18:30 04/03/23 20:17 Enoxaparin 40 Mg /0.4 Ml Syringe SUBCUT 40 mg Q24H DINA Administration Gabapentin 300 mg 04/03/23 21:00 04/04/23 15:23 Gabapentin 300 M g Capsule PO 300 mg TID DINA Administration Piperacillin Sod/T azobactam 50 mls @ 12.5 mls /hr 04/03/23 18:45 04/04/23 16:41 Sod 3.375 gm/ So dium Chloride IV Infused Q8H DINA Infusion Protocol Insulin Human Lisp ro 0 unit 04/03/23 21:00 04/04/23 11:53 Insulin Lispro 1 00 Unit/1 Ml SUBCUT Not Given WM&BEDTIME DINA Protocol Levothyroxine Sodi um 50 mcg 04/04/23 09:00 04/04/23 09:22 Levothyroxine 50 Mcg Tablet PO 50 mcg DAILY DINA Administration Pantoprazole Sodiu m 40 mg 04/04/23 09:00 04/04/23 09:[address] 40 Mg Tablet PO 40 mg DAILY DINA Administration Tamsulosin HCl 0.4 mg 04/04/23 09:00 04/04/23 09:22 Tamsulosin 0.4 M g Capsule PO 0.4 mg DAILY DINA Administration Vitals/I&O/Wt Last Vital Signs Temp 98.0 F 04/05/23 15:01 Pulse 57 L 04/05/23 15:57 Resp 18 04/05/23 15:57 BP 104/64 04/05/23 15:01 Pulse Ox 98 04/05/23 15:57 O2 Del Method Nasal Cannula 04/05/23 15:57 O2 Flow Rate 4 04/05/23 15:57 04/05/23 04/05/23 04/05/23 06:59 14:59 22:59 Intake Total 50 / 1976.667 290 / 290 50 / 340 Output Total 900 / 2350 400 / 400 Balance -850 / -373.333 -110 / -110 50 / -60 Physical Exam Narrative: General: No acute distress, AO x3 HEENT: PERRLA, pupils bilaterally equal and reactive, pallors not present Chest: Normal vesicular breath sounds, no added sounds, equal good air entry bilaterally CVS: S1-S2 regular, no murmurs, no tachycardia, no gallops, no rubs Abdomen: Soft, nontender, no organomegaly, bowel sounds present Neuro: No focal deficits, no facial deformity, AO x3, power 5/5 in all limbs Extremities: Bilateral lower extremity BKA, stump sites currently appear healthy Data 04/05/23 05:36 04/05/23 05:36 Micro: Microbiology 04/03/23 15:50 Urine Culture - Final Urine,Clean Catch Pseudomonas aeruginosa 04/03/23 17:34 Blood Culture - Preliminary Blood NEGATIVE TO DATE 04/03/23 17:34 Blood Culture - Preliminary Blood NEGATIVE TO DATE [facility] [address] [place] [address] DR. 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 RX --------- ------ * Amikacin <=16 S * Aztreonam <=4 S * Cefepime <=8 S * Ciprofloxacin 2 I * Gentamicin <=2 S * Imipenem <=1 S * Levofloxacin <=2 S * Piperacillin/Tazobactam <=16 S A&P Assessment and plan (1) Complicated UTI (urinary tract infection): (2) Dehydration: (3) Confusion: (4) Nausea and vomiting: (5) Hypothyroidism: (6) Emphysema/COPD: Plan 82 year old male with PMH of DM, CAD s/p CABG, PAD s/p bilateral lower extremity amputations, recurrent UTI admitted for complaints of nausea vomiting, fever at home, with intermittent confusion Assessment: # UTI: Urinalysis is: Positive for nitrate leukocyte esterase 2+, urine RBC greater than 100, urine WBC 25-40, 2+ bacteria. urine culture:GNR identified as Pseudomonas aeruginosa Currently on treatment with Zosyn which we will continue. At discharge with plan to switch to oral fluoroquinolones. Review of records shows that patient has a history of recurrent urinary tract infections in the past. His last urinary infection with Pseudomonas aeruginosa was in December 2022. Patient states this happened shortly after he had an indwelling Collins placed for urinary retention. He states that he was in a skilled nursing where he saw Dr. Laird who eventually removed his Collins catheter. I am unable to find any record of Dr. Laird's assessment in the chart here. Review of record also shows that patient has an enlarged prostate on CT scan from November 2022 and has had an episode of epididymitis 1 year ago. Given recurrent urinary tract infection in a male, which warrants investigation, patient would need to see urology as an outpatient to evaluate for chronic cystitis, need will need cystoscopic evaluation. 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 We will trial a prolonged course of fluoroquinolones to the tune of 6 weeks at discharge for presumed prostatitis and have him be followed up with urology. Last abdominal imaging imaging dates back to November 2022 at which time bilateral kidneys were unremarkable. There was no hydroureteronephrosis or urolithiasis. There was noted diffuse moderate wall thickening of the bladder suggestive of cystitis versus chronic bladder outlet obstruction. Prostate gland was markedly enlarged. We will check renal ultrasound to evaluate for any interim development of hydronephrosis. His current urine output is charted as 1700 cc over the last 24 hours. # Altered mental status secondary to UTI: Patient is currently awake alert and oriented, able to answer most questions coherently. He does have a slight lisp but otherwise no speech deficits are noted # H/O HFrEF: Currently compensated Monitor and output charting Daily weight Diabetes: SSI,FSG Hypothyroidism: Continue levothyroxine History of COPD: Continue DuoNebs budesonide CODE STATUS full code DVT prophylaxis on Lovenox Attestations Medical Necessity Statement*: ongoing need for iv antibiotics Coding Level of Care Code Acute Code for Chg Fwd Diagnoses Complicated UTI (urinary tract infection) N39.0 Dehydration E86.0 Confusion R41.0 Nausea and vomiting R11.2 Hypothyroidism E03.9 Emphysema/COPD J43.9
--- NOTE | 2023-04-05 17:37 | US_ITS ---
WS: [id number] ULTRASOUND RENAL TECHNIQUE: Ultrasound examination of both kidneys. CLINICAL INFORMATION: evaluate for hydronephrosis COMPARISON: Ultrasound 09/03 FINDINGS: RIGHT: Right kidney is normal in size and appearance. Echogenicity: Normal. Cortical thickness: 1.6 cm; Normal. Hydronephrosis: None. Perinephric fluid: None. Right kidney measures: 10.0 cm x 5.9 cm x 4.3 cm. LEFT: Left kidney is normal in size and appearance. Echogenicity: Normal. Cortical thickness: 1.9 cm; Normal. Hydronephrosis: None. Perinephric fluid: None. Left kidney measures: 11.4 cm x 5.3 cm x 5.9 cm. Normal visualized aorta. Prostate measures 5.2 x 3.7 x 6.4 CM. Recommend correlation PSA. Prevoid bladder volume 225 cc post void 138 cc US/US renal BI* [id number] IMPRESSION: 1. No hydronephrosis in either kidney. 2. Incomplete bladder emptying. 3. Bilateral ureteral jets visualized. 4. Enlarged prostate measures 5.2 x 3.7 x 6.4 CM. Recommend correlation PSA.
[2023-04-05] MEDS: enoxaparin 40 mg/0.4 mL Syringe SUBCUT (18:15)
[2023-04-05] MEDS: atorvastatin 40 mg Tablet PO (18:15)
[2023-04-05 21:01] LABS: Glucose Point of Care 190 mg/dL (70-110)
[2023-04-06] VITALS (7 sets, daily range): BP systolic 108–119; BP diastolic 58–66; PULSE 50–81; RESP 10–20; TEMP 36.6; O2SAT 95–98
[2023-04-06] MEDS: piperacillin-tazobactam 3.375 GM in sodium chloride 0.9% (plus) 50 ML IV ×2 (03:19→11:06)
[2023-04-06] MEDS: aspirin 81 mg EC Tablet PO (05:02)
[2023-04-06 06:47] LABS: Basophils # 0.1 10^3/uL (0.0-0.1); Basophils % 0.9 %; Eosinophils # 0.3 10^3/uL (0.0-0.8); Eosinophils % 4.5 %; Hematocrit 37.9 % (42.0-52.0); Hemoglobin 12.6 g/dL (11.7-16.6); Lymphocytes # 0.9 10^3/uL (0.8-4.8); Lymphocytes % 16.8 %; Mean Corpuscular HGB Conc 33.2 g/dL (30.0-36.0); Mean Corpuscular Hemoglobin 29.2 pg (28.0-34.0); Mean Corpuscular Volume 87.9 fl (80-94); Mean Platelet Volume 9.5 fL (7.4-10.4); Monocytes # 0.7 10^3/uL (0.2-0.9); Monocytes % 12.2 %; Neutrophils # 3.65 10^3/uL (1.8-7.7); Neutrophils % 65.2 %; Nucleated Red Blood Cells % 0 %; Platelet Count 216 10^3/cmm (130-400); Red Blood Count 4.31 10^6/uL (4.1-5.3); Red Cell Distribution Width 14.1 % (12.1-15.1); White Blood Count 5.6 10^3/uL (4.0-10.0)
[2023-04-06 06:51] LABS: Glucose Point of Care 102 mg/dL (70-110)
[2023-04-06 07:08] LABS: Alanine Aminotransferase 9 U/L (0-41); Albumin Level 3.7 g/dL (3.5-5.2); Alkaline Phosphatase 56 U/L (40-130); Anion Gap 15.3 (5-19); Aspartate Amino Transferase 14 U/L (0-40); Blood Urea Nitrogen 10 mg/dL (8-23); Calcium 8.5 mg/dL (8.5-10.5); Carbon Dioxide 25 mmol/L (22-29); Chloride 101 mmol/L (98-107); Creatinine Clr Calc Pharmacy 69.1507; Globulin 2.1 g/dL (1.3-4.6); Glucose 99 mg/dL (65-115); Osmolality Calculated 283 mOsm/kg (285-295); Potassium 4.3 mmol/L (3.5-5.1); Sodium 137 mmol/L (136-145); Total Bilirubin 0.3 mg/dL (0.15-1.2); Total Protein 5.8 g/dL (6.6-8.7)
[2023-04-06] MEDS: budesonide 0.5 mg/2 mL Neb INHALATION (08:32)
[2023-04-06] MEDS: ipratropium-albuterol 3 mL Neb INHALATION ×2 (08:32→11:18)
[2023-04-06] MEDS: gabapentin 300 mg Capsule PO ×2 (08:53→14:19)
[2023-04-06] MEDS: tamsulosin 0.4 mg Capsule PO (08:53)
[2023-04-06] MEDS: pantoprazole DR 40 mg Tablet PO (08:53)
[2023-04-06] MEDS: levothyroxine 50 mcg Tablet PO (08:53)
[2023-04-06] MEDS: clopidogrel 75 mg Tablet PO (08:53)
--- NOTE | 2023-04-06 08:59 | PC.SOCIAL ---
IMM update IMM updated with patient. Verbalized an understanding. Copy PG 2 provided. Initialled, dated, timed, and placed in chart.
[2023-04-06 12:16] LABS: Glucose Point of Care 195 mg/dL (70-110)
[2023-04-06] MEDS: insulin lispro 100 unit/1 mL SUBCUT (12:20)
--- NOTE | 2023-04-06 17:02 | PM.DCS ---
Discharge Providers Date of Admission: 04/03/23 19:23 Date of Discharge: April 06, 2023 Attending Provider at Admission: Asa Dominguez MD Attending Provider at Discharge: Janice Dean MD Primary Care Provider: ANNE MARIE Beverly Diagnoses at Discharge Discharge Diagnosis (1) Complicated UTI (urinary tract infection): Status: Acute (2) Dehydration: Status: Acute (3) Confusion: Status: Acute (4) Nausea and vomiting: Status: Acute (5) Hypothyroidism: Status: Acute (6) Emphysema/COPD: Status: Acute Reason for Visit Reason for Visit: fever, abd pain, N/V Hospital Course Hospital Course 82 year old male with PMH of DM, CAD s/p CABG,? PAD s/p bilateral lower extremity amputations, recurrent UTI admitted for complaints of nausea vomiting,? fever at home, with intermittent confusion Assessment: # UTI: Urinalysis is: Positive for nitrate leukocyte esterase 2+, urine RBC greater than 100, urine WBC 25-40, 2+ bacteria. urine culture:GNR identified as Pseudomonas aeruginosa received treatment with Zosyn while inpatient, transitioned to po Levaquin 750mg daily at discharge in keeping with susceptibility. Review of records shows that patient has a history of recurrent urinary tract infections in the past.? His last urinary infection with Pseudomonas aeruginosa was in December 2022.? Patient states this happened shortly after he had an indwelling Collins placed for urinary retention.? Review of record also shows that patient has an enlarged prostate on CT scan from November 2022 and has had an episode of epididymitis 1 year ago. Given recurrent urinary tract infection in a male, which warrants investigation, patient would need to see urology as an outpatient to evaluate for chronic cystitis, need will need cystoscopic evaluation. 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 He has been prescribed a prolonged course of fluoroquinolones to the tune of 6 weeks at discharge for presumed prostatitis, referral provided to urology as outpatient. Last abdominal imaging imaging dates back to November 2022 at which time bilateral kidneys were unremarkable.? There was no hydroureteronephrosis or urolithiasis. There was noted diffuse moderate wall thickening of the bladder suggestive of cystitis versus chronic bladder outlet obstruction. No hydronephrosis on current USG. Prostate gland markedly enlarged. # Altered mental status secondary to UTI: Patient is currently awake alert and oriented, able to answer all questions coherently.? He is being discharged today in stable to improved condition Physical Exam Narrative: General: No acute distress, AO x3 HEENT: PERRLA, pupils bilaterally equal and reactive, pallors not present Chest: Normal vesicular breath sounds, no added sounds, equal good air entry bilaterally CVS: S1-S2 regular, no murmurs, no tachycardia, no gallops, no rubs Abdomen: Soft, nontender, no organomegaly, bowel sounds present Neuro: No focal deficits, no facial deformity, AO x3, power 5/5 in all limbs Extremities: B/L AKA Discharge Data Studies Completed and Pending Completed Studies During Hospitalization Category Date Time Status XR chest 1V portable [id number] Stat Exams 04/03/23 14:46 Completed US renal BI* [id number] Routine Ultrasound 04/05/23 17:37 Completed Pending at discharge Category Date Time Status Blood Culture Stat Lab 04/03/23 17:34 Results Radiology Impressions Chest X-Ray 04/03/23 14:46 IMPRESSION: Mild yhqh-[id number]-bwba-right basilar scarring versus subsegmental atelectasis. Renal Ultrasound 04/05/23 17:37 IMPRESSION: 1. No hydronephrosis in either kidney. 2. Incomplete bladder emptying. 3. Bilateral ureteral jets visualized. 4. Enlarged prostate measures 5.2 x 3.7 x 6.4 CM. Recommend correlation PSA. Laboratory Results WBC 5.6 10^3/uL (4.0-10.0) 04/06/23 06:09 RBC 4.31 10^6/uL (4.1-5.3) 04/06/23 06:09 Hgb 12.6 g/dL (11.7-16.6) 04/06/23 06:09 Hct 37.9 % (42.0-52.0) L 04/06/23 06:09 MCV 87.9 fl (80-94) 04/06/23 06:09 MCH 29.2 pg (28.0-34.0) 04/06/23 06:09 MCHC 33.2 g/dL (30.0-36.0) 04/06/23 06:09 RDW 14.1 % (12.1-15.1) 04/06/23 06:09 Plt Count 216 10^3/cmm (130-400) D 04/06/23 06:09 MPV 9.5 fL (7.4-10.4) 04/06/23 06:09 Neut % (Auto) 65.2 % 04/06/23 06:09 Lymph % (Auto) 16.8 % 04/06/23 06:09 [place] % (Auto) 12.2 % 04/06/23 06:09 Eos % (Auto) 4.5 % 04/06/23 06:09 Baso % (Auto) 0.9 % 04/06/23 06:09 Neut # (Auto) 3.65 10^3/uL (1.8-7.7) 04/06/23 06:09 Lymph # (Auto) 0.9 10^3/uL (0.8-4.8) 04/06/23 06:09 [place] # (Auto) 0.7 10^3/uL (0.2-0.9) 04/06/23 06:09 Eos # (Auto) 0.3 10^3/uL (0.0-0.8) 04/06/23 06:09 Baso # (Auto) 0.1 10^3/uL (0.0-0.1) 04/06/23 06:09 Nucleated RBC % (auto) 0 % 04/06/23 06:09 Nucleated RBCs # 0.0 /100WBC 04/06/23 06:09 Sodium 137 mmol/L (136-145) 04/06/23 06:09 Potassium 4.3 mmol/L (3.5-5.1) 04/06/23 06:09 Chloride 101 mmol/L (98-107) 04/06/23 06:09 Carbon Dioxide 25 mmol/L (22-29) 04/06/23 06:09 Anion Gap 15.3 (5-19) 04/06/23 06:09 BUN 10 mg/dL (8-23) 04/06/23 06:09 Creatinine 0.9 mg/dL (0.7-1.2) 04/06/23 06:09 GFR Calculation Not Reportable 04/06/23 06:09 Glucose 99 mg/dL (65-115) 04/06/23 06:09 POC Glucose 195 mg/dL (70-110) H 04/06/23 11:50 Calculated Osmolality 283 mOsm/kg (285-295) L 04/06/23 06:09 Lactic Acid 1.6 mmol/L (0.5-2.2) 04/03/23 14:20 Calcium 8.5 mg/dL (8.5-10.5) 04/06/23 06:09 Magnesium 1.8 mg/dL (1.7-2.3) 04/03/23 14:20 Total Bilirubin 0.3 mg/dL (0.15-1.2) 04/06/23 06:09 AST 14 U/L (0-40) 04/06/23 06:09 ALT 9 U/L (0-41) 04/06/23 06:09 Alkaline Phosphatase 56 U/L (40-130) 04/06/23 06:09 Troponin T Baseline 21 ng/L (0-15) H 04/03/23 14:20 Troponin T 120 Minute 25.61 ng/L (0-15) H 04/03/23 17:34 Delta Troponin T 4.61 ABS# (0-10) 04/03/23 17:34 Troponin T Hi Sens 6Hr 25.18 ng/L (0-15) H 04/03/23 20:44 Troponin T Hi Sens 6Hr Delta 4.18 ng/L (0-12) 04/03/23 20:44 C-Reactive Protein 192.8 mg/L (0.0-4.9) H 04/03/23 14:20 NT-Pro-B Natriuret Pep 2308 pg/mL (0-450) H 04/03/23 14:20 Total Protein 5.8 g/dL (6.6-8.7) L 04/06/23 06:09 Albumin 3.7 g/dL (3.5-5.2) 04/06/23 06:09 Globulin 2.1 g/dL (1.3-4.6) 04/06/23 06:09 Procalcitonin 4.44 ng/mL (0-0.5) H 04/04/23 05:35 Urine Color Dark yellow (Yellow) 04/03/23 15:50 Urine Appearance Hazy (CLEAR) A 04/03/23 15:50 Urine pH 5 (5-7) 04/03/23 15:50 Ur Specific [place] 1.015 (1.005-1.030) 04/03/23 15:50 Urine Protein 2+ (Negative) H 04/03/23 15:50 Urine Glucose (UA) Norm (Normal) 04/03/23 15:50 Urine Ketones 1+ (Negative) H 04/03/23 15:50 Urine Blood 3+ (Negative) H 04/03/23 15:50 Urine Nitrate Positive (Negative) H 04/03/23 15:50 Urine Bilirubin Neg (Negative) 04/03/23 15:50 Urine Urobilinogen 1 mg/dL (Negative) H 04/03/23 15:50 Ur Leukocyte Esterase 2+ (Negative) H 04/03/23 15:50 Urine RBC >100 /hpf (0-2) H 04/03/23 15:50 Urine WBC 25-40 /hpf (0-5) H 04/03/23 15:50 Ur Squamous Epith Cells 0-4 /hpf (0-5) H 04/03/23 15:50 Amorphous Sediment Not Reportable 04/03/23 15:50 Urine Bacteria 2+ /hpf (NONE) H 04/03/23 15:50 Nasal Influ A H1 2009 PCR Not detected (NOT DETECT) 04/03/23 14:20 Adenovirus (PCR) Not detected (NOT DETECT) 04/03/23 14:20 C. pneumoniae DNA (PCR) Not detected (NOT DETECT) 04/03/23 14:20 Coronavirus 229E (PCR) Not detected (NOT DETECT) 04/03/23 14:20 Human Metapneumovir PCR Not detected (NOT DETECT) 04/03/23 14:20 Influenza A (H1) PCR Not detected (NOT DETECT) 04/03/23 14:20 Influenza A (H3) PCR Not detected (NOT DETECT) 04/03/23 14:20 Influenza Type A (PCR) Not detected (NOT DETECT) 04/03/23 14:20 Influenza Type B (PCR) Not detected (NOT DETECT) 04/03/23 14:20 M. pneumoniae (PCR) Not detected (NOT DETECT) 04/03/23 14:20 Parainfluenza 1 (PCR) Not detected (NOT DETECT) 04/03/23 14:20 Parainfluenza 2 (PCR) Not detected (NOT DETECT) 04/03/23 14:20 Parainfluenza 3 (PCR) Not detected (NOT DETECT) 04/03/23 14:20 Parainfluenza 4 (PCR) Not detected (NOT DETECT) 04/03/23 14:20 RSV Type A (PCR) Not detected (NOT DETECT) 04/03/23 14:20 RSV Type B (PCR) Not detected (NOT DETECT) 04/03/23 14:20 Entero/Rhino (PCR) Not detected (NOT DETECT) 04/03/23 14:20 SARS-CoV-2 (PCR) Not detected (NOT DETECT) 04/03/23 14:20 Vitals Last Vital Signs Temp 97.9 F 04/06/23 04:00 Pulse 62 04/06/23 15:56 Resp 18 04/06/23 15:56 BP 116/58 04/06/23 15:56 Pulse Ox 95 04/06/23 15:56 O2 Del Method Nasal Cannula 04/06/23 11:42 O2 Flow Rate 4 04/06/23 11:42 Discharge Plan Discharge Patient Disposition: Home Condition: Stable Prescriptions: New levofloxacin 750 mg tablet 750 mg PO DAILY 42 Days Qty: 42 0RF Continued aspirin 81 mg tablet,delayed release (DR/EC) 81 mg PO QAM (DME) blood-glucose meter [Blood Glucose Monitoring] Kit See Rx Instructions .ROUTE .MEDSUPPLY Qty: 1 0RF Rx Instructions: As directed (DME) lancets [Fingerstix Lancets] Misc See Rx Instructions .Route Qty: 100 0RF Rx Instructions: As directed Ventolin HFA 90 mcg/actuation HFA aerosol inhaler 1 inh inhalation Q6H PRN (Reason: shortness of breath or wheezing) Qty: 8.5 3RF alendronate 70 mg tablet See Rx Instructions .ROUTE .COMPLEX Qty: 13 0RF Dose Instruction: TAKE 1 TABLET BY MOUTH EVERY SEVEN DAYS ON WEDNESDAY Rx Instructions: TAKE 1 TABLET BY MOUTH EVERY SEVEN DAYS ON WEDNESDAY (DME) lancets [OneTouch Delica Plus Lancet] 30 gauge misc See Rx Instructions .ROUTE .COMPLEX Qty: 100 0RF Dose Instruction: USE DIRECTED Rx Instructions: USE DIRECTED glipizide 5 mg tablet 2.5 mg PO DAILY tamsulosin 0.4 mg capsule 0.4 mg PO DAILY simvastatin 40 mg tablet 40 mg PO QPM levothyroxine 50 mcg tablet 50 mcg PO DAILY omeprazole 20 mg capsule,delayed release(DR/EC) 20 mg PO BID clopidogrel 75 mg tablet 75 mg PO DAILY gabapentin 300 mg capsule 300 mg PO TID Trelegy Ellipta 100-62.5-25 mcg blister with device 1 inh INHALATION DAILY Discharge Orders: Discharge Order (Routine); Ordered 04/06/23 Ordered By: Janice Dean Referrals: Ghulam Patricio [Referring] - 2 weeks (chronic prostatitis, recurrent cytsitis, bladder outlet obstruction, BPH, recurrent hospital admissions for Pseudomonas UTI FAXED REFERRAL TO DR PATRICIO, his office should call you with an appointment.) Dulce Maria Alonzo FNP [Primary Care Provider] - 04/13/23 9:30 am Discharge Diet: Usual diet Discharge Activity: Resume usual activity Patient Instructions: COPD, Levofloxacin (By mouth), Urinary Tract Infection in Men (ED), COPD Stoplight, Opioid Safety Discharge Attestations Time Spent in Discharge Care*: greater than 30 min Status at Discharge: Cognitive status at discharge: cognitively intact, Behavioral status at discharge: cooperative and independent in ADL's, Quality Metrics Clinical Quality Measures [ No reported AMI, CVA or VTE this stay] Coding Level of Care Code Acute Code for Chg Fwd Diagnoses Complicated UTI (urinary tract infection) N39.0 Dehydration E86.0 Confusion R41.0 Nausea and vomiting R11.2 Hypothyroidism E03.9 Emphysema/COPD J43.9
== END 2023-04-06 15:55 | disposition home or self-care (01) | DRG 690 ==
LOC: ER 17:11 → MEDSURG 19:24
PROVIDERS: Admitting Provider Internal Medicine; Emergency Provider Emergency Medicine; PCP Nurse Practitioner Family; Visit Provider Student in an Organized Health Care Education/Training Program
DX: N39.0 Urinary tract infection, site not specified (principal); I50.32 Chronic diastolic (congestive) heart failure; B96.5 Pseudomonas (aeruginosa) (mallei) (pseudomallei) as the cause of diseases classified elsewhere; E11.51 Type 2 diabetes mellitus with diabetic peripheral angiopathy without gangrene; I25.10 Atherosclerotic heart disease of native coronary artery without angina pectoris; Z95.1 Presence of aortocoronary bypass graft; Z95.5 Presence of coronary angioplasty implant and graft; Z89.612 Acquired absence of left leg above knee; Z89.511 Acquired absence of right leg below knee; Z87.440 Personal history of urinary (tract) infections; N40.1 Benign prostatic hyperplasia with lower urinary tract symptoms; R33.8 Other retention of urine; N41.1 Chronic prostatitis; Z79.82 Long term (current) use of aspirin; Z79.84 Long term (current) use of oral hypoglycemic drugs; Z79.02 Long term (current) use of antithrombotics/antiplatelets; E03.9 Hypothyroidism, unspecified; I11.0 Hypertensive heart disease with heart failure; Z86.16 Personal history of COVID-19; J43.9 Emphysema, unspecified; K21.9 Gastro-esophageal reflux disease without esophagitis; E86.0 Dehydration; Z87.891 Personal history of nicotine dependence; Z87.01 Personal history of pneumonia (recurrent); E78.2 Mixed hyperlipidemia; Z86.711 Personal history of pulmonary embolism
CPT/HCPCS: 36415; 36416; 71045; 76770; 80053; 81001; 82962; 83605; 83735; 83880; 84145; 84484; 85025; 86140; 87040; 87077; 87086; 87186; 87486; 87581; 87633; 93005; 94640; 96365; 96372; 96375; 99285; J1650; J1815; J1956; J2270; J2405; J2543; J7030; J7040; J7626

== ENCOUNTER → 2023-04-28 10:47 | Outpatient (BNVA) | payer MEDICARE, MEDICAID, SELFPAY | PROVIDERS: PCP Nurse Practitioner Family; Visit Provider Nurse Practitioner Family | DX: N39.0 Urinary tract infection, site not specified (principal) | CPT/HCPCS: 81000 ==

== ENCOUNTER 2023-05-21 18:18 | Emergency (ER) | payer MEDICARE, MEDICAID, SELFPAY ==
[2023-05-21 18:22] VITALS: BP 145/77; PULSE 100; RESP 24; TEMP 36.7; O2SAT 91; BMI 21.1
[2023-05-21 19:35] LABS: Basophils # 0.1 10^3/uL (0.0-0.1); Basophils % 0.4 %; Eosinophils # 0.1 10^3/uL (0.0-0.8); Eosinophils % 0.8 %; Hematocrit 40.8 % (37-53); Lymphocytes # 0.8 10^3/uL (0.8-4.8); Lymphocytes % 6.7 %; Mean Corpuscular HGB Conc 34.6 g/dL (30-55); Mean Corpuscular Hemoglobin 28.8 pg (27-33); Mean Corpuscular Volume 83.3 fl (82-101); Mean Platelet Volume 9.3 fL (7.4-10.4); Monocytes # 0.7 10^3/uL (0.2-0.9); Monocytes % 5.8 %; Neutrophils # 10.57 10^3/uL (1.8-7.7); Nucleated Red Blood Cells % 0 %; Platelet Count 220 10^3/cmm (157-399); Red Cell Distribution Width 13.3 % (12.1-15.1); White Blood Count 12.29 10^3/uL (3.29-11.43)
[2023-05-21 19:52] LABS: Alanine Aminotransferase 6 U/L (0-41); Albumin Level 4.3 g/dL (3.5-5.2); Alkaline Phosphatase 86 U/L (40-130); Anion Gap 16.2 (5-19); Aspartate Amino Transferase 12 U/L (0-40); Blood Urea Nitrogen 9 mg/dL (8-23); Calcium 8.7 mg/dL (8.5-10.5); Carbon Dioxide 21 mmol/L (22-29); Chloride 100 mmol/L (98-107); Globulin 2.4 g/dL (1.3-4.6); Glucose 160 mg/dL (65-115); Osmolality Calculated 278 mOsm/kg (285-295); Potassium 4.2 mmol/L (3.5-5.1); Sodium 133 mmol/L (136-145); Total Bilirubin 0.5 mg/dL (0.15-1.2); Total Protein 6.7 g/dL (6.6-8.7)
--- NOTE | 2023-05-21 22:36 | CTR_ITS ---
PROCEDURE INFORMATION: Exam: CT Abdomen And Pelvis With Contrast Exam date and time: 05/21/2023 10:44 PM Age: 82 years old Clinical indication: Nausea and vomiting; Abdominal pain; Generalized; Patient HX: Abd pain with n/v; Additional info: Abd pain, vomiting TECHNIQUE: Imaging protocol: Computed tomography of the abdomen and pelvis with contrast. Radiation optimization: All CT scans at this facility use at least one of these dose optimization techniques: automated exposure control; mA and/or kV adjustment per patient size (includes targeted exams where dose is matched to clinical indication); or iterative reconstruction. Contrast material: OMNI 350; Contrast volume: 100 ml; Contrast route: INTRAVENOUS (IV); REPORTING DATA: Count of CT and Cardiac NM exams in prior 12 months: This patient has received 3 known CTs and 0 known cardiac nuclear medicine studies in the 12 months prior to the current study. COMPARISON: CT abdomen pelvis wo con [id number] 12/09/2022 7:57 PM RADIATION DOSE METRICS: Total DLP (mGy-cm): 471.13 FINDINGS: Lungs: Mild atelectasis versus fibrosis noted at the lung bases. Diaphragm: There is a small hiatal hernia present. Liver: The liver is unremarkable in appearance. Gallbladder and bile ducts: Gallbladder demonstrates small calcified gallstones up to 5 mm. There are no secondary signs of cholecystitis. Pancreas: The pancreas is normal in appearance. No pancreatic duct dilatation. Spleen: No focal splenic lesion. No splenomegaly. Adrenal glands: The adrenal glands appear within normal limits. Kidneys and ureters: Right kidney demonstrates a simple appearing 10 mm cyst. No solid masses in the kidneys. No hydronephrosis. No obstructive uropathy. Stomach and bowel: Empty stomach appears unremarkable. The small bowel is unremarkable as demonstrated. Diverticulosis of the colon. No evidence of acute diverticulitis. Appendix: No evidence of appendicitis. Intraperitoneal space: No pneumoperitoneum. No significant fluid collection. Vasculature: There is an IVC filter present. The aorta is atherosclerotic. No aortic aneurysm. Bilateral patent iliac artery stents are noted. Lymph nodes: No pathologically enlarged lymph nodes are demonstrated. Urinary bladder: Unremarkable as visualized. Reproductive: Enlarged prostate gland noted. The prostate measures 6.2 cm transverse x 4.9 cm AP x 7.2 cm craniocaudal. Bones/joints: Old subcapital left hip fracture. Scoliosis of the lumbar spine. Moderate L2 compression fracture which appears acute. Advanced degenerative disc changes throughout the lumbar spine. Soft tissues: Unremarkable. CT/CT abdomen pelvis w con* [id number] IMPRESSION: 1. Moderate L2 compression fracture which appears acute. 2. Old subcapital left hip fracture. 3. Gallbladder demonstrates small calcified gallstones up to 5 mm. There are no secondary signs of cholecystitis. 4. Bilateral patent iliac artery stents are noted. 5. Enlarged prostate gland noted. 6. Diverticulosis of the colon. No evidence of acute diverticulitis. COMMENTS: 1. Consistent with the [employer]'s Incidental Findings Committee white paper (J Am Hong Radiol 2018): Any incidental renal lesion less than 1 cm or classified as too small to characterize, or any incidental cystic renal lesion characterized as simple-appearing, is likely benign. No follow-up imaging is recommended for these lesions per consensus recommendations based on imaging criteria. 2. For patients with an IVC filter, recommend assessment for a management plan for the patient's IVC filter. If there is no established management plan, recommend referral to an interventional clinician on a nonemergent basis for evaluation.
--- NOTE | 2023-05-21 22:37 | XRR_ITS ---
PROCEDURE INFORMATION: Exam: XR Chest Exam date and time: 05/21/2023 10:46 PM Age: 82 years old Clinical indication: Fever; Prior surgery; Surgery date: 6+ months; Surgery type: Cabg TECHNIQUE: Imaging protocol: Radiologic exam of the chest. Views: 1 view. COMPARISON: CR (CHEST, ) 04/03/2023 3:05 PM FINDINGS: Lungs: The lungs are hyperinflated, consistent with COPD. Chronic increased interstitial lung markings, unchanged. No consolidative pulmonary infiltrates are noted. Pleural spaces: No pleural effusion. No pneumothorax. Heart/Mediastinum: No cardiomegaly. Vasculature: The thoracic aorta is atherosclerotic. Bones/joints: Median sternotomy noted. XR/XR chest 1V portable [id number] IMPRESSION: 1. The lungs are hyperinflated, consistent with COPD. 2. No acute abnormality demonstrated. 3. There is no interval change from the prior examination.
[2023-05-21] MEDS: iohexol 350 mg/mL 500 mL Btl (per mL) IV (22:48)
[2023-05-21 23:10] VITALS: BP 117/62; PULSE 94; RESP 20; O2SAT 93
[2023-05-21 23:40] LABS: SARS Covid-2 Antigen negative (Negative)
[2023-05-21 23:46] LABS: Add Urine Microscopic? YES; Bacteria Urine TRACE /hpf; Bilirubin Urine Neg (Negative); Blood Urine 3+ (Negative); Glucose Urine UA Norm (Normal); Ketones Urine Negative (Negative); Leukocyte Esterase Urine Trace (Negative); Nitrate Urine Negative (Negative); Protein Urine 1+ (Negative); RBC Urine >100 /hpf (0-2); Specific Gravity, Urine 1.005 (1.005-1.030); Squamous Epithelial Cell Urine 0-4 /hpf (0-5); Urine Appearance Cloudy (CLEAR); Urine Color Yellow (Yellow); Urobilinogen Urine 1 mg/dL (Negative); WBC Urine 0-4 /hpf (0-5); pH Urine 7 (5-7)
[2023-05-21 23:47] LABS: Add Urine Culture? Yes
[2023-05-22 00:09] VITALS: BP 132/52; PULSE 65; RESP 18; O2SAT 91
[2023-05-22 00:44] VITALS: BP 135/69; PULSE 62; RESP 18; O2SAT 92
[2023-05-22] MEDS: levoFLOXacin 750 mg Tablet PO (00:44)
--- NOTE | 2023-05-22 05:06 | ED_ITS ---
HPI - Abdominal Pain General: Chief Complaint: Nausea/Vomiting/Diarrhea Stated Complaint: ferver Time Seen by Provider: 05/21/23 21:45 Source: patient and family History of Present Illness: 82-year-old male gentleman presenting not feeling well. He has had nausea and vomiting, generalized weakness, some abdominal discomfort, and mild mental status change. No definite fever. The patient self caths for urine, as he has a chronic outlet obstruction. MD elicited complaint: abdominal pain Associated Symptoms: Reports chills, nausea, poor appetite and vomiting; Denies diarrhea and dysuria Review of Systems Const: Reports: chills Card: Denies: chest pain or palpitations Resp: Denies: dyspnea, productive cough or non-productive cough GI: Reports: abdominal pain, nausea and vomiting; Denies: diarrhea : Reports: difficulty urinating; Denies: flank pain or dysuria Neuro: Denies: headache(s) PFS ED PFSH: Medical History Abnormal stress test Above knee amputation of left lower extremity Acute respiratory failure with hypoxia Acute respiratory failure with hypoxia Acute UTI CAD (coronary artery disease) Chest pain Clinical diagnosis of COVID-19 COPD (chronic obstructive pulmonary disease) COVID-19 Cystitis Diabetes Emphysema/COPD Encounter for postoperative care Encounter for postoperative care Encounter for postoperative care Epididymitis Fever Fracture of femoral neck, left GERD (gastroesophageal reflux disease) GERD (gastroesophageal reflux disease) History of GI bleed Hx pulmonary embolism Hyperlipemia, mixed Hypertension Hypothyroidism -Noted elevated TSH, normal free T4 -Continue levothyroxine Hypoxia Influenza A Influenza vaccine needed Inguinal nodule Lactic acidosis Metabolic acidosis On anticoagulant therapy Onychodystrophy Painful orthopaedic hardware Peripheral arterial disease Pneumonia due to COVID-19 virus Pressure ulcer of BKA stump, stage 2 Protracted bacterial bronchitis PVD (peripheral vascular disease) Pyuria Secondary bacterial pneumonia Sepsis Subcapital fracture of left hip Testicular swelling, left Type 2 diabetes mellitus with complication, without long-term current use of insulin -A1c at goal-6.2 -Accuchecks, ISS, hypoglycemia precautions -consistent carb diet as tolerated URI with cough and congestion Urinary retention UTI (urinary tract infection) Surgical History H/O cataract extraction RIGHT History of below-knee amputation of right lower extremity History 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 Family History Mother Diabetes Hypertension Other CAD (coronary artery disease) Myocardial infarction Social History Smoking and tobacco status: former smoker Second hand smoke exposure: No Smoking risk assessment/counseling performed?: No Alcohol intake: never Desire information about alcohol rehabilitation?: No Counseling given: No Substance/Drug Use: never Desire information about substance/drug rehabilitation?: No Counseling given: No Adopted: No Lives independently: Yes Household members: spouse Marital status: Current occupational status: retired Current gender identity: Male Physical Exam Const: GENERAL APPEARANCE: cooperative, ill appearing (mildly) and frail appearing NUTRITIONAL APPEARANCE: thin HENMT: COMMON NORMALS: normocephalic, atraumatic and Normal external nose present HEAD & SCALP: normocephalic and atraumatic FACE & SINUS: normal facial exam and face symmetric NOSE: Normal external nose present Eye: COMMON NORMALS: Equal, round and reactive pupils present and EOMs intact bilaterally PUPIL: Yes Equal, round and reactive pupils present Neck/C-Spine: GENERAL: Yes trachea midline Chest: CHEST: Yes Symmetrical chest wall rise Resp: COMMON NORMALS: normal respiratory effort, No retractions, No use of accessory muscles and clear to auscultation bilaterally AUSCULTATION: clear to auscultation bilaterally Cardio: COMMON NORMALS: regular rate and regular rhythm RATE: regular rate RHYTHM: regular rhythm GI: COMMON NORMALS: Normal to inspection, nondistended, normoactive bowel sounds present PALPATION: Yes Tenderness to palpation present (GI) (suprapubic) Extremity: COMMON NORMALS: no pedal edema Neuro: TRENT COMA SCALE: document GCS findings [place] coma scale eye opening: Spontaneous [place] coma scale verbal response: Orientated [place] coma scale motor response: Obey commands [place] coma scale total score: 15 SENSORY EXAM: Yes extremities (intact) Psych: COMMON NORMALS: speech normal SPEECH: Yes normal speech Skin: COMMON NORMALS: no rashes or lesions noted GENERAL SKIN EXAM: no rashes or lesions noted Course 2 Vital Signs: Vital signs: Vital Signs Temperature 98.1 F 05/21/23 18:22 Pulse Rate 62 05/22/23 00:44 Respiratory Rate 18 05/22/23 00:44 Blood Pressure 135/69 05/22/23 00:44 Pulse Oximetry 92 05/22/23 00:44 Oxygen Delivery Me thod Room Air 05/22/23 00:09 MDM - Abdominal Pain Medical Decision Making 82-year-old male who is feeling improved after some IV fluid, Zofran, etc. His white blood cell count is 12.3. CBC otherwise normal. He has a mildly low sodium of 133, otherwise BMP is not remarkable. Liver enzymes are normal. His urinalysis shows hematuria without definite signs of infection COVID antigen is negative. Chest x-ray is negative for any acute infiltrate. I suspect prostatitis in this patient, he has an impressively large prostate on CT. He has had prostatitis before, and family notes that he improved on antibiotics after having similar symptoms prior. A Collins was placed, and 600 cc of urine was drained. We will leave the Collins in for decompression of the bladder for now. He will be covered with antibiotics. Close outpatient follow-up. They know to return if any worsening symptoms. Lab Data 05/21/23 19:23 05/21/23 19:23 Labs/Radiology: Radiology Impressions Abdomen/Pelvis CT 05/21/23 22:36 IMPRESSION: 1. Moderate L2 compression fracture which appears acute. 2. Old subcapital left hip fracture. 3. Gallbladder demonstrates small calcified gallstones up to 5 mm. There are no secondary signs of cholecystitis. 4. Bilateral patent iliac artery stents are noted. 5. Enlarged prostate gland noted. 6. Diverticulosis of the colon. No evidence of acute diverticulitis. COMMENTS: 1. Consistent with the [employer]'s Incidental Findings Committee white paper (J Am Hong Radiol 2018): Any incidental renal lesion less than 1 cm or classified as too small to characterize, or any incidental cystic renal lesion characterized as simple-appearing, is likely benign. No follow-up imaging is recommended for these lesions per consensus recommendations based on imaging criteria. 2. For patients with an IVC filter, recommend assessment for a management plan for the patient's IVC filter. If there is no established management plan, recommend referral to an interventional clinician on a nonemergent basis for evaluation. Chest X-Ray 05/21/23 22:37 IMPRESSION: 1. The lungs are hyperinflated, consistent with COPD. 2. No acute abnormality demonstrated. 3. There is no interval change from the prior examination. Laboratory Results WBC 12.29 10^3/uL (3.29-11.43) H 05/21/23 19: RBC 4.90 10^6/uL (3.85-5.65) 05/21/23 19: Hgb 14.10 g/dL (11.27-16.99) 05/21/23 19: Hct 40.8 % (37-53) 05/21/23 19: MCV 83.3 fl (82-101) 05/21/23 19: MCH 28.8 pg (27-33) 05/21/23: MCHC 34.6 g/dL (30-55) 05/21/23: RDW 13.3 % (12.1-15.1) 05/21/23: Plt Count 220 10^3/cmm (157-399) 05/21/23: MPV 9.3 fL (7.4-10.4) 05/21/23 19: Neut % (Auto) 86.0 % 05/21/23 19: Lymph % (Auto) 6.7 % 05/21/23 19: [place] % (Auto) 5.8 % 05/21/23 19: Eos % (Auto) 0.8 % 05/21/23: Baso % (Auto) 0.4 % 05/21/23: Neut # (Auto) 10.57 10^3/uL (1.8-7.7) H 05/21/23 19: Lymph # (Auto) 0.8 10^3/uL (0.8-4.8) 05/21/23: [place] # (Auto) 0.7 10^3/uL (0.2-0.9) 05/21/23: Eos # (Auto) 0.1 10^3/uL (0.0-0.8) 05/21/23 19: Baso # (Auto) 0.1 10^3/uL (0.0-0.1) 05/21/23: Nucleated RBC % (auto) 0 % 05/21/23: Nucleated RBCs # 0.0 /100WBC 05/21/23 19: Sodium 133 mmol/L (136-145) L 05/21/23 19: Potassium 4.2 mmol/L (3.5-5.1) 05/21/23 19: Chloride 100 mmol/L (98-107) 05/21/23 19: Carbon Dioxide 21 mmol/L (22-29) L 05/21/23 19: Anion Gap 16.2 (5-19) 05/21/23 19: BUN 9 mg/dL (8-23) 05/21/23 19: Creatinine 0.7 mg/dL (0.7-1.2) 05/21/23 19: GFR Calculation Not Reportable 05/21/23: Glucose 160 mg/dL (65-115) H 05/21/23 19: Calculated Osmolality 278 mOsm/kg (285-295) L 05/21/23: Calcium 8.7 mg/dL (8.5-10.5) 05/21/23: Total Bilirubin 0.5 mg/dL (0.15-1.2) 05/21/23 19: AST 12 U/L (0-40) 05/21/23: ALT 6 U/L (0-41) 05/21/23: Alkaline Phosphatase 86 U/L (40-130) 05/21/23 19: Total Protein 6.7 g/dL (6.6-8.7) 05/21/23: Albumin 4.3 g/dL (3.5-5.2) 05/21/23: Globulin 2.4 g/dL (1.3-4.6) 05/21/23 19:23 Urine Color Yellow (Yellow) 05/21/23 23:06 Urine Appearance Cloudy (CLEAR) A 05/21/23 23:06 Urine pH 7 (5-7) 05/21/23 23:06 Ur Specific [place] 1.005 (1.005-1.030) 05/21/23 23:06 Urine Protein 1+ (Negative) H 05/21/23 23:06 Urine Glucose (UA) Norm (Normal) 05/21/23 23:06 Urine Ketones Negative (Negative) 05/21/23 23:06 Urine Blood 3+ (Negative) H 05/21/23 23:06 Urine Nitrate Negative (Negative) 05/21/23 23:06 Urine Bilirubin Neg (Negative) 05/21/23 23:06 Urine Urobilinogen 1 mg/dL (Negative) H 05/21/23 23:06 Ur Leukocyte Esterase Trace (Negative) H 05/21/23 23:06 Urine RBC >100 /hpf (0-2) H 05/21/23 23:06 Urine WBC 0-4 /hpf (0-5) H 05/21/23 23:06 Ur Squamous Epith Cells 0-4 /hpf (0-5) H 05/21/23 23:06 Amorphous Sediment Not Reportable 05/21/23 23:06 Urine Bacteria Trace /hpf (NONE) 05/21/23 23:06 SARS-CoV-2 Ag (Rapid) negative (Negative) 05/21/23 23:06 Discharge Plan Discharge Patient Disposition: Home Clinical Impression: 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 Condition: Stable Prescriptions: New levofloxacin 750 mg tablet 750 mg PO DAILY Qty: 30 0RF No Action aspirin 81 mg tablet,delayed release (DR/EC) 81 mg PO QAM (DME) blood-glucose meter [Blood Glucose Monitoring] Kit See Rx Instructions .ROUTE .MEDSUPPLY Qty: 1 0RF Rx Instructions: As directed (DME) lancets [Fingerstix Lancets] Misc See Rx Instructions .Route Qty: 100 0RF Rx Instructions: As directed Ventolin HFA 90 mcg/actuation HFA aerosol inhaler 1 inh inhalation Q6H PRN (Reason: shortness of breath or wheezing) Qty: 8.5 3RF (DME) lancets [OneTouch Delica Plus Lancet] 30 gauge misc See Rx Instructions .ROUTE .COMPLEX Qty: 100 0RF Dose Instruction: USE DIRECTED Rx Instructions: USE DIRECTED alendronate 70 mg tablet See Rx Instructions .ROUTE .COMPLEX Qty: 13 0RF Dose Instruction: TAKE 1 TABLET BY MOUTH EVERY SEVEN DAYS ON WEDNESDAY Rx Instructions: TAKE 1 TABLET BY MOUTH EVERY SEVEN DAYS ON WEDNESDAY gabapentin 300 mg capsule 300 mg PO TID Qty: 270 0RF levothyroxine 50 mcg tablet 50 mcg PO DAILY Qty: 90 0RF omeprazole 20 mg capsule,delayed release(DR/EC) 20 mg PO BID Qty: 180 0RF (DME) OneTouch Ultra Test Strip See Rx Instructions .Route Qty: 100 0RF Rx Instructions: test one time daily glipizide 5 mg tablet 2.5 mg PO DAILY tamsulosin 0.4 mg capsule 0.4 mg PO DAILY simvastatin 40 mg tablet 40 mg PO QPM clopidogrel 75 mg tablet 75 mg PO DAILY Trelegy Ellipta 100-62.5-25 mcg blister with device 1 inh INHALATION DAILY Discharge Orders: Discharge ED (Routine); Ordered 05/22/23 Ordered By: Papo Falk Referrals: Dulce Maria Alonzo FNP [Primary Care Provider] - 1-3 days Patient Instructions: Prostatitis (ED), Urinary Retention in Men (ED), Collins Catheter Placement and Care (ED) Activity Restrictions/Additional Instructions: Return for worsening mental status, fever despite 2-3 doses of antibiotics, vomiting liquids or medications, any other concerning sympotoms. See your doctor early next week for removal of the catheter. Coding Level of Care Code ED Shaper Setter for Oniel Ozuna
== END 2023-05-22 00:45 | disposition home or self-care (01) ==
PROVIDERS: Nurse Practitioner Family; Emergency Provider Emergency Medicine; PCP Nurse Practitioner Family
DX: N41.1 Chronic prostatitis (principal); Z79.82 Long term (current) use of aspirin; Z79.02 Long term (current) use of antithrombotics/antiplatelets; Z79.84 Long term (current) use of oral hypoglycemic drugs; Z20.822 Contact with and (suspected) exposure to COVID-19; I25.10 Atherosclerotic heart disease of native coronary artery without angina pectoris; J44.9 Chronic obstructive pulmonary disease, unspecified; E11.9 Type 2 diabetes mellitus without complications; E78.2 Mixed hyperlipidemia; I10 Essential (primary) hypertension; Z89.511 Acquired absence of right leg below knee; Z95.1 Presence of aortocoronary bypass graft; Z87.891 Personal history of nicotine dependence
CPT/HCPCS: 36415; 51702; 71045; 74177; 80053; 81001; 85025; 87086; 87426; 99285; Q9967

== ENCOUNTER 2023-05-27 08:44 | Emergency (ER) | payer MEDICARE, MEDICAID, SELFPAY ==
--- NOTE | 2023-05-27 08:49 | ED_ITS ---
HPI - Male Genitourinary General: Chief complaint: Urogenital-Male Stated complaint: blood when peeing Time Seen by Provider: 05/27/23 08:45 Source: patient and family Mode of arrival: wheelchair Limitations: no limitations History of Present Illness: Patient is a nice 82-year-old male who presents to ED today with a complaint of inability to advance his self catheters and blood that he has noticed from the tip of his penis. Patient states he chronically self caths due to chronic bladder outlet obstruction. Patient states he recently had a Collins placed here in the ED on 05/22 and was treated for prostatitis. Patient states he had the Collins removed approximately 2 to 3 days ago. He states following this he was able to self cath but noticed this morning he could not advance the catheter and noticed a small amount of blood so came to the emergency department. Patient states he does have a urologist located in [place]-Dr. Morton. Patient is not having any pain at this time. No fevers. MD Complaint: other (hematuria; not able to self cath) Onset (ago): day(s) (yesterday) Relieving factors: none Exacerbating factors: none Associated symptoms: Reports hematuria; Deny dysuria, nausea or vomiting Related Data: Sexually active: No Review of Systems Const: Denies: fever(s), chills, body aches, fatigue or malaise Card: Denies: chest pain Resp: Denies: dyspnea GI: Denies: abdominal pain, nausea, vomiting or diarrhea : Reports: difficulty urinating (chronic-self caths), urinary dribbling (chronic) and hematuria; Denies: flank pain, dysuria, testicular pain, testicular mass or scrotal swelling Musc: Denies: neck pain, back pain, extremity pain or joint pain Skin/Breast: Denies: rash Neuro: Denies: headache(s) or dizziness [facility] ED PFSH: Medical History Abnormal stress test Above knee amputation of left lower extremity Acute respiratory failure with hypoxia Acute respiratory failure with hypoxia Acute UTI CAD (coronary artery disease) Chest pain Clinical diagnosis of COVID-19 COPD (chronic obstructive pulmonary disease) COVID-19 Cystitis Diabetes Emphysema/COPD Encounter for postoperative care Encounter for postoperative care Encounter for postoperative care Epididymitis Fever Fracture of femoral neck, left GERD (gastroesophageal reflux disease) GERD (gastroesophageal reflux disease) History of GI bleed Hx pulmonary embolism Hyperlipemia, mixed Hypertension Hypothyroidism -Noted elevated TSH, normal free T4 -Continue levothyroxine Hypoxia Influenza A Influenza vaccine needed Inguinal nodule Lactic acidosis Metabolic acidosis On anticoagulant therapy Onychodystrophy Painful orthopaedic hardware Peripheral arterial disease Pneumonia due to COVID-19 virus Pressure ulcer of BKA stump, stage 2 Protracted bacterial bronchitis PVD (peripheral vascular disease) Pyuria Secondary bacterial pneumonia Sepsis Subcapital fracture of left hip Testicular swelling, left Type 2 diabetes mellitus with complication, without long-term current use of insulin -A1c at goal-6.2 -Accuchecks, ISS, hypoglycemia precautions -consistent carb diet as tolerated URI with cough and congestion Urinary retention UTI (urinary tract infection) Surgical History H/O cataract extraction RIGHT History of below-knee amputation of right lower extremity History 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 Family History Mother Diabetes Hypertension Other CAD (coronary artery disease) Myocardial infarction Social History Smoking and tobacco status: former smoker Second hand smoke exposure: No Smoking risk assessment/counseling performed?: No Alcohol intake: never Desire information about alcohol rehabilitation?: No Counseling given: No Substance/Drug Use: never Desire information about substance/drug rehabilitation?: No Counseling given: No Adopted: No Lives independently: Yes Household members: spouse Marital status: Current occupational status: retired Current gender identity: Male Physical Exam Const: COMMON NORMALS: no acute distress, patient oriented x3, no limitations, alert and well nourished GENERAL APPEARANCE: cooperative ORIENTATION/CONSCIOUSNESS: Yes awake, Yes oriented to person, Yes oriented to place and Yes oriented to time Resp: COMMON NORMALS: normal respiratory effort and clear to auscultation bilaterally AUSCULTATION: clear to auscultation bilaterally Cardio: COMMON NORMALS: regular rate and regular rhythm RATE: regular rate RHYTHM: regular rhythm GI: COMMON NORMALS: Normal to inspection, nondistended, normoactive bowel sounds present, Soft to palpation, non-tender, No hepatosplenomegaly present and no masses PALPATION: Yes Soft to palpation and Yes No hepatosplenomegaly present : COMMON NORMALS: Yes no CVA tenderness BLADDER/KIDNEY EXAM: Yes no CVA tenderness PENIS: normal penis MEATUS: other (small amount of blood noticed at meatus) SCROTUM: Yes testes descended bilaterally TESTES: Yes testicular lie normal Back/Pelvis: COMMON NORMALS: no CVA tenderness Extremity: NARRATIVE EXTREMITY EXAM: bilateral LE amputations Neuro: COMMON NORMALS: patient oriented x3 SENSORIUM/ORIENTATION: Yes alert, Yes oriented to person, Yes oriented to place and Yes oriented to time Skin: COMMON NORMALS: no rashes or lesions noted GENERAL SKIN EXAM: no rashes or lesions noted Course Consultations: Consultation #1: Dr. Morton-[facility]-will accept patient, recommend NPO, will take to OR/CBI upon arrival Vital Signs: Vital signs: Vital Signs Pulse Rate 88 05/27/23 14:09 Respiratory Rate 15 05/27/23 14:09 Blood Pressure 154/74 05/27/23 14:09 Pulse Oximetry 95 05/27/23 14:09 Oxygen Delivery Me thod Room Air 05/27/23 14:09 MDM - Male Medical Decision Making We were easily able to advance the catheter initially. We got gross hematuric return. Bladder was irrigated with over 2 L total. We irrigated till clear 2-3 times and on recheck 15 minutes later he would be having gross hematuria again. Unfortunately we do not have any urology coverage. Spoke to Dr. Le and he agreed with the decision for transfer. Patient just underwent CT abdomen/pelvis imaging approximately 4 days ago. I do not think this needs to be repeated again. Urine is STLL uncollected by staff midwife/apprenticeship director despite me prompting several times. He is already Levaquin for UTI/prostatitis. He has no signs or symptoms of prostatitis at this time. I spoke to Dr. Morton/urology at [facility] who will consult on him upon arrival and plan or OR/CBI. Dr. Travis will be admitting hospitalist. Lab Data 05/27/23 09:36 05/27/23 09:36 Laboratory Results WBC 6.46 10^3/uL (3.29-11.43) 05/27/23 09:36 RBC 4.62 10^6/uL (3.85-5.65) 05/27/23 09:36 Hgb 13.50 g/dL (11.27-16.99) 05/27/23 09:36 Hct 40.0 % (37-53) 05/27/23 09:36 MCV 86.6 fl (82-101) 05/27/23 09:36 MCH 29.2 pg (27-33) 05/27/23 09:36 MCHC 33.8 g/dL (30-55) 05/27/23 09:36 RDW 13.1 % (12.1-15.1) 05/27/23 09:36 Plt Count 207 10^3/cmm (157-399) 05/27/23 09:36 MPV 9.3 fL (7.4-10.4) 05/27/23 09:36 Neut % (Auto) 66.9 % 05/27/23 09:36 Lymph % (Auto) 19.7 % 05/27/23 09:36 [place] % (Auto) 8.2 % 05/27/23 09:36 Eos % (Auto) 3.9 % 05/27/23 09:36 Baso % (Auto) 0.8 % 05/27/23 09:36 Neut # (Auto) 4.33 10^3/uL (1.8-7.7) 05/27/23 09:36 Lymph # (Auto) 1.3 10^3/uL (0.8-4.8) 05/27/23 09:36 [place] # (Auto) 0.5 10^3/uL (0.2-0.9) 05/27/23 09:36 Eos # (Auto) 0.3 10^3/uL (0.0-0.8) 05/27/23 09:36 Baso # (Auto) 0.1 10^3/uL (0.0-0.1) 05/27/23 09:36 Nucleated RBC % (auto) 0 % 05/27/23 09:36 Nucleated RBCs # 0.0 /100WBC 05/27/23 09:36 Sodium 136 mmol/L (136-145) 05/27/23 09:36 Potassium 3.7 mmol/L (3.5-5.1) 05/27/23 09:36 Chloride 102 mmol/L (98-107) 05/27/23 09:36 Carbon Dioxide 24 mmol/L (22-29) 05/27/23 09:36 Anion Gap 13.7 (5-19) 05/27/23 09:36 BUN 11 mg/dL (8-23) 05/27/23 09:36 Creatinine 0.9 mg/dL (0.7-1.2) 05/27/23 09:36 GFR Calculation Not Reportable 05/27/23 09:36 Glucose 132 mg/dL (65-115) H 05/27/23 09:36 Calculated Osmolality 283 mOsm/kg (285-295) L 05/27/23 09:36 Calcium 8.3 mg/dL (8.5-10.5) L 05/27/23 09:36 Total Bilirubin 0.3 mg/dL (0.15-1.2) 05/27/23 09:36 AST 13 U/L (0-40) 05/27/23 09:36 ALT 6 U/L (0-41) 05/27/23 09:36 Alkaline Phosphatase 70 U/L (40-130) 05/27/23 09:36 Total Protein 6.3 g/dL (6.6-8.7) L 05/27/23 09:36 Albumin 3.7 g/dL (3.5-5.2) 05/27/23 09:36 Globulin 2.6 g/dL (1.3-4.6) 05/27/23 09:36 Discharge Plan Discharge Patient Disposition: Xfer Short-Term Hosp Clinical Impression: Gross hematuria Condition: Stable Referrals: Dulce Maria Alonzo FNP [Primary Care Provider] - Coding Level of Care Code ED Timber Cruiser for Oniel Ozuna
[2023-05-27 08:56] VITALS: BP 147/65; PULSE 77; RESP 16; O2SAT 95
[2023-05-27 09:44] LABS: Basophils # 0.1 10^3/uL (0.0-0.1); Basophils % 0.8 %; Eosinophils # 0.3 10^3/uL (0.0-0.8); Eosinophils % 3.9 %; Lymphocytes # 1.3 10^3/uL (0.8-4.8); Lymphocytes % 19.7 %; Mean Corpuscular HGB Conc 33.8 g/dL (30-55); Mean Corpuscular Hemoglobin 29.2 pg (27-33); Mean Corpuscular Volume 86.6 fl (82-101); Mean Platelet Volume 9.3 fL (7.4-10.4); Monocytes # 0.5 10^3/uL (0.2-0.9); Monocytes % 8.2 %; Neutrophils # 4.33 10^3/uL (1.8-7.7); Neutrophils % 66.9 %; Nucleated Red Blood Cells % 0 %; Platelet Count 207 10^3/cmm (157-399); Red Blood Count 4.62 10^6/uL (3.85-5.65); Red Cell Distribution Width 13.1 % (12.1-15.1); White Blood Count 6.46 10^3/uL (3.29-11.43)
[2023-05-27 10:14] LABS: Alanine Aminotransferase 6 U/L (0-41); Albumin Level 3.7 g/dL (3.5-5.2); Alkaline Phosphatase 70 U/L (40-130); Anion Gap 13.7 (5-19); Aspartate Amino Transferase 13 U/L (0-40); Blood Urea Nitrogen 11 mg/dL (8-23); Calcium 8.3 mg/dL (8.5-10.5); Carbon Dioxide 24 mmol/L (22-29); Chloride 102 mmol/L (98-107); Globulin 2.6 g/dL (1.3-4.6); Glucose 132 mg/dL (65-115); Osmolality Calculated 283 mOsm/kg (285-295); Potassium 3.7 mmol/L (3.5-5.1); Sodium 136 mmol/L (136-145); Total Bilirubin 0.3 mg/dL (0.15-1.2); Total Protein 6.3 g/dL (6.6-8.7)
[2023-05-27 14:09] VITALS: BP 154/74; PULSE 88; RESP 15; O2SAT 95
[2023-05-27 16:33] LABS: Add Urine Microscopic? YES; Bilirubin Urine Neg (Negative); Blood Urine 3+ (Negative); Glucose Urine UA Norm (Normal); Ketones Urine Negative (Negative); Leukocyte Esterase Urine Negative (Negative); Nitrate Urine Negative (Negative); Protein Urine 3+ (Negative); Urine Appearance Turbid (CLEAR); Urine Color Red (Yellow); Urobilinogen Urine Norm (Negative); pH Urine 8 (5-7)
[2023-05-27 16:34] LABS: Add Urine Culture? Yes; Amorphous Sediment Urine 3+ /hpf; Mucus Urine 1+ /hpf; RBC Urine >100 /hpf (0-2); Squamous Epithelial Cell Urine 0-4 /hpf (0-5); WBC Urine 0-4 /hpf (0-5)
[2023-05-27 19:22] VITALS: BP 147/73; PULSE 73; O2SAT 94
== END 2023-05-27 21:26 | disposition short-term general hospital (02) ==
PROVIDERS: Emergency Provider Physician Assistant; PCP Nurse Practitioner Family
DX: R31.0 Gross hematuria (principal); Z87.891 Personal history of nicotine dependence; Z95.1 Presence of aortocoronary bypass graft; Z89.511 Acquired absence of right leg below knee; Z89.612 Acquired absence of left leg above knee; I25.10 Atherosclerotic heart disease of native coronary artery without angina pectoris; J44.9 Chronic obstructive pulmonary disease, unspecified; E11.9 Type 2 diabetes mellitus without complications; E78.2 Mixed hyperlipidemia; I10 Essential (primary) hypertension; Z87.440 Personal history of urinary (tract) infections
CPT/HCPCS: 36415; 51702; 80053; 81001; 85025; 87086; 99283

== ENCOUNTER → 2023-06-07 11:03 | Outpatient (BNVA) | payer MEDICARE, MEDICAID, SELFPAY | PROVIDERS: PCP Nurse Practitioner Family; Visit Provider Nurse Practitioner Family | DX: E11.9 Type 2 diabetes mellitus without complications (principal); E03.9 Hypothyroidism, unspecified; R31.9 Hematuria, unspecified | CPT/HCPCS: 83036; 84443 ==

== ENCOUNTER → 2023-09-08 13:43 | Outpatient (BNVA) | payer MEDICARE, MEDICAID, SELFPAY | PROVIDERS: PCP Nurse Practitioner Family; Visit Provider Nurse Practitioner Family | DX: N39.0 Urinary tract infection, site not specified (principal); E03.9 Hypothyroidism, unspecified; I10 Essential (primary) hypertension | CPT/HCPCS: 80053; 80061; 81000; 83036; 84443; 87086 ==

== ENCOUNTER → 2023-09-28 13:02 | Outpatient (BNVA) | payer MEDICARE, MEDICAID, SELFPAY | PROVIDERS: PCP Nurse Practitioner Family; Visit Provider Nurse Practitioner Family | DX: I25.10 Atherosclerotic heart disease of native coronary artery without angina pectoris (principal); I10 Essential (primary) hypertension; Z87.891 Personal history of nicotine dependence | CPT/HCPCS: 99214 ==

== ENCOUNTER 2023-12-21 12:37 | Outpatient (CLI) | payer MEDICARE, MEDICAID, SELFPAY ==
--- NOTE | 2023-12-21 12:39 | XRR_ITS ---
PROCEDURE INFORMATION: Exam: XR Chest Exam date and time: 12/21/2023 12:42 PM Age: 83 years old Clinical indication: Mass, lump, or swelling in the chest; Prior surgery; Surgery date: 6+ months; Surgery type: Bypass, open heart; Patient HX: Lump on left side of chest; Additional info: R07.89 - other chest pain TECHNIQUE: Imaging protocol: Radiologic exam of the chest. Views: 2 views. COMPARISON: CR (CHEST, ) 05/21/2023 10:46 PM FINDINGS: Lungs: COPD. No infiltrate or edema. Pleural spaces: Unremarkable. No pleural effusion. No pneumothorax. Heart/Mediastinum: Unremarkable. No cardiomegaly. Bones/joints: Previous median sternotomy and CABG. Osteopenia. Degenerative change in both AC joints as well as bilateral high-riding humeral heads. XR/XR chest 2V* [id number] IMPRESSION: No acute findings.
== END 2023-12-21 12:38 | disposition home or self-care (01) ==
LOC: RAD 12:38
PROVIDERS: PCP Nurse Practitioner Family; Visit Provider Nurse Practitioner Family
DX: R07.89 Other chest pain (principal); I10 Essential (primary) hypertension; E11.59 Type 2 diabetes mellitus with other circulatory complications
CPT/HCPCS: 71046; 80053; 83036

== ENCOUNTER → 2024-02-17 09:05 | Outpatient (BNVA) | payer MEDICARE, MEDICAID, SELFPAY | PROVIDERS: PCP Nurse Practitioner Family; Visit Provider Nurse Practitioner Family | DX: N39.0 Urinary tract infection, site not specified (principal); R79.89 Other specified abnormal findings of blood chemistry; I10 Essential (primary) hypertension; R79.82 Elevated C-reactive protein (CRP) | CPT/HCPCS: 80053; 81000; 83880; 85025; 86140; 87086 ==

== ENCOUNTER → 2024-03-02 09:21 | Outpatient (BNVA) | payer MEDICARE, MEDICAID, SELFPAY | PROVIDERS: PCP Nurse Practitioner Family; Visit Provider Nurse Practitioner Family | DX: N39.0 Urinary tract infection, site not specified (principal) | CPT/HCPCS: 81000; 87086 ==

== ENCOUNTER → 2024-03-21 10:26 | Outpatient (BNVA) | payer MEDICARE, MEDICAID, SELFPAY | PROVIDERS: PCP Nurse Practitioner Family; Visit Provider Orthopaedic Surgery | DX: M43.9 Deforming dorsopathy, unspecified (principal); S30.0XXA Contusion of lower back and pelvis, initial encounter; X58.XXXA Exposure to other specified factors, initial encounter; M54.9 Dorsalgia, unspecified | CPT/HCPCS: 72110; 99214 ==

== ENCOUNTER → 2024-04-05 13:40 | Outpatient (BNVA) | payer MEDICARE, MEDICAID, SELFPAY | PROVIDERS: PCP Nurse Practitioner Family; Visit Provider Internal Medicine | DX: I25.10 Atherosclerotic heart disease of native coronary artery without angina pectoris (principal); I73.9 Peripheral vascular disease, unspecified; E11.59 Type 2 diabetes mellitus with other circulatory complications; E78.2 Mixed hyperlipidemia; J44.9 Chronic obstructive pulmonary disease, unspecified; K21.9 Gastro-esophageal reflux disease without esophagitis; Z87.891 Personal history of nicotine dependence; I10 Essential (primary) hypertension; Z79.84 Long term (current) use of oral hypoglycemic drugs | CPT/HCPCS: 99214 ==

== ENCOUNTER → 2024-06-07 10:26 | Outpatient (BNVA) | payer MEDICARE, MEDICAID, SELFPAY | PROVIDERS: PCP Nurse Practitioner Family; Visit Provider Nurse Practitioner Family | DX: E11.59 Type 2 diabetes mellitus with other circulatory complications (principal); I10 Essential (primary) hypertension; R53.83 Other fatigue; J44.9 Chronic obstructive pulmonary disease, unspecified | CPT/HCPCS: 80053; 80061; 83036; 85025 ==

== ENCOUNTER → 2024-06-20 10:01 | Outpatient (BNVA) | payer MEDICARE, MEDICAID, SELFPAY | PROVIDERS: PCP Nurse Practitioner Family; Visit Provider Orthopaedic Surgery | DX: M43.9 Deforming dorsopathy, unspecified (principal) | CPT/HCPCS: 99213 ==

== ENCOUNTER → 2024-07-12 09:06 | Outpatient (BNVA) | payer MEDICARE, MEDICAID, SELFPAY | PROVIDERS: PCP Nurse Practitioner Family; Visit Provider Nurse Practitioner Family | DX: R13.10 Dysphagia, unspecified (principal); E11.59 Type 2 diabetes mellitus with other circulatory complications | CPT/HCPCS: 84439; 84443 ==

== ENCOUNTER 2024-07-24 07:03 | Outpatient (CLI) | payer MEDICARE, MEDICAID, SELFPAY ==
--- NOTE | 2024-07-24 07:45 | US_ITS ---
WS: [id number] THYROID ULTRASOUND HISTORY: R13.10 - Dysphagia, unspecified COMPARISON: 04/08/2021 Right lobe: 1.0 cm x 0.7 cm x 1.8 cm (w x ap x l). Volume: 0.6 cm3. Atrophied heterogeneous thyroid. Similar to the prior study. No mass identified. Left lobe: 1.4 cm x 1.3 cm x 2.3 cm (w x ap x l). Volume: 2.2 cm3. Very heterogeneous small thyroid. No mass identified. Isthmus: 0.2 cm. US/US thyroid [id number] IMPRESSION: Small atrophic thyroid. No mass identified. Similar to the prior study
== END 2024-07-24 07:04 | disposition home or self-care (01) ==
PROVIDERS: PCP Nurse Practitioner Family; Visit Provider Nurse Practitioner Family
DX: R13.10 Dysphagia, unspecified (principal); E03.4 Atrophy of thyroid (acquired)
CPT/HCPCS: 76536

== ENCOUNTER → 2024-07-26 09:59 | Outpatient (BNVA) | payer MEDICARE, MEDICAID, SELFPAY | PROVIDERS: PCP Nurse Practitioner Family; Visit Provider Nurse Practitioner Family | DX: E11.59 Type 2 diabetes mellitus with other circulatory complications (principal); E04.1 Nontoxic single thyroid nodule; I10 Essential (primary) hypertension | CPT/HCPCS: 80053; 80061; 83036; 84443 ==

== ENCOUNTER → 2024-10-11 13:44 | Outpatient (BNVA) | payer MEDICARE, MEDICAID, SELFPAY | PROVIDERS: PCP Nurse Practitioner Family; Visit Provider Internal Medicine | DX: I25.10 Atherosclerotic heart disease of native coronary artery without angina pectoris (principal); E11.59 Type 2 diabetes mellitus with other circulatory complications; E78.2 Mixed hyperlipidemia; J44.9 Chronic obstructive pulmonary disease, unspecified; K21.9 Gastro-esophageal reflux disease without esophagitis; E11.51 Type 2 diabetes mellitus with diabetic peripheral angiopathy without gangrene; Z79.84 Long term (current) use of oral hypoglycemic drugs; I10 Essential (primary) hypertension | CPT/HCPCS: 99214 ==

== ENCOUNTER → 2024-12-06 13:35 | Outpatient (BNVA) | payer MEDICARE, MEDICAID, SELFPAY | PROVIDERS: PCP Nurse Practitioner Family; Visit Provider Nurse Practitioner Family | DX: I10 Essential (primary) hypertension (principal); E11.59 Type 2 diabetes mellitus with other circulatory complications; R53.83 Other fatigue | CPT/HCPCS: 80053; 80061; 83036; 84443; 85025 ==

== ENCOUNTER → 2025-02-16 08:03 | Outpatient (BNVA) | payer MEDICARE, MEDICAID, SELFPAY | PROVIDERS: PCP Nurse Practitioner Family; Visit Provider Nurse Practitioner Family | DX: I10 Essential (primary) hypertension (principal); E11.59 Type 2 diabetes mellitus with other circulatory complications | CPT/HCPCS: 80053; 80061; 83036; 84443; 85025 ==

== ENCOUNTER → 2025-03-21 13:41 | Outpatient (BNVA) | payer MEDICARE, MEDICAID, SELFPAY | PROVIDERS: PCP Nurse Practitioner Family; Visit Provider Internal Medicine | DX: I25.10 Atherosclerotic heart disease of native coronary artery without angina pectoris (principal); I73.9 Peripheral vascular disease, unspecified; E78.2 Mixed hyperlipidemia; J44.9 Chronic obstructive pulmonary disease, unspecified; K21.9 Gastro-esophageal reflux disease without esophagitis; E11.9 Type 2 diabetes mellitus without complications; Z79.84 Long term (current) use of oral hypoglycemic drugs; Z95.1 Presence of aortocoronary bypass graft; Z79.02 Long term (current) use of antithrombotics/antiplatelets; Z79.82 Long term (current) use of aspirin; Z87.891 Personal history of nicotine dependence | CPT/HCPCS: 99214 ==

== ENCOUNTER 2025-04-30 13:21 | Emergency (ER) | payer MEDICARE, MEDICAID, SELFPAY ==
--- NOTE | 2025-04-30 13:26 | ECG_ITS ---
[facility] 2025-[facility]30 Pat Name: Mauro Espino Department: Room: Gender: Male Client Onboarding Analyst: : 1940 Requested By: Ravindra Jiang Order Number: [id number] Alexys MD: Jeffery Wilkes M.D. Measurements Intervals [place] Rate: 82 P: 79 ME: 162 QRS: -51 QRSD: 138 T: 83 QT: 392 QTc: 461 Interpretive Statements SINUS RHYTHM WITH FREQUENT VENTRICULAR PREMATURE COMPLEXES INTRAVENTRICULAR CONDUCTION DELAY [130+ ms QRS DURATION] ANTEROSEPTAL MYOCARDIAL INFARCTION , OF INDETERMINATE AGE [40+ ms Q WAVE IN V1-V4] Compared to ECG 04/03/2023 21:37:06 Ventricular premature complex(es) now present Intraventricular conduction delay now present Myocardial infarct finding still present Electronically Signed On 05-05-2025 09:17:04 CDT by Jeffery Wilkes M.D. [email or web address]
[2025-04-30 13:27] VITALS: BP 148/79; PULSE 90; RESP 18; TEMP 37.3; O2SAT 92
--- OUTSIDE RECORDS SUMMARY | 2025-04-30 13:32 | XMS_ITS | Encounter Summary ---
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 Gender Identity Not on file Sexual Orientation Not on file documented as of this encounter Plan of Treatment Not on file documented as of this encounter Visit Diagnoses Diagnosis Other complications due to other vascular device, implant, and graft- Primary documented in this encounter Additional Health Concerns Infection Onset Date Last Indicated Resolved Time R/O COVID-19 2020 2020 06/08/2020 12:3 0 AM CDT COVID-19 2020 2020 07/06/2020 8:09 PM CDT documented as of this encounter Care Teams Insurance Manager Relationship Specialty Start Date End Date Dulce Maria Alonzo FNP [address] [place] [id number] PCP - General Nurse Practitioner Family 08/01/20 documented as of this encounter
--- OUTSIDE RECORDS SUMMARY | 2025-04-30 13:32 | XMS_ITS | Encounter Summary ---
Author Organization [facility] Address [address] [place] [address] Care Team Providers Care Flour Inspector Name Role Phone Dulce Maria Alonzo Primary Care Provider Encounter Details Date Type Department Care Team (Late st Contact Info) Description 05/23/2008 Outpatient Historical [facility] Carmella Santiago MD NO ADDRESS ON FILE Social History Tobacco Use Types Packs/Day Years Used Date Smoking Tobacco: Never Alcohol Use Standard Drinks/Week Comments No 0 (1 standard drink = 0.6 oz pur e alcohol) Sex and Gender Information Value Date Recorded Sex Assigned at Not on file 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 Gender Identity Not on file Sexual Orientation Not on file documented as of this encounter Plan of Treatment Not on file documented as of this encounter Visit Diagnoses Not on filedocumented in this encounter Additional Health Concerns Infection Onset Date Last Indicated Resolved Time R/O COVID-19 2020 2020 06/08/2020 12:3 0 AM CDT COVID-19 2020 2020 07/06/2020 8:09 PM CDT documented as of this encounter Care Teams Flour Inspector Relationship Specialty Start Date End Date Dulce Maria Alonzo FNP [address] [place] [id number] PCP - General Nurse Practitioner Family 08/01/20 documented as of this encounter
--- OUTSIDE RECORDS SUMMARY | 2025-04-30 13:32 | XMS_ITS | Encounter Summary ---
Author Organization [facility] Address [address] [place] [address] Care Team Providers Care Seamer Panty Hose Name Role Phone Dulce Maria Alonzo Primary Care Provider Encounter Details Date Type Department Care Team (Latest Contact Info) Description 03/17/2005 Outpatient Historical [facility] Medicine [place] [address] [facility] [address] [place] [address] Dulce Maria Alonzo FNP [address] [place] [address] [facility] ANTICOAG USE (Primary Dx); Toxic effect venom Social History Tobacco Use Types Packs/Day Years Used Date Smoking Tobacco: Never Assessed Sex and Gender Information Value Date Recorded Sex Assigned at Not on file 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 Gender Identity Not on file Sexual Orientation Not on file documented as of this encounter Plan of Treatment Not on file documented as of this encounter Visit Diagnoses Diagnosis 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
--- OUTSIDE RECORDS SUMMARY | 2025-04-30 13:32 | XMS_ITS | Encounter Summary ---
Author Organization [facility] Address [address] [place] [address] Care Team Providers Care Issue Clerk Name Role Phone Dulce Maria Alonzo Primary Care Provider Encounter Details Date Type Department Care Team (Late st Contact Info) Description 2008 Outpatient Historical [facility] Other, Sgf NO ADDRESS ON FILE Social History Tobacco Use Types Packs/Day Years Used Date Smoking Tobacco: Never Alcohol Use Standard Drinks/Week Comments No 0 (1 standard drink = 0.6 oz pur e alcohol) Sex and Gender Information Value Date Recorded Sex Assigned at Not on file 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
--- OUTSIDE RECORDS SUMMARY | 2025-04-30 13:32 | XMS_ITS | Encounter Summary ---
Author Organization [facility] Address [address] [place] [address] Care Team Providers Care Health And Safety Tech Name Role Phone Dulce Maria Alonzo Primary Care Provider Encounter Details Date Type Department Care Team (Late st Contact Info) Description 04/13/2008 Emergency [facility] Emergency Department [address] [place] [address] Ed, Physician NO ADDRESS ON FILE Amy Colmenares FNP [address] [place] [address] Abn React-Procedure NEC; Unspecified Place of Occurrence; Lower Limb Amputation, Below Knee (CMS/HCC) Social History Tobacco Use Types Packs/Day Years Used Date Smoking Tobacco: Never Alcohol Use Standard Drinks/Week Comments No 0 (1 standard drink = 0.6 oz pur e alcohol) Sex and Gender Information Value Date Recorded Sex Assigned at Not on file 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 Gender Identity Not on file Sexual Orientation Not on file documented as of this encounter Plan of Treatment Not on file documented as of this encounter Visit Diagnoses Diagnosis Other specified procedure as the cause of abnormal reaction of patient, or of later complication, without mention of misadventure at time of procedure Unspecified place of occurrence Lower limb amputation, below knee documented in this encounter Additional Health Concerns Infection Onset Date Last Indicated Resolved Time R/O COVID-19 2020 2020 06/08/2020 12:3 0 AM CDT COVID-19 2020 2020 07/06/2020 8:09 PM CDT documented as of this encounter Care Teams Health And Safety Tech Relationship Specialty Start Date End Date Dulce Maria Alonzo FNP [address] [place] [phone] PCP - General Nurse Practitioner Family 08/01/20 documented as of this encounter
--- OUTSIDE RECORDS SUMMARY | 2025-04-30 13:32 | XMS_ITS | Encounter Summary ---
Author Organization [facility] Address [address] [place] [address] Care Team Providers Care Principal Web Developer Name Role Phone Dulce Maria Alonzo Primary Care Provider Encounter Details Date Type Department Care Team (Latest Contact Info) Description 06/22/2008 Outpatient Historical [facility] Carmella Santiago MD NO ADDRESS ON FILE Encounter for Long-Term (Current) Use of Anticoagulants Social History Tobacco Use Types Packs/Day Years Used Date Smoking Tobacco: Never Alcohol Use Standard Drinks/Week Comments No 0 (1 standard drink = 0.6 oz pur e alcohol) Sex and Gender Information Value Date Recorded Sex Assigned at Not on file 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 Gender Identity Not on file Sexual Orientation Not on file documented as of this encounter Plan of Treatment Not on file documented as of this encounter Visit Diagnoses Diagnosis 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
--- OUTSIDE RECORDS SUMMARY | 2025-04-30 13:32 | XMS_ITS | Encounter Summary ---
Author Organization [facility] Address [address] [place] [address] Care Team Providers Care Eye Dropper Assembler Name Role Phone Dulce Maria Alonzo Primary Care Provider Encounter Details Date Type Department Care Team (Latest Contact Info) Description 08/05/2004 Outpatient Historical [facility] [address] [place] [address] AMBULANCE, [facility] LOWER EXTREMITY EMBOLISM (CMS/HCC) (Primary Dx) Social History Tobacco Use Types Packs/Day Years Used Date Smoking Tobacco: Never Assessed Sex and Gender Information Value Date Recorded Sex Assigned at Not on file 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 Gender Identity Not on file Sexual Orientation Not on file documented as of this encounter Plan of Treatment Not on file documented as of this encounter Visit Diagnoses Diagnosis 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
--- OUTSIDE RECORDS SUMMARY | 2025-04-30 13:32 | XMS_ITS | Encounter Summary ---
Author Organization [facility] Address [address] [place] [address] Care Team Providers Care Business Technology Teacher Name Role Phone Dulce Maria Alonzo Primary Care Provider Encounter Details Date Type Department Care Team (Late st Contact Info) Description 07/04/2008 Outpatient Historical [facility] Other, Sgf NO ADDRESS ON FILE Social History Tobacco Use Types Packs/Day Years Used Date Smoking Tobacco: Never Alcohol Use Standard Drinks/Week Comments No 0 (1 standard drink = 0.6 oz pur e alcohol) Sex and Gender Information Value Date Recorded Sex Assigned at Not on file 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
--- OUTSIDE RECORDS SUMMARY | 2025-04-30 13:32 | XMS_ITS | Encounter Summary ---
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, Unspecified (CMS/HCC); Bladder Neck Obstruction; Other and Unspecified Hyperlipidemia; Lower Limb Amputation, Below Knee (CMS/HCC); Personal History of Other Lymphatic and Hematopoietic Neoplasm; Personal History of Tobacco Use, Presenting Hazards to Health; BPH w Urinary Obs/Luts; Other Abnormal Glucose Social History Tobacco Use Types Packs/Day Years Used Date Smoking Tobacco: Never Alcohol Use Standard Drinks/Week Comments No 0 (1 standard drink = 0.6 oz pur e alcohol) Sex and Gender Information Value Date Recorded Sex Assigned at Not on file Legal 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 Gender Identity Not on file Sexual Orientation Not on file documented as of this encounter Plan of Treatment Not on file documented as of this encounter Procedures Procedure Name Priority Date/Time Associated Diagnosis Comments POC GLUCOSE Routine 04/28/2008 11:42 AM CDT POC GLUCOSE Routine 04/28/2008 5:40 AM CDT PROTIME-INR Routine 04/28/2008 2:22 AM CDT POC GLUCOSE Routine 04/27/2008 8:19 PM CDT POC GLUCOSE Routine 04/27/2008 5:08 PM CDT POC GLUCOSE Routine 04/27/2008 11:28 AM CDT POC GLUCOSE Routine 04/27/2008 5:08 AM CDT CBC WITH DIFFERENTIAL Routine 04/27/2008 2:20 AM CDT PROTIME-INR Routine 04/27/2008 2:20 AM CDT POC GLUCOSE Routine 04/26/2008 8:47 PM CDT POC GLUCOSE Routine 04/26/2008 5:12 PM CDT POC GLUCOSE Routine 04/26/2008 10:44 AM CDT POC GLUCOSE Routine 04/26/2008 5:54 AM CDT PROTIME-INR Routine 04/26/2008 2:00 AM CDT POC GLUCOSE Routine 04/25/2008 9:04 PM CDT POC GLUCOSE Routine 04/25/2008 4:41 PM CDT IR IVC FILTER Routine 04/25/2008 2:10 PM CDT POC GLUCOSE Routine 04/25/2008 11:12 AM CDT POC GLUCOSE Routine 04/25/2008 5:24 AM CDT PROTIME-INR Routine 04/25/2008 1:37 AM CDT POC GLUCOSE Routine 04/24/2008 8:05 PM CDT POC GLUCOSE Routine 04/24/2008 4:45 PM CDT PT AND APTT Routine 04/24/2008 2:10 PM CDT CREATININE Routine 04/24/2008 2:10 PM CDT POC GLUCOSE Routine 04/24/2008 11:30 AM CDT POC GLUCOSE Routine 04/24/2008 5:37 AM CDT CBC WITH DIFFERENTIAL Routine 04/24/2008 2:08 AM CDT PROTIME-INR Routine 04/24/2008 2:08 AM CDT HEMOGLOBIN A1C Routine 04/24/2008 2:08 AM CDT LIPID PANEL Routine 04/24/2008 2:08 AM CDT COMPREHENSIVE METABOLIC PANEL Routine 04/24/2008 2:08 AM CDT POC GLUCOSE Routine 04/23/2008 11:43 PM CDT XR CHEST PA AND LATERAL 2 VW Routine 04/23/2008 10:23 PM CDT documented in this encounter Results * (ABNORMAL) POC GLUCOSE (04/28/2008 11:42 AM CDT) [facility] Signature GLUCOSE POC 105(H) 60 - 100 mg/dL [facility] Venous blood specimen (specimen) 04/28/2008 11:42 AM CDT 04/30/2008 7:10 AM CDT us Abisai Perez MD POINT OF CARE TESTING Final Resu lt INTERFACE SYSTEM Refer to clinic/hospital department [facility] CLIA# [id number] [address] [place] [address] * (ABNORMAL) POC GLUCOSE (04/28/2008 5:40 AM CDT) GLUCOSE POC 110(H) 60 - 100 mg/dL [facility] Venous blood specimen (specimen) 04/28/2008 5:40 AM CDT 04/30/2008 7:08 AM CDT us Abisai Perez MD POINT OF CARE TESTING Final Resu lt Performing Organization Address [facility] Phone Number INTERFACE SYSTEM Refer to clinic/hospital department [facility] CLIA# [id number] [address] [place] [address] * (ABNORMAL) PROTIME-INR (04/28/2008 2:22 AM CDT) PROTIME 30.1(H) 12.8 - 15.8 Secs [facility] Comment:ansiAs of 09/09/2007 note change in normal range. INR 2.6 [facility] Comment: Expected Values for INR: DVT/PE Goal INR 2.5; range 2.0 - 3.0 Valve Replacement Tissue Goal INR 2.5; range 2.0 - 3.0 Mechanical Goal INR 3.0; range 2.5 - 3.5 POST-CA Goal INR 2.5; range 2.0 - 3.0 or Goal 3.0; range 2.5 - 3.5 Atrial Fibrillation Goal INR 2.5; range 2.0 - 3.0 Ischemic Stroke Goal INR 2.5; range 2.0 - 3.0 For additional information see Guidelines for Anticoagulation available from the pharmacy [facility] [place]. [phone] Blood specimen (specimen) 04/28/2008 2:22 AM CDT 04/28/2008 2:54 AM CDT us Octavio Maradiaga MD HEMATOLOGY ORDERABLES Final R esult Performing Organization Address [facility] Phone Number INTERFACE SYSTEM Refer to clinic/[facility] department [facility] CLIA# [id number] [address] [place] [address] * (ABNORMAL) POC GLUCOSE (04/27/2008 8:19 PM CDT) GLUCOSE POC 159(H) 60 - 100 mg/dL [facility] COMMENT POC Notify [facility] Venous blood specimen (specimen) 04/27/2008 8:19 PM CDT 04/30/2008 7:07 AM CDT us Abisai Perez MD POINT OF CARE TESTING Final Resu lt Performing Organization Address [facility] de Phone Number INTERFACE SYSTEM Refer to clinic/hospital department [facility] CLIA# [id number] [address] [place] [address] * (ABNORMAL) POC GLUCOSE (04/27/2008 5:08 PM CDT) GLUCOSE POC 154(H) 60 - 100 mg/dL [facility] COMMENT POC Notify [facility] Venous blood specimen (specimen) 04/27/2008 5:08 PM CDT 04/30/2008 7:06 AM CDT us Abisai Perez MD POINT OF CARE TESTING Final Resu lt Performing Organization Address [facility] de Phone Number INTERFACE SYSTEM Refer to clinic/hospital department [facility] CLIA# [id number] [address] [place] [address] * (ABNORMAL) POC GLUCOSE (04/27/2008 11:28 AM CDT) GLUCOSE POC 148(H) 60 - 100 mg/dL [facility] COMMENT POC Follow Protocol [facility] Venous blood specimen (specimen) 04/27/2008 11:28 AM CDT 04/27/2008 12:08 PM CDT us Abisai Perez MD POINT OF CARE TESTING Final Resu lt Performing Organization Address City/[facility] de Phone Number INTERFACE SYSTEM Refer to clinic/hospital department [facility] CLIA# [id number] [address] [place] [address] * (ABNORMAL) POC GLUCOSE (04/27/2008 5:08 AM CDT) GLUCOSE POC 124(H) 60 - 100 mg/dL [facility] Venous blood specimen (specimen) 04/27/2008 5:08 AM CDT 04/27/2008 5:52 AM CDT us Abisai Perez MD POINT OF CARE TESTING Final Resu lt Performing Organization Address City/State/[facility] de Phone Number INTERFACE SYSTEM Refer to clinic/hospital department [facility] CLIA# [id number] [address] [place] [address] * (ABNORMAL) PROTIME-INR (04/27/2008 2:20 AM CDT) INR 2.4 [facility] Comment: Expected Values for INR: DVT/PE Goal INR 2.5; range 2.0 - 3.0 Valve Replacement Tissue Goal INR 2.5; range 2.0 - 3.0 Mechanical Goal INR 3.0; range 2.5 - 3.5 POST-CA Goal INR 2.5; range 2.0 - 3.0 or Goal 3.0; range 2.5 - 3.5 Atrial Fibrillation Goal INR 2.5; range 2.0 - 3.0 Ischemic Stroke Goal INR 2.5; range 2.0 - 3.0 For additional information see Guidelines for Anticoagulation available from the pharmacy [facility] [phone] PROTIME 28.0(H) 12.8 - 15.8 Secs [facility] Comment:ansiAs of 09/09/2007 note change in normal range. Blood specimen (specimen) 04/27/2008 2:20 AM CDT 04/27/2008 2:33 AM CDT us Octavio Maradiaga MD HEMATOLOGY ORDERABLES Final R esult INTERFACE SYSTEM Refer to clinic/hospital department [facility] CLIA# [id number] [facility] [place] [address] * (ABNORMAL) CBC WITH DIFFERENTIAL (04/27/2008 2:20 AM CDT) WBC 9.6 4.8 - 10.8 K/ul [facility] MCH 30.4 27.0 - 34.0 pg [facility] NEUTROPHIL ABSOLUTE 6.4 2.0 - 8.0 K/ul [facility] NEUTROPHILS 66.9 42.2 - 75.2 % [facility] HEMATOCRIT 31.0(L) 41.0 - 53.0 % [facility] EOSINOPHILS 1.5 0.0 - 7.0 % [facility] PLATELETS 362 140 - 440 K/ul [facility] EOSINOPHIL ABSOLUTE 0.1 0.0 - 0.7 K/ul [facility] RBC 3.52(L) 4.60 - 6.20 Mil/ul [facility] LYMPHOCYTES 20.9(L) 24.0 - 44.0 % [facility] MCHC 34.5 30.0 - 35.0 g/dL [facility] LYMPHOCYTE ABSOLUTE 2.0 1.2 - 4.0 K/ul [facility] MCV 88.1 84.0 - 103.0 Fl [facility] MPV 8.9 8.9 - 12.8 Fl [facility] BASOPHILS ABSOLUTE 0.0 0.0 - 0.2 K/ul [facility] BASOPHILS 0.3 0.0 - 1.0 % [facility] HEMOGLOBIN 10.7(L) 14.0 - 18.0 g/dL [facility] RDW 13.9 11.0 - 14.5 % [facility] MONOCYTE ABSOLUTE 1.0(H) 0.1 - 0.6 K/ul [facility] MONOCYTES 10.4(H) 2.0 - 10.0 % [facility] Blood specimen (specimen) 04/27/2008 2:20 AM CDT 04/27/2008 2:33 AM CDT us Abisai Perez MD HEMATOLOGY ORDERABLES Final Resu lt Performing Organization Address [facility] Phone Number INTERFACE SYSTEM Refer to clinic/hospital department [facility] CLIA# [id number] [address] [place] [address] * (ABNORMAL) POC GLUCOSE (04/26/2008 8:47 PM CDT) GLUCOSE POC 205(H) 60 - 100 mg/dL [facility] Venous blood specimen (specimen) 04/26/2008 8:47 PM CDT 04/27/2008 6:10 AM CDT us Abisai Perez MD POINT OF CARE TESTING Final Resu Performing Organization Address [facility] Phone Number INTERFACE SYSTEM Refer to clinic/hospital department [facility] CLIA# [id number] [address] [place] [address] * (ABNORMAL) POC GLUCOSE (04/26/2008 5:12 PM CDT) GLUCOSE POC 193(H) 60 - 100 mg/dL [facility] Venous blood specimen (specimen) 04/26/2008 5:12 PM CDT 04/27/2008 6:10 AM CDT us Abisai Perez MD POINT OF CARE TESTING Final Resu Performing Organization Address [facility] Phone Number INTERFACE SYSTEM Refer to clinic/hospital department [facility] CLIA# [id number] [address] [place] [address] * (ABNORMAL) POC GLUCOSE (04/26/2008 10:44 AM CDT) GLUCOSE POC 148(H) 60 - 100 mg/dL [facility] Venous blood specimen (specimen) 04/26/2008 10:44 AM CDT 04/27/2008 11:04 AM CDT us Abisai Perez MD POINT OF CARE TESTING Final Resu lt Performing Organization Address [facility] Phone Number INTERFACE SYSTEM Refer to clinic/hospital department [facility] CLIA# [id number] [address] [place] [address] * (ABNORMAL) POC GLUCOSE (04/26/2008 5:54 AM CDT) GLUCOSE POC 115(H) 60 - 100 mg/dL [facility] Venous blood specimen (specimen) 04/26/2008 5:54 AM CDT 04/26/2008 6:26 AM CDT Abisai Perez MD POINT OF CARE TESTING Final Resu Performing Organization Address [facility] Phone Number INTERFACE SYSTEM Refer to clinic/hospital department [facility] CLIA# [id number] [address] [place] [address] * (ABNORMAL) PROTIME-INR (04/26/2008 2:00 AM CDT) PROTIME 25.5(H) 12.8 - 15.8 Secs [facility] Comment:As of 2007 not e change in normal range. INR 2.1 [facility] Comment: Expected Values for INR: DVT/PE Goal INR 2.5; range 2.0 - 3.0 Valve Replacement Tissue Goal INR 2.5; range 2.0 - 3.0 Mechanical Goal INR 3.0; range 2.5 - 3.5 POST-CA Goal INR 2.5; range 2.0 - 3.0 or Goal 3.0; range 2.5 - 3.5 Atrial Fibrillation Goal INR 2.5; range 2.0 - 3.0 Ischemic Stroke Goal INR 2.5; range 2.0 - 3.0 For additional information see Guidelines for Anticoagulation available from the pharmacy [facility]. [phone] Blood specimen (specimen) 04/26/2008 2:00 AM CDT 04/26/2008 2:22 AM CDT us Octavio Maradiaga MD HEMATOLOGY ORDERABLES Final R esult Performing Organization Address [facility] Phone Number INTERFACE SYSTEM Refer to clinic/hospital department [facility] CLIA# [id number] [address] [place] [address] * (ABNORMAL) POC GLUCOSE (04/25/2008 9:04 PM CDT) GLUCOSE POC 187(H) 60 - 100 mg/dL [facility] COMMENT POC Notify [facility] Venous blood specimen (specimen) 04/25/2008 9:04 PM CDT 04/26/2008 6:26 AM CDT us Abisai Perez MD POINT OF CARE TESTING Final Resu lt Performing Organization Address [facility] Phone Number INTERFACE SYSTEM Refer to clinic/hospital department [facility] CLIA# [id number] [address] [place] [address] * (ABNORMAL) POC GLUCOSE (04/25/2008 4:41 PM CDT) GLUCOSE POC 128(H) 60 - 100 mg/dL [facility] Venous blood specimen (specimen) 04/25/2008 4:41 PM CDT 04/26/2008 6:26 AM CDT us Abisai Perez MD POINT OF CARE TESTING Final Resu lt Performing Organization Address [facility] Phone Number INTERFACE SYSTEM Refer to clinic/hospital department [facility] CLIA# [id number] [address] [place] [address] * IR IVC FILTER (04/25/2008 2:10 PM CDT) Anatomical Region Laterality Modality Abdomen Other 04/25/2008 2:10 PM CDT Narrative 04/29/2008 10:39 PM CDT Exam: SP - IVC / Filter Date/Time of Exam: Apr 25, 2008 2:10:15 PM Clinical Indication: 67-year-old male with a reported pulmonary embolus, request has been submitted for IVC filter placement. Procedures: 1. Supervision of moderate conscious intravenous sedation. 2. Ultrasound-guided access to the right internal jugular vein. 3. Catheterization of the IVC. 4. Inferior venacavogram. 5. Fluoro-guided IVC filter placement. Procedures in Detail: The indications, alternatives, risks and benefits have been discussed with the family, and they have provided their informed consent. With moderate conscious intravenous sedation, sterile technique and local anesthesia, an ultrasound evaluation was performed of potential access sites. Then after successfully identifying a patent right internal jugular vein the ultrasound guidance was used to access the vein single wall with a 19-gauge needle. An ultrasound image documents the needle tip placement and is part of the medical record of the patient. Under fluoroscopic guidance, a 035 J-introducer guidewire was advanced and the needle was exchanged for a 5 [place]ic short vascular sheath. The introducer was exchanged for a 5 [place]ic pigtail catheter that was advanced to the IVC confluence. The guidewire was removed and the catheter was attached to the power injector. Contrast was administered for an inferior venacavogram. The IVC diameter was measured and the levels of the renal veins were noted. Over the guidewire, the catheter and sheath were exchanged for a Bard G-2 recovery filter delivery system. The IVC filter was positioned and deployed below the renal veins with the apex located at the L3 superior endplate level. A completion image was obtained and the delivery system was removed from the right neck region. Hemostasis was obtained by manual compression. The estimated blood loss is minimal, and there were no procedure-related complications. Impression: Successful placement of a potentially removable IVC filter. - Dictated By: Christian Romero M.D. Electronically Signed By: Christian Romero M.D. Date Signed: 04/29/08 Procedure Note Christian Romero - 04/29/2008 Exam: SP - IVC / Filter Date/Time of Exam: Apr 25, 2008 2:10:15 PM Clinical Indication: 67-year-old male with a reported pulmonary embolus,request has been submitted for IVC filter placement. Procedures: 1. Supervision of moderate conscious intravenous sedation. 2. Ultrasound-guided access to the right internal jugular vein. 3. Catheterization of the IVC. 4. Inferior venacavogram. 5. Fluoro-guided IVC filter placement. Procedures in Detail: The indications, alternatives, risks and benefitshave been discussed with the family, and they have provided their informed consent. With moderateconscious intravenous sedation, sterile technique and local anesthesia, an ultrasound evaluation wasperformed of potential access sites. Then after successfully identifying a patent right internal jugular veinthe ultrasound guidance was used to access the vein single wall with a 19-gauge needle. An ultrasoundimage documents the needle tip placement and is part of the medical record of the patient. Underfluoroscopic guidance, a 035 J-introducer guidewire was advanced and the needle was exchanged for a 5French short vascular sheath. The introducer was exchanged for a 5 Greenlandic pigtail catheter that wasadvanced to the IVC confluence. The guidewire was removed and the catheter was attached to the powerinjector. Contrast was administered for an inferior venacavogram. The IVC diameter was measured and the levels ofthe renal veins were noted. Over the guidewire, the catheter and sheath were exchanged for a Bard G- 2recovery filter delivery system. The IVC filter was positioned and deployed below the renal veinswith the apex located at the L3 superior endplate level. A completion image was obtained and the deliverysystem was removed from the right neck region. Hemostasis was obtained by manual compression. Theestimated blood loss is minimal, and there were no procedure-related complications. Impression: Successful placement of a potentially removable IVC filter. - Dictated By: Christian Romero M.D. Electronically Signed By: Christian Romero M.D. Date Signed: 04/29/08 us Abisai Perez MD IR ORDERABLES Final Result * (ABNORMAL) POC GLUCOSE (04/25/2008 11:12 AM CDT) GLUCOSE POC 120(H) 60 - 100 mg/dL [facility] Venous blood specimen (specimen) 04/25/2008 11:12 AM CDT 04/26/2008 11:13 AM CDT us Abisai Perez MD POINT OF CARE TESTING Final Resu lt Performing Organization Address [facility] Phone Number INTERFACE SYSTEM Refer to clinic/hospital department [facility] CLIA# [id number] [address] [place] [address] * (ABNORMAL) POC GLUCOSE (04/25/2008 5:24 AM CDT) GLUCOSE POC 120(H) 60 - 100 mg/dL [facility] Venous blood specimen (specimen) 04/25/2008 5:24 AM CDT 04/26/2008 5:43 AM CDT us Abisai Perez MD POINT OF CARE TESTING Final [facility] Performing Organization Address [facility] Phone Number INTERFACE SYSTEM Refer to clinic/hospital department [facility] CLIA# [id number] [address] [place] [address] * (ABNORMAL) PROTIME-INR (04/25/2008 1:37 AM CDT) INR 1.3 [facility] Comment: Expected Values for INR: DVT/PE Goal INR 2.5; range 2.0 - 3.0 Valve Replacement Tissue Goal INR 2.5; range 2.0 - 3.0 Mechanical Goal INR 3.0; range 2.5 - 3.5 POST-CA Goal INR 2.5; range 2.0 - 3.0 or Goal 3.0; range 2.5 - 3.5 Atrial Fibrillation Goal INR 2.5; range 2.0 - 3.0 Ischemic Stroke Goal INR 2.5; range 2.0 - 3.0 For additional information see Guidelines for Anticoagulation available from the pharmacy [facility] [phone] PROTIME 17.5(H) 12.8 - 15.8 Secs [facility] Comment:As of 2007 not e change in normal range. Blood specimen (specimen) 04/25/2008 1:37 AM CDT 04/25/2008 1:45 AM CDT us Octavio Maradiaga MD HEMATOLOGY ORDERABLES Final R esult Performing Organization Address [facility] de Phone Number [facility] CLIA# [id number] [address] [place] [address] * (ABNORMAL) POC GLUCOSE (04/24/2008 8:05 PM CDT) GLUCOSE POC 153(H) 60 - 100 mg/dL [facility] Venous blood specimen (specimen) 04/24/2008 8:05 PM CDT 04/26/2008 5:43 AM CDT us Abisai Perez MD POINT OF CARE TESTING Final Resu lt Performing Organization Address [facility] de Phone Number INTERFACE SYSTEM Refer to clinic/hospital department [facility] CLIA# [id number] [address] [place] [address] * (ABNORMAL) POC GLUCOSE (04/24/2008 4:45 PM CDT) GLUCOSE POC 119(H) 60 - 100 mg/dL [facility] Venous blood specimen (specimen) 04/24/2008 4:45 PM CDT 04/25/2008 6:51 AM CDT us Abisai Perez MD POINT OF CARE TESTING Final Resu lt Performing Organization Address [facility] de Phone Number [facility] CLIA# [id number] [address] [place] [address] * CREATININE (04/24/2008 2:10 PM CDT) CREATININE 1.0 0.7 - 1.5 mg/dL [facility] Blood specimen (specimen) 04/24/2008 2:10 PM CDT 04/24/2008 2:34 PM CDT Octavio Maradiaga MD CHEMISTRY ORDERABLES Final Re sult Performing Organization Address [facility] de Phone Number [facility] CLIA# [id number] [address] [place] [address] * (ABNORMAL) PT AND APTT (04/24/2008 2:10 PM CDT) INR 1.3 [facility] Comment: Expected Values for INR: DVT/PE Goal INR 2.5; range 2.0 - 3.0 Valve Replacement Tissue Goal INR 2.5; range 2.0 - 3.0 Mechanical Goal INR 3.0; range 2.5 - 3.5 POST-CA Goal INR 2.5; range 2.0 - 3.0 or Goal 3.0; range 2.5 - 3.5 Atrial Fibrillation Goal INR 2.5; range 2.0 - 3.0 Ischemic Stroke Goal INR 2.5; range 2.0 - 3.0 For additional information see Guidelines for Anticoagulation available from the pharmacy Em[facility] Boateng [phone] PTT 50.7(H) 22.5 - 36.5 Secs [facility] Comment: Therapeutic Range: Hi-level PE/DVT heparin protocol 80.1 -95.0 sec Lo-level PE/DVT heparin protocol 67.1 - 80.0 sec Cardiac Heparin Protocol 67.1 - 85.0 sec Neuro Heparin Protocol 67.1 - 80.0 sec As of 12/01/2007 note change in APTT Normal Range. PROTIME 17.3(H) 12.8 - 15.8 Secs [facility] Comment:As of 2007 not e change in normal range. Blood specimen (specimen) 04/24/2008 2:10 PM CDT 04/24/2008 2:34 PM CDT Octavio Maradiaga MD HEMATOLOGY ORDERABLES Edited Performing Organization Address [facility] de Phone Number [facility] CLIA# [id number] [address] [place] [address] * (ABNORMAL) POC GLUCOSE (04/24/2008 11:30 AM CDT) GLUCOSE POC 128(H) 60 - 100 mg/dL [facility] Venous blood specimen (specimen) 04/24/2008 11:30 AM CDT 04/24/2008 11:40 AM CDT us Abisai Perez MD POINT OF CARE TESTING Final Resu lt Performing Organization Address [facility] de Phone Number [facility] CLIA# [id number] [address] [place] [address] * (ABNORMAL) POC GLUCOSE (04/24/2008 5:37 AM CDT) GLUCOSE POC 123(H) 60 - 100 mg/dL [facility] Venous blood specimen (specimen) 04/24/2008 5:37 AM CDT 04/24/2008 11:58 AM CDT us Abisai Perez MD POINT OF CARE TESTING Final Resu lt Performing Organization Address [facility] de Phone Number [facility] CLIA# [id number] [address] [place] [address] * (ABNORMAL) HEMOGLOBIN A1C (04/24/2008 2:08 AM CDT) HEMOGLOBIN A1C 6.1(H) 4.0 - 6.0 %A1C [facility] Blood specimen (specimen) 04/24/2008 2:08 AM CDT 04/24/2008 2:45 AM CDT us Octavio Maradiaga MD CHEMISTRY ORDERABLES Final Re sult Performing Organization Address [facility] de Phone Number [facility] CLIA# [id number] [address] [place] [address] * (ABNORMAL) PROTIME-INR (04/24/2008 2:08 AM CDT) PROTIME 16.3(H) 12.8 - 15.8 Secs [facility] [facility] Comment:ansiAs of 09/09/2007 note change in normal range. INR 1.2 [facility] Comment: Expected Values for INR: DVT/PE Goal INR 2.5; range 2.0 - 3.0 Valve Replacement Tissue Goal INR 2.5; range 2.0 - 3.0 Mechanical Goal INR 3.0; range 2.5 - 3.5 POST-CA Goal INR 2.5; range 2.0 - 3.0 or Goal 3.0; range 2.5 - 3.5 Atrial Fibrillation Goal INR 2.5; range 2.0 - 3.0 Ischemic Stroke Goal INR 2.5; range 2.0 - 3.0 For additional information see Guidelines for Anticoagulation available from the pharmacy Emilia Boateng [phone] Blood specimen (specimen) 04/24/2008 2:08 AM CDT 04/24/2008 2:45 AM CDT us Octavio Maradiaga MD HEMATOLOGY ORDERABLES Final R esult [facility] CLIA# [id number] [address] [place] [address] * LIPID PANEL (04/24/2008 2:08 AM CDT) CHOLESTEROL 140 0 - 200 mg/dL [facility] Comment: On 01/16/2008 [facility] changed the cholesterol reference range to 0-200 mg/dl. This is the recommendation of the National Cholesterol Education Program (NCEP-ATPIII). LDL CALCULATED 85 0 - 100 mg/dL [facility] Comment: On 01/16/2008 [facility] changed the LDL reference range to 0- 100 mg/dl. This is the recommendation of the National Cholesterol Education Program (NCEP-ATPIII). HDL 40 40 - 60 mg/dL [facility] CALCULATED TOTAL CHOLESTEROL TO HDL RATIO 3.50 3.43 - 4.97 [facility] TRIGLYCERIDE 75 0 - 150 mg/dL [facility] Comment: On 01/16/2008, [facility] changed the triglyceride reference range to 0-150 mg/dl. This is the recommendation of the National Cholesterol Education Program (NCEP-ATPIII). Blood specimen (specimen) 04/24/2008 2:08 AM CDT 04/24/2008 2:45 AM CDT us Octavio Maradiaga MD CHEMISTRY ORDERABLES Final Re sult [facility] CLIA# [id number] [address] [place] [address] * (ABNORMAL) COMPREHENSIVE METABOLIC PANEL (04/24/2008 2:08 AM CDT) TOTAL PROTEIN 7.1 6.3 - 8.2 g/dL [facility] SODIUM 133(L) 136 - 145 mEq/L [facility] BILIRUBIN TOTAL 0.6 0.3 - 1.2 mg/dL [facility] BUN 18 9 - 20 mg/dL [facility] CO2 22 22 - 32 mmol/l [facility] ANION GAP 13 9 - 20 mEq/L [facility] AST 23 8 - 33 U/L [facility] POTASSIUM 4.2 3.5 - 5.0 mEq/L [facility] GLOBULIN (CALC) 3.1 2.4 - 3.9 g/dL [facility] ALBUMIN 4.0 3.5 - 5.0 g/dL [facility] CREATININE 1.2 0.7 - 1.5 mg/dL [facility] ALT 12 4 - 36 IU/L [facility] CALCIUM 9.3 8.4 - 10.5 mg/dL [facility] OSMOLALITY, CALCULATED 278 275 - 295 mOsm/Kg [facility] GLUCOSE 121(H) 70 - 110 mg/dL [facility] ALKALINE PHOSPHATASE 67 25 - 100 U/L [facility] CHLORIDE 102 95 - 110 mEq/L [facility] ALBUMIN/GLOBULIN RATIO 1.3 1.0 - 2.3 [facility] Blood specimen (specimen) 04/24/2008 2:08 AM CDT 04/24/2008 2:45 AM CDT us Octavio Maradiaga MD CHEMISTRY ORDERABLES Final Re sult [facility] CLIA# [id number] [address] [place] [address] * (ABNORMAL) CBC WITH DIFFERENTIAL (04/24/2008 2:08 AM CDT) HEMATOCRIT 31.8(L) 41.0 - 53.0 % [facility] EOSINOPHILS 0.1 0.0 - 7.0 % [facility] PLATELETS 369 140 - 440 K/ul [facility] EOSINOPHIL ABSOLUTE 0.0 0.0 - 0.7 K/ul [facility] RBC 3.55(L) 4.60 - 6.20 Mil/ul [facility] LYMPHOCYTES 6.5(L) 24.0 - 44.0 % [facility] MCHC 33.6 30.0 - 35.0 g/dL [facility] LYMPHOCYTE ABSOLUTE 0.9(L) 1.2 - 4.0 K/ul [facility] MCV 89.6 84.0 - 103.0 Fl [facility] MPV 9.0 8.9 - 12.8 Fl [facility] BASOPHILS ABSOLUTE 0.0 0.0 - 0.2 K/ul [facility] BASOPHILS 0.2 0.0 - 1.0 % [facility] HEMOGLOBIN 10.7(L) 14.0 - 18.0 g/dL [facility] RDW 13.9 11.0 - 14.5 % [facility] MONOCYTE ABSOLUTE 1.3(H) 0.1 - 0.6 K/ul [facility] MONOCYTES 9.0 2.0 - 10.0 % [facility] WBC 14.5(H) 4.8 - 10.8 K/ul [facility] MCH 30.1 27.0 - 34.0 pg [facility] NEUTROPHIL ABSOLUTE 12.2(H) 2.0 - 8.0 K/ul [facility] NEUTROPHILS 84.2(H) 42.2 - 75.2 % [facility] Blood specimen (specimen) 04/24/2008 2:08 AM CDT 04/24/2008 2:45 AM CDT us Octavio Maradiaga MD HEMATOLOGY ORDERABLES Final R esult Performing Organization Address City/[facility] Co de Phone Number [facility] CLIA# [id number] [facility] [place] [address] * (ABNORMAL) POC GLUCOSE (04/23/2008 11:43 PM CDT) [facility] Signature GLUCOSE POC 106(H) 60 - 100 mg/dL [facility] Venous blood specimen (specimen) 04/23/2008 11:43 PM CDT 04/24/2008 11:58 AM CDT us Abisai Perez MD POINT OF CARE TESTING Final Resu lt Performing Organization Address [facility] de Phone Number [facility] CLIA# [id number] [address] [place] [id number] * XR CHEST PA AND LATERAL (04/23/2008 10:23 PM CDT) Anatomical Region Laterality Modality Chest Other 04/23/2008 10:2 3 PM CDT Narrative 04/27/2008 4:06 PM CDT Exam: Chest - PA and Lateral Date/Time of Exam: Apr 23, 2008 10:23:43 PM History: Pulmonary embolus. Comparisons: 11/16/2007 at 0734. Findings: Heart size appears within normal limits. Aorta is tortuous. There has been interval development of a left lower lobe consolidation most consistent with pneumonia accompanied by small to moderate left pleural effusion. Right lung is clear. No evidence for pneumothorax. Mild degenerative changes of the thoracic spine are noted. Impressions: 1. Left lower lobe consolidation most consistent with pneumonia with accompanying small to moderate left pleural effusion. - Dictated By: Daniel Reid M.D., Ph.D. Electronically Signed By: Daniel Reid M.D., Ph.D. Date Signed: 04/27/08 SDM Procedure Note Daniel Reid - 04/27/2008 Exam: Chest - PA and Lateral Date/Time of Exam: Apr 23, 2008 10:23:43 PM History: Pulmonary embolus. Comparisons: 11/16/2007 at 0734. Findings: Heart size appears within normal limits. Aorta is tortuous.There has been interval development of a left lower lobe consolidation most consistent with pneumoniaaccompanied by small to moderate left pleural effusion. Right lung is clear. No evidence for pneumothorax. Milddegenerative changes of the thoracic spine are noted. Impressions: 1. Left lower lobe consolidation most consistent with pneumonia withaccompanying small to moderate left pleural effusion. - Dictated By: Daniel Reid M.D., Ph.D. Electronically Signed By: Daniel Reid M.D., Ph.D. 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 Personal history of tobacco use, presenting hazards to health Hypertrophy of prostate with urinary obstruction and other lower urinary tract symptoms (LUTS) Other abnormal glucose documented in this encounter Additional Health Concerns Infection Onset Date Last Indicated Resolved Time R/O COVID-19 2020 2020 06/08/2020 12:3 0 AM CDT COVID-19 2020 2020 07/06/2020 8:09 PM CDT documented as of this encounter Care Teams Wreath Machine Operator Relationship Specialty Start Date End Date Dulce Maria Alonzo FNP [address] [place] [address] PCP - General Nurse Practitioner Family 08/01/20 documented as of this encounter
--- OUTSIDE RECORDS SUMMARY | 2025-04-30 13:32 | XMS_ITS | Encounter Summary ---
Author Organization [facility] Address [address] [place] [address] Care Team Providers Care Laboratory Manager Name Role Phone Dulce Maria Alonzo Primary Care Provider Encounter Details Date Type Department Care Team (Latest Contact Info) Description 09/18/2004 Outpatient Historical [facility] [place] [address] [facility] [address] [place] [phone] Dulce Maria Alonzo FNP [address] [place] [address] SCREENING MAL NEOP-PROSTATE (Primary Dx); SCREENING MAL NEOP-RECTUM Social History Tobacco Use Types Packs/Day Years Used Date Smoking Tobacco: Never Assessed Sex and Gender Information Value Date Recorded Sex Assigned at Not on file 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 Gender Identity Not on file Sexual Orientation Not on file documented as of this encounter Plan of Treatment Not on file documented as of this encounter Visit Diagnoses Diagnosis Special screening for malignant neoplasm of prostate- Primary Screening for malignant neoplasm of the rectum documented in this encounter Additional Health Concerns Infection Onset Date Last Indicated Resolved Time R/O COVID-19 2020 2020 06/08/2020 12:3 0 AM CDT COVID-19 2020 2020 07/06/2020 8:09 PM CDT documented as of this encounter Care Teams Laboratory Manager Relationship Specialty Start Date End Date Dulce Maria Alonzo FNP [address] [place] [address] PCP - General Nurse Practitioner Family 08/01/20 documented as of this encounter
--- OUTSIDE RECORDS SUMMARY | 2025-04-30 13:32 | XMS_ITS | Encounter Summary ---
Author Organization [facility] Address [address] [place] [address] Care Team Providers Care Multifocal Button Grinder Name Role Phone Dulce Maria Alonzo Primary Care Provider Encounter Details Date Type Department Care Team (Late st Contact Info) Description 03/20/2008 Outpatient Historical [facility] Card[facility] Rehabilitation [address] 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
--- OUTSIDE RECORDS SUMMARY | 2025-04-30 13:32 | XMS_ITS | Encounter Summary ---
Author Organization [facility] Address [address] [place] [address] Care Team Providers Care Cast Shell Grinder Name Role Phone Dulce Maria Alonzo Primary Care Provider Encounter Details Date Type Department Care Team (Late st Contact Info) Description 08/16/2008 Outpatient Historical [facility] Other, S[facility] NO ADDRESS ON FILE Social History Tobacco Use Types Packs/Day Years Used Date Smoking Tobacco: Never Alcohol Use Standard Drinks/Week Comments No 0 (1 standard drink = 0.6 oz pur e alcohol) Sex and Gender Information Value Date Recorded Sex Assigned at Not on file 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
--- OUTSIDE RECORDS SUMMARY | 2025-04-30 13:32 | XMS_ITS | Encounter Summary ---
Author Organization [facility] Address [address] [place] [address] Care Team Providers Care Lotteries Agent Name Role Phone Dulce Maria Alonzo Primary Care Provider Encounter Details Date Type Department Care Team (Latest Contact Info) Description 08/15/2008 Outpatient Historical [facility] Carmella Santiago MD NO ADDRESS ON FILE Unspecified Peripheral Vascular Disease; Encounter for Long-Term (Current) Use of Anticoagulants Social History Tobacco Use Types Packs/Day Years Used Date Smoking Tobacco: Never Alcohol Use Standard Drinks/Week Comments No 0 (1 standard drink = 0.6 oz pur e alcohol) Sex and Gender Information Value Date Recorded Sex Assigned at Not on file 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 Gender Identity Not on file Sexual Orientation Not on file documented as of this encounter Plan of Treatment Not on file documented as of this encounter Visit Diagnoses Diagnosis Peripheral vascular disease, unspecified exterminator helper termite (current) use of anticoagulants Long-term (current) use of anticoagulants documented in this encounter Additional Health Concerns Infection Onset Date Last Indicated Resolved Time R/O COVID-19 2020 2020 06/08/2020 12:3 0 AM CDT COVID-19 2020 2020 07/06/2020 8:09 PM CDT documented as of this encounter Care Teams Lotteries Agent Relationship Specialty Start Date End Date Dulce Maria Alonzo FNP [address] [place] [address] PCP - General Nurse Practitioner Family 08/01/20 documented as of this encounter
--- OUTSIDE RECORDS SUMMARY | 2025-04-30 13:32 | XMS_ITS | Encounter Summary ---
Author Organization [facility] Address [address] [place] [address] Care Team Providers Care Video Production Assistant Name Role Phone Dulce Maria Alonzo Primary Care Provider [phone] Encounter Details Date Type Department Care Team (Latest Contact Info) Description 12/18/2004 Outpatient Historical [facility] Medicine [place] [address] [facility] [address] [place] [phone] Dulce Maria Alonzo FNP [address] [place] [address] Pure hypercholesterolem (Primary Dx) Social History Tobacco Use Types Packs/Day Years Used Date Smoking Tobacco: Never Assessed Sex and Gender Information Value Date Recorded Sex Assigned at Not on file Legal 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 Male 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 AUTH SPECIALIST Gender Identity Not on file Sexual Orientation Not on file documented as of this encounter Plan of Treatment Not on file documented as of this encounter Visit Diagnoses Diagnosis Pure hypercholesterolem- Primary Pure hypercholesterolemia documented in this encounter Additional Health Concerns Infection Onset Date Last Indicated Resolved Time R/O COVID-19 2020 2020 06/08/2020 12:3 0 AM CDT COVID-19 2020 2020 07/06/2020 8:09 PM CDT documented as of this encounter Care Teams Video Production Assistant Relationship Specialty Start Date End Date Dulce Maria Alonzo FNP [address] [place] [phone] PCP - General Nurse Practitioner Family 08/01/20 documented as of this encounter
--- OUTSIDE RECORDS SUMMARY | 2025-04-30 13:32 | XMS_ITS | Encounter Summary ---
Author Organization [facility] Address [address] [place] [address] Care Team Providers Care Concert Or Lecture Hall Manager Name Role Phone Dulce Maria Alonzo Primary Care Provider Encounter Details Date Type Department Care Team (Late st Contact Info) Description 07/27/2008 Outpatient Historical [facility] Carmella Santiago MD NO ADDRESS ON FILE Social History Tobacco Use Types Packs/Day Years Used Date Smoking Tobacco: Never Alcohol Use Standard Drinks/Week Comments No 0 (1 standard drink = 0.6 oz pur e alcohol) Sex and Gender Information Value Date Recorded Sex Assigned at Not on file 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
--- OUTSIDE RECORDS SUMMARY | 2025-04-30 13:32 | XMS_ITS | Encounter Summary ---
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) Social History Tobacco Use Types Packs/Day Years Used Date Smoking Tobacco: Never Assessed Sex and Gender Information Value Date Recorded Sex Assigned at Not on file 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 Gender Identity Not on file Sexual Orientation Not on file documented as of this encounter Plan of Treatment Not on file documented as of this encounter Visit Diagnoses Diagnosis 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
--- OUTSIDE RECORDS SUMMARY | 2025-04-30 13:32 | XMS_ITS | Encounter Summary ---
Author Organization [facility] Address [address] [facility] [place] [address] Care Team Providers Care Social Sciences Professor Name Role Phone Dulce Maria Alonzo DE[employer] CODER Primary Care Provider Encounter Details Date Type Department Care Team (Late st Contact Info) Description 03/28/2008 Outpatient Historical HIS IN BED Carmella Santiago MD NO ADDRESS ON FILE Social History Tobacco Use Types Packs/Day Years Used Date Smoking Tobacco: Never Alcohol Use Standard Drinks/Week Comments No 0 (1 standard drink = 0.6 oz pur e alcohol) Sex and Gender Information Value Date Recorded Sex Assigned at Not on file 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 Gender Identity Not on file Sexual Orientation Not on file documented as of this encounter Plan of Treatment Not on file documented as of this encounter Procedures Procedure Name Priority Date/Time Associated Diagnosis Comments CBC WITH DIFFERENTIAL Routine 04/06/2008 4:34 AM CDT BASIC METABOLIC PANEL Routine 04/06/2008 4:34 AM CDT POC GLUCOSE Routine 04/05/2008 9:38 AM CDT POC GLUCOSE Routine 04/05/2008 5:11 AM CDT CBC WITH DIFFERENTIAL Routine 04/05/2008 3:12 AM CDT BASIC METABOLIC PANEL Routine 04/05/2008 3:12 AM CDT POC GLUCOSE Routine 04/05/2008 3:08 AM CDT POC GLUCOSE Routine 04/05/2008 12:57 AM CDT POC GLUCOSE Routine 04/05/2008 12:08 AM CDT POC GLUCOSE Routine 04/04/2008 11:09 PM CDT MRSA CULTURE Routine 04/04/2008 8:59 PM CDT POC GLUCOSE Routine 04/04/2008 8:46 PM CDT POC GLUCOSE Routine 04/04/2008 5:41 PM CDT CBC WITH DIFFERENTIAL Stat 04/04/2008 5:37 PM CDT BASIC METABOLIC PANEL Stat 04/04/2008 5:37 PM CDT POTASSIUM LEVEL Stat 04/04/2008 12:00 PM CDT PT AND APTT Stat 04/04/2008 9:48 AM CDT CBC WITH DIFFERENTIAL Stat 04/04/2008 9:48 AM CDT BASIC METABOLIC PANEL Stat 04/04/2008 9:48 AM CDT PATHOLOGY Routine 04/04/2008 8:43 AM CDT documented in this encounter Results * (ABNORMAL) BASIC METABOLIC PANEL (04/06/2008 4:34 AM CDT) CHLORIDE 99 95 - 110 mEq/L [facility] ANION GAP 13 9 - 20 mEq/L [facility] SODIUM 131(L) 136 - 145 mEq/L [facility] BUN 13 9 - 20 mg/dL [facility] CO2 23 22 - 32 mmol/l [facility] POTASSIUM 3.7 3.5 - 5.0 mEq/L [facility] OSMOLALITY, CALCULATED 272(L) 275 - 295 mOsm/Kg [facility] CREATININE 0.9 0.7 - 1.5 mg/dL [facility] CALCIUM 8.9 8.4 - 10.5 mg/dL [facility] GLUCOSE 125(H) 70 - 110 mg/dL [facility] Blood specimen (specimen) 04/06/2008 4:34 AM CDT 04/06/2008 5:11 AM CDT us Carmella Santiago MD CHEMISTRY ORDERABLES F inal Result [facility] CLIA# [id number] [address] [place] [address] * (ABNORMAL) CBC WITH DIFFERENTIAL (04/06/2008 4:34 AM CDT) LYMPHOCYTES 19.3(L) 24.0 - 44.0 % [facility] MCHC 33.9 30.0 - 35.0 g/dL [facility] LYMPHOCYTE ABSOLUTE 1.6 1.2 - 4.0 K/ul [facility] MCV 89.5 84.0 - 103.0 Fl [facility] MPV 9.5 8.9 - 12.8 Fl [facility] BASOPHILS ABSOLUTE 0.0 0.0 - 0.2 K/ul [facility] BASOPHILS 0.5 0.0 - 1.0 % [facility] HEMOGLOBIN 12.4(L) 14.0 - 18.0 g/dL [facility] RDW 14.3 11.0 - 14.5 % [facility] MONOCYTE ABSOLUTE 0.8(H) 0.1 - 0.6 K/ul [facility] MONOCYTES 9.9 2.0 - 10.0 % [facility] WBC 8.5 4.8 - 10.8 K/ul [facility] MCH 30.3 27.0 - 34.0 pg [facility] NEUTROPHIL ABSOLUTE 5.9 2.0 - 8.0 K/ul [facility] NEUTROPHILS 69.1 42.2 - 75.2 % [facility] HEMATOCRIT 36.6(L) 41.0 - 53.0 % [facility] EOSINOPHILS 1.2 0.0 - 7.0 % [facility] PLATELETS 179 140 - 440 K/ul [facility] EOSINOPHIL ABSOLUTE 0.1 0.0 - 0.7 K/ul [facility] RBC 4.09(L) 4.60 - 6.20 Mil/ul [facility] Blood specimen (specimen) 04/06/2008 4:34 AM CDT 04/06/2008 5:11 AM CDT Carmella Santiago MD HEMATOLOGY ORDERABLES Final Result Performing Organization Address [facility] de Phone Number [facility] CLIA# [id number] [address] [place] [address] * (ABNORMAL) POC GLUCOSE (04/05/2008 9:38 AM CDT) GLUCOSE POC 141(H) 60 - 100 mg/dL [facility] Venous blood specimen (specimen) 04/05/2008 9:38 AM CDT 04/06/2008 12:56 PM CDT Carmella Santiago MD POINT OF CARE TESTING Final Result Performing Organization Address [facility] de Phone Number [facility] CLIA# [id number] [address] [place] [address] * (ABNORMAL) POC GLUCOSE (04/05/2008 5:11 AM CDT) GLUCOSE POC 110(H) 60 - 100 mg/dL [facility] Venous blood specimen (specimen) 04/05/2008 5:11 AM CDT 04/05/2008 7:28 AM CDT Carmella Santiago MD POINT OF CARE TESTING Final Result Performing Organization Address [facility] Co de Phone Number [facility] CLIA# [id number] [facility] [place] [address] * (ABNORMAL) BASIC METABOLIC PANEL (04/05/2008 3:12 AM CDT) [facility] CREATININE 1.1 0.7 - 1.5 mg/dL [facility] CO2 25 22 - 32 mmol/l [facility] OSMOLALITY, CALCULATED 287 275 - 295 mOsm/Kg [facility] POTASSIUM 4.2 3.5 - 5.0 mEq/L [facility] GLUCOSE 133(H) 70 - 110 mg/dL [facility] CALCIUM 8.7 8.4 - 10.5 mg/dL [facility] CHLORIDE 107 95 - 110 mEq/L [facility] BUN 14 9 - 20 mg/dL [facility] SODIUM 138 136 - 145 mEq/L [facility] ANION GAP 10 9 - 20 mEq/L [facility] Blood specimen (specimen) 04/05/2008 3:12 AM CDT 04/05/2008 3:19 AM CDT us Carmella Santiago MD CHEMISTRY ORDERABLES E dited [facility] CLIA# [id number] [facility] [place] [address] * (ABNORMAL) CBC WITH DIFFERENTIAL (04/05/2008 3:12 AM CDT) [facility] NEUTROPHILS 78.9(H) 42.2 - 75.2 % [facility] MCH 31.1 27.0 - 34.0 pg [facility] NEUTROPHIL ABSOLUTE 8.8(H) 2.0 - 8.0 K/ul [facility] HEMATOCRIT 40.3(L) 41.0 - 53.0 % [facility] PLATELETS 216 140 - 440 K/ul [facility] EOSINOPHIL ABSOLUTE 0.1 0.0 - 0.7 K/ul [facility] EOSINOPHILS 0.7 0.0 - 7.0 % [facility] RBC 4.44(L) 4.60 - 6.20 Mil/ul [facility] MCHC 34.2 30.0 - 35.0 g/dL [facility] LYMPHOCYTE ABSOLUTE 1.2 1.2 - 4.0 K/ul [facility] LYMPHOCYTES 11.0(L) 24.0 - 44.0 % [facility] MCV 90.8 84.0 - 103.0 Fl [facility] BASOPHILS 0.4 0.0 - 1.0 % [facility] MPV 9.5 8.9 - 12.8 Fl [facility] BASOPHILS ABSOLUTE 0.0 0.0 - 0.2 K/ul [facility] HEMOGLOBIN 13.8(L) 14.0 - 18.0 g/dL [facility] MONOCYTES 9.0 2.0 - 10.0 % [facility] RDW 14.7(H) 11.0 - 14.5 % [facility] MONOCYTE ABSOLUTE 1.0(H) 0.1 - 0.6 K/ul [facility] WBC 11.2(H) 4.8 - 10.8 K/ul [facility] Blood specimen (specimen) 04/05/2008 3:12 AM CDT 04/05/2008 3:19 AM CDT Carmella Santiago MD HEMATOLOGY ORDERABLES Final Result [facility] CLIA# [id number] [address] [place] [address] * (ABNORMAL) POC GLUCOSE (04/05/2008 3:08 AM CDT) GLUCOSE POC 141(H) 60 - 100 mg/dL [facility] Venous blood specimen (specimen) 04/05/2008 3:08 AM CDT 04/05/2008 12:27 PM CDT Carmella Santiago MD POINT OF CARE TESTING Final Result Performing Organization Address [facility] Co de Phone Number [facility] CLIA# [id number] [address] [place] [address] * (ABNORMAL) POC GLUCOSE (04/05/2008 12:57 AM CDT) GLUCOSE POC 126(H) 60 - 100 mg/dL [facility] Venous blood specimen (specimen) 04/05/2008 12:57 AM CDT 04/05/2008 12:27 PM CDT Carmella Santiago MD POINT OF CARE TESTING Final Result Performing Organization Address [facility] de Phone Number [facility] CLIA# [id number] [address] [place] [address] * (ABNORMAL) POC GLUCOSE (04/05/2008 12:08 AM CDT) GLUCOSE POC 130(H) 60 - 100 mg/dL [facility] Venous blood specimen (specimen) 04/05/2008 12:08 AM CDT 04/05/2008 12:27 PM CDT Carmella Santiago MD POINT OF CARE TESTING Final Result Performing Organization Address [facility] Co de Phone Number [facility] CLIA# [id number] [address] [place] [address] * (ABNORMAL) POC GLUCOSE (04/04/2008 11:09 PM CDT) GLUCOSE POC 124(H) 60 - 100 mg/dL [facility] Venous blood specimen (specimen) 04/04/2008 11:09 PM CDT 04/05/2008 9:11 AM CDT Carmella Santiago MD POINT OF CARE TESTING Final Result Performing Organization Address [facility]/ZIP Co de Phone Number [facility] CLIA# [id number] [address] [place] [address] * MRSA CULTURE (04/04/2008 8:59 PM CDT) FINAL REPORT Culture screen for MRSA negative INTERFACE SYSTEM 04/04/2008 8:59 PM CDT 04/04/2008 8:59 PM CDT us Carmella Santiago MD MICROBIOLOGY - GENERAL ORDERABLES Final Result Performing Organization Address [facility] Co de Phone Number INTERFACE SYSTEM Refer to clinic/hospital department * (ABNORMAL) POC GLUCOSE (04/04/2008 8:46 PM CDT) GLUCOSE POC 142(H) 60 - 100 mg/dL [facility] Venous blood specimen (specimen) 04/04/2008 8:46 PM CDT 04/05/2008 12:27 PM CDT us Carmella Santiago MD POINT OF CARE TESTING Final Result Performing Organization Address [facility] Co de Phone Number [facility] CLIA# [id number] [address] [place] [address] * POC GLUCOSE (04/04/2008 5:41 PM CDT) GLUCOSE POC 100 60 - 100 mg/dL [facility] Venous blood specimen (specimen) 04/04/2008 5:41 PM CDT 04/05/2008 2:31 AM CDT us Carmella Santiago MD POINT OF CARE TESTING Final Result Performing Organization Address [facility] Co de Phone Number [facility] CLIA# [id number] [address] [place] [address] * BASIC METABOLIC PANEL (04/04/2008 5:37 PM CDT) CHLORIDE 107 95 - 110 mEq/L [facility] ANION GAP 12 9 - 20 mEq/L [facility] SODIUM 141 136 - 145 mEq/L [facility] BUN 14 9 - 20 mg/dL [facility] CO2 26 22 - 32 mmol/l [facility] POTASSIUM 4.2 3.5 - 5.0 mEq/L [facility] OSMOLALITY, CALCULATED 291 275 - 295 mOsm/Kg [facility] CREATININE 1.1 0.7 - 1.5 mg/dL [facility] CALCIUM 8.8 8.4 - 10.5 mg/dL [facility] GLUCOSE 102 70 - 110 mg/dL [facility] Blood specimen (specimen) 04/04/2008 5:37 PM CDT 04/04/2008 5:44 PM CDT Carmella Santiago MD CHEMISTRY ORDERABLES F inal Result [facility] CLIA# [id number] [facility] [place] [address] * (ABNORMAL) CBC WITH DIFFERENTIAL (04/04/2008 5:37 PM CDT) Pathologist [facility] MCV 90.3 84.0 - 103.0 Fl [facility] BASOPHILS 0.4 0.0 - 1.0 % [facility] MPV 9.1 8.9 - 12.8 Fl [facility] BASOPHILS ABSOLUTE 0.1 0.0 - 0.2 K/ul [facility] HEMOGLOBIN 14.5 14.0 - 18.0 g/dL [facility] MONOCYTES 6.7 2.0 - 10.0 % [facility] RDW 14.4 11.0 - 14.5 % [facility] MONOCYTE ABSOLUTE 0.8(H) 0.1 - 0.6 K/ul [facility] WBC 11.6(H) 4.8 - 10.8 K/ul [facility] NEUTROPHILS 77.8(H) 42.2 - 75.2 % [facility] MCH 30.5 27.0 - 34.0 pg [facility] NEUTROPHIL ABSOLUTE 9.0(H) 2.0 - 8.0 K/ul [facility] HEMATOCRIT 42.9 41.0 - 53.0 % [facility] PLATELETS 207 140 - 440 K/ul [facility] EOSINOPHIL ABSOLUTE 0.2 0.0 - 0.7 K/ul [facility] EOSINOPHILS 1.5 0.0 - 7.0 % [facility] RBC 4.75 4.60 - 6.20 Mil/ul [facility] MCHC 33.8 30.0 - 35.0 g/dL [facility] LYMPHOCYTE ABSOLUTE 1.6 1.2 - 4.0 K/ul [facility] LYMPHOCYTES 13.6(L) 24.0 - 44.0 % [facility] Blood specimen (specimen) 04/04/2008 5:37 PM CDT 04/04/2008 5:44 PM CDT Carmella Santiago MD HEMATOLOGY ORDERABLES Final Result Performing Organization Address [facility]/ZIP Co de Phone Number [facility] CLIA# [id number] [address] [place] [address] * POTASSIUM LEVEL (04/04/2008 12:00 PM CDT) POTASSIUM 3.6 3.5 - 5.0 mEq/L [facility] Blood specimen (specimen) 04/04/2008 12:00 PM CDT 04/04/2008 12:04 PM CDT Carmella Santiago MD CHEMISTRY ORDERABLES F inal Result [facility] CLIA# [id number] [address] [place] [address] * (ABNORMAL) CBC WITH DIFFERENTIAL (04/04/2008 9:48 AM CDT) LYMPHOCYTES 29.4 24.0 - 44.0 % [facility] MCHC 33.9 30.0 - 35.0 g/dL [facility] LYMPHOCYTE ABSOLUTE 2.2 1.2 - 4.0 K/ul [facility] WBC 7.4 4.8 - 10.8 K/ul [facility] MPV 9.3 8.9 - 12.8 Fl [facility] BASOPHILS ABSOLUTE 0.1 0.0 - 0.2 K/ul [facility] BASOPHILS 1.6(H) 0.0 - 1.0 % [facility] HEMATOCRIT 47.2 41.0 - 53.0 % [facility] RDW 14.4 11.0 - 14.5 % [facility] MONOCYTE ABSOLUTE 0.6 0.1 - 0.6 K/ul [facility] MONOCYTES 7.9 2.0 - 10.0 % [facility] MCV 90.6 84.0 - 103.0 Fl [facility] RBC 5.21 4.60 - 6.20 Mil/ul [facility] MCH 30.7 27.0 - 34.0 pg [facility] NEUTROPHIL ABSOLUTE 4.2 2.0 - 8.0 K/ul [facility] NEUTROPHILS 56.8 42.2 - 75.2 % [facility] EOSINOPHILS 4.3 0.0 - 7.0 % [facility] PLATELETS 227 140 - 440 K/ul [facility] EOSINOPHIL ABSOLUTE 0.3 0.0 - 0.7 K/ul [facility] HEMOGLOBIN 16.0 14.0 - 18.0 g/dL [facility] Blood specimen (specimen) 04/04/2008 9:48 AM CDT 04/04/2008 9:56 AM CDT us Carmella Santiago MD HEMATOLOGY ORDERABLES Final Result Performing Organization Address [facility] Co de Phone Number [facility] CLIA# [id number] [address] [place] [address] * PT AND APTT (04/04/2008 9:48 AM CDT) PTT 26.9 22.5 - 36.5 Secs [facility] Comment: Therapeutic Range: Hi-level PE/DVT heparin protocol 80.1 -95.0 sec Lo-level PE/DVT heparin protocol 67.1 - 80.0 sec Cardiac Heparin Protocol 67.1 - 85.0 sec Neuro Heparin Protocol 67.1 - 80.0 sec As of 12/01/2007 note change in APTT Normal Range. INR 0.9 [facility] Comment: Expected Values for INR: DVT/PE [...] Anticoagulation available from the pharmacy [facility] Boat[facility]. [phone] PROTIME 13.4 12.8 - 15.8 Secs [facility] Comment:As of 2007 not e change in normal range. Blood specimen (specimen) 04/04/2008 9:48 AM CDT 04/04/2008 9:56 AM CDT Carmella Santiago MD HEMATOLOGY ORDERABLES Edited Performing Organization Address [facility] Co de Phone Number [facility] CLIA# [id number] [address] [place] [address] * (ABNORMAL) BASIC METABOLIC PANEL (04/04/2008 9:48 AM CDT) CREATININE 1.1 0.7 - 1.5 mg/dL [facility] CALCIUM 10.2 8.4 - 10.5 mg/dL [facility] GLUCOSE 109 70 - 110 mg/dL [facility] CHLORIDE 107 95 - 110 mEq/L [facility] ANION GAP 12 9 - 20 mEq/L [facility] SODIUM 141 136 - 145 mEq/L [facility] BUN 14 9 - 20 mg/dL [facility] CO2 28 22 - 32 mmol/l [facility] POTASSIUM 5.6(H) 3.5 - 5.0 mEq/L [facility] OSMOLALITY, CALCULATED 294 275 - 295 mOsm/Kg [facility] Blood specimen (specimen) 04/04/2008 9:48 AM CDT 04/04/2008 9:56 AM CDT us Carmella Santiago MD CHEMISTRY ORDERABLES F inal Result Performing Organization Address City/State/[facility] Co de Phone Number [facility] CLIA# [id number] [address] [place] [phone] * PATHOLOGY (04/04/2008 8:43 AM CDT) PATHOLOGY/CYT OLOGY REPORT [facility] Anatomic Pathology Dept [address] [place] [phone] Patient: MAURO ESPINO Accn No: [id number] Collected: 04/04/2008 8:43:00 AM SURGICAL PATHOLOGY FINAL REPORT Diagnosis A. 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 Иван Brooks M.D. (Electronically signed by) Verified: 04/09/08 SEC/SEC Clinical Information Pain with ischemia. Specimen Source AAmputation, RIGHT BELOW KNEE Microscopic Description Microscopic examination was performed. Gross Description Part A. Received fresh in a container labelled Srinivas is a right below-the- knee amputation with the heel to resection margin measuring 17 cm. All five toes are present with yellowish, jagged discolored toenails. All five toes have a misshapened arthritic appearance. Two shallow ulcerations are identified with the first one on the medial aspect of the first toe and forefoot measuring 1 cm in diameter. The second is present on the distal plantar surface measuring 1.3 cm in diameter. On sectioning the vessels, a small amount of atherosclerosis is seen. Cassette Summary: A1 - resection margin A2 - sections of plantar and medial ulceration A3 - sections of blood vessels A4 - sections of distal first phalanx following decalcification. DLS/TKB INTERFACE SYSTEM 04/04/2008 8:43 AM CDT us Carmella Santiago MD PATHOLOGY/CYTOLOGY ORD ERABLES Final Result INTERFACE SYSTEM Refer to clinic/hospital department documented in this encounter Visit Diagnoses Not on filedocumented in this encounter Additional Health Concerns Infection Onset Date Last Indicated Resolved Time R/O COVID-19 2020 2020 06/08/2020 12:3 0 AM CDT COVID-19 2020 2020 07/06/2020 8:09 PM CDT documented as of this encounter Care Teams Social Sciences Professor Relationship Specialty Start Date End Date Dulce Maria Alonzo FNP [address] [place] [phone] PCP - General Nurse Practitioner Family 08/01/20 documented as of this encounter
--- OUTSIDE RECORDS SUMMARY | 2025-04-30 13:32 | XMS_ITS | Encounter Summary ---
Author Organization [facility] Address [address] [place] [address] Care Team Providers Care Heavy Duty Mechanic [employer] Name Role Phone Dulce Maria Alonzo Primary Care Provider [phone] Encounter Details Date Type Department Care Team (Late st Contact Info) Description 08/08/2008 Outpatient Historical [facility] Other, Sgf NO ADDRESS ON FILE Social History Tobacco Use Types Packs/Day Years Used Date Smoking Tobacco: Never Alcohol Use Standard Drinks/Week Comments No 0 (1 standard drink = 0.6 oz pur e alcohol) Sex and Gender Information Value Date Recorded Sex Assigned at Not on file 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
--- OUTSIDE RECORDS SUMMARY | 2025-04-30 13:32 | XMS_ITS | Encounter Summary ---
Author Organization [facility] Address [address] [place] [address] Care Team Providers Care Retail Sales Advisor Name Role Phone Dulce Maria Alonzo CUSTOMER SERVICE COORDINATOR Primary Care Provider [phone] Encounter Details Date Type Department Care Team (Latest Contact Info) Description 05/12/2008 Outpatient Historical [facility] Operating Room [address] [place] [address] Carmella Santiago MD NO ADDRESS ON FILE Unspecified Peripheral Vascular Disease; Personal History of Tobacco Use, Presenting Hazards to Health; Personal History of Venous Thrombosis and Embolism; Lower Limb Amputation, Below Knee (CMS/HCC) Social History Tobacco Use Types Packs/Day Years Used Date Smoking Tobacco: Never Alcohol Use Standard Drinks/Week Comments No 0 (1 standard drink = 0.6 oz pur e alcohol) Sex and Gender Information Value Date Recorded Sex Assigned at Not on file 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 Gender Identity Not on file Sexual Orientation Not on file documented as of this encounter Plan of Treatment Not on file documented as of this encounter Procedures Procedure Name Priority Date/Time Associated Diagnosis Comments CBC WITH DIFFERENTIAL Stat 05/22/2008 9:50 AM CDT PROTIME-INR Stat 05/22/2008 9:50 AM CDT BASIC METABOLIC PANEL Stat 05/22/2008 9:50 AM CDT documented in this encounter Results * (ABNORMAL) CBC WITH DIFFERENTIAL (05/22/2008 9:50 AM CDT) HEMATOCRIT 41.0 41.0 - 53.0 % [facility] EOSINOPHILS 3.8 0.0 - 7.0 % [facility] PLATELETS 179 140 - 440 K/ul [facility] EOSINOPHIL ABSOLUTE 0.3 0.0 - 0.7 K/ul [facility] RBC 4.65 4.60 - 6.20 Mil/ul [facility] LYMPHOCYTES 24.2 24.0 - 44.0 % [facility] MCHC 34.1 30.0 - 35.0 g/dL [facility] LYMPHOCYTE ABSOLUTE 1.6 1.2 - 4.0 K/ul [facility] MCV 88.2 84.0 - 103.0 Fl [facility] MPV 9.1 8.9 - 12.8 Fl [facility] BASOPHILS ABSOLUTE 0.0 0.0 - 0.2 K/ul [facility] BASOPHILS 0.6 0.0 - 1.0 % [facility] HEMOGLOBIN 14.0 14.0 - 18.0 g/dL [facility] RDW 14.9(H) 11.0 - 14.5 % [facility] MONOCYTE ABSOLUTE 0.6 0.1 - 0.6 K/ul [facility] MONOCYTES 8.9 2.0 - 10.0 % [facility] WBC 6.6 4.8 - 10.8 K/ul [facility] MCH 30.1 27.0 - 34.0 pg [facility] NEUTROPHIL ABSOLUTE 4.2 2.0 - 8.0 K/ul [facility] NEUTROPHILS 62.5 42.2 - 75.2 % [facility] Blood specimen (specimen) 05/22/2008 9:50 AM CDT 05/22/2008 9:55 AM CDT us Carmella Santiago MD HEMATOLOGY ORDERABLES Final Result INTERFACE SYSTEM Refer to clinic/hospital department [facility] CLIA# [id number] [address] [place] [address] * (ABNORMAL) PROTIME-INR (05/22/2008 9:50 AM CDT) PROTIME 24.6(H) 12.8 - 15.8 Secs [facility] Comment:As of 2007 not e change in normal range. INR 2.0 [facility] Comment: ansi Expected Values for INR: DVT/PE Goal INR 2.5; range 2.0 - 3.0 Valve Replacement Tissue Goal INR 2.5; range 2.0 - 3.0 Mechanical Goal INR 3.0; range 2.5 - 3.5 POST-MT Goal INR 2.5; range 2.0 - 3.0 or Goal 3.0; range 2.5 - 3.5 Atrial Fibrillation Goal INR 2.5; range 2.0 - 3.0 Ischemic Stroke Goal INR 2.5; range 2.0 - 3.0 For additional information see Guidelines for Anticoagulation available from the pharmacy Emilia Boateng [phone] Blood specimen (specimen) 05/22/2008 9:50 AM CDT 05/22/2008 9:55 AM CDT Carmella Santiago MD HEMATOLOGY ORDERABLES Final Result Performing Organization Address City/State/[facility] Co de Phone Number INTERFACE SYSTEM Refer to clinic/hospital department [facility] CLIA# [id number] [address] [place] [address] * (ABNORMAL) BASIC METABOLIC PANEL (05/22/2008 9:50 AM CDT) Pathologist [facility] BUN 7(L) 9 - 20 mg/dL [facility] CHLORIDE 109 95 - 110 mEq/L [facility] OSMOLALITY, CALCULATED 289 275 - 295 mOsm/Kg [facility] SODIUM 142 136 - 145 mEq/L [facility] CALCIUM 9.5 8.4 - 10.5 mg/dL [facility] CO2 26 22 - 32 mmol/l [facility] POTASSIUM 3.8 3.5 - 5.0 mEq/L [facility] ANION GAP 11 9 - 20 mEq/L [facility] CREATININE 0.9 0.7 - 1.5 mg/dL [facility] GLUCOSE 101 70 - 110 mg/dL [facility] Blood specimen (specimen) 05/22/2008 9:50 AM CDT 05/22/2008 9:55 AM CDT us Carmella Santiago MD CHEMISTRY ORDERABLES F inal Result INTERFACE SYSTEM Refer to clinic/hospital department [facility] CLIA# [id number] [address] [place] [address] documented in this encounter Visit Diagnoses Diagnosis Peripheral vascular disease, unspecified Personal history of tobacco use, presenting hazards to health Personal history of venous thrombosis and embolism Lower limb amputation, below knee documented in this encounter Additional Health Concerns Infection Onset Date Last Indicated Resolved Time R/O COVID-19 2020 2020 06/08/2020 12:3 0 AM CDT COVID-19 2020 2020 07/06/2020 8:09 PM CDT documented as of this encounter Care Teams Retail Sales Advisor Relationship Specialty Start Date End Date Dulce Maria Alonzo FNP [address] [place] [address] PCP - General Nurse Practitioner Family 08/01/20 documented as of this encounter
--- OUTSIDE RECORDS SUMMARY | 2025-04-30 13:32 | XMS_ITS | Encounter Summary ---
Author Organization [facility] Address [address] [place] [address] Care Team Providers Care Timing Adjuster Name Role Phone Dulce Maria Alonzo Primary Care Provider Encounter Details Date Type Department Care Team (Latest Contact Info) Description 01/27/2005 Outpatient Historical [facility] Medicine [place] [address] [facility] [address] [place] [address] Dulce Maria Alonzo FNP [address] [place] [address] [facility] ANTICOAG USE (Primary Dx) Social History Tobacco Use Types Packs/Day Years Used Date Smoking Tobacco: Never Assessed Sex and Gender Information Value Date Recorded Sex Assigned at Not on file 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 Gender Identity Not on file Sexual Orientation Not on file documented as of this encounter Plan of Treatment Not on file documented as of this encounter Visit Diagnoses Diagnosis [facility] (current) use of anticoagulants- Primary Long-term (current) use of anticoagulants documented in this encounter Additional Health Concerns Infection Onset Date Last Indicated Resolved Time R/O COVID-19 2020 2020 06/08/2020 12:3 0 AM CDT COVID-19 2020 2020 07/06/2020 8:09 PM CDT documented as of this encounter Care Teams Timing Adjuster Relationship Specialty Start Date End Date Dulce Maria Alonzo FNP [address] [place] [address] PCP - General Nurse Practitioner Family 08/01/20 documented as of this encounter
--- OUTSIDE RECORDS SUMMARY | 2025-04-30 13:32 | XMS_ITS | Encounter Summary ---
Author Organization [facility] Address [address] [place] [address] Care Team Providers Care Photoengraving Etcher Name Role Phone Dulce Maria Alonzo Primary Care Provider Encounter Details Date Type Department Care Team (Latest Contact Info) Description 02/12/2005 Outpatient Historical [facility] Medicine [place] [address] [facility] [address] [place] [address] Dulce Maria Alonzo FNP [address] [place] [address] [facility] ANTICOAG USE (Primary Dx); HYPERTENSION NOS Social History Tobacco Use Types Packs/Day Years Used Date Smoking Tobacco: Never Assessed Sex and Gender Information Value Date Recorded Sex Assigned at Not on file Legal 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 Gender Identity Not on file Sexual Orientation Not on file documented as of this encounter Plan of Treatment Not on file documented as of this encounter Visit Diagnoses Diagnosis ocean transportation intermediary (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
--- OUTSIDE RECORDS SUMMARY | 2025-04-30 13:33 | XMS_ITS | Encounter Summary ---
Author Organization [facility] Address [address] [place] [address] Care Team Providers Care Gas Or Water Meter Installer Name Role Phone Dulce Maria Alonzo Primary Care Provider [phone] Encounter Details Date Type Department Care Team (Late st Contact Info) Description 10/08/2007 Outpatient Historical [facility] Carmella Satniago MD NO ADDRESS ON FILE Social History Tobacco Use Types Packs/Day Years Used Date Smoking Tobacco: Never Assessed Sex and Gender Information Value Date Recorded Sex Assigned at Not on file Legal Sex Male 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
--- OUTSIDE RECORDS SUMMARY | 2025-04-30 13:33 | XMS_ITS | Encounter Summary ---
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
--- OUTSIDE RECORDS SUMMARY | 2025-04-30 13:33 | XMS_ITS | Encounter Summary ---
Author Organization [facility] Address [address] [place] [address] Care Team Providers Care Paper Pattern Folder Name Role Phone Dulce Maria Alonzo BATCH MIXER OPERATOR Primary Care Provider [phone] Encounter Details Date Type Department Care Team (Late st Contact Info) Description 02/13/2010 Ancillary Orders [facility] Orthopedics- 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 No obvious fractures are seen on the AP view. He does have a slightly high-riding humerus. Procedure Note Sami Weldon MD - 02/17/2010 Three views of the right shoulder show a type 3 acromion,acromioclavicular joint arthritis and there are no osteolytic orosteoblastic lesions of bone. No obvious fractures are seen on the APview. He does have a slightly high-riding humerus. us Sami Weldon MD DIAGNOSTIC IMAGING ORDERABLES Final Result documented in this encounter Visit Diagnoses Diagnosis Pain Generalized pain documented in this encounter Additional Health Concerns Infection Onset Date Last Indicated Resolved Time R/O COVID-06/06/2020 2020 06/08/2020 12:3 0 AM CDT COVID-06/06/2020 2020 07/06/2020 8:09 PM CDT documented as of this encounter Care Teams Paper Pattern Folder Relationship Specialty Start Date End Date Dulce Maria Alonzo FNP [address] [place] [address] PCP - General Nurse Practitioner Family 08/01/20 documented as of this encounter
--- OUTSIDE RECORDS SUMMARY | 2025-04-30 13:33 | XMS_ITS | Encounter Summary ---
Author Organization [facility] Address [address] [place] [address] Care Team Providers Care Senior Scientist Name Role Phone Dulce Maria Alonzo Primary Care Provider Encounter Details Date Type Department Care Team (Late st Contact Info) Description 09/27/2007 Outpatient Historical [facility] Medicine [place] [address] 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
--- OUTSIDE RECORDS SUMMARY | 2025-04-30 13:33 | XMS_ITS | Encounter Summary ---
Author Organization [facility] Address [address] [place] [address] Care Team Providers Care Manager Documentation Name Role Phone Dulce Maria Alonzo Primary Care Provider [phone] Encounter Details Date Type Department Care Team (Late st Contact Info) Description 09/29/2004 Outpatient Historical [facility] FY Dulce Maria Alonzo FNP [address] [place] [address] Social History Tobacco Use Types Packs/Day Years Used Date Smoking Tobacco: Never Assessed Sex and Gender Information Value Date Recorded Sex Assigned at Not on file Legal Sex Male 3:16 AM TEAM CDL DRIVER Gender Identity Not on file Sexual Orientation Not on file documented as of this encounter Plan of Treatment Not on file documented as of this encounter Procedures Procedure Name Priority Date/Time Associated Diagnosis Comments PSA MEDICARE SCREEN Routine 09/29/2004 1 0:17 AM TEAM CDL DRIVER documented in this encounter Results * PSA MEDICARE SCREEN (09/29/2004 10:17 AM TEAM CDL DRIVER) PSA 0.6 0.0 - 4.0 ng/mL INTERFACE SYSTEM Comment:Results for patients receiving treatment must be evaluated individually by the physician. 09/29/2004 10:1 7 AM TEAM CDL DRIVER us Dulce Maria KENNEY CHEMISTRY ORDERABLES COM Fi nal Result INTERFACE SYSTEM Refer to clinic/hospital department documented in this encounter Visit Diagnoses Not on filedocumented in this encounter Additional Health Concerns Infection Onset Date Last Indicated Resolved Time R/O COVID-19 2020 06/06/202006/08/2020 12:3 0 AM CDT COVID-19 2020 2020 07/06/2020 8:09 PM CDT documented as of this encounter Care Teams Manager Documentation Relationship Specialty Start Date End Date Dulce Maria Alonzo FNP [address] [place] [phone] PCP - General Nurse Practitioner Family 08/01/20 documented as of this encounter
--- OUTSIDE RECORDS SUMMARY | 2025-04-30 13:33 | XMS_ITS | Encounter Summary ---
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) Social History Tobacco Use Types Packs/Day Years Used Date Smoking Tobacco: Never Assessed Sex and Gender Information Value Date Recorded Sex Assigned at Not on file Legal Sex Male 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 Gender Identity Not on file Sexual Orientation Not on file documented as of this encounter Plan of Treatment Not on file documented as of this encounter Visit Diagnoses Diagnosis Atherosclerosis of [place] arteries of the extremities with intermittent claudication- Primary documented in this encounter Additional Health Concerns Infection Onset Date Last Indicated Resolved Time R/O COVID-19 2020 2020 06/08/2020 12:3 0 AM CDT COVID-19 2020 2020 07/06/2020 8:09 PM CDT documented as of this encounter Care Teams Fine Wire Drawer Relationship Specialty Start Date End Date Dulce Maria Alonzo FNP [address] [place] [address] PCP - General Nurse Practitioner Family 08/01/20 documented as of this encounter
--- OUTSIDE RECORDS SUMMARY | 2025-04-30 13:33 | XMS_ITS | Encounter Summary ---
Author Organization [facility] Address [address] [place] [address] Care Team Providers Care Apple Solutions Consultant Name Role Phone Dulce Maria Alonzo Primary Care Provider Encounter Details Date Type Department Care Team (Latest Contact Info) Description 04/02/2003 Outpatient Historical [facility] General Surgery [place] [address] [address] [place] [phone] [place] [address] [address] LIPOMA SKIN NEC (Primary Dx) Social History Tobacco Use Types Packs/Day Years Used Date Smoking Tobacco: Never Assessed Sex and Gender Information Value Date Recorded Sex Assigned at Not on file Legal Sex Male 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 Gender Identity Not on file Sexual Orientation Not on file documented as of this encounter Plan of Treatment Not on file documented as of this encounter Visit Diagnoses Diagnosis Lipoma of other skin and subcutaneous tissue- Primary documented in this encounter Additional Health Concerns Infection Onset Date Last Indicated Resolved Time R/O COVID-19 2020 2020 06/08/2020 12:3 0 AM CDT COVID-19 2020 2020 07/06/2020 8:09 PM CDT documented as of this encounter Care Teams Apple Solutions Consultant Relationship Specialty Start Date End Date Dulce Maria Alonzo FNP [address] [place] [address] PCP - General Nurse Practitioner Family 08/01/20 documented as of this encounter
--- OUTSIDE RECORDS SUMMARY | 2025-04-30 13:33 | XMS_ITS | Encounter Summary ---
Author Organization [facility] Address [address] [place] [address] Care Team Providers Care Swahili Teacher Name Role Phone Dulce Maria Alonzo Primary Care Provider Encounter Details Date Type Department Care Team (Latest Contact Info) Description 08/15/2003 Outpatient Historical [facility] [address] [place] [address] Flip Robertson MD [address] [facility] [address] [place] [address] Pain in limb (Primary Dx); OPEN WOUND FOOT-COMPL Social History Tobacco Use Types Packs/Day Years Used Date Smoking Tobacco: Never Assessed Sex and Gender Information Value Date Recorded Sex Assigned at Not on file Legal 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 Male 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 Gender Identity Not on file Sexual Orientation Not on file documented as of this encounter Plan of Treatment Not on file documented as of this encounter Visit Diagnoses Diagnosis Pain in limb- Primary Pain in soft tissues of limb Open wound of foot except toe(s) alone, complicated documented in this encounter Additional Health Concerns Infection Onset Date Last Indicated Resolved Time R/O COVID-19 2020 2020 06/08/2020 12:3 0 AM CDT COVID-19 2020 2020 07/06/2020 8:09 PM CDT documented as of this encounter Care Teams Swahili Teacher Relationship Specialty Start Date End Date Dulce Maria Alonzo FNP [address] [place] [address] PCP - General Nurse Practitioner Family 08/01/20 documented as of this encounter
--- OUTSIDE RECORDS SUMMARY | 2025-04-30 13:33 | XMS_ITS | Encounter Summary ---
Author Organization [facility] Address [address] [place] [address] Care Team Providers Care Forge Utility Worker Name Role Phone Dulce Maria Alonzo Primary Care Provider Encounter Details Date Type Department Care Team (Latest Contact Info) Description 05/06/2006 Outpatient Historical [facility] Medicine [place] [address] [facility] [address] [place] [address] Dulce Maria Alonzo FNP [address] [place] [address] Other and Unspecified Coagulation Defects (Primary Dx) Social History Tobacco Use Types Packs/Day Years Used Date Smoking Tobacco: Never Assessed Sex and Gender Information Value Date Recorded Sex Assigned at Not on file Legal Sex Male 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 Gender Identity Not on file Sexual Orientation Not on file documented as of this encounter Plan of Treatment Not on file documented as of this encounter Visit Diagnoses Diagnosis Other and unspecified coagulation defects- Primary documented in this encounter Additional Health Concerns Infection Onset Date Last Indicated Resolved Time R/O COVID-19 2020 2020 06/08/2020 12:3 0 AM CDT COVID-19 2020 2020 07/06/2020 8:09 PM CDT documented as of this encounter Care Teams Forge Utility Worker Relationship Specialty Start Date End Date Dulce Maria Alonzo FNP [address] [place] [address] PCP - General Nurse Practitioner Family 08/01/20 documented as of this encounter
--- OUTSIDE RECORDS SUMMARY | 2025-04-30 13:33 | XMS_ITS | Encounter Summary ---
Author Organization [facility] Address [address] [place] [address] Phone Care Team Providers Care Security Systems Administrator Name Role Phone Dulce Maria Alonzo Primary Care Provider [phone] Encounter Details Date Type Department Care Team (Late st Contact Info) Description 09/07/2019 Patient Outreach [facility] [employer] [address] [place] [address] Pura Dorene [address] [place] [address] Social History Tobacco Use Types Packs/Day Years Used Date Smoking Tobacco: Never Smokeless Tobacco: Never Alcohol Use Standard Drinks/Week Comments Never 0 (1 standard drink = 0.6 oz pur e alcohol) AUDIT-C Answer Date Recorded Frequency of Alcohol Consumption Never 09/07/2019 Average Number of Drinks Not on file 019 Frequency of Binge Drinking Not on file 08/14 Sex and Gender Information Value Date Recorded Sex Assigned at Not on file Legal Sex Male 12:47 PM EST Gender Identity Not on file Sexual Orientation Not on file documented as of this encounter Functional Status documented as of this encounter Plan of Treatment Not on file documented as of this encounter Visit Diagnoses Not on filedocumented in this encounter Care Teams Security Systems Administrator Relationship Specialty Start Date End Date Dulce Maria Alonzo FNP [address] [place] [address] PCP - General Internal Medicine 07/19/19 documented as of this encounter
--- OUTSIDE RECORDS SUMMARY | 2025-04-30 13:33 | XMS_ITS | Encounter Summary ---
Author Organization [facility] Address [address] [place] [address] Care Team Providers Care Corporate Scheduler Name Role Phone Dulce Maria Alonzo Primary Care Provider Encounter Details Date Type Department Care Team (Latest Contact Info) Description 08/20/2003 Outpatient Historical [facility] [address] [place] [address] Flip Robertson MD [address] [facility] [address] [place] [address] Pain in limb (Primary Dx); CELLULITIS NOS Social History Tobacco Use Types Packs/Day Years Used Date Smoking Tobacco: Never Assessed Sex and Gender Information Value Date Recorded Sex Assigned at Not on file Legal Sex Male 3:16 AM CORPORATE SCHEDULER Gender Identity Not on file Sexual Orientation Not on file documented as of this encounter Plan of Treatment Not on file documented as of this encounter Visit Diagnoses Diagnosis Pain in limb- Primary Pain in soft tissues of limb Cellulitis and abscess of unspecified site documented in this encounter Additional Health Concerns Infection Onset Date Last Indicated Resolved Time R/O COVID-19 2020 2020 06/08/2020 12:3 0 AM CDT COVID-19 2020 2020 07/06/2020 8:09 PM CDT documented as of this encounter Care Teams Corporate Scheduler Relationship Specialty Start Date End Date Dulce Maria Alonzo FNP [address] [place] [phone] PCP - General Nurse Practitioner Family 08/01/20 documented as of this encounter
--- OUTSIDE RECORDS SUMMARY | 2025-04-30 13:33 | XMS_ITS | Encounter Summary ---
Author Organization [facility] Address [address] [place] [address] Care Team Providers Care Burning Machine Operator Name Role Phone Dulce Maria Alonzo Primary Care Provider Encounter Details Date Type Department Care Team (Late st Contact Info) Description 10/05/2007 Outpatient Historical [facility] Cardiac Thoracic Vascular Surg [place] [address] [place] [address] Carmella Santiago MD NO ADDRESS ON FILE Social History Tobacco Use Types Packs/Day Years Used Date Smoking Tobacco: Never Assessed Sex and Gender Information Value Date Recorded Sex Assigned at Not on file Legal Sex Male 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 Mauro Espino. As you know, heis an individual who is 68 years old who had a status post right fem-pop bypass done in 2003. This recently was opened up with lytics and subsequently thrombosed again. The patient presently is having ischemic pain to the lower extremities with some rest pain too. At the present time, his ZEB is onthe right 12.42, left is not applicable as it does have triphasic form. 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 He states he quit smoking approximately amonth ago. Review of his past reveals that he is a chronic smoker who quits intermittently. Negative for alcohol abuse. FAMILY HISTORY: Father of myocardial infarction. Brother had myocardial infarction age 51. REVIEW OF SYSTEMS: Negative for amaurosis fugax, transient ischemic attack, no history of orthopnea, paroxysmal nocturnal dyspnea, no previous coronary history. The patient recently was admitted for epididymitis. No important pulmonary or renal dysfunction noted at this present time. CURRENT MEDICATIONS: He is on Coumadin, diltiazem and aspirin. ALLERGIES: No known drug allergies. PHYSICAL EXAMINATION: GENERAL: A disheveled individual. He is awake and alert. He is well built. HEENT: Normocephalic, atraumatic. Pupils are equal, round and reactive to light. Extraocular muscles intact. Cranial nerves II-XII intact. NECK: No JVD. No carotid bruits. HEART: Regular rate and rhythm. LUNGS: Clear to auscultation. ABDOMEN: Soft, nontender. Nondistended. EXTREMITIES: Excellent femoral pulses. ASSESSMENT AND PLAN: This unfortunate individual has a thrombosed graft. I think the patient is probably going to require to have a distal bypass . I would like to get an arteriogram before that. Therisks, benefits, and alternatives of arteriogram are discussed including, but not limited to, the risk of infection, bleeding, the possibility of thrombosis, the possibility of emergency surgery, thepossibility of retroperitoneal bleeding. He understands all and wants to proceed with this procedure and will do it in a month after his epididymitis cools down. Thanks again for allowing me to see him and allowing us to participate in his care. A copy of this consult was sent to KATALINA Salinas M.D. Cardiovascular & Thoracic Surgery Electronically Signed by Carmella Santiago M.D. 10/07/2007 15:36 , 12:45 P P, [phone] Document #: [id number] cc: KATALINA Salinas F SAFETY OFFICER documented in this encounter Plan of Treatment Not on file documented as of this encounter Visit Diagnoses Not on filedocumented in this encounter Additional Health Concerns Infection Onset Date Last Indicated Resolved Time R/O COVID-06/06/2020 2020 06/08/2020 12:3 0 AM CDT COVID-06/06/2020 2020 07/06/2020 8:09 PM CDT documented as of this encounter Care Teams Burning Machine Operator Relationship Specialty Start Date End Date Dulce Maria Alonzo FNP [address] [place] [phone] PCP - General Nurse Practitioner Family 08/01/20 documented as of this encounter
--- OUTSIDE RECORDS SUMMARY | 2025-04-30 13:33 | XMS_ITS | Encounter Summary ---
Author Organization [facility] Address [address] [place] [address] Care Team Providers Care Coding Quality Analyst Name Role Phone Dulce Maria Alonzo Primary Care Provider Encounter Details Date Type Department Care Team (Latest Contact Info) Description 01/26/2006 Outpatient Historical [facility] Medicine [place] [address] [facility] [address] [place] [address] Dulce Maria Alonzo FNP [address] [place] [address] Encounter for Long-Term (Current) Use of Anticoagulants (Primary Dx) Social History Tobacco Use Types Packs/Day Years Used Date Smoking Tobacco: Never Assessed Sex and Gender Information Value Date Recorded Sex Assigned at Not on file Legal Sex Male 3:16 AM TAX ACCOUNTANT Gender Identity Not on file Sexual Orientation Not on file documented as of this encounter Plan of Treatment Not on file documented as of this encounter Visit Diagnoses Diagnosis terminal gauger 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
--- OUTSIDE RECORDS SUMMARY | 2025-04-30 13:33 | XMS_ITS | Encounter Summary ---
Author Organization [facility] Address [address] [place] [address] Care Team Providers Care Associate Professor Of Violin Name Role Phone Dulce Maria Alonzo Primary Care Provider Encounter Details Date Type Department Care Team (Latest Contact Info) Description 12/24/2005 Outpatient Historical [facility] Medicine [place] [address] [facility] [address] [place] [phone] Dulce Maria Alonzo FNP [address] [place] [address] Other and Unspecified Coagulation Defects (Primary Dx) Social History Tobacco Use Types Packs/Day Years Used Date Smoking Tobacco: Never Assessed Sex and Gender Information Value Date Recorded Sex Assigned at Not on file Legal Sex Male 3: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
--- OUTSIDE RECORDS SUMMARY | 2025-04-30 13:33 | XMS_ITS | Encounter Summary ---
Author Organization [facility] Address [address] [place] [address] Care Team Providers Care Bullet Swaging Machine Operator Name Role Phone Dulce Maria Alonzo Primary Care Provider Encounter Details Date Type Department Care Team (Latest Contact Info) Description 07/30/2003 Outpatient Historical [facility] [address] [place] [address] Alen Martinez DO NO ADDRESS ON FILE OPEN WOUND OF FOOT (Primary Dx) Social History Tobacco Use Types Packs/Day Years Used Date Smoking Tobacco: Never Assessed Sex and Gender Information Value Date Recorded Sex Assigned at Not on file Legal Sex Male 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 Gender Identity Not on file Sexual Orientation Not on file documented as of this encounter Plan of Treatment Not on file documented as of this encounter Visit Diagnoses Diagnosis Open wound of foot except toe(s) alone, without mention of complication- Primary documented in this encounter Additional Health Concerns Infection Onset Date Last Indicated Resolved Time R/O COVID-19 2020 2020 06/08/2020 12:3 0 AM CDT COVID-19 2020 2020 07/06/2020 8:09 PM CDT documented as of this encounter Care Teams Bullet Swaging Machine Operator Relationship Specialty Start Date End Date Dulce Maria Alonzo FNP [address] [place] [phone] PCP - General Nurse Practitioner Family 08/01/20 documented as of this encounter
--- OUTSIDE RECORDS SUMMARY | 2025-04-30 13:33 | XMS_ITS | Encounter Summary ---
Author Organization [facility] Address [address] [place] [address] Care Team Providers Care Technical Sourcing Recruiter Name Role Phone Dulce Maria Alonzo Primary Care Provider Encounter Details Date Type Department Care Team (Latest Contact Info) Description 07/30/2005 Outpatient Historical [facility] Medicine [place] [address] [facility] [address] [place] [address] Dulce Maria Alonzo FNP [address] [place] [address] COAGULAT DEFECT NEC/NOS (Primary Dx) Social History Tobacco Use Types Packs/Day Years Used Date Smoking Tobacco: Never Assessed Sex and Gender Information Value Date Recorded Sex Assigned at Not on file Legal Sex Male 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
--- OUTSIDE RECORDS SUMMARY | 2025-04-30 13:33 | XMS_ITS | Encounter Summary ---
Author Organization [facility] Address [address] [place] [address] Care Team Providers Care Tube Winder Name Role Phone Dulce Maria Alonzo Primary Care Provider Encounter Details Date Type Department Care Team (Latest Contact Info) Description 02/25/2006 Outpatient Historical [facility] Medicine [place] [address] [facility] [address] [place] [address] Dulce Maria Alonzo FNP [address] [place] [address] Encounter for Long-Term (Current) Use of Anticoagulants (Primary Dx) Social History Tobacco Use Types Packs/Day Years Used Date Smoking Tobacco: Never Assessed Sex and Gender Information Value Date Recorded Sex Assigned at Not on file Legal Sex Male 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 Gender Identity Not on file Sexual Orientation Not on file documented as of this encounter Plan of Treatment Not on file documented as of this encounter Visit Diagnoses Diagnosis director long term care (current) use of anticoagulants- Primary Long-term (current) use of anticoagulants documented in this encounter Additional Health Concerns Infection Onset Date Last Indicated Resolved Time R/O COVID-19 2020 2020 06/08/2020 12:3 0 AM CDT COVID-19 2020 2020 07/06/2020 8:09 PM CDT documented as of this encounter Care Teams Tube Winder Relationship Specialty Start Date End Date Dulce Maria Alonzo FNP [address] [place] [address] PCP - General Nurse Practitioner Family 08/01/20 documented as of this encounter
--- OUTSIDE RECORDS SUMMARY | 2025-04-30 13:33 | XMS_ITS | Encounter Summary ---
Author Organization [facility] Address [address] [place] [address] Care Team Providers Care Back Closer Name Role Phone Dulce Maria Alonzo Primary Care Provider Encounter Details Date Type Department Care Team (Latest Contact Info) Description 06/08/2006 Outpatient Historical [facility] Medicine [place] [address] [facility] [address] [place] [address] Dulce Maria Alonzo FNP [address] [place] [address] Other Malaise and Fatigue (Primary Dx); Encounter for Long-Term (Current) Use of Anticoagulants Social History Tobacco Use Types Packs/Day Years Used Date Smoking Tobacco: Never Assessed Sex and Gender Information Value Date Recorded Sex Assigned at Not on file Legal 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 Gender Identity Not on file Sexual Orientation Not on file documented as of this encounter Plan of Treatment Not on file documented as of this encounter Visit Diagnoses Diagnosis Other malaise and fatigue- Primary custodial (current) use of anticoagulants Long-term (current) use of anticoagulants documented in this encounter Additional Health Concerns Infection Onset Date Last Indicated Resolved Time R/O COVID-19 2020 2020 06/08/2020 12:3 0 AM CDT COVID-19 2020 2020 07/06/2020 8:09 PM CDT documented as of this encounter Care Teams Back Closer Relationship Specialty Start Date End Date Dulce Maria Alonzo FNP [address] [place] [address] PCP - General Nurse Practitioner Family 08/01/20 documented as of this encounter
--- OUTSIDE RECORDS SUMMARY | 2025-04-30 13:33 | XMS_ITS | Encounter Summary ---
Author Organization [facility] Address [address] [place] [address] Care Team Providers Care Information Security Officer Name Role Phone Dulce Maria Alonzo Primary Care Provider Encounter Details Date Type Department Care Team (Late st Contact Info) Description 09/24/2003 Inpatient Historical [facility], Derek Morillo MD [address] [place] [phone] ATHEROSCL ART EXTREM INTERMIT [facility] (Primary Dx) Social History Tobacco Use Types Packs/Day Years Used Date Smoking Tobacco: Never Assessed Sex and Gender Information Value Date Recorded Sex Assigned at Not on file Legal Sex Male 3: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 DIRECTOR Gender Identity Not on file Sexual Orientation Not on file documented as of this encounter Plan of Treatment Not on file documented as of this encounter Visit Diagnoses Diagnosis Atherosclerosis of [place] arteries of the extremities with intermittent claudication- Primary documented in this encounter Additional Health Concerns Infection Onset Date Last Indicated Resolved Time R/O COVID-19 2020 2020 06/08/2020 12:3 0 AM CDT COVID-19 2020 2020 07/06/2020 8:09 PM CDT documented as of this encounter Care Teams Information Security Officer Relationship Specialty Start Date End Date Dulce Maria Alonzo FNP [address] [place] [phone] PCP - General Nurse Practitioner Family 08/01/20 documented as of this encounter
--- OUTSIDE RECORDS SUMMARY | 2025-04-30 13:33 | XMS_ITS | Encounter Summary ---
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); HYPERLIPIDEMIA NEC/NOS Social History Tobacco Use Types Packs/Day Years Used Date Smoking Tobacco: Never Assessed Sex and Gender Information Value Date Recorded Sex Assigned at Not on file Legal Sex Male 3:16 AM RESIDENTIAL DIRECTOR Gender Identity Not on file Sexual Orientation Not on file documented as of this encounter Plan of Treatment Not on file documented as of this encounter Visit Diagnoses Diagnosis 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
--- OUTSIDE RECORDS SUMMARY | 2025-04-30 13:33 | XMS_ITS | Encounter Summary ---
Author Organization [facility] Address [address] [place] [address] Care Team Providers Care Sole Ruffer Name Role Phone Dulce Maria Alonzo Primary Care Provider Encounter Details Date Type Department Care Team (Late st Contact Info) Description 11/07/2007 Outpatient Historical [facility] Cardiac Thoracic Vascular Surg [place] [address] [place] [address] Carmella Santiago MD NO ADDRESS ON FILE Social History Tobacco Use Types Packs/Day Years Used Date Smoking Tobacco: Never Assessed Sex and Gender Information Value Date Recorded Sex Assigned at Not on file 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
--- OUTSIDE RECORDS SUMMARY | 2025-04-30 13:33 | XMS_ITS | Encounter Summary ---
Author Organization [facility] Address [address] [place] [address] Care Team Providers Care Conveyor Mechanic Name Role Phone Dulce Maria Alonzo Primary Care Provider Encounter Details Date Type Department Care Team (Latest Contact Info) Description 07/17/2003 Outpatient Historical [facility] Medicine [place] [address] [facility] [address] [place] [address] Alen Martinez DO NO ADDRESS ON FILE OPEN WOUND OF TOE (Primary Dx) Social History Tobacco Use Types Packs/Day Years Used Date Smoking Tobacco: Never Assessed Sex and Gender Information Value Date Recorded Sex Assigned at Not on file Legal Sex Male 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 Gender Identity Not on file Sexual Orientation Not on file documented as of this encounter Plan of Treatment Not on file documented as of this encounter Visit Diagnoses Diagnosis Open wound of toe(s), without mention of complication- Primary documented in this encounter Additional Health Concerns Infection Onset Date Last Indicated Resolved Time R/O COVID-19 2020 2020 06/08/2020 12:3 0 AM CDT COVID-19 2020 2020 07/06/2020 8:09 PM CDT documented as of this encounter Care Teams Conveyor Mechanic Relationship Specialty Start Date End Date Dulce Maria Alonzo FNP [address] [place] [address] PCP - General Nurse Practitioner Family 08/01/20 documented as of this encounter
--- OUTSIDE RECORDS SUMMARY | 2025-04-30 13:33 | XMS_ITS | Encounter Summary ---
Author Organization [facility] Address [address] [place] [address] Care Team Providers Care Livestock Farm Workers Name Role Phone Dulce Maria Alonzo Primary Care Provider Encounter Details Date Type Department Care Team (Late st Contact Info) Description 10/11/2007 Outpatient Historical [facility] Medicine [place] [address] [facility] [address] [place] [address] Dulce Maria Alonzo FNP [address] [place] [address] Social History Tobacco Use Types Packs/Day Years Used Date Smoking Tobacco: Never Assessed Sex and Gender Information Value Date Recorded Sex Assigned at Not on file 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 Pulse: 0. Not dictated. BP: 140/80. CHIEF COMPLAINT: Here for med refills on his warfarin. To have surgery November 11, 2007 on his leg. OBJECTIVE: PHYSICAL EXAMINATION: GENERAL: A 67-year-old white male, alert and oriented x3 in no acute distress. SKIN: Warm and dry. Color pink. HEENT: Within normal limits. </NECK/< Supple. LUNGS: Clear. HEART: S1-S2 clear. Regular rate and rhythm. No murmur noted. ABDOMEN: Soft and round. Bowel sounds present x4 quadrants. No tenderness and no organomegaly is noted. EXTREMITIES: Pedal pulses in the lower extremity are diminished. ASSESSMENT: Peripheral vascular disease, anticoagulation therapy. Chronic obstructive pulmonary disease. Malfunction of the vascular device of the graft. PLAN: The patient to have a prothrombin time with an INR today. He is to keep his scheduled appointment for surgery. He is to return if he has any problems in between time. The patient verbalizes understanding and is in agreement with the plan of care. KATALINA Salinas [facility] Electronically Signed by KATALINA Salinas 10/21/2007 16:39 , [place] Document #: [id number] cc: REPAIRMAN documented in this encounter Plan of Treatment Not on file documented as of this encounter Visit Diagnoses Not on filedocumented in this encounter Additional Health Concerns Infection Onset Date Last Indicated Resolved Time R/O COVID-19 2020 2020 06/08/2020 12:3 0 AM CDT COVID-19 2020 2020 07/06/2020 8:09 PM CDT documented as of this encounter Care Teams Livestock Farm Workers Relationship Specialty Start Date End Date Dulce Maria Alonzo FNP [address] [place] [phone] PCP - General Nurse Practitioner Family 08/01/20 documented as of this encounter
--- OUTSIDE RECORDS SUMMARY | 2025-04-30 13:33 | XMS_ITS | Encounter Summary ---
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
--- OUTSIDE RECORDS SUMMARY | 2025-04-30 13:33 | XMS_ITS | Encounter Summary ---
Author Organization [facility] Address [address] [place] [address] Care Team Providers Care Hoop Bending Machine Operator Name Role Phone Dulce Maria Alonzo Primary Care Provider Encounter Details Date Type Department Care Team (Latest Contact Info) Description 09/01/2005 Outpatient Historical [facility] Medicine [place] 104 [facility] 60 [place] [address] Dulce Maria Alonzo FNP [address] [place] [address] HYPERTENSION NOS (Primary Dx); MALAISE AND FATIGUE NEC; AFTERCARE [facility] ANTICOAG USE Social History Tobacco Use Types Packs/Day Years Used Date Smoking Tobacco: Never Assessed Sex and Gender Information Value Date Recorded Sex Assigned at Not on file Legal Sex Male 3:16 AM PYROGLAZER Gender Identity Not on file Sexual Orientation Not on file documented as of this encounter Plan of Treatment Not on file documented as of this encounter Visit Diagnoses Diagnosis Unspecified essential hypertension- Primary Other malaise and fatigue termite treater (current) use of anticoagulants Long-term (current) use of anticoagulants documented in this encounter Additional Health Concerns Infection Onset Date Last Indicated Resolved Time R/O COVID-19 2020 2020 06/08/2020 12:3 0 AM CDT COVID-19 2020 2020 07/06/2020 8:09 PM CDT documented as of this encounter Care Teams Hoop Bending Machine Operator Relationship Specialty Start Date End Date Dulce Maria Alonzo FNP [address] [place] [address] PCP - General Nurse Practitioner Family 08/01/20 documented as of this encounter
--- OUTSIDE RECORDS SUMMARY | 2025-04-30 13:33 | XMS_ITS | Encounter Summary ---
Author Organization [facility] Address [address] [place] [address] Care Team Providers Care It Technical Specialist Name Role Phone Dulce Maria Alonzo Primary Care Provider [phone] Encounter Details Date Type Department Care Team (Latest Contact Info) Description 08/19/2004 Outpatient Historical [facility] Medicine [place] 104 [facility] [address] [place] [address] Dulce Maria Alonzo FNP [address] [place] [address] AFTERCARE [facility] ANTICOAG USE (Primary Dx); OTHER MALAISE AND FATIGUE Social History Tobacco Use Types Packs/Day Years Used Date Smoking Tobacco: Never Assessed Sex and Gender Information Value Date Recorded Sex Assigned at Not on file Legal 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 Gender Identity Not on file Sexual Orientation Not on file documented as of this encounter Plan of Treatment Not on file documented as of this encounter Visit Diagnoses Diagnosis 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
--- OUTSIDE RECORDS SUMMARY | 2025-04-30 13:33 | XMS_ITS | Encounter Summary ---
Author Organization [facility] Address [address] [place] [address] Care Team Providers Care Congressional Aide Name Role Phone Dulce Maria Alonzo Primary Care Provider Encounter Details Date Type Department Care Team (Latest Contact Info) Description 10/25/2003 Outpatient Historical [facility] Medicine [place] 104 [facility] 60 [place] [address] Dulce Maria Alonzo FNP [address] [place] [address] ACUTE BRONCHITIS (Primary Dx) Social History Tobacco Use Types Packs/Day Years Used Date Smoking Tobacco: Never Assessed Sex and Gender Information Value Date Recorded Sex Assigned at Not on file Legal 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 Gender Identity Not on file Sexual Orientation Not on file documented as of this encounter Plan of Treatment Not on file documented as of this encounter Visit Diagnoses Diagnosis Acute bronchitis- Primary documented in this encounter Additional Health Concerns Infection Onset Date Last Indicated Resolved Time R/O COVID-19 2020 2020 06/08/2020 12:3 0 AM CDT COVID-19 2020 2020 07/06/2020 8:09 PM CDT documented as of this encounter Care Teams Congressional Aide Relationship Specialty Start Date End Date Dulce Maria Alonzo FNP [address] [place] [address] PCP - General Nurse Practitioner Family 08/01/20 documented as of this encounter
--- OUTSIDE RECORDS SUMMARY | 2025-04-30 13:33 | XMS_ITS | Encounter Summary ---
Author Organization [facility] Address [address] [place] [address] Care Team Providers Care Manufacturer Agent Name Role Phone Dulce Maria Alonzo Primary Care Provider Encounter Details Date Type Department Care Team (Late st Contact Info) Description 11/07/2007 Emergency [facility] Emergency Department [address] 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 Gender Identity Not on file Sexual Orientation Not on file documented as of this encounter Plan of Treatment Not on file documented as of this encounter Visit Diagnoses Diagnosis long term (current) use of anticoagulants Long-term (current) use of anticoagulants Encounter for long-term (current) use of aspirin documented in this encounter Additional Health Concerns Infection Onset Date Last Indicated Resolved Time R/O COVID-19 2020 2020 06/08/2020 12:3 0 AM CDT COVID-19 2020 2020 07/06/2020 8:09 PM CDT documented as of this encounter Care Teams Manufacturer Agent Relationship Specialty Start Date End Date Dulce Maria Alonzo FNP [address] [place] [phone] PCP - General Nurse Practitioner Family 08/01/20 documented as of this encounter
--- OUTSIDE RECORDS SUMMARY | 2025-04-30 13:33 | XMS_ITS | Encounter Summary ---
Author Organization [facility] Address [address] [place] [address] Care Team Providers Care Heel Brusher Name Role Phone Dulce Maria Alonzo Primary Care Provider Encounter Details Date Type Department Care Team (Latest Contact Info) Description 07/13/2003 Outpatient Historical 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 Gender Identity Not on file Sexual Orientation Not on file documented as of this encounter Plan of Treatment Not on file documented as of this encounter Visit Diagnoses Diagnosis Cellulitis and abscess of toe, unspecified- Primary documented in this encounter Additional Health Concerns Infection Onset Date Last Indicated Resolved Time R/O COVID-19 2020 2020 06/08/2020 12:3 0 AM CDT COVID-19 2020 2020 07/06/2020 8:09 PM CDT documented as of this encounter Care Teams Heel Brusher Relationship Specialty Start Date End Date Dulce Maria Alonzo FNP [address] [place] [address] PCP - General Nurse Practitioner Family 08/01/20 documented as of this encounter
--- OUTSIDE RECORDS SUMMARY | 2025-04-30 13:33 | XMS_ITS | Encounter Summary ---
Author Organization [facility] Address [address] [facility] [address] [place] [address] Phone Care Team Providers Care Decay Control Operator Name Role Phone Dulce Maria Alonzo Primary Care Provider [phone] Reason for Visit * Reason Comments Med Refill Encounter Details Date Type Department Care Team (Late st Contact Info) Description 02/02/2021 Refill [facility] [address] [place] [address] Rita Gaytan, EQUIPMENT MECHANIC [address] [facility] [address] [place] [address] Social History Tobacco Use Types [...] on filedocumented in this encounter Care Teams Decay Control Operator Relationship Specialty Start Date End Date Dulce Maria Alonzo FNP [address] [place] [address] PCP - General Internal Medicine 07/19/19 documented as of this encounter
--- OUTSIDE RECORDS SUMMARY | 2025-04-30 13:33 | XMS_ITS | Encounter Summary ---
Author Organization [facility] Address [address] [place] [address] Care Team Providers Care Agricultural Researcher Name Role Phone Dulce Maria Alonzo Primary Care Provider Encounter Details Date Type Department Care Team (Latest Contact Info) Description 05/21/2005 Outpatient Historical 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 Gender Identity Not on file Sexual Orientation Not on file documented as of this encounter Plan of Treatment Not on file documented as of this encounter Visit Diagnoses Diagnosis halfway (current) use of anticoagulants- Primary Long-term (current) use of anticoagulants documented in this encounter Additional Health Concerns Infection Onset Date Last Indicated Resolved Time R/O COVID-19 2020 2020 06/08/2020 12:3 0 AM CDT COVID-19 2020 2020 07/06/2020 8:09 PM CDT documented as of this encounter Care Teams Agricultural Researcher Relationship Specialty Start Date End Date Dulce Maria Alonzo FNP [address] [place] [address] PCP - General Nurse Practitioner Family 08/01/20 documented as of this encounter
--- OUTSIDE RECORDS SUMMARY | 2025-04-30 13:33 | XMS_ITS | Encounter Summary ---
Author Organization [facility] Address [address] [place] [address] Care Team Providers Care Spool Winder Name Role Phone Dulce Maria Alonzo Primary Care Provider Encounter Details Date Type Department Care Team (Latest Contact Info) Description 12/29/2002 Outpatient Historical [facility] [address] [place] [address] Flip Robertson MD [address] [facility] [address] [place] [address] ENLARGEMENT LYMPH NODES (Primary Dx); BACKACHE NOS Social History Tobacco Use Types Packs/Day Years Used Date Smoking Tobacco: Never Assessed Sex and Gender Information Value Date Recorded Sex Assigned at Not on file 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 Gender Identity Not on file Sexual Orientation Not on file documented as of this encounter Plan of Treatment Not on file documented as of this encounter Visit Diagnoses Diagnosis Enlargement of lymph nodes- Primary Backache, unspecified documented in this encounter Additional Health Concerns Infection Onset Date Last Indicated Resolved Time R/O COVID-19 2020 2020 06/08/2020 12:3 0 AM CDT COVID-19 2020 2020 07/06/2020 8:09 PM CDT documented as of this encounter Care Teams Spool Winder Relationship Specialty Start Date End Date Dulce Maria Alonzo FNP [address] [place] [address] PCP - General Nurse Practitioner Family 08/01/20 documented as of this encounter
--- OUTSIDE RECORDS SUMMARY | 2025-04-30 13:33 | XMS_ITS | Encounter Summary ---
Author Organization [facility] Address [address] [place] [address] Care Team Providers Care Clip Riveter Name Role Phone Dulce Maria Alonzo Primary Care Provider Encounter Details Date Type Department Care Team (Latest Contact Info) Description 07/24/2003 Outpatient Historical [facility] Medicine [place] 104 [facility] 60 [place] [address] Alen Martinez DO NO ADDRESS ON FILE OPEN WOUND OF TOE (Primary Dx) Social History Tobacco Use Types Packs/Day Years Used Date Smoking Tobacco: Never Assessed Sex and Gender Information Value Date Recorded Sex Assigned at Not on file 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
--- OUTSIDE RECORDS SUMMARY | 2025-04-30 13:33 | XMS_ITS | Encounter Summary ---
Author Organization [facility] Address [address] [place] [address] Care Team Providers Care Solar Power Installer Name Role Phone Dulce Maria Alonzo Primary Care Provider Encounter Details Date Type Department Care Team (Latest Contact Info) Description 06/30/2005 Outpatient Historical [facility] Medicine [place] [address] [facility] 60 [place] [address] Dulce Maria Alonzo FNP [address] [place] [address] AFTERCARE [facility] ANTICOAG USE (Primary Dx) Social History Tobacco Use Types Packs/Day Years Used Date Smoking Tobacco: Never Assessed Sex and Gender Information Value Date Recorded Sex Assigned at Not on file Legal 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 Male 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 Gender Identity Not on file Sexual Orientation Not on file documented as of this encounter Plan of Treatment Not on file documented as of this encounter Visit Diagnoses Diagnosis snf (current) use of anticoagulants- Primary Long-term (current) use of anticoagulants documented in this encounter Additional Health Concerns Infection Onset Date Last Indicated Resolved Time R/O COVID-19 2020 2020 06/08/2020 12:3 0 AM CDT COVID-19 2020 2020 07/06/2020 8:09 PM CDT documented as of this encounter Care Teams Solar Power Installer Relationship Specialty Start Date End Date Dulce Maria Alonzo FNP [address] [place] [address] PCP - General Nurse Practitioner Family 08/01/20 documented as of this encounter
--- OUTSIDE RECORDS SUMMARY | 2025-04-30 13:33 | XMS_ITS | Encounter Summary ---
Author Organization [facility] Address [address] [place] [address] Care Team Providers Care Bread Packer Name Role Phone Dulce Maria Alonzo Primary Care Provider Encounter Details Date Type Department Care Team (Latest Contact Info) Description 10/01/2005 Outpatient Historical [facility] Medicine [place] 104 [facility] 60 [place] [address] Dulce Maria Alonzo FNP [address] [place] [address] COAGULAT DEFECT NEC/NOS (Primary Dx) Social History Tobacco Use Types Packs/Day Years Used Date Smoking Tobacco: Never Assessed Sex and Gender Information Value Date Recorded Sex Assigned at Not on file 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
--- OUTSIDE RECORDS SUMMARY | 2025-04-30 13:33 | XMS_ITS | Encounter Summary ---
Author Organization [facility] Address [address] [place] [address] Care Team Providers Care Mortgage Processor Name Role Phone Dulce Maria Alonzo Primary Care Provider Encounter Details Date Type Department Care Team (Latest Contact Info) Description 01/02/2003 Outpatient Historical [facility] General Surgery [address] [address] [address] [place] [address] [place] [id number] [address] LIPOMA NOS (Primary Dx) Social History Tobacco Use Types Packs/Day Years Used Date Smoking Tobacco: Never Assessed Sex and Gender Information Value Date Recorded Sex Assigned at Not on file Legal Sex Male 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 Gender Identity Not on file Sexual Orientation Not on file documented as of this encounter Plan of Treatment Not on file documented as of this encounter Visit Diagnoses Diagnosis Lipoma of unspecified site- Primary documented in this encounter Additional Health Concerns Infection Onset Date Last Indicated Resolved Time R/O COVID-19 2020 2020 06/08/2020 12:3 0 AM CDT COVID-19 2020 2020 07/06/2020 8:09 PM CDT documented as of this encounter Care Teams Mortgage Processor Relationship Specialty Start Date End Date Dulce Maria Alonzo FNP [address] [place] [address] PCP - General Nurse Practitioner Family 08/01/20 documented as of this encounter
--- OUTSIDE RECORDS SUMMARY | 2025-04-30 13:33 | XMS_ITS | Encounter Summary ---
Author Organization [facility] Address [address] [place] [address] Care Team Providers Care Power Plant Operations Manager Name Role Phone Dulce Maria Alonzo Primary Care Provider Encounter Details Date Type Department Care Team (Late st Contact Info) Description 10/04/2007 Outpatient Historical [facility] Medicine [place] 104 [facility] 60 [place] [address] Dulce Maria Alonzo FNP [address] [place] [address] Social History Tobacco Use Types Packs/Day Years Used Date Smoking Tobacco: Never Assessed Sex and Gender Information Value Date Recorded Sex Assigned at Not on file Legal 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
--- OUTSIDE RECORDS SUMMARY | 2025-04-30 13:33 | XMS_ITS | Encounter Summary ---
Author Organization [facility] Address [address] [place] [address] Care Team Providers Care Order Dispatcher Chief Name Role Phone Dulce Maria Alonzo Primary Care Provider Encounter Details Date Type Department Care Team (Latest Contact Info) Description 09/11/2003 Outpatient Historical [facility] Cardiac Thoracic Vascular Surg [place] [address] [place] [address] Abisai Carlson MD NO ADDRESS ON FILE ATHEROSCL ART EXTREM INTERMIT [facility] (Primary Dx) Social History Tobacco Use Types Packs/Day Years Used Date Smoking Tobacco: Never Assessed Sex and Gender Information Value Date Recorded Sex Assigned at Not on file 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 Gender Identity Not on file Sexual Orientation Not on file documented as of this encounter Plan of Treatment Not on file documented as of this encounter Visit Diagnoses Diagnosis Atherosclerosis of [place] arteries of the extremities with intermittent claudication- Primary documented in this encounter Additional Health Concerns Infection Onset Date Last Indicated Resolved Time R/O COVID-19 2020 2020 06/08/2020 12:3 0 AM CDT COVID-19 2020 2020 07/06/2020 8:09 PM CDT documented as of this encounter Care Teams Order Dispatcher Chief Relationship Specialty Start Date End Date Dulce Maria Alonzo FNP [address] [place] [address] PCP - General Nurse Practitioner Family 08/01/20 documented as of this encounter
--- OUTSIDE RECORDS SUMMARY | 2025-04-30 13:33 | XMS_ITS | Encounter Summary ---
Author Organization [facility] Address [address] [place] [address] Care Team Providers Care Director Of Manufacturing Operations Name Role Phone Dulce Maria Alonzo NASCAR PIT CREW PERSON Primary Care Provider Encounter Details Date Type Department Care Team (Late st Contact Info) Description 09/09/2020 Lab Requisition [facility] Services [address] [place] [address] Mauro Hawkins, [address] [facility] [address] [place] [address] Social History Tobacco Use Types Packs/Day Years Used Date Smoking Tobacco: Former Cigarettes 2 60 0 05/14/1946 - 05/14/2008 Smokeless Tobacco: Never Alcohol Use Standard Drinks/Week Comments No 0 (1 standard drink = 0.6 oz pur e alcohol) Sex and Gender Information Value Date Recorded Sex Assigned at Not on file Legal Sex Male 3:16 AM ANTIQUE REFINISHER Gender Identity Not on file Sexual Orientation Not on file COVID-19 Exposure Response Date Recorded In the last month, have you been in contact with someone who was confirmed or suspected to have Coronavirus / COVID-19? No / Unsure 08/15/2020 1:12 PM ANTIQUE REFINISHER documented as of this encounter Plan of Treatment Not on file documented as of this encounter Procedures Procedure Name Priority Date/Time Associated Diagnosis Comments BASIC METABOLIC PANEL Routine 09/09/2020 8:25 AM ANTIQUE REFINISHER documented in this encounter Results * (ABNORMAL) BASIC METABOLIC PANEL (09/09/2020 8:25 AM ANTIQUE REFINISHER) SODIUM 130(L) 136 - 145 mmol/L 09/09/2020 5:56 PM [facility] POTASSIUM 4.7 3.5 - 5.1 mmol/L 09/09/2020 5:56 PM [facility] CHLORIDE 96(L) 98 - 107 mmol/L 09/09/2020 5:56 PM [facility] CO2 20(L) 22 - 29 mmol/L 09/09/2020 5:56 PM [facility] CALCIUM 8.8 8.8 - 10.2 mg/dL 09/09/2020 5:56 PM [facility] BUN 11 8 - 23 mg/dL 09/09/2020 5:56 PM [facility] CREATININE 0.69 0.67 - 1.17 mg/dL 09/09/2020 5:56 PM [facility] Comment:The GFR result is no t clinically significant on patients <18 or >70 years of age. GLUCOSE 192(H) 74 - 99 mg/dL 09/09/2020 5:56 PM [facility] GFR >60 mL/min/1.7 3 sq meter 09/09/2020 5:56 PM [facility] Comment: eGFR has not been validated for use in the elderly (> 70 years of age), women, patients with serious co-morbid conditions, or persons with extremes of body size or muscle mass and should also be interpreted with caution in patients with acute kidney failure, dialysis dependent patients, patients reporting exceptional dietary intake (e.g. vegetarian diet, high protein diets, creatine supplementation), and patients with severe liver disease. Based on National Kidney Disease Education Program If patient is , please refer to the GFR result. GFR, >60 mL/min/1.7 3 sq meter 09/09/2020 5:56 PM [facility] ANION GAP 14 9 - 20 mmol/L 09/09/2020 5:56 PM [facility] Blood Collection / Unknown 09/09/2020 8:25 AM ANTIQUE REFINISHER 09/09/2020 5:35 PM ANTIQUE REFINISHER aMuro Hawkins DO CHEMISTRY ORDERABLES Final Result [facility] [address] [place] [address] documented in this encounter Visit Diagnoses Not on filedocumented in this encounter Care Teams Director Of Manufacturing Operations Relationship Specialty Start Date End Date Dulce Maria Alonzo FNP [address] [place] [address] PCP - General Nurse Practitioner Family 08/01/20 documented as of this encounter
--- OUTSIDE RECORDS SUMMARY | 2025-04-30 13:33 | XMS_ITS | Encounter Summary ---
Author Organization [facility] Address [address] [place] [address] Care Team Providers Care Coal Tower Operator Name Role Phone Dulce Maria Alonzo INTERACTIVE MEDIA PROJECT MANAGER Primary Care Provider Encounter Details Date Type Department Care Team (Late st Contact Info) Description 11/07/2007 Outpatient Historical HIS IN BED Carmella Santiago MD NO ADDRESS ON FILE Social History Tobacco Use Types Packs/Day Years Used Date Smoking Tobacco: Never Assessed Sex and Gender Information Value Date Recorded Sex Assigned at Not on file Legal Sex Male 3:16 AM HOSPICE MUSIC THERAPIST Gender Identity Not on file Sexual Orientation Not on file documented as of this encounter Plan of Treatment Pending Results Name Type Priority Associated Diagnoses Date /Time PRODUCT PACKED CELLS Blood Bank Stat 10/15 4:48 PM HOSPICE MUSIC THERAPIST Scheduled Orders Name Type Priority Associated Diagnoses Orde r Schedule PRODUCT PACKED CELLS Blood Bank Routine Orde red: 11/09/2007 documented as of this encounter Procedures Procedure Name Priority Date/Time Associated Diagnosis Comments XR CHEST PA OR AP 1 VW Routine 11/16/2007 7:55 AM HOSPICE MUSIC THERAPIST CBC WITH DIFFERENTIAL Routine 11/16/2007 4:40 AM HOSPICE MUSIC THERAPIST PROTIME-INR Routine 11/16/2007 4:40 AM HOSPICE MUSIC THERAPIST BASIC METABOLIC PANEL Routine 11/16/2007 4:40 AM HOSPICE MUSIC THERAPIST CBC WITH DIFFERENTIAL Routine 11/15/2007 4:25 AM HOSPICE MUSIC THERAPIST PTT Routine 11/15/2007 4:25 AM HOSPICE MUSIC THERAPIST PROTIME-INR Routine 11/15/2007 4:25 AM HOSPICE MUSIC THERAPIST BASIC METABOLIC PANEL Routine 11/15/2007 4:25 AM HOSPICE MUSIC THERAPIST XR CHEST PA AND LATERAL 2 VW Routine 11/14/2007 6:46 PM HOSPICE MUSIC THERAPIST BLOOD CULTURE Routine 11/14/2007 2:45 PM HOSPICE MUSIC THERAPIST BLOOD CULTURE Routine 11/14/2007 2:40 PM HOSPICE MUSIC THERAPIST URINALYSIS MICROSCOPY ONLY Routine 11/14/2007 11:30 AM HOSPICE MUSIC THERAPIST URINALYSIS W/REFLEX MICROSCOPIC Routine 11/14/2007 11:30 AM HOSPICE MUSIC THERAPIST CBC WITH DIFFERENTIAL Routine 11/14/2007 4:30 AM HOSPICE MUSIC THERAPIST PTT Routine 11/14/2007 4:30 AM HOSPICE MUSIC THERAPIST PROTIME-INR Routine 11/14/2007 4:30 AM HOSPICE MUSIC THERAPIST PTT Routine 11/13/2007 5:05 AM HOSPICE MUSIC THERAPIST PROTIME-INR Routine 11/13/2007 5:05 AM HOSPICE MUSIC THERAPIST CBC WITHOUT DIFFERENTIAL Routine 11/13/2007 5:05 AM HOSPICE MUSIC THERAPIST PTT Routine 11/12/2007 7:10 PM HOSPICE MUSIC THERAPIST PTT Stat 11/12/2007 8:23 AM HOSPICE MUSIC THERAPIST PROTIME-INR Routine 11/12/2007 3:11 AM HOSPICE MUSIC THERAPIST CBC WITHOUT DIFFERENTIAL Routine 11/12/2007 3:11 AM HOSPICE MUSIC THERAPIST BASIC METABOLIC PANEL Routine 11/12/2007 3:11 AM HOSPICE MUSIC THERAPIST CBC WITH DIFFERENTIAL Routine 11/11/2007 3:58 AM HOSPICE MUSIC THERAPIST PTT Routine 11/11/2007 3:58 AM HOSPICE MUSIC THERAPIST PROTIME-INR Routine 11/11/2007 3:58 AM HOSPICE MUSIC THERAPIST BASIC METABOLIC PANEL Routine 11/11/2007 3:58 AM HOSPICE MUSIC THERAPIST PTT Routine 11/10/2007 7:50 PM HOSPICE MUSIC THERAPIST URINALYSIS MICROSCOPY ONLY Routine 11/10/2007 1:08 PM HOSPICE MUSIC THERAPIST BLOOD CULTURE Routine 11/10/2007 1:08 PM HOSPICE MUSIC THERAPIST BLOOD CULTURE Routine 11/10/2007 1:08 PM HOSPICE MUSIC THERAPIST URINALYSIS W/REFLEX MICROSCOPIC Routine 11/10/2007 1:08 PM HOSPICE MUSIC THERAPIST URINE CULTURE Routine 11/10/2007 1:08 PM HOSPICE MUSIC THERAPIST XR CHEST PA OR AP 1 VW Routine 11/10/2007 5:25 AM HOSPICE MUSIC THERAPIST PT AND APTT Routine 11/10/2007 3:10 AM HOSPICE MUSIC THERAPIST CBC WITH DIFFERENTIAL Routine 11/10/2007 3:10 AM HOSPICE MUSIC THERAPIST BASIC METABOLIC PANEL Routine 11/10/2007 3:10 AM HOSPICE MUSIC THERAPIST CBC WITH DIFFERENTIAL Stat 11/09/2007 7:03 PM HOSPICE MUSIC THERAPIST PTT Stat 11/09/2007 7:03 PM HOSPICE MUSIC THERAPIST PROTIME-INR Stat 11/09/2007 7:03 PM HOSPICE MUSIC THERAPIST BASIC METABOLIC PANEL Stat 11/09/2007 7:03 PM HOSPICE MUSIC THERAPIST URINALYSIS MICROSCOPY ONLY Routine 11/09/2007 1:14 PM HOSPICE MUSIC THERAPIST URINALYSIS W/REFLEX MICROSCOPIC Routine 11/09/2007 1:14 PM HOSPICE MUSIC THERAPIST URINE CULTURE Routine 11/09/2007 1:14 PM HOSPICE MUSIC THERAPIST PT AND APTT Routine 11/09/2007 4:22 AM HOSPICE MUSIC THERAPIST CBC WITH DIFFERENTIAL Routine 11/09/2007 4:22 AM HOSPICE MUSIC THERAPIST FIBRINOGEN QUANTITATIVE Routine 11/09/2007 4:22 AM HOSPICE MUSIC THERAPIST BASIC METABOLIC PANEL Routine 11/09/2007 4:22 AM HOSPICE MUSIC THERAPIST FIBRINOGEN QUANTITATIVE Routine 11/09/2007 1:02 AM HOSPICE MUSIC THERAPIST FIBRINOGEN QUANTITATIVE Routine 11/08/2007 9:10 PM HOSPICE MUSIC THERAPIST FIBRINOGEN QUANTITATIVE Routine 11/08/2007 4:17 PM HOSPICE MUSIC THERAPIST FIBRINOGEN QUANTITATIVE Stat 11/08/2007 11:22 AM HOSPICE MUSIC THERAPIST CBC WITH DIFFERENTIAL Routine 11/08/2007 4:08 AM HOSPICE MUSIC THERAPIST PTT Routine 11/08/2007 4:08 AM HOSPICE MUSIC THERAPIST BASIC METABOLIC PANEL Routine 11/08/2007 4:08 AM HOSPICE MUSIC THERAPIST FIBRINOGEN QUANTITATIVE Routine 11/08/2007 1:34 AM HOSPICE MUSIC THERAPIST MRSA CULTURE Routine 11/07/2007 10:25 PM HOSPICE MUSIC THERAPIST FIBRINOGEN QUANTITATIVE Stat 11/07/2007 9:12 PM HOSPICE MUSIC THERAPIST CBC WITHOUT DIFFERENTIAL Routine 11/07/2007 9:12 PM HOSPICE MUSIC THERAPIST BASIC METABOLIC PANEL Routine 11/07/2007 9:12 PM HOSPICE MUSIC THERAPIST ABORH TYPING Stat 11/07/2007 4:48 PM HOSPICE MUSIC THERAPIST CBC WITH DIFFERENTIAL Stat 11/07/2007 4:48 PM HOSPICE MUSIC THERAPIST PROTIME-INR Stat 11/07/2007 4:48 PM HOSPICE MUSIC THERAPIST BLOOD BANK ANTIBODY SCREEN Stat 11/07/2007 4:48 PM HOSPICE MUSIC THERAPIST BASIC METABOLIC PANEL Stat 11/07/2007 4:48 PM HOSPICE MUSIC THERAPIST documented in this encounter Results * XR CHEST PA OR AP (11/16/2007 7:55 AM HOSPICE MUSIC THERAPIST) Anatomical Region Laterality Modality Chest Other 11/16/2007 7:55 AM HOSPICE MUSIC THERAPIST Narrative 11/16/2007 7:55 AM HOSPICE MUSIC THERAPIST Comparison: 11/14/2007.~~The heart size and pulmonary vasculature are normal. No acute infiltrate or effusion. Mild~hyperinflation consistent with COPD. No acute osseous abnormality.~~Impression:~1. COPD.~-~ Procedure Note Enrique Loza - 11/17/2007 Comparison: 11/14/2007.~~The heart size and pulmonary vasculature arenormal. No acute infiltrate or effusion. Mild~hyperinflation consistent with COPD. No acute osseousabnormality.~~Impression:~1. COPD.~-~ us Carmella Santiago MD DIAGNOSTIC IMAGING ORD ERABLES Final Result * (ABNORMAL) PROTIME-INR (11/16/2007 4:40 AM HOSPICE MUSIC THERAPIST) INR 2.2 [facility] Comment: Expected Values for INR: DVT/PE Goal INR 2.5; range 2.0 - 3.0 Valve Replacement Tissue Goal INR 2.5; range 2.0 - 3.0 Mechanical Goal INR 3.0; range 2.5 - 3.5 POST-NY Goal INR 2.5; range 2.0 - 3.0 or Goal 3.0; range 2.5 - 3.5 Atrial Fibrillation Goal INR 2.5; range 2.0 - 3.0 Ischemic Stroke Goal INR 2.5; range 2.0 - 3.0 For additional information see Guidelines for Anticoagulation available from the pharmacy [facility] Boateng. [phone] PROTIME 26.5(H) 12.8 - 15.8 Secs [facility] Comment:As of 2007 not e change in normal range. Blood specimen (specimen) 11/16/2007 4:40 AM HOSPICE MUSIC THERAPIST 11/16/2007 5:12 AM HOSPICE MUSIC THERAPIST us Carmella Santiago MD HEMATOLOGY ORDERABLES Final Result [facility] [address] [place] [address] * (ABNORMAL) CBC WITH DIFFERENTIAL (11/16/2007 4:40 AM HOSPICE MUSIC THERAPIST) MCV 89.5 84.0 - 103.0 Fl [facility] BASOPHILS 0.8 0.0 - 1.0 % [facility] MPV 9.2 8.9 - 12.8 Fl [facility] BASOPHILS ABSOLUTE 0.1 0.0 - 0.2 K/ul [facility] HEMOGLOBIN 12.0(L) 14.0 - 18.0 g/dL [facility] MONOCYTES 18.0(H) 2.0 - 10.0 % [facility] RDW 13.8 11.0 - 14.5 % [facility] MONOCYTE ABSOLUTE 1.1(H) 0.1 - 0.6 K/ul [facility] WBC 6.2 4.8 - 10.8 K/ul [facility] NEUTROPHILS 54.9 42.2 - 75.2 % [facility] MCH 30.7 27.0 - 34.0 pg [facility] NEUTROPHIL ABSOLUTE 3.4 2.0 - 8.0 K/ul [facility] HEMATOCRIT 35.0(L) 41.0 - 53.0 % [facility] PLATELETS 262 140 - 440 K/ul [facility] EOSINOPHIL ABSOLUTE 0.1 0.0 - 0.7 K/ul [facility] EOSINOPHILS 2.1 0.0 - 7.0 % [facility] RBC 3.91(L) 4.60 - 6.20 Mil/ul [facility] MCHC 34.3 30.0 - 35.0 g/dL [facility] LYMPHOCYTE ABSOLUTE 1.5 1.2 - 4.0 K/ul [facility] LYMPHOCYTES 24.2 24.0 - 44.0 % [facility] Blood specimen (specimen) 11/16/2007 4:40 AM HOSPICE MUSIC THERAPIST 11/16/2007 5:12 AM HOSPICE MUSIC THERAPIST Carmella Santiago MD HEMATOLOGY ORDERABLES Final Result Performing Organization Address [facility] de Phone Number [facility] [address] [place] [address] * (ABNORMAL) BASIC METABOLIC PANEL (11/16/2007 4:40 AM HOSPICE MUSIC THERAPIST) CREATININE 1.0 0.7 - 1.5 mg/dL [facility] CALCIUM 9.1 8.4 - 10.5 mg/dL [facility] GLUCOSE 107 70 - 110 mg/dL [facility] CHLORIDE 98 95 - 110 mEq/L [facility] SODIUM 127(L) 136 - 145 mEq/L [facility] ANION GAP 11 9 - 20 mEq/L [facility] BUN 14 9 - 20 mg/dL [facility] CO2 22 22 - 32 mmol/l [facility] OSMOLALITY, CALCULATED 264(L) 275 - 295 mOsm/Kg [facility] POTASSIUM 3.8 3.5 - 5.0 mEq/L [facility] Blood specimen (specimen) 11/16/2007 4:40 AM HOSPICE MUSIC THERAPIST 11/16/2007 5:12 AM HOSPICE MUSIC THERAPIST Carmella Santiago MD CHEMISTRY ORDERABLES F inal Result Performing Organization Address [facility] de Phone Number [facility] [address] [place] [address] * (ABNORMAL) BASIC METABOLIC PANEL (11/15/2007 4:25 AM HOSPICE MUSIC THERAPIST) CO2 24 22 - 32 mmol/l [facility] OSMOLALITY, CALCULATED 273(L) 275 - 295 mOsm/Kg [facility] CREATININE 1.1 0.7 - 1.5 mg/dL [facility] SODIUM 132(L) 136 - 145 mEq/L [facility] GLUCOSE 105 70 - 110 mg/dL [facility] CALCIUM 9.5 8.4 - 10.5 mg/dL [facility] POTASSIUM 4.2 3.5 - 5.0 mEq/L [facility] BUN 11 9 - 20 mg/dL [facility] ANION GAP 13 9 - 20 mEq/L [facility] CHLORIDE 99 95 - 110 mEq/L [facility] Blood specimen (specimen) 11/15/2007 4:25 AM HOSPICE MUSIC THERAPIST 11/15/2007 4:39 AM HOSPICE MUSIC THERAPIST us Carmella Santiago MD CHEMISTRY ORDERABLES E dited Performing Organization Address City/State/[facility] Co de Phone Number [facility] [address] [place] [address] * (ABNORMAL) CBC WITH DIFFERENTIAL (11/15/2007 4:25 AM HOSPICE MUSIC THERAPIST) HEMATOCRIT 35.7(L) 41.0 - 53.0 % [facility] EOSINOPHILS 1.6 0.0 - 7.0 % [facility] PLATELETS 233 140 - 440 K/ul [facility] EOSINOPHIL ABSOLUTE 0.1 0.0 - 0.7 K/ul [facility] RBC 3.94(L) 4.60 - 6.20 Mil/ul [facility] LYMPHOCYTES 19.3(L) 24.0 - 44.0 % [facility] MCHC 33.9 30.0 - 35.0 g/dL [facility] LYMPHOCYTE ABSOLUTE 0.9(L) 1.2 - 4.0 K/ul [facility] MCV 90.6 84.0 - 103.0 Fl [facility] MPV 9.2 8.9 - 12.8 Fl [facility] BASOPHILS ABSOLUTE 0.0 0.0 - 0.2 K/ul [facility] BASOPHILS 0.9 0.0 - 1.0 % [facility] HEMOGLOBIN 12.1(L) 14.0 - 18.0 g/dL [facility] RDW 13.5 11.0 - 14.5 % [facility] MONOCYTE ABSOLUTE 0.5 0.1 - 0.6 K/ul [facility] MONOCYTES 12.0(H) 2.0 - 10.0 % [facility] WBC 4.5(L) 4.8 - 10.8 K/ul [facility] MCH 30.7 27.0 - 34.0 pg [facility] NEUTROPHIL ABSOLUTE 3.0 2.0 - 8.0 K/ul [facility] NEUTROPHILS 66.2 42.2 - 75.2 % [facility] Blood specimen (specimen) 11/15/2007 4:25 AM HOSPICE MUSIC THERAPIST 11/15/2007 4:39 AM HOSPICE MUSIC THERAPIST us Carmella Santiago MD HEMATOLOGY ORDERABLES Final Result Performing Organization Address City/State/[facility] Co de Phone Number [facility] [address] [place] [address] * (ABNORMAL) PROTIME-INR (11/15/2007 4:25 AM HOSPICE MUSIC THERAPIST) PROTIME 28.1(H) 12.8 - 15.8 Secs [facility] Comment:As of 2007 not e change in normal range. INR 2.4 [facility] Comment: Expected Values for INR: DVT/PE Goal INR 2.5; range 2.0 - 3.0 Valve Replacement Tissue Goal INR 2.5; range 2.0 - 3.0 Mechanical Goal INR 3.0; range 2.5 - 3.5 POST-[place] Goal INR 2.5; range 2.0 - 3.0 or Goal 3.0; range 2.5 - 3.5 Atrial Fibrillation Goal INR 2.5; range 2.0 - 3.0 Ischemic Stroke Goal INR 2.5; range 2.0 - 3.0 For additional information see Guidelines for Anticoagulation available from the pharmacy [facility] Boateng [phone] Blood specimen (specimen) 11/15/2007 4:25 AM HOSPICE MUSIC THERAPIST 11/15/2007 4:39 AM HOSPICE MUSIC THERAPIST Carmella Santiago MD HEMATOLOGY ORDERABLES Final Result Performing Organization Address [facility] Phone Number [facility] [place] [address] * (ABNORMAL) PTT (11/15/2007 4:25 AM HOSPICE MUSIC THERAPIST) PTT 56.0(H) 21.6 - 35.6 Secs [facility] Comment: Therapeutic Range: Hi-level PE/DVT heparin protocol 80.1 -95.0 sec Lo-level PE/DVT heparin protocol 67.1 - 80.0 sec Cardiac Heparin Protocol 67.1 - 85.0 sec Neuro Heparin Protocol 67.1 - 80.0 sec As of 08/19/2006 note change in APTT Normal Range. Blood specimen (specimen) 11/15/2007 4:25 AM HOSPICE MUSIC THERAPIST 11/15/2007 4:39 AM HOSPICE MUSIC THERAPIST Carmella Santiago MD HEMATOLOGY ORDERABLES Final Result Performing Organization Address [facility] Phone Number [facility] [address] [place] [phone] * XR CHEST PA AND LATERAL (11/14/2007 6:46 PM HOSPICE MUSIC THERAPIST) Anatomical Region Laterality Modality Chest Other 11/14/2007 6:46 PM HOSPICE MUSIC THERAPIST Narrative 11/14/2007 6:46 PM HOSPICE MUSIC THERAPIST Exam: Chest - PA and Lateral Date/Time of Exam: Nov 14, 2007 6:46:55 PM History: Fever. Findings: Today's study compared to 11/10/2007. Midline structures stable. Lungs again show changes of prominent obstructive pulmonary disease. Patchy interstitial opacities in the midlung bassett have cleared. No definite active airspace or pleural disease detected on today's study. No pneumothorax. Impression: Interval clearing of patchy perihilar interstitial infiltrates. Lungs now appear clear with baseline changes of moderate to prominent chronic obstructive pulmonary disease underlying. - Procedure Note Page, Nic Ramirez - 11/14/2007 Exam: Chest - PA and Lateral Date/Time of Exam: Nov 14, 2007 6:46:55 PM History: Fever. Findings: Today's study compared to 11/10/2007. Midline structures stable. Lungs again show changes of prominentobstructive pulmonary disease. Patchy interstitial opacities in the midlung bassett have cleared. No definiteactive airspace or pleural disease detected on today's study. No pneumothorax. Impression: Interval clearing of patchy perihilar interstitialinfiltrates. Lungs now appear clear with baseline changes of moderate to prominent chronic obstructivepulmonary disease underlying. - Carmella Santiago MD DIAGNOSTIC IMAGING ORD ERABLES Final Result * BLOOD CULTURE (11/14/2007 2:45 PM HOSPICE MUSIC THERAPIST) FINAL REPORT No growth INTERFA CE SYSTEM Blood specimen (specimen) 11/14/2007 2:45 PM HOSPICE MUSIC THERAPIST 11/14/2007 4:15 PM HOSPICE MUSIC THERAPIST Carmella Santiago MD MICROBIOLOGY - GENERAL ORDERABLES Final Result Performing Organization Address City/[facility] Co de Phone Number INTERFACE SYSTEM Refer to clinic/hospital department * BLOOD CULTURE (11/14/2007 2:40 PM HOSPICE MUSIC THERAPIST) FINAL REPORT No growth INTERFA CE SYSTEM Blood specimen (specimen) 11/14/2007 2:40 PM HOSPICE MUSIC THERAPIST 11/14/2007 4:15 PM HOSPICE MUSIC THERAPIST Carmella Santiago MD MICROBIOLOGY - GENERAL ORDERABLES Final Result Performing Organization Address City/[facility] Co de Phone Number INTERFACE SYSTEM Refer to clinic/hospital department * (ABNORMAL) URINALYSIS MICROSCOPY ONLY (11/14/2007 11:30 AM HOSPICE MUSIC THERAPIST) BACTERIA UA None Seen None Seen [facility] HYALINE CAST None Seen 0 - [address] [facility] WBC URINE None Seen 0 - 2 [facility] RBC UA 16-25(A) 0 - 2 [facility] Urine specimen (specimen) 11/14/2007 11:30 AM HOSPICE MUSIC THERAPIST 11/14/2007 11:30 AM HOSPICE MUSIC THERAPIST Narrative [facility] - 11/14/2007 11:46 AM HOSPICE MUSIC THERAPIST Microscopic ordered by policy Carmella Santiago MD URINE ORDERABLES Final Result Performing Organization Address [facility] de Phone Number [facility] [address] [place] [address] * (ABNORMAL) URINALYSIS (11/14/2007 11:30 AM HOSPICE MUSIC THERAPIST) Pathologist [facility] UROBILINOGEN UA 0.2 0.2 [facility] CLARITY UA Clear Clear [facility] SPECIFIC GRAVITY UA 1.015 <=1.005 [facility] GLUCOSE UA NEGATIVE NEGATIVE [facility] PH UA 7.0 5.0 - 9.0 [facility] BILIRUBIN UA NEGATIVE NEGATIVE [facility] LEUKOCYTE ESTERASE UA NEGATIVE NEGATIVE [facility] KETONES UA NEGATIVE NEGATIVE [facility] MICRO EXAM Yes(A) No [facility] COLOR UA Yellow Straw [facility] PROTEIN UA NEGATIVE NEGATIVE [facility] BLOOD UA Large(A) NEGATIVE [facility] NITRITE UA NEGATIVE NEGATIVE [facility] Urine, clean catch 11/14/2007 11:30 AM HOSPICE MUSIC THERAPIST 11/14/2007 11:30 AM HOSPICE MUSIC THERAPIST Carmella Santiago MD URINE ORDERABLES Final Result Performing Organization Address [facility] de Phone Number [facility] [address] [place] [address] * (ABNORMAL) CBC WITH DIFFERENTIAL (11/14/2007 4:30 AM HOSPICE MUSIC THERAPIST) LYMPHOCYTES 5.5(L) 24.0 - 44.0 % [facility] MCHC 34.5 30.0 - 35.0 g/dL [facility] LYMPHOCYTE ABSOLUTE 0.5(L) 1.2 - 4.0 K/ul [facility] MCV 89.6 84.0 - 103.0 Fl [facility] MPV 9.4 8.9 - 12.8 Fl [facility] BASOPHILS ABSOLUTE 0.0 0.0 - 0.2 K/ul [facility] BASOPHILS 0.3 0.0 - 1.0 % [facility] HEMOGLOBIN 12.2(L) 14.0 - 18.0 g/dL [facility] RDW 13.6 11.0 - 14.5 % [facility] MONOCYTE ABSOLUTE 0.6 0.1 - 0.6 K/ul [facility] MONOCYTES 6.7 2.0 - 10.0 % [facility] WBC 9.0 4.8 - 10.8 K/ul [facility] MCH 30.9 27.0 - 34.0 pg [facility] NEUTROPHIL ABSOLUTE 7.7 2.0 - 8.0 K/ul [facility] NEUTROPHILS 85.6(H) 42.2 - 75.2 % [facility] HEMATOCRIT 35.4(L) 41.0 - 53.0 % [facility] EOSINOPHILS 1.9 0.0 - 7.0 % [facility] PLATELETS 261 140 - 440 K/ul [facility] EOSINOPHIL ABSOLUTE 0.2 0.0 - 0.7 K/ul [facility] RBC 3.95(L) 4.60 - 6.20 Mil/ul [facility] Blood specimen (specimen) 11/14/2007 4:30 AM HOSPICE MUSIC THERAPIST 11/14/2007 4:55 AM HOSPICE MUSIC THERAPIST us Carmella Santiago MD HEMATOLOGY ORDERABLES Final Result [facility] [address] [place] [address] * (ABNORMAL) PROTIME-INR (11/14/2007 4:30 AM HOSPICE MUSIC THERAPIST) PROTIME 25.1(H) 12.8 - 15.8 Secs [facility] Comment:As of 2007 not e change in normal range. INR 2.1 [facility] Comment: Expected Values for INR: DVT/PE Goal INR 2.5; range 2.0 - 3.0 Valve Replacement Tissue Goal INR 2.5; range 2.0 - 3.0 Mechanical Goal INR 3.0; range 2.5 - 3.5 POST-[place] Goal INR 2.5; range 2.0 - 3.0 or Goal 3.0; range 2.5 - 3.5 Atrial Fibrillation Goal INR 2.5; range 2.0 - 3.0 Ischemic Stroke Goal INR 2.5; range 2.0 - 3.0 For additional information see Guidelines for Anticoagulation available from the pharmacy [facility] Boat[facility]. [phone] Blood specimen (specimen) 11/14/2007 4:30 AM HOSPICE MUSIC THERAPIST 11/14/2007 4:55 AM HOSPICE MUSIC THERAPIST Carmella Santiago MD HEMATOLOGY ORDERABLES Final Result Performing Organization Address City/State/[facility] Co de Phone Number [facility] [address] [place] [address] * (ABNORMAL) PTT (11/14/2007 4:30 AM HOSPICE MUSIC THERAPIST) PTT 78.0(H) 21.6 - 35.6 Secs [facility] Comment: Therapeutic Range: Hi-level PE/DVT heparin protocol 80.1 -95.0 sec Lo-level PE/DVT heparin protocol 67.1 - 80.0 sec Cardiac Heparin Protocol 67.1 - 85.0 sec Neuro Heparin Protocol 67.1 - 80.0 sec As of 08/19/2006 note change in APTT Normal Range. Blood specimen (specimen) 11/14/2007 4:30 AM HOSPICE MUSIC THERAPIST 11/14/2007 4:55 AM HOSPICE MUSIC THERAPIST Carmella Santiago MD HEMATOLOGY ORDERABLES Final Result Performing Organization Address [facility] de Phone Number [facility] [address] [place] [address] * (ABNORMAL) PTT (11/13/2007 5:05 AM HOSPICE MUSIC THERAPIST) [facility] PTT 67.9(H) 21.6 - 35.6 Secs [facility] Comment: Therapeutic Range: Hi-level PE/DVT heparin protocol 80.1 -95.0 sec Lo-level PE/DVT heparin protocol 67.1 - 80.0 sec Cardiac Heparin Protocol 67.1 - 85.0 sec Neuro Heparin Protocol 67.1 - 80.0 sec As of 08/19/2006 note change in APTT Normal Range. Blood specimen (specimen) 11/13/2007 5:05 AM HOSPICE MUSIC THERAPIST 11/13/2007 5:12 AM HOSPICE MUSIC THERAPIST Carmella Santiago MD HEMATOLOGY ORDERABLES Final Result Performing Organization Address [facility] de Phone Number [facility] [address] [place] [address] * (ABNORMAL) CBC WITHOUT DIFFERENTIAL (11/13/2007 5:05 AM HOSPICE MUSIC THERAPIST) [facility] BASOPHILS ABSOLUTE 0.0 0.0 - 0.2 K/ul [facility] HEMOGLOBIN 11.5(L) 14.0 - 18.0 g/dL [facility] MONOCYTES 10.2(H) 2.0 - 10.0 % [facility] RDW 13.8 11.0 - 14.5 % [facility] MONOCYTE ABSOLUTE 0.7(H) 0.1 - 0.6 K/ul [facility] WBC 6.5 4.8 - 10.8 K/ul [facility] NEUTROPHILS 59.3 42.2 - 75.2 % [facility] MCH 30.6 27.0 - 34.0 pg [facility] NEUTROPHIL ABSOLUTE 3.9 2.0 - 8.0 K/ul [facility] HEMATOCRIT 33.8(L) 41.0 - 53.0 % [facility] PLATELETS 229 140 - 440 K/ul [facility] EOSINOPHIL ABSOLUTE 0.4 0.0 - 0.7 K/ul [facility] EOSINOPHILS 6.7 0.0 - 7.0 % [facility] RBC 3.76(L) 4.60 - 6.20 Mil/ul [facility] MCHC 34.0 30.0 - 35.0 g/dL [facility] LYMPHOCYTE ABSOLUTE 1.5 1.2 - 4.0 K/ul [facility] LYMPHOCYTES 23.2(L) 24.0 - 44.0 % [facility] MCV 89.9 84.0 - 103.0 Fl [facility] BASOPHILS 0.6 0.0 - 1.0 % [facility] MPV 9.4 8.9 - 12.8 Fl [facility] Blood specimen (specimen) 11/13/2007 5:05 AM HOSPICE MUSIC THERAPIST 11/13/2007 5:12 AM HOSPICE MUSIC THERAPIST us Carmella Santiago MD HEMATOLOGY ORDERABLES Final Result [facility] [address] [place] [address] * (ABNORMAL) PROTIME-INR (11/13/2007 5:05 AM HOSPICE MUSIC THERAPIST) PROTIME 23.5(H) 12.8 - 15.8 Secs [facility] Comment:As of 2007 not e change in normal range. INR 1.9 [facility] Comment: Expected Values for INR: DVT/PE Goal INR 2.5; range 2.0 - 3.0 Valve Replacement Tissue Goal INR 2.5; range 2.0 - 3.0 Mechanical Goal INR 3.0; range 2.5 - 3.5 POST-[place] Goal INR 2.5; range 2.0 - 3.0 or Goal 3.0; range 2.5 - 3.5 Atrial Fibrillation Goal INR 2.5; range 2.0 - 3.0 Ischemic Stroke Goal INR 2.5; range 2.0 - 3.0 For additional information see Guidelines for Anticoagulation available from the pharmacy Emilia Boateng. [phone] Blood specimen (specimen) 11/13/2007 5:05 AM HOSPICE MUSIC THERAPIST 11/13/2007 5:12 AM HOSPICE MUSIC THERAPIST Carmella Santiago MD HEMATOLOGY ORDERABLES Final Result Performing Organization Address [facility] Phone Number [address] [address] * (ABNORMAL) PTT (11/12/2007 7:10 PM HOSPICE MUSIC THERAPIST) PTT 77.2(H) 21.6 - 35.6 Secs [facility] Comment: Therapeutic Range: Hi-level PE/DVT heparin protocol 80.1 -95.0 sec Lo-level PE/DVT heparin protocol 67.1 - 80.0 sec Cardiac Heparin Protocol 67.1 - 85.0 sec Neuro Heparin Protocol 67.1 - 80.0 sec As of 08/19/2006 note change in APTT Normal Range. Blood specimen (specimen) 11/12/2007 7:10 PM HOSPICE MUSIC THERAPIST 11/12/2007 7:34 PM HOSPICE MUSIC THERAPIST Carmella Santiago MD HEMATOLOGY ORDERABLES Final Result Performing Organization Address [facility] Phone Number [address] [address] * (ABNORMAL) PTT (11/12/2007 8:23 AM HOSPICE MUSIC THERAPIST) PTT 101.2(H) 21.6 - 35.6 Secs [facility] Comment: Therapeutic Range: Hi-level PE/DVT heparin protocol 80.1 -95.0 sec Lo-level PE/DVT heparin protocol 67.1 - 80.0 sec Cardiac Heparin Protocol 67.1 - 85.0 sec Neuro Heparin Protocol 67.1 - 80.0 sec As of 08/19/2006 note change in APTT Normal Range. Blood specimen (specimen) 11/12/2007 8:23 AM HOSPICE MUSIC THERAPIST 11/12/2007 8:59 AM HOSPICE MUSIC THERAPIST us Carmella Santiago MD HEMATOLOGY ORDERABLES Final Result [facility] [address] [place] [address] * (ABNORMAL) CBC WITHOUT DIFFERENTIAL (11/12/2007 3:11 AM HOSPICE MUSIC THERAPIST) HEMOGLOBIN 11.1(L) 14.0 - 18.0 g/dL [facility] RDW 13.7 11.0 - 14.5 % [facility] MONOCYTE ABSOLUTE 0.9(H) 0.1 - 0.6 K/ul [facility] MONOCYTES 10.9(H) 2.0 - 10.0 % [facility] WBC 8.2 4.8 - 10.8 K/ul [facility] MCH 30.6 27.0 - 34.0 pg [facility] NEUTROPHIL ABSOLUTE 5.4 2.0 - 8.0 K/ul [facility] NEUTROPHILS 66.1 42.2 - 75.2 % [facility] HEMATOCRIT 33.0(L) 41.0 - 53.0 % [facility] EOSINOPHILS 3.2 0.0 - 7.0 % [facility] PLATELETS 168 140 - 440 K/ul [facility] EOSINOPHIL ABSOLUTE 0.3 0.0 - 0.7 K/ul [facility] RBC 3.63(L) 4.60 - 6.20 Mil/ul [facility] LYMPHOCYTES 19.3(L) 24.0 - 44.0 % [facility] MCHC 33.6 30.0 - 35.0 g/dL [facility] LYMPHOCYTE ABSOLUTE 1.6 1.2 - 4.0 K/ul [facility] MCV 90.9 84.0 - 103.0 Fl [facility] MPV 9.7 8.9 - 12.8 Fl [facility] BASOPHILS ABSOLUTE 0.0 0.0 - 0.2 K/ul [facility] BASOPHILS 0.5 0.0 - 1.0 % [facility] Blood specimen (specimen) 11/12/2007 3:11 AM HOSPICE MUSIC THERAPIST 11/12/2007 3:11 AM HOSPICE MUSIC THERAPIST Carmella Santiago MD HEMATOLOGY ORDERABLES Final Result Performing Organization Address [facility] Co de Phone Number [facility] [address] [place] [address] * (ABNORMAL) BASIC METABOLIC PANEL (11/12/2007 3:11 AM HOSPICE MUSIC THERAPIST) BUN 9 9 - 20 mg/dL [facility] CO2 24 22 - 32 mmol/l [facility] OSMOLALITY, CALCULATED 276 275 - 295 mOsm/Kg [facility] POTASSIUM 4.0 3.5 - 5.0 mEq/L [facility] CREATININE 0.8 0.7 - 1.5 mg/dL [facility] CALCIUM 8.9 8.4 - 10.5 mg/dL [facility] GLUCOSE 112(H) 70 - 110 mg/dL [facility] CHLORIDE 102 95 - 110 mEq/L [facility] SODIUM 134(L) 136 - 145 mEq/L [facility] ANION GAP 12 9 - 20 mEq/L [facility] Blood specimen (specimen) 11/12/2007 3:11 AM HOSPICE MUSIC THERAPIST 11/12/2007 3:11 AM HOSPICE MUSIC THERAPIST Carmella Santiago MD CHEMISTRY ORDERABLES F inal Result Performing Organization Address [facility] de Phone Number [facility] [address] [place] [address] * (ABNORMAL) PROTIME-INR (11/12/2007 3:11 AM HOSPICE MUSIC THERAPIST) INR 1.8 [facility] Comment: Expected Values for INR: DVT/PE Goal INR 2.5; range 2.0 - 3.0 Valve Replacement Tissue Goal INR 2.5; range 2.0 - 3.0 Mechanical Goal INR 3.0; range 2.5 - 3.5 POST-[place] Goal INR 2.5; range 2.0 - 3.0 or Goal 3.0; range 2.5 - 3.5 Atrial Fibrillation Goal INR 2.5; range 2.0 - 3.0 Ischemic Stroke Goal INR 2.5; range 2.0 - 3.0 For additional information see Guidelines for Anticoagulation available from the pharmacy Emilia Boateng [phone] PROTIME 22.8(H) 12.8 - 15.8 Secs [facility] Comment:As of 2007 not e change in normal range. Blood specimen (specimen) 11/12/2007 3:11 AM HOSPICE MUSIC THERAPIST 11/12/2007 3:11 AM HOSPICE MUSIC THERAPIST Carmella Santiago MD HEMATOLOGY ORDERABLES Final Result Performing Organization Address [facility] Phone Number [facility] [address] [place] [address] * (ABNORMAL) PTT (11/11/2007 3:58 AM HOSPICE MUSIC THERAPIST) PTT 84.6(H) 21.6 - 35.6 Secs [facility] Comment: Therapeutic Range: Hi-level PE/DVT heparin protocol 80.1 -95.0 sec Lo-level PE/DVT heparin protocol 67.1 - 80.0 sec Cardiac Heparin Protocol 67.1 - 85.0 sec Neuro Heparin Protocol 67.1 - 80.0 sec As of 08/19/2006 note change in APTT Normal Range. Blood specimen (specimen) 11/11/2007 3:58 AM HOSPICE MUSIC THERAPIST 11/11/2007 4:31 AM HOSPICE MUSIC THERAPIST Carmella Santiago MD HEMATOLOGY ORDERABLES Final Result Performing Organization Address [facility] Phone Number [facility] [address] [place] [address] * (ABNORMAL) PROTIME-INR (11/11/2007 3:58 AM HOSPICE MUSIC THERAPIST) INR 1.5 [facility] Comment: Expected Values for INR: DVT/PE Goal INR 2.5; range 2.0 - 3.0 Valve Replacement Tissue Goal INR 2.5; range 2.0 - 3.0 Mechanical Goal INR 3.0; range 2.5 - 3.5 POST-[place] Goal INR 2.5; range 2.0 - 3.0 or Goal 3.0; range 2.5 - 3.5 Atrial Fibrillation Goal INR 2.5; range 2.0 - 3.0 Ischemic Stroke Goal INR 2.5; range 2.0 - 3.0 For additional information see Guidelines for Anticoagulation available from the pharmacy Emilia Boateng [phone] PROTIME 19.4(H) 12.8 - 15.8 Secs [facility] Comment:As of 2007 not e change in normal range. Blood specimen (specimen) 11/11/2007 3:58 AM HOSPICE MUSIC THERAPIST 11/11/2007 4:31 AM HOSPICE MUSIC THERAPIST us Carmella Santiago MD HEMATOLOGY ORDERABLES Final Result Performing Organization Address City/State/[facility] Co de Phone Number [facility] [address] [place] [address] * (ABNORMAL) CBC WITH DIFFERENTIAL (11/11/2007 3:58 AM HOSPICE MUSIC THERAPIST) [facility] HEMATOCRIT 35.4(L) 41.0 - 53.0 % [facility] PLATELETS 163 140 - 440 K/ul [facility] EOSINOPHIL ABSOLUTE 0.2 0.0 - 0.7 K/ul [facility] EOSINOPHILS 1.8 0.0 - 7.0 % [facility] RBC 3.89(L) 4.60 - 6.20 Mil/ul [facility] MCHC 33.6 30.0 - 35.0 g/dL [facility] LYMPHOCYTE ABSOLUTE 1.5 1.2 - 4.0 K/ul [facility] LYMPHOCYTES 16.4(L) 24.0 - 44.0 % [facility] MCV 91.0 84.0 - 103.0 Fl [facility] BASOPHILS 0.3 0.0 - 1.0 % [facility] MPV 10.0 8.9 - 12.8 Fl [facility] BASOPHILS ABSOLUTE 0.0 0.0 - 0.2 K/ul [facility] HEMOGLOBIN 11.9(L) 14.0 - 18.0 g/dL [facility] MONOCYTES 11.6(H) 2.0 - 10.0 % [facility] RDW 13.9 11.0 - 14.5 % [facility] MONOCYTE ABSOLUTE 1.0(H) 0.1 - 0.6 K/ul [facility] WBC 9.0 4.8 - 10.8 K/ul [facility] NEUTROPHILS 69.9 42.2 - 75.2 % [facility] MCH 30.6 27.0 - 34.0 pg [facility] NEUTROPHIL ABSOLUTE 6.3 2.0 - 8.0 K/ul [facility] Blood specimen (specimen) 11/11/2007 3:58 AM HOSPICE MUSIC THERAPIST 11/11/2007 4:31 AM HOSPICE MUSIC THERAPIST Carmella Santiago MD HEMATOLOGY ORDERABLES Final Result [facility] [address] [place] [address] * (ABNORMAL) BASIC METABOLIC PANEL (11/11/2007 3:58 AM HOSPICE MUSIC THERAPIST) CO2 24 22 - 32 mmol/l [facility] OSMOLALITY, CALCULATED 276 275 - 295 mOsm/Kg [facility] POTASSIUM 3.4(L) 3.5 - 5.0 mEq/L [facility] CREATININE 0.8 0.7 - 1.5 mg/dL [facility] CALCIUM 8.6 8.4 - 10.5 mg/dL [facility] GLUCOSE 123(H) 70 - 110 mg/dL [facility] CHLORIDE 101 95 - 110 mEq/L [facility] SODIUM 135(L) 136 - 145 mEq/L [facility] ANION GAP 13 9 - 20 mEq/L [facility] BUN 6(L) 9 - 20 mg/dL [facility] Blood specimen (specimen) 11/11/2007 3:58 AM HOSPICE MUSIC THERAPIST 11/11/2007 4:31 AM HOSPICE MUSIC THERAPIST Carmella Santiago MD CHEMISTRY ORDERABLES F inal Result Performing Organization Address [facility] de Phone Number [facility] [address] [place] [address] * (ABNORMAL) PTT (11/10/2007 7:50 PM HOSPICE MUSIC THERAPIST) PTT 78.7(H) 21.6 - 35.6 Secs [facility] Comment: Therapeutic Range: Hi-level PE/DVT heparin protocol 80.1 -95.0 sec Lo-level PE/DVT heparin protocol 67.1 - 80.0 sec Cardiac Heparin Protocol 67.1 - 85.0 sec Neuro Heparin Protocol 67.1 - 80.0 sec As of 08/19/2006 note change in APTT Normal Range. Blood specimen (specimen) 11/10/2007 7:50 PM HOSPICE MUSIC THERAPIST 11/10/2007 8:03 PM HOSPICE MUSIC THERAPIST Result [facility] Carmella Santiago MD HEMATOLOGY ORDERABLES Final Result Performing Organization Address [facility] de Phone Number [facility] [address] [place] [address] * (ABNORMAL) URINALYSIS MICROSCOPY ONLY (11/10/2007 1:08 PM HOSPICE MUSIC THERAPIST) HYALINE CAST None Seen 0 - 2 [facility] WBC URINE 0-2 0 - 2 [facility] BACTERIA UA None Seen None Seen [facility] RBC UA 6-10(A) 0 - 2 [facility] Urine specimen (specimen) 11/10/2007 1:08 PM HOSPICE MUSIC THERAPIST 11/10/2007 1:15 PM HOSPICE MUSIC THERAPIST Narrative [facility] - 11/10/2007 1:38 PM HOSPICE MUSIC THERAPIST Microscopic ordered by policy Carmella Santiago MD URINE ORDERABLES Final Result Performing Organization Address [facility] Co de Phone Number [facility] [address] [place] [address] * BLOOD CULTURE (11/10/2007 1:08 PM HOSPICE MUSIC THERAPIST) FINAL REPORT No growth INTERFA CE SYSTEM Blood specimen (specimen) 11/10/2007 1:08 PM HOSPICE MUSIC THERAPIST 11/10/2007 1:25 PM HOSPICE MUSIC THERAPIST Carmella Santiago MD MICROBIOLOGY - GENERAL ORDERABLES Final Result Performing Organization Address [facility] de Phone Number INTERFACE SYSTEM Refer to clinic/hospital department * (ABNORMAL) URINALYSIS (11/10/2007 1:08 PM HOSPICE MUSIC THERAPIST) SPECIFIC GRAVITY UA 1.010 <=1.005 [facility] PH UA 7.0 5.0 - 9.0 [facility] KETONES UA NEGATIVE NEGATIVE [facility] LEUKOCYTE ESTERASE UA NEGATIVE NEGATIVE [facility] UROBILINOGEN UA 0.2 0.2 [facility] COLOR UA Yellow Straw [facility] PROTEIN UA NEGATIVE NEGATIVE [facility] NITRITE UA NEGATIVE NEGATIVE [facility] BILIRUBIN UA NEGATIVE NEGATIVE [facility] MICRO EXAM Yes(A) No [facility] BLOOD UA MODERATE(A) NEGATIVE [facility] CLARITY UA Clear Clear [facility] GLUCOSE UA NEGATIVE NEGATIVE [facility] Urine, clean catch 11/10/2007 1:08 PM HOSPICE MUSIC THERAPIST 11/10/2007 1:08 PM HOSPICE MUSIC THERAPIST Carmella Santiago MD URINE ORDERABLES Final Result Performing Organization Address City/[facility] Co de Phone Number [facility] [address] [place] [address] * URINE CULTURE (11/10/2007 1:08 PM HOSPICE MUSIC THERAPIST) FINAL REPORT No growth INTERFA CE SYSTEM 11/10/2007 1:0 8 PM HOSPICE MUSIC THERAPIST 11/10/2007 1:42 PM HOSPICE MUSIC THERAPIST Carmella Santiago MD MICROBIOLOGY - GENERAL ORDERABLES Final Result Performing Organization Address [facility] de Phone Number INTERFACE SYSTEM Refer to clinic/hospital department * BLOOD CULTURE (11/10/2007 1:08 PM HOSPICE MUSIC THERAPIST) FINAL REPORT No growth INTERFA CE SYSTEM Blood specimen (specimen) 11/10/2007 1:08 PM HOSPICE MUSIC THERAPIST 11/10/2007 1:28 PM HOSPICE MUSIC THERAPIST Carmella Santiago MD MICROBIOLOGY - GENERAL ORDERABLES Final Result Performing Organization Address [facility] de Phone Number INTERFACE SYSTEM Refer to clinic/hospital department * XR CHEST PA OR AP (11/10/2007 5:25 AM HOSPICE MUSIC THERAPIST) Anatomical Region Laterality Modality Chest Other 11/10/2007 5:25 AM HOSPICE MUSIC THERAPIST Narrative 11/10/2007 5:25 AM HOSPICE MUSIC THERAPIST Exam: Chest - Portable Date/Time of Exam: Nov 10, 2007 5:25:05 AM History: Post-operative. Findings: Comparison radiograph is dated 02/22/2007. Cardiac silhouette is within normal limits. There is mild central vascular congestion possibly related to volume status. There are no confluent opacities or significant pleural effusions. There may be minimal groundglass atelectasis in the right lung base. Lungs are hyperexpanded slightly but may indicate some underlying COPD. Summary: 1. Mild central vascular congestion possibility related to volume status. 2. Possible COPD. 3. Minimal groundglass atelectasis in the right lung base. - Procedure Note Andrey Chavarria Jr. - 11/10/2007 Exam: Chest - Portable Date/Time of Exam: Nov 10, 2007 5:25:05 AM History: Post-operative. Findings: Comparison radiograph is dated 02/22/2007. Cardiac silhouette is within normal limits. There is mild central vascularcongestion possibly related to volume status. There are no confluent opacities or significant pleuraleffusions. There may be minimal groundglass atelectasis in the right lung base. Lungs arehyperexpanded slightly but may indicate some underlying COPD. Summary: 1. Mild central vascular congestion possibility related to volumestatus. 2. Possible COPD. 3. Minimal groundglass atelectasis in the right lung base. - Carmella Santiago MD DIAGNOSTIC IMAGING ORD ERABLES Final Result * (ABNORMAL) BASIC METABOLIC PANEL (11/10/2007 3:10 AM HOSPICE MUSIC THERAPIST) BUN 7(L) 9 - 20 mg/dL [facility] POTASSIUM 3.7 3.5 - 5.0 mEq/L [facility] ANION GAP 10 9 - 20 mEq/L [facility] CALCIUM 8.7 8.4 - 10.5 mg/dL [facility] CREATININE 0.7 0.7 - 1.5 mg/dL [facility] CHLORIDE 102 95 - 110 mEq/L [facility] OSMOLALITY, CALCULATED 270(L) 275 - 295 mOsm/Kg [facility] GLUCOSE 151(H) 70 - 110 mg/dL [facility] SODIUM 130(L) 136 - 145 mEq/L [facility] CO2 22 22 - 32 mmol/l [facility] Blood specimen (specimen) 11/10/2007 3:10 AM HOSPICE MUSIC THERAPIST 11/10/2007 3:10 AM HOSPICE MUSIC THERAPIST Carmella Santiago MD CHEMISTRY ORDERABLES E dited [facility] [address] [place] [address] * (ABNORMAL) CBC WITH DIFFERENTIAL (11/10/2007 3:10 AM HOSPICE MUSIC THERAPIST) Pathologist [facility] MCV 88.2 84.0 - 103.0 Fl [facility] MPV 9.4 8.9 - 12.8 Fl [facility] BASOPHILS 0.3 0.0 - 1.0 % [facility] BASOPHILS ABSOLUTE 0.0 0.0 - 0.2 K/ul [facility] HEMOGLOBIN 12.9(L) 14.0 - 18.0 g/dL [facility] RDW 13.7 11.0 - 14.5 % [facility] MONOCYTES 10.1(H) 2.0 - 10.0 % [facility] MONOCYTE ABSOLUTE 1.0(H) 0.1 - 0.6 K/ul [facility] WBC 10.2 4.8 - 10.8 K/ul [facility] MCH 31.0 27.0 - 34.0 pg [facility] NEUTROPHIL ABSOLUTE 8.1(H) 2.0 - 8.0 K/ul [facility] NEUTROPHILS 79.2(H) 42.2 - 75.2 % [facility] HEMATOCRIT 36.7(L) 41.0 - 53.0 % [facility] EOSINOPHILS 0.9 0.0 - 7.0 % [facility] PLATELETS 149 140 - 440 K/ul [facility] EOSINOPHIL ABSOLUTE 0.1 0.0 - 0.7 K/ul [facility] RBC 4.16(L) 4.60 - 6.20 Mil/ul [facility] LYMPHOCYTES 9.5(L) 24.0 - 44.0 % [facility] MCHC 35.1(H) 30.0 - 35.0 g/dL [facility] LYMPHOCYTE ABSOLUTE 1.0(L) 1.2 - 4.0 K/ul [facility] Blood specimen (specimen) 11/10/2007 3:10 AM HOSPICE MUSIC THERAPIST 11/10/2007 3:10 AM HOSPICE MUSIC THERAPIST us Carmella Santiago MD HEMATOLOGY ORDERABLES Final Result [facility] [address] [place] [address] * (ABNORMAL) PT AND APTT (11/10/2007 3:10 AM HOSPICE MUSIC THERAPIST) INR 1.2 [facility] Comment: Expected Values for INR: DVT/PE Goal INR 2.5; range 2.0 - 3.0 Valve Replacement Tissue Goal INR 2.5; range 2.0 - 3.0 Mechanical Goal INR 3.0; range 2.5 - 3.5 POST-[place] Goal INR 2.5; range 2.0 - 3.0 or Goal 3.0; range 2.5 - 3.5 Atrial Fibrillation Goal INR 2.5; range 2.0 - 3.0 Ischemic Stroke Goal INR 2.5; range 2.0 - 3.0 For additional information see Guidelines for Anticoagulation available from the pharmacy Emilia Boateng. [phone] PTT 39.4(H) 21.6 - 35.6 Secs [facility] Comment: Therapeutic Range: Hi-level PE/DVT heparin protocol 80.1 -95.0 sec Lo-level PE/DVT heparin protocol 67.1 - 80.0 sec Cardiac Heparin Protocol 67.1 - 85.0 sec Neuro Heparin Protocol 67.1 - 80.0 sec As of 08/19/2006 note change in APTT Normal Range. PROTIME 16.5(H) 12.8 - 15.8 Secs [facility] Comment:As of 2007 not e change in normal range. Blood specimen (specimen) 11/10/2007 3:10 AM HOSPICE MUSIC THERAPIST 11/10/2007 3:10 AM HOSPICE MUSIC THERAPIST us Carmella Santiago MD HEMATOLOGY ORDERABLES Edited [facility] [address] [place] [address] * (ABNORMAL) BASIC METABOLIC PANEL (11/09/2007 7:03 PM HOSPICE MUSIC THERAPIST) Pathologist [facility] POTASSIUM 4.3 3.5 - 5.0 mEq/L [facility] OSMOLALITY, CALCULATED 271(L) 275 - 295 mOsm/Kg [facility] CREATININE 0.8 0.7 - 1.5 mg/dL [facility] CALCIUM 9.3 8.4 - 10.5 mg/dL [facility] GLUCOSE 132(H) 70 - 110 mg/dL [facility] CHLORIDE 106 95 - 110 mEq/L [facility] ANION GAP 10 9 - 20 mEq/L [facility] SODIUM 131(L) 136 - 145 mEq/L [facility] BUN 6(L) 9 - 20 mg/dL [facility] CO2 19(L) 22 - 32 mmol/l [facility] Blood specimen (specimen) 11/09/2007 7:03 PM HOSPICE MUSIC THERAPIST 11/09/2007 7:10 PM HOSPICE MUSIC THERAPIST Carmella Santiago MD CHEMISTRY ORDERABLES F inal Result Performing Organization Address [facility] de Phone Number [facility] [address] [place] [address] * (ABNORMAL) PTT (11/09/2007 7:03 PM HOSPICE MUSIC THERAPIST) PTT 159.9(AA) 21.6 - 35.6 Secs [facility] Comment: Potentially critical/toxic APTT called by dg to Jessie VERA, with verbal read back, at 11/09/07 19:33. Line draw. Therapeutic Range: Hi-level PE/DVT heparin protocol 80.1 -95.0 sec Lo-level PE/DVT heparin protocol 67.1 - 80.0 sec Cardiac Heparin Protocol 67.1 - 85.0 sec Neuro Heparin Protocol 67.1 - 80.0 sec As of 08/19/2006 note change in APTT Normal Range. Blood specimen (specimen) 11/09/2007 7:03 PM HOSPICE MUSIC THERAPIST 11/09/2007 7:10 PM HOSPICE MUSIC THERAPIST Carmella Santiago MD HEMATOLOGY ORDERABLES Final Result Performing Organization Address [facility] Phone Number [facility] [address] [place] [address] * (ABNORMAL) PROTIME-INR (11/09/2007 7:03 PM HOSPICE MUSIC THERAPIST) Pathologist [facility] INR 1.3 [facility] Comment: Expected Values for INR: DVT/PE Goal INR 2.5; range 2.0 - 3.0 Valve Replacement Tissue Goal INR 2.5; range 2.0 - 3.0 Mechanical Goal INR 3.0; range 2.5 - 3.5 POST-[place] Goal INR 2.5; range 2.0 - 3.0 or Goal 3.0; range 2.5 - 3.5 Atrial Fibrillation Goal INR 2.5; range 2.0 - 3.0 Ischemic Stroke Goal INR 2.5; range 2.0 - 3.0 For additional information see Guidelines for Anticoagulation available from the pharmacy Emilia Boateng [phone] PROTIME 17.3(H) 12.8 - 15.8 Secs [facility] Comment:As of 2007 not e change in normal range. Blood specimen (specimen) 11/09/2007 7:03 PM HOSPICE MUSIC THERAPIST 11/09/2007 7:10 PM HOSPICE MUSIC THERAPIST Carmella Santiago MD HEMATOLOGY ORDERABLES Final Result [facility] [address] [place] [address] * (ABNORMAL) CBC WITH DIFFERENTIAL (11/09/2007 7:03 PM HOSPICE MUSIC THERAPIST) Pathologist [facility] LYMPHOCYTE ABSOLUTE 1.4 1.2 - 4.0 K/ul [facility] MCV 90.0 84.0 - 103.0 Fl [facility] MPV 9.2 8.9 - 12.8 Fl [facility] BASOPHILS ABSOLUTE 0.0 0.0 - 0.2 K/ul [facility] BASOPHILS 0.2 0.0 - 1.0 % [facility] HEMOGLOBIN 13.9(L) 14.0 - 18.0 g/dL [facility] RDW 13.8 11.0 - 14.5 % [facility] MONOCYTE ABSOLUTE 0.9(H) 0.1 - 0.6 K/ul [facility] MONOCYTES 9.4 2.0 - 10.0 % [facility] WBC 10.0 4.8 - 10.8 K/ul [facility] MCH 31.0 27.0 - 34.0 pg [facility] NEUTROPHIL ABSOLUTE 7.6 2.0 - 8.0 K/ul [facility] NEUTROPHILS 75.7(H) 42.2 - 75.2 % [facility] HEMATOCRIT 40.3(L) 41.0 - 53.0 % [facility] EOSINOPHILS 0.9 0.0 - 7.0 % [facility] PLATELETS 150 140 - 440 K/ul [facility] EOSINOPHIL ABSOLUTE 0.1 0.0 - 0.7 K/ul [facility] RBC 4.48(L) 4.60 - 6.20 Mil/ul [facility] LYMPHOCYTES 13.8(L) 24.0 - 44.0 % [facility] MCHC 34.5 30.0 - 35.0 g/dL [facility] Blood specimen (specimen) 11/09/2007 7:03 PM HOSPICE MUSIC THERAPIST 11/09/2007 7:10 PM HOSPICE MUSIC THERAPIST us Carmella Santiago MD HEMATOLOGY ORDERABLES Final Result Performing Organization Address City/State/[facility] Co de Phone Number [facility] [address] [place] [address] * (ABNORMAL) URINALYSIS MICROSCOPY ONLY (11/09/2007 1:14 PM HOSPICE MUSIC THERAPIST) RBC UA 3-5(A) 0 - 2 [facility] HYALINE CAST None Seen 0 - [address] [facility] WBC URINE None Seen 0 - 2 [facility] BACTERIA UA None Seen None Seen [facility] Urine specimen (specimen) 11/09/2007 1:14 PM HOSPICE MUSIC THERAPIST 11/09/2007 2:01 PM HOSPICE MUSIC THERAPIST Narrative [facility] - 11/09/2007 2:18 PM HOSPICE MUSIC THERAPIST Microscopic ordered by policy Carmella Santiago MD URINE ORDERABLES Final Result Performing Organization Address [facility] de Phone Number [facility] [address] [place] [address] * (ABNORMAL) URINALYSIS (11/09/2007 1:14 PM HOSPICE MUSIC THERAPIST) BLOOD UA MODERATE(A) NEGATIVE [facility] CLARITY UA Clear Clear [facility] GLUCOSE UA NEGATIVE NEGATIVE [facility] PH UA 7.5 5.0 - 9.0 [facility] SPECIFIC GRAVITY UA 1.015 <=1.005 [facility] LEUKOCYTE ESTERASE UA NEGATIVE NEGATIVE [facility] KETONES UA NEGATIVE NEGATIVE [facility] COLOR UA Yellow Straw [facility] PROTEIN UA NEGATIVE NEGATIVE [facility] MICRO EXAM Yes(A) No [facility] UROBILINOGEN UA 0.2 0.2 [facility] BILIRUBIN UA NEGATIVE NEGATIVE [facility] NITRITE UA NEGATIVE NEGATIVE [facility] Urine, clean catch 11/09/2007 1:14 PM HOSPICE MUSIC THERAPIST 11/09/2007 2:01 PM HOSPICE MUSIC THERAPIST Carmella Santiago MD URINE ORDERABLES Final Result Performing Organization Address [facility] de Phone Number [facility] [address] [place] [address] * URINE CULTURE (11/09/2007 1:14 PM HOSPICE MUSIC THERAPIST) FINAL REPORT No growth INTERFA CE SYSTEM 11/09/2007 1:14 PM HOSPICE MUSIC THERAPIST 11/09/2007 1:48 PM HOSPICE MUSIC THERAPIST Carmella Santiago MD MICROBIOLOGY - GENERAL ORDERABLES Final Result Performing Organization Address [facility] de Phone Number INTERFACE SYSTEM Refer to clinic/hospital department * (ABNORMAL) PT AND APTT (11/09/2007 4:22 AM HOSPICE MUSIC THERAPIST) PROTIME 16.2(H) 12.8 - 15.8 Secs [facility] Comment:As of 2007 not e change in normal range. PTT 46.5(H) 21.6 - 35.6 Secs [facility] Comment: Therapeutic Range: Hi-level PE/DVT heparin protocol 80.1 -95.0 sec Lo-level PE/DVT heparin protocol 67.1 - 80.0 sec Cardiac Heparin Protocol 67.1 - 85.0 sec Neuro Heparin Protocol 67.1 - 80.0 sec As of 08/19/2006 note change in APTT Normal Range. INR 1.2 [facility] Comment: Expected Values for INR: DVT/PE Goal INR 2.5; range 2.0 - 3.0 Valve Replacement Tissue Goal INR 2.5; range 2.0 - 3.0 Mechanical Goal INR 3.0; range 2.5 - 3.5 POST-[place] Goal INR 2.5; range 2.0 - 3.0 or Goal 3.0; range 2.5 - 3.5 Atrial Fibrillation Goal INR 2.5; range 2.0 - 3.0 Ischemic Stroke Goal INR 2.5; range 2.0 - 3.0 For additional information see Guidelines for Anticoagulation available from the pharmacy Emilia Boateng. [phone] Blood specimen (specimen) 11/09/2007 4:22 AM HOSPICE MUSIC THERAPIST 11/09/2007 4:27 AM HOSPICE MUSIC THERAPIST us Carmella Santiago MD HEMATOLOGY ORDERABLES Edited [facility] [address] [place] [address] * (ABNORMAL) BASIC METABOLIC PANEL (11/09/2007 4:22 AM HOSPICE MUSIC THERAPIST) SODIUM 135(L) 136 - 145 mEq/L [facility] ANION GAP 10 9 - 20 mEq/L [facility] BUN 6(L) 9 - 20 mg/dL [facility] CO2 22 22 - 32 mmol/l [facility] OSMOLALITY, CALCULATED 277 275 - 295 mOsm/Kg [facility] POTASSIUM 3.6 3.5 - 5.0 mEq/L [facility] CREATININE 0.7 0.7 - 1.5 mg/dL [facility] CALCIUM 8.6 8.4 - 10.5 mg/dL [facility] GLUCOSE 132(H) 70 - 110 mg/dL [facility] CHLORIDE 107 95 - 110 mEq/L [facility] Blood specimen (specimen) 11/09/2007 4:22 AM HOSPICE MUSIC THERAPIST 11/09/2007 4:27 AM HOSPICE MUSIC THERAPIST us Carmella Santiago MD CHEMISTRY ORDERABLES F inal Result [facility] [address] [place] [address] * (ABNORMAL) CBC WITH DIFFERENTIAL (11/09/2007 4:22 AM HOSPICE MUSIC THERAPIST) LYMPHOCYTES 16.4(L) 24.0 - 44.0 % [facility] MCHC 34.7 30.0 - 35.0 g/dL [facility] LYMPHOCYTE ABSOLUTE 1.4 1.2 - 4.0 K/ul [facility] MCV 88.9 84.0 - 103.0 Fl [facility] MPV 9.3 8.9 - 12.8 Fl [facility] BASOPHILS ABSOLUTE 0.0 0.0 - 0.2 K/ul [facility] BASOPHILS 0.4 0.0 - 1.0 % [facility] HEMOGLOBIN 13.6(L) 14.0 - 18.0 g/dL [facility] RDW 13.9 11.0 - 14.5 % [facility] MONOCYTE ABSOLUTE 0.9(H) 0.1 - 0.6 K/ul [facility] MONOCYTES 10.8(H) 2.0 - 10.0 % [facility] WBC 8.2 4.8 - 10.8 K/ul [facility] MCH 30.8 27.0 - 34.0 pg [facility] NEUTROPHIL ABSOLUTE 5.8 2.0 - 8.0 K/ul [facility] NEUTROPHILS 71.2 42.2 - 75.2 % [facility] HEMATOCRIT 39.2(L) 41.0 - 53.0 % [facility] EOSINOPHILS 1.2 0.0 - 7.0 % [facility] PLATELETS 154 140 - 440 K/ul [facility] EOSINOPHIL ABSOLUTE 0.1 0.0 - 0.7 K/ul [facility] RBC 4.41(L) 4.60 - 6.20 Mil/ul [facility] Blood specimen (specimen) 11/09/2007 4:22 AM HOSPICE MUSIC THERAPIST 11/09/2007 4:27 AM HOSPICE MUSIC THERAPIST Carmella Santiago MD HEMATOLOGY ORDERABLES Final Result Performing Organization Address [facility] Co de Phone Number [facility] [address] [place] [address] * FIBRINOGEN QUANTITATIVE (11/09/2007 4:22 AM HOSPICE MUSIC THERAPIST) FIBRINOGEN 393 200 - 400 mg/dL [facility] Blood specimen (specimen) 11/09/2007 4:22 AM HOSPICE MUSIC THERAPIST 11/09/2007 4:27 AM HOSPICE MUSIC THERAPIST Carmella Santiago MD HEMATOLOGY ORDERABLES Final Result Performing Organization Address [facility] de Phone Number [facility] [address] [place] [address] * FIBRINOGEN QUANTITATIVE (11/09/2007 1:02 AM HOSPICE MUSIC THERAPIST) FIBRINOGEN 359 200 - 400 mg/dL [facility] Blood specimen (specimen) 11/09/2007 1:02 AM HOSPICE MUSIC THERAPIST 11/09/2007 1:05 AM HOSPICE MUSIC THERAPIST us Carmella Santiago MD HEMATOLOGY ORDERABLES Final Result Performing Organization Address [facility] Phone Number [facility] [address] [place] [address] * FIBRINOGEN QUANTITATIVE (11/08/2007 9:10 PM HOSPICE MUSIC THERAPIST) FIBRINOGEN 356 200 - 400 mg/dL [facility] Blood specimen (specimen) 11/08/2007 9:10 PM HOSPICE MUSIC THERAPIST 11/08/2007 9:17 PM HOSPICE MUSIC THERAPIST Carmella Santiago MD HEMATOLOGY ORDERABLES Final Result Performing Organization Address [facility] Phone Number [facility] [address] [place] [phone] * FIBRINOGEN QUANTITATIVE (11/08/2007 4:17 PM HOSPICE MUSIC THERAPIST) FIBRINOGEN 354 200 - 400 mg/dL [facility] Blood specimen (specimen) 11/08/2007 4:17 PM HOSPICE MUSIC THERAPIST 11/08/2007 4:17 PM HOSPICE MUSIC THERAPIST Carmella Santiago MD HEMATOLOGY ORDERABLES Final Result Performing Organization Address [facility] Phone Number [facility] [address] [place] [address] * FIBRINOGEN QUANTITATIVE (11/08/2007 11:22 AM HOSPICE MUSIC THERAPIST) FIBRINOGEN 359 200 - 400 mg/dL [facility] Blood specimen (specimen) 11/08/2007 11:22 AM HOSPICE MUSIC THERAPIST 11/08/2007 11:22 AM HOSPICE MUSIC THERAPIST Carmella Santiago MD HEMATOLOGY ORDERABLES Final Result Performing Organization Address [facility] Phone Number [facility] [address] [place] [address] * (ABNORMAL) PTT (11/08/2007 4:08 AM HOSPICE MUSIC THERAPIST) PTT 39.3(H) 21.6 - 35.6 Secs [facility] Comment: Therapeutic Range: Hi-level PE/DVT heparin protocol 80.1 -95.0 sec Lo-level PE/DVT heparin protocol 67.1 - 80.0 sec Cardiac Heparin Protocol 67.1 - 85.0 sec Neuro Heparin Protocol 67.1 - 80.0 sec As of 08/19/2006 note change in APTT Normal Range. Blood specimen (specimen) 11/08/2007 4:08 AM HOSPICE MUSIC THERAPIST 11/08/2007 4:08 AM HOSPICE MUSIC THERAPIST us Carmella Santiago MD HEMATOLOGY ORDERABLES Final Result Performing Organization Address City/State/[facility] Co de Phone Number [facility] [address] [place] [address] * (ABNORMAL) CBC WITH DIFFERENTIAL (11/08/2007 4:08 AM HOSPICE MUSIC THERAPIST) Pathologist [facility] HEMOGLOBIN 14.6 14.0 - 18.0 g/dL [facility] MONOCYTES 8.4 2.0 - 10.0 % [facility] RDW 13.9 11.0 - 14.5 % [facility] MONOCYTE ABSOLUTE 0.7(H) 0.1 - 0.6 K/ul [facility] WBC 8.4 4.8 - 10.8 K/ul [facility] NEUTROPHILS 69.3 42.2 - 75.2 % [facility] MCH 30.5 27.0 - 34.0 pg [facility] NEUTROPHIL ABSOLUTE 5.8 2.0 - 8.0 K/ul [facility] HEMATOCRIT 42.3 41.0 - 53.0 % [facility] PLATELETS 192 140 - 440 K/ul [facility] EOSINOPHIL ABSOLUTE 0.1 0.0 - 0.7 K/ul [facility] EOSINOPHILS 1.6 0.0 - 7.0 % [facility] RBC 4.78 4.60 - 6.20 Mil/ul [facility] MCHC 34.5 30.0 - 35.0 g/dL [facility] LYMPHOCYTE ABSOLUTE 1.7 1.2 - 4.0 K/ul [facility] LYMPHOCYTES 20.2(L) 24.0 - 44.0 % [facility] MCV 88.5 84.0 - 103.0 Fl [facility] BASOPHILS 0.5 0.0 - 1.0 % [facility] MPV 9.4 8.9 - 12.8 Fl [facility] BASOPHILS ABSOLUTE 0.0 0.0 - 0.2 K/ul [facility] Blood specimen (specimen) 11/08/2007 4:08 AM HOSPICE MUSIC THERAPIST 11/08/2007 4:08 AM HOSPICE MUSIC THERAPIST Carmella Santiago MD HEMATOLOGY ORDERABLES Final Result Performing Organization Address [facility] de Phone Number [facility] [address] [place] [address] * (ABNORMAL) BASIC METABOLIC PANEL (11/08/2007 4:08 AM HOSPICE MUSIC THERAPIST) GLUCOSE 116(H) 70 - 110 mg/dL [facility] CHLORIDE 109 95 - 110 mEq/L [facility] SODIUM 138 136 - 145 mEq/L [facility] ANION GAP 10 9 - 20 mEq/L [facility] BUN 11 9 - 20 mg/dL [facility] CO2 23 22 - 32 mmol/l [facility] OSMOLALITY, CALCULATED 284 275 - 295 mOsm/Kg [facility] POTASSIUM 3.9 3.5 - 5.0 mEq/L [facility] CREATININE 0.9 0.7 - 1.5 mg/dL [facility] CALCIUM 9.0 8.4 - 10.5 mg/dL [facility] Blood specimen (specimen) 11/08/2007 4:08 AM HOSPICE MUSIC THERAPIST 11/08/2007 4:08 AM HOSPICE MUSIC THERAPIST Carmella Santiago MD CHEMISTRY ORDERABLES F inal Result Performing Organization Address City/State/[facility] Co de Phone Number [facility] [address] [place] [address] * FIBRINOGEN QUANTITATIVE (11/08/2007 1:34 AM HOSPICE MUSIC THERAPIST) Pathologist [facility] FIBRINOGEN 356 200 - 400 mg/dL [facility] Blood specimen (specimen) 11/08/2007 1:34 AM HOSPICE MUSIC THERAPIST 11/08/2007 1:34 AM HOSPICE MUSIC THERAPIST Carmella Santiago MD HEMATOLOGY ORDERABLES Final Result Performing Organization Address [facility] Co de Phone Number [facility] [address] [place] [address] * MRSA CULTURE (11/07/2007 10:25 PM HOSPICE MUSIC THERAPIST) [facility] FINAL REPORT Culture screen for MRSA negative INTERFACE SYSTEM ANTERIOR NARES SWAB / Unknown 11/07/2007 10:25 PM HOSPICE MUSIC THERAPIST 11/07/2007 10:25 PM HOSPICE MUSIC THERAPIST Carmella Santiago MD MICROBIOLOGY - GENERAL ORDERABLES Final Result Performing Organization Address [facility] Co de Phone Number INTERFACE SYSTEM Refer to clinic/hospital department * FIBRINOGEN QUANTITATIVE (11/07/2007 9:12 PM HOSPICE MUSIC THERAPIST) [facility] FIBRINOGEN 354 200 - 400 mg/dL [facility] Blood specimen (specimen) 11/07/2007 9:12 PM HOSPICE MUSIC THERAPIST 11/07/2007 9:12 PM HOSPICE MUSIC THERAPIST Carmella Santiago MD HEMATOLOGY ORDERABLES Final Result Performing Organization Address [facility] Co de Phone Number [facility] [address] [place] [address] * BASIC METABOLIC PANEL (11/07/2007 9:12 PM HOSPICE MUSIC THERAPIST) Pathologist [facility] OSMOLALITY, CALCULATED 281 275 - 295 mOsm/Kg [facility] CHLORIDE 104 95 - 110 mEq/L [facility] SODIUM 137 136 - 145 mEq/L [facility] ANION GAP 14 9 - 20 mEq/L [facility] GLUCOSE 96 70 - 110 mg/dL [facility] CO2 23 22 - 32 mmol/l [facility] POTASSIUM 3.7 3.5 - 5.0 mEq/L [facility] CREATININE 0.8 0.7 - 1.5 mg/dL [facility] CALCIUM 9.2 8.4 - 10.5 mg/dL [facility] BUN 10 9 - 20 mg/dL [facility] Blood specimen (specimen) 11/07/2007 9:12 PM HOSPICE MUSIC THERAPIST 11/07/2007 9:12 PM HOSPICE MUSIC THERAPIST us Carmella Santiago MD CHEMISTRY ORDERABLES E dited Performing Organization Address City/State/[facility] Co de Phone Number [facility] [address] [place] [address] * (ABNORMAL) CBC WITHOUT DIFFERENTIAL (11/07/2007 9:12 PM HOSPICE MUSIC THERAPIST) WBC 9.6 4.8 - 10.8 K/ul [facility] NEUTROPHILS 65.3 42.2 - 75.2 % [facility] MCH 30.8 27.0 - 34.0 pg [facility] NEUTROPHIL ABSOLUTE 6.3 2.0 - 8.0 K/ul [facility] HEMATOCRIT 41.4 41.0 - 53.0 % [facility] PLATELETS 196 140 - 440 K/ul [facility] EOSINOPHIL ABSOLUTE 0.2 0.0 - 0.7 K/ul [facility] EOSINOPHILS 2.3 0.0 - 7.0 % [facility] RBC 4.71 4.60 - 6.20 Mil/ul [facility] MCHC 35.0 30.0 - 35.0 g/dL [facility] LYMPHOCYTE ABSOLUTE 2.4 1.2 - 4.0 K/ul [facility] LYMPHOCYTES 24.9 24.0 - 44.0 % [facility] MCV 87.9 84.0 - 103.0 Fl [facility] BASOPHILS 0.6 0.0 - 1.0 % [facility] MPV 9.3 8.9 - 12.8 Fl [facility] BASOPHILS ABSOLUTE 0.1 0.0 - 0.2 K/ul [facility] HEMOGLOBIN 14.5 14.0 - 18.0 g/dL [facility] MONOCYTES 6.9 2.0 - 10.0 % [facility] RDW 13.8 11.0 - 14.5 % [facility] MONOCYTE ABSOLUTE 0.7(H) 0.1 - 0.6 K/ul [facility] Blood specimen (specimen) 11/07/2007 9:12 PM HOSPICE MUSIC THERAPIST 11/07/2007 9:12 PM HOSPICE MUSIC THERAPIST us Carmella Santiago MD HEMATOLOGY ORDERABLES Final Result Performing Organization Address City/State/[facility] Co de Phone Number [facility] [address] [place] [address] * (ABNORMAL) PROTIME-INR (11/07/2007 4:48 PM HOSPICE MUSIC THERAPIST) PROTIME 19.6(H) 12.8 - 15.8 Secs [facility] Comment:As of 2007 not e change in normal range. INR 1.5 [facility] Comment: Expected Values for INR: DVT/PE Goal INR 2.5; range 2.0 - 3.0 Valve Replacement Tissue Goal INR 2.5; range 2.0 - 3.0 Mechanical Goal INR 3.0; range 2.5 - 3.5 POST-[place] Goal INR 2.5; range 2.0 - 3.0 or Goal 3.0; range 2.5 - 3.5 Atrial Fibrillation Goal INR 2.5; range 2.0 - 3.0 Ischemic Stroke Goal INR 2.5; range 2.0 - 3.0 For additional information see Guidelines for Anticoagulation available from the pharmacy Emilia Boateng [phone] Blood specimen (specimen) 11/07/2007 4:48 PM HOSPICE MUSIC THERAPIST 11/07/2007 5:14 PM HOSPICE MUSIC THERAPIST Carmella Santiago MD HEMATOLOGY ORDERABLES Final Result Performing Organization Address [facility] Number [facility] [address] [place] [address] * ANTIBODY SCREEN (11/07/2007 4:48 PM HOSPICE MUSIC THERAPIST) ANTIBODY SCREEN Negative [facility] Blood specimen (specimen) 11/07/2007 4:48 PM HOSPICE MUSIC THERAPIST 11/07/2007 5:14 PM HOSPICE MUSIC THERAPIST Carmella Santiago MD BLOOD BANK ORDERABLES Final Result Performing Organization Address [facility] Number [facility] [address] [place] [address] * ABORH TYPING (11/07/2007 4:48 PM HOSPICE MUSIC THERAPIST) ABO/RH TYPE O Positive [facility] Blood specimen (specimen) 11/07/2007 4:48 PM HOSPICE MUSIC THERAPIST 11/07/2007 5:14 PM HOSPICE MUSIC THERAPIST Carmella Santiago MD BLOOD BANK ORDERABLES Final Result Performing Organization Address [facility] Number [facility] [address] [place] [address] * BASIC METABOLIC PANEL (11/07/2007 4:48 PM HOSPICE MUSIC THERAPIST) GLUCOSE 95 70 - 110 mg/dL [facility] CHLORIDE 102 95 - 110 mEq/L [facility] SODIUM 136 136 - 145 mEq/L [facility] ANION GAP 14 9 - 20 mEq/L [facility] BUN 12 9 - 20 mg/dL [facility] CO2 24 22 - 32 mmol/l [facility] OSMOLALITY, CALCULATED 280 275 - 295 mOsm/Kg [facility] POTASSIUM 4.2 3.5 - 5.0 mEq/L [facility] CREATININE 1.0 0.7 - 1.5 mg/dL [facility] CALCIUM 10.1 8.4 - 10.5 mg/dL [facility] Blood specimen (specimen) 11/07/2007 4:48 PM HOSPICE MUSIC THERAPIST 11/07/2007 5:14 PM HOSPICE MUSIC THERAPIST us Carmella Santiago MD CHEMISTRY ORDERABLES F inal Result [facility] [address] [place] [address] * (ABNORMAL) CBC WITH DIFFERENTIAL (11/07/2007 4:48 PM HOSPICE MUSIC THERAPIST) MCV 89.2 84.0 - 103.0 Fl [facility] MPV 9.6 8.9 - 12.8 Fl [facility] BASOPHILS ABSOLUTE 0.1 0.0 - 0.2 K/ul [facility] BASOPHILS 0.4 0.0 - 1.0 % [facility] HEMOGLOBIN 15.7 14.0 - 18.0 g/dL [facility] RDW 13.9 11.0 - 14.5 % [facility] MONOCYTE ABSOLUTE 0.6 0.1 - 0.6 K/ul [facility] MONOCYTES 5.4 2.0 - 10.0 % [facility] WBC 11.3(H) 4.8 - 10.8 K/ul [facility] MCH 31.3 27.0 - 34.0 pg [facility] NEUTROPHIL ABSOLUTE 8.7(H) 2.0 - 8.0 K/ul [facility] NEUTROPHILS 76.7(H) 42.2 - 75.2 % [facility] HEMATOCRIT 44.7 41.0 - 53.0 % [facility] EOSINOPHILS 1.1 0.0 - 7.0 % [facility] PLATELETS 221 140 - 440 K/ul [facility] EOSINOPHIL ABSOLUTE 0.1 0.0 - 0.7 K/ul [facility] RBC 5.01 4.60 - 6.20 Mil/ul [facility] LYMPHOCYTES 16.4(L) 24.0 - 44.0 % [facility] MCHC 35.1(H) 30.0 - 35.0 g/dL [facility] LYMPHOCYTE ABSOLUTE 1.9 1.2 - 4.0 K/ul [facility] Blood specimen (specimen) 11/07/2007 4:48 PM HOSPICE MUSIC THERAPIST 11/07/2007 5:14 PM HOSPICE MUSIC THERAPIST us Carmella Santiago MD HEMATOLOGY ORDERABLES Final Result Performing Organization Address City/State/[facility] Co de Phone Number [facility] [address] [place] [address] documented in this encounter Visit Diagnoses Not on filedocumented in this encounter Additional Health Concerns Infection Onset Date Last Indicated Resolved Time R/O COVID-19 2020 2020 06/08/2020 12:3 0 AM CDT COVID-19 2020 2020 07/06/2020 8:09 PM CDT documented as of this encounter Care Teams Coal Tower Operator Relationship Specialty Start Date End Date Dulce Maria Alonzo FNP [address] [place] [phone] PCP - General Nurse Practitioner Family 08/01/20 documented as of this encounter
--- OUTSIDE RECORDS SUMMARY | 2025-04-30 13:33 | XMS_ITS | Encounter Summary ---
Author Organization [facility] Address [address] [place] [address] Care Team Providers Care Sub Plant Manager Name Role Phone Dulce Maria Alonzo Primary Care Provider Encounter Details Date Type Department Care Team (Latest Contact Info) Description 11/24/2005 Outpatient Historical [facility] [address] [facility] [address] [place] [address] Dulce Maria Alonzo FNP [address] [place] [address] Encounter for Long-Term (Current) Use of Anticoagulants (Primary Dx) Social History Tobacco Use Types Packs/Day Years Used Date Smoking Tobacco: Never Assessed Sex and Gender Information Value Date Recorded Sex Assigned at Not on file Legal Sex 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 Gender Identity Not on file Sexual Orientation Not on file documented as of this encounter Plan of Treatment Not on file documented as of this encounter Visit Diagnoses Diagnosis 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
--- OUTSIDE RECORDS SUMMARY | 2025-04-30 13:33 | XMS_ITS | Encounter Summary ---
Author Organization [facility] Address [address] [place] [address] Care Team Providers Care Bond Runner Name Role Phone Dulce Maria Alonzo Primary Care Provider [phone] Encounter Details Date Type Department Care Team (Latest Contact Info) Description 10/23/2003 Outpatient Historical [facility]iac Thoracic V[facility] S[facility] [address] [place] [address] Derek Tirado II, MD [address] [address] ATHEROSCL ART EXTREM INTERMIT ELIZABET ([facility]) (Primary Dx) Social History Tobacco Use Types Packs/Day Years Used Date Smoking Tobacco: Never Assessed Sex and Gender Information Value Date Recorded Sex Assigned at Not on file 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 Gender Identity Not on file Sexual Orientation Not on file documented as of this encounter Plan of Treatment Not on file documented as of this encounter Visit Diagnoses Diagnosis Atherosclerosis of [place] arteries of the extremities with intermittent claudication- Primary documented in this encounter Additional Health Concerns Infection Onset Date Last Indicated Resolved Time R/O COVID-19 2020 2020 06/08/2020 12:3 0 AM CDT COVID-19 2020 2020 07/06/2020 8:09 PM CDT documented as of this encounter Care Teams Bond Runner Relationship Specialty Start Date End Date Dulce Maria Alonzo FNP [address] [place] [phone] PCP - General Nurse Practitioner Family 08/01/20 documented as of this encounter
--- OUTSIDE RECORDS SUMMARY | 2025-04-30 13:33 | XMS_ITS | Clinical Summary ---
Author Organization [facility] Address [address] [place] [address] Care Team Providers Care Farm Equipment Operator Name Role Phone Dulce Maria Alonzo [facility] Primary Care Provider [phone] Allergies No known active allergies Medications Nebulizer & Compressor For Neb Device Use as directed TID. Diagnosis J44.9 Length of need: 99. 1 Each 0 08/26/20 15 Active diabetic shoes with inserts DETAILED ORDER AND STATEMENT OF CERTIFYING PHYSICIAN FOR DIABETIC SHOES W/ INSERTS Length of Need: 99 months. I certify that the patient has diabetes mellitus and amputation of the foot. Patient is being treated under comprehensive plan for diabetes and the patient needs shoes and inserts because of the condition. Dispense 1 pair/ year shoe and 3 pair/year inserts A5500 AND A5513. [address] [facility] [address] [place] [address] [phone]. 1 Each 05/28/20 17 Active aspirin (ECOTRIN EC) 81 mg Tablet, Delayed Release (E.C.) Take 1 Tablet (81 mg) by mouth daily. 90 Tablet 2 04/28/20 18 Active Additional Information Patient taking differently:81 mg OralDAILY WITH BREAKFAST, Reported on 08/01/2020 ipratropium-albu terol (DUONEB) 0.5 mg-3 mg(2.5 mg base)/3 mL Solution for Nebulization Take 3 mL by inhalation every 6 hours as needed for Shortness of Breath or Wheezing. 360 mL 4 06/01/20 18 Active tamsulosin (FLOMAX) 0.4 mg capsule Take 1 Capsule (0.4 mg) by mouth daily. 90 Capsule 4 10/04/19 19 Active simvastatin (ZOCOR) 40 mg tablet TAKE 1 TABLET BY MOUTH EVERY DAY WITH SUPPER.. 90 Tablet 4 10/04/19 19 Active ramipril (ALTACE) 2.5 mg capsule TAKE 1 CAPSULE BY MOUTH DAILY. 90 Capsule 4 10/19/19 19 Active glipiZIDE (GLUCOTROL) 5 mg tabletIndication s:Type 2 diabetes mellitus with diabetic neuropathy, without long-term current use of insulin ([facility]) Take 0.5 Tablets (2.5 mg) by mouth daily. 45 Tablet 4 10/28/19 Active ONETOUCH ULTRA BLUE TEST STRIP StripIndications :Type 2 diabetes mellitus with diabetic polyneuropathy, with long-term current use of insulin ([facility]) USE ONE STRIP TO CHECK GLUCOSE ONCE DAILY 100 Strip 2 11/25/19 Active alendronate (FOSAMAX) 70 mg tablet Take 1 Tablet (70 mg) by mouth every 7 days TAKE ON EMPTY STOMACH BEFORE OTHER MEDS, WITH 8OZ OF WATER, STAY UPRIGHT 30 MIN. 12 Tablet 4 01/10/20 Active lancets (Rated PeopleTOUCH DELICA LANCETS) 30 gauge Use to check blood sugar one time daily. DX: 250.00. 100 Each 3 01/21/20 19 Active gabapentin (NEURONTIN) 300 mg capsuleIndicatio ns:PVD (peripheral vascular disease) Take 1 Capsule (300 mg) by mouth 3 times daily. 270 Capsule 4 01/26/20 Active omeprazole (PriLOSEC) 20 mg Capsule, Delayed Release(E.C.) Take 20 mg by mouth 2 times daily. Active raNITIdine (ZANTAC) 150 mg tablet Take 1 tablet by mouth two times daily. 01/26/20 Active sertraline (ZOLOFT) 25 mg tablet Take 1 Tablet by mouth daily at bedtime. Active Wixela Inhub 250-50 mcg/dose disk inhaler Take 1 Puff by inhalation daily. 06/20/20 Active albuterol HFA 90 mcg inhaler Take 2 Puffs by inhalation. 06/20/20 Active dexAMETHasone (DECADRON) 6 mg Tablet TAKE 1 TABLET BY MOUTH ONCE DAILY 06/08/20 Active levothyroxine 50 mcg tablet 06/20/20 Active Spiriva with HandiHaler 18 mcg capsule 06/20/20 Active docusate sodium (COLACE) 100 mg capsule Take 1 Capsule (100 mg) by mouth 2 times daily. 20 Capsule 12/08/20 20 Active rivaroxaban (Xarelto) 2.5 mg Tablet Take 1 Tablet (2.5 mg) by mouth 2 times daily. 60 Tablet 2 08/20/20 20 Active acetaminophen-co deine (Tylenol-Codeine #3) 300-30 mg tabletIndication s:PVD (peripheral vascular disease) Take 1 Tablet by mouth every 4 hours as needed for Pain. 20 Tablet 08/20/20 20 Active clopidogreL (Plavix) 75 mg Tablet Take 1 Tablet (75 mg) by mouth daily. 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 Protein-calorie malnutrition, moderate 0 Limb ischemia 08/15/2020 Overview (08/16/2020): Added automatically from request for surgery [id number] Critical limb ischemia with history of revascularization of same extremity 07/10/2020 Atherosclerosis of left lower extremity with res t pain 07/10/2020 History of right below knee amputation 0 Protein-calorie malnutrition, moderate 0 Overview (11/04/2019): ASPEN Malnutrition Assessment and Findings Subcutaneous Fat Loss Assessment: Moderate fat loss (11/02/19 1600) Muscle Wasting Assessment: Moderate (11/02/19 1600) Edema: Trace or slight contour changes (mild) (11/02/19 1600) Hand Implement Mechanic: 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 winch driver (mild) (11/02/19 1600) Percentage of Energy: < or equal to 75% for > or equal to 3 months (moderate-social/envirn) (11/02/19 1600) Percentage of Weight Loss: <20% in 1 year (mild) (11/02/19 1600) Malnutrition Decision Dietitian Assessment: Moderate protein-calorie (11/02/19 1600) CAP (community acquired pneumonia) 01/09/2019 Pseudophakia of right eye 10/26/2018 Combined form of senile cataract of left eye Regular astigmatism, bilateral 10/26/2018 Myopia, right 10/26/2018 Hyperopia, left 10/26/2018 Viral hepatitis 10/08/2017 Hyperlipidemia 10/08/2017 High risk for readmission 08/26/2015 COPD (chronic obstructive pulmonary disease) Chronic obstructive pulmonar y disease with acute lower respiratory infection 08/22/2015 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 Continue supportive care. Type 2 diabetes mellitus wit h circulatory disorder, without long-term current use of insulin 10/15/2010 Assessment & Plan (07/23/2016 8:30 AM CLINICAL REGISTERED NURSE): Diabetes: Well controlled . Continue current plan of care. Medications reviewed and refilled/adjusted as indicated. See medication orders. Labs ordered/reviewed. Reminded to get yearly retinal exam. Addressed ADA/low CHO diet. Discussed symptoms and management of hypoglycemia.. Peripheral vascular complication due to diabetes: Stable. Continue diabetic management. Current antiplatelet/anticoagulant therapy which includes: ASA and Plavix. Manage risk factors likely to contribute to advancing disease. Regular exercise encouraged. Assessment & Plan (05/19/2016 8:44 AM CDT): Diabetes: Stable. Medications reviewed and refilled/adjusted as indicated. See medication orders. Labs ordered/reviewed. Reminded to get yearly retinal exam. Addressed ADA/low CHO diet. Encouraged aerobic exercise. CAD (coronary artery disease) 10/13/2010 Overview (02/16/2017): Lab Results Component Value Date/Time CHOLTOT 167 09/15/2016 09:12 AM HDL 48 09/15/2016 09:12 AM LDLCALC 88 09/15/2016 09:12 AM TRIGLYCERIDE 157 (H) 09/15/2016 09:12 AM Assessment & Plan (02/16/2017 9:31 AM CDT): Stable. S/P insertion of IVC (inferior vena caval) filte r 10/07/2010 Dyslipidemia 10/06/2010 Overview (02/16/2017): Lab Results Component Value Date/Time CHOLTOT 167 09/15/2016 09:12 AM HDL 48 09/15/2016 09:12 AM LDLCALC 88 09/15/2016 09:12 AM TRIGLYCERIDE 157 (H) 09/15/2016 09:12 AM Assessment & Plan (02/16/2017 9:31 AM CDT): Stable. Personal history of colonic polyps 01/10/2010 Amputee 07/10/2008 Overview (02/03/2017): Right BKA Essential hypertension, benign PVD (peripheral vascular disease) Assessment & Plan (09/15/2016 9:21 AM CLINICAL REGISTERED NURSE): Stable. Acute blood loss anemia Hemorrhagic shock Resolved Problems Problem Noted Date Diagnosed Date Resolved Date Pneumonia due to infectious organism 11/04/2019 11/04/2019 Sepsis 11/02/2019 11/04/2019 Elevated troponin 11/02/2019 11/04/2019 Pneumonia of right lower lob e due to Haemophilus influenzae 02/03/2017 10/08/2017 Overview (02/16/2017): Results for orders placed or performed during the hospital encounter of 02/03/17 XR CHEST PA AND LATERAL Narrative Exam: XR CHEST PA AND LATERAL Date/Time of Exam: 02/08/2017 9:23 AM Reason For Exam: Acute respiratory failure with hypoxia,Pneumonia of right lower lobe due to infectious organism,Closed fracture of multiple ribs of left side, initial encounter,Pneumonia Findings: The cardiomediastinal silhouette is normal in size and contour. Surgical changes of sternotomy and CABG are redemonstrated. The lung volumes are increased with coarsened interstitial changes. Patchy reticulonodular airspace disease is redemonstrated throughout the right midlung. No pleural effusion or pneumothorax. No acute osseous abnormality. Impression IMPRESSION: Right midlung pneumonia without significant interval change from the prior study. XR CHEST PA OR AP Impression IMPRESSION: Please see below. Exam: XR CHEST PA OR AP Date/Time of Exam: 02/03/2017 7:37 AM Reason For Exam: Shortness of Breath SOB. Findings: Comparison made with prior exam dated 12/29/2016. Interval appearance of ill-defined airspace opacities at the lateral periphery of the right midlung. Left lung remains clear. Underlying pulmonary emphysema noted. No pleural effusion seen. Heart size normal. Pat and pulmonary vasculature within normal limits. IMPRESSION: Interval appearance of right midlung zone airspace disease compared with 12/29/2016. Pulmonary emphysema. [id number] Results for orders placed or performed during the hospital encounter of 02/01/17 XR RIBS UNILATERAL LEFT W PA CHEST Impression IMPRESSION: Please see below. Exam: XR RIBS UNILATERAL LEFT W PA CHEST Date/Time of Exam: 02/01/2017 10:50 AM Reason For Exam: Contusion of rib, left, subsequent encounter Comparison: PA and lateral chest 12/29/2016. Findings: PA view of the chest on two films demonstrate the patient to be status post median sternotomy. The lungs are hyperaerated. Old healed fracture deformity of the anterior right fifth rib is present. A stable cardiomediastinal silhouette without acute airspace disease, effusion, or pneumothorax is identified. Bibasilar nipple shadows noted. Four views of the left ribs demonstrate osteopenia and possible subtle cortical step-off of the lateral left sixth rib. Cortical step-off of the posterior lateral left fifth rib is seen. Left acromioclavicular joint degenerative change noted. Old fracture deformities of the posterior left eighth and ninth ribs noted. Impression: 1. Status post median sternotomy with radiographic findings consistent with underlying chronic obstructive pulmonary disease. Clinical correlation is recommended. No acute cardiopulmonary process is otherwise identified. 2. Acute fractures of the left fifth and sixth ribs. 3. Old healed bilateral rib fracture deformities. [id number] Results for orders placed or performed during the hospital encounter of 08/21/15 XR RIBS UNILATERAL RIGHT W PA CHEST Narrative PROCEDURE RIGHT RIB SERIES with CXR, 21 August 2015 DESCRIPTION Frontal view the chest is unremarkable for contusion or pneumothorax. There is hyperinflation. Postoperative changes of the sternum and mediastinum are noted. There is some scarring or atelectasis in the left lung base behind the left heart border. AP view of the right ribs, AP view of the ribs centered below the diaphragm, and left and right oblique views of the right ribs show no displaced rib fracture, pneumothorax or pulmonary contusion. IMPRESSION 1. pulmonary hyperinflation with no pneumothorax or pulmonary contusion seen 2. negative for displaced fracture of the right ribs Lab Results Component Value Date/Time WBC 8.5 02/07/2017 05:20 AM HGB 12.8 (L) 02/07/2017 05:20 AM HGBPOC 10.9 +/-3 g/dL 10/15/2010 06:49 PM HCT 37.1 (L) 02/07/2017 05:20 AM PLT 253 02/07/2017 05:20 AM MCV 89.8 02/07/2017 05:20 AM Assessment & Plan (02/16/2017 9:32 AM CDT): Improving. Takes last antibiotic today Pneumonia of both lower lobe s due to infectious organism 08/22/2015 03/10/2018 Compensated respiratory alkalosis 08/22/2015 08/25/2015 Acute respiratory failure with hypoxemia 08/22/2015 02/06/2017 Neutrophilia 08/22/2015 08/25/2015 Hyponatremia 08/22/2015 08/23/2015 Hypochloremic alkalosis 08/22/201508/13 Rib pain on right side 08/22/201509/15 Chronic anticoagulation 10/07/201005/15 Chest discomfort 10/06/2010 03/07/2014 Abnormal stress test 10/06/2010 014 DVT (deep venous thrombosis) 03/07/2014 Overview (10/07/2010): Updating IMO/ICD9 Code and Description Ischemia 03/07/2014 Immunizations Immunization Administration Dates Next Due (PNEUMOVAX 23)(50 YRS UP) PN EUMOCOCCAL POLYSACCHARIDE (PPV23) 0.5 ML, IM 10/20/2010,04/28/2008 (PREVNAR 13)(6 WKS UP) PNEUM OCOCCAL CONJUGATE (PCV13) 0.5 ML, IM 08/26/2015 INFLUENZA VACCINE QUADRIVALE NT 3 YR UP PF IM 08/26/2015 Influenza Seasonal Unspecifi ed Formulation IM 06/28/2019,2016,07/01/2006 Influenza Vaccine High Dose 65+ Yrs IM 8,07/19/2017 Influenza Vaccine Quad Split 3+ Yrs Im 4 Influenza Vaccine Split 3+ Yrs PF IM 10/20/2010 Family History Medical History Relation Name Comments Heart Disease Brother Healthy Daughter 1 Healthy Daughter 2 Healthy Daughter 3 Healthy Daughter 4 Other Father NE: age 51 Unknown Maternal Grandfather Unknown Maternal Grandmother Diabetes Mother Heart Disease Mother Hypertension Mother Unknown Paternal Grandfather Unknown Paternal Grandmother Glaucoma Neg Hx Macular Degen Neg Hx Relation Name Status Comments Brother Daughter 1 Daughter 2 Daughter 3 Daughter 4 Father Maternal Grandfather Maternal Grandmother Mother Paternal Grandfather Paternal Grandmother Social History Tobacco Use Types Packs/Day Years Used Date Smoking Tobacco: Former Cigarettes 2 60 0 05/14/1946 - 05/14/2008 Smokeless Tobacco: Never Alcohol Use Standard Drinks/Week Comments No 0 (1 standard drink = 0.6 oz pur e alcohol) Sex and Gender Information Value Date Recorded Sex Assigned at Not on file Legal Sex Male 3:16 AM CLINICAL REGISTERED NURSE Gender Identity Not on file Sexual Orientation Not on file Last Filed Vital Signs Vital Sign Reading Time Taken Comments Blood Pressure 137/59 08/20/2020 9:00 AM CLINICAL REGISTERED NURSE Pulse 75 08/20/2020 8:25 AM CLINICAL REGISTERED NURSE Temperature 36.6 C (97.8 F) 08/20/2020 8:25 AM CLINICAL REGISTERED NURSE Respiratory Rate 18 08/20/2020 8:25 AM CLINICAL REGISTERED NURSE Oxygen Saturation 100% 08/20/2020 8:25 AM CLINICAL REGISTERED NURSE Inhaled Oxygen Concentration - - Weight 71.1 kg (156 lb 11.2 oz) 08/20/2020 5:00 AM CLINICAL REGISTERED NURSE Height 180.3 cm (5' 11 ) 08/20/2020 5:00 AM CLINICAL REGISTERED NURSE Body Mass Index 21.86 08/20/2020 5:00 AM CLINICAL REGISTERED NURSE Plan of Treatment Health Maintenance Due Date Last Done Comments DTAP/TDAP/TD VACCINES (1 - Tdap) 1961 ZOSTER VACCINE (1 of 2) 1992 RSV VACCINE (60+ or ) (1 - 1-dose 75+ series) 2017 LDL CHOLESTEROL ANNUAL 07/19/2018 7, 09/15/2016, 10/30/2015, Additional history exists DIABETES HBA1C Q 6 MONTHS 12/06/20182017, 06/08/2018, 07/19/2017, Additional history exists DIABETES MICROALBUMIN ANNUAL SCREEN 06/01/2019 06/01/2018, 07/19/2017, 09/15/2016, Additional history exists DIABETES ANNUAL FOOT EXAM 10/26/20192018, 04/28/2017, 07/23/2016, Additional history exists DIABETES ANNUAL RETINAL EXAM 10/26/2019, 10/26/2018, 10/26/2018, Additional history exists INFLUENZA VACCINE (#1) 2025 9, 06/01/2018, 07/19/2017, Additional history exists PNEUMOCOCCAL VACCINE 50+ YEARS Completed 1 10/27/2014, 10/20/2010, 04/28/2008 COLORECTAL SCREENING Discontinued 08/15/2018, 01/20/2013, 01/19/2013 Colorectal Cancer Screening Discontinued FIT-DNA Q 3 years Discontinued FIT/FOBT Q 1 year Discontinued Flex Sig/CT Colonography Q 5 years Discontinued Medical Devices Implanted Type Area Mussel Opener Device Identifier Shelf Expiration Date Model / Serial / Lot Clip Ligating Horizon Med Ti [id number] - Csc - [id number] Implanted:Qty: 1 on 07/10/2020 by Iftikhar Coleman MD at Clip Left: Leg TELEFLEX- WECK CLOSURE SYS [id number] 08/29/2024 [id number] / / [id number] Sealant Mynx Implement Mechanic 6-7fr [id number] - [id number] Implanted:Qty: 1 on 08/17/2020 at Closure Device Left: Groin ACCESS CLOSURE 06/12/2022 [id number] / / [id number] Log [id number] - Bard Patches, P[place], Barbara, Fabrics - 1 - [place] Ptfe Thck 1.6mmx2.5x2.5c m [id number] Implanted:Qty: 1 on 10/15/2010 at Graft CR BARD- [employer] 08/12/2015 [id number] / / [id number] Hemostatic Surgiflo 8ml W/Thrombin 2994 - [id number] Implanted:Qty: 1 on 07/10/2020 by Iftikhar Coleman MD at Hemostatic Left: Leg J[employer]J- [employer] [id number] 06/12/2021 2994 / / [id number] Hemostatic Surgiflo 8ml W/Thrombin 2994 - [id number] Implanted:Qty: 1 on 07/10/2020 by Iftikhar Coleman MD at Hemostatic Left: Leg J&J- [employer] [id number] 06/12/2021 2994 / / [id number] Hemostatic Surgiflo 8ml W/Thrombin 2994 - [id number] Implanted:Qty: 1 on 08/17/2020 by Iftikhar Coleman MD at Hemostatic Left: Groin J&J- [employer] [id number] 09/12/2021 2994 / / [id number] Hemostatic Surgiflo 8ml W/Thrombin 2994 - [id number] Implanted:Qty: 1 on 08/17/2020 by Iftikhar Coleman MD at Hemostatic Left: Groin J&J- [employer] [id number] 09/12/2021 2994 / / [id number] Ring Vein Marking 10mm 35-5832 Implanted:Qty: 2 on 10/15/2010 at Other TELEFLEX- PILL WECK LISA L P 35-5832 / / Description:placed around by pass grafts to heart, load#[id number] Stent Vasc Supera 6fr R-40-604-120-P 6 - [id number] Implanted:Qty: 1 on 06/28/2017 by Malcom Hernandez MD at Stent Right: Groin JETT LAB 03/12/2018 S-65-100 -120-P6 / / [id number] Stent Abslt Pv [id number] - [id number] Implanted:Qty: 1 on 06/28/2017 by Malcom Hernandez MD at Stent Right: Groin JETT- VASC DEVICE 05/13/2020 [id number] / / [id number] Stent- 9 Implanted:Qty: 1 on 01/02/2019 by Iftikhar Coleman MD Stent [id number] 09/12/2020 / / [id number] Stent Abslt Pv [id number]/10/2018 Implanted:Qty: 2 on 01/02/2019 by Iftikhar Coleman MD Stent JETT- VASC DEVICE [id number] 07/13/2021 [id number] 60 / / [id number] Stent Vasc Supera 6fr Z-95-963-120-P 6 - [id number] Implanted:Qty: 1 on 08/17/2020 by Iftikhar Coleman MD at Stent Left: Groin JETT- VASC DEVICE [id number] 04/12/2021 S-50-060 -120-P6 / / [id number] Graft Vasc Propaten [id number] - [id number] Implanted:Qty: 1 on 07/10/2020 by Iftikhar Coleman MD at Tissue Left: Leg W [employer] [id number] 06/21/2023 [id number] / / [id number] Procedures Procedure Name Priority Date/Time Associated Diagnosis Comments HEMOGLOBIN A1C Routine 06/08/2018 10:40 AM CDT Type 2 diabetes mellitus with diabetic peripheral angiopathy without gangrene, without long-term current use of insulin ([facility]) MICROALBUMIN/CREATI NINE RATIO, RANDOM UR Routine 06/01/2018 9:40 AM CDT Type 2 diabetes mellitus with other circulatory complication, without long-term current use of insulin ([facility]) LIPID PANEL Routine 07/19/2017 9:13 AM CLINICAL REGISTERED NURSE Type 2 diabetes mellitus with diabetic peripheral angiopathy without gangrene, without long-term current use of insulin ([facility]) DIABETES EYE EXAM Routine 03/03/2016 from Last 3 Months or Most Recently Relevant to Health Maintenance Results * HEMOGLOBIN A1C (06/08/2018 10:40 AM CDT) HEMOGLOBIN A1C 5.6 4.0 - 6.0 % 06/08/2018 9:09 PM CDT [facility] EST. AVG GLUCOSE, A1C 114 mg/dL 06/08/2018 9:09 PM CDT [facility] Blood Venipuncture / Unknown 06/08/2018 10:40 AM CDT 06/08/2018 8:25 PM CDT [facility] - 06/08/2018 9:09 PM CDT HGB A1C INTERPRETATION NORMAL: <5.7% PRE-DIABETES: 5.7 - 6.4% DIABETES: 6.5% OR GREATER Falsely low A1C measurements can occur when: 1. Anemia and/or hemolytic anemia is present. 2. Hemoglobin variants present. 3. Renal failure. 4. Transfusion of blood product in the last 120 days. We recommend ordering a fructosamine test([id number]) to more accurately assess glycemic status if any of the above conditions are present. Dulce Maria Alonzo [facility] CHEMISTRY ORDERABLES Final Result [facility] CLIA# [id number] [address] [place] [id number] * (ABNORMAL) MICROALBUMIN/CREATININE RATIO, RANDOM UR (06/01/2018 9:40 AM CDT) MICROALBUMIN, URINE 2.6 No Reference Range mg/dL 06/01/2018 8:49 PM CDT [facility] CREATININE, URINE 41.3 40.0 - 278.0 mg/dL 06/01/2018 8:49 PM CDT [facility] Comment: Reference Range varies with fluid intake and diet. MICROALBUMIN/ CREAT RATIO, UR 63.0(H) <17.0 mg/g 06/01/2018 8:49 PM CDT [facility] Urine URINE SPECIMEN OBTAINED BY CLEAN CATCH PROCEDURE / Unknown Collection / Unknown 06/01/2018 9:40 AM CDT 06/01/2018 8:19 PM CDT Narrative [facility] - 06/01/2018 8:49 PM CDT Condition Microalbumin/Creat ratio Normal Males <17 Normal Females <25 Microalbuminuria Males 17-299 Microalbuminuria Females 25-299 Overt proteinuria >=300 Dulce Maria [place]irieSmartsjulio césar MOBLEYP URINE ORDERABLES Final Resu lt [facility] CLIA# [id number] [address] [place] [id number] * LIPID PANEL (07/19/2017 9:13 AM [facility]) CHOLESTEROL 156 <200 mg/dL 07/19/2017 9:00 PM [facility] TRIGLYCERIDE 98 <150 mg/dL 07/19/2017 9:00 PM [facility] HDL 50 40 - 59 mg/dL 07/19/2017 9:00 PM [facility] LDL CALCULATED 86 <100 mg/dL 07/19/2017 9:00 PM [facility] NON-HDL CHOLESTEROL 106 <130 mg/dL 07/19/2017 9:00 PM [facility] [place] Blood Venipuncture / Unknown 07/19/2017 9:13 AM CLINICAL REGISTERED NURSE 07/19/2017 8:27 PM CLINICAL REGISTERED NURSE Narrative [facility] - 07/19/2017 9:00 PM CLINICAL REGISTERED NURSE TOTAL CHOLESTEROL mg/dL Desirable <200 Borderline high 200-239 High >=240 TRIGLYCERIDES mg/dL Normal <150 Borderline high 150-199 High 200-499 Very high >=500 HDL CHOLESTEROL mg/dL Low <40 Normal 40-59 Desirable >=60 NON HDL CHOLESTEROL mg/dL Optimal <130 Near Optimal 130-159 Borderline High 160-189 Very High >=190 Calculated LDL mg/dL Optimal <100 Near Optimal 100-129 Borderline High 130-159 High 160-189 Very High >=190 ATPIII Guidelines Reference Ranges for Lipid Panels (NCEP/AMA) Dulce Maria Carrie Alonzo SEM MANAGER CHEMISTRY ORDERABLES Final Result [facility] CLIA# [id number] [address] [place] [address] * DIABETES EYE EXAM (03/03/2016) us Abstract Spg Provider HEALTH MAINTENANCE Final R esult from Last 3 Months or Most Recently Relevant to Health Maintenance Insurance MEDICAID [facility] DUAL COMPLETE [facility] [place] [address] Advance Directives For more information, please contact: [phone] Documents on File Type Date Recorded Patient Credit Review Analyst Expl anation Advance Directive POA 01/24/2008 * Full Code (Latest Code Status on File) Date Activated Date Inactivated Comments 08/16/2020 5:39 AM 08/20/2020 3:59 PM * Full Code Date Activated Date Inactivated Comments 07/10/2020 4:29 PM 07/13/2020 4:55 PM * Full Code Date Activated Date Inactivated Comments 11/02/2019 5:00 AM 11/04/2019 4:52 PM * NO CPR (In Event of Cardiopulmonary Arrest) Date Activated Date Inactivated Comments 01/09/2019 7:57 PM 01/10/2019 4:17 PM Question Answer Comments Mechanical Ventilation (for respiratory distress) - Invasive (i.e. intubation): No Mechanical Ventilation (for respiratory distress) - Non-Invasive (i.e. BiPAP, CPAP): Yes Cardioversion - (Allow prior to Cardiopulmonary Arrest): No Vasopressors - (Allow prior to Cardiopulmonary A rrest): No Inotropic Agents - (Allow prior to Cardiopulmona ry Arrest): No External Pacing - (Allow prior to Cardiopulmonar y Arrest): No Invasive Monitoring - (Allow prior to Cardiopulm onary Arrest): No * Full Code Date Activated Date Inactivated Comments 01/09/2019 7:40 PM 01/09/2019 7:57 PM Care Teams Farm Equipment Operator Relationship Specialty Start Date End Date Dulce Maria Alonzo FNP [address] [place] [address] PCP - General Nurse Practitioner Family 08/01/20
--- OUTSIDE RECORDS SUMMARY | 2025-04-30 13:33 | XMS_ITS | Encounter Summary ---
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
--- OUTSIDE RECORDS SUMMARY | 2025-04-30 13:33 | XMS_ITS | Encounter Summary ---
Author Organization [facility] Address [address] [place] [address] Care Team Providers Care Remodeler Name Role Phone Dulce Maria Alonzo Primary Care Provider [phone] Encounter Details Date Type Department Care Team (Late st Contact Info) Description 10/11/[address] 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 Pulse: 0. Not dictated. BP: 140/80. CHIEF COMPLAINT: Needs med refills on his warfarin and diltiazem CD. Patient has seen Dr. Ruiz, cardiovascular and thoracic surgeon. He has a thrombosed graft and is going to require surgery on October. OBJECTIVE: A 67-year-old white male, alert and oriented x3, in no acute distress. SKIN: Warm and dry. Color pink. HEENT: Within normal limits. NECK: Supple. LUNGS: Clear. HEART: S1, S2 clear. Regular rate and rhythm. No murmur noted. ABDOMEN: Soft and round. Bowel sounds present x4 quadrants. No tenderness or organomegaly is noted. ASSESSMENT: Coumadin therapy, thrombosed graft. PLAN: The patient will have a pro-time performed today. He was instructed to keep his scheduled appointment with the surgeon for the . Was given a refill on his warfarin 5 mg one everyday, alternate 1/2 tab the next, #30. Diltiazem CD 180 mg 1 everyday, #30 with three refills. Instructed on themedicine. Verbalized understanding how to use the medication. Return if symptoms do not resolve. KATALINA Salinas D.O. [facility] Electronically Signed by KATALINA Salinas 10/31/2007 12:12 , A, herson Document #: [id number] cc: OR GARMENT FITTER documented in this encounter Plan of Treatment Not on file documented as of this encounter Visit Diagnoses Not on filedocumented in this encounter Additional Health Concerns Infection Onset Date Last Indicated Resolved Time R/O COVID-19 2020 2020 06/08/2020 12:3 0 AM CDT COVID-19 2020 2020 07/06/2020 8:09 PM CDT documented as of this encounter Care Teams Remodeler Relationship Specialty Start Date End Date Dulce Maria Alonzo FNP [address] [place] [address] PCP - General Nurse Practitioner Family 08/01/20 documented as of this encounter
--- OUTSIDE RECORDS SUMMARY | 2025-04-30 13:33 | XMS_ITS | Encounter Summary ---
Author Organization [facility] Address [address] [place] [address] Care Team Providers Care Relief Driller Name Role Phone Dulce Maria Alonzo Primary Care Provider [phone] Encounter Details Date Type Department Care Team (Latest Contact Info) Description 04/12/2003 Outpatient Historical [facility] General Surgery [address] [address] [address] [place] [phone] [place] [address] [address] SURGERY FOLLOWUP, UNSPEC (Primary Dx) Social History Tobacco Use Types Packs/Day Years Used Date Smoking Tobacco: Never Assessed Sex and Gender Information Value Date Recorded Sex Assigned at Not on file Legal Sex Male 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 Gender Identity Not on file Sexual Orientation Not on file documented as of this encounter Plan of Treatment Not on file documented as of this encounter Visit Diagnoses Diagnosis Follow-up examination, following unspecified surgery- Primary documented in this encounter Additional Health Concerns Infection Onset Date Last Indicated Resolved Time R/O COVID-19 2020 2020 06/08/2020 12:3 0 AM CDT COVID-19 2020 2020 07/06/2020 8:09 PM CDT documented as of this encounter Care Teams Relief Driller Relationship Specialty Start Date End Date Dulce Maria Alonzo FNP [address] [place] [address] PCP - General Nurse Practitioner Family 08/01/20 documented as of this encounter
--- OUTSIDE RECORDS SUMMARY | 2025-04-30 13:33 | XMS_ITS | Encounter Summary ---
Author Organization [facility] Address [address] [place] [address] Care Team Providers Care Clerical Transcriber Name Role Phone Dulce Maria Alonzo Primary Care Provider Encounter Details Date Type Department Care Team (Latest Contact Info) Description 08/27/2003 Outpatient Historical [facility] Flip Robertson MD [address] [facility] [address] [place] [address] ATHEROSCL ART EXTREM W ULCERATION ([facility]) (Primary Dx) Social History Tobacco Use Types Packs/Day Years Used Date Smoking Tobacco: Never Assessed Sex and Gender Information Value Date Recorded Sex Assigned at Not on file Legal Sex Male 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 Gender Identity Not on file Sexual Orientation Not on file documented as of this encounter Plan of Treatment Not on file documented as of this encounter Visit Diagnoses Diagnosis 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
--- OUTSIDE RECORDS SUMMARY | 2025-04-30 13:33 | XMS_ITS | Clinical Summary ---
Author Organization [facility] Address [address] [place] [address] Care Team Providers Care Sampling Theory Teacher Name Role Phone FairfieldDulce Maria angela ANNE MARIE Primary Care Provider [phone] Allergies No known active allergies Medications tamsulosin (FLOMAX) 0.4 MG 24 hr capsule Take 0.4 mg by mouth 1 (one) time each day 9 Active simvastatin (ZOCOR) 40 MG tablet TAKE 1 TABLET BY MOUTH ONCE DAILY WITH SUPPER 4 9 Active sertraline (ZOLOFT) 25 MG tablet Take 1 tablet by mouth at bed time Active raNITIdine (ZANTAC) 150 MG tablet Take 1 tablet by mouth two times daily. 9 Active ipratropium-alb uterol (DUO-NEB) 0.5-2.5 mg/3 mL nebulizer solution Inhale 3 mL every 6 (six) hours if needed 8 Active glipiZIDE (GLUCOTROL) 5 MG tablet TAKE 1 2 (ONE HALF) TABLET BY MOUTH ONCE DAILY 4 9 Active gabapentin (NEURONTIN) 300 MG capsule Take 300 mg by mouth 3 times a day 9 Active clotrimazole (LOTRIMIN) 1 % cream APPLY ONE APPLICATION TO THE BOTTOM OF FOOT DAILY 2 9 Active alendronate (FOSAMAX) 70 MG tablet TAKE 1 TABLET ( 70 MG ) BY MOUTH EVERY 7 DAYS. TAKE ON EMPTY STOMACH BEFORE OTHER MEDS WITH 8 OUNCES OF WATER STAY UPRIGHT 30 MINUTES 4 9 Active aspirin 81 MG tablet Take 81 mg by mouth daily 8 Active ramipril (ALTACE) 2.5 MG capsule Take 1 capsule by mouth once daily 90 capsule 1 Active Active Problems Problem Noted Date Diagnosed Date Microalbuminuria 08/06/2019 Type 2 diabetes mellitus 08/06/2019 Family History Medical History Relation Comments Heart disease Father 2 Diabetes Mother 2 Relation Status Comments Father 1 Father 2 Mother 1 Mother 2 Social History Tobacco Use Types Packs/Day Years [...] Sign Reading Time Taken Comments Blood Pressure 110/50 09/07/2019 10:17 AM GUARD MANAGER Pulse 62 09/07/2019 10:17 AM GUARD MANAGER Temperature - - Respiratory Rate - - Oxygen Saturation - - Inhaled Oxygen Concentration - - Weight 72.2 kg (159 lb 1.6 oz) 09/07/2019 10:17 AM GUARD MANAGER Height 182.9 cm (6') 09/07/2019 10:17 AM GUARD MANAGER Body Mass Index 21.58 09/07/2019 10:17 AM GUARD MANAGER Plan of Treatment Health Maintenance Due Date Last Done Comments Hepatitis B Vaccine (1 of 3 - Risk 3-dose series) 2002 Diabetes: Hemoglobin A1C 08/06/2019 06/08/2018 Diabetes: Pedal Pulse Checked 08/06/2019 Diabetes: Sensory Foot Exam 08/06/2019 Diabetes: Visual Foot Exam 08/06/2019 Diabetes: Ophthalmology Exam 10/26/2019 10/26/2018 Influenza Vaccine (#1) 2025 9, 06/01/2018, 07/19/2017, Additional history exists Pneumococcal Vaccine: 50+ Years Completed 08/26/2015, 10/20/2010, 04/28/2008 Pneumococcal Vaccine: Peds ( 0 to 5 Years) and At-Risk Patients (6 to 49 Years) Discontinued 08/26/2015, 10/20/2010, 04/28/2008 Procedures Procedure Name Priority Date/Time Associated Diagnosis Comments HEMOGLOBIN A1C Routine 06/08/2018 12:00 AM CDT from Last 3 Months or Most Recently Relevant to Health Maintenance Results * Hemoglobin A1c (06/08/2018 12:00 AM CDT) Hemoglobin A1C 5.6 4.0 - 6.0 % SNA Comment new pt lab/dd SNA 06/08/2018 us Sna Conversion LAB BLOOD ORDERABLES Final Resul t SNA from Last 3 Months or Most Recently Relevant to Health Maintenance Insurance Medicaid [place] ([id number]) UHC Medicare Care Teams Sampling Theory Teacher Relationship Specialty Start Date End Date Dulce Maria Alonzo FNP [address] [place] [address] PCP - General Internal Medicine 07/19/19
--- OUTSIDE RECORDS SUMMARY | 2025-04-30 13:33 | XMS_ITS | Encounter Summary ---
Author Organization [facility] Address [address] [place] [address] Care Team Providers Care Leather Tooler Name Role Phone Dulce Maria Alonzo Primary Care Provider [phone] Encounter Details Date Type Department Care Team (Late st Contact Info) Description 07/17/2003 Outpatient Historical [facility] Medicine [place] [address] [facility] [address] [place] [phone] Dulce Maria Alonzo FNP [address] [place] [address] Social History Tobacco Use Types Packs/Day Years Used Date Smoking Tobacco: Never Assessed Sex and Gender Information Value Date Recorded Sex Assigned at Not on file Legal Sex Male 3:16 AM SUPERVISOR REACTOR FUELING Gender Identity Not on file Sexual Orientation [...] documented as of this encounter Care Teams Leather Tooler Relationship Specialty Start Date End Date Dulce Maria Alonzo FNP [address] [place] [address] PCP - General Nurse Practitioner Family 08/01/20 documented as of this encounter
--- OUTSIDE RECORDS SUMMARY | 2025-04-30 13:33 | XMS_ITS | Encounter Summary ---
Author Organization [facility] Address [address] [place] [address] Care Team Providers Care Heating Element Builder Name Role Phone Dulce Maria Alonzo Primary Care Provider Encounter Details Date Type Department Care Team (Latest Contact Info) Description 04/16/2005 Outpatient Historical [facility] Medicine [place] [address] [facility] [address] [place] [address] Dulce Maria Alonzo FNP [address] [place] [address] AFTERCARE PENITENTIARY ANTICOAG USE (Primary Dx) Social History Tobacco Use Types Packs/Day Years Used Date Smoking Tobacco: Never Assessed Sex and Gender Information Value Date Recorded Sex Assigned at Not on file Legal Sex Male 3:16 AM LEASE OUT MAN Gender Identity Not on file Sexual Orientation Not on file documented as of this encounter Plan of Treatment Not on file documented as of this encounter Visit Diagnoses Diagnosis custodial (current) use of anticoagulants- Primary Long-term (current) use of anticoagulants documented in this encounter Additional Health Concerns Infection Onset Date Last Indicated Resolved Time R/O COVID-19 2020 2020 06/08/2020 12:3 0 AM CDT COVID-19 2020 2020 07/06/2020 8:09 PM CDT documented as of this encounter Care Teams Heating Element Builder Relationship Specialty Start Date End Date Dulce Maria Alonzo FNP [address] [place] [address] PCP - General Nurse Practitioner Family 08/01/20 documented as of this encounter
--- OUTSIDE RECORDS SUMMARY | 2025-04-30 13:34 | XMS_ITS | Encounter Summary ---
Author Organization [facility] Address [address] [place] [address] Care Team Providers Care Copy Center Associate Name Role Phone Dulce Maria Alonzo Primary Care Provider Encounter Details Date Type Department Care Team (Latest Contact Info) Description 10/12/2006 Outpatient Historical [facility] Medicine [place] [address] [facility] [address] [place] [phone] Dulce Maria Alonzo FNP [address] [place] [address] Other and Unspecified Coagulation Defects (Primary Dx) Social History Tobacco Use Types Packs/Day Years Used Date Smoking Tobacco: Never Assessed Sex and Gender Information Value Date Recorded Sex Assigned at Not on file Legal Sex Male 3:16 AM JTAC Gender Identity Not on file Sexual Orientation [...] documented as of this encounter Care Teams Copy Center Associate Relationship Specialty Start Date End Date Dulce Maria Alonzo FNP [address] [place] [address] PCP - General Nurse Practitioner Family 08/01/20 documented as of this encounter
--- OUTSIDE RECORDS SUMMARY | 2025-04-30 13:34 | XMS_ITS | Encounter Summary ---
Author Organization [facility] Address [address] [place] [address] Care Team Providers Care Valve Seater Operator Name Role Phone Dulce Maria Alonzo Primary Care Provider Encounter Details Date Type Department Care Team (Latest Contact Info) Description 07/01/2006 Outpatient Historical [facility] Medicine [place] [address] [facility] [address] [place] [address] Dulce Maria Alonzo FNP [address] [place] [address] Other and Unspecified Coagulation Defects (Primary Dx); Encounter for Long-Term (Current) Use of Anticoagulants; Vaccine for influenza Social History Tobacco Use Types Packs/Day Years Used Date Smoking Tobacco: Never Assessed Sex and Gender Information Value Date Recorded Sex Assigned at Not on file Legal Sex Male 3:16 AM MEDICAL 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 Gender Identity Not on file Sexual Orientation Not on file documented as of this encounter Plan of Treatment Not on file documented as of this encounter Visit Diagnoses Diagnosis Other and unspecified coagulation defects- Primary ad terminal makeup operator (current) use of anticoagulants Long-term (current) use of anticoagulants Vaccine for influenza Need for prophylactic vaccination and inoculation against influenza documented in this encounter Additional Health Concerns Infection Onset Date Last Indicated Resolved Time R/O COVID-19 2020 2020 06/08/2020 12:3 0 AM CDT COVID-19 2020 2020 07/06/2020 8:09 PM CDT documented as of this encounter Care Teams Valve Seater Operator Relationship Specialty Start Date End Date Dulce Maria Alonzo FNP [address] [place] [address] PCP - General Nurse Practitioner Family 08/01/20 documented as of this encounter
--- OUTSIDE RECORDS SUMMARY | 2025-04-30 13:34 | XMS_ITS | Encounter Summary ---
Author Organization [facility] Address [address] [place] [address] Care Team Providers Care Technical Training Specialist Name Role Phone Dulce Maria Alonzo Primary Care Provider Encounter Details Date Type Department Care Team (Late st Contact Info) Description 09/23/2007 Outpatient Historical [facility] [place] [address] [place] [address] Social History Tobacco Use Types Packs/Day Years Used Date Smoking Tobacco: Never Assessed Sex and Gender Information Value Date Recorded Sex Assigned at Not on file Legal Sex Male 3:16 AM PROFESSOR OF MUSIC Gender Identity Not on file Sexual Orientation [...] as of this encounter Care Teams Technical Training Specialist Relationship Specialty Start Date End Date Dulce Maria Alonzo FNP [address] [place] [address] PCP - General Nurse Practitioner Family 08/01/20 documented as of this encounter
--- OUTSIDE RECORDS SUMMARY | 2025-04-30 13:34 | XMS_ITS | Encounter Summary ---
Author Organization [facility] Address [address] [place] [address] Care Team Providers Care Paper Sales Representative Name Role Phone Dulce Maria Alonzo COMMUNITY SERVICE WORKER Primary Care Provider Encounter Details Date Type Department Care Team (Latest Contact Info) Description 04/06/2018 Ancillary Orders [facility] Orthopedics - [facility] [address] [place] [address] Ariel Nowak MD [address] [place] [address] Status post below knee amputation of right lower extremity (CMS/[facility]) Social History Tobacco Use Types Packs/Day Years Used Date Smoking Tobacco: Former Cigarettes 2 60 0 05/14/1946 - 05/14/2008 Smokeless Tobacco: Never Alcohol Use Standard Drinks/Week Comments No 0 (1 standard drink = 0.6 oz pur e alcohol) Sex and Gender Information Value Date Recorded Sex Assigned at Not on file Legal Sex Male 3:16 AM HELPER SHEAR OPERATOR Gender Identity Not on file Sexual Orientation Not on file documented as of this encounter Plan of Treatment Not on file documented as of this encounter Results * XR KNEE 1 OR 2 VW RIGHT (04/06/2018 10:42 AM CDT) Anatomical Region Laterality Modality Lower Extremity Computed Radiogr aphy Narrative 04/12/2018 6:02 PM CDT AP and lateral x-rays of his right knee were reviewed. He has significant calcification of the posterior vasculature with some surgical clips in the soft tissue around the stump. There is a little bit of lucency at the distal end of his stump at that tibia, two cystic areas in the distal end of that tibia. No other obvious acute fracture or dislocation appreciated. us Ariel Nowak MD DIAGNOSTIC IMAGING ORDERABLES Final Result documented in this encounter Visit Diagnoses Diagnosis Status post below knee amputation of right lower extremity (CMS/HCC) Status post below knee amputation of right lower extremity (CMS/HCC) documented in this encounter Additional Health Concerns Infection Onset Date Last Indicated Resolved Time R/O COVID-06/06/2020 2020 06/08/2020 12:3 0 AM CDT COVID-06/06/2020 2020 07/06/2020 8:09 PM CDT Assessment Noted Time PHQ-9 Depression Total Score: 1 04/21/20 17 8:00 AM CDT documented as of this encounter Care Teams Paper Sales Representative Relationship Specialty Start Date End Date Dulce Maria Alonzo FNP [address] [place] [address] PCP - General Nurse Practitioner Family 08/01/20 documented as of this encounter
--- OUTSIDE RECORDS SUMMARY | 2025-04-30 13:34 | XMS_ITS | Encounter Summary ---
Author Organization [facility] Address [address] [place] [address] Care Team Providers Care Nutritionists Name Role Phone Dulce Maria Alonzo Primary Care Provider Encounter Details Date Type Department Care Team (Latest Contact Info) Description 08/03/2006 Outpatient Historical [facility] Medicine [place] [address] [facility] [address] [place] [address] Dulce Maria Alonzo FNP [address] [place] [address] Encounter for Long-Term (Current) Use of Anticoagulants (Primary Dx) Social History Tobacco Use Types Packs/Day Years Used Date Smoking Tobacco: Never Assessed Sex and Gender Information Value Date Recorded Sex Assigned at Not on file Legal Sex Male 3:16 AM NEEDLE LOOM TENDER Gender Identity Not on file Sexual Orientation Not on file documented as of this encounter Plan of Treatment Not on file documented as of this encounter Visit Diagnoses Diagnosis joint terminal attack controller (current) use of anticoagulants- Primary Long-term (current) use of anticoagulants documented in this encounter Additional Health Concerns Infection Onset Date Last Indicated Resolved Time R/O COVID-19 2020 2020 06/08/2020 12:3 0 AM CDT COVID-19 2020 2020 07/06/2020 8:09 PM CDT documented as of this encounter Care Teams Nutritionists Relationship Specialty Start Date End Date Dulce Maria Alonzo FNP [address] [place] [address] PCP - General Nurse Practitioner Family 08/01/20 documented as of this encounter
--- OUTSIDE RECORDS SUMMARY | 2025-04-30 13:34 | XMS_ITS | Encounter Summary ---
Author Organization [facility] Address [address] [place] [address] Care Team Providers Care Necktie Operator Pockets And Pieces Name Role Phone Dulce Maria Alonzo CHAIRMAN PRESIDENT AND CHIEF EXECUTIVE OFFICER Primary Care Provider [phone] Reason for Referral * Outpatient Services (Routine) - Closed Specialty Diagnoses / Procedures Referred By Contact Referred To Contact Interventional Radiology Diagnoses PVD (peripheral vascular disease) Procedures CL ARTERIAL FEMORAL RUNOFF Malcom Hernandez MD Phone: tel: fax: [facility] Interventional Radiology [address] [place] [address] Phone: tel: fax: Referral ID Status Reason Start Date Expiration Date Visits Re quested Visits Authorized [id number] Closed 06/28/2017 07/29/2018 1 1 Encounter Details Date Type Department Care Team (Late st Contact Info) Description 06/28/2017 Ancillary Orders [facility] Interventional Radiology [place] [address] [facility] [place] [address] Malcom Hernandez MD [address] [place] [phone] PVD (peripheral vascular disease) Social History Tobacco Use Types Packs/Day Years Used Date Smoking Tobacco: Former Cigarettes 2 60 0 05/14/1946 - 05/14/2008 Smokeless Tobacco: Never Alcohol Use Standard Drinks/Week Comments No 0 (1 standard drink = 0.6 oz pur e alcohol) Sex and Gender Information Value Date Recorded Sex Assigned at Not on file Legal Sex Male 3:16 AM FERMENTER Gender Identity Not on file Sexual Orientation Not on file documented as of this encounter Plan of Treatment Not on file documented as of this encounter Results * CL ARTERIAL FEMORAL RUNOFF (06/28/2017 3:28 PM CDT) Narrative Nas Fan Carrie - 05/12/2021 1:22 PM CDT Order information only. Exam was auto-finalized as part of the [employer] Single Instance conversion project. Procedure Note Nas Fan Carrie - 05/12/2021 Order information only. Exam was auto-finalized as part of the [employer] Single Instance conversion project. Malcom Hernandez MD FLUOROSCOPY ORDERABLES Final Result documented in this encounter Visit Diagnoses Diagnosis PVD (peripheral vascular disease) Peripheral vascular disease, unspecified documented in this encounter Additional Health Concerns Infection Onset Date Last Indicated Resolved Time R/O COVID-19 2020 2020 06/08/2020 12:3 0 AM CDT COVID-19 2020 2020 07/06/2020 8:09 PM CDT Assessment Noted Time PHQ-9 Depression Total Score: 1 04/21/20 17 8:00 AM CDT documented as of this encounter Care Teams Necktie Operator Pockets And Pieces Relationship Specialty Start Date End Date Dulce Maria Alonzo FNP [address] [place] [address] PCP - General Nurse Practitioner Family 08/01/20 documented as of this encounter
--- OUTSIDE RECORDS SUMMARY | 2025-04-30 13:34 | XMS_ITS | Clinical Summary ---
Author Organization [facility] Address [address] [facility] [place] [address] Care Team Providers Care Meeting Manager Name Role Phone Unavailable Primary Care Provider Unavailabl e Allergies No known active allergies Medications simvastatin (ZOCOR) 40 mg tablet TAKE 1 TABLET BY MOUTH EVERY DAY WITH SUPPER.. 90 Tablet 4 10/04/19 19 Active blood sugar diagnostic (OneTouch Ultra Blue Test Strip) StripIndications :Type 2 diabetes mellitus with diabetic polyneuropathy, with long-term current use of insulin ([facility]) USE ONE STRIP TO CHECK GLUCOSE ONCE DAILY 100 Strip 2 11/25/19 Active tamsulosin (FLOMAX) 0.4 mg capsule Take 1 Capsule (0.4 mg) by mouth daily. 90 Capsule 4 10/04/19 19 Active ramipriL (ALTACE) 2.5 mg capsule TAKE 1 CAPSULE BY MOUTH DAILY. 90 Capsule 4 10/19/19 19 Active glipiZIDE (GLUCOTROL) 5 mg tabletIndication s:Type 2 diabetes mellitus with diabetic neuropathy, without long-term current use of insulin ([facility]) Take 0.5 Tablets (2.5 mg) by mouth daily. 45 Tablet 4 10/28/19 19 Active albuterol HFA 90 mcg inhaler Take 2 Puffs by inhalation. 06/20/20 20 Active alendronate (FOSAMAX) 70 mg tablet Take 1 Tablet (70 mg) by mouth every 7 days TAKE ON EMPTY STOMACH BEFORE OTHER MEDS, WITH 8OZ OF WATER, STAY UPRIGHT 30 MIN. 12 Tablet 4 01/10/20 19 Active lancets 30 gauge Use to check blood sugar one time daily. DX: 250.00. 100 Each 3 01/21/20 19 Active gabapentin (NEURONTIN) 300 mg capsuleIndicatio ns:PVD (peripheral vascular disease) Take 1 Capsule (300 mg) by mouth 3 times daily. 270 Capsule 4 01/26/20 19 Active omeprazole (PriLOSEC) 20 mg Capsule, Delayed Release(E.C.) Take 20 mg by mouth 2 times daily. 11/01/19 Active sertraline (ZOLOFT) 25 mg tablet Take 1 Tablet by mouth daily at bedtime. 03/13/20 Active raNITIdine (ZANTAC) 150 mg tablet Take 1 tablet by mouth two times daily. 01/26/20 Active levothyroxine 50 mcg tablet 06/20/20 Active rivaroxaban (Xarelto) 2.5 mg Tablet Take 1 Tablet (2.5 mg) by mouth 2 times daily. 60 Tablet 2 08/20/20 Active ipratropium-albu teroL (DUONEB) 0.5 mg-3 mg(2.5 mg base)/3 mL Solution for Nebulization Take 3 mL by inhalation every 6 hours as needed for Shortness of Breath or Wheezing. 360 mL 4 06/01/20 18 Active aspirin (ECOTRIN EC) 81 mg Tablet, Delayed Release (E.C.) Take 1 Tablet (81 mg) by mouth daily. 90 Tablet 2 04/28/20 18 Active diabetic shoes with inserts DETAILED ORDER AND STATEMENT OF CERTIFYING PHYSICIAN FOR DIABETIC SHOES W/ INSERTSLength of Need: 99 months. I certify that the patient has diabetes mellitus and amputation of the foot. Patient is being treated under comprehensive plan for diabetes and the patient needs shoes and inserts because of the condition. Dispense 1 pair/ year shoe and 3 pair/year inserts A5500 AND A5513.[address] [facility] [place] [id number]. 1 Each 0 05/28/20 17 Active Nebulizer & Compressor For Neb Device Use as directed TID.Diagnosis J44.9Length of need: 99. 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 Limb ischemia 08/15/2020 Overview (01/10/2021): Added automatically from request for surgery [id number] Atherosclerosis of left lower extremity with res t pain 07/10/2020 Critical limb ischemia with history of revascularization of same extremity 07/10/2020 History of right below knee amputation 0 Combined form of senile cataract of left eye Hyperopia, left 10/26/2018 Regular astigmatism, bilateral 10/26/2018 Pseudophakia of right eye 10/26/2018 Myopia, right 10/26/2018 Viral hepatitis 10/08/2017 Hyperlipidemia 10/08/2017 High risk for readmission 08/26/2015 COPD (chronic obstructive pulmonary disease) Chronic obstructive pulmonar y disease with acute lower respiratory infection 08/22/2015 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/2012 Status post below knee amputation 03/09/2011 Type 2 diabetes mellitus wit h circulatory disorder, without long-term current use of insulin 10/15/2010 CAD (coronary artery disease) 10/13/2010 Overview (01/09/2021): Lab Results Component Value Date/Time CHOLTOT 167 09/15/2016 09:12 AM HDL 48 09/15/2016 09:12 AM LDLCALC 88 09/15/2016 09:12 AM TRIGLYCERIDE 157 (H) 09/15/2016 09:12 AM S/P insertion of IVC (inferior vena caval) filte r 10/07/2010 Dyslipidemia 10/06/2010 Overview (01/09/2021): Lab Results Component Value Date/Time CHOLTOT 167 09/15/2016 09:12 AM HDL 48 09/15/2016 09:12 AM LDLCALC 88 09/15/2016 09:12 AM TRIGLYCERIDE 157 (H) 09/15/2016 09:12 AM Personal history of colonic polyps 01/10/2010 Amputee 07/10/2008 Overview (01/08/2021): Right BKA Essential hypertension, benign PVD (peripheral vascular disease) Acute blood loss anemia Resolved Problems Problem Noted Date Diagnosed Date Resolved Date Pneumonia due to infectious organism 11/04/2019 11/04/2019 Elevated troponin 11/02/2019 11/04/2019 Sepsis 11/02/2019 11/04/2019 CAP (community acquired pneumonia) 01/09/2019 01/19/2024 Pneumonia of right lower lob e due to Haemophilus influenzae 02/03/2017 10/08/2017 Overview (01/08/2021): Results for orders placed or performed during [...] airspace disease compared with 12/29/2016. Pulmonary emphysema. 1261201/12127 Results for orders placed or performed during [...] acromioclavicular joint degenerative change noted. Old fracture Pneumonia of both lower lobe s due to infectious organism 08/22/2015 03/10/2018 Compensated respiratory alkalosis 08/22/2015 08/25/2015 Hyponatremia 08/22/2015 08/23/2015 Acute respiratory failure with hypoxemia 08/22/2015 02/06/2017 Hypochloremic alkalosis 08/22/201508/13 Rib pain on right side 08/22/201509/15 Neutrophilia 08/22/2015 08/25/2015 Chronic anticoagulation 10/07/201005/15 Chest discomfort 10/06/2010 03/07/2014 Abnormal stress test 10/06/2010 014 DVT (deep venous thrombosis) 03/07/2014 Overview (01/08/2021): Updating IMO/ICD9 Code and Description Ischemia 03/07/2014 Hemorrhagic shock 01/19/2024 Immunizations Immunization Administration Dates Next Due (PNEUMOVAX [...] Daughter 3 Healthy Daughter 4 Other Father [place]: age 51 Unknown Maternal Grandfather Unknown Maternal [...] Years Used Date Smoking Tobacco: Former Cigarettes Q uit: 05/14/2008 Smokeless Tobacco: Never Tobacco Cessation:Counseling Given: Not Answered Alcohol Use Standard Drinks/Week Comments No 0 (1 standard drink = 0.6 oz pur e alcohol) Sex and Gender Information Value Date Recorded Sex Assigned at Not on file Legal Sex Male 11:49 PM 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 MEDICINE 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 PRACTITIONER Gender Identity Not on file Sexual Orientation Not on file Last Filed Vital Signs Vital Sign Reading Time Taken Comments Blood Pressure 135/72 01/24/2024 7:28 AM CDT Pulse 65 01/24/2024 7:28 AM CDT Temperature 36.6 C (97.8 F) 01/24/2024 6:19 AM CDT Respiratory Rate 18 01/24/2024 7:28 AM CDT Oxygen Saturation 96% 01/24/2024 7:2 8 AM CDT Inhaled Oxygen Concentration - - Weight 64.2 kg (141 lb 9.6 oz) 01/19/2024 10:48 AM CDT Height 157.5 cm (5' 2 ) 01/19/2024 10:4 8 AM CDT Without prosethetics Body Mass Index 25.9 01/19/2024 10:48 AM CDT Plan of Treatment Health Maintenance Due Date Last Done Comments DTAP/TDAP/TD VACCINES (1 - Tdap) 1961 ZOSTER VACCINE (1 of 2) 1992 RSV VACCINE (60+ or ) (1 - 1-dose 75+ series) 2017 LDL CHOLESTEROL ANNUAL 07/19/2018 7, 09/15/2016, 10/30/2015 DIABETES MICROALBUMIN ANNUAL SCREEN 06/01/2019 06/01/2018, 07/19/2017, 09/15/2016 DIABETES ANNUAL FOOT EXAM 10/26/20192018, 04/28/2017, 07/23/2016 DIABETES ANNUAL RETINAL EXAM 01/22/202208/2021, 10/26/2018, 10/26/2018, Additional history exists DIABETES HBA1C Q 6 MONTHS 07/21/20242023, 06/08/2018, 06/08/2018, Additional history exists INFLUENZA VACCINE (#1) 2025 9, 06/01/2018, 07/19/2017, Additional history exists PNEUMOCOCCAL VACCINE 50+ YEARS Completed 1 10/27/2014, 10/20/2010, 04/28/2008 COLORECTAL SCREENING Discontinued 08/15/2018 Colorectal Cancer Screening Discontinued FIT-DNA Q 3 years Discontinued FIT/FOBT Q 1 year Discontinued Flex Sig/CT Colonography Q 5 years Discontinued Medical Devices Implanted Type Area Jailer Chief Device Identifier Shelf Expiration Date Model / Serial / Lot Clip Ligating Horizon Med Ti [id number] - Csc - [id number] Implanted:Qty: 1 on 07/10/2020 by Iftikhar Coleman MD Clip Left: Leg TELEFLEX- WECK CLOSURE SYS [id number] 08/29/2024 [id number] / / [id number] Sealant Mynx Special Certificate Dictator 6-7fr [id number] - [id number] Implanted:Qty: 1 on 08/17/2020 Closure Device Left: Groin ACCESS CLOSURE 06/12/2022 [id number] / / [id number] Log [id number] - Bard Patches, P[place], Barbara, Fabrics - 1 - [place] Ptfe Thck 1.6mmx2.5x2.5c m [id number] Implanted:Qty: 1 on 10/15/2010 Graft CR BARD- KENN VASC INC 08/12/2015 [id number] / / [id number] Hemostatic Surgiflo 8ml W/Thrombin 2994 - [id number] Implanted:Qty: 1 on 07/10/2020 by Iftikhar Coleman MD Hemostatic Left: Leg J&J- [employer] INC [id number] 06/12/2021 2994 / / [id number] Hemostatic Surgiflo 8ml W/Thrombin 2994 - [id number] Implanted:Qty: 1 on 07/10/2020 by Iftikhar Coleman MD Hemostatic Left: Leg J&J- [employer] [id number] 06/12/2021 2994 / / [id number] Hemostatic Surgiflo 8ml W/Thrombin 2994 - [id number] Implanted:Qty: 1 on 08/17/2020 by Iftikhar Coleman MD Hemostatic Left: Groin J&J- [employer] [id number] 09/12/2021 2994 / / [id number] Hemostatic Surgiflo 8ml W/Thrombin 2994 - [id number] Implanted:Qty: 1 on 08/17/2020 by Iftikhar Coleman MD Hemostatic Left: Groin J&J- [employer] INC [id number] 09/12/2021 2994 / / [id number] Ring Vein Marking 10mm [id number] Implanted:Qty: 2 on 10/15/2010 Other TELEFLEX- PILL WECK COATS L P [id number] / / Description:placed around by pass grafts to heart, load#[id number] Stent Abslt Pv [id number] - [id number] Implanted:Qty: 1 on 06/28/2017 by Malcom Hernandez MD Stent Right: Groin JETT- VASC DEVICE 05/13/2020 [id number] / / [id number] Stent Vasc Supera 6fr A-32-506-120-P 6 - [id number] Implanted:Qty: 1 on 06/28/2017 by Malcom Hernandez MD Stent Right: Groin JETT LAB 03/12/2018 S-65-100 -120-P6 / / [id number] Stent Abslt Pv [id number]/2 10/2018 Implanted:Qty: 2 on 01/02/2019 by Iftikhar Coleman MD Stent JETT- VASC DEVICE [id number] 07/13/2021 [id number] 60 / / [id number] Stent- 9 Implanted:Qty: 1 on 01/02/2019 by Iftikhar Coleman MD Stent [id number] 09/12/2020 / / [id number] Stent Vasc Supera 6fr J-47-518-120-P 6 - [id number] Implanted:Qty: 1 on 08/17/2020 by Iftikhar Coleman MD Stent Left: Groin JETT- VASC DEVICE [id number] 04/12/2021 S-50-060 -120-P6 / / [id number] Graft Vasc Propaten [id number] - [id number] Implanted:Qty: 1 on 07/10/2020 by Iftikhar Coleman MD Tissue Left: Leg [employer] [id number] 06/21/2023 [id number] / / [id number] P002 Procedures Procedure Name Priority Date/Time Associated Diagnosis Comments HEMOGLOBIN A1C Routine 01/19/2024 10:50 AM CDT MICROALBUMIN/CREATIN INE RATIO, RANDOM UR Routine 06/01/2018 9:40 AM CDT LIPID PANEL Routine 07/19/2017 9:13 AM EMERGENCY MEDICINE NURSE PRACTITIONER DIABETES EYE EXAM 03/03/2016 12:00 AM CDT from Last 3 Months or Most Recently Relevant to Health Maintenance Results * (ABNORMAL) HEMOGLOBIN A1C (01/19/2024 10:50 AM CDT) HEMOGLOBIN A1C 6.5(H) <=5.6 % 01/19/2024 2:54 PM CDT [facility] EST. AVG GLUCOSE, A1C 140 mg/dL 01/19/2024 2:54 PM CDT [facility] Blood BLOOD SPECIMEN / Unknown Collection / Unknown 01/19/2024 10:50 AM CDT 01/19/2024 11:08 AM CDT Narrative [facility] - 01/19/2024 2:54 PM CDT HGB A1C INTERPRETATION NORMAL: <5.7% PRE-DIABETES: 5.7 - 6.4% DIABETES: 6.5% OR GREATER us Vinod Fierro MD CHEMISTRY ORDERABLES Final Resu lt [facility] CLIA # [id number] [address] [place] [address] * (ABNORMAL) MICROALBUMIN/CREATININE RATIO, RANDOM UR (06/01/2018 9:40 AM CDT) MICROALBUMIN, URINE 2.6 No Reference Range mg/dL 06/01/2018 8:49 PM CDT [facility] CREATININE, URINE 41.3 40.0 - 278.0 mg/dL 06/01/2018 8:49 PM CDT [facility] Comment: Reference Range varies with fluid intake and diet. MICROALBUMIN/ CREAT RATIO, UR 63.0(H) <17.0 mg/g 06/01/2018 8:49 PM CDT [facility] Urine URINE SPECIMEN OBTAINED BY CLEAN CATCH PROCEDURE / Unknown Collection / Unknown 06/01/2018 9:40 AM CDT 06/01/2018 8:19 PM CDT Narrative [facility] - 06/01/2018 8:49 PM CDT Condition Microalbumin/Creat ratio Normal Males <17 Normal Females <25 Microalbuminuria Males 17-299 Microalbuminuria Females 25-299 Overt proteinuria >=300 us Dulce Maria Alonzo HAND PRESSER URINE ORDERABLES Final Resu lt [facility] Hidden Radio [facility] CLIA# [id number] [address] [place] [address] * LIPID PANEL (07/19/2017 9:13 AM EMERGENCY MEDICINE NURSE PRACTITIONER) CHOLESTEROL 156 <200 mg/dL 07/19/2017 9:00 PM EMERGENCY MEDICINE NURSE PRACTITIONER [facility] TRIGLYCERIDE 98 <150 mg/dL 07/19/2017 9:[address] [facility] HDL 50 40 - 59 mg/dL 07/19/2017 9:[address] [facility] LDL CALCULATED 86 <100 mg/dL 07/19/2017 9:[address] [facility] NON-HDL CHOLESTEROL 106 <130 mg/dL 07/19/2017 9:[address] [facility] Blood Venipuncture / Unknown 07/19/2017 9:13 AM EMERGENCY MEDICINE NURSE PRACTITIONER 07/19/2017 8:27 PM EMERGENCY MEDICINE NURSE PRACTITIONER Narrative [facility] - 07/19/2017 9:00 PM EMERGENCY MEDICINE NURSE PRACTITIONER TOTAL CHOLESTEROL mg/dL Desirable<200 Borderline [id number] High>=240 TRIGLYCERIDES mg/dL Normal<150 Borderline dukk435-184 Dfka188-680 Very high>=500 HDL CHOLESTEROL mg/dL Low<40 Kptuqe29-06 Desirable>=60 NON HDL CHOLESTEROL mg/dL Optimal<130 Near Zdtinpc450-513 Borderline Gpir486-254 Very High>=190 Calculated LDL mg/dL Optimal<100 Near Kgeokvq306-749 Borderline Ovpz576-106 Vvgu371-106 Very High>=190 ATPIII Guidelines Reference Ranges for Lipid Panels (NCEP/AMA) Dulce Maria Alonzo HAND PRESSER CHEMISTRY ORDERABLES Final Result [facility] IA# [id number] [address] [place] [address] * DIABETES EYE EXAM (03/03/2016 12:00 AM CDT) [facility] Scanning HEALTH MAINTENANCE Final Result from Last 3 Months or Most Recently Relevant to Health Maintenance Insurance [place] Member Subscriber Plan / Payer (Ef fective 2021-Present) Name:Mauro Espino Relation to Subscriber:Self Name:Mauro Espino Payer ID:Not on file Group ID:Not on file Type:Medicaid Address: [address] MEDICARE HMO Advance Directives For more information, please contact: [phone] * Full Code (Latest Code Status on File) Date Activated Date Inactivated Comments 01/21/2024 12:57 PM 01/24/2024 4:12 PM * Default Full Code - Needs Discussion Date Activated Date Inactivated Comments 01/19/2024 8:41 PM 01/21/2024 12:57 PM
--- OUTSIDE RECORDS SUMMARY | 2025-04-30 13:34 | XMS_ITS | Encounter Summary ---
Author Organization [facility] Address [address] [place] [address] Care Team Providers Care Custom Van Converter Name Role Phone Dulce Maria Alonzo Primary Care Provider Encounter Details Date Type Department Care Team (Latest Contact Info) Description 01/06/2007 Outpatient Historical [facility] [place] [address] [facility] [address] [place] [address] Dulce Maria Alonzo FNP [address] [place] [address] Encounter for Long-Term (Current) Use of Anticoagulants (Primary Dx) Social History Tobacco Use Types Packs/Day Years Used Date Smoking Tobacco: Never Assessed Sex and Gender Information Value Date Recorded Sex Assigned at Not on file Legal 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 Gender Identity Not on file Sexual Orientation Not on file documented as of this encounter Plan of Treatment Not on file documented as of this encounter Visit Diagnoses 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
--- OUTSIDE RECORDS SUMMARY | 2025-04-30 13:34 | XMS_ITS | Encounter Summary ---
Author Organization [facility] Address [address] [place] [address] Care Team Providers Care Bulk Clerk Name Role Phone Dulce Maria Alonzo Primary Care Provider Encounter Details Date Type Department Care Team (Latest Contact Info) Description 02/21/[address] 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 Gender Identity Not on file Sexual Orientation Not on file documented as of this encounter Plan of Treatment Not on file documented as of this encounter Visit Diagnoses Diagnosis Pain in limb- Primary Pain in soft tissues of limb documented in this encounter Additional Health Concerns Infection Onset Date Last Indicated Resolved Time R/O COVID-19 2020 2020 06/08/2020 12:3 0 AM CDT COVID-19 2020 2020 07/06/2020 8:09 PM CDT documented as of this encounter Care Teams Bulk Clerk Relationship Specialty Start Date End Date Dulce Maria Alonzo FNP [address] [place] [phone] PCP - General Nurse Practitioner Family 08/01/20 documented as of this encounter
--- OUTSIDE RECORDS SUMMARY | 2025-04-30 13:34 | XMS_ITS | Encounter Summary ---
Author Organization [facility] Address [address] [place] [address] Care Team Providers Care Cyber Intelligence Analyst Name Role Phone Dulce Maria Alonzo Primary Care Provider Encounter Details Date Type Department Care Team (Latest Contact Info) Description 03/15/2007 Outpatient Historical [facility] [place] [address] [place] [address] Derek Tirado II, MD [address] [place] [address] Unspecified Peripheral Vascular Disease (Primary Dx) Social History Tobacco Use Types Packs/Day Years Used Date Smoking Tobacco: Never Assessed Sex and Gender Information Value Date Recorded Sex Assigned at Not on file 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 Gender Identity Not on file Sexual Orientation Not on file documented as of this encounter Plan of Treatment Not on file documented as of this encounter Visit Diagnoses Diagnosis Peripheral vascular disease, unspecified- Primary documented in this encounter Additional Health Concerns Infection Onset Date Last Indicated Resolved Time R/O COVID-19 2020 2020 06/08/2020 12:3 0 AM CDT COVID-19 2020 2020 07/06/2020 8:09 PM CDT documented as of this encounter Care Teams Cyber Intelligence Analyst Relationship Specialty Start Date End Date Dulce Maria Alonzo FNP [address] [place] [address] PCP - General Nurse Practitioner Family 08/01/20 documented as of this encounter
--- OUTSIDE RECORDS SUMMARY | 2025-04-30 13:34 | XMS_ITS | Encounter Summary ---
Author Organization [facility] Address [address] [place] [address] Care Team Providers Care Dry Cleaning Machine Operator Helper Name Role Phone Dulce Maria Alonzo Primary Care Provider Encounter Details Date Type Department Care Team (Late st Contact Info) Description 09/23/2007 Outpatient Historical [facility] [place] [address] [place] [address] Social History Tobacco Use Types Packs/Day Years Used Date Smoking Tobacco: Never Assessed Sex and Gender Information Value Date Recorded Sex Assigned at Not on file Legal Sex Male 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
--- OUTSIDE RECORDS SUMMARY | 2025-04-30 13:34 | XMS_ITS | Encounter Summary ---
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, Implant, and Graft (Primary Dx) Social History Tobacco Use Types Packs/Day Years Used Date Smoking Tobacco: Never Assessed Sex and Gender Information Value Date Recorded Sex Assigned at Not on file 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 Gender Identity Not on file Sexual Orientation Not on file documented as of this encounter Plan of Treatment Not on file documented as of this encounter Procedures Procedure Name Priority Date/Time Associated Diagnosis Comments PROTIME-INR Routine 02/26/2007 4:04 AM CDT PT AND APTT Routine 02/25/2007 4:15 AM CDT CBC WITH DIFFERENTIAL Routine 02/25/2007 4:15 AM CDT BASIC METABOLIC PANEL Routine 02/25/2007 4:15 AM CDT PTT Routine 02/24/2007 10:23 PM CDT URINALYSIS MICROSCOPY ONLY Routine 02/24/2007 6:09 PM CDT URINALYSIS W/REFLEX MICROSCOPIC Routine 02/24/2007 6:09 PM CDT PTT Routine 02/24/2007 3:15 PM CDT PTT Routine 02/24/2007 8:13 AM CDT CBC WITH DIFFERENTIAL Routine 02/24/2007 5:46 AM CDT POC ACTIVATED CLOTTING TIME Routine 02/23/2007 10:07 PM CDT POC ACTIVATED CLOTTING TIME Routine 02/23/2007 8:22 PM CDT PTT Routine 02/23/2007 4:42 AM CDT PROTIME-INR Routine 02/23/2007 4:42 AM CDT FIBRINOGEN QUANTITATIVE Routine 02/23/2007 4:42 AM CDT CBC WITHOUT DIFFERENTIAL Routine 02/23/2007 4:42 AM CDT FIBRINOGEN QUANTITATIVE Routine 02/22/2007 8:37 PM CDT FIBRINOGEN QUANTITATIVE Routine 02/22/2007 12:36 PM CDT PTT Routine 02/22/2007 8:02 AM CDT PT AND APTT Routine 02/21/2007 10:25 PM CDT CBC WITH DIFFERENTIAL Routine 02/21/2007 10:25 PM CDT BASIC METABOLIC PANEL Routine 02/21/2007 10:25 PM CDT documented in this encounter Results * (ABNORMAL) PROTIME-INR (02/26/2007 4:04 AM CDT) PROTIME 15.8(H) 13.0 - 15.7 Secs INTERFACE SYSTEM Comment: As of 06 note change in normal range. INR 1.1 INTERFACE SYSTEM Comment: Expected Values for INR: DVT/PE Goal INR 2.5; range 2.0 - 3.0 Valve Replacement Tissue Goal INR 2.5; range 2.0 - 3.0 Mechanical Goal INR 3.0; range 2.5 - 3.5 POST-AK Goal INR 2.5; range 2.0 - 3.0 or Goal 3.0; range 2.5 - 3.5 Atrial Fibrillation Goal INR 2.5; range 2.0 - 3.0 Ischemic Stroke Goal INR 2.5; range 2.0 - 3.0 For additional information see Guidelines for Anticoagulation available from the pharmacy Emilia Boateng 02/26/2007 4:04 AM CDT Derek Tirado II, MD HEMATOLOGY ORDERABLES Maurice nacho INTERFACE SYSTEM Refer to clinic/hospital department * (ABNORMAL) PT AND APTT (02/25/2007 4:15 AM CDT) PROTIME 16.4(H) 13.0 - 15.7 Secs INTERFACE SYSTEM Comment: As of 06 note change in normal range. INR 1.2 INTERFACE SYSTEM Comment: Expected Values for INR: DVT/PE Goal INR 2.5; range 2.0 - 3.0 Valve Replacement Tissue Goal INR 2.5; range 2.0 - 3.0 Mechanical Goal INR 3.0; range 2.5 - 3.5 POST-AK Goal INR 2.5; range 2.0 - 3.0 or Goal 3.0; range 2.5 - 3.5 Atrial Fibrillation Goal INR 2.5; range 2.0 - 3.0 Ischemic Stroke Goal INR 2.5; range 2.0 - 3.0 For additional information see Guidelines for Anticoagulation available from the pharmacy Emilia Boateng PTT 46.9(H) 21.6 - 35.6 Secs INTERFACE SYSTEM Comment: Therapeutic Range: Hi-level PE/DVT heparin protocol 80.1 -95.0 sec Lo-level PE/DVT heparin protocol 67.1 - 80.0 sec Cardiac Heparin Protocol 67.1 - 85.0 sec Neuro Heparin Protocol 67.1 - 80.0 sec As of 08/19/2006 note change in APTT Normal Range. 02/25/2007 4:15 AM CDT Derek Tirado II, MD HEMATOLOGY ORDERABLES Maurice nacho Performing Organization Address [facility] Phone Number INTERFACE SYSTEM Refer to clinic/hospital department * (ABNORMAL) BASIC METABOLIC PANEL (02/25/2007 4:15 AM CDT) GLUCOSE 125(H) 70 - 110 mg/dL INTERFACE SYSTEM BUN 13 9 - 20 mg/dL INTERFACE SYSTEM CREATININE 1.0 0.7 - 1.5 mg/dL INTERFACE SYSTEM SODIUM 132(L) 136 - 145 mEq/L INTERFACE SYSTEM POTASSIUM 3.6 3.5 - 5.0 mEq/L INTERFACE SYSTEM CHLORIDE 103 95 - 110 mEq/L INTERFACE SYSTEM CO2 23 22 - 32 mmol/l INTERFACE SYSTEM CALCIUM 9.1 8.4 - 10.5 mg/dL INTERFACE SYSTEM ANION GAP 10 9 - 20 mEq/L INTERFACE SYSTEM OSMOLALITY, CALCULATED 274(L) 275 - 295 mOsm/Kg INTERFACE SYSTEM 02/25/2007 4:15 AM CDT Derek Tirado II, MD CHEMISTRY ORDERABLES Edit ed Performing Organization Address [facility] Phone Number INTERFACE SYSTEM Refer to clinic/hospital department * (ABNORMAL) CBC WITH DIFFERENTIAL (02/25/2007 4:15 AM CDT) WBC 13.4(H) 4.8 - 10.8 K/ul INTERFACE SYSTEM RBC 4.22(L) 4.60 - 6.20 Mil/ul INTERFACE SYSTEM HEMOGLOBIN 12.9(L) 14.0 - 18.0 g/dL INTERFACE SYSTEM HEMATOCRIT 37.3(L) 41.0 - 53.0 % INTERFACE SYSTEM MCV 88.4 84.0 - 103.0 Fl INTERFACE SYSTEM MCH 30.6 27.0 - 34.0 pg INTERFACE SYSTEM MCHC 34.6 30.0 - 35.0 g/dL INTERFACE SYSTEM RDW 13.6 11.0 - 14.5 % INTERFACE SYSTEM PLATELETS 136(L) 140 - 440 K/ul INTERFACE SYSTEM MPV 10.6 8.9 - 12.8 Fl INTERFACE SYSTEM NEUTROPHILS 82.2(H) 42.2 - 75.2 % INTERFACE SYSTEM LYMPHOCYTES 10.0(L) 24.0 - 44.0 % INTERFACE SYSTEM MONOCYTES 7.1 2.0 - 10.0 % INTERFACE SYSTEM EOSINOPHILS 0.5 0.0 - 7.0 % INTERFACE SYSTEM BASOPHILS 0.2 0.0 - 1.0 % INTERFACE SYSTEM NEUTROPHIL ABSOLUTE 11.0(H) 2.0 - 8.0 K/ul INTERFACE SYSTEM LYMPHOCYTE ABSOLUTE 1.3 1.2 - 4.0 K/ul INTERFACE SYSTEM MONOCYTE ABSOLUTE 1.0(H) 0.1 - 0.6 K/ul INTERFACE SYSTEM EOSINOPHIL ABSOLUTE 0.1 0.0 - 0.7 K/ul INTERFACE SYSTEM BASOPHILS ABSOLUTE 0.0 0.0 - 0.2 K/ul INTERFACE SYSTEM 02/25/2007 4:15 AM CDT Derek Tirado II, MD HEMATOLOGY ORDERABLES Maurice nacho Performing Organization Address [facility] de Phone Number INTERFACE SYSTEM Refer to clinic/hospital department * (ABNORMAL) PTT (02/24/2007 10:23 PM CDT) PTT 68.9(H) 21.6 - 35.6 Secs INTERFACE SYSTEM Comment: Therapeutic Range: Hi-level PE/DVT heparin protocol 80.1 -95.0 sec Lo-level PE/DVT heparin protocol 67.1 - 80.0 sec Cardiac Heparin Protocol 67.1 - 85.0 sec Neuro Heparin Protocol 67.1 - 80.0 sec As of 08/19/2006 note change in APTT Normal Range. 02/24/2007 10:2 3 PM CDT Derek Tirado II, MD HEMATOLOGY ORDERABLES Maurice nacho Performing Organization Address [facility] de Phone Number INTERFACE SYSTEM Refer to clinic/hospital department * (ABNORMAL) URINALYSIS MICROSCOPY ONLY (02/24/2007 6:09 PM CDT) WBC URINE 16-25(A) 0 - 2 INTERFACE SYSTEM RBC UA 16-25(A) 0 - 2 INTERFACE SYSTEM HYALINE CAST 0-2 0 - 2 INTERFA CE SYSTEM BACTERIA UA Many(A) None Seen INTERFAC E SYSTEM 02/24/2007 6:09 PM CDT Result [facility] Derek Tirado II, MD URINE ORDERABLES Edited Performing Organization Address [facility] Phone Number INTERFACE SYSTEM Refer to clinic/hospital department * (ABNORMAL) URINALYSIS (02/24/2007 6:09 PM CDT) COLOR UA Yellow Straw INTERFACE SYSTEM CLARITY UA Cloudy(A) Clear INTERFACE SYSTEM LEUKOCYTE ESTERASE UA Large(A) NEGATIVE INTERFACE SYSTEM NITRITE UA NEGATIVE NEGATIVE INTERFACE SYSTEM PH UA 7.0 5.0 - 9.0 INTERFACE SYSTEM PROTEIN UA 100 mg/dl(A) NEGATIVE INTERF MANDY SYSTEM GLUCOSE UA NEGATIVE NEGATIVE INTERFACE SYSTEM KETONES UA NEGATIVE NEGATIVE INTERFACE SYSTEM UROBILINOGEN UA 2.0(A) 0.2 INTE RFACE SYSTEM BILIRUBIN UA NEGATIVE NEGATIVE INTERFA CE SYSTEM BLOOD UA Large(A) NEGATIVE INTERFACE SYSTEM SPECIFIC GRAVITY UA 1.020 1.005 - 1.030 INTERFACE SYSTEM MICRO EXAM Yes(A) No INTERFACE SYSTEM 02/24/2007 6:09 PM CDT Result [facility] us Derek Tirado II, MD URINE ORDERABLES Edited Performing Organization Address [facility] Phone Number INTERFACE SYSTEM Refer to clinic/hospital department * (ABNORMAL) PTT (02/24/2007 3:15 PM CDT) PTT 123.8(H) 21.6 - 35.6 Secs INTERFACE SYSTEM Comment: Therapeutic Range: Hi-level PE/DVT heparin protocol 80.1 -95.0 sec Lo-level PE/DVT heparin protocol 67.1 - 80.0 sec Cardiac Heparin Protocol 67.1 - 85.0 sec Neuro Heparin Protocol 67.1 - 80.0 sec As of 08/19/2006 note change in APTT Normal Range. 02/24/2007 3:15 PM CDT Result [facility] us Derek Tirado II, MD HEMATOLOGY ORDERABLES Maurice nacho Performing Organization Address [facility] de Phone Number INTERFACE SYSTEM Refer to clinic/hospital department * (ABNORMAL) PTT (02/24/2007 8:13 AM CDT) PTT 78.9(H) 21.6 - 35.6 Secs INTERFACE SYSTEM Comment: Therapeutic Range: Hi-level PE/DVT heparin protocol 80.1 -95.0 sec Lo-level PE/DVT heparin protocol 67.1 - 80.0 sec Cardiac Heparin Protocol 67.1 - 85.0 sec Neuro Heparin Protocol 67.1 - 80.0 sec As of 08/19/2006 note change in APTT Normal Range. 02/24/2007 8:13 AM CDT Derek Tirado II, MD [facility] Performing Organization Address [facility] Phone Number INTERFACE SYSTEM Refer to clinic/hospital department * (ABNORMAL) CBC WITH DIFFERENTIAL (02/24/2007 5:46 AM CDT) WBC 11.6(H) 4.8 - 10.8 K/ul INTERFACE SYSTEM RBC 4.54(L) 4.60 - 6.20 Mil/ul INTERFACE SYSTEM HEMOGLOBIN 14.1 14.0 - 18.0 g/dL INTERFACE SYSTEM HEMATOCRIT 40.0(L) 41.0 - 53.0 % INTERFACE SYSTEM MCV 88.1 84.0 - 103.0 Fl INTERFACE SYSTEM MCH 31.1 27.0 - 34.0 pg INTERFACE SYSTEM MCHC 35.3(H) 30.0 - 35.0 g/dL INTERFACE SYSTEM RDW 13.8 11.0 - 14.5 % INTERFACE SYSTEM PLATELETS 118(L) 140 - 440 K/ul INTERFACE SYSTEM MPV 10.3 8.9 - 12.8 Fl INTERFACE SYSTEM NEUTROPHILS 75.9(H) 42.2 - 75.2 % INTERFACE SYSTEM LYMPHOCYTES 15.5(L) 24.0 - 44.0 % INTERFACE SYSTEM MONOCYTES 7.3 2.0 - 10.0 % INTERFACE SYSTEM EOSINOPHILS 1.0 0.0 - 7.0 % INTERFACE SYSTEM BASOPHILS 0.3 0.0 - 1.0 % INTERFACE SYSTEM NEUTROPHIL ABSOLUTE 8.8(H) 2.0 - 8.0 K/ul INTERFACE SYSTEM LYMPHOCYTE ABSOLUTE 1.8 1.2 - 4.0 K/ul INTERFACE SYSTEM MONOCYTE ABSOLUTE 0.8(H) 0.1 - 0.6 K/ul INTERFACE SYSTEM EOSINOPHIL ABSOLUTE 0.1 0.0 - 0.7 K/ul INTERFACE SYSTEM BASOPHILS ABSOLUTE 0.0 0.0 - 0.2 K/ul INTERFACE SYSTEM 02/24/2007 5:46 AM CDT Result Chantell Tirado II, MD HEMATOLOGY ORDERABLES Maurice nacho Performing Organization Address [facility] Phone Number INTERFACE SYSTEM Refer to clinic/hospital department * POC ACTIVATED CLOTTING TIME (02/23/2007 10:07 PM CDT) ACT POC 137 79 - 149 sec INTERFACE SYSTEM 02/23/2007 10:0 7 PM CDT Result Chantell Tirado II, MD POINT OF CARE TESTING Maurice nacho Performing Organization Address [facility] Phone Number INTERFACE SYSTEM Refer to clinic/hospital department * (ABNORMAL) POC ACTIVATED CLOTTING TIME (02/23/2007 8:22 PM CDT) ACT POC 169(H) 79 - 149 sec INTERFACE SYSTEM 02/23/2007 8:22 PM CDT Result Chantell Tirado II, MD POINT OF CARE TESTING Maurice nacho Performing Organization Address [facility] Phone Number INTERFACE SYSTEM Refer to clinic/hospital department * FIBRINOGEN QUANTITATIVE (02/23/2007 4:42 AM CDT) FIBRINOGEN 242 200 - 400 mg/dL INTERFACE SYSTEM 02/23/2007 4:42 AM CDT Result Chantell Tirado II, MD HEMATOLOGY ORDERABLES Maurice nacho Performing Organization Address [facility] Phone Number INTERFACE SYSTEM Refer to clinic/hospital department * (ABNORMAL) PROTIME-INR (02/23/2007 4:42 AM CDT) Pathologist [facility] PROTIME 22.4(H) 13.0 - 15.7 Secs INTERFACE SYSTEM Comment: As of 06 note change in normal range. INR 1.8 INTERFACE SYSTEM Comment: Expected Values for INR: DVT/PE Goal INR 2.5; range 2.0 - 3.0 Valve Replacement Tissue Goal INR 2.5; range 2.0 - 3.0 Mechanical Goal INR 3.0; range 2.5 - 3.5 POST-AK Goal INR 2.5; range 2.0 - 3.0 or Goal 3.0; range 2.5 - 3.5 Atrial Fibrillation Goal INR 2.5; range 2.0 - 3.0 Ischemic Stroke Goal INR 2.5; range 2.0 - 3.0 For additional information see Guidelines for Anticoagulation available from the pharmacy Emilia Boateng D. 02/23/2007 4:42 AM CDT Derek Tirado II, MD HEMATOLOGY ORDERABLES Maurice nacho Performing Organization Address [facility] de Phone Number INTERFACE SYSTEM Refer to clinic/hospital department * (ABNORMAL) PTT (02/23/2007 4:42 AM CDT) Pathologist [facility] PTT 43.8(H) 21.6 - 35.6 Secs INTERFACE SYSTEM Comment: Therapeutic Range: Hi-level PE/DVT heparin protocol 80.1 -95.0 sec Lo-level PE/DVT heparin protocol 67.1 - 80.0 sec Cardiac Heparin Protocol 67.1 - 85.0 sec Neuro Heparin Protocol 67.1 - 80.0 sec As of 08/19/2006 note change in APTT Normal Range. 02/23/2007 4:42 AM CDT Derek Tirado II, MD HEMATOLOGY ORDERABLES Maurice nacho Performing Organization Address [facility] de Phone Number INTERFACE SYSTEM Refer to clinic/hospital department * (ABNORMAL) CBC WITHOUT DIFFERENTIAL (02/23/2007 4:42 AM CDT) WBC 9.5 4.8 - 10.8 K/ul INTERFACE SYSTEM RBC 4.61 4.60 - 6.20 Mil/ul INTERFACE SYSTEM HEMOGLOBIN 14.3 14.0 - 18.0 g/dL INTERFACE SYSTEM HEMATOCRIT 41.0 41.0 - 53.0 % INTERFACE SYSTEM MCV 88.9 84.0 - 103.0 Fl INTERFACE SYSTEM MCH 31.0 27.0 - 34.0 pg INTERFACE SYSTEM MCHC 34.9 30.0 - 35.0 g/dL INTERFACE SYSTEM RDW 13.8 11.0 - 14.5 % INTERFACE SYSTEM PLATELETS 119(L) 140 - 440 K/ul INTERFACE SYSTEM MPV 9.9 8.9 - 12.8 Fl INTERFACE SYSTEM NEUTROPHILS 74.7 42.2 - 75.2 % INTERFACE SYSTEM LYMPHOCYTES 15.1(L) 24.0 - 44.0 % INTERFACE SYSTEM MONOCYTES 8.4 2.0 - 10.0 % INTERFACE SYSTEM EOSINOPHILS 1.3 0.0 - 7.0 % INTERFACE SYSTEM BASOPHILS 0.5 0.0 - 1.0 % INTERFACE SYSTEM NEUTROPHIL ABSOLUTE 7.1 2.0 - 8.0 K/ul INTERFACE SYSTEM LYMPHOCYTE ABSOLUTE 1.4 1.2 - 4.0 K/ul INTERFACE SYSTEM MONOCYTE ABSOLUTE 0.8(H) 0.1 - 0.6 K/ul INTERFACE SYSTEM EOSINOPHIL ABSOLUTE 0.1 0.0 - 0.7 K/ul INTERFACE SYSTEM BASOPHILS ABSOLUTE 0.1 0.0 - 0.2 K/ul INTERFACE SYSTEM 02/23/2007 4:42 AM CDT Derek Tirado II, MD HEMATOLOGY ORDERABLES Maurice nacho Performing Organization Address [facility] Co de Phone Number INTERFACE SYSTEM Refer to clinic/hospital department * FIBRINOGEN QUANTITATIVE (02/22/2007 8:37 PM CDT) FIBRINOGEN 230 200 - 400 mg/dL INTERFACE SYSTEM 02/22/2007 8:37 PM CDT Derek Tirado II, MD HEMATOLOGY ORDERABLES Maurice nacho Performing Organization Address City/[facility]/ZIP Co de Phone Number INTERFACE SYSTEM Refer to clinic/hospital department * FIBRINOGEN QUANTITATIVE (02/22/2007 12:36 PM CDT) FIBRINOGEN 326 200 - 400 mg/dL INTERFACE SYSTEM 02/22/2007 12:3 6 PM CDT Derek Tirado II, MD HEMATOLOGY ORDERABLES Maurice nacho Performing Organization Address [facility] Phone Number INTERFACE SYSTEM Refer to clinic/hospital department * (ABNORMAL) PTT (02/22/2007 8:02 AM CDT) PTT >249.0(AA) 21.6 - 35.6 Secs INTERFACE SYSTEM Comment: Therapeutic Range: Hi-level PE/DVT heparin protocol 80.1 -95.0 sec Lo-level PE/DVT heparin protocol 67.1 - 80.0 sec Cardiac Heparin Protocol 67.1 - 85.0 sec Neuro Heparin Protocol 67.1 - 80.0 sec As of 08/19/2006 note change in APTT Normal Range. Potentially critical/toxic APTT called by DWAIEN Flores, with verbal read back, at 0835. 02/22/2007 8:02 AM CDT Derek Tirado II, MD HEMATOLOGY ORDERABLES Maurice nacho Performing Organization Address [facility] Phone Number INTERFACE SYSTEM Refer to clinic/hospital department * (ABNORMAL) PT AND APTT (02/21/2007 10:25 PM CDT) PROTIME 22.0(H) 13.0 - 15.7 Secs INTERFACE SYSTEM Comment: As of 06 note change in normal range. INR 1.8 INTERFACE SYSTEM Comment: Expected Values for INR: DVT/PE Goal INR 2.5; range 2.0 - 3.0 Valve Replacement Tissue Goal INR 2.5; range 2.0 - 3.0 Mechanical Goal INR 3.0; range 2.5 - 3.5 POST-AK Goal INR 2.5; range 2.0 - 3.0 or Goal 3.0; range 2.5 - 3.5 Atrial Fibrillation Goal INR 2.5; range 2.0 - 3.0 Ischemic Stroke Goal INR 2.5; range 2.0 - 3.0 For additional information see Guidelines for Anticoagulation available from the pharmacy Emilia Boateng PTT 33.5 21.6 - 35.6 Secs INTERFACE SYSTEM Comment: Therapeutic Range: Hi-level PE/DVT heparin protocol 80.1 -95.0 sec Lo-level PE/DVT heparin protocol 67.1 - 80.0 sec Cardiac Heparin Protocol 67.1 - 85.0 sec Neuro Heparin Protocol 67.1 - 80.0 sec As of 08/19/2006 note change in APTT Normal Range. 02/21/2007 10:2 5 PM CDT Malcom Coulter MD HEMATOLOGY ORDERABLES Maurice nacho Performing Organization Address [facility] Phone Number INTERFACE SYSTEM Refer to clinic/hospital department * (ABNORMAL) BASIC METABOLIC PANEL (02/21/2007 10:25 PM CDT) GLUCOSE 75 70 - 110 mg/dL INTERFACE SYSTEM BUN 16 9 - 20 mg/dL INTERFACE SYSTEM CREATININE 1.2 0.7 - 1.5 mg/dL INTERFACE SYSTEM SODIUM 136 136 - 145 mEq/L INTERFACE SYSTEM POTASSIUM 3.8 3.5 - 5.0 mEq/L INTERFACE SYSTEM CHLORIDE 107 95 - 110 mEq/L INTERFACE SYSTEM CO2 25 22 - 32 mmol/l INTERFACE SYSTEM CALCIUM 9.4 8.4 - 10.5 mg/dL INTERFACE SYSTEM ANION GAP 8(L) 9 - 20 mEq/L INTERFACE SYSTEM OSMOLALITY, CALCULATED 280 275 - 295 mOsm/Kg INTERFACE SYSTEM 02/21/2007 10:2 5 PM CDT Malcom Coulter MD CHEMISTRY ORDERABLES Edit ed Performing Organization Address [facility] de Phone Number INTERFACE SYSTEM Refer to clinic/hospital department * (ABNORMAL) CBC WITH DIFFERENTIAL (02/21/2007 10:25 PM CDT) WBC 8.9 4.8 - 10.8 K/ul INTERFACE SYSTEM RBC 4.77 4.60 - 6.20 Mil/ul INTERFACE SYSTEM HEMOGLOBIN 15.5 14.0 - 18.0 g/dL INTERFACE SYSTEM HEMATOCRIT 42.3 41.0 - 53.0 % INTERFACE SYSTEM MCV 88.7 84.0 - 103.0 Fl INTERFACE SYSTEM MCH 32.5 27.0 - 34.0 pg INTERFACE SYSTEM MCHC 36.6(H) 30.0 - 35.0 g/dL INTERFACE SYSTEM RDW 13.6 11.0 - 14.5 % INTERFACE SYSTEM PLATELETS 184 140 - 440 K/ul INTERFACE SYSTEM MPV 9.1 8.9 - 12.8 Fl INTERFACE SYSTEM NEUTROPHILS 58.5 42.2 - 75.2 % INTERFACE SYSTEM LYMPHOCYTES 30.0 24.0 - 44.0 % INTERFACE SYSTEM MONOCYTES 8.1 2.0 - 10.0 % INTERFA CE SYSTEM EOSINOPHILS 2.7 0.0 - 7.0 % INTERF MANDY SYSTEM BASOPHILS 0.7 0.0 - 1.0 % INTERFAC E SYSTEM NEUTROPHIL ABSOLUTE 5.2 2.0 - 8.0 K/ul INTERFACE SYSTEM LYMPHOCYTE ABSOLUTE 2.7 1.2 - 4.0 K/ul INTERFACE SYSTEM MONOCYTE ABSOLUTE 0.7(H) 0.1 - 0.6 K/ul INTERFACE SYSTEM EOSINOPHIL ABSOLUTE 0.2 0.0 - 0.7 K/ul INTERFACE SYSTEM BASOPHILS ABSOLUTE 0.1 0.0 - 0.2 K/ul INTERFACE SYSTEM PERIPHERAL BLOOD SMEAR REVIEW Automated Diff Automated Diff INTERFACE SYSTEM 02/21/2007 10:2 5 PM CDT us Malcom Coulter MD HEMATOLOGY ORDERABLES Maurice nacho INTERFACE SYSTEM Refer to clinic/hospital department documented in this encounter Visit Diagnoses Diagnosis Other complications due to other vascular device, implant, and graft- Primary documented in this encounter Additional Health Concerns Infection Onset Date Last Indicated Resolved Time R/O COVID-19 2020 2020 06/08/2020 12:3 0 AM CDT COVID-19 2020 2020 07/06/2020 8:09 PM CDT documented as of this encounter Care Teams Email Marketing Manager Relationship Specialty Start Date End Date Dulce Maria Alonzo FNP [address] [place] [address] PCP - General Nurse Practitioner Family 08/01/20 documented as of this encounter
--- OUTSIDE RECORDS SUMMARY | 2025-04-30 13:34 | XMS_ITS | Encounter Summary ---
Author Organization [facility] Address [address] [place] [address] Care Team Providers Care Reel Man Name Role Phone Dulce Maria Alonzo Primary Care Provider Encounter Details Date Type Department Care Team (Latest Contact Info) Description 02/10/2007 Outpatient Historical [facility] Medicine [place] [address] [facility] [address] [place] [address] Dulce Maria Alonzo FNP [address] [place] [address] Encounter for Long-Term (Current) Use of Anticoagulants (Primary Dx); Other and Unspecified Hyperlipidemia Social History Tobacco Use Types Packs/Day Years Used Date Smoking Tobacco: Never Assessed Sex and Gender Information Value Date Recorded Sex Assigned at Not on file 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 Gender Identity Not on file Sexual Orientation Not on file documented as of this encounter Plan of Treatment Not on file documented as of this encounter Visit Diagnoses Diagnosis intermediate (current) use of anticoagulants- Primary Long-term (current) use of anticoagulants Other and unspecified hyperlipidemia documented in this encounter Additional Health Concerns Infection Onset Date Last Indicated Resolved Time R/O COVID-19 2020 2020 06/08/2020 12:3 0 AM CDT COVID-19 2020 2020 07/06/2020 8:09 PM CDT documented as of this encounter Care Teams Reel Man Relationship Specialty Start Date End Date Dulce Maria Alonzo FNP [address] [place] [address] PCP - General Nurse Practitioner Family 08/01/20 documented as of this encounter
[2025-04-30 13:35] VITALS: PULSE 78; O2SAT 93
--- NOTE | 2025-04-30 13:39 | W.ED.FALL ---
HPI - Fall General: Chief Complaint: Fall Stated Complaint: HEADACHE Time Seen by Provider: 04/30/25 13:26 History of Present Illness: 84-year-old male presents emergency room patient has had previous bilateral lower extremity amputations left [id number] right below the knee. Patient states he was leaning forward to reach for something while he was sitting in his chair and he fell forward he hit his head denies loss consciousness he denies chest pain he does have a CT collar in place. Family reported to EMS he been a little bit altered lately. Patient denies loss consciousness nausea or vomiting no chest pain or abdominal pain. At the time I am seeing the patient he states he does not have any neck pain. Associated symptoms-after fall: Denies abdominal pain, chest pain or neck pain Related Data Home Medications ?Medication ?Instructions ?Recorded ?Confirmed aspirin 81 mg tablet,delayed 81 mg PO QAM 09/08/19 04/30/25 release tamsulosin 0.4 mg capsule 0.4 mg PO DAILY 03/24/23 04/30/25 alendronate 70 mg tablet 70 mg PO Q7D 04/30/25 04/30/25 clopidogrel 75 mg tablet 75 mg PO DAILY 04/30/25 04/30/25 levothyroxine 75 mcg tablet 75 mcg PO DAILY 04/30/25 04/30/25 omeprazole 20 mg capsule,delayed 20 mg PO BID 04/30/25 04/30/25 release simvastatin 40 mg tablet 40 mg PO .DAILY@199904/30/25 04/30/25 Previous Rx's ?Medication ?Instructions ?Recorded blood-glucose meter (Blood Glucose #1 ea 04/02/22 Monitoring kit) lancets (Fingerstix Lancets) #100 ea 04/02/22 lancets 30 gauge (OneTouch Delica #100 ea 01/01/23 Plus Lancet) blood sugar diagnostic (OneTouch #100 ea 06/07/23 Ultra Test strips) glipizide 5 mg tablet See Rx Instructions .Route 02/16/25 .COMPLEX #50 tabs Prosthetic parts #1 ea 04/26/25 gabapentin 300 mg capsule See Rx Instructions .Route 04/26/25 .COMPLEX #90 caps ciprofloxacin HCl 500 mg tablet 500 mg PO BID #20 tabs 04/30/25 (Cipro) Allergies Allergy/AdvReac Type Severity Reaction Status Date / Time No Known Allergies Allergy Verified 04/11/25 13:40 Review of Systems Const: Denies: fever(s) or chills Card: Denies: chest pain Resp: Denies: dyspnea GI: Denies: abdominal pain : Denies: dysuria, urinary frequency or urinary urgency Musc: Denies: neck pain or back pain Skin/Breast: Denies: rash PFSH ED PFSH: Medical History Hypertension Acute respiratory failure with hypoxia Lactic acidosis Sepsis Acute respiratory failure with hypoxia Secondary bacterial pneumonia Metabolic acidosis Acute UTI Hypoxia Influenza A Influenza vaccine needed On anticoagulant therapy URI with cough and congestion Epididymitis Testicular swelling, left GERD (gastroesophageal reflux disease) Encounter for postoperative care Pressure ulcer of BKA stump, stage 2 Painful orthopaedic hardware Clinical diagnosis of COVID-19 Encounter for postoperative care Encounter for postoperative care Fever UTI (urinary tract infection) Fracture of femoral neck, left Cystitis Subcapital fracture of left hip Protracted bacterial bronchitis CAD (coronary artery disease) Abnormal stress test Pyuria Chest pain Urinary retention Above knee amputation of left lower extremity COPD (chronic obstructive pulmonary disease) Diabetes Inguinal nodule Emphysema/COPD Hypothyroidism -Noted elevated TSH, normal free T4 -Continue levothyroxine History of GI bleed Pneumonia due to COVID-19 virus COVID-19 Peripheral arterial disease Onychodystrophy PVD (peripheral vascular disease) Hyperlipemia, mixed Type 2 diabetes mellitus with complication, without long-term current use of insulin -A1c at goal-6.2 -Accuchecks, ISS, hypoglycemia precautions -consistent carb diet as tolerated Hx pulmonary embolism GERD (gastroesophageal reflux disease) Surgical History 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 H/O cataract extraction RIGHT Family History Mother Diabetes Hypertension Other CAD (coronary artery disease) Myocardial infarction Social History Smoking and tobacco/nicotine status: former use of tobacco/nicotine Second hand smoke exposure: No Alcohol intake: never Substance/Drug Use: never Adopted: No Lives independently: Yes Household members: spouse Marital status: Current occupational status: retired Current gender identity: Male Physical Exam Const: COMMON NORMALS: no acute distress GENERAL APPEARANCE: cooperative and comfortable ORIENTATION/CONSCIOUSNESS: Yes awake, Yes oriented to person, Yes oriented to place and Yes oriented to time HENMT: COMMON NORMALS: normocephalic, atraumatic and hearing grossly normal bilaterally HEAD & SCALP: normocephalic and atraumatic Resp: COMMON NORMALS: normal respiratory effort, No retractions, No use of accessory muscles and clear to auscultation bilaterally AUSCULTATION: clear to auscultation bilaterally Cardio: COMMON NORMALS: regular rate, regular rhythm and No murmurs present (Cardio) RATE: regular rate RHYTHM: regular rhythm GI: COMMON NORMALS: Soft to palpation and No hepatosplenomegaly present AUSCULTATION: Yes normoactive bowel sounds PALPATION: Yes Soft to palpation, No Tenderness to palpation present (GI), No Guarding due to palpation present (GI) and Yes No hepatosplenomegaly present Extremity: OTHER: Previous bilateral lower extremity amputations Neuro: SENSORIUM/ORIENTATION: Yes oriented to person, Yes oriented to place and Yes oriented to time Skin: COMMON NORMALS: no rashes or lesions noted GENERAL SKIN EXAM: no rashes or lesions noted Course Vital Signs: Vital signs: Vital Signs Temperature 99.2 F 04/30/25 13:27 Pulse Rate 77 04/30/25 16:14 Respiratory Rate 18 04/30/25 13:27 Blood Pressure 138/80 04/30/25 16:14 Pulse Oximetry 94 04/30/25 16:14 Oxygen Delivery Me thod Room Air 04/30/25 13:27 MDM - Fall Medical Decision Making No acute fractures patient was found to have a mild cystitis. Discharged home with oral antibiotics was given initial dose of antibiotics here follow-up with primary care. Return to ER for any further problems. Mildly low sodium however it is about in the range she has been in the past Medical Records I reviewed the patient's medical records. Lab Data I reviewed the patient's lab results. 04/30/25 13:37 04/30/25 13:37 Radiology Impressions Cervical Spine CT 04/30/25 13:54 Impression: 1. Negative for fracture or dislocation. 2. 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 Head CT 04/30/25 13:55 Impression: Negative CT scan of the head Laboratory Results WBC 12.14 10^3/uL (3.29-11.43) H 04/30/25 13:37 RBC 5.17 10^6/uL (3.85-5.65) 04/30/25 13:37 Hgb 13.00 g/dL (11.27-16.99) 04/30/25 13:37 Hct 41.3 % (37-53) 04/30/25 13:37 MCV 79.9 fl (82-101) L 04/30/25 13:37 MCH 25.1 pg (27-33) L 04/30/25 13:37 MCHC 31.5 g/dL (30-55) 04/30/25 13:37 RDW 15.7 % (12.1-15.1) H 04/30/25 13:37 Plt Count 212 10^3/cmm (157-399) 04/30/25 13:37 MPV 9.4 fL (7.4-10.4) 04/30/25 13:37 Neut % (Auto) 88.2 % 04/30/25 13:37 Lymph % (Auto) 4.7 % 04/30/25 13:37 [place] % (Auto) 5.2 % 04/30/25 13:37 Eos % (Auto) 0.7 % 04/30/25 13:37 Baso % (Auto) 0.7 % 04/30/25 13:37 Neut # (Auto) 10.71 10^3/uL (1.8-7.7) H 04/30/25 13:37 Lymph # (Auto) 0.6 10^3/uL (0.8-4.8) L 04/30/25 13:37 [place] # (Auto) 0.6 10^3/uL (0.2-0.9) 04/30/25 13:37 Eos # (Auto) 0.1 10^3/uL (0.0-0.8) 04/30/25 13:37 Baso # (Auto) 0.1 10^3/uL (0.0-0.1) 04/30/25 13:37 Nucleated RBC % (auto) 0 % 04/30/25 13:37 Nucleated RBCs # 0.0 /100WBC 04/30/25 13:37 Sodium 132 mmol/L (136-145) L 04/30/25 13:37 Potassium 4.2 mmol/L (3.5-5.1) 04/30/25 13:37 Chloride 97 mmol/L (98-107) L 04/30/25 13:37 Carbon Dioxide 20 mmol/L (22-29) L 04/30/25 13:37 Anion Gap 19.2 (5-19) H 04/30/25 13:37 BUN 13 mg/dL (8-23) 04/30/25 13:37 Creatinine 0.8 mg/dL (0.7-1.2) 04/30/25 13:37 GFR Calculation Not Reportable 04/30/25 13:37 Glucose 105 mg/dL (65-115) 04/30/25 13:37 Calculated Osmolality 274 mOsm/kg (285-295) L 04/30/25 13:37 Calcium 8.8 mg/dL (8.5-10.5) 04/30/25 13:37 Total Bilirubin 0.8 mg/dL (0.15-1.2) 04/30/25 13:37 AST 17 U/L (0-40) 04/30/25 13:37 ALT 8 U/L (0-41) 04/30/25 13:37 Alkaline Phosphatase 85 U/L (40-130) 04/30/25 13:37 Total Protein 7.1 g/dL (6.6-8.7) 04/30/25 13:37 Albumin 4.3 g/dL (3.5-5.2) 04/30/25 13:37 Globulin 2.8 g/dL (1.3-4.6) 04/30/25 13:37 Urine Color Yellow (Yellow) 04/30/25 14:30 Urine Appearance Cloudy (CLEAR) A 04/30/25 14:30 Urine pH 7.0 (5-7) 04/30/25 14:30 Ur Specific [place] 1.017 (1.005-1.030) 04/30/25 14:30 Urine Protein 1+ (Negative) A 04/30/25 14:30 Urine Glucose (UA) Negative (Normal) 04/30/25 14:30 Urine Ketones 1+ (Negative) H 04/30/25 14:30 Urine Blood 2+ (Negative) A 04/30/25 14:30 Urine Nitrate Negative (Negative) 04/30/25 14:30 Urine Bilirubin Negative (Negative) 04/30/25 14:30 Urine Urobilinogen 1.0 mg/dL (Negative) 04/30/25 14:30 Ur Leukocyte Esterase 2+ (Negative) A 04/30/25 14:30 Urine RBC 0-4 /hpf (0-2) H 04/30/25 14:30 Urine WBC 15-25 /hpf (0-5) H 04/30/25 14:30 Ur Squamous Epith Cells 0-4 /hpf (0-5) H 04/30/25 14:30 Amorphous Sediment Not Reportable 04/30/25 14:30 Urine Bacteria 2+ /hpf (NONE) H 04/30/25 14:30 Hyaline Casts 0-4 /lpf H 04/30/25 14:30 Urine Mucus None /hpf 04/30/25 14:30 All radiology interpretation(s) finalized by discharge Discharge Plan Discharge Patient Disposition: Home Clinical Impression: Fall, Cystitis Condition: Stable Prescriptions: New ciprofloxacin HCl [Cipro] 500 mg tablet 500 mg PO BID Qty: 20 0RF No Action aspirin 81 mg tablet,delayed release (DR/EC) 81 mg PO QAM (DME) blood-glucose meter [Blood Glucose Monitoring] Kit See Rx Instructions .ROUTE .MEDSUPPLY Qty: 1 0RF Rx Instructions: As directed (DME) lancets [Fingerstix Lancets] Misc See Rx Instructions .Route Qty: 100 0RF Rx Instructions: As directed glipizide 5 mg tablet See Rx Instructions .ROUTE .COMPLEX Qty: 50 0RF Dose Instruction: TAKE 1/2 (ONE-HALF) TABLET BY MOUTH ONCE DAILY IN THE MORNING . APPOINTMENT REQUIRED FOR FUTURE REFILLS Rx Instructions: TAKE 1/2 (ONE-HALF) TABLET BY MOUTH ONCE DAILY IN THE MORNING . (DME) OneTouch Ultra Test Strip See Rx Instructions .Route Qty: 100 5RF Rx Instructions: test one time daily (DME) lancets [OneTouch Delica Plus Lancet] 30 gauge misc See Rx Instructions .ROUTE .COMPLEX Qty: 100 0RF Dose Instruction: USE DIRECTED Rx Instructions: USE DIRECTED (DME) Prosthetic parts See Rx Instructions .Route .MEDSUPPLY Qty: 1 0RF Rx Instructions: replace and or repair parts as needed gabapentin 300 mg capsule See Rx Instructions .ROUTE .COMPLEX Qty: 90 0RF Dose Instruction: TAKE 1 CAPSULE BY MOUTH THREE TIMES DAILY AT 0800, 1400, AND 1999 Rx Instructions: TAKE 1 CAPSULE BY MOUTH THREE TIMES DAILY AT 0800, 1400, AND 2000 tamsulosin 0.4 mg capsule 0.4 mg PO DAILY alendronate 70 mg tablet 70 mg PO Q7D Rx Instructions: WEDNESDAY clopidogrel 75 mg tablet 75 mg PO DAILY simvastatin 40 mg tablet 40 mg PO .DAILY@1999 levothyroxine 75 mcg tablet 75 mcg PO DAILY omeprazole 20 mg capsule,delayed release(DR/EC) 20 mg PO BID Discharge Orders: Discharge ED (Routine); Ordered 04/30/25 Ordered By: Ravindra Mitchell Referrals: Dulce Maria Alonzo FNP [Primary Care Provider, Family Practice] Patient Instructions: Opioid Safety, Pain Management, Patient Portal & Demetrice Instructions Activity Restrictions/Additional Instructions: [facility] you [facility] needs today. It is very important that you follow up as instructed or that you return to the Emergency Department should you have concerns or if your condition changes or worsens in any way. You were seen in the emergency room after a fall. X-rays were normal. CT was also normal. Recommend that you follow-up with your primary care doctor. You were noted to have a mild bladder infection you are given a dose of antibiotics here and discharged home with oral antibiotics start tomorrow. Print Language: Qatari Coding Level of Care Code ED General Ledger Bookkeeper for Oniel Ozuna
[2025-04-30 13:42] LABS: Hematocrit 41.3 % (37-53); Hemoglobin 13.00 g/dL (11.27-16.99); Mean Corpuscular HGB Conc 31.5 g/dL (30-55); Mean Corpuscular Hemoglobin 25.1 pg (27-33); Mean Corpuscular Volume 79.9 fl (82-101); Nucleated Red Blood Cells % 0 %; Platelet Count 212 10^3/cmm (157-399); Red Blood Count 5.17 10^6/uL (3.85-5.65); White Blood Count 12.14 10^3/uL (3.29-11.43)
--- NOTE | 2025-04-30 13:54 | CT_ITS ---
WS: [id number] CT cervical spine. Additional two-dimensional coronal and sagittal reconstruction was performed. 04/30/2025 Clinical Data: trauma Comparison: None. DLP: 1373.[address] scans at [facility] use at least one of these dose optimization techniques: automated exposure control; mA and/or kV adjustment per patient size (includes targeted exams where dose is matched to clinical indication); or iterative reconstruction. Findings: No compression fractures are seen. The disc spaces C5-C6 and C6/C7 are narrow. There are osteophytes from C3-C7. The spinous processes are in good alignment. The odontoid is unremarkable. There is no prevertebral soft tissue swelling. The soft tissues of the cervical spine show carotid bifurcation calcification. CT/CT cervical spin wo con* [id number] Impression: 1. Negative for fracture or dislocation. 2. 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
--- NOTE | 2025-04-30 13:55 | CT_ITS ---
WS: [id number] CT scan of the head, 04/30/2025 Clinical Data: trauma Comparison: None. DLP: 1373.[address] scans at [facility] use at least one of these dose optimization techniques: automated exposure control; mA and/or kV adjustment per patient size (includes targeted exams where dose is matched to clinical indication); or iterative reconstruction. Findings: The ventricular system is minimally dilated without shift. No recent infarct or hemorrhage is seen. There are no abnormal intracerebral masses. The cerebellum and brainstem are not remarkable. Bony windows of the skull and skull base show no fractures or erosions. The mastoid air cells, internal auditory canals, sella turcica, intraorbital contents, and paranasal sinuses are unremarkable. CT/CT head wo con* [id number] Impression: Negative CT scan of the head
[2025-04-30 14:04] LABS: Alanine Aminotransferase 8 U/L (0-41); Albumin Level 4.3 g/dL (3.5-5.2); Alkaline Phosphatase 85 U/L (40-130); Aspartate Amino Transferase 17 U/L (0-40); Blood Urea Nitrogen 13 mg/dL (8-23); Calcium 8.8 mg/dL (8.5-10.5); Carbon Dioxide 20 mmol/L (22-29); Chloride 97 mmol/L (98-107); Creatinine Clr Calc Pharmacy 76.1149; Globulin 2.8 g/dL (1.3-4.6); Glucose 105 mg/dL (65-115); Osmolality Calculated 274 mOsm/kg (285-295); Sodium 132 mmol/L (136-145); Total Protein 7.1 g/dL (6.6-8.7)
[2025-04-30 14:07] LABS: Anion Gap 19.2 (5-19); Potassium 4.2 mmol/L (3.5-5.1)
[2025-04-30 14:43] LABS: Glucose Urine UA Negative (Normal); Nitrate Urine Negative (Negative); Specific Gravity, Urine 1.017 (1.005-1.030)
[2025-04-30 14:49] VITALS: BP 113/74
[2025-04-30 14:58] LABS: Add Urine Microscopic? YES
[2025-04-30] MEDS: cefTRIAXone 1,000 mg SDV 1000 MG IVP (16:05)
[2025-04-30 16:14] VITALS: BP 138/80; PULSE 77; O2SAT 94
== END 2025-04-30 16:21 | disposition home or self-care (01) ==
PROVIDERS: Emergency Provider Family Medicine; PCP Nurse Practitioner Family
DX: N30.90 Cystitis, unspecified without hematuria (principal); Z79.82 Long term (current) use of aspirin; Z79.02 Long term (current) use of antithrombotics/antiplatelets; Z87.891 Personal history of nicotine dependence; Z95.1 Presence of aortocoronary bypass graft; E78.2 Mixed hyperlipidemia; I25.10 Atherosclerotic heart disease of native coronary artery without angina pectoris; I10 Essential (primary) hypertension; J44.9 Chronic obstructive pulmonary disease, unspecified; E11.9 Type 2 diabetes mellitus without complications; Z89.612 Acquired absence of left leg above knee; Z89.511 Acquired absence of right leg below knee
CPT/HCPCS: 36415; 70450; 72125; 80053; 81001; 85025; 87077; 87086; 87186; 93005; 96374; 99285; J0696

== ENCOUNTER → 2025-07-13 10:32 | Outpatient (BNVA) | payer MEDICARE, MEDICAID, SELFPAY | PROVIDERS: PCP Nurse Practitioner Family; Visit Provider Nurse Practitioner Family | DX: I10 Essential (primary) hypertension (principal); R53.83 Other fatigue | CPT/HCPCS: 80053; 84443; 85025 ==